=== PATIENT | male | born 1940 | race Caucasian/White ===

== ENCOUNTER 2016-08-26 19:10 | Inpatient (IN) | payer OTHER, MEDICARE ==
[2016-08-26] MEDS ORDERED: SODIUM CHLORIDE 1,000 ML IV STA (19:53)
--- NOTE | 2016-08-26 19:56 | PDOC ---
History of Present Illness <Leo Tan - Last Filed: 08/26/16 21:02> - General History Source: Patient Exam Limitations: No Limitations - History of Present Illness Initial Comments: 08/26/16 20:18 The patient is a 76 year old male with significant past medical history of lymphoma leukemia, hypertension, and hyperlipidemia who presents to the ED sent by PMD for elevated calcium levels. As per daughter, at bedside, patient visited Dr. Love today in his office where he had his blood drawn. Later in the evening, daughter was informed that the patients calcium levels were significantly elevated and patient should be brought into the ER. Patient has a schedule CT as an outpatient tomorrow morning. Daughter reports she noted patient has not been himself and noted a gradual decline over the past month. Normally, patient is active at baseline. She also reports intermittent fever and chills with diffuse abdominal pain, generalized weakness and loss of appetite over the past month and noted a weight loss over the past few months. The patient denies diaphoresis, cough, SOB, and chest pain. The patient denies nausea, vomiting, and diarrhea. Allergies: NKDA Social History: No alcohol, tobacco, or drug use reported. Past Surgical History: Appendectomy, CABG X4 (2002), Cholecystectomy PCP: Dr. Jamel Love <Mehreen Navarro - Last Filed: 08/26/16 22:14> - General Chief Complaint: Revisit, Lab Variance Stated Complaint: PCP SENT/WEAKNESS Time Seen by Provider: 08/26/16 19:47 Past History - Past Medical History Anemia: No Cancer: Yes (LYMPHOMA CLL) Cardiac Disorders: Yes (ASHD S/P CABG) CVA: No CHF: No Dementia: No Diabetes: No GI Disorders: Yes (DUODENAL ADENOMA, PEPTIC ULCER, S/P INFECTIOUS COLITIS) Disorders: Yes (URETHRAL POLYP) HTN: Yes Hypercholesterolemia: Yes Liver Disease: No Seizures: No Thyroid Disease: No - Surgical History Abdominal Surgery: No Appendectomy: Yes Cardiac Surgery: Yes (CABG X4 VESSELS 2002) Cholecystectomy: Yes (2006) Lung Surgery: No Neurologic Surgery: No Orthopedic Surgery: No - Immunization History Immunization Up to Date: Yes - Psycho/Social/Smoking Cessation Hx Suicidal Ideation: No Smoking History: Never smoked Have you smoked in the past 12 months: No Number of Cigarettes Smoked Daily: 0 Information on smoking cessation initiated: No Hx Alcohol Use: No Drug/Substance Use Hx: No Substance Use Type: None Hx Substance Use Treatment: No <Leo Tan - Last Filed: 08/26/16 21:02> <Mehreen Navarro - Last Filed: 08/26/16 22:14> - Past Medical History Allergies/Adverse Reactions: Allergies Allergy/AdvReac Type Severity Reaction Status Date / Time No Known Drug Allergies Allergy Verified 08/26/16 19:33 Home Medications: Ambulatory Orders Amlodipine Besylate [Norvasc -] 10 mg PO DAILY 05/07/13 Aspirin [ASA -] 81 mg PO DAILY 05/07/13 Quinapril HCl [Accupril -] 40 mg PO DAILY 05/07/13 Pravastatin Sodium [Pravachol -] 20 mg PO HS 05/10/13 Silodosin [Rapaflo] 8 mg PO HS 05/10/13 Cholecalciferol (Vitamin D3) [Vitamin D -] 400 unit PO DAILY 09/28/15 Cyanocobalamin (Vitamin B-12) [Vitamin B12] 2,500 mcg PO DAILY 09/28/15 Metoprolol Succinate [Toprol Xl] 50 mg PO DAILY 09/28/15 Pantoprazole Sodium [Protonix -] 40 mg PO DAILY #30 tablet.ec 09/29/15 Review of Systems - Review of Systems Able to Perform ROS?: Yes Comments:: 08/26/16 20:18 +elevated calcium, fever, chills, diffuse abdominal pain, generalized weakness , loss of appetite and weight loss Absent: diaphoresis, cough, SOB, chest pain, nausea, vomiting, and diarrhea <Mehreen Navarro - Last Filed: 08/26/16 22:14> *Physical Exam - Vital Signs Last Vital Signs Temp Pulse Resp BP Pulse Ox 97.8 F 86 14 119/73 95 08/26/16 19:33 08/26/16 19:33 08/26/16 19:33 08/26/16 19:33 08/26/16 19:33 - Physical Exam General Appearance: Yes: Nourished, Appropriately Dressed HEENT: positive: EOMI, Normal ENT Inspection Neck: positive: Supple. negative: Tender Respiratory/Chest: positive: Lungs Clear, Normal Breath Sounds. negative: Respiratory Distress Cardiovascular: positive: Regular Rhythm, Regular Rate, Systolic Murmur Musculoskeletal: positive: Normal Inspection. negative: Vertebral Tenderness Extremity: positive: Normal Capillary Refill, Normal Inspection, Normal Range of Motion. negative: Pedal Edema Integumentary: positive: Normal Color. negative: Rash, Ecchymosis Neurologic: positive: Fully Oriented, Alert, Normal Mood/Affect, Normal Response , Motor Strength 5/5 <Leo Tan - Last Filed: 08/26/16 21:02> - Vital Signs Last Vital Signs Temp Pulse Resp BP Pulse Ox 97.8 F 86 14 119/73 95 08/26/16 19:33 08/26/16 19:33 08/26/16 19:33 08/26/16 19:33 08/26/16 19:33 <Mehreen Navarro - Last Filed: 08/26/16 22:14> Heart Score/ECG Review - ECG Impressions Comment:: 08/26/16 22:13 Sinus rhythm with 1st degree AV block @74bpm Nonspecific intraventricular conduction delay Borderline ECG <Mehreen Navarro - Last Filed: 08/26/16 22:14> ED Treatment Course - LABORATORY CBC & Chemistry Diagram: 08/26/16 20:15 08/26/16 20:15 <Leo Tan - Last Filed: 08/26/16 21:02> - LABORATORY CBC & Chemistry Diagram: 08/26/16 20:15 08/26/16 20:15 <Mehreen Navarro - Last Filed: 08/26/16 22:14> Medical Decision Making - Medical Decision Making 08/26/16 20:[address] Dariusz Myers covering for Dr. Jamel Love (via answering service ) at 20:54 Awaiting call back Patient's case discussed with Dr. Myers at 21:06 <Mehreen Navarro - Last Filed: 08/26/16 22:14> *DC/Admit/Observation/Transfer - Discharge Dispostion Admit: Yes <Leo Tan - Last Filed: 08/26/16 21:02> - Attestations Scribe Attestion: 08/26/16 20:18 Documentation prepared by Mehreen Navarro, acting as medical file clerk for Leo Tan MD. <Mehreen Navarro - Last Filed: 08/26/16 22:14> Diagnosis at time of Disposition: Hypercalcemia - Referrals
[2016-08-26 20:22] LABS: BASOPHIL 1.2 % (0-2.0); EOSINOPHIL 1.6 % (0-4.5); MCHC 33.9 g/dl (32.0-35.9); MEAN CELL VOLUME 85.3 fl (80-96); MEAN PLT VOLUME 7.5 fl (7.5-11.1); NEUTROPHILS 53.7 % (42.8-82.8); PLATELET COUNT 246 K/MM3 (134-434); RDW 15.1 % (11.9-15.9); WHITE BLOOD COUNT 9.5 K/mm3 (4.0-10.0)
[2016-08-26 20:39] LABS: CREATININE 1.9 mg/dL (0.7-1.3)
[2016-08-26] MEDS ORDERED: PATIENT'S OWN MEDICATION (NON-FORMULARY) (Pravastatin Sodium 20 MG) PO SCH (22:00)
[2016-08-26] MEDS ORDERED: HEPARIN NA (PORCINE) 5,000 UNITS/ML 1ML VIAL ONE (22:18)
[2016-08-26 22:30] LABS: URINE APPEARANCE CLEAR; URINE BILIRUBIN NEGATIVE (NEGATIVE); URINE BLOOD NEGATIVE (NEGATIVE); URINE COLOR STRAW; URINE GLUCOSE (UA) NEGATIVE (NEGATIVE); URINE KETONE NEGATIVE (NEGATIVE); URINE LEUK ESTERASE NEGATIVE (NEGATIVE); URINE NITRITE NEGATIVE (NEGATIVE); URINE PROTEIN NEGATIVE (NEGATIVE); URINE UROBILINOGEN NEGATIVE E.U./dl (0.2-1.0)
[2016-08-26] MEDS: HEPARIN NA (PORCINE) 5,000 UNITS/ML 1ML VIAL SQ SCH (22:30)
[2016-08-26] MEDS: SODIUM CHLORIDE 1,000 ML IV SCH (22:30)
[2016-08-27 00:46] VITALS: BMI 23.8
[2016-08-27] MEDS: HEPARIN NA (PORCINE) 5,000 UNITS/ML 1ML VIAL SQ SCH ×3 (06:52→21:31)
[2016-08-27 08:04] LABS: EOSINOPHIL 2.1 % (0-4.5); MCH 29.7 pg (25.7-33.7); MCHC 35.1 g/dl (32.0-35.9); MEAN CELL VOLUME 84.7 fl (80-96); MEAN PLT VOLUME 7.2 fl (7.5-11.1); NEUTROPHILS 53.5 % (42.8-82.8); PLATELET COUNT 194 K/MM3 (134-434); RDW 14.5 % (11.9-15.9); WHITE BLOOD COUNT 8.8 K/mm3 (4.0-10.0)
[2016-08-27 08:35] LABS: ALBUMIN 3.4 g/dl (3.4-5.0); CALCIUM 12.7 mg/dL (8.5-10.1); CREATININE 1.9 mg/dL (0.7-1.3); MAGNESIUM 1.6 mg/dL (1.8-2.4); PHOSPHOROUS 2.6 mg/dL (2.5-4.9)
[2016-08-27 08:36] LABS: BILIRUBIN,TOTAL 0.6 mg/dL (0.2-1.0); TOT PROT 6.3 g/dl (6.4-8.2)
[2016-08-27] MEDS: METOPROLOL SUCCINATE 50 MG TAB.SR.24H (FP) PO SCH (09:45)
[2016-08-27] MEDS: CYANOCOBALAMIN 1,000 MCG TABLET (FP) PO SCH (09:45)
[2016-08-27] MEDS: PANTOPRAZOLE 40 MG TABLET (FP) PO SCH (09:45)
[2016-08-27] MEDS: ASPIRIN 81 MG CHEWABLE TABLETS PO SCH (09:45)
[2016-08-27] MEDS ORDERED: METOPROLOL SUCCINATE 50 MG TAB.SR.24H (FP) PO SCH (10:00)
[2016-08-27] MEDS ORDERED: amLODIPine BESYLATE 10 MG TABLET (FP) PO SCH (10:00)
--- NOTE | 2016-08-27 11:29 | HP ---
Admitting History and Physical - Primary Care Physician PCP: Jamel Love - Admission Chief Complaint: I was not eating History of Present Illness: Mr Saucedo is a very pleasant 76 year old male who comes in after being found to have elevated calcium. History comes from patient, but is partly translated by son at bedside since Malian is his first language. Mr Saucedo states over the past 2-4 weeks he has not been feeling well. He says that his appetite has been severely decreased and he has been nauseous without vomiting. He has not been eating when he normally eats 3 meals. He has lost about 15 pounds secondary to this. He is having diffuse abdominal pain with this as well. He had a general lethargy and weakness associated with this. He was also having lightheadedness, particularly on standing these past few weeks.He was seen by Dr Love and his blood was drawn, his calcium was elevated and he was instructed to come in for admission. He received IVF and currently is feeling better. He says his appetite is improved today and the pain is resolved. He also has more energy. He denies passing out, fevers, chills, chest pain, shortness of breath, diarrhea, difficulty or pain on urination, or swelling. History Source: Patient Limitations to Obtaining History: Language Barrier - Past Medical History Cardiovascular: Yes: CAD, HTN, Hyperlipdemia Heme/Onc: Yes: Other (leukemia) - Past Surgical History Past Surgical History: Yes: Appendectomy, CABG, Cholecystectomy - Smoking History Smoking history: Never smoked Have you smoked in the past 12 months: No Aproximately how many cigarettes per day: 0 - Alcohol/Substance Use Hx Alcohol Use: No History of Substance Use: reports: None - Social History Usual Living Arrangement: Yes: With Spouse ADL: Independent History of Recent Travel: No Home Medications - Allergies Allergies/Adverse Reactions: Allergies Allergy/AdvReac Type Severity Reaction Status Date / Time No Known Drug Allergies Allergy Verified 08/26/16 19:33 - Home Medications Home Medications: Ambulatory Orders Amlodipine Besylate [Norvasc -] 10 mg PO DAILY 05/07/13 Aspirin [ASA -] 81 mg PO DAILY 05/07/13 Quinapril HCl [Accupril -] 40 mg PO DAILY 05/07/13 Pravastatin Sodium [Pravachol -] 20 mg PO HS 10/14/13 Silodosin [Rapaflo] 8 mg PO HS 05/10/13 Cholecalciferol (Vitamin D3) [Vitamin D -] 400 unit PO DAILY 09/28/15 Cyanocobalamin (Vitamin B-12) [Vitamin B12] 2,500 mcg PO DAILY 09/28/15 Metoprolol Succinate [Toprol Xl] 50 mg PO DAILY 09/28/15 Family Disease History - Family Disease History Family Disease History: Heart Disease: Father Review of Systems Findings/Remarks: Full review of systems obtained, as per HPI and otherwise negative Physical Examination Vital Signs: Vital Signs Temperature 98.4 F 08/27/16 06:20 Pulse Rate 68 08/27/16 06:20 Respiratory Rate 20 08/27/16 06:20 Blood Pressure 126/72 08/27/16 06:20 O2 Sat by Pulse Oximetry (%) 96 08/26/16 21:08 Constitutional: Yes: Well Nourished, No Distress, Calm Eyes: Yes: Conjunctiva Clear, EOM Intact HENT: Yes: Atraumatic, Normocephalic Cardiovascular: Yes: Regular Rate and Rhythm. No: Gallop, Murmur, Rub Respiratory: Yes: Regular, CTA Bilaterally. No: Rales, Rhonchi, Wheezes Gastrointestinal: Yes: Normal Bowel Sounds, Soft. No: Distention, Tenderness Extremities: Yes: WNL Edema: No Labs: CBC, BMP 08/27/16 07:30 08/27/16 07:30 Problem List - Problems (1) Hypercalcemia Assessment/Plan: -concerning this is most likely secondary to malignancy -TSH normal, not secondary to hyperthyroidism -check iPTH and ionized calcium, however since calcium is above 14 less likely primary hyperparathyroidism -continue hydration, improved -will hold on lasix unless nephrology feels is needed -nephrology consulted -oncology consulted Code(s): E83.52 - HYPERCALCEMIA (2) Abdominal pain Assessment/Plan: -suspect this is most likely secondary to hypercalcemia -also associated with nausea and anorexia -however will consult GI as well -considering CT scan as can be caused by solid tumors such as pancreatic cancer -however will await oncology and GI evaluation Code(s): R10.9 - UNSPECIFIED ABDOMINAL PAIN (3) JEROMY (acute kidney injury) Assessment/Plan: -unsure if this is new or chronic as last lab was 5 years ago -continue hydration -monitor Code(s): N17.9 - ACUTE KIDNEY FAILURE, UNSPECIFIED (4) CAD (coronary artery disease) Assessment/Plan: -stable -continue aspirin and toprol xl -continue statin Code(s): I25.10 - ATHSCL HEART DISEASE OF [place] CORONARY ARTERY W/O ANG PCTRS (5) HTN (hypertension) Assessment/Plan: -controlled -holding lisinopril and amlodipine -if elevates, will add back amlodipine -monitor renal function to evaluate if lisinopril is needed as well -suspect after appropriately fluid resuscitated will increase Code(s): I10 - ESSENTIAL (PRIMARY) HYPERTENSION (6) HLD (hyperlipidemia) Assessment/Plan: -continue statin Code(s): E78.5 - HYPERLIPIDEMIA, UNSPECIFIED
[2016-08-27] MEDS: SODIUM CHLORIDE 1,000 ML IV SCH ×2 (12:26→20:28)
--- NOTE | 2016-08-27 15:10 | CONSULT ---
Consultation: REQUESTING PROVIDER: CONSULT REQUEST: We have been asked to medically evaluate this patient for (ckd and hypercalcemia). HISTORY OF PRESENT ILLNESS: patient is a 76 year old male with significant past medical history of lymphoma leukemia, hypertension, and hyperlipidemia who presents to the ED sent by PMD for elevated calcium levels. Patient also report loss of apatite and loss of weight in last few months REVIEW OF SYSTEMS: CONSTITUTIONAL: present generalized weakness, loss of appetite, loss of weight Absent: fever, chills, HEENT: Absent: rhinorrhea, nasal congestion, throat pain, throat swelling, CARDIOVASCULAR: Absent: chest pain, syncope, palpitations, lightheadedness, peripheral edema RESPIRATORY: Absent: cough, shortness of breath, GASTROINTESTINAL: present: pain abdomen Absent: abdominal distension, vomiting, diarrhea, constipation GENITOURINARY: Absent: dysuria, frequency, urgency, hesitancy, hematuria, PHYSICAL EXAMINATION Vital Signs - 24 hr 08/27/16 08/27/16 08/27/16 01:55 06:20 09:00 Temperature 97.8 F 98.4 F Pulse Rate 64 68 Respiratory 18 20 20 Rate Blood Pressure 145/63 126/72 O2 Sat by Pulse 96 Oximetry (%) 08/27/16 08/27/16 08/27/16 10:00 14:00 14:27 Temperature 97.9 F 98.4 F 98.1 F Pulse Rate 77 80 81 Respiratory 20 20 Rate Blood Pressure 128/72 144/81 144/81 O2 Sat by Pulse Oximetry (%) GENERAL: Awake, alert, and fully oriented, in no acute distress. HEAD: Normal with no signs of trauma. EYES: Pupils equal, round and reactive to light, EARS, NOSE, THROAT: Ears normal, nares patent, oropharynx clear without exudates. Moist mucous membranes. NECK: Normal range of motion, left supraclavicular lymphadenopathy, LUNGS: Breath sounds equal, clear to auscultation bilaterally. No wheezes, and no crackles. No accessory muscle use. HEART: s1s2 normal ABDOMEN: Soft, nontender, not distended, normoactive bowel sounds, no guarding, no rebound, MUSCULOSKELETAL: Normal range of motion at all joints. No bony deformities or tenderness. No CVA tenderness. UPPER EXTREMITIES: 2+ pulses, warm, well-perfused. No cyanosis. No clubbing. LOWER EXTREMITIES: 2+ pulses, warm, well-perfused. No calf tenderness. No peripheral edema. PSYCHIATRIC: Cooperative. Good eye contact. SKIN: Warm, dry, Laboratory Results - last 24 hr 08/26/16 08/27/16 08/27/16 22:24 07:30 07:30 WBC 8.8 RBC 4.16 Hgb 12.4 Hct 35.3 L MCV 84.7 MCHC 35.1 RDW 14.5 Plt Count 194 D MPV 7.2 L Neutrophils % 53.5 Lymphocytes % 35.0 Monocytes % 8.4 Eosinophils % 2.1 Basophils % 1.0 Sodium 142 Potassium 3.6 Chloride 105 Carbon Dioxide 28 Anion Gap 9 BUN 36 H Creatinine 1.9 H Creat Clearance w eGFR 34.46 Random Glucose 106 D Calcium 12.7 H Phosphorus 2.6 Magnesium 1.6 L Total Bilirubin 0.6 AST 16 ALT 16 Alkaline Phosphatase 66 Total Protein 6.3 L Albumin 3.4 Urine Color Straw Urine Appearance Clear Urine pH 6.0 Ur Specific [place] 1.006 Urine Protein Negative Urine Glucose (UA) Negative Urine Ketones Negative Urine Blood Negative Urine Nitrite Negative Urine Bilirubin Negative Urine Urobilinogen Negative Ur Leukocyte Esterase Negative Active Medications Generic Name Dose Route Start Last Admin Trade Name Freq PRN Reason Stop Dose Admin Acetaminophen 650 mg 08/26/16 21:21 Tylenol - PO Q4H PRN FEVER OR PAIN Aspirin 81 mg 08/27/16 10:00 08/27/16 09:45 Asa - PO 81 mg DAILY FREDY Administration Cyanocobalamin 2,500 mcg 08/27/16 10:00 08/27/16 09:45 Vitamin B12 - PO 2,500 mcg DAILY FREDY Administration Heparin Sodium (Porcine) 5,000 unit 08/26/16 22:00 08/27/16 14:01 Heparin - SQ 5,000 unit TID FREDY Administration Sodium Chloride 1,000 mls @ 150 mls/hr 08/27/16 13:30 Normal Saline - IV ASDIR FREDY Metoprolol Succinate 50 mg 08/27/16 10:00 08/27/16 09:45 Toprol Xl - PO 50 mg DAILY FREDY Administration Non-Formulary Medication 20 mg 08/26/16 22:00 Pravastatin Sodium PO HS FREDY Pantoprazole Sodium 40 mg 08/27/16 10:00 08/27/16 09:45 Protonix - PO 40 mg DAILY FREDY Administration ASSESSMENT/PLAN: impression Hypercalcemia JEROMY CAD HTN HLD H/O small lymphocytic lymphoma/CLL Plan Hypercalcemia could be due to malignancy Continue with IV fluid, Ca decreased 12.7, responding to Iv fluid Follow PTH, chances of primary hyperparathyroidism is less Oncology consult Get labs in morning low calcium diet Follow ua and urine elcetrolytes, urine creatnine follow renal USG follow cxr Avoid nephrotoxic drugs, hold lisinopril Dispo: We will continue to follow the patient. Thank you for this consultative opportunity. Visit type - Emergency Visit Emergency Visit: Yes ED Registration Date: 08/26/16 Care time: The patient presented to the Emergency Department on the above date and was hospitalized for further evaluation of their emergent condition. - New Patient This patient is new to me today: Yes Date on this admission: 08/27/16 - Critical Care Critical Care patient: No
--- NOTE | 2016-08-27 15:17 | CONSULT ---
Consultation: REQUESTING PROVIDER: CONSULT REQUEST: We have been asked to medically evaluate this patient for ( Abdominal pain ). HISTORY OF PRESENT ILLNESS: 76 year old male with pmh Duodenal adenoma, Peptic ulcer at 15, Hpilori Gastritis (treated), Pancreatic cyst, CLL, CAD, CABG, HTN, HPLD presented to the ED for hypercalcemia. For the last 2 month pt states he lost 13 lbs, also for the last month he has been having generalized weakness, lethargy, lightheadedness, malaise, nausea, gas and anorexia. Pt also had intermittent diffuse abdominal pain, burning, sometimes cramping associated with food lasting 2-4 hours, non radiating. When arrived in the ED pt had Ca level of 14, pt was treated with IV fluid, this morning Ca was 12. Now pt has much more energy no more dizziness. Appetite has returned, pt ate breakfast and lunch, no longer nauseous. Abdominal pain has subsided. Pt denies any diarrhea, last bowel movement was 3 days ago REVIEW OF SYSTEMS: CONSTITUTIONAL: Absent: fever, chills, diaphoresis, generalized weakness, malaise, loss of appetite, weight change HEENT: Absent: rhinorrhea, nasal congestion, throat pain, throat swelling, difficulty swallowing, mouth swelling, ear pain, eye pain, visual changes CARDIOVASCULAR: Absent: chest pain, syncope, palpitations, irregular heart rate, lightheadedness , peripheral edema RESPIRATORY: Absent: cough, shortness of breath, dyspnea with exertion, orthopnea, wheezing, stridor, hemoptysis GASTROINTESTINAL: Absent: abdominal pain, abdominal distension, nausea, vomiting, diarrhea, constipation, melena, hematochezia GENITOURINARY: Absent: dysuria, frequency, urgency, hesitancy, hematuria, flank pain, genital pain MUSCULOSKELETAL: Absent: myalgia, arthralgia, joint swelling, back pain, neck pain SKIN: Absent: rash, itching, pallor HEMATOLOGIC/IMMUNOLOGIC: Absent: easy bleeding, easy bruising, lymphadenopathy, frequent infections ENDOCRINE: Absent: unexplained weight gain, unexplained weight loss, heat intolerance, cold intolerance NEUROLOGIC: Absent: headache, focal weakness or paresthesias, dizziness, unsteady gait, seizure, mental status changes, bladder or bowel incontinence PSYCHIATRIC: Absent: anxiety, depression, suicidal or homicidal ideation, hallucinations. PHYSICAL EXAMINATION Vital Signs - 24 hr 08/27/16 08/27/16 08/27/16 01:55 06:20 09:00 Temperature 97.8 F 98.4 F Pulse Rate 64 68 Respiratory 18 20 20 Rate Blood Pressure 145/63 126/72 O2 Sat by Pulse 96 Oximetry (%) 08/27/16 08/27/16 08/27/16 10:00 14:00 14:27 Temperature 97.9 F 98.4 F 98.1 F Pulse Rate 77 80 81 Respiratory 20 20 Rate Blood Pressure 128/72 144/81 144/81 O2 Sat by Pulse Oximetry (%) GENERAL: Awake, alert, and fully oriented, in no acute distress. HEAD: Normal with no signs of trauma. EYES: Pupils equal, round and reactive to light, extraocular movements intact, sclera anicteric, conjunctiva clear. No lid lag. EARS, NOSE, THROAT: Ears normal, nares patent, oropharynx clear without exudates. Moist mucous membranes. NECK: Normal range of motion, supple without lymphadenopathy, JVD, or masses. LUNGS: Breath sounds equal, clear to auscultation bilaterally. No wheezes, and no crackles. No accessory muscle use. HEART: Regular rate and rhythm, normal S1 and S2 without murmur, rub or gallop. ABDOMEN: Soft, nontender, not distended, normoactive bowel sounds, no guarding, no rebound, no masses. No hepatomegaly or splenomegaly. MUSCULOSKELETAL: Normal range of motion at all joints. No bony deformities or tenderness. No CVA tenderness. UPPER EXTREMITIES: 2+ pulses, warm, well-perfused. No cyanosis. No clubbing. Cap refill <2 seconds. No peripheral edema. LOWER EXTREMITIES: 2+ pulses, warm, well-perfused. No calf tenderness. No peripheral edema. NEUROLOGICAL: Cranial nerves II-XII intact. Normal speech. Normal gait. PSYCHIATRIC: Cooperative. Good eye contact. Appropriate mood and affect. SKIN: Warm, dry, normal turgor, no rashes or lesions noted. Laboratory Results - last 24 hr 08/26/16 08/27/16 08/27/16 22:24 07:30 07:30 WBC 8.8 RBC 4.16 Hgb 12.4 Hct 35.3 L MCV 84.7 MCHC 35.1 RDW 14.5 Plt Count 194 D MPV 7.2 L Neutrophils % 53.5 Lymphocytes % 35.0 Monocytes % 8.4 Eosinophils % 2.1 Basophils % 1.0 Sodium 142 Potassium 3.6 Chloride 105 Carbon Dioxide 28 Anion Gap 9 BUN 36 H Creatinine 1.9 H Creat Clearance w eGFR 34.46 Random Glucose 106 D Calcium 12.7 H Phosphorus 2.6 Magnesium 1.6 L Total Bilirubin 0.6 AST 16 ALT 16 Alkaline Phosphatase 66 Total Protein 6.3 L Albumin 3.4 Urine Color Straw Urine Appearance Clear Urine pH 6.0 Ur Specific [place] 1.006 Urine Protein Negative Urine Glucose (UA) Negative Urine Ketones Negative Urine Blood Negative Urine Nitrite Negative Urine Bilirubin Negative Urine Urobilinogen Negative Ur Leukocyte Esterase Negative Active Medications Generic Name Dose Route Start Last Admin Trade Name Freq PRN Reason Stop Dose Admin Acetaminophen 650 mg 08/26/16 21:21 Tylenol - PO Q4H PRN FEVER OR PAIN Aspirin 81 mg 08/27/16 10:00 08/27/16 09:45 Asa - PO 81 mg DAILY FREDY Administration Cyanocobalamin 2,500 mcg 08/27/16 10:00 08/27/16 09:45 Vitamin B12 - PO 2,500 mcg DAILY FREDY Administration Heparin Sodium (Porcine) 5,000 unit 08/26/16 22:00 08/27/16 14:01 Heparin - SQ 5,000 unit TID FREDY Administration Sodium Chloride 1,000 mls @ 150 mls/hr 08/27/16 13:30 Normal Saline - IV ASDIR FREDY Metoprolol Succinate 50 mg 08/27/16 10:00 08/27/16 09:45 Toprol Xl - PO 50 mg DAILY FREDY Administration Non-Formulary Medication 20 mg 08/26/16 22:00 Pravastatin Sodium PO HS FREDY Pantoprazole Sodium 40 mg 08/27/16 10:00 08/27/16 09:45 Protonix - PO 40 mg DAILY FREDY Administration ASSESSMENT/PLAN: Dispo: We will continue to follow the patient. Thank you for this consultative opportunity.
[2016-08-27] MEDS ORDERED: MECLIZINE HCL 25 MG TABLET (FP) PO PRN (15:35)
--- NOTE | 2016-08-27 16:00 | CON.GI ---
Consult - History of Present Illness History of Present Illness: 76 year old male with pmh Duodenal adenoma, Peptic ulcer at 15, Hpilori Gastritis (treated), Pancreatic cyst, CLL, CAD, CABG, HTN, HPLD presented to the ED for hypercalcemia. For the last 2 month pt states he lost 13 lbs, also for the last month he has been having generalized weakness, lethargy, lightheadedness, malaise, nausea, gas and anorexia. Pt also had intermittent diffuse abdominal pain, burning, sometimes cramping associated with food lasting 2-4 hours, non radiating. When arrived in the ED pt had Ca level of 14, pt was treated with IV fluid, this morning Ca was 12. Now pt has much more energy no more dizziness. Appetite has returned, pt ate breakfast and lunch, no longer nauseous. Abdominal pain has subsided. Pt denies any diarrhea, last bowel movement was 3 days ago, brown, non bloody, no pus. Pt said his bowel movement are sometimes yellow, brown or black. His last colonoscopy was 6 years ago and was negative per pt. His last EGD was in 2015 and has gastric atrophy No fever, no chills. - History Source History Provided By: Patient Limitations to Obtaining History: No Limitations - Past Medical History Cardio/Vascular: Yes: CAD, HTN, Hyperlipdemia Gastrointestinal: Yes: Gastritis, GERD, Peptic Ulcer Disease, Other (Duodenal adenoma, Pancreatic cyst, S/P Infectious colitis on 06/07) Renal/: Yes: Renal Inusuff, BPH Heme/Onc: Yes: Other (Small lymphocytic Lymphoma, CLL, Polycythemia Vera ) - Past Surgical History Past Surgical History: Yes: Appendectomy, CABG, Cholecystectomy Additional Surgical History: cataract surgery - Alcohol/Substance Use Hx Alcohol Use: No History of Substance Use: reports: None - Smoking History Smoking history: Never smoked Have you smoked in the past 12 months: No Aproximately how many cigarettes per day: 0 - Social History ADL: Independent History of Recent Travel: No Home Medications - Allergies Allergies/Adverse Reactions: Allergies Allergy/AdvReac Type Severity Reaction Status Date / Time No Known Drug Allergies Allergy Verified 08/26/16 19:33 - Home Medications Home Medications: Ambulatory Orders Amlodipine Besylate [Norvasc -] 10 mg PO DAILY 05/07/13 Aspirin [ASA -] 81 mg PO DAILY 05/07/13 Quinapril HCl [Accupril -] 40 mg PO DAILY 05/07/13 Pravastatin Sodium [Pravachol -] 20 mg PO HS 05/10/13 Silodosin [Rapaflo] 8 mg PO HS 05/10/13 Cholecalciferol (Vitamin D3) [Vitamin D -] 400 unit PO DAILY 09/28/15 Cyanocobalamin (Vitamin B-12) [Vitamin B12] 2,500 mcg PO DAILY 09/28/15 Metoprolol Succinate [Toprol Xl] 50 mg PO DAILY 09/28/15 Family Disease History - Family Disease History Family Disease History: Heart Disease: Father Review of Systems - Review of Systems Constitutional: reports: Loss of Appetite, Malaise, Unintentional Wgt. Loss, Weakness HENT: reports: No Symptoms Cardiovascular: reports: No Symptoms Respiratory: reports: No Symptoms Gastrointestinal: reports: Abdominal Pain, Bloating, Nausea Musculoskeletal: reports: No Symptoms Neurological: reports: No Symptoms Endocrine: reports: No Symptoms Hematology/Lymphatic: reports: No Symptoms Psychiatric: reports: No Symptoms Physical Exam-GI Vital Signs: Vital Signs Temperature 98.1 F 08/27/16 14:27 Pulse Rate 81 08/27/16 14:27 Respiratory Rate 20 08/27/16 14:00 Blood Pressure 144/81 08/27/16 14:27 O2 Sat by Pulse Oximetry (%) 96 08/27/16 09:00 Constitutional: Yes: No Distress, Calm Eyes: Yes: WNL, Conjunctiva Clear. No: Sclera Icterus HENT: Yes: WNL Neck: Yes: Lymphadenopathy Cardiovascular: Yes: Regular Rate and Rhythm, Murmur, S1, S2 Respiratory: Yes: Regular, CTA Bilaterally Gastrointestinal Inspection: Yes: Scars (right lower quadrant horizontal scar) ...Auscultate: Yes: Normoactive Bowel Sounds ...Palpate: Yes: Soft, Tenderness, Epigastium. No: Hepatomegaly, Mass, Splenomegaly ...Percussion: Yes: Tympanitic ...Rectal Exam: Yes: WNL, Guaiac Negative, Hemorrhoids/External. No: Mass Genitourinary: Yes: WNL Musculoskeletal: Yes: WNL Extremities: Yes: WNL Edema: No Neurological: Yes: WNL, Alert, Oriented ...Motor Strength: WNL Labs: CBC, BMP 08/27/16 07:30 08/27/16 07:30 Assessment/Plan 76 year male hypercalcemia, Lymphoma, CLL with multiple constitutional symptoms which has improved with IV fluid normalizing of hypercalcemia. Pt was complaining of burning epigastric pain, nausea, anorexia which has resolved. Symptoms were likely rt to hypercalcemia, r/o GERD, GAstritis, PUD, pancreatic cyst. Pt has recent EGD with negative H. Pilori, atrophic gastritis and duodenitis and is on acid control therapy. MRI/MRCP w/o contrast due to renal insufficiency ordered for f/u of pancreatic cyst F/u Oncology consult Outpatient GI follow up Consider outpatient colonoscopy No further GI intervention at this point Thank for the opportunity to consult on this patient.
--- NOTE | 2016-08-27 16:16 | PN ---
Teaching Attending Note Name of Resident: Fausto Head ATTENDING PHYSICIAN STATEMENT I saw and evaluated the patient. I reviewed the resident's note and discussed the case with the resident. I agree with the resident's findings and plan as documented. SUBJECTIVE: 76M generalized malaise, abdominal pain, nausea, noted to have Ca: 14 Hydrated with improvement of symptoms H/O pancreatic cyst Currently no abdominal complaints EGD 10/10: No significant findings OBJECTIVE: Afeb / 81 / 144/81 Anicteric + Supraclavicular LN's Hrt RRR + 2/5 systolic murmur Lungs: CTA b/l Abd: soft +BS, NT/ND no HSM Ext: no LE edema ALDO: 2+ prostate, brown stool, guaiac negative ASSESSMENT Vague generalized malaiae / abdominal pain in setting of hypercalcemia / lymphadenopathy. h/o hematologic malignancy Guaiac negative on exam PLAN: Oncology evaluation MRI/MRCP without contrast given renal insufficiency ordered for f/u of pancreatic cyst When acute issues are resolved can follow-up in office to discuss elective colonoscopy No GI interventions planned at this time
--- NOTE | 2016-08-27 17:35 | PN ---
Teaching Attending Note Name of Resident: Sher Sanchez (Nephrology) ATTENDING PHYSICIAN STATEMENT I saw and evaluated the patient. I reviewed the resident's note and discussed the case with the resident. I agree with the resident's findings and plan as documented. Nephrology Consult Pt is a 76 year old male with pmhx of leukemia, HTN, and CAD who was sent to the hospital for hypercalcemia. He is awake and alert. He denies shortness of breath. He says he overall feels well. He denies dysuria or hematuria. He is awake and alert. I was called to evaluate him for hypercalcemia and JEROMY. PMHx HTN leukemia CAD NKDA social neg family hx denies ROS has no complaints Current Active Problems JEROMY (acute kidney injury) (Acute) Abdominal pain (Acute) CAD (coronary artery disease) (Acute) HLD (hyperlipidemia) (Acute) HTN (hypertension) (Acute) Hypercalcemia (Acute) Current Medications Generic Name Dose Route Start Last Admin Trade Name Freq PRN Reason Stop Dose Admin Acetaminophen 650 mg 08/26/16 21:21 Tylenol - PO Q4H PRN FEVER OR PAIN Aspirin 81 mg 08/27/16 10:00 08/27/16 09:45 Asa - PO 81 mg DAILY FREDY Administration Atorvastatin Calcium 10 mg 08/27/16 22:00 Lipitor - PO HS FREDY Cyanocobalamin 2,500 mcg 08/27/16 10:00 08/27/16 09:45 Vitamin B12 - PO 2,500 mcg DAILY FREDY Administration Heparin Sodium (Porcine) 5,000 unit 08/26/16 22:00 08/27/16 14:01 Heparin - SQ 5,000 unit TID FREDY Administration Sodium Chloride 1,000 mls @ 150 mls/hr 08/27/16 13:30 Normal Saline - IV ASDIR FREDY Meclizine HCl 25 mg 08/27/16 15:35 Antivert - PO Q6H PRN VERTIGO Metoprolol Succinate 50 mg 08/27/16 10:00 08/27/16 09:45 Toprol Xl - PO 50 mg DAILY FREDY Administration Pantoprazole Sodium 40 mg 08/27/16 10:00 08/27/16 09:45 Protonix - PO 40 mg DAILY FREDY Administration cardio s1s2 reg pulm clear GI soft ext neg edema neuro awake and alert skin neg rash Impression 1. Hypercalcemia 2. CAD 3. HTN 4. Chol 5. hx leukemia 6. JEROMY Plan - calcium responded to fluids - with check pth level - check cxr - repeat calcium in am - will check urine lytes and renal ultrasound, will work up for JEROMY - will discuss bisphosphonates with oncology - will keep on fluids for now as he is responding Dr Hopper
[2016-08-27] MEDS: ATORVASTATIN CA 10 MG TABLET (FP) PO SCH (21:29)
--- NOTE | 2016-08-27 23:10 | EKG ---
Test Reason : Blood Pressure : / mmHG Vent. Rate : 089 BPM Atrial Rate : 089 BPM P-R Int : 252 ms QRS Dur : 124 ms QT Int : 366 ms P-R-T Axes : 052 -21 055 degrees QTc Int : 445 ms SINUS RHYTHM WITH 1ST DEGREE A-V BLOCK NON-SPECIFIC INTRA-VENTRICULAR CONDUCTION DELAY BORDERLINE ECG WHEN COMPARED WITH ECG OF 26-AUG-2016 20:02, NO SIGNIFICANT CHANGE WAS FOUND Confirmed by CALLI CHATMAN, NABOR ([id number]) on 08/27/2016 11:10:19 PM Referred By: Confirmed By:NABOR MCCURDY MD
--- NOTE | 2016-08-27 23:22 | EKG ---
Test Reason : Blood Pressure : / mmHG Vent. Rate : 074 BPM Atrial Rate : 074 BPM P-R Int : 210 ms QRS Dur : 124 ms QT Int : 376 ms P-R-T Axes : 084 -13 062 degrees QTc Int : 417 ms SINUS RHYTHM WITH 1ST DEGREE A-V BLOCK NON-SPECIFIC INTRA-VENTRICULAR CONDUCTION DELAY BORDERLINE ECG WHEN COMPARED WITH ECG OF 17-JUN-2011 18:38, PREMATURE VENTRICULAR COMPLEXES ARE NO LONGER PRESENT T WAVE VARIATION Confirmed by NABOR MCCURDY MD ([id number]) on 08/27/2016 11:22:24 PM Referred By: Confirmed By:NABOR MCCURDY MD
[2016-08-28] MEDS: SODIUM CHLORIDE 1,000 ML IV SCH ×4 (05:29→18:58)
[2016-08-28] MEDS: HEPARIN NA (PORCINE) 5,000 UNITS/ML 1ML VIAL SQ SCH ×3 (06:29→21:57)
[2016-08-28 07:22] LABS: BASOPHIL 0.6 % (0-2.0); MCH 29.3 pg (25.7-33.7); MCHC 34.3 g/dl (32.0-35.9); MEAN CELL VOLUME 85.5 fl (80-96); MEAN PLT VOLUME 7.5 fl (7.5-11.1); PLATELET COUNT 190 K/MM3 (134-434); RDW 14.7 % (11.9-15.9); WHITE BLOOD COUNT 8.6 K/mm3 (4.0-10.0)
[2016-08-28 07:53] LABS: CALCIUM 12.2 mg/dL (8.5-10.1); MAGNESIUM 1.4 mg/dL (1.8-2.4)
[2016-08-28 07:56] LABS: CREATININE 1.9 mg/dL (0.7-1.3); PHOSPHOROUS 2.3 mg/dL (2.5-4.9)
[2016-08-28] MEDS: PANTOPRAZOLE 40 MG TABLET (FP) PO SCH (09:26)
[2016-08-28] MEDS: CYANOCOBALAMIN 1,000 MCG TABLET (FP) PO SCH (09:26)
[2016-08-28] MEDS: METOPROLOL SUCCINATE 50 MG TAB.SR.24H (FP) PO SCH (09:27)
[2016-08-28] MEDS: ASPIRIN 81 MG CHEWABLE TABLETS PO SCH (09:27)
--- NOTE | 2016-08-28 10:53 | CONSULT ---
Consultation: REQUESTING PROVIDER: CONSULT REQUEST: We have been asked to medically evaluate this patient for ( hypercalcemia and jeromy). HISTORY OF PRESENT ILLNESS: patient feels better states that his apatite is coming back. Also states that pain in abdomen has improved. REVIEW OF SYSTEMS: CONSTITUTIONAL: present generalized weakness, loss of appetite, loss of weight Absent: fever, chills, HEENT: Absent: rhinorrhea, nasal congestion, throat pain, throat swelling, CARDIOVASCULAR: Absent: chest pain, syncope, palpitations, lightheadedness, peripheral edema RESPIRATORY: Absent: cough, shortness of breath, GASTROINTESTINAL: present: pain abdomen Absent: abdominal distension, vomiting, diarrhea, constipation GENITOURINARY: Absent: dysuria, frequency, urgency, hesitancy, hematuria, PHYSICAL EXAMINATION Vital Signs - 24 hr 08/27/16 08/27/16 08/27/16 14:00 14:27 18:00 Temperature 98.4 F 98.1 F 98 F Pulse Rate 80 81 91 H Respiratory 20 20 Rate Blood Pressure 144/81 144/81 144/83 O2 Sat by Pulse Oximetry (%) 08/27/16 08/27/16 08/28/16 20:50 22:00 06:00 Temperature 98.7 F 97.6 F Pulse Rate 88 96 H Respiratory 18 18 Rate Blood Pressure 142/88 148/88 O2 Sat by Pulse 98 Oximetry (%) 08/28/16 09:26 Temperature 97.8 F Pulse Rate 84 Respiratory 20 Rate Blood Pressure 144/85 O2 Sat by Pulse Oximetry (%) GENERAL: Awake, alert, and fully oriented, in no acute distress. HEAD: Normal with no signs of trauma. EYES: Pupils equal, round and reactive to light, EARS, NOSE, THROAT: Ears normal, nares patent, oropharynx clear without exudates. Moist mucous membranes. NECK: Normal range of motion, left supraclavicular lymphadenopathy, LUNGS: Breath sounds equal, clear to auscultation bilaterally. No wheezes, and no crackles. No accessory muscle use. HEART: s1s2 normal ABDOMEN: Soft, nontender, not distended, normoactive bowel sounds, no guarding, no rebound, MUSCULOSKELETAL: Normal range of motion at all joints. No bony deformities or tenderness. No CVA tenderness. UPPER EXTREMITIES: 2+ pulses, warm, well-perfused. No cyanosis. No clubbing. LOWER EXTREMITIES: 2+ pulses, warm, well-perfused. No calf tenderness. No peripheral edema. PSYCHIATRIC: Cooperative. Good eye contact. SKIN: Warm, dry, Laboratory Results - last 24 hr 08/27/16 08/27/16 08/27/16 19:45 19:45 19:45 WBC RBC Hgb Hct MCV MCHC RDW Plt Count MPV Neutrophils % Lymphocytes % Monocytes % Eosinophils % Basophils % Sodium Potassium Chloride Carbon Dioxide Anion Gap BUN Creatinine Random Glucose Calcium Phosphorus Magnesium Ur Random Sodium 61 Ur Random Potassium 28.4 Ur Random Chloride 84 Urine Creatinine 52.6 Stool Occult Blood Negative 08/28/16 08/28/16 05:35 05:35 WBC 8.6 RBC 4.19 Hgb 12.3 Hct 35.8 MCV 85.5 MCHC 34.3 RDW 14.7 Plt Count 190 MPV 7.5 Neutrophils % 58.0 Lymphocytes % 30.6 Monocytes % 9.8 Eosinophils % 1.0 Basophils % 0.6 Sodium 142 Potassium 3.2 L Chloride 106 Carbon Dioxide 26 Anion Gap 10 BUN 28 H D Creatinine 1.9 H Random Glucose 108 H Calcium 12.2 H Phosphorus 2.3 L Magnesium 1.4 L Ur Random Sodium Ur Random Potassium Ur Random Chloride Urine Creatinine Stool Occult Blood Active Medications Generic Name Dose Route Start Last Admin Trade Name Freq PRN Reason Stop Dose Admin Acetaminophen 650 mg 08/26/16 21:21 Tylenol - PO Q4H PRN FEVER OR PAIN Aspirin 81 mg 08/27/16 10:00 08/28/16 09:27 Asa - PO 81 mg DAILY FREDY Administration Atorvastatin Calcium 10 mg 08/27/16 22:00 08/27/16 21:29 Lipitor - PO 10 mg HS FREDY Administration Cyanocobalamin 2,500 mcg 08/27/16 10:00 08/28/16 09:26 Vitamin B12 - PO 2,500 mcg DAILY FREDY Administration Heparin Sodium (Porcine) 5,000 unit 08/26/16 22:00 08/28/16 06:29 Heparin - SQ 5,000 unit TID FREDY Administration Sodium Chloride 1,000 mls @ 150 mls/hr 08/27/16 13:30 08/28/16 05:29 Normal Saline - IV 150 mls/hr ASDIR FREDY Administration Meclizine HCl 25 mg 08/27/16 15:35 Antivert - PO Q6H PRN VERTIGO Metoprolol Succinate 50 mg 08/27/16 10:00 08/28/16 09:27 Toprol Xl - PO 50 mg DAILY FREDY Administration Pantoprazole Sodium 40 mg 08/27/16 10:00 08/28/16 09:26 Protonix - PO 40 mg DAILY FREDY Administration ASSESSMENT/PLAN: impression Hypercalcemia JEROMY CAD HTN HLD H/O small lymphocytic lymphoma/CLL Plan Hypercalcemia could be due to malignancy Continue with IV fluid, Ca decreased 12.2, responding to Iv fluid PTH ( pending), chances of primary hyperparathyroidism is less Oncology consult pending repeat labs in morning low calcium diet renal USG : b/l hydronephrosis, no evidence of stone. insert ceron in view of b/l hydro with jeromy, cxr reviewed Avoid nephrotoxic drugs, hold lisinopril Dispo: We will continue to follow the patient. Thank you for this consultative opportunity. Visit type - Emergency Visit Emergency Visit: Yes ED Registration Date: 08/26/16 Care time: The patient presented to the Emergency Department on the above date and was hospitalized for further evaluation of their emergent condition. - New Patient This patient is new to me today: No - Critical Care Critical Care patient: No
--- NOTE | 2016-08-28 13:25 | PN ---
Teaching Attending Note Name of Resident: Sher Sanchez (Nephrology) ATTENDING PHYSICIAN STATEMENT I saw and evaluated the patient. I reviewed the resident's note and discussed the case with the resident. I agree with the resident's findings and plan as documented. Pt seen and examined at bedside. He has no complaints. cardio s1s2 reg pulm clear GI soft ext neg edema neuro awake and alert skin neg rash Impression 1. Hypercalcemia 2. CAD 3. HTN 4. Chol 5. hx leukemia 6. JEROMY 7. bilateral hydro 8. hypokalemia 9. hypomagnesemia Plan - will replace potassium and mag - cont with fluids - reviewed renal ultrasound, called and discussed findings with urology, will place ceron - calcium is improving - oncology is pending - will follow - pth is pending - cxr reviewed - will discuss bisphosphonates with oncology - will keep on fluids for now as he is responding Dr Hopper
[2016-08-28] MEDS ORDERED: MAGNESIUM SULF 50% (8.12 MEQ/2 ML-1 GM VIAL) IVPB ONE (13:45)
[2016-08-28] MEDS ORDERED: POTASSIUM CHLORIDE 40 MEQ/30 ML UNIT DOSE CUP PO ONE (13:45)
--- NOTE | 2016-08-28 15:38 | PN ---
Progress Note, Physician Chief Complaint: Mr Saucedo complains of vertigo. He cannot explain what causes it to happen. He says it lasts 5-10 minutes and then stops. I cannot tell if this is reoccurring or only once. Otherwise he is without complaint. No cp, sob, n/v. - Current Medication List Current Medications: Active Medications Acetaminophen (Tylenol -) 650 mg PO Q4H PRN PRN Reason: FEVER OR PAIN Aspirin (Asa -) 81 mg PO DAILY [facility] Last Admin: 08/28/16 09:27 Dose: 81 mg Atorvastatin Calcium (Lipitor -) 10 mg PO HS [facility] Last Admin: 08/27/16 21:29 Dose: 10 mg Cyanocobalamin (Vitamin B12 -) 2,500 mcg PO DAILY [facility] Last Admin: 08/28/16 09:26 Dose: 2,500 mcg Heparin Sodium (Porcine) (Heparin -) 5,000 unit SQ TID [facility] Last Admin: 08/28/16 13:53 Dose: 5,000 unit Sodium Chloride (Normal Saline -) 1,000 mls @ 150 mls/hr IV ASDIR [facility] Last Admin: 08/28/16 13:33 Dose: Not Given Meclizine HCl (Antivert -) 25 mg PO Q6H PRN PRN Reason: VERTIGO Metoprolol Succinate (Toprol Xl -) 50 mg PO DAILY [facility] Last Admin: 08/28/16 09:27 Dose: 50 mg Pantoprazole Sodium (Protonix -) 40 mg PO DAILY [facility] Last Admin: 08/28/16 09:26 Dose: 40 mg - Objective Vital Signs: Vital Signs Temperature 98.1 F 08/28/16 14:17 Pulse Rate 73 08/28/16 14:17 Respiratory Rate 20 08/28/16 09:26 Blood Pressure 149/77 08/28/16 14:17 O2 Sat by Pulse Oximetry (%) 98 08/27/16 20:50 Constitutional: Yes: Well Nourished, No Distress, Calm Cardiovascular: Yes: Regular Rate and Rhythm. No: Gallop, Murmur, Rub Respiratory: Yes: Regular, CTA Bilaterally. No: Rales, Rhonchi, Wheezes Gastrointestinal: Yes: Normal Bowel Sounds, Soft. No: Distention, Tenderness Extremities: Yes: WNL Edema: No Labs: CBC, BMP 08/28/16 05:35 08/28/16 05:35 Problem List - Problems (1) Hypercalcemia Code(s): E83.52 - HYPERCALCEMIA (2) Abdominal pain Code(s): R10.9 - UNSPECIFIED ABDOMINAL PAIN (3) JEROMY (acute kidney injury) Code(s): N17.9 - ACUTE KIDNEY FAILURE, UNSPECIFIED (4) CAD (coronary artery disease) Code(s): I25.10 - ATHSCL HEART DISEASE OF [place] CORONARY ARTERY W/O ANG PCTRS (5) HTN (hypertension) Code(s): I10 - ESSENTIAL (PRIMARY) HYPERTENSION (6) HLD (hyperlipidemia) Code(s): E78.5 - HYPERLIPIDEMIA, UNSPECIFIED Assessment/Plan (1) Hypercalcemia Assessment/Plan: -oncology consulted and will see -nephrology following -slightly improved today with hydration, overall good improvement -ionized calcium and intact pth pending Code(s): E83.52 - HYPERCALCEMIA (2) Abdominal pain Assessment/Plan: -appreciate GI assistance -note reviewed -MRCP read pending Code(s): R10.9 - UNSPECIFIED ABDOMINAL PAIN (3) JEROMY (acute kidney injury) Assessment/Plan: -case d/w nephrology -hydronephrosis noted -ceron placed -urology consulted Code(s): N17.9 - ACUTE KIDNEY FAILURE, UNSPECIFIED (4) CAD (coronary artery disease) Assessment/Plan: -stable -continue aspirin and toprol xl -continue statin Code(s): I25.10 - ATHSCL HEART DISEASE OF [place] CORONARY ARTERY W/O ANG PCTRS (5) HTN (hypertension) Assessment/Plan: -elevated -holding lisinopril -add back amlodipine Code(s): I10 - ESSENTIAL (PRIMARY) HYPERTENSION (6) HLD (hyperlipidemia) Assessment/Plan: -continue statin Code(s): E78.5 - HYPERLIPIDEMIA, UNSPECIFIED
--- NOTE | 2016-08-28 16:01 | PN ---
Progress Note (short form) - Note Progress Note: patient with bilateral hydronephrosis secondary large RP NIDIA. Will place bilateral ureteral stents on 08/29/16
[2016-08-28] MEDS: amLODIPine BESYLATE 5 MG TABLET (FP) PO SCH (16:29)
[2016-08-28] MEDS: ATORVASTATIN CA 10 MG TABLET (FP) PO SCH (22:15)
[2016-08-29] MEDS: SODIUM CHLORIDE 1,000 ML IV SCH ×2 (01:39→16:31)
[2016-08-29] MEDS: HEPARIN NA (PORCINE) 5,000 UNITS/ML 1ML VIAL SQ SCH ×3 (05:09→21:06)
[2016-08-29 08:09] LABS: BASOPHIL 0.5 % (0-2.0); EOSINOPHIL 1.8 % (0-4.5); MCH 29.1 pg (25.7-33.7); MEAN CELL VOLUME 85.5 fl (80-96); MEAN PLT VOLUME 7.3 fl (7.5-11.1); NEUTROPHILS 56.8 % (42.8-82.8); PLATELET COUNT 148 K/MM3 (134-434); RDW 14.4 % (11.9-15.9)
[2016-08-29 08:47] LABS: CALCIUM 10.8 mg/dL (8.5-10.1); CREATININE 1.6 mg/dL (0.7-1.3); MAGNESIUM 1.6 mg/dL (1.8-2.4); PHOSPHOROUS 1.8 mg/dL (2.5-4.9)
--- NOTE | 2016-08-29 09:15 | CONSULT ---
Consultation: REQUESTING PROVIDER: CONSULT REQUEST: We have been asked to medically evaluate this patient for ( hypercalcemia and jeromy). HISTORY OF PRESENT ILLNESS: Patient feels better, denies chest pain, sob, pain abdomen REVIEW OF SYSTEMS: CONSTITUTIONAL: present generalized weakness, loss of appetite, loss of weight Absent: fever, chills, HEENT: Absent: rhinorrhea, nasal congestion, throat pain, throat swelling, CARDIOVASCULAR: Absent: chest pain, syncope, palpitations, lightheadedness, peripheral edema RESPIRATORY: Absent: cough, shortness of breath, GASTROINTESTINAL: present: pain abdomen Absent: abdominal distension, vomiting, diarrhea, constipation GENITOURINARY: Absent: dysuria, frequency, urgency, hesitancy, hematuria, PHYSICAL EXAMINATION Vital Signs - 24 hr 08/28/16 08/28/16 08/28/16 09:26 14:17 18:00 Temperature 97.8 F 98.1 F 97.9 F Pulse Rate 84 73 96 H Respiratory 20 20 Rate Blood Pressure 144/85 149/77 133/79 O2 Sat by Pulse Oximetry (%) 08/28/16 08/28/16 08/29/16 21:00 21:48 05:30 Temperature 98.6 F 98.4 F Pulse Rate 66 67 Respiratory 16 20 Rate Blood Pressure 140/72 139/71 O2 Sat by Pulse 98 Oximetry (%) 08/29/16 09:00 Temperature 99.7 F H Pulse Rate 75 Respiratory 20 Rate Blood Pressure 150/78 O2 Sat by Pulse Oximetry (%) GENERAL: Awake, alert, and fully oriented, in no acute distress. HEAD: Normal with no signs of trauma. EYES: Pupils equal, round and reactive to light, EARS, NOSE, THROAT: Ears normal, nares patent, oropharynx clear without exudates. Moist mucous membranes. NECK: Normal range of motion, left supraclavicular lymphadenopathy, LUNGS: Breath sounds equal, clear to auscultation bilaterally. No wheezes, and no crackles. No accessory muscle use. HEART: s1s2 normal ABDOMEN: Soft, nontender, not distended, normoactive bowel sounds, no guarding, no rebound, MUSCULOSKELETAL: Normal range of motion at all joints. No bony deformities or tenderness. No CVA tenderness. UPPER EXTREMITIES: 2+ pulses, warm, well-perfused. No cyanosis. No clubbing. LOWER EXTREMITIES: 2+ pulses, warm, well-perfused. No calf tenderness. No peripheral edema. PSYCHIATRIC: Cooperative. Good eye contact. SKIN: Warm, dry, Laboratory Results - last 24 hr 08/29/16 08/29/16 07:20 07:20 WBC 7.0 RBC 3.75 L Hgb 10.9 L D Hct 32.0 L MCV 85.5 MCHC 34.0 RDW 14.4 Plt Count 148 D MPV 7.3 L Neutrophils % 56.8 Lymphocytes % 32.1 Monocytes % 8.8 Eosinophils % 1.8 Basophils % 0.5 Sodium 144 Potassium 3.3 L Chloride 107 Carbon Dioxide 27 Anion Gap 10 BUN 22 H D Creatinine 1.6 H Random Glucose 91 Calcium 10.8 H Phosphorus 1.8 L D Magnesium 1.6 L Active Medications Generic Name Dose Route Start Last Admin Trade Name Freq PRN Reason Stop Dose Admin Acetaminophen 650 mg 08/26/16 21:21 Tylenol - PO Q4H PRN FEVER OR PAIN Amlodipine Besylate 5 mg 08/28/16 16:00 08/28/16 16:29 Norvasc - PO 5 mg DAILY FREDY Administration Aspirin 81 mg 08/27/16 10:00 08/28/16 09:27 Asa - PO 81 mg DAILY FREDY Administration Atorvastatin Calcium 10 mg 08/27/16 22:00 08/28/16 22:15 Lipitor - PO 10 mg HS FREDY Administration Cyanocobalamin 2,500 mcg 08/27/16 10:00 08/28/16 09:26 Vitamin B12 - PO 2,500 mcg DAILY FREDY Administration Heparin Sodium (Porcine) 5,000 unit 08/26/16 22:00 08/29/16 05:09 Heparin - SQ Not Given TID FREDY Sodium Chloride 1,000 mls @ 150 mls/hr 08/27/16 13:30 08/29/16 01:39 Normal Saline - IV 150 mls/hr ASDIR FREDY Administration Meclizine HCl 25 mg 08/27/16 15:35 Antivert - PO Q6H PRN VERTIGO Metoprolol Succinate 50 mg 08/27/16 10:00 08/28/16 09:27 Toprol Xl - PO 50 mg DAILY FREDY Administration Pantoprazole Sodium 40 mg 08/27/16 10:00 08/28/16 09:26 Protonix - PO 40 mg DAILY FREDY Administration ASSESSMENT/PLAN: impression Hypercalcemia JEROMY CAD HTN HLD b/l hydronephrosis H/O small lymphocytic lymphoma/CLL Plan Continue with IV fluid, Ca decreased to 10.8 PTH pending Oncology consult pending creatnine decreased to 1.6 replace K and magnesium repeat labs in morning Avoid nephrotoxic drugs, hold lisinopril Dispo: We will continue to follow the patient. Thank you for this consultative opportunity. Visit type - Emergency Visit Emergency Visit: Yes ED Registration Date: 08/26/16 Care time: The patient presented to the Emergency Department on the above date and was hospitalized for further evaluation of their emergent condition. - New Patient This patient is new to me today: No - Critical Care Critical Care patient: No
[2016-08-29] MEDS ORDERED: POTASSIUM CHLORIDE 40 MEQ/30 ML UNIT DOSE CUP PO ONE (09:45)
[2016-08-29] MEDS ORDERED: MAGNESIUM SULF 50% (8.12 MEQ/2 ML-1 GM VIAL) IVPB ONE (09:45)
[2016-08-29] MEDS: ASPIRIN 81 MG CHEWABLE TABLETS PO SCH (10:24)
[2016-08-29] MEDS: CYANOCOBALAMIN 1,000 MCG TABLET (FP) PO SCH (10:25)
[2016-08-29] MEDS: amLODIPine BESYLATE 5 MG TABLET (FP) PO SCH (10:25)
[2016-08-29] MEDS: PANTOPRAZOLE 40 MG TABLET (FP) PO SCH (10:26)
[2016-08-29] MEDS: METOPROLOL SUCCINATE 50 MG TAB.SR.24H (FP) PO SCH (10:26)
--- NOTE | 2016-08-29 11:03 | PN ---
Progress Note (short form) - Note Progress Note: no hydronephrosis seen on MRI creatinine has returned to baseline without surgical intervention. discussed case with PMD and will defer stenting at this point pending oncology consultation and recommendations
--- NOTE | 2016-08-29 14:04 | CON.NEURO ---
Consult Consult Specialty:: NEUROLOGY Reason for Consultation:: lethargy, altered mental status, hypercalcemia - History of Present Illness History of Present Illness: 76 year old male with pmh. CLL, CABG, CAD, HTN, HLD, on ASA daily was admitted for altered mental status, lethargy for four weeks. He was found to have hypercalcemia . Mr Saucedo states that over the past 2-4 weeks he has not been feeling well. He says that his appetite has been severely decreased and he has been nauseous, diffuse abdominal pain, no vomiting. He has lost about 15 pounds secondary to this. He had a general lethargy and weakness associated with this. He was also having lightheadedness, particularly on standing these past few weeks.He was seen by Dr Love and his blood was drawn, his calcium was elevated and he was instructed to come in for admission. He received IVF and currently is feeling better. - History Source History Provided By: Patient, Family Member, Medical Record Limitations to Obtaining History: Language Barrier - Past Medical History Cardio/Vascular: Yes: CAD, HTN, Hyperlipdemia Gastrointestinal: Yes: Gastritis, GERD, Inflamatory Bowel Disease, Peptic Ulcer Disease, Other (Duodenal adenoma, Pancreatic cyst, S/P Infectious colitis on ) Renal/: Yes: Renal Inusuff, BPH - Past Surgical History Past Surgical History: Yes: Appendectomy, CABG, Cholecystectomy Additional Surgical History: cataract surgery - Alcohol/Substance Use Hx Alcohol Use: No History of Substance Use: reports: None - Smoking History Smoking history: Never smoked Have you smoked in the past 12 months: No Aproximately how many cigarettes per day: 0 - Social History ADL: Independent History of Recent Travel: No Home Medications - Allergies Allergies/Adverse Reactions: Allergies Allergy/AdvReac Type Severity Reaction Status Date / Time No Known Drug Allergies Allergy Verified 08/26/16 19:33 - Home Medications Home Medications: Ambulatory Orders Amlodipine Besylate [Norvasc -] 10 mg PO DAILY 05/07/13 Aspirin [ASA -] 81 mg PO DAILY 05/07/13 Quinapril HCl [Accupril -] 40 mg PO DAILY 05/07/13 Pravastatin Sodium [Pravachol -] 20 mg PO HS 05/10/13 Silodosin [Rapaflo] 8 mg PO HS 05/10/13 Cholecalciferol (Vitamin D3) [Vitamin D -] 400 unit PO DAILY 09/28/15 Cyanocobalamin (Vitamin B-12) [Vitamin B12] 2,500 mcg PO DAILY 09/28/15 Metoprolol Succinate [Toprol Xl] 50 mg PO DAILY 09/28/15 Family Disease History - Family Disease History Family Disease History: Heart Disease: Father Physical Exam-Neuro Vital Signs: Vital Signs Temperature 98.9 F 08/29/16 12:58 Pulse Rate 69 08/29/16 12:58 Respiratory Rate 20 08/29/16 12:58 Blood Pressure 123/65 08/29/16 12:58 O2 Sat by Pulse Oximetry (%) 98 08/29/16 09:00 Labs: CBC, BMP 08/29/16 07:20 08/29/16 07:20 Assessment/Plan 76 year old male with pmh. CAD, HTN, HLD , CABG, CLL, H. Pylori gastritis, pancreatic cyst was admitted for altered mental status, lethargy for two weeks. He was found to have hypercalcemia . Impression: altered mental status due to hypercalcemia, hypomagnesemia. metabolic encephalopathy. Renal insufficiency. Plan: - correct electrolytes, calcium, magnesium, albumin - iv.fluids - renal insufficiency management per medical team. - continues ASA daily, statin. - DVT prophylaxis. Lovenox . - check PTH, amylase, protein electrophoresis with immunofixation. - malignancy work up. Thank you for this consult.
--- NOTE | 2016-08-29 14:57 | PN ---
Teaching Attending Note Name of Resident: Sher Sanchez (Nephrology) ATTENDING PHYSICIAN STATEMENT I saw and evaluated the patient. I reviewed the resident's note and discussed the case with the resident. I agree with the resident's findings and plan as documented. Current Medications Generic Name Dose Route Start Last Admin Trade Name Freq PRN Reason Stop Dose Admin Acetaminophen 650 mg 08/26/16 21:21 Tylenol - PO Q4H PRN FEVER OR PAIN Amlodipine Besylate 5 mg 08/28/16 16:00 08/29/16 10:25 Norvasc - PO 5 mg DAILY FREDY Administration Aspirin 81 mg 08/27/16 10:00 08/29/16 10:24 Asa - PO 81 mg DAILY FREDY Administration Atorvastatin Calcium 10 mg 08/27/16 22:00 08/28/16 22:15 Lipitor - PO 10 mg HS FREDY Administration Cyanocobalamin 2,500 mcg 08/27/16 10:00 08/29/16 10:25 Vitamin B12 - PO 2,500 mcg DAILY FREDY Administration Heparin Sodium (Porcine) 5,000 unit 08/26/16 22:00 08/29/16 05:09 Heparin - SQ Not Given TID FREDY Sodium Chloride 1,000 mls @ 150 mls/hr 08/27/16 13:30 08/29/16 01:39 Normal Saline - IV 150 mls/hr ASDIR FREDY Administration Meclizine HCl 25 mg 08/27/16 15:35 Antivert - PO Q6H PRN VERTIGO Metoprolol Succinate 50 mg 08/27/16 10:00 08/29/16 10:26 Toprol Xl - PO 50 mg DAILY FREDY Administration Pantoprazole Sodium 40 mg 08/27/16 10:00 08/29/16 10:26 Protonix - PO 40 mg DAILY FREDY Administration Laboratory Tests 08/27/16 08/29/16 07:30 07:20 Magnesium 1.6 L PTH Intact Pending PTH Intact Intraop 0 m Pending cardio s1s2 reg pulm clear GI soft ext neg edema neuro awake and alert skin neg rash Impression 1. Hypercalcemia 2. CAD 3. HTN 4. Chol 5. hx leukemia 6. JEROMY 7. bilateral hydro 8. hypokalemia 9. hypomagnesemia Plan - renal function is improving - cont with fluids - keep ceron in place - replace lytes - calcium is improving - oncology is pending - will follow - pth is pending - will keep on fluids for now as he is responding Dr Hopper
--- NOTE | 2016-08-29 15:30 | PN ---
Progress Note, Physician Chief Complaint: Mr Saucedo is without complaints. No cp, sob, n/v. Vertigo resolved - Current Medication List Current Medications: Active Medications Acetaminophen (Tylenol -) 650 mg PO Q4H PRN PRN Reason: FEVER OR PAIN Amlodipine Besylate (Norvasc -) 5 mg PO DAILY [facility] Last Admin: 08/29/16 10:25 Dose: 5 mg Aspirin (Asa -) 81 mg PO DAILY [facility] Last Admin: 08/29/16 10:24 Dose: 81 mg Atorvastatin Calcium (Lipitor -) 10 mg PO HS [facility] Last Admin: 08/28/16 22:15 Dose: 10 mg Cyanocobalamin (Vitamin B12 -) 2,500 mcg PO DAILY [facility] Last Admin: 08/29/16 10:25 Dose: 2,500 mcg Heparin Sodium (Porcine) (Heparin -) 5,000 unit SQ TID [facility] Last Admin: 08/29/16 15:08 Dose: 5,000 unit Sodium Chloride (Normal Saline -) 1,000 mls @ 150 mls/hr IV ASDIR [facility] Last Admin: 08/29/16 01:39 Dose: 150 mls/hr Meclizine HCl (Antivert -) 25 mg PO Q6H PRN PRN Reason: VERTIGO Metoprolol Succinate (Toprol Xl -) 50 mg PO DAILY [facility] Last Admin: 08/29/16 10:26 Dose: 50 mg Pantoprazole Sodium (Protonix -) 40 mg PO DAILY [facility] Last Admin: 08/29/16 10:26 Dose: 40 mg - Objective Vital Signs: Vital Signs Temperature 97.8 F 08/29/16 14:46 Pulse Rate 66 08/29/16 14:46 Respiratory Rate 20 08/29/16 12:58 Blood Pressure 123/63 08/29/16 14:46 O2 Sat by Pulse Oximetry (%) 98 08/29/16 09:00 Constitutional: Yes: Well Nourished, No Distress, Calm Cardiovascular: Yes: Regular Rate and Rhythm. No: Gallop, Murmur, Rub Respiratory: Yes: Regular, CTA Bilaterally. No: Rales, Rhonchi, Wheezes Gastrointestinal: Yes: Normal Bowel Sounds, Soft. No: Distention, Tenderness Extremities: Yes: WNL Edema: No Labs: CBC, BMP 08/29/16 07:20 08/29/16 07:20 Problem List - Problems (1) Hypercalcemia Code(s): E83.52 - HYPERCALCEMIA (2) Abdominal pain Code(s): R10.9 - UNSPECIFIED ABDOMINAL PAIN (3) JEROMY (acute kidney injury) Code(s): N17.9 - ACUTE KIDNEY FAILURE, UNSPECIFIED (4) CAD (coronary artery disease) Code(s): I25.10 - ATHSCL HEART DISEASE OF [place] CORONARY ARTERY W/O ANG PCTRS (5) HTN (hypertension) Code(s): I10 - ESSENTIAL (PRIMARY) HYPERTENSION (6) HLD (hyperlipidemia) Code(s): E78.5 - HYPERLIPIDEMIA, UNSPECIFIED Assessment/Plan (1) Hypercalcemia Assessment/Plan: -oncology consulted and will see -nephrology following -continues to improve with hydration -ionized calcium and intact pth pending Code(s): E83.52 - HYPERCALCEMIA (2) Abdominal pain Assessment/Plan: -MRCP read showing lymphadenopathy -resolved Code(s): R10.9 - UNSPECIFIED ABDOMINAL PAIN (3) JEROMY (acute kidney injury) Assessment/Plan: -improving with hydration -no need for stents per urology Code(s): N17.9 - ACUTE KIDNEY FAILURE, UNSPECIFIED (4) CAD (coronary artery disease) Assessment/Plan: -stable -continue aspirin and toprol xl -continue statin Code(s): I25.10 - ATHSCL HEART DISEASE OF [place] CORONARY ARTERY W/O ANG PCTRS (5) HTN (hypertension) Assessment/Plan: -continue toprol and amlodipine Code(s): I10 - ESSENTIAL (PRIMARY) HYPERTENSION (6) HLD (hyperlipidemia) Assessment/Plan: -continue statin Code(s): E78.5 - HYPERLIPIDEMIA, UNSPECIFIED
[2016-08-29] MEDS ORDERED: PIPERACILLIN/TAZOB 2.25 GM/50 ML PRE-DOCKED BAG IVPB ONE (17:30)
[2016-08-29] MEDS ORDERED: ACETAMINOPHEN 325 MG TABLET (FP) PO PRN (17:40)
[2016-08-29] MEDS: ACETAMINOPHEN 325 MG TABLET (FP) PO PRN (17:42)
[2016-08-29] MEDS ORDERED: LEVOFLOXACIN 500 MG IVPB 100 ML IVPB ONE (19:30)
--- NOTE | 2016-08-29 20:27 | CONSULT ---
Consult Consult Specialty:: onc Reason for Consultation:: elev Ca++, h/o NHL - History of Present Illness Chief Complaint: pt ref per PMD 08/29 inc Ca++ History of Present Illness: [address] Mcleod and last OV 06/12. Dx w P Vera and underwent phlebotomies in past, but has not required any recently. Also has been dx'd w SLL based on CLL profile found in a LUE skin lesion and a bladder lesion. PB flow c/w mature B-cell NHL and he does not mount lymphocytosis to meet dx of CLL. Imaging has evidenced some LA and SM. He has not required tx for this. Dtr notes some AMS over past few wks and labs at PMD's office showed a new hyperCa++ and RI. This has improved w IVF. MRI here is noteworthy for "extensive " RP LA. Pt notes that he had n sweats approx 5m ago which dissipated. His dtr reports a new? skin lesion L dorsal hand and smaller one developing R hand. He has c/o dizziness w several episodes of seeing images inverted while in hosp. He is gen quite fxn'l Earlier today he had temp spike and abx now on board (reacted to PCN w hives, now disappeared) - History Source History Provided By: Patient, Family Member, Medical Record - Past Medical History Cardio/Vascular: Yes: CAD, HTN, Hyperlipdemia Gastrointestinal: Yes: Gastritis, GERD, Inflamatory Bowel Disease, Peptic Ulcer Disease, Other (Duodenal adenoma, Pancreatic cyst, S/P Infectious colitis on ) Renal/: Yes: Renal Inusuff, BPH - Past Surgical History Past Surgical History: Yes: Appendectomy, CABG, Cholecystectomy Additional Surgical History: cataract surgery - Alcohol/Substance Use Hx Alcohol Use: No History of Substance Use: reports: None - Smoking History Smoking history: Never smoked Have you smoked in the past 12 months: No Aproximately how many cigarettes per day: 0 - Social History ADL: Independent History of Recent Travel: No Home Medications - Allergies Allergies/Adverse Reactions: Allergies Allergy/AdvReac Type Severity Reaction Status Date / Time piperacillin sodium AdvReac Intermediate Itching Verified 08/29/16 19:36 [From Zosyn] tazobactam sodium AdvReac Intermediate Itching Verified 08/29/16 19:36 [From Zosyn] - Home Medications Home Medications: Ambulatory Orders Amlodipine Besylate [Norvasc -] 10 mg PO DAILY 05/07/13 Aspirin [ASA -] 81 mg PO DAILY 05/07/13 Quinapril HCl [Accupril -] 40 mg PO DAILY 05/07/13 Pravastatin Sodium [Pravachol -] 20 mg PO HS 05/10/13 Silodosin [Rapaflo] 8 mg PO HS 05/10/13 Cholecalciferol (Vitamin D3) [Vitamin D -] 400 unit PO DAILY 09/28/15 Cyanocobalamin (Vitamin B-12) [Vitamin B12] 2,500 mcg PO DAILY 09/28/15 Metoprolol Succinate [Toprol Xl] 50 mg PO DAILY 09/28/15 Family Disease History - Family Disease History Family Disease History: Heart Disease: Father Review of Systems - Review of Systems Neurological: reports: Dizziness Hematology/Lymphatic: reports: No Symptoms Physical Exam Vital Signs: Vital Signs Temperature 98.9 F 08/29/16 18:44 Pulse Rate 72 08/29/16 18:44 Respiratory Rate 20 08/29/16 18:44 Blood Pressure 130/67 08/29/16 18:44 O2 Sat by Pulse Oximetry (%) 98 08/29/16 09:00 Constitutional: Yes: Calm Eyes: Yes: Conjunctiva Clear HENT: Yes: WNL Neck: Yes: WNL, Other (no palp neck LA) Cardiovascular: Yes: Regular Rate and Rhythm Respiratory: Yes: CTA Bilaterally Gastrointestinal: Yes: Normal Bowel Sounds, Soft, Other (mild R ing LA) Musculoskeletal: Yes: Other (small mobile R ax LA) Edema: No Integumentary: Yes: Other (scaley/erythematous lump dorsal L hand, small scaley lesion R dorsal hand) Labs: CBC, BMP 08/29/16 07:20 08/29/16 07:20 Assessment/Plan elev Ca++ likely from NHL. Unclear if current MRI is signif changed from CT . If the RP LA is new/increased, would bx once stable to assess for transformation to more aggressive lymphoma. Ca++ improved w hydration and would cont as needed. Pamidronate or steroids can be used if further tx required (would tend to hold steroids tho' pre-bx since it can treat lymphoma and bisphos would have to be dosed per renal fxn) Fever - infxs w/u in progress and abx started. Related to NHL? P Vera - h/h not elevated; no h/o thromboses Derm- would obtain eval of the hand lesions Foll'ing w you
[2016-08-29] MEDS ORDERED: PIPERACILLIN/TAZOB 2.25 GM/50 ML PRE-DOCKED BAG IVPB SCH (21:00)
[2016-08-29] MEDS: ATORVASTATIN CA 10 MG TABLET (FP) PO SCH (21:05)
[2016-08-30 00:07] LABS: CALCIUM 13.1 mg/dL (8.6-10.2)
[2016-08-30 00:07] LABS: CALCIUM 13.8 mg/dL (8.6-10.2)
[2016-08-30] MEDS: SODIUM CHLORIDE 1,000 ML IV SCH ×3 (01:24→13:42)
[2016-08-30] MEDS: HEPARIN NA (PORCINE) 5,000 UNITS/ML 1ML VIAL SQ SCH ×3 (06:44→21:56)
[2016-08-30 08:19] LABS: ALBUMIN 2.7 g/dl (3.4-5.0); CALCIUM 10.3 mg/dL (8.5-10.1); MAGNESIUM 1.5 mg/dL (1.8-2.4)
[2016-08-30 08:21] LABS: BILIRUBIN,TOTAL 0.6 mg/dL (0.2-1.0); CREATININE 1.5 mg/dL (0.7-1.3); TOT PROT 5.4 g/dl (6.4-8.2)
[2016-08-30] MEDS: CYANOCOBALAMIN 1,000 MCG TABLET (FP) PO SCH (10:02)
[2016-08-30] MEDS: ASPIRIN 81 MG CHEWABLE TABLETS PO SCH (10:03)
[2016-08-30] MEDS: METOPROLOL SUCCINATE 50 MG TAB.SR.24H (FP) PO SCH (10:03)
[2016-08-30] MEDS: PANTOPRAZOLE 40 MG TABLET (FP) PO SCH (10:03)
[2016-08-30] MEDS: amLODIPine BESYLATE 5 MG TABLET (FP) PO SCH (10:03)
[2016-08-30] MEDS ORDERED: MAGNESIUM SULF 50% (8.12 MEQ/2 ML-1 GM VIAL) IVPB ONE (11:20)
--- NOTE | 2016-08-30 11:56 | CONSULT ---
Consultation: REQUESTING PROVIDER: CONSULT REQUEST: We have been asked to medically evaluate this patient for ( hypercalcemia ). HISTORY OF PRESENT ILLNESS: patient fells better, denies pain abdomen, REVIEW OF SYSTEMS: CONSTITUTIONAL: improved generalized weakness, loss of appetite, loss of weight Absent: fever , chills, HEENT: Absent: rhinorrhea, nasal congestion, throat pain, throat swelling, CARDIOVASCULAR: Absent: chest pain, syncope, palpitations, lightheadedness, peripheral edema RESPIRATORY: Absent: cough, shortness of breath, GASTROINTESTINAL: Absent: abdominal distension, vomiting, diarrhea, constipation GENITOURINARY: Absent: dysuria, frequency, urgency, hesitancy, hematuria, PHYSICAL EXAMINATION Vital Signs - 24 hr 08/29/16 08/29/16 08/29/16 12:58 14:46 17:15 Temperature 98.9 F 97.8 F 102.6 F H Pulse Rate 69 66 Respiratory 20 Rate Blood Pressure 123/65 123/63 O2 Sat by Pulse Oximetry (%) 08/29/16 08/29/16 08/29/16 18:44 21:00 21:02 Temperature 98.9 F 98.1 F Pulse Rate 72 57 L Respiratory 20 18 Rate Blood Pressure 130/67 117/64 O2 Sat by Pulse 98 Oximetry (%) 08/30/16 08/30/16 02:00 05:30 Temperature 98.2 F 98.2 F Pulse Rate 56 L 68 Respiratory 20 20 Rate Blood Pressure 122/70 145/75 O2 Sat by Pulse Oximetry (%) GENERAL: Awake, alert, and fully oriented, in no acute distress. HEAD: Normal with no signs of trauma. EYES: Pupils equal, round and reactive to light, EARS, NOSE, THROAT: Ears normal, nares patent, oropharynx clear without exudates. Moist mucous membranes. NECK: Normal range of motion, left supraclavicular lymphadenopathy, LUNGS: Breath sounds equal, clear to auscultation bilaterally. No wheezes, and no crackles. No accessory muscle use. HEART: s1s2 normal ABDOMEN: Soft, nontender, not distended, normoactive bowel sounds, no guarding, no rebound, MUSCULOSKELETAL: Normal range of motion at all joints. No bony deformities or tenderness. No CVA tenderness. UPPER EXTREMITIES: 2+ pulses, warm, well-perfused. No cyanosis. No clubbing. LOWER EXTREMITIES: 2+ pulses, warm, well-perfused. No calf tenderness. No peripheral edema. PSYCHIATRIC: Cooperative. Good eye contact. SKIN: Warm, dry, Laboratory Results - last 24 hr 08/27/16 08/27/16 08/30/16 00:00 07:30 06:00 Sodium 144 Potassium 3.1 L Chloride 107 Carbon Dioxide 27 Anion Gap 10 BUN 21 H Creatinine 1.5 H Creat Clearance w eGFR 45.26 Random Glucose 86 Calcium 13.8 H* 13.1 H* 10.3 H Phosphorus 2.0 L Magnesium 1.5 L Total Bilirubin 0.6 AST 14 L ALT 13 Alkaline Phosphatase 52 D Total Protein 5.4 L Albumin 2.7 L D PTH Intact 7 L 7 L PTH Intact Intraop 0 m Active Medications Generic Name Dose Route Start Last Admin Trade Name Freq PRN Reason Stop Dose Admin Acetaminophen 650 mg 08/26/16 21:21 08/29/16 17:42 Tylenol - PO 650 mg Q4H PRN Administration FEVER OR PAIN Amlodipine Besylate 5 mg 08/28/16 16:00 08/30/16 10:03 Norvasc - PO 5 mg DAILY FREDY Administration Aspirin 81 mg 08/27/16 10:00 08/30/16 10:03 Asa - PO 81 mg DAILY FREDY Administration Atorvastatin Calcium 10 mg 08/27/16 22:00 08/29/16 21:05 Lipitor - PO 10 mg HS FREDY Administration Cyanocobalamin 2,500 mcg 08/27/16 10:00 08/30/16 10:02 Vitamin B12 - PO 2,500 mcg DAILY FREDY Administration Heparin Sodium (Porcine) 5,000 unit 08/26/16 22:00 08/30/16 06:44 Heparin - SQ 5,000 unit TID FREDY Administration Sodium Chloride 1,000 mls @ 150 mls/hr 08/27/16 13:30 08/30/16 10:10 Normal Saline - IV 150 mls/hr ASDIR FREDY Administration Meclizine HCl 25 mg 08/27/16 15:35 Antivert - PO Q6H PRN VERTIGO Metoprolol Succinate 50 mg 08/27/16 10:00 08/30/16 10:03 Toprol Xl - PO 50 mg DAILY FREDY Administration Pantoprazole Sodium 40 mg 08/27/16 10:00 08/30/16 10:03 Protonix - PO 40 mg DAILY FREDY Administration Potassium Chloride 40 meq 08/30/16 12:00 08/30/16 11:18 Kcl Oral Solution - PO 08/30/16 12:01 40 meq ONCE ONE Administration ASSESSMENT/PLAN: impression Hypercalcemia JEROMY CAD HTN HLD b/l hydronephrosis hypomagnesemia and hyokalemia H/O small lymphocytic lymphoma/CLL Plan Continue with IV fluid, Ca decreased to 10.3 PTH 7 creatnine decreased to 1.5 replace K and magnesium repeat labs in morning keep ceron in place Avoid nephrotoxic drugs, hold lisinopril Dispo: We will continue to follow the patient. Thank you for this consultative opportunity. Visit type - Emergency Visit Emergency Visit: Yes ED Registration Date: 08/26/16 Care time: The patient presented to the Emergency Department on the above date and was hospitalized for further evaluation of their emergent condition. - New Patient This patient is new to me today: No - Critical Care Critical Care patient: No
[2016-08-30] MEDS ORDERED: POTASSIUM CHLORIDE 40 MEQ/30 ML UNIT DOSE CUP PO ONE (12:00)
--- NOTE | 2016-08-30 16:32 | PN ---
Progress Note, Physician Chief Complaint: Mr Saucedo is without complaints. No cp, sob, n/v. Vertigo resolved. Daughter says patient looks like he is feeling better. Fever noted last night. - Current Medication List Current Medications: Active Medications Acetaminophen (Tylenol -) 650 mg PO Q4H PRN PRN Reason: FEVER OR PAIN Last Admin: 08/29/16 17:42 Dose: 650 mg Amlodipine Besylate (Norvasc -) 5 mg PO DAILY [facility] Last Admin: 08/30/16 10:03 Dose: 5 mg Aspirin (Asa -) 81 mg PO DAILY [facility] Last Admin: 08/30/16 10:03 Dose: 81 mg Atorvastatin Calcium (Lipitor -) 10 mg PO HS [facility] Last Admin: 08/29/16 21:05 Dose: 10 mg Cyanocobalamin (Vitamin B12 -) 2,500 mcg PO DAILY [facility] Last Admin: 08/30/16 10:02 Dose: 2,500 mcg Heparin Sodium (Porcine) (Heparin -) 5,000 unit SQ TID [facility] Last Admin: 08/30/16 15:02 Dose: 5,000 unit Sodium Chloride (Normal Saline -) 1,000 mls @ 150 mls/hr IV ASDIR [facility] Last Admin: 08/30/16 13:42 Dose: Not Given Meclizine HCl (Antivert -) 25 mg PO Q6H PRN PRN Reason: VERTIGO Metoprolol Succinate (Toprol Xl -) 50 mg PO DAILY [facility] Last Admin: 08/30/16 10:03 Dose: 50 mg Pantoprazole Sodium (Protonix -) 40 mg PO DAILY [facility] Last Admin: 08/30/16 10:03 Dose: 40 mg - Objective Vital Signs: Vital Signs Temperature 98.1 F 08/30/16 14:21 Pulse Rate 65 08/30/16 14:21 Respiratory Rate 20 08/30/16 08:00 Blood Pressure 131/72 08/30/16 14:21 O2 Sat by Pulse Oximetry (%) 98 08/30/16 08:00 Constitutional: Yes: Well Nourished, No Distress, Calm Cardiovascular: Yes: Regular Rate and Rhythm. No: Gallop, Murmur, Rub Respiratory: Yes: Regular, CTA Bilaterally. No: Rales, Rhonchi, Wheezes Gastrointestinal: Yes: Normal Bowel Sounds, Soft. No: Distention, Tenderness Extremities: Yes: WNL Edema: No Labs: CBC, BMP 08/29/16 07:20 08/30/16 06:00 Problem List - Problems (1) Hypercalcemia Code(s): E83.52 - HYPERCALCEMIA (2) Abdominal pain Code(s): R10.9 - UNSPECIFIED ABDOMINAL PAIN (3) JEROMY (acute kidney injury) Code(s): N17.9 - ACUTE KIDNEY FAILURE, UNSPECIFIED (4) CAD (coronary artery disease) Code(s): I25.10 - ATHSCL HEART DISEASE OF [place] CORONARY ARTERY W/O ANG PCTRS (5) HTN (hypertension) Code(s): I10 - ESSENTIAL (PRIMARY) HYPERTENSION (6) HLD (hyperlipidemia) Code(s): E78.5 - HYPERLIPIDEMIA, UNSPECIFIED Assessment/Plan (1) Hypercalcemia Assessment/Plan: -oncology note reviewed -evaluating for biopsy -continue hydration, calcium improving -case d/w nephrology Code(s): E83.52 - HYPERCALCEMIA (2) Abdominal pain Assessment/Plan: -resolved Code(s): R10.9 - UNSPECIFIED ABDOMINAL PAIN (3) JEROMY (acute kidney injury) Assessment/Plan: -continues to improve with hydration -urology evaluated, no need for stents currently Code(s): N17.9 - ACUTE KIDNEY FAILURE, UNSPECIFIED (4) CAD (coronary artery disease) Assessment/Plan: -stable -continue aspirin and toprol xl -continue statin Code(s): I25.10 - ATHSCL HEART DISEASE OF [place] CORONARY ARTERY W/O ANG PCTRS (5) HTN (hypertension) Assessment/Plan: -continue toprol and amlodipine Code(s): I10 - ESSENTIAL (PRIMARY) HYPERTENSION (6) HLD (hyperlipidemia) Assessment/Plan: -continue statin Code(s): E78.5 - HYPERLIPIDEMIA, UNSPECIFIED
--- NOTE | 2016-08-30 17:41 | PN ---
Teaching Attending Note Name of Resident: Sher Sanchez (Nephrology) ATTENDING PHYSICIAN STATEMENT I saw and evaluated the patient. I reviewed the resident's note and discussed the case with the resident. I agree with the resident's findings and plan as documented. Current Medications Generic Name Dose Route Start Last Admin Trade Name Freq PRN Reason Stop Dose Admin Acetaminophen 650 mg 08/26/16 21:21 08/29/16 17:42 Tylenol - PO 650 mg Q4H PRN Administration FEVER OR PAIN Amlodipine Besylate 5 mg 08/28/16 16:00 08/30/16 10:03 Norvasc - PO 5 mg DAILY FREDY Administration Aspirin 81 mg 08/27/16 10:00 08/30/16 10:03 Asa - PO 81 mg DAILY FREDY Administration Atorvastatin Calcium 10 mg 08/27/16 22:00 08/29/16 21:05 Lipitor - PO 10 mg HS FREDY Administration Cyanocobalamin 2,500 mcg 08/27/16 10:00 08/30/16 10:02 Vitamin B12 - PO 2,500 mcg DAILY FREDY Administration Heparin Sodium (Porcine) 5,000 unit 08/26/16 22:00 08/30/16 15:02 Heparin - SQ 5,000 unit TID FREDY Administration Sodium Chloride 1,000 mls @ 150 mls/hr 08/27/16 13:30 08/30/16 13:42 Normal Saline - IV Not Given ASDIR FREDY Meclizine HCl 25 mg 08/27/16 15:35 Antivert - PO Q6H PRN VERTIGO Metoprolol Succinate 50 mg 08/27/16 10:00 08/30/16 10:03 Toprol Xl - PO 50 mg DAILY FREDY Administration Pantoprazole Sodium 40 mg 08/27/16 10:00 08/30/16 10:03 Protonix - PO 40 mg DAILY FREDY Administration cardio s1s2 reg pulm clear GI soft ext neg edema neuro awake and alert skin neg rash Impression 1. Hypercalcemia 2. CAD 3. HTN 4. Chol 5. hx leukemia 6. JEROMY 7. bilateral hydro 8. hypokalemia 9. hypomagnesemia Plan - renal function continues to improve - calcium is improving - cont with fluids - oncology input appreciated, biopsy to be done - replace lytes - PTH is low which was expected - will follow - will keep on fluids for now as he is responding Dr Hopper
[2016-08-30] MEDS ORDERED: POTASSIUM CHLORIDE TABS 20 MEQ TABLET.ER (FP) PO ONE (20:00)
[2016-08-30] MEDS: ACETAMINOPHEN 325 MG TABLET (FP) PO PRN (20:11)
[2016-08-30] MEDS ORDERED: LEVOFLOXACIN 500 MG IVPB 100 ML IVPB ONE (20:30)
[2016-08-30] MEDS: ATORVASTATIN CA 10 MG TABLET (FP) PO SCH (21:56)
[2016-08-31] MEDS: SODIUM CHLORIDE 1,000 ML IV SCH ×3 (03:24→22:21)
[2016-08-31 05:37] LABS: BASOPHIL 0.4 % (0-2.0); EOSINOPHIL 2.7 % (0-4.5); MCH 29.3 pg (25.7-33.7); MCHC 34.1 g/dl (32.0-35.9); MEAN PLT VOLUME 7.4 fl (7.5-11.1); PLATELET COUNT 153 K/MM3 (134-434); RDW 14.3 % (11.9-15.9); WHITE BLOOD COUNT 5.9 K/mm3 (4.0-10.0)
[2016-08-31] MEDS: HEPARIN NA (PORCINE) 5,000 UNITS/ML 1ML VIAL SQ SCH ×3 (05:56→22:22)
[2016-08-31 06:24] LABS: ALBUMIN 2.5 g/dl (3.4-5.0); BILIRUBIN,TOTAL 0.4 mg/dL (0.2-1.0); CALCIUM 10.5 mg/dL (8.5-10.1); CREATININE 1.5 mg/dL (0.7-1.3); MAGNESIUM 1.5 mg/dL (1.8-2.4); TOT PROT 5.2 g/dl (6.4-8.2)
[2016-08-31] MEDS: PANTOPRAZOLE 40 MG TABLET (FP) PO SCH (10:02)
[2016-08-31] MEDS: METOPROLOL SUCCINATE 50 MG TAB.SR.24H (FP) PO SCH (10:02)
[2016-08-31] MEDS: ASPIRIN 81 MG CHEWABLE TABLETS PO SCH (10:02)
[2016-08-31] MEDS: amLODIPine BESYLATE 5 MG TABLET (FP) PO SCH (10:02)
[2016-08-31] MEDS: CYANOCOBALAMIN 1,000 MCG TABLET (FP) PO SCH (10:03)
--- NOTE | 2016-08-31 13:23 | PN ---
GI Progress Note Subjective: GI NOte: Resting comfortably. No GI complaints. Tolerating solids. I informed Nikko and his daughter that his latest MRI no longer reveals any pancreatic cysts. Dr Stern's note is appreciated. Nikko is anticipating a lymph node biopsy. - Objective Vital Signs: Vital Signs Temperature 97.7 F 08/31/16 09:00 Pulse Rate 76 08/31/16 09:00 Respiratory Rate 20 08/31/16 09:00 Blood Pressure 147/81 08/31/16 09:00 O2 Sat by Pulse Oximetry (%) 98 08/30/16 22:00 CBC,CMP WBC 5.9 K/mm3 (4.0-10.0) 08/31/16 05:25 RBC 3.61 M/mm3 (4.00-5.60) L 08/31/16 05:25 Hgb 10.6 GM/dL (11.7-16.9) L 08/31/16 05:25 Hct 31.0 % (35.4-49) L 08/31/16 05:25 MCV 86.0 fl (80-96) 08/31/16 05:25 MCHC 34.1 g/dl (32.0-35.9) 08/31/16 05:25 RDW 14.3 % (11.9-15.9) 08/31/16 05:25 Plt Count 153 K/MM3 (134-434) 08/31/16 05:25 MPV 7.4 fl (7.5-11.1) L 08/31/16 05:25 Neutrophils % 55.0 % (42.8-82.8) 08/31/16 05:25 Lymphocytes % 33.0 % (8-40) 08/31/16 05:25 Monocytes % 8.9 % (3.8-10.2) 08/31/16 05:25 Eosinophils % 2.7 % (0-4.5) 08/31/16 05:25 Basophils % 0.4 % (0-2.0) 08/31/16 05:25 Sodium 145 mmol/L (136-145) 08/31/16 05:25 Potassium 3.2 mmol/L (3.5-5.1) L 08/31/16 05:25 Chloride 107 mmol/L (98-107) 08/31/16 05:25 Carbon Dioxide 27 mmol/L (21-32) 08/31/16 05:25 Anion Gap 11 (8-16) 08/31/16 05:25 BUN 17 mg/dL (7-18) 08/31/16 05:25 Creatinine 1.5 mg/dL (0.7-1.3) H 08/31/16 05:25 Creat Clearance w eGFR 45.26 (>60) 08/31/16 05:25 Random Glucose 133 mg/dL (74-106) H D 08/31/16 05:25 Calcium 10.5 mg/dL (8.5-10.1) H 08/31/16 05:25 Phosphorus 2.0 mg/dL (2.5-4.9) L 08/30/16 06:00 Magnesium 1.5 mg/dL (1.8-2.4) L 08/31/16 05:25 Total Bilirubin 0.4 mg/dL (0.2-1.0) D 08/31/16 05:25 AST 15 U/L (15-37) 08/31/16 05:25 ALT 13 U/L (12-78) 08/31/16 05:25 Alkaline Phosphatase 51 U/L (45-117) 08/31/16 05:25 Total Protein 5.2 g/dl (6.4-8.2) L 08/31/16 05:25 Albumin 2.5 g/dl (3.4-5.0) L 08/31/16 05:25 TSH 2.27 uIU/ml (0.358-3.74) 08/26/16 20:15 PTH Intact 7 pg/mL (15-65) L 08/27/16 07:30 PTH Intact Intraop 0 m (.) 08/27/16 07:30 Constitutional: Calm ...Auscultate: Yes: Normoactive Bowel Sounds ...Palpate: Yes: Soft, Other (nontender) Labs: CBC, BMP 08/31/16 05:25 08/31/16 05:25 Assessment/Plan No active GI problems. 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 Please recall us as needed.
--- NOTE | 2016-08-31 14:22 | PN ---
Progress Note (short form) - Note Progress Note: Had temp of 102.7 last night again. Urine culture negative. Prelim BC negative. Chest x ray - nil acute. Received one dose of levaquin last night. No temp since morning. Denies chest pain, shortness of breath. - Current Medication List Current Medications: Active Medications Acetaminophen (Tylenol -) 650 mg PO Q4H PRN PRN Reason: FEVER OR PAIN Last Admin: 08/29/16 17:42 Dose: 650 mg Amlodipine Besylate (Norvasc -) 5 mg PO DAILY [facility] Last Admin: 08/30/16 10:03 Dose: 5 mg Aspirin (Asa -) 81 mg PO DAILY [facility] Last Admin: 08/30/16 10:03 Dose: 81 mg Atorvastatin Calcium (Lipitor -) 10 mg PO HS [facility] Last Admin: 08/29/16 21:05 Dose: 10 mg Cyanocobalamin (Vitamin B12 -) 2,500 mcg PO DAILY [facility] Last Admin: 08/30/16 10:02 Dose: 2,500 mcg Heparin Sodium (Porcine) (Heparin -) 5,000 unit SQ TID [facility] Last Admin: 08/30/16 15:02 Dose: 5,000 unit Sodium Chloride (Normal Saline -) 1,000 mls @ 150 mls/hr IV ASDIR [facility] Last Admin: 08/30/16 13:42 Dose: Not Given Meclizine HCl (Antivert -) 25 mg PO Q6H PRN PRN Reason: VERTIGO Metoprolol Succinate (Toprol Xl -) 50 mg PO DAILY [facility] Last Admin: 08/30/16 10:03 Dose: 50 mg Pantoprazole Sodium (Protonix -) 40 mg PO DAILY [facility] Last Admin: 08/30/16 10:03 Dose: 40 mg - Objective Vital Signs: Vital Signs Period Temp Pulse Resp BP Sys/Bull Pulse Ox Last 24 Hr 97.7 F-102.7 F 61-76 16-20 117-147/63-82 98 Constitutional: Yes: Well Nourished, No Distress, Calm Cardiovascular: Yes: Regular Rate and Rhythm. No: Gallop, Murmur, Rub Respiratory: Yes: Regular, CTA Bilaterally. No: Rales, Rhonchi, Wheezes Gastrointestinal: Yes: Normal Bowel Sounds, Soft. No: Distention, Tenderness Extremities: Yes: WNL Edema: No Labs: CBC, BMP 08/31/16 05:25 08/31/16 05:25 Microbiology 08/29/16 17:00 Urine Culture - Final Urine - Urine Flores NO GROWTH OBTAINED 08/29/16 17:45 Blood Culture - Preliminary Blood - Peripheral Venous NO GROWTH OBTAINED AFTER 24 HOURS, INCUBATION TO CONTINUE FOR 4 DAYS. 08/29/16 17:45 Blood Culture - Preliminary Blood - Peripheral Venous NO GROWTH OBTAINED AFTER 24 HOURS, INCUBATION TO CONTINUE FOR 4 DAYS. Problem List - Problems (1) Hypercalcemia Code(s): E83.52 - HYPERCALCEMIA (2) Abdominal pain Code(s): R10.9 - UNSPECIFIED ABDOMINAL PAIN (3) JEROMY (acute kidney injury) Code(s): N17.9 - ACUTE KIDNEY FAILURE, UNSPECIFIED (4) CAD (coronary artery disease) Code(s): I25.10 - ATHSCL HEART DISEASE OF [place] CORONARY ARTERY W/O ANG PCTRS (5) HTN (hypertension) Code(s): I10 - ESSENTIAL (PRIMARY) HYPERTENSION (6) HLD (hyperlipidemia) Code(s): E78.5 - HYPERLIPIDEMIA, UNSPECIFIED Assessment/Plan (1) Hypercalcemia Assessment/Plan: -oncology note reviewed -evaluating for biopsy -continue hydration, calcium improving Code(s): E83.52 - HYPERCALCEMIA (2) Abdominal pain Assessment/Plan: -resolved Code(s): R10.9 - UNSPECIFIED ABDOMINAL PAIN (3) JEROMY (acute kidney injury) Assessment/Plan: -continues to improve with hydration -urology evaluated, no need for stents currently Code(s): N17.9 - ACUTE KIDNEY FAILURE, UNSPECIFIED (4) CAD (coronary artery disease) Assessment/Plan: -stable -continue aspirin and toprol xl -continue statin Code(s): I25.10 - ATHSCL HEART DISEASE OF [place] CORONARY ARTERY W/O ANG PCTRS (5) HTN (hypertension) Assessment/Plan: -continue toprol and amlodipine Code(s): I10 - ESSENTIAL (PRIMARY) HYPERTENSION (6) HLD (hyperlipidemia) Assessment/Plan: -continue statin Code(s): E78.5 - HYPERLIPIDEMIA, UNSPECIFIED Hypokalemia/Hypomagnesemia: Repleted.
[2016-08-31] MEDS ORDERED: MAGNESIUM SULF 50% (8.12 MEQ/2 ML-1 GM VIAL) IVPB ONE ×2 (15:00→17:54)
[2016-08-31] MEDS ORDERED: POTASSIUM CHLORIDE TABS 20 MEQ TABLET.ER (FP) PO ONE ×2 (15:30→17:54)
--- NOTE | 2016-08-31 17:52 | PN ---
Progress Note, Physician History of Present Illness: Pt seen and examined at bedside. He is awake and appears comfortable. He denies shortness of breath. He does complain of lower extremity edema. - Current Medication List Current Medications: Active Medications Acetaminophen (Tylenol -) 650 mg PO Q4H PRN PRN Reason: FEVER OR PAIN Last Admin: 08/30/16 20:11 Dose: 650 mg Amlodipine Besylate (Norvasc -) 5 mg PO DAILY [facility] Last Admin: 08/31/16 10:02 Dose: 5 mg Aspirin (Asa -) 81 mg PO DAILY [facility] Last Admin: 08/31/16 10:02 Dose: 81 mg Atorvastatin Calcium (Lipitor -) 10 mg PO HS [facility] Last Admin: 08/30/16 21:56 Dose: 10 mg Cyanocobalamin (Vitamin B12 -) 2,500 mcg PO DAILY [facility] Last Admin: 08/31/16 10:03 Dose: 2,500 mcg Heparin Sodium (Porcine) (Heparin -) 5,000 unit SQ TID [facility] Last Admin: 08/31/16 14:58 Dose: 5,000 unit Sodium Chloride (Normal Saline -) 1,000 mls @ 150 mls/hr IV ASDIR [facility] Last Admin: 08/31/16 03:24 Dose: 150 mls/hr Meclizine HCl (Antivert -) 25 mg PO Q6H PRN PRN Reason: VERTIGO Metoprolol Succinate (Toprol Xl -) 50 mg PO DAILY [facility] Last Admin: 08/31/16 10:02 Dose: 50 mg Pantoprazole Sodium (Protonix -) 40 mg PO DAILY [facility] Last Admin: 08/31/16 10:02 Dose: 40 mg - Objective Vital Signs: Vital Signs Temperature 98.7 F 08/31/16 14:00 Pulse Rate 82 08/31/16 14:00 Respiratory Rate 20 08/31/16 14:00 Blood Pressure 134/76 08/31/16 14:00 O2 Sat by Pulse Oximetry (%) 98 08/30/16 22:00 Constitutional: Yes: Calm Eyes: Yes: Conjunctiva Clear HENT: Yes: Atraumatic Neck: Yes: Supple Cardiovascular: Yes: S1, S2 Respiratory: Yes: CTA Bilaterally Gastrointestinal: Yes: Soft Genitourinary: Yes: Flores Present Musculoskeletal: Yes: WNL Edema: Yes Edema: LLE: 1+, RLE: 1+ Neurological: Yes: Oriented Psychiatric: Yes: Oriented Labs: CBC, BMP 08/31/16 05:25 08/31/16 05:25 Assessment/Plan Current Medications Generic Name Dose Route Start Last Admin Trade Name Js PRN Reason Stop Dose Admin Acetaminophen 650 mg 08/26/16 21:21 08/30/16 20:11 Tylenol - PO 650 mg Q4H PRN Administration FEVER OR PAIN Amlodipine Besylate 5 mg 08/28/16 16:00 08/31/16 10:02 Norvasc - PO 5 mg DAILY [facility] Administration Aspirin 81 mg 08/27/16 10:00 08/31/16 10:02 Asa - PO 81 mg DAILY [facility] Administration Atorvastatin Calcium 10 mg 08/27/16 22:00 08/30/16 21:56 Lipitor - PO 10 mg HS [facility] Administration Cyanocobalamin 2,500 mcg 08/27/16 10:00 08/31/16 10:03 Vitamin B12 - PO 2,500 mcg DAILY [facility] Administration Heparin Sodium (Porcine) 5,000 unit 08/26/16 22:00 08/31/16 14:58 Heparin - SQ 5,000 unit TID [facility] Administration Sodium Chloride 1,000 mls @ 150 mls/hr 08/27/16 13:30 08/31/16 03:24 Normal Saline - IV 150 mls/hr ASDIR [facility] Administration Meclizine HCl 25 mg 08/27/16 15:35 Antivert - PO Q6H PRN VERTIGO Metoprolol Succinate 50 mg 08/27/16 10:00 08/31/16 10:02 Toprol Xl - PO 50 mg DAILY [facility] Administration Pantoprazole Sodium 40 mg 08/27/16 10:00 08/31/16 10:02 Protonix - PO 40 mg DAILY [facility] Administration Laboratory Tests 08/31/16 05:25 Magnesium 1.5 L Impression 1. Hypercalcemia 2. CAD 3. HTN 4. Chol 5. hx leukemia 6. JEROMY 7. bilateral hydro 8. hypokalemia 9. hypomagnesemia Plan - will give dose of lasix today - cont with fluids - repeat labs in am - replace potassium - replace magnesium - oncology input appreciated, biopsy to be done - PTH is low which was expected - will follow Dr Hopper
[2016-08-31] MEDS ORDERED: FUROSEMIDE 40 MG/4 ML INJECTABLE VIAL IVPB ONE (17:54)
[2016-08-31] MEDS ORDERED: FUROSEMIDE 40 MG/4 ML INJECTABLE VIAL ONE (18:28)
[2016-08-31] MEDS: KCL 10 MEQ IVPB 100 ML IVPB SCH (19:47)
[2016-08-31] MEDS: ACETAMINOPHEN 325 MG TABLET (FP) PO PRN (20:03)
[2016-08-31] MEDS: MAGNESIUM OXIDE 400 MG TABLET (FP) PO SCH (22:22)
[2016-08-31] MEDS: ATORVASTATIN CA 10 MG TABLET (FP) PO SCH (22:22)
[2016-09-01] MEDS: SODIUM CHLORIDE 1,000 ML IV SCH ×3 (07:02→20:13)
[2016-09-01] MEDS: HEPARIN NA (PORCINE) 5,000 UNITS/ML 1ML VIAL SQ SCH ×3 (07:03→22:07)
[2016-09-01 08:10] LABS: ALBUMIN 2.6 g/dl (3.4-5.0); BILIRUBIN,TOTAL 0.4 mg/dL (0.2-1.0); CALCIUM 10.5 mg/dL (8.5-10.1); CREATININE 1.4 mg/dL (0.7-1.3); TOT PROT 5.5 g/dl (6.4-8.2)
[2016-09-01 08:40] LABS: BASOPHIL 0.5 % (0-2.0); EOSINOPHIL 2.9 % (0-4.5); MCH 29.1 pg (25.7-33.7); MEAN CELL VOLUME 85.8 fl (80-96); MEAN PLT VOLUME 7.5 fl (7.5-11.1); NEUTROPHILS 58.1 % (42.8-82.8); PLATELET COUNT 153 K/MM3 (134-434); RDW 14.5 % (11.9-15.9); WHITE BLOOD COUNT 6.9 K/mm3 (4.0-10.0)
[2016-09-01] MEDS ORDERED: POTASSIUM CHLORIDE TABS 20 MEQ TABLET.ER (FP) PO ONE ×2 (10:00→14:44)
[2016-09-01] MEDS: KCL 10 MEQ IVPB 100 ML IVPB SCH ×3 (10:11→15:13)
[2016-09-01] MEDS: amLODIPine BESYLATE 5 MG TABLET (FP) PO SCH (10:12)
[2016-09-01] MEDS: MAGNESIUM OXIDE 400 MG TABLET (FP) PO SCH ×2 (10:12→22:07)
[2016-09-01] MEDS: METOPROLOL SUCCINATE 50 MG TAB.SR.24H (FP) PO SCH (10:12)
[2016-09-01] MEDS: ASPIRIN 81 MG CHEWABLE TABLETS PO SCH (10:13)
[2016-09-01] MEDS: CYANOCOBALAMIN 1,000 MCG TABLET (FP) PO SCH (10:13)
[2016-09-01] MEDS: PANTOPRAZOLE 40 MG TABLET (FP) PO SCH (10:13)
--- NOTE | 2016-09-01 14:33 | PN ---
Progress Note (short form) - Note Progress Note: Had temp of 101.5 yesterday evening again. has been having temperature in the evening. Urine culture negative. Prelim BC negative. Chest x ray - nil acute. Received 2 doses of IV levaquin No temp since morning. Denies chest pain, shortness of breath. - Current Medication List Current Medications: Active Medications Acetaminophen (Tylenol -) 650 mg PO Q4H PRN PRN Reason: FEVER OR PAIN Last Admin: 08/29/16 17:42 Dose: 650 mg Amlodipine Besylate (Norvasc -) 5 mg PO DAILY [facility] Last Admin: 08/30/16 10:03 Dose: 5 mg Aspirin (Asa -) 81 mg PO DAILY [facility] Last Admin: 08/30/16 10:03 Dose: 81 mg Atorvastatin Calcium (Lipitor -) 10 mg PO HS [facility] Last Admin: 08/29/16 21:05 Dose: 10 mg Cyanocobalamin (Vitamin B12 -) 2,500 mcg PO DAILY [facility] Last Admin: 08/30/16 10:02 Dose: 2,500 mcg Heparin Sodium (Porcine) (Heparin -) 5,000 unit SQ TID [facility] Last Admin: 08/30/16 15:02 Dose: 5,000 unit Sodium Chloride (Normal Saline -) 1,000 mls @ 150 mls/hr IV ASDIR [facility] Last Admin: 08/30/16 13:42 Dose: Not Given Meclizine HCl (Antivert -) 25 mg PO Q6H PRN PRN Reason: VERTIGO Metoprolol Succinate (Toprol Xl -) 50 mg PO DAILY [facility] Last Admin: 08/30/16 10:03 Dose: 50 mg Pantoprazole Sodium (Protonix -) 40 mg PO DAILY [facility] Last Admin: 08/30/16 10:03 Dose: 40 mg - Objective Vital Signs: Vital Signs Period Temp Pulse Resp BP Sys/Bull Pulse Ox Last 24 Hr 97.9 F-101.5 F 63-82 18-20 118-144/64-82 98-98 Constitutional: Yes: Well Nourished, No Distress, Calm Cardiovascular: Yes: Regular Rate and Rhythm. No: Gallop, Murmur, Rub Respiratory: Yes: Regular, CTA Bilaterally. No: Rales, Rhonchi, Wheezes Gastrointestinal: Yes: Normal Bowel Sounds, Soft. No: Distention, Tenderness Extremities: Yes: WNL Edema: No Labs: CBC, BMP 09/01/16 06:15 09/01/16 06:15 Microbiology 08/29/16 17:45 Blood - Peripheral Venous Blood Culture - Preliminary NO GROWTH OBTAINED AFTER 48 HOURS, INCUBATION TO CONTINUE FOR 3 DAYS. 08/29/16 17:45 Blood - Peripheral Venous Blood Culture - Preliminary NO GROWTH OBTAINED AFTER 48 HOURS, INCUBATION TO CONTINUE FOR 3 DAYS. Problem List - Problems (1) Hypercalcemia Code(s): E83.52 - HYPERCALCEMIA (2) Abdominal pain Code(s): R10.9 - UNSPECIFIED ABDOMINAL PAIN (3) JEROMY (acute kidney injury) Code(s): N17.9 - ACUTE KIDNEY FAILURE, UNSPECIFIED (4) CAD (coronary artery disease) Code(s): I25.10 - ATHSCL HEART DISEASE OF [place] CORONARY ARTERY W/O ANG PCTRS (5) HTN (hypertension) Code(s): I10 - ESSENTIAL (PRIMARY) HYPERTENSION (6) HLD (hyperlipidemia) Code(s): E78.5 - HYPERLIPIDEMIA, UNSPECIFIED Assessment/Plan (1) Hypercalcemia Assessment/Plan: -oncology note reviewed -for biopsy -continue hydration, calcium improving Code(s): E83.52 - HYPERCALCEMIA (2) Abdominal pain Assessment/Plan: -resolved Code(s): R10.9 - UNSPECIFIED ABDOMINAL PAIN (3) JEROMY (acute kidney injury) Assessment/Plan: -continues to improve with hydration -urology evaluated, no need for stents currently Code(s): N17.9 - ACUTE KIDNEY FAILURE, UNSPECIFIED (4) CAD (coronary artery disease) Assessment/Plan: -stable -continue aspirin and toprol xl -continue statin Code(s): I25.10 - ATHSCL HEART DISEASE OF [place] CORONARY ARTERY W/O ANG PCTRS (5) HTN (hypertension) Assessment/Plan: -continue toprol and amlodipine Code(s): I10 - ESSENTIAL (PRIMARY) HYPERTENSION (6) HLD (hyperlipidemia) Assessment/Plan: -continue statin Code(s): E78.5 - HYPERLIPIDEMIA, UNSPECIFIED 7) Hypokalemia/Hypomagnesemia: Repleted. 8) Fever: Repeat urine and blood cultures with chest x ray. To start on IV levaquin after cultures are drawn and to be continued till results are available.
--- NOTE | 2016-09-01 14:44 | PN ---
Progress Note, Physician History of Present Illness: Pt seen and examined at bedside. He is awake and alert. He denies shortness of breath. He does complain of lower extremity edema. - Current Medication List Current Medications: Active Medications Acetaminophen (Tylenol -) 650 mg PO Q4H PRN PRN Reason: FEVER OR PAIN Last Admin: 08/31/16 20:03 Dose: 650 mg Amlodipine Besylate (Norvasc -) 5 mg PO DAILY [facility] Last Admin: 09/01/16 10:12 Dose: 5 mg Aspirin (Asa -) 81 mg PO DAILY [facility] Last Admin: 09/01/16 10:13 Dose: 81 mg Atorvastatin Calcium (Lipitor -) 10 mg PO HS [facility] Last Admin: 08/31/16 22:22 Dose: 10 mg Cyanocobalamin (Vitamin B12 -) 2,500 mcg PO DAILY [facility] Last Admin: 09/01/16 10:13 Dose: 2,500 mcg Heparin Sodium (Porcine) (Heparin -) 5,000 unit SQ TID [facility] Last Admin: 09/01/16 07:03 Dose: 5,000 unit Sodium Chloride (Normal Saline -) 1,000 mls @ 150 mls/hr IV ASDIR [facility] Last Admin: 09/01/16 07:02 Dose: 150 mls/hr Levofloxacin (Levaquin 500 Mg Premixed Ivpb -) 100 mls @ 100 mls/hr IVPB DAILY [facility] Magnesium Oxide (Mag-Ox -) 400 mg PO BID [facility] Last Admin: 09/01/16 10:12 Dose: 400 mg Meclizine HCl (Antivert -) 25 mg PO Q6H PRN PRN Reason: VERTIGO Metoprolol Succinate (Toprol Xl -) 50 mg PO DAILY [facility] Last Admin: 09/01/16 10:12 Dose: 50 mg Pantoprazole Sodium (Protonix -) 40 mg PO DAILY [facility] Last Admin: 09/01/16 10:13 Dose: 40 mg - Objective Vital Signs: Vital Signs Temperature 98.4 F 09/01/16 06:25 Pulse Rate 82 09/01/16 10:00 Respiratory Rate 18 09/01/16 10:00 Blood Pressure 133/71 09/01/16 10:00 O2 Sat by Pulse Oximetry (%) 98 09/01/16 09:00 Constitutional: Yes: Calm Eyes: Yes: Conjunctiva Clear HENT: Yes: Atraumatic Neck: Yes: Supple Cardiovascular: Yes: S1, S2 Respiratory: Yes: On Nasal O2 Gastrointestinal: Yes: Soft Genitourinary: Yes: Flores Present Musculoskeletal: Yes: WNL Edema: Yes Edema: LLE: 1+, RLE: 1+ Neurological: Yes: Oriented Psychiatric: Yes: Oriented Labs: CBC, BMP 09/01/16 06:15 09/01/16 06:15 Assessment/Plan Current Medications Generic Name Dose Route Start Last Admin Trade Name Freq PRN Reason Stop Dose Admin Acetaminophen 650 mg 08/26/16 21:21 08/31/16 20:03 Tylenol - PO 650 mg Q4H PRN Administration FEVER OR PAIN Amlodipine Besylate 5 mg 08/28/16 16:00 09/01/16 10:12 Norvasc - PO 5 mg DAILY [facility] Administration Aspirin 81 mg 08/27/16 10:00 09/01/16 10:13 Asa - PO 81 mg DAILY [facility] Administration Atorvastatin Calcium 10 mg 08/27/16 22:00 08/31/16 22:22 Lipitor - PO 10 mg HS [facility] Administration Cyanocobalamin 2,500 mcg 08/27/16 10:00 09/01/16 10:13 Vitamin B12 - PO 2,500 mcg DAILY [facility] Administration Heparin Sodium (Porcine) 5,000 unit 08/26/16 22:00 09/01/16 07:03 Heparin - SQ 5,000 unit TID [facility] Administration Sodium Chloride 1,000 mls @ 150 mls/hr 08/27/16 13:30 09/01/16 07:02 Normal Saline - IV 150 mls/hr ASDIR [facility] Administration Levofloxacin 100 mls @ 100 mls/hr 09/01/16 15:00 Levaquin 500 Mg Premixed Ivpb - IVPB DAILY [facility] Magnesium Oxide 400 mg 08/31/16 22:00 09/01/16 10:12 Mag-Ox - PO 400 mg BID [facility] Administration Meclizine HCl 25 mg 08/27/16 15:35 Antivert - PO Q6H PRN VERTIGO Metoprolol Succinate 50 mg 08/27/16 10:00 09/01/16 10:12 Toprol Xl - PO 50 mg DAILY [facility] Administration Pantoprazole Sodium 40 mg 08/27/16 10:00 09/01/16 10:13 Protonix - PO 40 mg DAILY [facility] Administration Impression 1. Hypercalcemia 2. CAD 3. HTN 4. Chol 5. hx leukemia 6. JEROMY 7. bilateral hydro 8. hypokalemia 9. hypomagnesemia Plan - will replace potassium - will repeat bloodwork, please call with results - will need oncology follow up - pending biopsy - will continue with fluids - monitor calcium levels - PTH is low which was expected - will follow Dr Hopper
[2016-09-01] MEDS: LEVOFLOXACIN 500 MG IVPB 100 ML IVPB SCH (14:58)
[2016-09-01 16:57] LABS: CALCIUM 12.3 mg/dL (8.5-10.1); CREATININE 1.5 mg/dL (0.7-1.3); MAGNESIUM 1.7 mg/dL (1.8-2.4)
--- NOTE | 2016-09-01 17:16 | PN ---
Progress Note (short form) - Note Progress Note: Laboratory Tests 09/01/16 16:20 Sodium 140 Potassium 3.7 D Chloride 102 Carbon Dioxide 31 Anion Gap 7 L BUN 21 H D Creatinine 1.5 H Calcium 12.3 H
[2016-09-01] MEDS ORDERED: FUROSEMIDE 40 MG/4 ML INJECTABLE VIAL IVPB ONE (17:21)
[2016-09-01] MEDS ORDERED: LIDOCAINE HCL 2% JELLY (5 ML/TUBE) TP PRN (19:03)
[2016-09-01] MEDS ORDERED: CALCITONIN - SALMON SYNTHETIC 400 UNIT/2 ML VIAL SQ ONE (21:00)
[2016-09-01] MEDS: ATORVASTATIN CA 10 MG TABLET (FP) PO SCH (22:07)
[2016-09-02] MEDS: SODIUM CHLORIDE 1,000 ML IV SCH ×3 (02:29→13:30)
[2016-09-02] MEDS: HEPARIN NA (PORCINE) 5,000 UNITS/ML 1ML VIAL SQ SCH ×3 (06:19→21:58)
[2016-09-02 07:15] LABS: BASOPHIL 0.3 % (0-2.0); EOSINOPHIL 1.3 % (0-4.5); MCH 29.2 pg (25.7-33.7); MCHC 34.1 g/dl (32.0-35.9); MEAN CELL VOLUME 85.7 fl (80-96); MEAN PLT VOLUME 7.8 fl (7.5-11.1); NEUTROPHILS 59.8 % (42.8-82.8); PLATELET COUNT 171 K/MM3 (134-434); RDW 14.4 % (11.9-15.9); WHITE BLOOD COUNT 7.7 K/mm3 (4.0-10.0)
[2016-09-02 07:33] LABS: ALBUMIN 2.7 g/dl (3.4-5.0); CALCIUM 10.5 mg/dL (8.5-10.1); MAGNESIUM 1.4 mg/dL (1.8-2.4)
[2016-09-02 07:35] LABS: BILIRUBIN,TOTAL 0.5 mg/dL (0.2-1.0); CREATININE 1.5 mg/dL (0.7-1.3); TOT PROT 5.8 g/dl (6.4-8.2)
[2016-09-02] MEDS: METOPROLOL SUCCINATE 50 MG TAB.SR.24H (FP) PO SCH (09:47)
[2016-09-02] MEDS: ASPIRIN 81 MG CHEWABLE TABLETS PO SCH (09:47)
[2016-09-02] MEDS: amLODIPine BESYLATE 5 MG TABLET (FP) PO SCH (09:47)
[2016-09-02] MEDS: CYANOCOBALAMIN 1,000 MCG TABLET (FP) PO SCH (09:47)
[2016-09-02] MEDS: PANTOPRAZOLE 40 MG TABLET (FP) PO SCH (09:47)
[2016-09-02] MEDS: LEVOFLOXACIN 500 MG IVPB 100 ML IVPB SCH (09:47)
[2016-09-02] MEDS: MAGNESIUM OXIDE 400 MG TABLET (FP) PO SCH ×2 (09:47→21:58)
--- NOTE | 2016-09-02 09:58 | CONSULT ---
Addendum entered and electronically signed by Sher Sanchez RES 09/02/16 11:28 : give lasix 20mg po once give kcl 20meq po once fluid decreased to 150 Original Note: Consultation: REQUESTING PROVIDER: CONSULT REQUEST: We have been asked to medically evaluate this patient for ( hypercalcemia). HISTORY OF PRESENT ILLNESS: Patient feels better, denies chest pain, sob. States swelling in legs has decreased REVIEW OF SYSTEMS: CONSTITUTIONAL: improved generalized weakness, loss of appetite, loss of weight Absent: fever , chills, HEENT: Absent: rhinorrhea, nasal congestion, throat pain, throat swelling, CARDIOVASCULAR: Absent: chest pain, syncope, palpitations, lightheadedness, peripheral edema RESPIRATORY: Absent: cough, shortness of breath, GASTROINTESTINAL: Absent: abdominal distension, vomiting, diarrhea, constipation GENITOURINARY: Absent: dysuria, frequency, urgency, hesitancy, hematuria, PHYSICAL EXAMINATION Vital Signs - 24 hr 09/01/16 09/01/16 09/01/16 10:00 14:00 14:33 Temperature 98.6 F 98.5 F Pulse Rate 82 80 82 Respiratory 18 18 18 Rate Blood Pressure 133/71 O2 Sat by Pulse Oximetry (%) 09/01/16 09/01/16 09/01/16 18:00 21:00 22:00 Temperature 98.1 F 98.8 F Pulse Rate 71 76 Respiratory 18 18 Rate Blood Pressure 130/77 139/78 O2 Sat by Pulse 98 Oximetry (%) 09/02/16 09/02/16 02:00 06:00 Temperature 99.0 F 98.0 F Pulse Rate 76 Respiratory 18 Rate Blood Pressure 137/77 O2 Sat by Pulse Oximetry (%) GENERAL: Awake, alert, and fully oriented, in no acute distress. HEAD: Normal with no signs of trauma. EYES: Pupils equal, round and reactive to light, EARS, NOSE, THROAT: Ears normal, nares patent, oropharynx clear without exudates. Moist mucous membranes. NECK: Normal range of motion, left supraclavicular lymphadenopathy, LUNGS: Breath sounds equal, clear to auscultation bilaterally. No wheezes, and no crackles. No accessory muscle use. HEART: s1s2 normal ABDOMEN: Soft, nontender, not distended, normoactive bowel sounds, no guarding, no rebound, MUSCULOSKELETAL: Normal range of motion at all joints. No bony deformities or tenderness. No CVA tenderness. UPPER EXTREMITIES: 2+ pulses, warm, well-perfused. No cyanosis. No clubbing. LOWER EXTREMITIES: 2+ pulses, warm, well-perfused. No calf tenderness. No peripheral edema. PSYCHIATRIC: Cooperative. Good eye contact. SKIN: Warm, dry, Laboratory Results - last 24 hr 09/01/16 09/02/16 09/02/16 16:20 06:30 06:30 WBC 7.7 RBC 3.84 L Hgb 11.2 L Hct 32.9 L MCV 85.7 MCHC 34.1 RDW 14.4 Plt Count 171 MPV 7.8 Neutrophils % 59.8 Lymphocytes % 30.1 Monocytes % 8.5 Eosinophils % 1.3 Basophils % 0.3 Sodium 140 141 Potassium 3.7 D 3.6 Chloride 102 99 Carbon Dioxide 31 31 Anion Gap 7 L 11 BUN 21 H D 22 H Creatinine 1.5 H 1.5 H Creat Clearance w eGFR 45.26 Random Glucose 131 H 139 H Calcium 12.3 H 10.5 H Magnesium 1.7 L 1.4 L Total Bilirubin 0.5 D AST 14 L ALT 19 Alkaline Phosphatase 55 Total Protein 5.8 L Albumin 2.7 L Active Medications Generic Name Dose Route Start Last Admin Trade Name Freq PRN Reason Stop Dose Admin Acetaminophen 650 mg 08/26/16 21:21 08/31/16 20:03 Tylenol - PO 650 mg Q4H PRN Administration FEVER OR PAIN Amlodipine Besylate 5 mg 08/28/16 16:00 09/02/16 09:47 Norvasc - PO 5 mg DAILY [facility] Administration Aspirin 81 mg 08/27/16 10:00 09/02/16 09:47 Asa - PO 81 mg DAILY [facility] Administration Atorvastatin Calcium 10 mg 08/27/16 22:00 09/01/16 22:07 Lipitor - PO 10 mg HS [facility] Administration Cyanocobalamin 2,500 mcg 08/27/16 10:00 09/02/16 09:47 Vitamin B12 - PO 2,500 mcg DAILY [facility] Administration Heparin Sodium (Porcine) 5,000 unit 08/26/16 22:00 09/02/16 06:19 Heparin - SQ 5,000 unit TID [facility] Administration Levofloxacin 100 mls @ 100 mls/hr 09/01/16 15:00 09/02/16 09:47 Levaquin 500 Mg Premixed Ivpb - IVPB 100 mls/hr DAILY [facility] Administration Sodium Chloride 1,000 mls @ 175 mls/hr 09/01/16 17:21 09/02/16 09:47 Normal Saline - IV 175 mls/hr ASDIR [facility] Administration Lidocaine HCl 1 applic 09/01/16 19:03 09/01/16 22:09 Xylocaine 2% Jelly TP 1 applic BID PRN Administration PAIN Magnesium Oxide 400 mg 08/31/16 22:00 09/02/16 09:47 Mag-Ox - PO 400 mg BID [facility] Administration Meclizine HCl 25 mg 08/27/16 15:35 Antivert - PO Q6H PRN VERTIGO Metoprolol Succinate 50 mg 08/27/16 10:00 09/02/16 09:47 Toprol Xl - PO 50 mg DAILY [facility] Administration Pantoprazole Sodium 40 mg 08/27/16 10:00 09/02/16 09:47 Protonix - PO 40 mg DAILY [facility] Administration ASSESSMENT/PLAN: impression Hypercalcemia JEROMY CAD HTN HLD b/l hydronephrosis hypomagnesemia and hyokalemia H/O small lymphocytic lymphoma/CLL Plan Continue with IV fluid, Ca decreased to 10.5 creatnine stable at to 1.5 potassium 3.6 mg still low 1.4, will replace Mg repeat labs in morning Avoid nephrotoxic drugs, hold lisinopril will give calcitonin today will need oncology follow up Dispo: We will continue to follow the patient. Thank you for this consultative opportunity. Visit type - Emergency Visit Emergency Visit: Yes ED Registration Date: 08/26/16 Care time: The patient presented to the Emergency Department on the above date and was hospitalized for further evaluation of their emergent condition. - New Patient This patient is new to me today: No - Critical Care Critical Care patient: No
[2016-09-02] MEDS ORDERED: MAGNESIUM SULF 50% (8.12 MEQ/2 ML-1 GM VIAL) IVPB ONE (10:30)
[2016-09-02] MEDS ORDERED: POTASSIUM CHLORIDE TABS 20 MEQ TABLET.ER (FP) PO ONE (11:27)
[2016-09-02] MEDS ORDERED: FUROSEMIDE 20 MG TABLET (FP) PO ONE (11:27)
--- NOTE | 2016-09-02 11:27 | PN ---
Teaching Attending Note Name of Resident: Sher Sanchez (Nephrology) ATTENDING PHYSICIAN STATEMENT I saw and evaluated the patient. I reviewed the resident's note and discussed the case with the resident. I agree with the resident's findings and plan as documented. Pt seen and examined at bedside. He denies shortness of breath. Current Medications Generic Name Dose Route Start Last Admin Trade Name Freq PRN Reason Stop Dose Admin Acetaminophen 650 mg 08/26/16 21:21 08/31/16 20:03 Tylenol - PO 650 mg Q4H PRN Administration FEVER OR PAIN Amlodipine Besylate 5 mg 08/28/16 16:00 09/02/16 09:47 Norvasc - PO 5 mg DAILY FREDY Administration Aspirin 81 mg 08/27/16 10:00 09/02/16 09:47 Asa - PO 81 mg DAILY FREDY Administration Atorvastatin Calcium 10 mg 08/27/16 22:00 09/01/16 22:07 Lipitor - PO 10 mg HS FREDY Administration Cyanocobalamin 2,500 mcg 08/27/16 10:00 09/02/16 09:47 Vitamin B12 - PO 2,500 mcg DAILY FREDY Administration Heparin Sodium (Porcine) 5,000 unit 08/26/16 22:00 09/02/16 06:19 Heparin - SQ 5,000 unit TID FREDY Administration Levofloxacin 100 mls @ 100 mls/hr 09/01/16 15:00 09/02/16 09:47 Levaquin 500 Mg Premixed Ivpb - IVPB 100 mls/hr DAILY FREDY Administration Sodium Chloride 1,000 mls @ 175 mls/hr 09/01/16 17:21 09/02/16 09:47 Normal Saline - IV 175 mls/hr ASDIR FREDY Administration Lidocaine HCl 1 applic 09/01/16 19:03 09/01/16 22:09 Xylocaine 2% Jelly TP 1 applic BID PRN Administration PAIN Magnesium Oxide 400 mg 08/31/16 22:00 09/02/16 09:47 Mag-Ox - PO 400 mg BID FREDY Administration Meclizine HCl 25 mg 08/27/16 15:35 Antivert - PO Q6H PRN VERTIGO Metoprolol Succinate 50 mg 08/27/16 10:00 09/02/16 09:47 Toprol Xl - PO 50 mg DAILY FREDY Administration Pantoprazole Sodium 40 mg 08/27/16 10:00 09/02/16 09:47 Protonix - PO 40 mg DAILY FREDY Administration Last Vital Signs Temp Pulse Resp BP Pulse Ox 98.0 F 76 18 137/77 98 09/02/16 06:00 09/02/16 06:00 09/02/16 06:00 09/02/16 06:00 09/01/16 21:00 cardio s1s2 reg pulm clear GI soft ext trace edema skin neg rash Laboratory Tests 09/02/16 06:30 Magnesium 1.4 L Laboratory Tests 09/02/16 06:30 Creatinine 1.5 H Impression 1. Hypercalcemia 2. CAD 3. HTN 4. Chol 5. hx leukemia 6. JEROMY 7. bilateral hydro 8. hypokalemia 9. hypomagnesemia Plan - called and discussed plan with Oncology, they agree with pamidronate. They will evaluate pt today and contact IR for biopsy - will give a dose of calcitonin as well - cont with fluids - will give small dose of lasix - monitor lytes daily Dr Hopper
[2016-09-02] MEDS ORDERED: CALCITONIN - SALMON SYNTHETIC 400 UNIT/2 ML VIAL SQ ONE (11:45)
--- NOTE | 2016-09-02 11:59 | PN ---
Progress Note, Physician Chief Complaint: Mr Saucedo says he is feeling well. No cp, sob, n/v. Continues to have fevers at night. - Current Medication List Current Medications: Active Medications Acetaminophen (Tylenol -) 650 mg PO Q4H PRN PRN Reason: FEVER OR PAIN Last Admin: 08/31/16 20:03 Dose: 650 mg Amlodipine Besylate (Norvasc -) 5 mg PO DAILY [facility] Last Admin: 09/02/16 09:47 Dose: 5 mg Aspirin (Asa -) 81 mg PO DAILY [facility] Last Admin: 09/02/16 09:47 Dose: 81 mg Atorvastatin Calcium (Lipitor -) 10 mg PO HS [facility] Last Admin: 09/01/16 22:07 Dose: 10 mg Cyanocobalamin (Vitamin B12 -) 2,500 mcg PO DAILY [facility] Last Admin: 09/02/16 09:47 Dose: 2,500 mcg Heparin Sodium (Porcine) (Heparin -) 5,000 unit SQ TID [facility] Last Admin: 09/02/16 06:19 Dose: 5,000 unit Levofloxacin (Levaquin 500 Mg Premixed Ivpb -) 100 mls @ 100 mls/hr IVPB DAILY [facility] Last Admin: 09/02/16 09:47 Dose: 100 mls/hr Sodium Chloride (Normal Saline -) 1,000 mls @ 150 mls/hr IV ASDIR [facility] Pamidronate Disodium 60 mg/ (Sodium Chloride) 500 mls @ 83.333 mls/hr IVPB ONCE ONE Stop: 09/02/16 18:29 Lidocaine HCl (Xylocaine 2% Jelly) 1 applic TP BID PRN PRN Reason: PAIN Last Admin: 09/01/16 22:09 Dose: 1 applic Magnesium Oxide (Mag-Ox -) 400 mg PO BID [facility] Last Admin: 09/02/16 09:47 Dose: 400 mg Meclizine HCl (Antivert -) 25 mg PO Q6H PRN PRN Reason: VERTIGO Metoprolol Succinate (Toprol Xl -) 50 mg PO DAILY [facility] Last Admin: 09/02/16 09:47 Dose: 50 mg Pantoprazole Sodium (Protonix -) 40 mg PO DAILY [facility] Last Admin: 09/02/16 09:47 Dose: 40 mg - Objective Vital Signs: Vital Signs Temperature 98.0 F 09/02/16 06:00 Pulse Rate 76 09/02/16 06:00 Respiratory Rate 18 09/02/16 06:00 Blood Pressure 137/77 09/02/16 06:00 O2 Sat by Pulse Oximetry (%) 98 09/01/16 21:00 Constitutional: Yes: Well Nourished, No Distress, Calm Cardiovascular: Yes: Regular Rate and Rhythm. No: Gallop, Murmur, Rub Respiratory: Yes: Regular, CTA Bilaterally. No: Rales, Rhonchi, Wheezes Gastrointestinal: Yes: Normal Bowel Sounds, Soft. 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 -continue to monitor, possible stopping of IVF soon Code(s): E83.52 - HYPERCALCEMIA (2) Abdominal pain Assessment/Plan: -resolved Code(s): R10.9 - UNSPECIFIED ABDOMINAL PAIN (3) CKD Assessment/Plan: -at baseline -continue to monitor Code(s): N17.9 - ACUTE KIDNEY FAILURE, UNSPECIFIED (4) CAD (coronary artery disease) Assessment/Plan: -stable -continue aspirin and toprol xl -continue statin Code(s): I25.10 - ATHSCL HEART DISEASE OF [place] CORONARY ARTERY W/O ANG PCTRS (5) HTN (hypertension) Assessment/Plan: -continue toprol and amlodipine Code(s): I10 - ESSENTIAL (PRIMARY) HYPERTENSION (6) HLD (hyperlipidemia) Assessment/Plan: -continue statin Code(s): E78.5 - HYPERLIPIDEMIA, UNSPECIFIED (7) CLL -case d/w oncology today -concerning this is conversion -oncology to speak with IR about biopsy -will await recommendations (8) Fevers -concerning this is secondary to malignancy -also with ceron in place, could be secondary to this as well -remove ceron -continue levaquin currently but monitor
[2016-09-02] MEDS ORDERED: PAMIDRONATE DISODIUM 60 MG in SODIUM CHLORIDE 500 ML IVPB ONE (12:30)
--- NOTE | 2016-09-02 15:14 | CONSULT ---
Consult - text type - Consultation Consultation Note: Consulted to see patient for growth on dorsum of left hand.on exam he has a 2cm nodule with central crater. Patient has a history of skin cancer . he had skin cancer on his left bicep area. 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 Patient requires MOHS surgery. will see patient as outpatient to biopsy and refer patient to surgeon.
--- NOTE | 2016-09-02 15:59 | PN ---
Progress Note (short form) - Note Progress Note: awake, alert, sitting in chair having lunch He reports feeling better and has no complaint re-spiked 2/4 w levoquin on board, no fever since BC ->NGTD dosed w pamidronate yest PE NAD lungs - CTA CVS-reg S1S2 Abd -soft, NT ext-very tr bipedal swelling Imp - hypercalcemia, fever, h/o SLL Awaiting input from Dr. Abad re: scan and potential for bx RP LN. Concern is for transformation to more aggressive lymphoma.
[2016-09-02] MEDS: ATORVASTATIN CA 10 MG TABLET (FP) PO SCH (21:58)
[2016-09-03] MEDS: HEPARIN NA (PORCINE) 5,000 UNITS/ML 1ML VIAL SQ SCH ×3 (06:28→21:23)
[2016-09-03 07:39] LABS: BASOPHIL 0.3 % (0-2.0); EOSINOPHIL 1.6 % (0-4.5); MCH 29.7 pg (25.7-33.7); MCHC 34.7 g/dl (32.0-35.9); MEAN CELL VOLUME 85.4 fl (80-96); MEAN PLT VOLUME 7.4 fl (7.5-11.1); NEUTROPHILS 67.1 % (42.8-82.8); PLATELET COUNT 189 K/MM3 (134-434); RDW 14.6 % (11.9-15.9); WHITE BLOOD COUNT 8.9 K/mm3 (4.0-10.0)
[2016-09-03 08:02] LABS: ALBUMIN 2.7 g/dl (3.4-5.0); CALCIUM 10.2 mg/dL (8.5-10.1); MAGNESIUM 1.5 mg/dL (1.8-2.4)
[2016-09-03 08:05] LABS: BILIRUBIN,TOTAL 0.4 mg/dL (0.2-1.0); CREATININE 1.3 mg/dL (0.7-1.3); PHOSPHOROUS 2.2 mg/dL (2.5-4.9); TOT PROT 5.6 g/dl (6.4-8.2)
[2016-09-03] MEDS: ASPIRIN 81 MG CHEWABLE TABLETS PO SCH (09:02)
[2016-09-03] MEDS: PANTOPRAZOLE 40 MG TABLET (FP) PO SCH (09:02)
[2016-09-03] MEDS: CYANOCOBALAMIN 1,000 MCG TABLET (FP) PO SCH (09:02)
[2016-09-03] MEDS: MAGNESIUM OXIDE 400 MG TABLET (FP) PO SCH ×2 (09:02→21:24)
[2016-09-03] MEDS: amLODIPine BESYLATE 5 MG TABLET (FP) PO SCH (09:02)
[2016-09-03] MEDS: LEVOFLOXACIN 500 MG IVPB 100 ML IVPB SCH (09:03)
[2016-09-03] MEDS: METOPROLOL SUCCINATE 50 MG TAB.SR.24H (FP) PO SCH (09:03)
--- NOTE | 2016-09-03 10:15 | CONSULT ---
Consultation: REQUESTING PROVIDER: CONSULT REQUEST: We have been asked to medically evaluate this patient for ( hypercalcemia ). HISTORY OF PRESENT ILLNESS: Feels better, denies sob, swelling in b/l feet still present, complains of burning micturation REVIEW OF SYSTEMS: CONSTITUTIONAL: improved generalized weakness, loss of appetite, loss of weight Absent: fever , chills, HEENT: Absent: rhinorrhea, nasal congestion, throat pain, throat swelling, CARDIOVASCULAR: Absent: chest pain, syncope, palpitations, lightheadedness, peripheral edema RESPIRATORY: Absent: cough, shortness of breath, GASTROINTESTINAL: Absent: abdominal distension, vomiting, diarrhea, constipation GENITOURINARY: Absent: dysuria, frequency, urgency, hesitancy, hematuria, complains of burning micturation PHYSICAL EXAMINATION Vital Signs - 24 hr 09/02/16 09/02/16 09/02/16 14:00 18:00 21:00 Temperature 97.9 F 97.7 F Pulse Rate 76 71 Respiratory 20 18 18 Rate Blood Pressure 136/83 O2 Sat by Pulse 98 Oximetry (%) 09/03/16 06:00 Temperature 98.4 F Pulse Rate 78 Respiratory 20 Rate Blood Pressure 134/73 O2 Sat by Pulse Oximetry (%) GENERAL: Awake, alert, and fully oriented, in no acute distress. HEAD: Normal with no signs of trauma. EYES: Pupils equal, round and reactive to light, EARS, NOSE, THROAT: Ears normal, nares patent, oropharynx clear without exudates. Moist mucous membranes. NECK: Normal range of motion, left supraclavicular lymphadenopathy, LUNGS: Breath sounds equal, clear to auscultation bilaterally. No wheezes, and no crackles. No accessory muscle use. HEART: s1s2 normal ABDOMEN: Soft, nontender, not distended, normoactive bowel sounds, no guarding, no rebound, MUSCULOSKELETAL: Normal range of motion at all joints. No bony deformities or tenderness. No CVA tenderness. UPPER EXTREMITIES: 2+ pulses, warm, well-perfused. No cyanosis. No clubbing. LOWER EXTREMITIES: 2+ pulses, warm, well-perfused. No calf tenderness. No peripheral edema. PSYCHIATRIC: Cooperative. Good eye contact. SKIN: Warm, dry, Laboratory Results - last 24 hr 09/03/16 09/03/16 05:35 05:35 WBC 8.9 RBC 3.80 L Hgb 11.3 L Hct 32.5 L MCV 85.4 MCHC 34.7 RDW 14.6 Plt Count 189 MPV 7.4 L Neutrophils % 67.1 Lymphocytes % 24.3 Monocytes % 6.7 Eosinophils % 1.6 Basophils % 0.3 Sodium 141 Potassium 3.4 L Chloride 102 Carbon Dioxide 30 Anion Gap 9 BUN 20 H Creatinine 1.3 Creat Clearance w eGFR 53.39 Random Glucose 138 H Calcium 10.2 H Phosphorus 2.2 L Magnesium 1.5 L Total Bilirubin 0.4 AST 19 D ALT 28 D Alkaline Phosphatase 55 Total Protein 5.6 L Albumin 2.7 L Active Medications Generic Name Dose Route Start Last Admin Trade Name Freq PRN Reason Stop Dose Admin Acetaminophen 650 mg 08/26/16 21:21 08/31/16 20:03 Tylenol - PO 650 mg Q4H PRN Administration FEVER OR PAIN Amlodipine Besylate 5 mg 08/28/16 16:00 09/03/16 09:02 Norvasc - PO 5 mg DAILY FREDY Administration Aspirin 81 mg 08/27/16 10:00 09/03/16 09:02 Asa - PO 81 mg DAILY FREDY Administration Atorvastatin Calcium 10 mg 08/27/16 22:00 09/02/16 21:58 Lipitor - PO 10 mg HS FREDY Administration Cyanocobalamin 2,500 mcg 08/27/16 10:00 09/03/16 09:02 Vitamin B12 - PO 2,500 mcg DAILY FREDY Administration Heparin Sodium (Porcine) 5,000 unit 08/26/16 22:00 09/03/16 06:28 Heparin - SQ 5,000 unit TID FREDY Administration Levofloxacin 100 mls @ 100 mls/hr 09/01/16 15:00 09/03/16 09:03 Levaquin 500 Mg Premixed Ivpb - IVPB 100 mls/hr DAILY FREDY Administration Sodium Chloride 1,000 mls @ 150 mls/hr 09/02/16 11:28 09/02/16 13:30 Normal Saline - IV 150 mls/hr ASDIR FREDY Administration Lidocaine HCl 1 applic 09/01/16 19:03 09/01/16 22:09 Xylocaine 2% Jelly TP 1 applic BID PRN Administration PAIN Magnesium Oxide 400 mg 08/31/16 22:00 09/03/16 09:02 Mag-Ox - PO 400 mg BID FREDY Administration Meclizine HCl 25 mg 08/27/16 15:35 Antivert - PO Q6H PRN VERTIGO Metoprolol Succinate 50 mg 08/27/16 10:00 09/03/16 09:03 Toprol Xl - PO 50 mg DAILY FREDY Administration Pantoprazole Sodium 40 mg 08/27/16 10:00 09/03/16 09:02 Protonix - PO 40 mg DAILY FREDY Administration ASSESSMENT/PLAN: impression Hypercalcemia JEROMY CAD HTN HLD b/l hydronephrosis hypomagnesemia and hyokalemia H/O small lymphocytic lymphoma/CLL Plan Continue with IV fluid 150ml/hr Ca decreased to 10.2. will give calcitonin today creatnine decreased to 1.3 potassium 3.4, mg still low 1.5, on magnesium oxide 400mg BID repeat labs in morning Avoid nephrotoxic drugs, hold lisinopril will hold pantoprazole, can cause hypomagnesemia give iv lasix 20mg iv stat oral kcl 80meq iv magnesium 2gm once Dispo: We will continue to follow the patient. Thank you for this consultative opportunity. Visit type - Emergency Visit Emergency Visit: Yes ED Registration Date: 08/26/16 Care time: The patient presented to the Emergency Department on the above date and was hospitalized for further evaluation of their emergent condition. - New Patient This patient is new to me today: No - Critical Care Critical Care patient: No
[2016-09-03] MEDS ORDERED: POTASSIUM CHLORIDE 40 MEQ/30 ML UNIT DOSE CUP PO ONE (10:23)
[2016-09-03] MEDS: SODIUM CHLORIDE 1,000 ML IV SCH ×4 (11:55→23:17)
[2016-09-03] MEDS ORDERED: CALCITONIN - SALMON SYNTHETIC 400 UNIT/2 ML VIAL SQ ONE (12:20)
[2016-09-03] MEDS ORDERED: POTASSIUM CHLORIDE 40 MEQ/30 ML UNIT DOSE CUP ONE (12:50)
[2016-09-03 13:53] LABS: URINE APPEARANCE CLEAR; URINE BILIRUBIN NEGATIVE (NEGATIVE); URINE BLOOD 1+ (NEGATIVE); URINE COLOR STRAW; URINE GLUCOSE (UA) 1+ (NEGATIVE); URINE KETONE NEGATIVE (NEGATIVE); URINE LEUK ESTERASE NEGATIVE (NEGATIVE); URINE NITRITE NEGATIVE (NEGATIVE); URINE PROTEIN NEGATIVE (NEGATIVE); URINE UROBILINOGEN NEGATIVE E.U./dl (0.2-1.0)
[2016-09-03 13:57] LABS: URINE RBC 1 /hpf (0-3); URINE WBC <1 /hpf (3-5)
[2016-09-03] MEDS ORDERED: FUROSEMIDE 40 MG/4 ML INJECTABLE VIAL IVPUSH ONE (14:15)
[2016-09-03] MEDS ORDERED: POTASSIUM CHLORIDE TABS 20 MEQ TABLET.ER (FP) PO ONE (14:15)
[2016-09-03] MEDS ORDERED: MAGNESIUM SULF 50% (8.12 MEQ/2 ML-1 GM VIAL) IVPB ONE (14:16)
--- NOTE | 2016-09-03 14:18 | PN ---
Teaching Attending Note Name of Resident: Sher Sanchez (Nephrology) ATTENDING PHYSICIAN STATEMENT I saw and evaluated the patient. I reviewed the resident's note and discussed the case with the resident. I agree with the resident's findings and plan as documented. Laboratory Tests 09/03/16 05:35 Sodium 141 Potassium 3.4 L Creatinine 1.3 Creat Clearance w eGFR 53.39 Magnesium 1.5 L Current Medications Generic Name Dose Route Start Last Admin Trade Name Freq PRN Reason Stop Dose Admin Acetaminophen 650 mg 08/26/16 21:21 08/31/16 20:03 Tylenol - PO 650 mg Q4H PRN Administration FEVER OR PAIN Amlodipine Besylate 5 mg 08/28/16 16:00 09/03/16 09:02 Norvasc - PO 5 mg DAILY FREDY Administration Aspirin 81 mg 08/27/16 10:00 09/03/16 09:02 Asa - PO 81 mg DAILY FREDY Administration Atorvastatin Calcium 10 mg 08/27/16 22:00 09/02/16 21:58 Lipitor - PO 10 mg HS FREDY Administration Cyanocobalamin 2,500 mcg 08/27/16 10:00 09/03/16 09:02 Vitamin B12 - PO 2,500 mcg DAILY FREDY Administration Furosemide 20 mg 09/03/16 14:15 Lasix Injection - IVPUSH 09/03/16 14:16 ONCE ONE Heparin Sodium (Porcine) 5,000 unit 08/26/16 22:00 09/03/16 13:00 Heparin - SQ 5,000 unit TID FREDY Administration Levofloxacin 100 mls @ 100 mls/hr 09/01/16 15:00 09/03/16 09:03 Levaquin 500 Mg Premixed Ivpb - IVPB 100 mls/hr DAILY FREDY Administration Sodium Chloride 1,000 mls @ 150 mls/hr 09/02/16 11:28 09/03/16 14:02 Normal Saline - IV 150 mls/hr ASDIR FREDY Administration Lidocaine HCl 1 applic 09/01/16 19:03 09/01/16 22:09 Xylocaine 2% Jelly TP 1 applic BID PRN Administration PAIN Magnesium Oxide 400 mg 08/31/16 22:00 09/03/16 09:02 Mag-Ox - PO 400 mg BID FREDY Administration Meclizine HCl 25 mg 08/27/16 15:35 Antivert - PO Q6H PRN VERTIGO Metoprolol Succinate 50 mg 08/27/16 10:00 09/03/16 09:03 Toprol Xl - PO 50 mg DAILY FREDY Administration Potassium Chloride 40 meq 09/03/16 14:15 K-Dur - PO 09/03/16 14:16 ONCE ONE cardio s1s2 reg pulm clear GI soft ext trace edema skin neg rash Impression 1. Hypercalcemia 2. CAD 3. HTN 4. Chol 5. hx leukemia 6. JEROMY 7. bilateral hydro 8. hypokalemia 9. hypomagnesemia Plan - monitro calcium - will give another dose of calcitonin - will give dose of lasix - can start to decrease fluids - repeat labs in am - oncology follow up - calcium is improving - replace mag - monitor lytes daily
[2016-09-03] MEDS ORDERED: FUROSEMIDE 40 MG/4 ML INJECTABLE VIAL ONE (16:17)
[2016-09-03] MEDS ORDERED: MAGNESIUM SULF 50% (8.12 MEQ/2 ML-1 GM VIAL) ONE (16:18)
--- NOTE | 2016-09-03 16:46 | PN ---
Progress Note, Physician Chief Complaint: Mr Saucedo says he is feeling well. No cp, sob, n/v. - Current Medication List Current Medications: Active Medications Acetaminophen (Tylenol -) 650 mg PO Q4H PRN PRN Reason: FEVER OR PAIN Last Admin: 08/31/16 20:03 Dose: 650 mg Amlodipine Besylate (Norvasc -) 5 mg PO DAILY [facility] Last Admin: 09/03/16 09:02 Dose: 5 mg Atorvastatin Calcium (Lipitor -) 10 mg PO HS [facility] Last Admin: 09/02/16 21:58 Dose: 10 mg Cyanocobalamin (Vitamin B12 -) 2,500 mcg PO DAILY [facility] Last Admin: 09/03/16 09:02 Dose: 2,500 mcg Heparin Sodium (Porcine) (Heparin -) 5,000 unit SQ TID [facility] Last Admin: 09/03/16 13:00 Dose: 5,000 unit Levofloxacin (Levaquin 500 Mg Premixed Ivpb -) 100 mls @ 100 mls/hr IVPB DAILY [facility] Last Admin: 09/03/16 09:03 Dose: 100 mls/hr Sodium Chloride (Normal Saline -) 1,000 mls @ 125 mls/hr IV ASDIR [facility] Last Admin: 09/03/16 16:24 Dose: 125 mls/hr Lidocaine HCl (Xylocaine 2% Jelly) 1 applic TP BID PRN PRN Reason: PAIN Last Admin: 09/01/16 22:09 Dose: 1 applic Magnesium Oxide (Mag-Ox -) 400 mg PO BID [facility] Last Admin: 09/03/16 09:02 Dose: 400 mg Meclizine HCl (Antivert -) 25 mg PO Q6H PRN PRN Reason: VERTIGO Metoprolol Succinate (Toprol Xl -) 50 mg PO DAILY [facility] Last Admin: 09/03/16 09:03 Dose: 50 mg - Objective Vital Signs: Vital Signs Temperature 97.4 F L 09/03/16 13:22 Pulse Rate 63 09/03/16 13:22 Respiratory Rate 17 09/03/16 13:22 Blood Pressure 144/84 09/03/16 08:00 O2 Sat by Pulse Oximetry (%) 98 09/03/16 08:00 Constitutional: Yes: Well Nourished, No Distress, Calm Cardiovascular: Yes: Regular Rate and Rhythm. No: Gallop, Murmur, Rub Respiratory: Yes: Regular, CTA Bilaterally. No: Rales, Rhonchi, Wheezes Gastrointestinal: Yes: Normal Bowel Sounds, Soft. No: Distention, Tenderness Extremities: Yes: WNL Edema: No Labs: CBC, BMP 09/03/16 05:35 09/03/16 05:35 Problem List - Problems (1) Hypercalcemia Code(s): E83.52 - HYPERCALCEMIA (2) Abdominal pain Code(s): R10.9 - UNSPECIFIED ABDOMINAL PAIN (3) CAD (coronary artery disease) Code(s): I25.10 - ATHSCL HEART DISEASE OF [place] CORONARY ARTERY W/O ANG PCTRS (4) HTN (hypertension) Code(s): I10 - ESSENTIAL (PRIMARY) HYPERTENSION (5) HLD (hyperlipidemia) Code(s): E78.5 - HYPERLIPIDEMIA, UNSPECIFIED Assessment/Plan (1) Hypercalcemia Assessment/Plan: -case d/w Dr Hopper -received pamidronate -given lasix and calcitonin today -plan to stop IVF tomorrow -monitor for stabilization of calcium Code(s): E83.52 - HYPERCALCEMIA (2) Abdominal pain Assessment/Plan: -resolved Code(s): R10.9 - UNSPECIFIED ABDOMINAL PAIN (3) CKD Assessment/Plan: -at baseline -continue to monitor Code(s): N17.9 - ACUTE KIDNEY FAILURE, UNSPECIFIED (4) CAD (coronary artery disease) Assessment/Plan: -stable -continue statin and toprol xl -hold aspirin Code(s): I25.10 - ATHSCL HEART DISEASE OF [place] CORONARY ARTERY W/O ANG PCTRS (5) HTN (hypertension) Assessment/Plan: -continue toprol and amlodipine Code(s): I10 - ESSENTIAL (PRIMARY) HYPERTENSION (6) HLD (hyperlipidemia) Assessment/Plan: -continue statin Code(s): E78.5 - HYPERLIPIDEMIA, UNSPECIFIED (7) CLL -case d/w Dr Abad today about biopsy -reviewed case and says able to biopsy -however on aspirin so have to wait 5 days -will hold aspirin, may need to perform as an outpatient (8) Fevers -concerning this is secondary to malignancy -ceron removed -will continue levaquin currently
[2016-09-03] MEDS ORDERED: ONDANSETRON 4 MG/2 ML VIAL IVPB PRN (18:52)
[2016-09-03] MEDS: ATORVASTATIN CA 10 MG TABLET (FP) PO SCH (21:24)
[2016-09-04] MEDS: HEPARIN NA (PORCINE) 5,000 UNITS/ML 1ML VIAL SQ SCH ×3 (06:19→21:08)
[2016-09-04] MEDS: SODIUM CHLORIDE 1,000 ML IV SCH (06:21)
[2016-09-04 07:38] LABS: BASOPHIL 0.4 % (0-2.0); EOSINOPHIL 2.8 % (0-4.5); MCH 28.5 pg (25.7-33.7); MCHC 33.1 g/dl (32.0-35.9); MEAN CELL VOLUME 86.3 fl (80-96); MEAN PLT VOLUME 7.2 fl (7.5-11.1); NEUTROPHILS 58.7 % (42.8-82.8); PLATELET COUNT 204 K/MM3 (134-434); RDW 14.7 % (11.9-15.9); WHITE BLOOD COUNT 9.6 K/mm3 (4.0-10.0)
[2016-09-04 08:06] LABS: CALCIUM 9.4 mg/dL (8.5-10.1); CREATININE 1.1 mg/dL (0.7-1.3); MAGNESIUM 1.7 mg/dL (1.8-2.4); PHOSPHOROUS 2.4 mg/dL (2.5-4.9)
[2016-09-04] MEDS: CYANOCOBALAMIN 1,000 MCG TABLET (FP) PO SCH (10:07)
[2016-09-04] MEDS: MAGNESIUM OXIDE 400 MG TABLET (FP) PO SCH ×2 (10:07→21:08)
[2016-09-04] MEDS: METOPROLOL SUCCINATE 50 MG TAB.SR.24H (FP) PO SCH (10:07)
[2016-09-04] MEDS: amLODIPine BESYLATE 5 MG TABLET (FP) PO SCH (10:08)
[2016-09-04] MEDS: LEVOFLOXACIN 500 MG IVPB 100 ML IVPB SCH (10:28)
[2016-09-04] MEDS ORDERED: POTASSIUM CHLORIDE TABS 20 MEQ TABLET.ER (FP) PO ONE ×2 (11:00→12:39)
--- NOTE | 2016-09-04 11:01 | CONSULT ---
Consultation: REQUESTING PROVIDER: CONSULT REQUEST: We have been asked to medically evaluate this patient for ( specify). HISTORY OF PRESENT ILLNESS: REVIEW OF SYSTEMS: CONSTITUTIONAL: improved generalized weakness, loss of appetite, loss of weight Absent: fever , chills, HEENT: Absent: rhinorrhea, nasal congestion, throat pain, throat swelling, CARDIOVASCULAR: Absent: chest pain, syncope, palpitations, lightheadedness, peripheral edema RESPIRATORY: Absent: cough, shortness of breath, GASTROINTESTINAL: Absent: abdominal distension, vomiting, diarrhea, constipation GENITOURINARY: Absent: dysuria, frequency, urgency, hesitancy, hematuria, complains of burning micturation PHYSICAL EXAMINATION Vital Signs - 24 hr 09/03/16 09/03/16 09/03/16 13:22 21:00 22:08 Temperature 97.4 F L 98.3 F Pulse Rate 63 73 Respiratory 17 20 20 Rate Blood Pressure 144/75 O2 Sat by Pulse 98 Oximetry (%) 09/04/16 05:55 Temperature 98.0 F Pulse Rate 69 Respiratory 20 Rate Blood Pressure 126/60 O2 Sat by Pulse Oximetry (%) GENERAL: Awake, alert, and fully oriented, in no acute distress. HEAD: Normal with no signs of trauma. EYES: Pupils equal, round and reactive to light, EARS, NOSE, THROAT: Ears normal, nares patent, oropharynx clear without exudates. Moist mucous membranes. NECK: Normal range of motion, left supraclavicular lymphadenopathy, LUNGS: Breath sounds equal, clear to auscultation bilaterally. No wheezes, and no crackles. No accessory muscle use. HEART: s1s2 normal ABDOMEN: Soft, nontender, not distended, normoactive bowel sounds, no guarding, no rebound, MUSCULOSKELETAL: Normal range of motion at all joints. No bony deformities or tenderness. No CVA tenderness. UPPER EXTREMITIES: 2+ pulses, warm, well-perfused. No cyanosis. No clubbing. LOWER EXTREMITIES: 2+ pulses, warm, well-perfused. No calf tenderness. No peripheral edema. PSYCHIATRIC: Cooperative. Good eye contact. SKIN: Warm, dry, Laboratory Results - last 24 hr 09/03/16 09/04/16 09/04/16 13:00 06:30 06:30 WBC 9.6 RBC 3.85 L Hgb 11.0 L Hct 33.2 L MCV 86.3 MCHC 33.1 RDW 14.7 Plt Count 204 MPV 7.2 L Neutrophils % 58.7 Lymphocytes % 30.6 D Monocytes % 7.5 Eosinophils % 2.8 Basophils % 0.4 Sodium 141 Potassium 3.3 L Chloride 102 Carbon Dioxide 30 Anion Gap 9 BUN 19 H Creatinine 1.1 Random Glucose 113 H Calcium 9.4 Phosphorus 2.4 L Magnesium 1.7 L Urine Color Straw Urine Appearance Clear Urine pH 7.0 Ur Specific [facility] 1.009 Urine Protein Negative Urine Glucose (UA) 1+ H Urine Ketones Negative Urine Blood 1+ H Urine Nitrite Negative Urine Bilirubin Negative Urine Urobilinogen Negative Ur Leukocyte Esterase Negative Urine RBC 1 Urine WBC <1 Active Medications Generic Name Dose Route Start Last Admin Trade Name Freq PRN Reason Stop Dose Admin Acetaminophen 650 mg 08/26/16 21:21 08/31/16 20:03 Tylenol - PO 650 mg Q4H PRN Administration FEVER OR PAIN Amlodipine Besylate 5 mg 08/28/16 16:00 09/04/16 10:08 Norvasc - PO 5 mg DAILY FREDY Administration Atorvastatin Calcium 10 mg 08/27/16 22:00 09/03/16 21:24 Lipitor - PO 10 mg HS FREDY Administration Cyanocobalamin 2,500 mcg 08/27/16 10:00 09/04/16 10:07 Vitamin B12 - PO 2,500 mcg DAILY FREDY Administration Heparin Sodium (Porcine) 5,000 unit 08/26/16 22:00 09/04/16 06:19 Heparin - SQ 5,000 unit TID FREDY Administration Levofloxacin 100 mls @ 100 mls/hr 09/01/16 15:00 09/04/16 10:28 Levaquin 500 Mg Premixed Ivpb - IVPB 100 mls/hr DAILY FREDY Administration Lidocaine HCl 1 applic 09/01/16 19:03 09/01/16 22:09 Xylocaine 2% Jelly TP 1 applic BID PRN Administration PAIN Magnesium Oxide 400 mg 08/31/16 22:00 09/04/16 10:07 Mag-Ox - PO 400 mg BID FREDY Administration Meclizine HCl 25 mg 08/27/16 15:35 Antivert - PO Q6H PRN VERTIGO Metoprolol Succinate 50 mg 08/27/16 10:00 09/04/16 10:07 Toprol Xl - PO 50 mg DAILY FREDY Administration Ondansetron HCl 4 mg 09/03/16 18:52 Zofran Injection IVPB Q6H PRN NAUSEA ASSESSMENT/PLAN: impression Hypercalcemia J[place]OMY CAD HTN HLD b/l hydronephrosis hypomagnesemia and hyokalemia H/O small lymphocytic lymphoma/CLL Plan Ca decreased to 9.2 creatnine decreased to 1.1 potassium 3.4, mg still low 1.7, on magnesium oxide 400mg BID repeat labs in morning Avoid nephrotoxic drugs, hold lisinopril givel kcl po 40 meq hold IV fluid Dispo: We will continue to follow the patient. Thank you for this consultative opportunity. Visit type - Emergency Visit Emergency Visit: Yes ED Registration Date: 08/26/16 Care time: The patient presented to the Emergency Department on the above date and was hospitalized for further evaluation of their emergent condition. - New Patient This patient is new to me today: No - Critical Care Critical Care patient: No
--- NOTE | 2016-09-04 12:38 | PN ---
Teaching Attending Note Name of Resident: Sher Sanchez (Nephrology) ATTENDING PHYSICIAN STATEMENT I saw and evaluated the patient. I reviewed the resident's note and discussed the case with the resident. I agree with the resident's findings and plan as documented. Current Medications Generic Name Dose Route Start Last Admin Trade Name Freq PRN Reason Stop Dose Admin Acetaminophen 650 mg 08/26/16 21:21 08/31/16 20:03 Tylenol - PO 650 mg Q4H PRN Administration FEVER OR PAIN Amlodipine Besylate 5 mg 08/28/16 16:00 09/04/16 10:08 Norvasc - PO 5 mg DAILY FREDY Administration Atorvastatin Calcium 10 mg 08/27/16 22:00 09/03/16 21:24 Lipitor - PO 10 mg HS FREDY Administration Cyanocobalamin 2,500 mcg 08/27/16 10:00 09/04/16 10:07 Vitamin B12 - PO 2,500 mcg DAILY FREDY Administration Heparin Sodium (Porcine) 5,000 unit 08/26/16 22:00 09/04/16 06:19 Heparin - SQ 5,000 unit TID RFEDY Administration Levofloxacin 100 mls @ 100 mls/hr 09/01/16 15:00 09/04/16 10:28 Levaquin 500 Mg Premixed Ivpb - IVPB 100 mls/hr DAILY FREDY Administration Lidocaine HCl 1 applic 09/01/16 19:03 09/01/16 22:09 Xylocaine 2% Jelly TP 1 applic BID PRN Administration PAIN Magnesium Oxide 400 mg 08/31/16 22:00 09/04/16 10:07 Mag-Ox - PO 400 mg BID FREDY Administration Meclizine HCl 25 mg 08/27/16 15:35 Antivert - PO Q6H PRN VERTIGO Metoprolol Succinate 50 mg 08/27/16 10:00 09/04/16 10:07 Toprol Xl - PO 50 mg DAILY FREDY Administration Ondansetron HCl 4 mg 09/03/16 18:52 Zofran Injection IVPB Q6H PRN NAUSEA Last Vital Signs Temp Pulse Resp BP Pulse Ox 98.1 F 75 20 129/70 97 09/04/16 09:00 09/04/16 09:00 09/04/16 09:00 09/04/16 09:00 09/04/16 09:00 Laboratory Tests 09/04/16 06:30 Potassium 3.3 L Magnesium 1.7 L Laboratory Tests 08/27/16 08/27/16 00:00 07:30 PTH Intact 7 L 7 L cardio s1s2 reg pulm clear GI soft ext neg edema skin neg rash Impression 1. Hypercalcemia 2. CAD 3. HTN 4. Chol 5. hx leukemia 6. JEROMY 7. bilateral hydro 8. hypokalemia 9. hypomagnesemia Plan - calcium is improved - will need close outpt follow up - will need to follo with oncology for biopsy - will decrease fluids further - pt received saline, lasix, calcitonin and pamidronate during his stay - pth levels now, checked twice - replace mag and potassium - start flomax as he has bilarteral hydro and needed a ceron
[2016-09-04] MEDS: TAMSULOSIN HCL 0.4 MG CAP.ER.24H (FP) PO SCH (14:13)
--- NOTE | 2016-09-04 16:41 | PN ---
Progress Note, Physician Chief Complaint: Mr Saucedo says he is feeling well. No cp, sob, n/v. - Current Medication List Current Medications: Active Medications Acetaminophen (Tylenol -) 650 mg PO Q4H PRN PRN Reason: FEVER OR PAIN Last Admin: 08/31/16 20:03 Dose: 650 mg Amlodipine Besylate (Norvasc -) 5 mg PO DAILY [facility] Last Admin: 09/04/16 10:08 Dose: 5 mg Atorvastatin Calcium (Lipitor -) 10 mg PO HS [facility] Last Admin: 09/03/16 21:24 Dose: 10 mg Cyanocobalamin (Vitamin B12 -) 2,500 mcg PO DAILY [facility] Last Admin: 09/04/16 10:07 Dose: 2,500 mcg Heparin Sodium (Porcine) (Heparin -) 5,000 unit SQ TID [facility] Last Admin: 09/04/16 14:12 Dose: 5,000 unit Levofloxacin (Levaquin 500 Mg Premixed Ivpb -) 100 mls @ 100 mls/hr IVPB DAILY [facility] Last Admin: 09/04/16 10:28 Dose: 100 mls/hr Lidocaine HCl (Xylocaine 2% Jelly) 1 applic TP BID PRN PRN Reason: PAIN Last Admin: 09/01/16 22:09 Dose: 1 applic Magnesium Oxide (Mag-Ox -) 400 mg PO BID [facility] Last Admin: 09/04/16 10:07 Dose: 400 mg Meclizine HCl (Antivert -) 25 mg PO Q6H PRN PRN Reason: VERTIGO Metoprolol Succinate (Toprol Xl -) 50 mg PO DAILY [facility] Last Admin: 09/04/16 10:07 Dose: 50 mg Ondansetron HCl (Zofran Injection) 4 mg IVPB Q6H PRN PRN Reason: NAUSEA Tamsulosin HCl (Flomax -) 0.4 mg PO DAILY@0830 [facility] Last Admin: 09/04/16 14:13 Dose: 0.4 mg - Objective Vital Signs: Vital Signs Temperature 98.0 F 09/04/16 13:57 Pulse Rate 68 09/04/16 13:57 Respiratory Rate 17 09/04/16 13:57 Blood Pressure 129/70 09/04/16 09:00 O2 Sat by Pulse Oximetry (%) 97 09/04/16 09:00 Constitutional: Yes: Well Nourished, No Distress, Calm Cardiovascular: Yes: Regular Rate and Rhythm. No: Gallop, Murmur, Rub Respiratory: Yes: Regular, CTA Bilaterally. No: Rales, Rhonchi, Wheezes Gastrointestinal: Yes: Normal Bowel Sounds, Soft. No: Distention, Tenderness Extremities: Yes: WNL Edema: No Labs: CBC, BMP 09/04/16 06:30 09/04/16 06:30 Problem List - Problems (1) Hypercalcemia Code(s): E83.52 - HYPERCALCEMIA (2) Abdominal pain Code(s): R10.9 - UNSPECIFIED ABDOMINAL PAIN (3) CAD (coronary artery disease) Code(s): I25.10 - ATHSCL HEART DISEASE OF [place] CORONARY ARTERY W/O ANG PCTRS (4) HTN (hypertension) Code(s): I10 - ESSENTIAL (PRIMARY) HYPERTENSION (5) HLD (hyperlipidemia) Code(s): E78.5 - HYPERLIPIDEMIA, UNSPECIFIED Assessment/Plan (1) Hypercalcemia Assessment/Plan: -case d/w Dr Hopper -IVF stopped today -calcium at baseline -recheck tomorrow -possible discharge when calcium is stable off of antibiotics Code(s): E83.52 - HYPERCALCEMIA (2) Abdominal pain Assessment/Plan: -resolved Code(s): R10.9 - UNSPECIFIED ABDOMINAL PAIN (3) CKD Assessment/Plan: -at baseline -continue to monitor Code(s): N17.9 - ACUTE KIDNEY FAILURE, UNSPECIFIED (4) CAD (coronary artery disease) Assessment/Plan: -stable -continue statin and toprol xl -hold aspirin for biopsy Code(s): I25.10 - ATHSCL HEART DISEASE OF [place] CORONARY ARTERY W/O ANG PCTRS (5) HTN (hypertension) Assessment/Plan: -continue toprol and amlodipine Code(s): I10 - ESSENTIAL (PRIMARY) HYPERTENSION (6) HLD (hyperlipidemia) Assessment/Plan: -continue statin Code(s): E78.5 - HYPERLIPIDEMIA, UNSPECIFIED (7) CLL -plan for biopsy -can be done as an outpatient (8) Fevers -levaquin day 4 -will stop tomorrow and observe
[2016-09-04] MEDS: ATORVASTATIN CA 10 MG TABLET (FP) PO SCH (21:08)
[2016-09-05] MEDS: HEPARIN NA (PORCINE) 5,000 UNITS/ML 1ML VIAL SQ SCH ×3 (06:22→21:53)
[2016-09-05 08:41] LABS: CALCIUM 9.9 mg/dL (8.5-10.1)
--- NOTE | 2016-09-05 08:43 | PN ---
Progress Note, Physician Chief Complaint: no complaints of pain. urinating well; no nausea or cramps. History of Present Illness: Patient with in hospital treatment for Hypercalcemia and JEROMY and with a history of hypertension and CLL is improved and we are awaiting his morning lab tests. No complaints and urinating well. Bx may be done as outpt. but patient cannot go home today because of weather conditions. - Current Medication List Current Medications: Active Medications Acetaminophen (Tylenol -) 650 mg PO Q4H PRN PRN Reason: FEVER OR PAIN Last Admin: 08/31/16 20:03 Dose: 650 mg Amlodipine Besylate (Norvasc -) 5 mg PO DAILY [facility] Last Admin: 09/04/16 10:08 Dose: 5 mg Atorvastatin Calcium (Lipitor -) 10 mg PO HS [facility] Last Admin: 09/04/16 21:08 Dose: 10 mg Cyanocobalamin (Vitamin B12 -) 2,500 mcg PO DAILY [facility] Last Admin: 09/04/16 10:07 Dose: 2,500 mcg Heparin Sodium (Porcine) (Heparin -) 5,000 unit SQ TID [facility] Last Admin: 09/05/16 06:22 Dose: 5,000 unit Levofloxacin (Levaquin 500 Mg Premixed Ivpb -) 100 mls @ 100 mls/hr IVPB DAILY [facility] Last Admin: 09/04/16 10:28 Dose: 100 mls/hr Lidocaine HCl (Xylocaine 2% Jelly) 1 applic TP BID PRN PRN Reason: PAIN Last Admin: 09/01/16 22:09 Dose: 1 applic Magnesium Oxide (Mag-Ox -) 400 mg PO BID [facility] Last Admin: 09/04/16 21:08 Dose: 400 mg Magnesium Sulfate (Magnesium Sulfate) 1 gm IVPB ONCE ONE Stop: 09/05/16 09:01 Meclizine HCl (Antivert -) 25 mg PO Q6H PRN PRN Reason: VERTIGO Metoprolol Succinate (Toprol Xl -) 50 mg PO DAILY [facility] Last Admin: 09/04/16 10:07 Dose: 50 mg Ondansetron HCl (Zofran Injection) 4 mg IVPB Q6H PRN PRN Reason: NAUSEA Potassium Chloride (K-Dur -) 40 meq PO ONCE ONE Stop: 09/05/16 09:01 Tamsulosin HCl (Flomax -) 0.4 mg PO DAILY@0830 [facility] Last Admin: 09/04/16 14:13 Dose: 0.4 mg - Objective Vital Signs: Vital Signs Temperature 98.2 F 09/05/16 06:00 Pulse Rate 73 09/05/16 06:00 Respiratory Rate 20 09/05/16 06:00 Blood Pressure 126/72 09/05/16 06:00 O2 Sat by Pulse Oximetry (%) 98 09/04/16 21:00 Constitutional: Yes: Calm Eyes: Yes: Conjunctiva Clear Cardiovascular: Yes: Regular Rate and Rhythm Respiratory: Yes: Regular Gastrointestinal: Yes: Soft Genitourinary: No: Flores Present Edema: No Neurological: Yes: Alert, Oriented Labs: CBC, BMP 09/04/16 06:30 Assessment/Plan Await AM lab to check K and Magnesium and Calcium levels.
[2016-09-05 08:44] LABS: CREATININE 1.4 mg/dL (0.7-1.3)
[2016-09-05] MEDS ORDERED: POTASSIUM CHLORIDE TABS 20 MEQ TABLET.ER (FP) PO ONE ×2 (09:00→20:00)
[2016-09-05] MEDS ORDERED: MAGNESIUM SULF 50% (8.12 MEQ/2 ML-1 GM VIAL) IVPB ONE ×2 (09:00→14:32)
[2016-09-05] MEDS: LEVOFLOXACIN 500 MG IVPB 100 ML IVPB SCH (09:52)
[2016-09-05] MEDS: TAMSULOSIN HCL 0.4 MG CAP.ER.24H (FP) PO SCH (09:53)
[2016-09-05] MEDS: CYANOCOBALAMIN 1,000 MCG TABLET (FP) PO SCH (09:53)
[2016-09-05] MEDS: MAGNESIUM OXIDE 400 MG TABLET (FP) PO SCH ×2 (09:53→21:52)
[2016-09-05] MEDS: amLODIPine BESYLATE 5 MG TABLET (FP) PO SCH (09:53)
[2016-09-05] MEDS: METOPROLOL SUCCINATE 50 MG TAB.SR.24H (FP) PO SCH (09:53)
--- NOTE | 2016-09-05 14:31 | PN ---
Progress Note, Physician History of Present Illness: Pt seen and examined at bedside. He is awake and alert. He denies shortness of breath. - Current Medication List Current Medications: Active Medications Acetaminophen (Tylenol -) 650 mg PO Q4H PRN PRN Reason: FEVER OR PAIN Last Admin: 08/31/16 20:03 Dose: 650 mg Amlodipine Besylate (Norvasc -) 5 mg PO DAILY [facility] Last Admin: 09/05/16 09:53 Dose: 5 mg Atorvastatin Calcium (Lipitor -) 10 mg PO HS [facility] Last Admin: 09/04/16 21:08 Dose: 10 mg Cyanocobalamin (Vitamin B12 -) 2,500 mcg PO DAILY [facility] Last Admin: 09/05/16 09:53 Dose: 2,500 mcg Heparin Sodium (Porcine) (Heparin -) 5,000 unit SQ TID [facility] Last Admin: 09/05/16 13:48 Dose: 5,000 unit Levofloxacin (Levaquin 500 Mg Premixed Ivpb -) 100 mls @ 100 mls/hr IVPB DAILY [facility] Last Admin: 09/05/16 09:52 Dose: 100 mls/hr Lidocaine HCl (Xylocaine 2% Jelly) 1 applic TP BID PRN PRN Reason: PAIN Last Admin: 09/01/16 22:09 Dose: 1 applic Magnesium Oxide (Mag-Ox -) 400 mg PO BID [facility] Last Admin: 09/05/16 09:53 Dose: 400 mg Meclizine HCl (Antivert -) 25 mg PO Q6H PRN PRN Reason: VERTIGO Metoprolol Succinate (Toprol Xl -) 50 mg PO DAILY [facility] Last Admin: 09/05/16 09:53 Dose: 50 mg Ondansetron HCl (Zofran Injection) 4 mg IVPB Q6H PRN PRN Reason: NAUSEA Tamsulosin HCl (Flomax -) 0.4 mg PO DAILY@0830 [facility] Last Admin: 09/05/16 09:53 Dose: 0.4 mg - Objective Vital Signs: Vital Signs Temperature 98.1 F 09/05/16 14:00 Pulse Rate 76 09/05/16 14:00 Respiratory Rate 21 09/05/16 14:00 Blood Pressure 131/62 09/05/16 09:00 O2 Sat by Pulse Oximetry (%) 98 09/05/16 09:00 Constitutional: Yes: Calm Eyes: Yes: Conjunctiva Clear HENT: Yes: Atraumatic Cardiovascular: Yes: S1, S2 Respiratory: Yes: CTA Bilaterally Gastrointestinal: Yes: Normal Bowel Sounds, Soft Genitourinary: Yes: WNL Musculoskeletal: Yes: WNL Edema: No Neurological: Yes: Oriented Psychiatric: Yes: Oriented Labs: CBC, BMP 09/04/16 06:30 09/05/16 07:00 Assessment/Plan Current Medications Generic Name Dose Route Start Last Admin Trade Name Freq PRN Reason Stop Dose Admin Acetaminophen 650 mg 08/26/16 21:21 08/31/16 20:03 Tylenol - PO 650 mg Q4H PRN Administration FEVER OR PAIN Amlodipine Besylate 5 mg 08/28/16 16:00 09/05/16 09:53 Norvasc - PO 5 mg DAILY FREDY Administration Atorvastatin Calcium 10 mg 08/27/16 22:00 09/04/16 21:08 Lipitor - PO 10 mg HS FREDY Administration Cyanocobalamin 2,500 mcg 08/27/16 10:00 09/05/16 09:53 Vitamin B12 - PO 2,500 mcg DAILY FREDY Administration Heparin Sodium (Porcine) 5,000 unit 08/26/16 22:00 09/05/16 13:48 Heparin - SQ 5,000 unit TID FREDY Administration Levofloxacin 100 mls @ 100 mls/hr 09/01/16 15:00 09/05/16 09:52 Levaquin 500 Mg Premixed Ivpb - IVPB 100 mls/hr DAILY FREDY Administration Lidocaine HCl 1 applic 09/01/16 19:03 09/01/16 22:09 Xylocaine 2% Jelly TP 1 applic BID PRN Administration PAIN Magnesium Oxide 400 mg 08/31/16 22:00 09/05/16 09:53 Mag-Ox - PO 400 mg BID FREDY Administration Meclizine HCl 25 mg 08/27/16 15:35 Antivert - PO Q6H PRN VERTIGO Metoprolol Succinate 50 mg 08/27/16 10:00 09/05/16 09:53 Toprol Xl - PO 50 mg DAILY FREDY Administration Ondansetron HCl 4 mg 09/03/16 18:52 Zofran Injection IVPB Q6H PRN NAUSEA Tamsulosin HCl 0.4 mg 09/04/16 12:45 09/05/16 09:53 Flomax - PO 0.4 mg DAILY@0830 FREDY Administration Impression 1. Hypercalcemia 2. CAD 3. HTN 4. Chol 5. hx leukemia 6. JEROMY 7. bilateral hydro 8. hypokalemia 9. hypomagnesemia Plan - repeat labs in am - will check labs in am - volume status is stable - pt will go for biopsy as outpt - will need oncology follow up - PTH is low which was expected - will follow Dr Hopper
[2016-09-05] MEDS: SODIUM CHLORIDE 1,000 ML IV SCH (16:14)
[2016-09-05] MEDS: ATORVASTATIN CA 10 MG TABLET (FP) PO SCH (21:52)
[2016-09-06] MEDS: HEPARIN NA (PORCINE) 5,000 UNITS/ML 1ML VIAL SQ SCH ×3 (06:09→21:13)
[2016-09-06 07:54] LABS: CALCIUM 10.5 mg/dL (8.5-10.1); CREATININE 1.4 mg/dL (0.7-1.3); MAGNESIUM 1.9 mg/dL (1.8-2.4); PHOSPHOROUS 2.9 mg/dL (2.5-4.9)
[2016-09-06 07:57] LABS: BILIRUBIN,TOTAL 0.4 mg/dL (0.2-1.0); TOT PROT 5.9 g/dl (6.4-8.2)
[2016-09-06] MEDS: TAMSULOSIN HCL 0.4 MG CAP.ER.24H (FP) PO SCH (08:20)
[2016-09-06] MEDS: amLODIPine BESYLATE 5 MG TABLET (FP) PO SCH (09:27)
[2016-09-06] MEDS: LEVOFLOXACIN 500 MG IVPB 100 ML IVPB SCH (09:27)
[2016-09-06] MEDS: METOPROLOL SUCCINATE 50 MG TAB.SR.24H (FP) PO SCH (09:28)
[2016-09-06] MEDS: CYANOCOBALAMIN 1,000 MCG TABLET (FP) PO SCH (09:28)
[2016-09-06] MEDS: MAGNESIUM OXIDE 400 MG TABLET (FP) PO SCH ×2 (09:28→21:13)
--- NOTE | 2016-09-06 13:17 | PN ---
Progress Note, Physician Chief Complaint: Mr Saucedo says he is feeling well. No cp, sob, n/v. Ambulating in hallways without difficulty. - Current Medication List Current Medications: Active Medications Acetaminophen (Tylenol -) 650 mg PO Q4H PRN PRN Reason: FEVER OR PAIN Last Admin: 08/31/16 20:03 Dose: 650 mg Amlodipine Besylate (Norvasc -) 5 mg PO DAILY [facility] Last Admin: 09/06/16 09:27 Dose: 5 mg Atorvastatin Calcium (Lipitor -) 10 mg PO HS [facility] Last Admin: 09/05/16 21:52 Dose: 10 mg Cyanocobalamin (Vitamin B12 -) 2,500 mcg PO DAILY [facility] Last Admin: 09/06/16 09:28 Dose: 2,500 mcg Heparin Sodium (Porcine) (Heparin -) 5,000 unit SQ TID [facility] [place] Last Admin: 09/06/16 06:09 Dose: 5,000 unit Levofloxacin (Levaquin 500 Mg Premixed Ivpb -) 100 mls @ 100 mls/hr IVPB DAILY [facility] [place] Last Admin: 09/06/16 09:27 Dose: 100 mls/hr Sodium Chloride (Normal Saline -) 1,000 mls @ 100 mls/hr IV ASDIR [facility] [place] Last Admin: 09/05/16 16:14 Dose: 100 mls/hr Lidocaine HCl (Xylocaine 2% Jelly) 1 applic TP BID PRN PRN Reason: PAIN Last Admin: 09/01/16 22:09 Dose: 1 applic Magnesium Oxide (Mag-Ox -) 400 mg PO BID [facility] [place] Last Admin: 09/06/16 09:28 Dose: 400 mg Meclizine HCl (Antivert -) 25 mg PO Q6H PRN PRN Reason: VERTIGO Metoprolol Succinate (Toprol Xl -) 50 mg PO DAILY [facility] [place] Last Admin: 09/06/16 09:28 Dose: 50 mg Ondansetron HCl (Zofran Injection) 4 mg IVPB Q6H PRN PRN Reason: NAUSEA Tamsulosin HCl (Flomax -) 0.4 mg PO DAILY@0830 [facility] Last Admin: 09/06/16 08:20 Dose: 0.4 mg - Objective Vital Signs: Vital Signs Temperature 98.7 F 09/06/16 08:48 Pulse Rate 75 09/06/16 08:48 Respiratory Rate 18 09/06/16 09:00 Blood Pressure 131/73 09/06/16 08:48 O2 Sat by Pulse Oximetry (%) 97 09/06/16 09:00 Constitutional: Yes: Well Nourished, No Distress, Calm Cardiovascular: Yes: Regular Rate and Rhythm. No: Gallop, Murmur, Rub Respiratory: Yes: Regular, CTA Bilaterally. No: Rales, Rhonchi, Wheezes Gastrointestinal: Yes: Normal Bowel Sounds, Soft. No: Distention, Tenderness Extremities: Yes: WNL Edema: No Labs: CBC, BMP 09/04/16 06:30 09/06/16 06:40 Problem List - Problems (1) Hypercalcemia Code(s): E83.52 - HYPERCALCEMIA (2) Abdominal pain Code(s): R10.9 - UNSPECIFIED ABDOMINAL PAIN (3) CAD (coronary artery disease) Code(s): I25.10 - ATHSCL HEART DISEASE OF [place] CORONARY ARTERY W/O ANG PCTRS (4) HTN (hypertension) Code(s): I10 - ESSENTIAL (PRIMARY) HYPERTENSION (5) HLD (hyperlipidemia) Code(s): E78.5 - HYPERLIPIDEMIA, UNSPECIFIED Assessment/Plan (1) Hypercalcemia Assessment/Plan: -case d/w Dr Hopper -calcium elevated off of IVF -start calcitonin SQ -will maintain in hospital to get biopsy, need to find cause of hypercalcemia Code(s): E83.52 - HYPERCALCEMIA (2) Abdominal pain Assessment/Plan: -resolved Code(s): R10.9 - UNSPECIFIED ABDOMINAL PAIN (3) CKD Assessment/Plan: -at baseline -continue to monitor Code(s): N17.9 - ACUTE KIDNEY FAILURE, UNSPECIFIED (4) CAD (coronary artery disease) Assessment/Plan: -stable -continue statin and toprol xl -hold aspirin for biopsy Code(s): I25.10 - ATHSCL HEART DISEASE OF [place] CORONARY ARTERY W/O ANG PCTRS (5) HTN (hypertension) Assessment/Plan: -continue toprol and amlodipine Code(s): I10 - ESSENTIAL (PRIMARY) HYPERTENSION (6) HLD (hyperlipidemia) Assessment/Plan: -continue statin Code(s): E78.5 - HYPERLIPIDEMIA, UNSPECIFIED (7) CLL -plan for biopsy -will need to do biopsy as an inpatient as has elevating calcium (8) Fevers -stop levaquin -fevers resolved
--- NOTE | 2016-09-06 14:22 | PN ---
Progress Note, Physician History of Present Illness: Pt seen and examined at bedside. He is awake and alert. He has no complaints. He denies shortness of breath. - Current Medication List Current Medications: Active Medications Acetaminophen (Tylenol -) 650 mg PO Q4H PRN PRN Reason: FEVER OR PAIN Last Admin: 08/31/16 20:03 Dose: 650 mg Amlodipine Besylate (Norvasc -) 5 mg PO DAILY [facility] Last Admin: 09/06/16 09:27 Dose: 5 mg Atorvastatin Calcium (Lipitor -) 10 mg PO HS [facility] Last Admin: 09/05/16 21:52 Dose: 10 mg Cyanocobalamin (Vitamin B12 -) 2,500 mcg PO DAILY [facility] Last Admin: 09/06/16 09:28 Dose: 2,500 mcg Heparin Sodium (Porcine) (Heparin -) 5,000 unit SQ TID [facility] Last Admin: 09/06/16 06:09 Dose: 5,000 unit Levofloxacin (Levaquin 500 Mg Premixed Ivpb -) 100 mls @ 100 mls/hr IVPB DAILY [facility] Last Admin: 09/06/16 09:27 Dose: 100 mls/hr Sodium Chloride (Normal Saline -) 1,000 mls @ 100 mls/hr IV ASDIR [facility] Last Admin: 09/05/16 16:14 Dose: 100 mls/hr Lidocaine HCl (Xylocaine 2% Jelly) 1 applic TP BID PRN PRN Reason: PAIN Last Admin: 09/01/16 22:09 Dose: 1 applic Magnesium Oxide (Mag-Ox -) 400 mg PO BID [facility] Last Admin: 09/06/16 09:28 Dose: 400 mg Meclizine HCl (Antivert -) 25 mg PO Q6H PRN PRN Reason: VERTIGO Metoprolol Succinate (Toprol Xl -) 50 mg PO DAILY [facility] Last Admin: 09/06/16 09:28 Dose: 50 mg Ondansetron HCl (Zofran Injection) 4 mg IVPB Q6H PRN PRN Reason: NAUSEA Tamsulosin HCl (Flomax -) 0.4 mg PO DAILY@0830 [facility] Last Admin: 09/06/16 08:20 Dose: 0.4 mg - Objective Vital Signs: Vital Signs Temperature 98.7 F 09/06/16 08:48 Pulse Rate 75 09/06/16 08:48 Respiratory Rate 18 09/06/16 09:00 Blood Pressure 131/73 09/06/16 08:48 O2 Sat by Pulse Oximetry (%) 97 09/06/16 09:00 Constitutional: Yes: Calm Eyes: Yes: Conjunctiva Clear HENT: Yes: Atraumatic Neck: Yes: Supple Cardiovascular: Yes: S1, S2 Respiratory: Yes: On Nasal O2 Gastrointestinal: Yes: Soft Genitourinary: Yes: WNL Musculoskeletal: Yes: WNL Edema: No Neurological: Yes: Oriented Psychiatric: Yes: Oriented Labs: CBC, BMP 09/04/16 06:30 09/06/16 06:40 Assessment/Plan Current Medications Generic Name Dose Route Start Last Admin Trade Name Freq PRN Reason Stop Dose Admin Acetaminophen 650 mg 08/26/16 21:21 08/31/16 20:03 Tylenol - PO 650 mg Q4H PRN Administration FEVER OR PAIN Amlodipine Besylate 5 mg 08/28/16 16:00 09/06/16 09:27 Norvasc - PO 5 mg DAILY FREDY Administration Atorvastatin Calcium 10 mg 08/27/16 22:00 09/05/16 21:52 Lipitor - PO 10 mg HS FREDY Administration Cyanocobalamin 2,500 mcg 08/27/16 10:00 09/06/16 09:28 Vitamin B12 - PO 2,500 mcg DAILY FREDY Administration Heparin Sodium (Porcine) 5,000 unit 08/26/16 22:00 09/06/16 06:09 Heparin - SQ 5,000 unit TID FREDY Administration Levofloxacin 100 mls @ 100 mls/hr 09/01/16 15:00 09/06/16 09:27 Levaquin 500 Mg Premixed Ivpb - IVPB 100 mls/hr DAILY FREDY Administration Sodium Chloride 1,000 mls @ 100 mls/hr 09/05/16 14:45 09/05/16 16:14 Normal Saline - IV 100 mls/hr ASDIR FREDY Administration Lidocaine HCl 1 applic 09/01/16 19:03 09/01/16 22:09 Xylocaine 2% Jelly TP 1 applic BID PRN Administration PAIN Magnesium Oxide 400 mg 08/31/16 22:00 09/06/16 09:28 Mag-Ox - PO 400 mg BID FREDY Administration Meclizine HCl 25 mg 08/27/16 15:35 Antivert - PO Q6H PRN VERTIGO Metoprolol Succinate 50 mg 08/27/16 10:00 09/06/16 09:28 Toprol Xl - PO 50 mg DAILY FREDY Administration Ondansetron HCl 4 mg 09/03/16 18:52 Zofran Injection IVPB Q6H PRN NAUSEA Tamsulosin HCl 0.4 mg 09/04/16 12:45 09/06/16 08:20 Flomax - PO 0.4 mg DAILY@0830 FREDY Administration Impression 1. Hypercalcemia 2. CAD 3. HTN 4. Chol 5. hx leukemia 6. JEROMY 7. bilateral hydro 8. hypokalemia 9. hypomagnesemia Plan - cont with fluids - pt received bisphosphonates - will give calcitonin - repeat labs in am - oncology follow up - IR for biopsy - ASA on hold - PTH is low which was expected - will follow Dr Hopper
[2016-09-06] MEDS: SODIUM CHLORIDE 1,000 ML IV SCH ×3 (14:23→22:50)
[2016-09-06] MEDS: CALCITONIN - SALMON SYNTHETIC 400 UNIT/2 ML VIAL SQ SCH ×2 (17:16→21:13)
[2016-09-06] MEDS ORDERED: PT OWN MED DRAWER 7, Y5N ONE (17:22)
[2016-09-06] MEDS: ATORVASTATIN CA 10 MG TABLET (FP) PO SCH (21:13)
[2016-09-07] MEDS: HEPARIN NA (PORCINE) 5,000 UNITS/ML 1ML VIAL SQ SCH ×3 (06:08→21:28)
[2016-09-07] MEDS: SODIUM CHLORIDE 1,000 ML IV SCH ×3 (06:20→22:19)
[2016-09-07 08:26] LABS: BASOPHIL 0.8 % (0-2.0); EOSINOPHIL 2.5 % (0-4.5); MCH 29.4 pg (25.7-33.7); MCHC 33.7 g/dl (32.0-35.9); MEAN CELL VOLUME 87.3 fl (80-96); MEAN PLT VOLUME 6.7 fl (7.5-11.1); NEUTROPHILS 54.5 % (42.8-82.8); PLATELET COUNT 217 K/MM3 (134-434); RDW 14.7 % (11.9-15.9); WHITE BLOOD COUNT 8.7 K/mm3 (4.0-10.0)
[2016-09-07] MEDS: TAMSULOSIN HCL 0.4 MG CAP.ER.24H (FP) PO SCH (08:45)
[2016-09-07 08:51] LABS: ALBUMIN 2.8 g/dl (3.4-5.0)
[2016-09-07 08:56] LABS: BILIRUBIN,TOTAL 0.3 mg/dL (0.2-1.0); CREATININE 1.4 mg/dL (0.7-1.3); MAGNESIUM 1.6 mg/dL (1.8-2.4); TOT PROT 5.5 g/dl (6.4-8.2)
[2016-09-07] MEDS: CYANOCOBALAMIN 1,000 MCG TABLET (FP) PO SCH (09:28)
[2016-09-07] MEDS: amLODIPine BESYLATE 5 MG TABLET (FP) PO SCH (09:29)
[2016-09-07] MEDS: MAGNESIUM OXIDE 400 MG TABLET (FP) PO SCH ×2 (09:29→21:28)
[2016-09-07] MEDS: METOPROLOL SUCCINATE 50 MG TAB.SR.24H (FP) PO SCH (09:29)
--- NOTE | 2016-09-07 11:25 | PN ---
Progress Note (short form) - Note Progress Note: RENAL pt awake and alert comfortable says he is urinating a lot Last Vital Signs Temp Pulse Resp BP Pulse Ox 98.3 F 73 18 119/70 97 09/07/16 06:00 09/07/16 06:00 09/07/16 06:00 09/07/16 06:00 09/06/16 22:00 lungs clear cvs s1s2 rr abd soft ext no edema has no palpable adenopathy neuro a+ox3 CBC, BMP 09/07/16 07:35 09/07/16 07:35 Impression 1. Hypercalcemia improved- cbc does not suggest an aggressive lymphoma 2. CAD 3. HTN 4. Chol 5. hx CLL 6. JEROMY stable, better 7. bilateral hydro 8. hypokalemia 9. hypomagnesemia Plan - cont with fluids - pt received bisphosphonates - repeat labs in am - oncology follow up - IR for biopsy - ASA on hold - PTH is low which was expected - bone scan r/o mets, vit d level MV
--- NOTE | 2016-09-07 11:52 | PN ---
Progress Note, Physician Chief Complaint: Mr Saucedo says he is feeling well. No cp, sob, n/v. - Current Medication List Current Medications: Active Medications Acetaminophen (Tylenol -) 650 mg PO Q4H PRN PRN Reason: FEVER OR PAIN Last Admin: 08/31/16 20:03 Dose: 650 mg Amlodipine Besylate (Norvasc -) 5 mg PO DAILY [facility] Last Admin: 09/07/16 09:29 Dose: 5 mg Atorvastatin Calcium (Lipitor -) 10 mg PO HS [facility] Last Admin: 09/06/16 21:13 Dose: 10 mg Cyanocobalamin (Vitamin B12 -) 2,500 mcg PO DAILY [facility] Last Admin: 09/07/16 09:28 Dose: 2,500 mcg Heparin Sodium (Porcine) (Heparin -) 5,000 unit SQ TID [facility] Last Admin: 09/07/16 06:08 Dose: 5,000 unit Sodium Chloride (Normal Saline -) 1,000 mls @ 150 mls/hr IV ASDIR [facility] Last Admin: 09/07/16 06:20 Dose: 150 mls/hr Lidocaine HCl (Xylocaine 2% Jelly) 1 applic TP BID PRN PRN Reason: PAIN Last Admin: 09/01/16 22:09 Dose: 1 applic Magnesium Oxide (Mag-Ox -) 400 mg PO BID [facility] Last Admin: 09/07/16 09:29 Dose: 400 mg Meclizine HCl (Antivert -) 25 mg PO Q6H PRN PRN Reason: VERTIGO Metoprolol Succinate (Toprol Xl -) 50 mg PO DAILY [facility] Last Admin: 09/07/16 09:29 Dose: 50 mg Ondansetron HCl (Zofran Injection) 4 mg IVPB Q6H PRN PRN Reason: NAUSEA Tamsulosin HCl (Flomax -) 0.4 mg PO DAILY@0830 [facility] Last Admin: 09/07/16 08:45 Dose: 0.4 mg - Objective Vital Signs: Vital Signs Temperature 97.2 F L 09/07/16 09:00 Pulse Rate 78 09/07/16 09:00 Respiratory Rate 18 09/07/16 09:00 Blood Pressure 122/66 09/07/16 09:00 O2 Sat by Pulse Oximetry (%) 97 09/07/16 09:00 Constitutional: Yes: Well Nourished, No Distress, Calm Cardiovascular: Yes: Regular Rate and Rhythm. No: Gallop, Murmur, Rub Respiratory: Yes: Regular, CTA Bilaterally. No: Rales, Rhonchi, Wheezes Gastrointestinal: Yes: Normal Bowel Sounds, Soft. No: Distention, Tenderness Extremities: Yes: WNL Edema: No Labs: CBC, BMP 09/07/16 07:35 09/07/16 07:35 Problem List - Problems (1) Hypercalcemia Code(s): E83.52 - HYPERCALCEMIA (2) Abdominal pain Code(s): R10.9 - UNSPECIFIED ABDOMINAL PAIN (3) CAD (coronary artery disease) Code(s): I25.10 - ATHSCL HEART DISEASE OF [place] CORONARY ARTERY W/O ANG PCTRS (4) HTN (hypertension) Code(s): I10 - ESSENTIAL (PRIMARY) HYPERTENSION (5) HLD (hyperlipidemia) Code(s): E78.5 - HYPERLIPIDEMIA, UNSPECIFIED Assessment/Plan (1) Hypercalcemia Assessment/Plan: -nephrology following -calcium improved with calcitonin and IVF -continue hydration currently -will maintain in hospital to get biopsy, need to find cause of hypercalcemia Code(s): E83.52 - HYPERCALCEMIA (2) Abdominal pain Assessment/Plan: -resolved Code(s): R10.9 - UNSPECIFIED ABDOMINAL PAIN (3) CKD Assessment/Plan: -at baseline -continue to monitor Code(s): N17.9 - ACUTE KIDNEY FAILURE, UNSPECIFIED (4) CAD (coronary artery disease) Assessment/Plan: -stable -continue statin and toprol xl -hold aspirin for biopsy Code(s): I25.10 - ATHSCL HEART DISEASE OF [place] CORONARY ARTERY W/O ANG PCTRS (5) HTN (hypertension) Assessment/Plan: -continue toprol and amlodipine Code(s): I10 - ESSENTIAL (PRIMARY) HYPERTENSION (6) HLD (hyperlipidemia) Assessment/Plan: -continue statin Code(s): E78.5 - HYPERLIPIDEMIA, UNSPECIFIED (7) CLL -plan for biopsy -will need to do biopsy as an inpatient as has elevating calcium (8) Fevers -stopped levaquin -fevers resolved
[2016-09-07] MEDS: ATORVASTATIN CA 10 MG TABLET (FP) PO SCH (21:28)
[2016-09-08] MEDS: SODIUM CHLORIDE 1,000 ML IV SCH ×4 (05:00→19:30)
[2016-09-08] MEDS: HEPARIN NA (PORCINE) 5,000 UNITS/ML 1ML VIAL SQ SCH ×3 (05:52→21:11)
[2016-09-08 07:50] LABS: BASOPHIL 0.7 % (0-2.0); EOSINOPHIL 2.6 % (0-4.5); MCH 29.3 pg (25.7-33.7); MCHC 33.9 g/dl (32.0-35.9); MEAN CELL VOLUME 86.6 fl (80-96); NEUTROPHILS 56.9 % (42.8-82.8); PLATELET COUNT 218 K/MM3 (134-434); RDW 14.8 % (11.9-15.9); WHITE BLOOD COUNT 8.4 K/mm3 (4.0-10.0)
[2016-09-08 08:29] LABS: CALCIUM 10.8 mg/dL (8.5-10.1); CREATININE 1.4 mg/dL (0.7-1.3); MAGNESIUM 1.5 mg/dL (1.8-2.4); PHOSPHOROUS 2.7 mg/dL (2.5-4.9)
[2016-09-08] MEDS ORDERED: PT OWN MED DRAWER 7, Y5N ONE (09:21)
[2016-09-08] MEDS: METOPROLOL SUCCINATE 50 MG TAB.SR.24H (FP) PO SCH (09:25)
[2016-09-08] MEDS: CYANOCOBALAMIN 1,000 MCG TABLET (FP) PO SCH (09:25)
[2016-09-08] MEDS: TAMSULOSIN HCL 0.4 MG CAP.ER.24H (FP) PO SCH (09:25)
[2016-09-08] MEDS: amLODIPine BESYLATE 5 MG TABLET (FP) PO SCH (09:25)
[2016-09-08] MEDS: MAGNESIUM OXIDE 400 MG TABLET (FP) PO SCH ×2 (09:25→21:11)
--- NOTE | 2016-09-08 11:18 | PN ---
Progress Note (short form) - Note Progress Note: RENAL pt awake and alert comfortable says he is urinating a lot Last Vital Signs Temp Pulse Resp BP Pulse Ox 98.1 F 89 20 141/76 96 09/08/16 08:00 09/08/16 08:00 09/08/16 08:00 09/08/16 08:00 09/08/16 08:00 lungs clear cvs s1s2 rr abd soft ext no edema has no palpable adenopathy neuro a+ox3 CBC, BMP 09/08/16 06:20 09/08/16 06:20 Impression 1. Hypercalcemia improved- cbc does not suggest an aggressive lymphoma 2. CAD 3. HTN 4. Chol 5. hx CLL 6. JEROMY stable, better 7. bilateral hydro 8. hypokalemia probably from high urine output 9. hypomagnesemia Plan - cont with fluids - pt received bisphosphonates - repeat labs in am - oncology follow up - IR for biopsy - ASA on hold - PTH is low which was expected - bone scan r/o mets, vit d level -replace k MV
--- NOTE | 2016-09-08 11:28 | PN ---
Progress Note, Physician Chief Complaint: Mr Saucedo says he is feeling well. No cp, sob, n/v. - Current Medication List Current Medications: Active Medications Acetaminophen (Tylenol -) 650 mg PO Q4H PRN PRN Reason: FEVER OR PAIN Last Admin: 08/31/16 20:03 Dose: 650 mg Amlodipine Besylate (Norvasc -) 5 mg PO DAILY [facility] Last Admin: 09/08/16 09:25 Dose: 5 mg Atorvastatin Calcium (Lipitor -) 10 mg PO HS [facility] Last Admin: 09/07/16 21:28 Dose: 10 mg Calcitonin (Miacalcin Injection -) 250 unit SQ DAILY [facility] Cyanocobalamin (Vitamin B12 -) 2,500 mcg PO DAILY [facility] Last Admin: 09/08/16 09:25 Dose: 2,500 mcg Heparin Sodium (Porcine) (Heparin -) 5,000 unit SQ TID [facility] Last Admin: 09/08/16 05:52 Dose: 5,000 unit Sodium Chloride (Normal Saline -) 1,000 mls @ 150 mls/hr IV ASDIR [facility] Last Admin: 09/08/16 05:00 Dose: 150 mls/hr Lidocaine HCl (Xylocaine 2% Jelly) 1 applic TP BID PRN PRN Reason: PAIN Last Admin: 09/01/16 22:09 Dose: 1 applic Magnesium Oxide (Mag-Ox -) 400 mg PO BID [facility] Last Admin: 09/08/16 09:25 Dose: 400 mg Meclizine HCl (Antivert -) 25 mg PO Q6H PRN PRN Reason: VERTIGO Metoprolol Succinate (Toprol Xl -) 50 mg PO DAILY [facility] Last Admin: 09/08/16 09:25 Dose: 50 mg Ondansetron HCl (Zofran Injection) 4 mg IVPB Q6H PRN PRN Reason: NAUSEA Potassium Chloride (K-Dur -) 20 meq PO DAILY [facility] Tamsulosin HCl (Flomax -) 0.4 mg PO DAILY@0830 [facility] Last Admin: 09/08/16 09:25 Dose: 0.4 mg - Objective Vital Signs: Vital Signs Temperature 98.1 F 09/08/16 08:00 Pulse Rate 89 09/08/16 08:00 Respiratory Rate 20 09/08/16 08:00 Blood Pressure 141/76 09/08/16 08:00 O2 Sat by Pulse Oximetry (%) 96 09/08/16 08:00 Constitutional: Yes: Well Nourished, No Distress, Calm Cardiovascular: Yes: Regular Rate and Rhythm. No: Gallop, Murmur, Rub Respiratory: Yes: Regular, CTA Bilaterally. No: Rales, Rhonchi, Wheezes Gastrointestinal: Yes: Normal Bowel Sounds, Soft. No: Distention, Tenderness Extremities: Yes: WNL Edema: No Labs: CBC, BMP 09/08/16 06:20 09/08/16 06:20 Problem List - Problems (1) Hypercalcemia Code(s): E83.52 - HYPERCALCEMIA (2) Abdominal pain Code(s): R10.9 - UNSPECIFIED ABDOMINAL PAIN (3) CAD (coronary artery disease) Code(s): I25.10 - ATHSCL HEART DISEASE OF [place] CORONARY ARTERY W/O ANG PCTRS (4) HTN (hypertension) Code(s): I10 - ESSENTIAL (PRIMARY) HYPERTENSION (5) HLD (hyperlipidemia) Code(s): E78.5 - HYPERLIPIDEMIA, UNSPECIFIED Assessment/Plan (1) Hypercalcemia Assessment/Plan: -nephrology following -calcium elevated today, continue IVF and calcitonin -plan for biopsy tomorrow Code(s): E83.52 - HYPERCALCEMIA (2) Abdominal pain Assessment/Plan: -resolved Code(s): R10.9 - UNSPECIFIED ABDOMINAL PAIN (3) CKD Assessment/Plan: -at baseline -continue to monitor Code(s): N17.9 - ACUTE KIDNEY FAILURE, UNSPECIFIED (4) CAD (coronary artery disease) Assessment/Plan: -stable -continue statin and toprol xl -hold aspirin for biopsy Code(s): I25.10 - ATHSCL HEART DISEASE OF [place] CORONARY ARTERY W/O ANG PCTRS (5) HTN (hypertension) Assessment/Plan: -continue toprol and amlodipine Code(s): I10 - ESSENTIAL (PRIMARY) HYPERTENSION (6) HLD (hyperlipidemia) Assessment/Plan: -continue statin Code(s): E78.5 - HYPERLIPIDEMIA, UNSPECIFIED (7) CLL -plan for biopsy -will need to do biopsy as an inpatient as has elevating calcium (8) Fevers -stopped levaquin -fevers resolved
[2016-09-08] MEDS: POTASSIUM CHLORIDE TABS 10 MEQ TABLET.ER (FP) PO SCH (12:07)
[2016-09-08] MEDS: CALCITONIN - SALMON SYNTHETIC 400 UNIT/2 ML VIAL SQ SCH (12:08)
[2016-09-08] MEDS ORDERED: MAGNESIUM SULF 50% (8.12 MEQ/2 ML-1 GM VIAL) IVPB ONE (14:00)
[2016-09-08] MEDS: ATORVASTATIN CA 10 MG TABLET (FP) PO SCH (21:11)
[2016-09-09] MEDS: SODIUM CHLORIDE 1,000 ML IV SCH ×4 (02:39→22:04)
[2016-09-09] MEDS: HEPARIN NA (PORCINE) 5,000 UNITS/ML 1ML VIAL SQ SCH ×3 (06:00→21:02)
[2016-09-09 08:05] LABS: BASOPHIL 0.5 % (0-2.0); EOSINOPHIL 2.5 % (0-4.5); MCH 29.5 pg (25.7-33.7); MEAN CELL VOLUME 86.7 fl (80-96); NEUTROPHILS 54.8 % (42.8-82.8); PLATELET COUNT 218 K/MM3 (134-434); RDW 14.8 % (11.9-15.9); WHITE BLOOD COUNT 7.8 K/mm3 (4.0-10.0)
[2016-09-09 08:33] LABS: CALCIUM 10.5 mg/dL (8.5-10.1); CREATININE 1.4 mg/dL (0.7-1.3); MAGNESIUM 1.4 mg/dL (1.8-2.4); PHOSPHOROUS 2.7 mg/dL (2.5-4.9)
[2016-09-09] MEDS: TAMSULOSIN HCL 0.4 MG CAP.ER.24H (FP) PO SCH (08:37)
[2016-09-09 08:41] LABS: INR 1.18 (0.82-1.09)
[2016-09-09] MEDS: CYANOCOBALAMIN 1,000 MCG TABLET (FP) PO SCH (09:37)
[2016-09-09] MEDS: MAGNESIUM OXIDE 400 MG TABLET (FP) PO SCH ×2 (09:37→21:02)
[2016-09-09] MEDS: amLODIPine BESYLATE 5 MG TABLET (FP) PO SCH (09:37)
[2016-09-09] MEDS: POTASSIUM CHLORIDE TABS 10 MEQ TABLET.ER (FP) PO SCH (09:37)
[2016-09-09] MEDS: CALCITONIN - SALMON SYNTHETIC 400 UNIT/2 ML VIAL SQ SCH (09:37)
[2016-09-09] MEDS: METOPROLOL SUCCINATE 50 MG TAB.SR.24H (FP) PO SCH (09:42)
--- NOTE | 2016-09-09 12:11 | PN ---
Progress Note, Physician Chief Complaint: Mr Saucedo says he is feeling well. No cp, sob, n/v. Complains of being hungry - Current Medication List Current Medications: Active Medications Acetaminophen (Tylenol -) 650 mg PO Q4H PRN PRN Reason: FEVER OR PAIN Last Admin: 08/31/16 20:03 Dose: 650 mg Amlodipine Besylate (Norvasc -) 5 mg PO DAILY [facility] Last Admin: 09/09/16 09:37 Dose: Not Given Atorvastatin Calcium (Lipitor -) 10 mg PO HS [facility] Last Admin: 09/08/16 21:11 Dose: 10 mg Calcitonin (Miacalcin Injection -) 250 unit SQ DAILY [facility] Last Admin: 09/09/16 09:37 Dose: Not Given Cyanocobalamin (Vitamin B12 -) 2,500 mcg PO DAILY [facility] Last Admin: 09/09/16 09:37 Dose: Not Given Heparin Sodium (Porcine) (Heparin -) 5,000 unit SQ TID [facility] Last Admin: 09/09/16 06:00 Dose: Not Given Sodium Chloride (Normal Saline -) 1,000 mls @ 150 mls/hr IV ASDIR [facility] Last Admin: 09/09/16 09:40 Dose: 150 mls/hr Lidocaine HCl (Xylocaine 2% Jelly) 1 applic TP BID PRN PRN Reason: PAIN Last Admin: 09/01/16 22:09 Dose: 1 applic Magnesium Oxide (Mag-Ox -) 400 mg PO BID [facility] Last Admin: 09/09/16 09:37 Dose: Not Given Meclizine HCl (Antivert -) 25 mg PO Q6H PRN PRN Reason: VERTIGO Metoprolol Succinate (Toprol Xl -) 50 mg PO DAILY [facility] Last Admin: 09/09/16 09:42 Dose: 50 mg Ondansetron HCl (Zofran Injection) 4 mg IVPB Q6H PRN PRN Reason: NAUSEA Potassium Chloride (K-Dur -) 20 meq PO DAILY [facility] Last Admin: 09/09/16 09:37 Dose: Not Given Tamsulosin HCl (Flomax -) 0.4 mg PO DAILY@0830 [facility] Last Admin: 09/09/16 08:37 Dose: Not Given - Objective Vital Signs: Vital Signs Temperature 97.7 F 09/09/16 08:00 Pulse Rate 78 09/09/16 08:00 Respiratory Rate 20 09/09/16 08:00 Blood Pressure 136/84 09/09/16 08:00 O2 Sat by Pulse Oximetry (%) 96 09/09/16 08:00 Constitutional: Yes: Well Nourished, No Distress, Calm Cardiovascular: Yes: Regular Rate and Rhythm. No: Gallop, Murmur, Rub Respiratory: Yes: Regular, CTA Bilaterally. No: Rales, Rhonchi, Wheezes Gastrointestinal: Yes: Normal Bowel Sounds, Soft. No: Distention, Tenderness Extremities: Yes: WNL Edema: No Labs: CBC, BMP 09/09/16 06:38 09/09/16 06:38 INR, PTT INR 1.18 (0.82-1.09) H 09/09/16 06:38 Problem List - Problems (1) Hypercalcemia Code(s): E83.52 - HYPERCALCEMIA (2) Abdominal pain Code(s): R10.9 - UNSPECIFIED ABDOMINAL PAIN (3) CAD (coronary artery disease) Code(s): I25.10 - ATHSCL HEART DISEASE OF [place] CORONARY ARTERY W/O ANG PCTRS (4) HTN (hypertension) Code(s): I10 - ESSENTIAL (PRIMARY) HYPERTENSION (5) HLD (hyperlipidemia) Code(s): E78.5 - HYPERLIPIDEMIA, UNSPECIFIED Assessment/Plan (1) Hypercalcemia Assessment/Plan: -nephrology following -continue IVF and calcitonin -biopsy today Code(s): E83.52 - HYPERCALCEMIA (2) Abdominal pain Assessment/Plan: -resolved Code(s): R10.9 - UNSPECIFIED ABDOMINAL PAIN (3) CKD Assessment/Plan: -at baseline -continue to monitor Code(s): N17.9 - ACUTE KIDNEY FAILURE, UNSPECIFIED (4) CAD (coronary artery disease) Assessment/Plan: -stable -continue statin and toprol xl -hold aspirin for biopsy Code(s): I25.10 - ATHSCL HEART DISEASE OF [place] CORONARY ARTERY W/O ANG PCTRS (5) HTN (hypertension) Assessment/Plan: -continue toprol and amlodipine Code(s): I10 - ESSENTIAL (PRIMARY) HYPERTENSION (6) HLD (hyperlipidemia) Assessment/Plan: -continue statin Code(s): E78.5 - HYPERLIPIDEMIA, UNSPECIFIED (7) CLL -biopsy today (8) Fevers -stopped levaquin -fevers resolved
[2016-09-09] MEDS ORDERED: MAGNESIUM SULF 50% (8.12 MEQ/2 ML-1 GM VIAL) IVPB ONE (14:57)
[2016-09-09] MEDS ORDERED: POTASSIUM CHLORIDE TABS 20 MEQ TABLET.ER (FP) PO ONE (14:57)
--- NOTE | 2016-09-09 14:57 | PN ---
Progress Note, Physician History of Present Illness: Pt seen and examined at bedside. He is going for the biopsy today. He denies shortness of breath. - Current Medication List Current Medications: Active Medications Acetaminophen (Tylenol -) 650 mg PO Q4H PRN PRN Reason: FEVER OR PAIN Last Admin: 08/31/16 20:03 Dose: 650 mg Amlodipine Besylate (Norvasc -) 5 mg PO DAILY [facility] Last Admin: 09/09/16 09:37 Dose: Not Given Atorvastatin Calcium (Lipitor -) 10 mg PO HS [facility] Last Admin: 09/08/16 21:11 Dose: 10 mg Calcitonin (Miacalcin Injection -) 250 unit SQ DAILY [facility] Last Admin: 09/09/16 09:37 Dose: Not Given Cyanocobalamin (Vitamin B12 -) 2,500 mcg PO DAILY [facility] Last Admin: 09/09/16 09:37 Dose: Not Given Heparin Sodium (Porcine) (Heparin -) 5,000 unit SQ TID [facility] Last Admin: 09/09/16 13:21 Dose: Not Given Sodium Chloride (Normal Saline -) 1,000 mls @ 150 mls/hr IV [facility]IR [facility] Last Admin: 09/09/16 14:09 Dose: Not Given Lidocaine HCl (Xylocaine 2% Jelly) 1 applic TP BID PRN PRN Reason: PAIN Last Admin: 09/01/16 22:09 Dose: 1 applic Magnesium Oxide (Mag-Ox -) 400 mg PO BID [facility] Last Admin: 09/09/16 09:37 Dose: Not Given Meclizine HCl (Antivert -) 25 mg PO Q6H PRN PRN Reason: VERTIGO Metoprolol Succinate (Toprol Xl -) 50 mg PO DAILY [facility] Last Admin: 09/09/16 09:42 Dose: 50 mg Ondansetron HCl (Zofran Injection) 4 mg IVPB Q6H PRN PRN Reason: NAUSEA Potassium Chloride (K-Dur -) 20 meq PO DAILY [facility] Last Admin: 09/09/16 09:37 Dose: Not Given Tamsulosin HCl (Flomax -) 0.4 mg PO DAILY@0830 [facility] Last Admin: 09/09/16 08:37 Dose: Not Given - Objective Vital Signs: Vital Signs Temperature 97.7 F 09/09/16 08:00 Pulse Rate 78 09/09/16 08:00 Respiratory Rate 20 09/09/16 08:00 Blood Pressure 136/84 09/09/16 08:00 O2 Sat by Pulse Oximetry (%) 96 09/09/16 08:00 Constitutional: Yes: Calm Eyes: Yes: Conjunctiva Clear HENT: Yes: Atraumatic Cardiovascular: Yes: S1, S2 Respiratory: Yes: CTA Bilaterally Gastrointestinal: Yes: Soft Genitourinary: Yes: WNL Extremities: Yes: WNL Edema: Yes Edema: LLE: Trace, RLE: Trace Neurological: Yes: Oriented Psychiatric: Yes: Oriented Labs: CBC, BMP 09/09/16 06:38 09/09/16 06:38 INR, PTT INR 1.18 (0.82-1.09) H 09/09/16 06:38 Assessment/Plan Current Medications Generic Name Dose Route Start Last Admin Trade Name Freq PRN Reason Stop Dose Admin Acetaminophen 650 mg 08/26/16 21:21 08/31/16 20:03 Tylenol - PO 650 mg Q4H PRN Administration FEVER OR PAIN Amlodipine Besylate 5 mg 08/28/16 16:00 09/09/16 09:37 Norvasc - PO Not Given [facility]ILY [facility] Atorvastatin Calcium 10 mg 08/27/16 22:00 09/08/16 21:11 Lipitor - PO 10 mg HS [facility] Administration Calcitonin 250 unit 09/08/16 12:00 09/09/16 09:37 Miacalcin Injection - SQ Not Given DAILY [facility] Cyanocobalamin 2,500 mcg 08/27/16 10:00 09/09/16 09:37 Vitamin B12 - PO Not Given [facility]ILY [facility] Heparin Sodium (Porcine) 5,000 unit 08/26/16 22:00 09/09/16 13:21 Heparin - SQ Not Given TID [facility] Sodium Chloride 1,000 mls @ 150 mls/hr 09/06/16 14:25 09/09/16 14:09 Normal Saline - IV Not Given [facility] Lidocaine HCl 1 applic 09/01/16 19:03 09/01/16 22:09 Xylocaine 2% Jelly TP 1 applic BID PRN Administration PAIN Magnesium Oxide 400 mg 08/31/16 22:00 09/09/16 09:37 Mag-Ox - PO Not Given BID [facility] Meclizine HCl 25 mg 08/27/16 15:35 Antivert - PO Q6H PRN VERTIGO Metoprolol Succinate 50 mg 08/27/16 10:00 09/09/16 09:42 Toprol Xl - PO 50 mg DAILY [facility] Administration Ondansetron HCl 4 mg 09/03/16 18:52 Zofran Injection IVPB Q6H PRN NAUSEA Potassium Chloride 20 meq 09/08/16 11:30 09/09/16 09:37 K-Dur - PO Not Given DAILY [facility] Tamsulosin HCl 0.4 mg 09/04/16 12:45 09/09/16 08:37 Flomax - PO Not Given DAILY@0830 [facility] Impression 1. Hypercalcemia 2. CAD 3. HTN 4. Chol 5. hx leukemia 6. JEROMY 7. bilateral hydro 8. hypokalemia 9. hypomagnesemia Plan - biopsy today - follup up vt d levels - cont calcitonin - repeat labs in am - cont fluids - give lasix of he developed overload - ASA on hold - PTH is low which was expected - will follow Dr Hopper
[2016-09-09] MEDS: ATORVASTATIN CA 10 MG TABLET (FP) PO SCH (21:02)
[2016-09-10] MEDS: SODIUM CHLORIDE 1,000 ML IV SCH ×2 (05:00→15:53)
[2016-09-10] MEDS: HEPARIN NA (PORCINE) 5,000 UNITS/ML 1ML VIAL SQ SCH ×3 (06:06→22:09)
[2016-09-10 07:32] LABS: BASOPHIL 0.5 % (0-2.0); EOSINOPHIL 2.6 % (0-4.5); MCH 29.5 pg (25.7-33.7); MCHC 34.2 g/dl (32.0-35.9); MEAN CELL VOLUME 86.4 fl (80-96); MEAN PLT VOLUME 7.1 fl (7.5-11.1); NEUTROPHILS 54.7 % (42.8-82.8); PLATELET COUNT 207 K/MM3 (134-434); WHITE BLOOD COUNT 7.4 K/mm3 (4.0-10.0)
[2016-09-10 08:00] LABS: CALCIUM 10.1 mg/dL (8.5-10.1); MAGNESIUM 1.7 mg/dL (1.8-2.4); PHOSPHOROUS 2.6 mg/dL (2.5-4.9)
[2016-09-10 08:01] LABS: CREATININE 1.3 mg/dL (0.7-1.3)
--- NOTE | 2016-09-10 08:13 | PN ---
Progress Note (short form) - Note Progress Note: Patient well s/p LN Bx . He denies any abdominal pain. His CA ++ level this AM is normal. Awaiting Bx and Oncology followup. He denies any CP / SOB / Palpitations. Selected Entries 09/10/16 07:05 Temperature 99.2 F Pulse Rate 80 Respiratory 20 Rate Blood Pressure 134/74 Laboratory Tests 09/10/16 09/10/16 05:35 05:35 WBC 7.4 RBC 3.59 L Hgb 10.6 L Hct 31.0 L Plt Count 207 Sodium 142 Potassium 3.6 Chloride 103 Carbon Dioxide 31 Anion Gap 8 BUN 20 H Creatinine 1.3 Random Glucose 97 Calcium 10.1 P/E <> ALERT / ORIENTED X 3 . HEENT <> CAROTIDS 2 + NECK SUPPLE COR <> S 1 S 2 NSR CHEST <> CLEAR NO RHONCHI ABD <> SOFT / NONTENDER / NO REBOUND / NO GUARDING EXT <> NO CALF TENDERNESS. IMP: HYPER CA ++ LYMPHOMA HTN CKD HYPERLIPIDEMIA PLAN <> AWAIT BX IV FLUID RENAL FOLLOWUP.
[2016-09-10] MEDS: CYANOCOBALAMIN 1,000 MCG TABLET (FP) PO SCH (10:33)
[2016-09-10] MEDS: MAGNESIUM OXIDE 400 MG TABLET (FP) PO SCH ×2 (10:33→22:09)
[2016-09-10] MEDS: METOPROLOL SUCCINATE 50 MG TAB.SR.24H (FP) PO SCH (10:33)
[2016-09-10] MEDS: amLODIPine BESYLATE 5 MG TABLET (FP) PO SCH (10:33)
[2016-09-10] MEDS: TAMSULOSIN HCL 0.4 MG CAP.ER.24H (FP) PO SCH (10:33)
[2016-09-10] MEDS: POTASSIUM CHLORIDE TABS 10 MEQ TABLET.ER (FP) PO SCH (10:33)
--- NOTE | 2016-09-10 15:24 | PN ---
Progress Note, Physician History of Present Illness: Pt seen and examined at bedside. He is awake and alert. He denies shortness of breath. - Current Medication List Current Medications: Active Medications Acetaminophen (Tylenol -) 650 mg PO Q4H PRN PRN Reason: FEVER OR PAIN Last Admin: 08/31/16 20:03 Dose: 650 mg Amlodipine Besylate (Norvasc -) 5 mg PO DAILY [facility] Last Admin: 09/10/16 10:33 Dose: 5 mg Atorvastatin Calcium (Lipitor -) 10 mg PO HS [facility] Last Admin: 09/09/16 21:02 Dose: 10 mg Calcitonin (Miacalcin Injection -) 250 unit SQ DAILY [facility] Last Admin: 09/09/16 09:37 Dose: Not Given Cyanocobalamin (Vitamin B12 -) 2,500 mcg PO DAILY [facility] Last Admin: 09/10/16 10:33 Dose: 2,500 mcg Heparin Sodium (Porcine) (Heparin -) 5,000 unit SQ TID [facility] Last Admin: 09/10/16 15:08 Dose: Not Given Sodium Chloride (Normal Saline -) 1,000 mls @ 150 mls/hr IV ASDIR [facility] Last Admin: 09/10/16 05:00 Dose: 150 mls/hr Lidocaine HCl (Xylocaine 2% Jelly) 1 applic TP BID PRN PRN Reason: PAIN Last Admin: 09/01/16 22:09 Dose: 1 applic Magnesium Oxide (Mag-Ox -) 400 mg PO BID [facility] Last Admin: 09/10/16 10:33 Dose: 400 mg Meclizine HCl (Antivert -) 25 mg PO Q6H PRN PRN Reason: VERTIGO Metoprolol Succinate (Toprol Xl -) 50 mg PO DAILY [facility] Last Admin: 09/10/16 10:33 Dose: 50 mg Ondansetron HCl (Zofran Injection) 4 mg IVPB Q6H PRN PRN Reason: NAUSEA Potassium Chloride (K-Dur -) 20 meq PO DAILY [facility] Last Admin: 09/10/16 10:33 Dose: 20 meq Tamsulosin HCl (Flomax -) 0.4 mg PO DAILY@0830 [facility] Last Admin: 09/10/16 10:33 Dose: 0.4 mg - Objective Vital Signs: Vital Signs Temperature 99.2 F 09/10/16 07:05 Pulse Rate 72 09/10/16 11:00 Respiratory Rate 18 09/10/16 11:00 Blood Pressure 124/64 09/10/16 11:00 O2 Sat by Pulse Oximetry (%) 100 09/09/16 20:10 Constitutional: Yes: Calm Eyes: Yes: Conjunctiva Clear HENT: Yes: Atraumatic Neck: Yes: Supple Cardiovascular: Yes: Regular Rate and Rhythm, S1, S2 Respiratory: Yes: CTA Bilaterally Gastrointestinal: Yes: Normal Bowel Sounds, Soft Genitourinary: Yes: WNL Extremities: Yes: WNL Edema: No Neurological: Yes: Oriented Psychiatric: Yes: Oriented Labs: CBC, BMP 09/10/16 05:35 09/10/16 05:35 INR, PTT INR 1.18 (0.82-1.09) H 09/09/16 06:38 Assessment/Plan Current Medications Generic Name Dose Route Start Last Admin Trade Name Freq PRN Reason Stop Dose Admin Acetaminophen 650 mg 08/26/16 21:21 08/31/16 20:03 Tylenol - PO 650 mg Q4H PRN Administration FEVER OR PAIN Amlodipine Besylate 5 mg 08/28/16 16:00 09/10/16 10:33 Norvasc - PO 5 mg DAILY [facility] Administration Atorvastatin Calcium 10 mg 08/27/16 22:00 09/09/16 21:02 Lipitor - PO 10 mg HS [facility] Administration Calcitonin 250 unit 09/08/16 12:00 09/09/16 09:37 Miacalcin Injection - SQ Not Given DAILY [facility] Cyanocobalamin 2,500 mcg 08/27/16 10:00 09/10/16 10:33 Vitamin B12 - PO 2,500 mcg DAILY [facility] Administration Heparin Sodium (Porcine) 5,000 unit 08/26/16 22:00 09/10/16 15:08 Heparin - SQ Not Given TID [facility] Sodium Chloride 1,000 mls @ 150 mls/hr 09/06/16 14:25 09/10/16 05:00 Normal Saline - IV 150 mls/hr ASDIR [facility] Administration Lidocaine HCl 1 applic 09/01/16 19:03 09/01/16 22:09 Xylocaine 2% Jelly TP 1 applic BID PRN Administration PAIN Magnesium Oxide 400 mg 08/31/16 22:00 09/10/16 10:33 Mag-Ox - PO 400 mg BID [facility] Administration Meclizine HCl 25 mg 08/27/16 15:35 Antivert - PO Q6H PRN VERTIGO Metoprolol Succinate 50 mg 08/27/16 10:00 09/10/16 10:33 Toprol Xl - PO 50 mg DAILY [facility] Administration Ondansetron HCl 4 mg 09/03/16 18:52 Zofran Injection IVPB Q6H PRN NAUSEA Potassium Chloride 20 meq 09/08/16 11:30 09/10/16 10:33 K-Dur - PO 20 meq DAILY [facility] Administration Tamsulosin HCl 0.4 mg 09/04/16 12:45 09/10/16 10:33 Flomax - PO 0.4 mg DAILY@0830 [facility] Administration Impression 1. Hypercalcemia 2. CAD 3. HTN 4. Chol 5. hx leukemia 6. JEROMY 7. bilateral hydro 8. hypokalemia 9. hypomagnesemia Plan - follow up biopsy - replace mag - calcium is improving - follup up vt d levels - cont fluids - give lasix of he developes overload - renal function is stabilizing - PTH is low which was expected - will follow Dr Hopper
[2016-09-10] MEDS ORDERED: POLYETHYLENE GLYCOL 3350 119 GM BTL PO ONE (15:39)
[2016-09-10] MEDS ORDERED: POTASSIUM CHLORIDE TABS 20 MEQ TABLET.ER (FP) PO ONE (15:50)
[2016-09-10] MEDS ORDERED: MAGNESIUM SULF 50% (8.12 MEQ/2 ML-1 GM VIAL) IVPB ONE (15:50)
[2016-09-10] MEDS: CALCITONIN - SALMON SYNTHETIC 400 UNIT/2 ML VIAL SQ SCH (18:58)
[2016-09-10] MEDS: ATORVASTATIN CA 10 MG TABLET (FP) PO SCH (22:09)
[2016-09-11] MEDS: SODIUM CHLORIDE 1,000 ML IV SCH ×3 (00:36→19:30)
[2016-09-11] MEDS: HEPARIN NA (PORCINE) 5,000 UNITS/ML 1ML VIAL SQ SCH ×2 (06:09→21:48)
[2016-09-11 07:25] LABS: BASOPHIL 0.6 % (0-2.0); EOSINOPHIL 2.9 % (0-4.5); MCH 29.6 pg (25.7-33.7); MEAN CELL VOLUME 86.8 fl (80-96); NEUTROPHILS 51.4 % (42.8-82.8); PLATELET COUNT 219 K/MM3 (134-434); RDW 14.8 % (11.9-15.9); WHITE BLOOD COUNT 7.2 K/mm3 (4.0-10.0)
[2016-09-11 08:03] LABS: BILIRUBIN,TOTAL 0.5 mg/dL (0.2-1.0); CALCIUM 10.6 mg/dL (8.5-10.1); CREATININE 1.3 mg/dL (0.7-1.3); TOT PROT 5.7 g/dl (6.4-8.2)
[2016-09-11] MEDS: METOPROLOL SUCCINATE 50 MG TAB.SR.24H (FP) PO SCH (10:25)
[2016-09-11] MEDS: amLODIPine BESYLATE 5 MG TABLET (FP) PO SCH (10:25)
[2016-09-11] MEDS: TAMSULOSIN HCL 0.4 MG CAP.ER.24H (FP) PO SCH (10:25)
[2016-09-11] MEDS: POTASSIUM CHLORIDE TABS 10 MEQ TABLET.ER (FP) PO SCH (10:25)
[2016-09-11] MEDS: CYANOCOBALAMIN 1,000 MCG TABLET (FP) PO SCH (10:25)
[2016-09-11] MEDS: MAGNESIUM OXIDE 400 MG TABLET (FP) PO SCH ×2 (10:25→21:48)
[2016-09-11] MEDS: CALCITONIN - SALMON SYNTHETIC 400 UNIT/2 ML VIAL SQ SCH ×2 (11:50→22:40)
--- NOTE | 2016-09-11 12:42 | PN ---
Progress Note, Physician History of Present Illness: Pt seen and examined at bedside. He is awake and alert. He denies shortness of breath. - Current Medication List Current Medications: Active Medications Acetaminophen (Tylenol -) 650 mg PO Q4H PRN PRN Reason: FEVER OR PAIN Last Admin: 08/31/16 20:03 Dose: 650 mg Amlodipine Besylate (Norvasc -) 5 mg PO DAILY [facility] Last Admin: 09/11/16 10:25 Dose: 5 mg Atorvastatin Calcium (Lipitor -) 10 mg PO HS [facility] Last Admin: 09/10/16 22:09 Dose: 10 mg Cyanocobalamin (Vitamin B12 -) 2,500 mcg PO DAILY [facility] Last Admin: 09/11/16 10:25 Dose: 2,500 mcg Heparin Sodium (Porcine) (Heparin -) 5,000 unit SQ TID [facility] Last Admin: 09/11/16 06:09 Dose: 5,000 unit Sodium Chloride (Normal Saline -) 1,000 mls @ 150 mls/hr IV ASDIR [facility] Last Admin: 09/11/16 06:09 Dose: 150 mls/hr Lidocaine HCl (Xylocaine 2% Jelly) 1 applic TP BID PRN PRN Reason: PAIN Last Admin: 09/01/16 22:09 Dose: 1 applic Magnesium Oxide (Mag-Ox -) 400 mg PO BID [facility] Last Admin: 09/11/16 10:25 Dose: 400 mg Meclizine HCl (Antivert -) 25 mg PO Q6H PRN PRN Reason: VERTIGO Metoprolol Succinate (Toprol Xl -) 50 mg PO DAILY [facility] Last Admin: 09/11/16 10:25 Dose: 50 mg Ondansetron HCl (Zofran Injection) 4 mg IVPB Q6H PRN PRN Reason: NAUSEA Potassium Chloride (K-Dur -) 20 meq PO DAILY [facility] Last Admin: 09/11/16 10:25 Dose: 20 meq Tamsulosin HCl (Flomax -) 0.4 mg PO DAILY@0830 [facility] Last Admin: 09/11/16 10:25 Dose: 0.4 mg - Objective Vital Signs: Vital Signs Temperature 98.8 F 09/11/16 06:00 Pulse Rate 66 09/11/16 10:00 Respiratory Rate 18 09/11/16 10:00 Blood Pressure 130/70 09/11/16 10:00 O2 Sat by Pulse Oximetry (%) 100 09/10/16 22:00 Constitutional: Yes: Calm Eyes: Yes: Conjunctiva Clear HENT: Yes: Atraumatic Neck: Yes: Supple Cardiovascular: Yes: S1, S2 Respiratory: Yes: CTA Bilaterally Gastrointestinal: Yes: Soft Genitourinary: Yes: WNL Musculoskeletal: Yes: WNL Edema: No Neurological: Yes: Oriented Psychiatric: Yes: Oriented Labs: CBC, BMP 09/11/16 05:38 09/11/16 05:38 INR, PTT INR 1.18 (0.82-1.09) H 09/09/16 06:38 Assessment/Plan Current Medications Generic Name Dose Route Start Last Admin Trade Name Freq PRN Reason Stop Dose Admin Acetaminophen 650 mg 08/26/16 21:21 08/31/16 20:03 Tylenol - PO 650 mg Q4H PRN Administration FEVER OR PAIN Amlodipine Besylate 5 mg 08/28/16 16:00 09/11/16 10:25 Norvasc - PO 5 mg DAILY [facility] Administration Atorvastatin Calcium 10 mg 08/27/16 22:00 09/10/16 22:09 Lipitor - PO 10 mg HS [facility] Administration Cyanocobalamin 2,500 mcg 08/27/16 10:00 09/11/16 10:25 Vitamin B12 - PO 2,500 mcg DAILY [facility] Administration Heparin Sodium (Porcine) 5,000 unit 08/26/16 22:00 09/11/16 06:09 Heparin - SQ 5,000 unit TID [facility] Administration Sodium Chloride 1,000 mls @ 150 mls/hr 09/06/16 14:25 09/11/16 06:09 Normal Saline - IV 150 mls/hr ASDIR [facility] Administration Lidocaine HCl 1 applic 09/01/16 19:03 09/01/16 22:09 Xylocaine 2% Jelly TP 1 applic BID PRN Administration PAIN Magnesium Oxide 400 mg 08/31/16 22:00 09/11/16 10:25 Mag-Ox - PO 400 mg BID [facility] Administration Meclizine HCl 25 mg 08/27/16 15:35 Antivert - PO Q6H PRN VERTIGO Metoprolol Succinate 50 mg 08/27/16 10:00 09/11/16 10:25 Toprol Xl - PO 50 mg DAILY [facility] Administration Ondansetron HCl 4 mg 09/03/16 18:52 Zofran Injection IVPB Q6H PRN NAUSEA Potassium Chloride 20 meq 09/08/16 11:30 09/11/16 10:25 K-Dur - PO 20 meq DAILY [facility] Administration Tamsulosin HCl 0.4 mg 09/04/16 12:45 09/11/16 10:25 Flomax - PO 0.4 mg DAILY@0830 [facility] Administration Impression 1. Hypercalcemia 2. CAD 3. HTN 4. Chol 5. hx leukemia 6. JEROMY 7. bilateral hydro 8. hypokalemia 9. hypomagnesemia Plan - biopsy is still pending - cont flomax, consider urology follow up for pet scan findings - will give calcitonin as calcium is elevated - oncology follow up - follup up vt d levels - cont fluids - give lasix of he develops overload - will follow Dr Hopper
--- NOTE | 2016-09-11 16:23 | PN ---
Progress Note, Physician Chief Complaint: Mr Saucedo says he is feeling well. No cp, sob, n/v. - Current Medication List Current Medications: Active Medications Acetaminophen (Tylenol -) 650 mg PO Q4H PRN PRN Reason: FEVER OR PAIN Last Admin: 08/31/16 20:03 Dose: 650 mg Amlodipine Besylate (Norvasc -) 5 mg PO DAILY [facility] Last Admin: 09/11/16 10:25 Dose: 5 mg Atorvastatin Calcium (Lipitor -) 10 mg PO HS [facility] Last Admin: 09/10/16 22:09 Dose: 10 mg Calcitonin (Miacalcin Injection -) 250 unit SQ BID [facility] Stop: 09/12/16 10:01 Cyanocobalamin (Vitamin B12 -) 2,500 mcg PO DAILY [facility] Last Admin: 09/11/16 10:25 Dose: 2,500 mcg Heparin Sodium (Porcine) (Heparin -) 5,000 unit SQ TID [facility] Last Admin: 09/11/16 06:09 Dose: 5,000 unit Sodium Chloride (Normal Saline -) 1,000 mls @ 150 mls/hr IV ASDIR [facility] Last Admin: 09/11/16 06:09 Dose: 150 mls/hr Lidocaine HCl (Xylocaine 2% Jelly) 1 applic TP BID PRN PRN Reason: PAIN Last Admin: 09/01/16 22:09 Dose: 1 applic Magnesium Oxide (Mag-Ox -) 400 mg PO BID [facility] Last Admin: 09/11/16 10:25 Dose: 400 mg Meclizine HCl (Antivert -) 25 mg PO Q6H PRN PRN Reason: VERTIGO Metoprolol Succinate (Toprol Xl -) 50 mg PO DAILY [facility] Last Admin: 09/11/16 10:25 Dose: 50 mg Ondansetron HCl (Zofran Injection) 4 mg IVPB Q6H PRN PRN Reason: NAUSEA Potassium Chloride (K-Dur -) 20 meq PO DAILY [facility] Last Admin: 09/11/16 10:25 Dose: 20 meq Tamsulosin HCl (Flomax -) 0.4 mg PO DAILY@0830 [facility] Last Admin: 09/11/16 10:25 Dose: 0.4 mg - Objective Vital Signs: Vital Signs Temperature 98.8 F 09/11/16 06:00 Pulse Rate 66 09/11/16 10:00 Respiratory Rate 18 09/11/16 10:00 Blood Pressure 130/70 09/11/16 10:00 O2 Sat by Pulse Oximetry (%) 100 09/10/16 22:00 Constitutional: Yes: Well Nourished, No Distress, Calm Cardiovascular: Yes: Regular Rate and Rhythm. No: Gallop, Murmur, Rub Respiratory: Yes: Regular, CTA Bilaterally. No: Rales, Rhonchi, Wheezes Gastrointestinal: Yes: Normal Bowel Sounds, Soft. No: Distention, Tenderness Extremities: Yes: WNL Edema: No Labs: CBC, BMP 09/11/16 05:38 09/11/16 05:38 INR, PTT INR 1.18 (0.82-1.09) H 09/09/16 06:38 Problem List - Problems (1) Hypercalcemia Code(s): E83.52 - HYPERCALCEMIA (2) Abdominal pain Code(s): R10.9 - UNSPECIFIED ABDOMINAL PAIN (3) CAD (coronary artery disease) Code(s): I25.10 - ATHSCL HEART DISEASE OF [place] CORONARY ARTERY W/O ANG PCTRS (4) HTN (hypertension) Code(s): I10 - ESSENTIAL (PRIMARY) HYPERTENSION (5) HLD (hyperlipidemia) Code(s): E78.5 - HYPERLIPIDEMIA, UNSPECIFIED Assessment/Plan (1) Hypercalcemia Assessment/Plan: -nephrology following -nephrology to give calcitonin -monitor Code(s): E83.52 - HYPERCALCEMIA (2) Abdominal pain Assessment/Plan: -resolved Code(s): R10.9 - UNSPECIFIED ABDOMINAL PAIN (3) CKD Assessment/Plan: -at baseline -continue to monitor -bone scan noted -will d/w urology possible need for stents Code(s): N17.9 - ACUTE KIDNEY FAILURE, UNSPECIFIED (4) CAD (coronary artery disease) Assessment/Plan: -stable -continue statin and toprol xl -can restart aspirin once no further procedures are needed Code(s): I25.10 - ATHSCL HEART DISEASE OF [place] CORONARY ARTERY W/O ANG PCTRS (5) HTN (hypertension) Assessment/Plan: -continue toprol and amlodipine Code(s): I10 - ESSENTIAL (PRIMARY) HYPERTENSION (6) HLD (hyperlipidemia) Assessment/Plan: -continue statin Code(s): E78.5 - HYPERLIPIDEMIA, UNSPECIFIED (7) CLL -awaiting biopsy results (8) Fevers -resolved -currently off antibiotics
[2016-09-11] MEDS: ATORVASTATIN CA 10 MG TABLET (FP) PO SCH (21:48)
[2016-09-12] MEDS: SODIUM CHLORIDE 1,000 ML IV SCH ×4 (03:27→19:41)
[2016-09-12] MEDS: HEPARIN NA (PORCINE) 5,000 UNITS/ML 1ML VIAL SQ SCH ×3 (05:37→21:13)
[2016-09-12 07:37] LABS: ALBUMIN 3.2 g/dl (3.4-5.0); BILIRUBIN,TOTAL 0.6 mg/dL (0.2-1.0); CALCIUM 10.5 mg/dL (8.5-10.1); CREATININE 1.5 mg/dL (0.7-1.3); MAGNESIUM 1.5 mg/dL (1.8-2.4); TOT PROT 6.2 g/dl (6.4-8.2)
[2016-09-12] MEDS: amLODIPine BESYLATE 5 MG TABLET (FP) PO SCH (09:59)
[2016-09-12] MEDS: METOPROLOL SUCCINATE 50 MG TAB.SR.24H (FP) PO SCH (09:59)
[2016-09-12] MEDS: CYANOCOBALAMIN 1,000 MCG TABLET (FP) PO SCH (09:59)
[2016-09-12] MEDS: MAGNESIUM OXIDE 400 MG TABLET (FP) PO SCH ×2 (09:59→21:12)
[2016-09-12] MEDS: TAMSULOSIN HCL 0.4 MG CAP.ER.24H (FP) PO SCH (09:59)
[2016-09-12] MEDS: POTASSIUM CHLORIDE TABS 10 MEQ TABLET.ER (FP) PO SCH (09:59)
[2016-09-12] MEDS: CALCITONIN - SALMON SYNTHETIC 400 UNIT/2 ML VIAL SQ SCH (10:44)
[2016-09-12] MEDS ORDERED: POTASSIUM CHLORIDE TABS 20 MEQ TABLET.ER (FP) PO ONE ×2 (12:39→18:00)
[2016-09-12] MEDS ORDERED: MAGNESIUM SULF 50% (8.12 MEQ/2 ML-1 GM VIAL) IVPB ONE (12:39)
--- NOTE | 2016-09-12 12:40 | PN ---
Progress Note, Physician Chief Complaint: Mr Saucedo says he is feeling well. No cp, sob, n/v. - Current Medication List Current Medications: Active Medications Acetaminophen (Tylenol -) 650 mg PO Q4H PRN PRN Reason: FEVER OR PAIN Last Admin: 08/31/16 20:03 Dose: 650 mg Amlodipine Besylate (Norvasc -) 5 mg PO DAILY [facility] Last Admin: 09/12/16 09:59 Dose: 5 mg Atorvastatin Calcium (Lipitor -) 10 mg PO HS [facility] Last Admin: 09/11/16 21:48 Dose: 10 mg Cyanocobalamin (Vitamin B12 -) 2,500 mcg PO DAILY [facility] Last Admin: 09/12/16 09:59 Dose: 2,500 mcg Heparin Sodium (Porcine) (Heparin -) 5,000 unit SQ TID [facility] Last Admin: 09/12/16 05:37 Dose: 5,000 unit Sodium Chloride (Normal Saline -) 1,000 mls @ 150 mls/hr IV ASDIR [facility] Last Admin: 09/12/16 10:00 Dose: 150 mls/hr Lidocaine HCl (Xylocaine 2% Jelly) 1 applic TP BID PRN PRN Reason: PAIN Last Admin: 09/01/16 22:09 Dose: 1 applic Magnesium Oxide (Mag-Ox -) 400 mg PO BID [facility] Last Admin: 09/12/16 09:59 Dose: 400 mg Magnesium Sulfate (Magnesium Sulfate) 2 gm IVPB ONCE ONE Stop: 09/12/16 12:40 Meclizine HCl (Antivert -) 25 mg PO Q6H PRN PRN Reason: VERTIGO Metoprolol Succinate (Toprol Xl -) 50 mg PO DAILY [facility] Last Admin: 09/12/16 09:59 Dose: 50 mg Ondansetron HCl (Zofran Injection) 4 mg IVPB Q6H PRN PRN Reason: NAUSEA Potassium Chloride (K-Dur -) 20 meq PO DAILY [facility] Last Admin: 09/12/16 09:59 Dose: 20 meq Potassium Chloride (K-Dur -) 40 meq PO ONCE ONE Stop: 09/12/16 12:40 Tamsulosin HCl (Flomax -) 0.4 mg PO DAILY@0830 [facility] Last Admin: 09/12/16 09:59 Dose: 0.4 mg - Objective Vital Signs: Vital Signs Temperature 98.1 F 09/12/16 08:00 Pulse Rate 84 09/12/16 08:00 Respiratory Rate 20 09/12/16 08:00 Blood Pressure 138/72 09/12/16 08:00 O2 Sat by Pulse Oximetry (%) 97 09/12/16 08:00 Constitutional: Yes: Well Nourished, No Distress, Calm Cardiovascular: Yes: Regular Rate and Rhythm. No: Gallop, Murmur, Rub Respiratory: Yes: Regular, CTA Bilaterally. No: Rales, Rhonchi, Wheezes Gastrointestinal: Yes: Normal Bowel Sounds, Soft. No: Distention, Tenderness Extremities: Yes: WNL Edema: No Labs: CBC, BMP 09/11/16 05:38 09/12/16 06:30 INR, PTT INR 1.18 (0.82-1.09) H 09/09/16 06:38 Problem List - Problems (1) Hypercalcemia Code(s): E83.52 - HYPERCALCEMIA (2) Abdominal pain Code(s): R10.9 - UNSPECIFIED ABDOMINAL PAIN (3) CAD (coronary artery disease) Code(s): I25.10 - ATHSCL HEART DISEASE OF [place] CORONARY ARTERY W/O ANG PCTRS (4) HTN (hypertension) Code(s): I10 - ESSENTIAL (PRIMARY) HYPERTENSION (5) HLD (hyperlipidemia) Code(s): E78.5 - HYPERLIPIDEMIA, UNSPECIFIED Assessment/Plan (1) Hypercalcemia Assessment/Plan: -nephrology following and case discussed -nephrology giving calcitonin and lasix -continue to monitor Code(s): E83.52 - HYPERCALCEMIA (2) Abdominal pain Assessment/Plan: -resolved Code(s): R10.9 - UNSPECIFIED ABDOMINAL PAIN (3) CKD Assessment/Plan: -at baseline -continue to monitor -bone scan noted -d/w urology, currently no need for intervention at this time Code(s): N17.9 - ACUTE KIDNEY FAILURE, UNSPECIFIED (4) CAD (coronary artery disease) Assessment/Plan: -stable -continue statin and toprol xl -will await biopsy results before restarting aspiring Code(s): I25.10 - ATHSCL HEART DISEASE OF [place] CORONARY ARTERY W/O ANG PCTRS (5) HTN (hypertension) Assessment/Plan: -continue toprol and amlodipine Code(s): I10 - ESSENTIAL (PRIMARY) HYPERTENSION (6) HLD (hyperlipidemia) Assessment/Plan: -continue statin Code(s): E78.5 - HYPERLIPIDEMIA, UNSPECIFIED (7) CLL -preliminary biopsy results showing CLL with possible conversion -Dr Mcleod contacted and will see to evaluate for treatment -hypercalcemia secondary to malignancy (8) Fevers -resolved -currently off antibiotics
--- NOTE | 2016-09-12 13:30 | PN ---
Progress Note, Physician History of Present Illness: Pt seen and examined at bedside. He is awake and alert. He denies shortness of breath. - Current Medication List Current Medications: Active Medications Acetaminophen (Tylenol -) 650 mg PO Q4H PRN PRN Reason: FEVER OR PAIN Last Admin: 08/31/16 20:03 Dose: 650 mg Amlodipine Besylate (Norvasc -) 5 mg PO DAILY [facility] Last Admin: 09/12/16 09:59 Dose: 5 mg Atorvastatin Calcium (Lipitor -) 10 mg PO HS [facility] Last Admin: 09/11/16 21:48 Dose: 10 mg Cyanocobalamin (Vitamin B12 -) 2,500 mcg PO DAILY [facility] Last Admin: 09/12/16 09:59 Dose: 2,500 mcg Heparin Sodium (Porcine) (Heparin -) 5,000 unit SQ TID [facility] Last Admin: 09/12/16 05:37 Dose: 5,000 unit Sodium Chloride (Normal Saline -) 1,000 mls @ 150 mls/hr IV ASDIR [facility] Last Admin: 09/12/16 10:00 Dose: 150 mls/hr Lidocaine HCl (Xylocaine 2% Jelly) 1 applic TP BID PRN PRN Reason: PAIN Last Admin: 09/01/16 22:09 Dose: 1 applic Magnesium Oxide (Mag-Ox -) 400 mg PO BID [facility] Last Admin: 09/12/16 09:59 Dose: 400 mg Meclizine HCl (Antivert -) 25 mg PO Q6H PRN PRN Reason: VERTIGO Metoprolol Succinate (Toprol Xl -) 50 mg PO DAILY [facility] Last Admin: 09/12/16 09:59 Dose: 50 mg Ondansetron HCl (Zofran Injection) 4 mg IVPB Q6H PRN PRN Reason: NAUSEA Potassium Chloride (K-Dur -) 20 meq PO DAILY [facility] Last Admin: 09/12/16 09:59 Dose: 20 meq Tamsulosin HCl (Flomax -) 0.4 mg PO DAILY@0830 [facility] Last Admin: 09/12/16 09:59 Dose: 0.4 mg - Objective Vital Signs: Vital Signs Temperature 98.1 F 09/12/16 08:00 Pulse Rate 84 09/12/16 08:00 Respiratory Rate 20 09/12/16 08:00 Blood Pressure 138/72 09/12/16 08:00 O2 Sat by Pulse Oximetry (%) 97 09/12/16 08:00 Constitutional: Yes: Calm Eyes: Yes: Conjunctiva Clear HENT: Yes: Atraumatic Neck: Yes: Supple Cardiovascular: Yes: S1, S2 Respiratory: Yes: CTA Bilaterally Gastrointestinal: Yes: Normal Bowel Sounds, Soft Genitourinary: Yes: WNL Musculoskeletal: Yes: WNL Extremities: Yes: WNL Edema: No Neurological: Yes: Oriented Psychiatric: Yes: Oriented Labs: CBC, BMP 09/11/16 05:38 09/12/16 06:30 INR, PTT INR 1.18 (0.82-1.09) H 09/09/16 06:38 Assessment/Plan Current Medications Generic Name Dose Route Start Last Admin Trade Name Freq PRN Reason Stop Dose Admin Acetaminophen 650 mg 08/26/16 21:21 08/31/16 20:03 Tylenol - PO 650 mg Q4H PRN Administration FEVER OR PAIN Amlodipine Besylate 5 mg 08/28/16 16:00 09/12/16 09:59 Norvasc - PO 5 mg DAILY [facility] Administration Atorvastatin Calcium 10 mg 08/27/16 22:00 09/11/16 21:48 Lipitor - PO 10 mg HS [facility] Administration Cyanocobalamin 2,500 mcg 08/27/16 10:00 09/12/16 09:59 Vitamin B12 - PO 2,500 mcg DAILY [facility] Administration Heparin Sodium (Porcine) 5,000 unit 08/26/16 22:00 09/12/16 05:37 Heparin - SQ 5,000 unit TID [facility] Administration Sodium Chloride 1,000 mls @ 150 mls/hr 09/06/16 14:25 09/12/16 10:00 Normal Saline - IV 150 mls/hr ASDIR [facility] Administration Lidocaine HCl 1 applic 09/01/16 19:03 09/01/16 22:09 Xylocaine 2% Jelly TP 1 applic BID PRN Administration PAIN Magnesium Oxide 400 mg 08/31/16 22:00 09/12/16 09:59 Mag-Ox - PO 400 mg BID [facility] Administration Meclizine HCl 25 mg 08/27/16 15:35 Antivert - PO Q6H PRN VERTIGO Metoprolol Succinate 50 mg 08/27/16 10:00 09/12/16 09:59 Toprol Xl - PO 50 mg DAILY [facility] Administration Ondansetron HCl 4 mg 09/03/16 18:52 Zofran Injection IVPB Q6H PRN NAUSEA Potassium Chloride 20 meq 09/08/16 11:30 09/12/16 09:59 K-Dur - PO 20 meq DAILY [facility] Administration Tamsulosin HCl 0.4 mg 09/04/16 12:45 09/12/16 09:59 Flomax - PO 0.4 mg DAILY@0830 [facility] Administration Impression 1. Hypercalcemia 2. CAD 3. HTN 4. Chol 5. hx leukemia 6. JEROMY 7. bilateral hydro 8. hypokalemia 9. hypomagnesemia Plan - follow up biopsy - calcium still mildly elevated - oncology follow up - cont flomax, consider urology follow up for pet scan findings - will give calcitonin as calcium is elevated - follup up vt d levels - replace potassium - will follow Dr Hopper
[2016-09-12] MEDS ORDERED: FUROSEMIDE 20 MG TABLET (FP) PO ONE (14:45)
[2016-09-12] MEDS: ATORVASTATIN CA 10 MG TABLET (FP) PO SCH (21:12)
[2016-09-12] MEDS ORDERED: PT OWN MED DRAWER 7, Y5N ONE (21:14)
[2016-09-12] MEDS ORDERED: CALCITONIN - SALMON SYNTHETIC 400 UNIT/2 ML VIAL SQ ONE (22:00)
[2016-09-13] MEDS: SODIUM CHLORIDE 1,000 ML IV SCH (01:34)
[2016-09-13] MEDS: HEPARIN NA (PORCINE) 5,000 UNITS/ML 1ML VIAL SQ SCH (06:00)
[2016-09-13 06:03] VITALS: PULSE 84
--- NOTE | 2016-09-13 07:48 | PN ---
Progress Note (short form) - Note Progress Note: pt seen 09/12/16 has no complaint but feels tired today PE resting,NAD lungs-CTA CVS-reg S1S2 abd-soft, NT ext-no edema Imp - NHL, P Vera and no recent intervention required for either now w hypercalcemia and ext RP LA, fever awaiting bx results treated w calcitonin, lasix, pamidronate clin stable. He will f/u in office w Dr. Mcleod if d/c home soon
[2016-09-13 08:30] LABS: BASOPHIL 0.6 % (0-2.0); EOSINOPHIL 1.7 % (0-4.5); MCH 29.4 pg (25.7-33.7); MCHC 34.1 g/dl (32.0-35.9); MEAN CELL VOLUME 86.4 fl (80-96); MEAN PLT VOLUME 7.2 fl (7.5-11.1); NEUTROPHILS 62.5 % (42.8-82.8); PLATELET COUNT 208 K/MM3 (134-434); RDW 15.1 % (11.9-15.9); WHITE BLOOD COUNT 8.1 K/mm3 (4.0-10.0)
[2016-09-13 08:48] LABS: CALCIUM 10.2 mg/dL (8.5-10.1); MAGNESIUM 1.5 mg/dL (1.8-2.4)
[2016-09-13 08:50] LABS: CREATININE 1.4 mg/dL (0.7-1.3); PHOSPHOROUS 2.4 mg/dL (2.5-4.9)
[2016-09-13] MEDS: POTASSIUM CHLORIDE TABS 10 MEQ TABLET.ER (FP) PO SCH (09:38)
[2016-09-13] MEDS: amLODIPine BESYLATE 5 MG TABLET (FP) PO SCH (09:39)
[2016-09-13] MEDS: METOPROLOL SUCCINATE 50 MG TAB.SR.24H (FP) PO SCH (09:39)
[2016-09-13] MEDS: CYANOCOBALAMIN 1,000 MCG TABLET (FP) PO SCH (09:39)
[2016-09-13] MEDS: MAGNESIUM OXIDE 400 MG TABLET (FP) PO SCH (09:39)
[2016-09-13] MEDS: TAMSULOSIN HCL 0.4 MG CAP.ER.24H (FP) PO SCH (09:39)
[2016-09-13 11:06] VITALS: BP 135/83; TEMP 98.2
--- NOTE | 2016-09-13 12:14 | DS ---
Physical Examination Vital Signs: Vital Signs Temperature 98.2 F 09/13/16 08:00 Pulse Rate 84 09/13/16 08:00 Respiratory Rate 20 09/13/16 08:00 Blood Pressure 135/83 09/13/16 08:00 O2 Sat by Pulse Oximetry (%) 96 09/13/16 08:00 Constitutional: Yes: Well Nourished, No Distress, Calm Cardiovascular: Yes: Regular Rate and Rhythm. No: Gallop, Murmur, Rub Respiratory: Yes: Regular, CTA Bilaterally. No: Rales, Rhonchi, Wheezes Gastrointestinal: Yes: Normal Bowel Sounds, Soft. No: Distention, Tenderness Extremities: Yes: WNL Edema: No Labs: CBC, BMP 09/13/16 07:00 09/13/16 07:00 Discharge Summary Reason For Visit: HYPERCALCEMIA Current Active Problems JEROMY (acute kidney injury) (Acute) Abdominal pain (Acute) CAD (coronary artery disease) (Acute) HLD (hyperlipidemia) (Acute) HTN (hypertension) (Acute) Hypercalcemia (Acute) Hospital Course: (1) Hypercalcemia Code(s): E83.52 - HYPERCALCEMIA (2) Abdominal pain Code(s): R10.9 - UNSPECIFIED ABDOMINAL PAIN (3) CKD Code(s): N17.9 - ACUTE KIDNEY FAILURE, UNSPECIFIED (4) CAD (coronary artery disease) Code(s): I25.10 - ATHSCL HEART DISEASE OF [place] CORONARY ARTERY W/O ANG PCTRS (5) HTN (hypertension) Code(s): I10 - ESSENTIAL (PRIMARY) HYPERTENSION (6) HLD (hyperlipidemia) Code(s): E78.5 - HYPERLIPIDEMIA, UNSPECIFIED (7) CLL (8) Fevers Mr Saucedo is a very pleasant 76 year old male who comes in with symptomatic hypercalcemia. He was admitted to the hospital and was also found to have JEROMY on CKD. Nephrology was consulted and he was hydrated. Oncology was also consulted as there was concern this was hyercalcemia of malignancy. He underwent abdominal MRI for abdominal pain and was found to have abdominal lymphadenopathy with hydronephrosis. Urology was consulted, felt stents were not needed at this time. He continued to have elevated calcium and was given pamidronate and calcitonin. 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 He is to be put on prednisone and discharged with close follow up. 35 minutes spent in preparation of this discharge Condition: Good - Instructions Diet, Activity, Other Instructions: resume previous diet and activity Referrals: Jamel Love MD [Primary Care Provider] - Fuentes Mcleod MD [Staff Physician] - Kathia Hopper MD [Staff Physician] - Disposition: HOME - Home Medications Comprehensive Discharge Medication List: Ambulatory Orders Aspirin [ASA -] 81 mg PO DAILY 05/07/13 Pravastatin Sodium [Pravachol -] 20 mg PO HS 05/10/13 Silodosin [Rapaflo] 8 mg PO HS 05/10/13 Cholecalciferol (Vitamin D3) [Vitamin D -] 400 unit PO DAILY 09/28/15 Cyanocobalamin (Vitamin B-12) [Vitamin B12] 2,500 mcg PO DAILY 09/28/15 Metoprolol Succinate [Toprol Xl] 50 mg PO DAILY 09/28/15 Amlodipine Besylate [Norvasc -] 5 mg PO DAILY #30 tablet 09/13/16 Magnesium Oxide [Mag-Ox -] 400 mg PO BID #60 tablet 09/13/16 Meclizine HCl [Antivert -] 25 mg PO Q6H PRN #30 tablet 09/13/16 Potassium Chloride [K-Dur -] 20 meq PO DAILY #60 tablet.er 09/13/16 Prednisone [Deltasone] 40 mg PO DAILY #30 tablet 09/13/16 Tamsulosin HCl [Flomax -] 0.4 mg PO DAILY@0830 #30 cap.er.24h 09/13/16
--- NOTE | 2016-09-13 12:15 | PN ---
Progress Note, Physician History of Present Illness: Pt seen and examined at bedside. He is awake and alert. He denies shortness of breath. He is awake and alert. He is eager to go home. - Current Medication List Current Medications: Active Medications Acetaminophen (Tylenol -) 650 mg PO Q4H PRN PRN Reason: FEVER OR PAIN Last Admin: 08/31/16 20:03 Dose: 650 mg Amlodipine Besylate (Norvasc -) 5 mg PO DAILY [facility] Last Admin: 09/13/16 09:39 Dose: 5 mg Atorvastatin Calcium (Lipitor -) 10 mg PO HS [facility] Last Admin: 09/12/16 21:12 Dose: 10 mg Cyanocobalamin (Vitamin B12 -) 2,500 mcg PO DAILY [facility] Last Admin: 09/13/16 09:39 Dose: 2,500 mcg Heparin Sodium (Porcine) (Heparin -) 5,000 unit SQ TID [facility] Last Admin: 09/12/16 21:13 Dose: 5,000 unit Sodium Chloride (Normal Saline -) 1,000 mls @ 150 mls/hr IV ASDIR [facility] Last Admin: 09/13/16 01:34 Dose: 150 mls/hr Lidocaine HCl (Xylocaine 2% Jelly) 1 applic TP BID PRN PRN Reason: PAIN Last Admin: 09/01/16 22:09 Dose: 1 applic Magnesium Oxide (Mag-Ox -) 400 mg PO BID [facility] Last Admin: 09/13/16 09:39 Dose: 400 mg Meclizine HCl (Antivert -) 25 mg PO Q6H PRN PRN Reason: VERTIGO Metoprolol Succinate (Toprol Xl -) 50 mg PO DAILY [facility] Last Admin: 09/13/16 09:39 Dose: 50 mg Ondansetron HCl (Zofran Injection) 4 mg IVPB Q6H PRN PRN Reason: NAUSEA Potassium Chloride (K-Dur -) 20 meq PO DAILY [facility] Last Admin: 09/13/16 09:38 Dose: 20 meq Tamsulosin HCl (Flomax -) 0.4 mg PO DAILY@0830 [facility] Last Admin: 09/13/16 09:39 Dose: 0.4 mg - Objective Vital Signs: Vital Signs Temperature 98.2 F 09/13/16 08:00 Pulse Rate 84 09/13/16 08:00 Respiratory Rate 20 09/13/16 08:00 Blood Pressure 135/83 09/13/16 08:00 O2 Sat by Pulse Oximetry (%) 96 09/13/16 08:00 Constitutional: Yes: Calm Eyes: Yes: Conjunctiva Clear HENT: Yes: Atraumatic Neck: Yes: Supple Cardiovascular: Yes: S1, S2 Respiratory: Yes: CTA Bilaterally Gastrointestinal: Yes: Soft Genitourinary: Yes: WNL Extremities: Yes: WNL Edema: No Integumentary: Yes: WNL Neurological: Yes: Oriented Psychiatric: Yes: Oriented Labs: CBC, BMP 09/13/16 07:00 09/13/16 07:00 INR, PTT INR 1.18 (0.82-1.09) H 09/09/16 06:38 Assessment/Plan Current Medications Generic Name Dose Route Start Last Admin Trade Name Freq PRN Reason Stop Dose Admin Acetaminophen 650 mg 08/26/16 21:21 08/31/16 20:03 Tylenol - PO 650 mg Q4H PRN Administration FEVER OR PAIN Amlodipine Besylate 5 mg 08/28/16 16:00 09/13/16 09:39 Norvasc - PO 5 mg DAILY [facility] Administration Atorvastatin Calcium 10 mg 08/27/16 22:00 09/12/16 21:12 Lipitor - PO 10 mg HS [facility] Administration Cyanocobalamin 2,500 mcg 08/27/16 10:00 09/13/16 09:39 Vitamin B12 - PO 2,500 mcg DAILY [facility] Administration Heparin Sodium (Porcine) 5,000 unit 08/26/16 22:00 09/12/16 21:13 Heparin - SQ 5,000 unit TID [facility] Administration Sodium Chloride 1,000 mls @ 150 mls/hr 09/06/16 14:25 09/13/16 01:34 Normal Saline - IV 150 mls/hr ASDIR [facility] Administration Lidocaine HCl 1 applic 09/01/16 19:03 09/01/16 22:09 Xylocaine 2% Jelly TP 1 applic BID PRN Administration PAIN Magnesium Oxide 400 mg 08/31/16 22:00 09/13/16 09:39 Mag-Ox - PO 400 mg BID FREDY Administration Meclizine HCl 25 mg 08/27/16 15:35 Antivert - PO Q6H PRN VERTIGO Metoprolol Succinate 50 mg 08/27/16 10:00 02/17/17 09:39 Toprol Xl - PO 50 mg DAILY FREDY Administration Ondansetron HCl 4 mg 09/03/16 18:52 Zofran Injection IVPB Q6H PRN NAUSEA Potassium Chloride 20 meq 09/08/16 11:30 09/13/16 09:38 K-Dur - PO 20 meq DAILY FREDY Administration Tamsulosin HCl 0.4 mg 09/04/16 12:45 09/13/16 09:39 Flomax - PO 0.4 mg DAILY@0830 FREDY Administration Laboratory Tests 09/09/16 06:38 Vit D 1,25-Dihydroxy 121.0 H Impression 1. Hypercalcemia 2. CAD 3. HTN 4. Chol 5. hx leukemia 6. JEROMY 7. bilateral hydro 8. hypokalemia 9. hypomagnesemia 10. non hodgkins lymphoma Plan - renal function is stable for now - calcium is improving - prelim biopsy shows non hodgkins lymphoma, awaiting final stains - oncology recommends prednisone 40 mg daily - will need oncology follow up, he is going to see Dr Mcleod on Friday - he can follow with me in the office for CKD management - cont flomax, will need urology follow up after discharge as well - discussed with medical attending - will follow Dr Hopper
--- NOTE | 2016-09-13 14:39 | PATH ---
Surgical Pathology Report Patient Name: ANDRES LOWRY [facility]. Rec. #: [id number] /Age/Gender: 1940 (Age: 76) / M Account: [id number] Location: [address] [place] [address]/[facility] Taken: 09/10/2016 Received: 09/10/2016 Reported: 09/13/2016 Physicians: Theo Avina M.D. Lucy Keita M.D. Stephen Sewell, M.D. 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 Comment: The case was seen in consultation with Hematopathology service at [facility] ([id number] Dr. Garrett). The diagnosis above reflects the consultation opinion. The specimen consists of needle core-shaped fragments of lymphoid tissue. Focally increased large atypical lymphoid cells are seen in a background of predominantly medium-sized lymphocytes with condensed chromatin. Immunostains demonstrate a mixture of B-cells and T-cells. The B-cells show PAX-5 expression and partial CD20 expression; no BCL-1 or SOX-11 co-expression can be demonstrated. The proliferative rate is high (40%). Immunostains showed the following: CD20 is positive in a large subset of B-cells; PAX-5 is positive in B-cells; large cells are positive for LEF-1; CD3 is positive in T-cells positive; CD5 is positive in T-cells and a subset of B-cells positive; large cells are positive for MIM1 and BCL6; BCL-2 is positive; BCL-1, SOX-11, CD10 and TATO are negative. Flow cytometry immunophenotyping performed on the concurrent sample ([id number]), detected a clonal CD5-positive B-cell population, 31% of total events with clonal ([place], dim-moderate) B-cell population with moderate CD19, CD20 and FMC-7 expression, co-expressing CD5, negative for CD23 and CD38. The case was preliminary discussed with Dr. Mcleod on 09/12/16. Electronically Signed Ricki Bailey M.D. Addendum Reported: 09/16/2016 Addendum Diagnosis IgVH Mutation analysis for CLL performed and interpreted at [place], [place] ([id number]) shows the following: Results: IgVH mutation status: Mutated Mutation rate: 6.9% Reference range: <2%: unmutated =2%: mutated Interpretation: The IgVH mutated B-cell population detected in this sample is greater than 2% compared with the germline sequence. This is consistent with mutated IgVH, which is associated with a better prognosis. Ricki Bailey M.D. Addendum Reported: 09/17/2016 Addendum Diagnosis FISH studies performed and interpreted at [place], [place]([id number]) are as follows: INTERPRETATION: No IGH/BCL2 t(14;18) translocation is detected. However, amplification of BCL2 (18q21) is detected in 20% of cells. No BCL6 (3q27) rearrangement is detected. However, deletion of the 3q27 region is detected in 30% of cells. No CCND1/IGH t(11;14) translocation is detected. In length and in an old well and are and wall and is in an Ricki Bailey M.D. Gross Description Received in formalin, labeled "lymph node biopsy" are 4 doty, cylindrical portions of soft tissue ranging from 0.3-1.2 cm in length and averaging 0.1 cm diameter. The specimens are submitted in toto in one cassette. There is additional tissue received in RPMI solution which is sent to [facility]. 09/10/201609/10/2016
== END 2016-09-13 13:07 | disposition home or self-care (01) | DRG 823 ==
LOC: JER 19:10 → JERBED 21:08 → J6S 23:41
PROVIDERS: ADMIT Internal Medicine; ATTEND Internal Medicine
PROC: 07BD3ZX Excision of Aortic Lymphatic, Percutaneous Approach, Diagnostic (ICD-10-PCS; principal; 2016-09-09)
DX: C85.93 Non-Hodgkin lymphoma, unspecified, intra-abdominal lymph nodes (principal); G93.41 Metabolic encephalopathy; N17.9 Acute kidney failure, unspecified; C91.10 Chronic lymphocytic leukemia of B-cell type not having achieved remission; N13.30 Unspecified hydronephrosis; E87.6 Hypokalemia; E83.42 Hypomagnesemia; E78.5 Hyperlipidemia, unspecified; E83.52 Hypercalcemia; R50.9 Fever, unspecified; I25.10 Atherosclerotic heart disease of native coronary artery without angina pectoris; Z95.1 Presence of aortocoronary bypass graft; I12.9 Hypertensive chronic kidney disease with stage 1 through stage 4 chronic kidney disease, or unspecified chronic kidney disease; N18.9 Chronic kidney disease, unspecified; R22.32 Localized swelling, mass and lump, left upper limb; R59.0 Localized enlarged lymph nodes
CPT/HCPCS: 36415; 38505; 71010-TC; 71020-TC; 74181-TC; 76775-TC; 78306-TC; 80048; 80053; 81003; 81015; 82272; 82310; 82436; 82570; 82652; 83735; 83970; 84100; 84133; 84156; 84300; 84443; 85025; 85610; 87040; 87086; 87899; 88305-TC; 93005; 93010; 97116-GP; 97162-PG; 99282-25; A9503; J1644; J2430

== ENCOUNTER 2017-01-29 13:47 | Inpatient (IN) | payer OTHER, MEDICARE ==
--- NOTE | 2017-01-29 15:44 | PDOC ---
History of Present Illness - General History Source: Patient Exam Limitations: No Limitations - History of Present Illness Initial Comments: 01/29/17 15:42 The patient is a 76-year-old man, accompanied by his daughter, with a significant past medical history of hypertension, hypercholesterolemia, CLL/ Lymphoma, ASHD status post CABG, duodenal adenoma, peptic ulcer, colitis and urethral polyp who presents to the emergency department with complaints of shortness of breath for the past 2-3 weeks. Patient states that he has been feeling progressively short of breath and weak. He also reports experiencing intermittent fevers at home (TMAX 102). He also reports feeling gassy with associated mild epigastric pain, which as a result, he also reports a decreased appetite. No chest pain, cough, headache, chills, nausea, vomiting, diarrhea, chest pain. No other complaints. Allergies: Piperacillin Sodium. Tazobactam Sodium Past Surgical History: See HPI Social History: No tobacco, EtOH and recreational drug use. Primary Care Physician: Dr. Jamel Love Oncologist/Lab Aid: Dr. Fuentes Mcleod <Kaycee Hdez - Last Filed: 01/29/17 17:13> <Beatrice Vance - Last Filed: 01/29/17 22:11> - General Chief Complaint: Shortness of Breath Stated Complaint: Shortness of Breath/FEVER Time Seen by Provider: 01/29/17 14:33 Past History <Kaycee Hdez - Last Filed: 01/29/17 17:13> - Past Medical History Anemia: No Cancer: Yes (LYMPHOMA CLL) Cardiac Disorders: Yes (ASHD S/P CABG) CVA: No CHF: No Dementia: No Diabetes: No GI Disorders: Yes (DUODENAL ADENOMA, PEPTIC ULCER, S/P INFECTIOUS COLITIS) Disorders: Yes (URETHRAL POLYP) HTN: Yes Hypercholesterolemia: Yes Liver Disease: No Seizures: No Thyroid Disease: No - Surgical History Abdominal Surgery: No Appendectomy: Yes Cardiac Surgery: Yes (CABG X4 VESSELS 2002) Cholecystectomy: Yes (2006) Lung Surgery: No Neurologic Surgery: No Orthopedic Surgery: No - Immunization History Immunization Up to Date: Yes - Psycho/Social/Smoking Cessation Hx Anxiety: No Suicidal Ideation: No Smoking History: Never smoked Have you smoked in the past 12 months: No Number of Cigarettes Smoked Daily: 0 Hx Alcohol Use: No Drug/Substance Use Hx: No Substance Use Type: None Hx Substance Use Treatment: No <Beatrice Vance - Last Filed: 01/29/17 22:11> - Past Medical History Allergies/Adverse Reactions: Allergies Allergy/AdvReac Type Severity Reaction Status Date / Time piperacillin sodium AdvReac Intermediate Itching Verified 01/29/17 13:57 [From Zosyn] tazobactam sodium AdvReac Intermediate Itching Verified 01/29/17 13:57 [From Zosyn] Home Medications: Ambulatory Orders Aspirin [ASA -] 81 mg PO DAILY 05/07/13 Pravastatin Sodium [Pravachol -] 20 mg PO HS 05/10/13 Silodosin [Rapaflo] 8 mg PO DAILY 05/10/13 Metoprolol Succinate [Toprol Xl] 50 mg PO DAILY 09/28/15 Amlodipine Besylate [Norvasc -] 5 mg PO DAILY #30 tablet 09/13/16 Magnesium Oxide [Mag-Ox -] 400 mg PO BID 01/29/17 Prednisone [Deltasone] 10 mg PO DAILY 01/29/17 Quinapril HCl [Accupril] 40 mg PO DAILY 01/29/17 Review of Systems - Review of Systems Able to Perform ROS?: Yes Comments:: 01/29/17 16:06 GENERAL/CONSTITUTIONAL: Yes: Fever. Weakness. Loss of Appetite. No chills. HEAD, EYES, EARS, NOSE AND THROAT: No change in vision. No ear pain or discharge. No sore throat. CARDIOVASCULAR: Yes: Shortness of Breath. No chest pain RESPIRATORY: No cough, wheezing, or hemoptysis. GASTROINTESTINAL: No nausea, vomiting, diarrhea or constipation. GENITOURINARY: No dysuria, frequency, or change in urination. MUSCULOSKELETAL: No joint or muscle swelling or pain. No neck or back pain. SKIN: No rash NEUROLOGIC: No headache, vertigo, loss of consciousness, or change in strength/ sensation. ENDOCRINE: No increased thirst. No abnormal weight change. HEMATOLOGIC/LYMPHATIC: Yes: History of lymphoma. No anemia, easy bleeding, or history of blood clots. ALLERGIC/IMMUNOLOGIC: No hives or skin allergy. <Kaycee Hdez - Last Filed: 01/29/17 17:13> *Physical Exam - Vital Signs Last Vital Signs Temp Pulse Resp BP Pulse Ox 98.0 F 73 20 132/83 95 01/29/17 13:53 01/29/17 13:53 01/29/17 13:53 01/29/17 13:53 01/29/17 14:44 - Physical Exam Comments: 01/29/17 16:07 GENERAL: Awake, alert, and fully oriented, in no acute distress HEAD: No signs of trauma EYES: PERRLA, EOMI, sclera anicteric, conjunctiva clear ENT: Auricles normal inspection, hearing grossly normal, nares patent, oropharynx clear without exudates. Moist mucosa NECK: Normal ROM, supple, no lymphadenopathy, JVD, or masses LUNGS: Breath sounds equal, clear to auscultation bilaterally. No wheezes, and no crackles HEART: Regular rate and rhythm, normal S1 and S2, no murmurs, rubs or gallops ABDOMEN: Soft, nontender, normoactive bowel sounds. No guarding, no rebound. No masses EXTREMITIES: Normal range of motion, no edema. No clubbing or cyanosis. No cords, erythema, or tenderness NEUROLOGICAL: Cranial nerves II through XII grossly intact. Normal speech, normal gait <Kaycee Hdez - Last Filed: 01/29/17 17:13> - Vital Signs Last Vital Signs Temp Pulse Resp BP Pulse Ox 98.0 F 73 20 132/83 95 01/29/17 13:53 01/29/17 13:53 01/29/17 13:53 01/29/17 13:53 01/29/17 14:44 <Beatrice Vance - Last Filed: 01/29/17 22:11> Heart Score/ECG Review - ECG Impressions Comment:: EKG read 15:37- NSR 71 bpm. +LVH <Beatrice Vance - Last Filed: 01/29/17 22:11> ED Treatment Course - LABORATORY CBC & Chemistry Diagram: 01/29/17 15:18 01/29/17 15:18 - RADIOLOGY Radiograph Interpretation: 01/29/17 16:34 EXAM: RAD/CHEST X-RAY PORTABLE Interpreted by Dr. Johanna Burdick IMPRESSION: Portable chest x-ray AP sitting. Since the 09/01/2016, the cardiac silhouette remains within normal limits in size. Interval atelectatic changes in the left upper lobe. Status post CABG again noted. Significant degenerative changes in both shoulder joints <Kaycee Hdez - Last Filed: 01/29/17 17:13> - LABORATORY CBC & Chemistry Diagram: 01/29/17 15:18 01/29/17 15:18 - RADIOLOGY Radiology Studies Ordered: Category Date Time Status CHEST X-RAY PORTABLE* [RAD] Stat Radiology 01/29/17 15:15 Ordered <Beatrice Vance - Last Filed: 01/29/17 22:11> Medical Decision Making - Medical Decision Making 01/29/17 15:[address] Mcleod. Immediate response. Case was discussed. 01/29/17 17:[address] John. <Kaycee Hdez - Last Filed: 01/29/17 17:13> - Medical Decision Making Initially case was discussed with Dr. Mcleod, possibility of fever as a result of his CA. I had ordered a fever workup including cultures. During his ED stay he was desatting on monitor. CXR was found to have L sided pna. Will treat with rocephin and azithro, discussed with Dr. John. Will admit. <Beatrice Vance - Last Filed: 01/29/17 22:11> *DC/Admit/Observation/Transfer - Attestations Scribe Attestion: 01/29/17 15:42 Documentation prepared by Kaycee Hdez, acting as medical technologist chemistry for Beatrice Vance MD. <Kaycee Hdez - Last Filed: 01/29/17 17:13> - Discharge Dispostion Admit: Yes <Beatrice Vance - Last Filed: 01/29/17 22:11> Diagnosis at time of Disposition: Pneumonia, community acquired - Discharge Dispostion Condition at time of disposition: Stable - Referrals
[2017-01-29 15:54] LABS: MCH 28.2 pg (25.7-33.7); MCHC 32.5 g/dl (32.0-35.9); MEAN CELL VOLUME 86.8 fl (80-96); MEAN PLT VOLUME 8.9 fl (7.5-11.1); PLATELET COUNT 177 K/MM3 (134-434); RDW 15.7 % (11.9-15.9); WHITE BLOOD COUNT 8.9 K/mm3 (4.0-10.0)
[2017-01-29 16:00] LABS: URINE APPEARANCE CLEAR; URINE BILIRUBIN NEGATIVE (NEGATIVE); URINE BLOOD NEGATIVE (NEGATIVE); URINE COLOR LTYELLOW; URINE GLUCOSE (UA) NEGATIVE (NEGATIVE); URINE KETONE NEGATIVE (NEGATIVE); URINE LEUK ESTERASE NEGATIVE (NEGATIVE); URINE NITRITE NEGATIVE (NEGATIVE); URINE PROTEIN NEGATIVE (NEGATIVE); URINE UROBILINOGEN NEGATIVE E.U./dl (0.2-1.0)
[2017-01-29 16:07] LABS: ANION GAP 6 (8-16); CALCIUM 11.6 mg/dL (8.5-10.1); CO2 31 mmol/L (21-32); CREATININE 1.4 mg/dL (0.7-1.3); GLUCOSE,RANDOM 97 mg/dL (74-106); SGOT/AST 32 U/L (15-37); SGPT/ALT 22 U/L (12-78)
[2017-01-29 16:09] LABS: ALK PHOS 57 U/L (45-117); BILIRUBIN,TOTAL 0.4 mg/dL (0.2-1.0)
[2017-01-29] MEDS ORDERED: CEFTRIAXONE 1 GM in DEXTROSE 5%-WATER - 50 ML IVPB ONE (17:17)
[2017-01-29] MEDS ORDERED: AZITHROMYCIN IVPB 500 MG in DEXTROSE 5%-WATER - 250 ML IVPB ONE (17:18)
[2017-01-29] MEDS ORDERED: CEFTRIAXONE 50 ML ONE (17:20)
[2017-01-29] MEDS ORDERED: AZITHROMYCIN IVPB 250 ML IVPB ONE (17:20)
[2017-01-29 20:03] VITALS: BMI 24.5
[2017-01-29] MEDS: MAGNESIUM OXIDE 400 MG TABLET (FP) PO SCH (21:11)
[2017-01-29] MEDS: ATORVASTATIN CA 10 MG TABLET (FP) PO SCH (21:11)
[2017-01-29] MEDS: SODIUM CHLORIDE 1,000 ML IV SCH (22:43)
[2017-01-30 00:02] LABS: METAMYELOCYTE 1 % (0-2); PLATELET ESTIMATE ADEQUATE (NORMAL)
[2017-01-30 07:55] LABS: MCH 28.9 pg (25.7-33.7); MCHC 33.7 g/dl (32.0-35.9); MEAN CELL VOLUME 85.6 fl (80-96); MEAN PLT VOLUME 8.7 fl (7.5-11.1); PLATELET COUNT 149 K/MM3 (134-434); RDW 15.9 % (11.9-15.9); WHITE BLOOD COUNT 8.1 K/mm3 (4.0-10.0)
[2017-01-30] MEDS: TAMSULOSIN HCL 0.4 MG CAP.ER.24H (FP) PO SCH (08:10)
[2017-01-30 08:33] LABS: ALBUMIN 2.5 g/dl (3.4-5.0); ALK PHOS 49 U/L (45-117); ANION GAP 9 (8-16); BILIRUBIN,TOTAL 0.5 mg/dL (0.2-1.0); CALCIUM 9.8 mg/dL (8.5-10.1); CO2 30 mmol/L (21-32); CREATININE 1.3 mg/dL (0.7-1.3); GLUCOSE,RANDOM 95 mg/dL (74-106); SGOT/AST 28 U/L (15-37); SGPT/ALT 18 U/L (12-78)
[2017-01-30] MEDS ORDERED: PT OWN MED DRAWER 7, Y5N ONE ×2 (09:35→16:40)
[2017-01-30] MEDS: ASPIRIN 81 MG CHEWABLE TABLETS PO SCH (09:47)
[2017-01-30] MEDS: AZITHROMYCIN IVPB 250 ML IVPB SCH (09:48)
[2017-01-30] MEDS: METOPROLOL SUCCINATE 50 MG TAB.SR.24H (FP) PO SCH (09:48)
[2017-01-30] MEDS: predniSONE 10 MG TABLET (UD) PO SCH (09:48)
[2017-01-30] MEDS: PANTOPRAZOLE 40 MG TABLET (FP) PO SCH (09:48)
[2017-01-30] MEDS: amLODIPine BESYLATE 5 MG TABLET (FP) PO SCH (09:48)
[2017-01-30] MEDS: MAGNESIUM OXIDE 400 MG TABLET (FP) PO SCH ×2 (09:48→21:22)
[2017-01-30] MEDS ORDERED: CEFTRIAXONE 50 ML IVPB SCH (10:00)
[2017-01-30] MEDS ORDERED: PATIENT'S OWN MEDICATION (NON-FORMULARY) (Silodosin [Rapaflo] 8 MG) PO SCH (10:00)
--- NOTE | 2017-01-30 10:01 | CON.PULM ---
Consult Consult Specialty:: PULMONARY Referred by:: Dr. John Reason for Consultation:: pneumonia - History of Present Illness Chief Complaint: fever History of Present Illness: 76yo male with h/o HTN, hypercholesterolemia, CAD s/p CABG, CLL who presents with worsening shortness of breath x 2-3 weeks. Also reports subjective fevers for the past 4-5 days as well as generalized weakness. +cough mostly nonproductive without chest pain or discomfort. No nausea, vomiting or diarrhea. No sick contacts or recent travel. Reports history of pneumonia 8 years ago, no recent antibiotic use. No history of pulmonary issues, is a never smoker and he used to work at the [employer]. - History Source History Provided By: Patient, Medical Record Limitations to Obtaining History: No Limitations - Past Medical History Cardio/Vascular: Yes: CAD, HTN, Hyperlipdemia Gastrointestinal: Yes: Gastritis, GERD, Inflamatory Bowel Disease, Peptic Ulcer Disease, Other (Duodenal adenoma, Pancreatic cyst, S/P Infectious colitis on ) Renal/: Yes: Renal Inusuff, BPH - Past Surgical History Past Surgical History: Yes: Appendectomy, CABG, Cholecystectomy - Alcohol/Substance Use Hx Alcohol Use: No History of Substance Use: reports: None - Smoking History Smoking history: Never smoked Have you smoked in the past 12 months: No Aproximately how many cigarettes per day: 0 - Social History ADL: Independent History of Recent Travel: No Home Medications - Allergies Allergies/Adverse Reactions: Allergies Allergy/AdvReac Type Severity Reaction Status Date / Time piperacillin sodium AdvReac Intermediate Itching Verified 01/29/17 13:57 [From Zosyn] tazobactam sodium AdvReac Intermediate Itching Verified 01/29/17 13:57 [From Zosyn] - Home Medications Home Medications: Ambulatory Orders Aspirin [ASA -] 81 mg PO DAILY 05/07/13 Pravastatin Sodium [Pravachol -] 20 mg PO HS 05/10/13 Silodosin [Rapaflo] 8 mg PO DAILY 05/10/13 Metoprolol Succinate [Toprol Xl] 50 mg PO DAILY 09/28/15 Amlodipine Besylate [Norvasc -] 5 mg PO DAILY #30 tablet 09/13/16 Magnesium Oxide [Mag-Ox -] 400 mg PO BID 01/29/17 Prednisone [Deltasone] 10 mg PO HS 01/29/17 Quinapril HCl [Accupril] 40 mg PO DAILY 01/29/17 Ibrutinib [Imbruvica] 420 mg PO DAILY 01/30/17 Prednisone 5 mg PO DAILY 01/30/17 Family Disease History - Family Disease History Family Disease History: Heart Disease: Father Review of Systems - Review of Systems Constitutional: reports: Fever, Malaise, Weakness Eyes: denies: Recent Change in Vision HENT: denies: Nasal Congestion, Throat Pain Neck: denies: Stiffness, Tenderness Cardiovascular: reports: Shortness of Breath. denies: Chest Pain, Palpitations Respiratory: reports: Cough, SOB. denies: Hemoptysis, Wheezing Gastrointestinal: denies: Abdominal Pain, Nausea, Vomiting Neurological: denies: Dizziness, Headache Endocrine: denies: Unexplained Weight Gain, Unexplained Weight Loss Physical Exam Vital Sings: Vital Signs Temperature 99.6 F 01/30/17 09:21 Pulse Rate 76 01/30/17 09:21 Respiratory Rate 20 01/30/17 09:21 Blood Pressure 139/79 01/30/17 09:21 O2 Sat by Pulse Oximetry (%) 94 L 01/29/17 21:00 Constitutional: Yes: Calm Eyes: Yes: Conjunctiva Clear, EOM Intact HENT: Yes: Atraumatic, Normocephalic Neck: Yes: Supple, Trachea Midline Cardiovascular: Yes: Regular Rate and Rhythm Respiratory: Yes: Regular, Diminished (decreased breath sounds at the bases) ...Clubbing: No Gastrointestinal: Yes: Normal Bowel Sounds, Soft. No: Tenderness Edema: No Peripheral Pulses WNL: Yes Neurological: Yes: Alert, Oriented Labs: CBC, BMP 01/30/17 06:00 01/30/17 06:00 Imaging - Results Chest X-ray: Report Reviewed, Image Reviewed (left upper lobe nodularity) Problem List - Problems (1) Pneumonia, community acquired Code(s): J18.9 - PNEUMONIA, UNSPECIFIED ORGANISM (2) CAD (coronary artery disease) Code(s): I25.10 - ATHSCL HEART DISEASE OF [place] CORONARY ARTERY W/O ANG PCTRS (3) HLD (hyperlipidemia) Code(s): E78.5 - HYPERLIPIDEMIA, UNSPECIFIED (4) HTN (hypertension) Code(s): I10 - ESSENTIAL (PRIMARY) HYPERTENSION (5) CLL (chronic lymphocytic leukemia) Code(s): C91.10 - CHRONIC LYMPHOCYTIC LEUK OF B-CELL TYPE NOT ACHIEVE REMIS Assessment/Plan Pneumonia likely community acquired h/o CLL CAD s/p CABG HTN Hypercholesterolemia CKD - agree with ceftriaxone/azithromycin - send urinary antigens for legionella/strep pneumo - will order CT chest noncontrast given nodularity of MIRI findings although CXR earlier this year in Aug was unremarkable - will need outpt f/u of chest imaging to ensure resolution of infiltrate - IVF - monitor urine output, creatinine - DVT prophylaxis Thank you for this consult Santos To MD
--- NOTE | 2017-01-30 10:28 | PN ---
Progress Note, Physician Chief Complaint: ID Full note dictated - Current Medication List Current Medications: Active Medications Acetaminophen (Tylenol -) 650 mg PO Q6H PRN PRN Reason: FEVER OR PAIN Amlodipine Besylate (Norvasc -) 5 mg PO DAILY [facility] Last Admin: 01/30/17 09:48 Dose: 5 mg Aspirin (Asa -) 81 mg PO DAILY [facility] Last Admin: 01/30/17 09:47 Dose: 81 mg Atorvastatin Calcium (Lipitor -) 10 mg PO HS [facility] Last Admin: 01/29/17 21:11 Dose: Not Given Sodium Chloride (Normal Saline -) 1,000 mls @ 100 mls/hr IV ASDIR [facility] Last Admin: 01/29/17 22:43 Dose: 100 mls/hr Azithromycin (Zithromax 500mg Ivpb (Pre-Docked)) 250 mls @ 250 mls/hr IVPB DAILY [facility] Last Admin: 01/30/17 09:48 Dose: 250 mls/hr Ceftriaxone Sodium 1 gm/ (Dextrose) 50 mls @ 100 mls/hr IVPB DAILY [facility] Magnesium Oxide (Mag-Ox -) 400 mg PO BID [facility] Last Admin: 01/30/17 09:48 Dose: 400 mg Metoprolol Succinate (Toprol Xl -) 50 mg PO DAILY [facility] Last Admin: 01/30/17 09:48 Dose: 50 mg Pantoprazole Sodium (Protonix -) 40 mg PO DAILY [facility] Last Admin: 01/30/17 09:48 Dose: 40 mg Prednisone (Deltasone -) 10 mg PO DAILY [facility] Last Admin: 01/30/17 09:48 Dose: 10 mg Quinapril HCl (Accupril -) 40 mg PO DAILY [facility] Tamsulosin HCl (Flomax -) 0.4 mg PO DAILY@0830 [facility] Last Admin: 01/30/17 08:10 Dose: 0.4 mg - Objective Vital Signs: Vital Signs Temperature 99.6 F 01/30/17 09:21 Pulse Rate 76 01/30/17 09:21 Respiratory Rate 20 01/30/17 09:21 Blood Pressure 139/79 01/30/17 09:21 O2 Sat by Pulse Oximetry (%) 94 L 01/29/17 21:00 Labs: CBC, BMP 01/30/17 06:00 01/30/17 06:00 Problem List - Problems (1) CLL (chronic lymphocytic leukemia) Code(s): C91.10 - CHRONIC LYMPHOCYTIC LEUK OF B-CELL TYPE NOT ACHIEVE REMIS (2) Pneumonia, community acquired Code(s): J18.9 - PNEUMONIA, UNSPECIFIED ORGANISM Assessment/Plan Assessment CAP Plan Antibiotics as ordered Naomi CHATMAN
[2017-01-30 11:17] LABS: PLATELET COMMENT2 NO CLOTTING DETECTED; PLATELET ESTIMATE SLT DECREASED (NORMAL)
[2017-01-30 11:18] LABS: ANISOCYTOSIS 1+; HYPOCHROMIA 1+
--- NOTE | 2017-01-30 11:19 | EKG ---
Test Reason : Blood Pressure : / mmHG Vent. Rate : 071 BPM Atrial Rate : 071 BPM P-R Int : 196 ms QRS Dur : 118 ms QT Int : 394 ms P-R-T Axes : 020 -27 027 degrees QTc Int : 428 ms NORMAL SINUS RHYTHM LEFT VENTRICULAR HYPERTROPHY WITH QRS WIDENING ABNORMAL ECG WHEN COMPARED WITH ECG OF 27-AUG-2016 15:49, SC INTERVAL HAS DECREASED Confirmed by AURORA GARCIA MD ([id number]) on 01/30/2017 11:19:02 AM Referred By: Confirmed By:AURORA GARCIA MD
--- NOTE | 2017-01-30 11:27 | HP ---
Admitting History and Physical - Primary Care Physician PCP: Jamel Love - Admission Chief Complaint: I have pneumonia History of Present Illness: Mr Saucedo is a very pleasant 76 year old male who comes in with 1 week of fevers, chills, and shortness of breath. He says he was doing well when he started to have fevers at home. He would take tylenol and it would resolved, however they would return. He also had night sweats associated with it. He had cough and shortness of breath, the cough was non-productive. He came in and was found to have a pneumonia and was admitted. He denies lightheadedness, dizziness , passing out, chest pain, abdominal pain, nausea, vomiting, diarrhea, constipation, swelling, or any other concern. He is currently feeling better today. History Source: Patient Limitations to Obtaining History: No Limitations - Past Medical History Cardiovascular: Yes: CAD, HTN, Hyperlipdemia Gastrointestinal: Yes: Gastritis, GERD, Inflamatory Bowel Disease, Peptic Ulcer Disease, Other (Duodenal adenoma, Pancreatic cyst, S/P Infectious colitis on ) Renal/: Yes: Renal Inusuff, BPH Heme/Onc: Yes: Other (Small lymphocytic Lymphoma, CLL, Polycythemia Vera ) - Past Surgical History Past Surgical History: Yes: Appendectomy, CABG, Cholecystectomy - Smoking History Smoking history: Never smoked Have you smoked in the past 12 months: No Aproximately how many cigarettes per day: 0 - Alcohol/Substance Use Hx Alcohol Use: No History of Substance Use: reports: None - Social History Usual Living Arrangement: Yes: With Spouse ADL: Independent History of Recent Travel: No Home Medications - Allergies Allergies/Adverse Reactions: Allergies Allergy/AdvReac Type Severity Reaction Status Date / Time piperacillin sodium AdvReac Intermediate Itching Verified 01/29/17 13:57 [From Zosyn] tazobactam sodium AdvReac Intermediate Itching Verified 01/29/17 13:57 [From Zosyn] - Home Medications Home Medications: Ambulatory Orders Aspirin [ASA -] 81 mg PO DAILY 05/07/13 Pravastatin Sodium [Pravachol -] 20 mg PO HS 05/10/13 Silodosin [Rapaflo] 8 mg PO DAILY 05/10/13 Metoprolol Succinate [Toprol Xl] 50 mg PO DAILY 09/28/15 Amlodipine Besylate [Norvasc -] 5 mg PO DAILY #30 tablet 09/13/16 Magnesium Oxide [Mag-Ox -] 400 mg PO BID 01/29/17 Prednisone [Deltasone] 10 mg PO HS 01/29/17 Quinapril HCl [Accupril] 40 mg PO DAILY 01/29/17 Ibrutinib [Imbruvica] 420 mg PO DAILY 01/30/17 Prednisone 5 mg PO DAILY 01/30/17 Family Disease History - Family Disease History Family Disease History: Heart Disease: Father Review of Systems Findings/Remarks: Full review of systems obtained, as per HPI and otherwise negative Physical Examination Vital Signs: Vital Signs Temperature 99.6 F 01/30/17 09:21 Pulse Rate 76 01/30/17 09:21 Respiratory Rate 20 01/30/17 09:21 Blood Pressure 139/79 01/30/17 09:21 O2 Sat by Pulse Oximetry (%) 94 L 01/29/17 21:00 Constitutional: Yes: Well Nourished, No Distress, Calm Eyes: Yes: Conjunctiva Clear, EOM Intact, PERRL HENT: Yes: Atraumatic, Normocephalic Cardiovascular: Yes: Regular Rate and Rhythm. No: Gallop, Murmur, Rub Respiratory: Yes: Regular, CTA Bilaterally. No: Rales, Rhonchi, Wheezes Gastrointestinal: Yes: Normal Bowel Sounds, Soft. No: Distention, Tenderness Extremities: Yes: WNL Edema: No Labs: CBC, BMP 01/30/17 06:00 01/30/17 06:00 Imaging - Results Chest X-ray: Report Reviewed, Image Reviewed Problem List - Problems (1) Pneumonia, community acquired Assessment/Plan: -patient presents with CAP -appreciate ID assistance -continue rocephin and zithromax day 2 Code(s): J18.9 - PNEUMONIA, UNSPECIFIED ORGANISM (2) CKD (chronic kidney disease) Assessment/Plan: -at baseline -monitor Code(s): N18.9 - CHRONIC KIDNEY DISEASE, UNSPECIFIED Qualifiers: Chronic kidney disease stage: stage 2 (mild) Qualified Code(s): N18.2 - Chronic kidney disease, stage 2 (mild) (3) CLL (chronic lymphocytic leukemia) Assessment/Plan: -continue home ibrutinib Code(s): C91.10 - CHRONIC LYMPHOCYTIC LEUK OF B-CELL TYPE NOT ACHIEVE REMIS (4) CAD (coronary artery disease) Assessment/Plan: -quiescent, no chest pain -continue home regimen Code(s): I25.10 - ATHSCL HEART DISEASE OF [place] CORONARY ARTERY W/O ANG PCTRS (5) HLD (hyperlipidemia) Assessment/Plan: -continue statin Code(s): E78.5 - HYPERLIPIDEMIA, UNSPECIFIED (6) HTN (hypertension) Assessment/Plan: -controlled -continue norvasc, toprol xl, and quinapril Code(s): I10 - ESSENTIAL (PRIMARY) HYPERTENSION
--- NOTE | 2017-01-30 11:39 | CONS ---
DATE OF CONSULTATION: DATE OF DICTATION: 01/30/2017 HISTORY OF PRESENT ILLNESS: This is a 76-year-old [place] male admitted with chief complaint of chest pain with nonproductive cough and fever over the last week. He also notes generalized weakness. His x-ray showed possible left-sided infiltrate, and he was empirically treated with ceftriaxone and azithromycin. He denies any shortness of breath, has no history of recent travel. He emigrated from [place] the [place] over [place] years ago. He does not smoke or drink, and he lives at home. He has no unusual hobbies and no pets if you ask him. PAST MEDICAL HISTORY: Includes CLL status post CABG, coronary artery disease, hyperlipidemia, hypertension, peptic ulcer disease, inflammatory bowel disease, duodenal ulcer, pancreatic cyst, appendectomy, and cholecystectomy. MEDICATIONS AT HOME: Aspirin, pravastatin, Rapaflo, metoprolol, amlodipine, quinapril, ibrutinib. ALLERGIES: To PENICILLIN with mild itching, but no rash. FAMILY HISTORY: Reviewed and noncontributory. REVIEW OF SYSTEMS: Respiratory: No shortness of breath. Positive nonproductive cough. No hemoptysis. Cardiac: No chest pain, palpitations, syncope. Gastrointestinal: No abdominal pain, nausea, vomiting, diarrhea. Genitourinary: No dysuria, hematuria, or urinary frequency. PHYSICAL EXAMINATION: General: He was a [id number] male, who appeared weak, but otherwise alert and pleasant. Vital signs: His temperature maximum was 101.5, currently 99.5, pulse 76, blood pressure 140/80, respirations 20. Neck: Supple, no adenopathy. Lungs: Clear to percussion with scattered rhonchi and a few rales. Heart: S1, S2, regular rhythm, no audible murmur. Abdomen: Soft, nontender, without hepatosplenomegaly. Extremities: No clubbing, cyanosis, or edema. LABORATORY DATA: The white count is 8.1, hemoglobin 11.8, platelets 149,000, 83% neutrophils, 7 lymphocytes, 3 monocytes, and 6 bands. BUN 35, creatinine 1.4, calcium 11.6 but repeat 9.8. Liver enzymes within normal limits. Urinalysis screening negative for leukocyte esterase. Two sets of blood cultures to date, no growth as of te morning. Urine culture pending. Chest x-ray office report shows nodularity in the tiny nodules, left upper lobe, possible atelectasis and/or infiltrate noted. ASSESSMENT: This 76-year-old [place]ian male presents with fever and cough, findings consistent with community-acquired pneumonia. Prior history of coronary artery disease and chronic lymphocytic leukemia noted. Patient has been on ibrutinib for CLL. Would empirically treat for ceftriaxone and azithromycin as ordered, await final blood cultures, legionella urinary antigen, sputum for culture and sensitivity. KATHY HUFFMAN M.D. [id number]
[2017-01-30] MEDS ORDERED: cefTRIAXone SODIUM 1 GM VIAL ONE (11:42)
[2017-01-30] MEDS ORDERED: DEXTROSE 5%-WATER - 50 ML IVPB ONE (11:43)
[2017-01-30] MEDS: SODIUM CHLORIDE 1,000 ML IV SCH ×2 (12:10→21:22)
[2017-01-30] MEDS: CEFTRIAXONE 1 GM in DEXTROSE 5%-WATER - 50 ML IVPB SCH (12:11)
[2017-01-30] MEDS: QUINAPRIL HCL 40 MG TABLET (FP) PO SCH (12:31)
--- NOTE | 2017-01-30 16:28 | CONSULT ---
Consult Consult Specialty:: Nephrology Reason for Consultation:: hypercalcemia - History of Present Illness Chief Complaint: shortness of breath and cough History of Present Illness: Pt is a 76 year old man with pmhx of HTN, chol, CLL, CABG and colitis who presets to the ER with shortness of breath. He complains of cough and shortness of breath with minimal exertion. He denies chest pain. He was found to have a PNA and admitted for treatment. He was found to be hypercalcemic and I was called to evaluate him. His calcium did improve with hydration. He did have hyerpcalcemia in the past. Pt did complain of fevers. He says he feels better today. - History Source History Provided By: Patient, Medical Record - Past Medical History Cardio/Vascular: Yes: CAD, HTN, Hyperlipdemia Gastrointestinal: Yes: Gastritis, GERD, Inflamatory Bowel Disease, Peptic Ulcer Disease, Other (Duodenal adenoma, Pancreatic cyst, S/P Infectious colitis on ) Renal/: Yes: Renal Inusuff, BPH, Other (hypercalcemia) - Past Surgical History Past Surgical History: Yes: Appendectomy, CABG, Cholecystectomy - Alcohol/Substance Use Hx Alcohol Use: No History of Substance Use: reports: None - Smoking History Smoking history: Never smoked Have you smoked in the past 12 months: No Aproximately how many cigarettes per day: 0 - Social History ADL: Independent History of Recent Travel: No Home Medications - Allergies Allergies/Adverse Reactions: Allergies Allergy/AdvReac Type Severity Reaction Status Date / Time piperacillin sodium AdvReac Intermediate Itching Verified 01/29/17 13:57 [From Zosyn] tazobactam sodium AdvReac Intermediate Itching Verified 01/29/17 13:57 [From Zosyn] - Home Medications Home Medications: Ambulatory Orders Aspirin [ASA -] 81 mg PO DAILY 05/07/13 Pravastatin Sodium [Pravachol -] 20 mg PO HS 05/10/13 Silodosin [Rapaflo] 8 mg PO DAILY 05/10/13 Metoprolol Succinate [Toprol Xl] 50 mg PO DAILY 09/28/15 Amlodipine Besylate [Norvasc -] 5 mg PO DAILY #30 tablet 09/13/16 Magnesium Oxide [Mag-Ox -] 400 mg PO BID 01/29/17 Prednisone [Deltasone] 10 mg PO HS 01/29/17 Quinapril HCl [Accupril] 40 mg PO DAILY 01/29/17 Ibrutinib [Imbruvica] 420 mg PO DAILY 01/30/17 Prednisone 5 mg PO DAILY 01/30/17 Family Disease History - Family Disease History Family Disease History: Heart Disease: Father Review of Systems - Review of Systems Constitutional: reports: Fever, Malaise Eyes: reports: No Symptoms HENT: reports: No Symptoms Neck: reports: No Symptoms Cardiovascular: denies: Edema Respiratory: reports: Cough, SOB, SOB on Exertion Genitourinary: reports: No Symptoms Musculoskeletal: reports: No Symptoms Neurological: reports: No Symptoms Endocrine: reports: No Symptoms Hematology/Lymphatic: reports: No Symptoms Psychiatric: reports: No Symptoms Physical Exam Vital Signs: Vital Signs Temperature 98.5 F 01/30/17 14:59 Pulse Rate 70 01/30/17 14:59 Respiratory Rate 18 01/30/17 14:59 Blood Pressure 122/66 01/30/17 14:59 O2 Sat by Pulse Oximetry (%) 92 L 01/30/17 09:00 Constitutional: Yes: Calm Eyes: Yes: Conjunctiva Clear HENT: Yes: Atraumatic Neck: Yes: Supple Cardiovascular: Yes: S1, S2 Respiratory: Yes: On Nasal O2, Rhonchi Gastrointestinal: Yes: Soft Renal/: Yes: WNL Musculoskeletal: Yes: WNL Edema: No Neurological: Yes: Oriented Psychiatric: Yes: Oriented Labs: CBC, BMP 01/30/17 06:00 01/30/17 06:00 Laboratory Tests 01/29/17 01/29/17 01/29/17 15:18 15:18 15:18 WBC 8.9 Hgb 12.4 D Plt Count 177 Anion Gap 6 L BUN 35 H D Creatinine 1.4 H Urine Color Ltyellow Urine Appearance Clear Urine pH 6.0 Ur Specific [place] 1.015 Urine Protein Negative Urine Glucose (UA) Negative Urine Ketones Negative Urine Blood Negative Urine Nitrite Negative Urine Bilirubin Negative Urine Urobilinogen Negative Ur Leukocyte Esterase Negative 01/30/17 01/30/17 06:00 06:00 WBC 8.1 Hgb 11.8 Plt Count 149 Anion Gap BUN 30 H Creatinine 1.3 Urine Color Urine Appearance Urine pH Ur Specific [place] Urine Protein Urine Glucose (UA) Urine Ketones Urine Blood Urine Nitrite Urine Bilirubin Urine Urobilinogen Ur Leukocyte Esterase Imaging - Results Chest X-ray: Report Reviewed Problem List - Problems (1) CLL (chronic lymphocytic leukemia) Code(s): C91.10 - CHRONIC LYMPHOCYTIC LEUK OF B-CELL TYPE NOT ACHIEVE REMIS (2) Hypercalcemia Code(s): E83.52 - HYPERCALCEMIA Assessment/Plan Current Medications Generic Name Dose Route Start Last Admin Trade Name Freq PRN Reason Stop Dose Admin Acetaminophen 650 mg 01/29/17 18:40 Tylenol - PO Q6H PRN FEVER OR PAIN Amlodipine Besylate 5 mg 01/30/17 10:00 01/30/17 09:48 Norvasc - PO 5 mg DAILY FREDY Administration Aspirin 81 mg 01/30/17 10:00 01/30/17 09:47 Asa - PO 81 mg DAILY FREDY Administration Atorvastatin Calcium 10 mg 01/29/17 22:00 01/29/17 21:11 Lipitor - PO Not Given HS FREDY Sodium Chloride 1,000 mls @ 100 mls/hr 01/29/17 18:45 01/30/17 12:10 Normal Saline - IV 100 mls/hr ASDIR FREDY Administration Azithromycin 250 mls @ 250 mls/hr 01/30/17 10:00 01/30/17 09:48 Zithromax 500mg Ivpb (Pre-Docked) IVPB 250 mls/hr DAILY FREDY Administration Ceftriaxone Sodium 1 gm/ 50 mls @ 100 mls/hr 01/30/17 10:04 01/30/17 12:11 Dextrose IVPB 100 mls/hr DAILY FREDY Administration Magnesium Oxide 400 mg 01/29/17 22:00 01/30/17 09:48 Mag-Ox - PO 400 mg BID FREDY Administration Metoprolol Succinate 50 mg 01/30/17 10:00 01/30/17 09:48 Toprol Xl - PO 50 mg DAILY FREDY Administration (Ibrutinib) 0 mg 01/31/17 07:00 Imbruvica 140 Mg- PO Patient's Own Med- DAILY@0700 FREDY Non-Form Pantoprazole Sodium 40 mg 01/30/17 10:00 01/30/17 09:48 Protonix - PO 40 mg DAILY FREDY Administration Prednisone 10 mg 01/30/17 10:00 01/30/17 09:48 Deltasone - PO 10 mg DAILY FREDY Administration Quinapril HCl 40 mg 01/30/17 10:00 01/30/17 12:31 Accupril - PO 40 mg DAILY FREDY Administration Tamsulosin HCl 0.4 mg 01/30/17 08:30 01/30/17 08:10 Flomax - PO 0.4 mg DAILY@0830 FREDY Administration Impression 1. Hypercalcemia 2. CAD 3. HTN 4. Chol 5. hx leukemia 6. non hodgkins lymphoma 7. CKD Plan - cont with fluids - repeat labs in am - hypercalcemia may be from dehydration - will follow closely - check PTH - discussed with attending Dr Hopper
--- NOTE | 2017-01-30 20:05 | PN ---
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 Found to have bilobar pna. MOst recently treated w ibrutinib and on pred taper PE non-toxic, NAD lungs - coarse BS L base CVS-reg S1S2 abd - soft, NT ext-no edema Imp - pna in immunocompromised state DLCL appreciate ID mgt hypercalcemia - improved w IVF; would monitor cont ibrutinib dosing
[2017-01-30] MEDS: ATORVASTATIN CA 10 MG TABLET (FP) PO SCH (21:22)
[2017-01-31] MEDS ORDERED: PT OWN MED DRAWER 7, Y5N ONE ×2 (06:02→09:07)
[2017-01-31] MEDS: ACETAMINOPHEN 325 MG TABLET (FP) PO PRN (06:54)
[2017-01-31 08:05] LABS: MCH 28.4 pg (25.7-33.7); MCHC 32.9 g/dl (32.0-35.9); MEAN CELL VOLUME 86.3 fl (80-96); MEAN PLT VOLUME 8.9 fl (7.5-11.1); PLATELET COUNT 196 K/MM3 (134-434); RDW 16.1 % (11.9-15.9); WHITE BLOOD COUNT 11.6 K/mm3 (4.0-10.0)
[2017-01-31] MEDS: TAMSULOSIN HCL 0.4 MG CAP.ER.24H (FP) PO SCH (08:14)
[2017-01-31] MEDS: SODIUM CHLORIDE 1,000 ML IV SCH ×2 (08:14→18:55)
[2017-01-31] MEDS ORDERED: cefTRIAXone SODIUM 1 GM VIAL ONE (09:07)
[2017-01-31] MEDS ORDERED: DEXTROSE 5%-WATER - 50 ML IVPB ONE (09:07)
[2017-01-31] MEDS: QUINAPRIL HCL 40 MG TABLET (FP) PO SCH (09:11)
[2017-01-31] MEDS: predniSONE 10 MG TABLET (UD) PO SCH (09:12)
[2017-01-31] MEDS: ASPIRIN 81 MG CHEWABLE TABLETS PO SCH (09:12)
[2017-01-31] MEDS: AZITHROMYCIN IVPB 250 ML IVPB SCH (09:12)
[2017-01-31] MEDS: MAGNESIUM OXIDE 400 MG TABLET (FP) PO SCH ×2 (09:12→21:51)
[2017-01-31] MEDS: PANTOPRAZOLE 40 MG TABLET (FP) PO SCH (09:12)
[2017-01-31] MEDS: amLODIPine BESYLATE 5 MG TABLET (FP) PO SCH (09:12)
[2017-01-31] MEDS: METOPROLOL SUCCINATE 50 MG TAB.SR.24H (FP) PO SCH (09:12)
[2017-01-31 09:13] LABS: ALBUMIN 2.7 g/dl (3.4-5.0); ANION GAP 11 (8-16); CALCIUM 10.2 mg/dL (8.5-10.1); CO2 28 mmol/L (21-32); GLUCOSE,RANDOM 106 mg/dL (74-106); MAGNESIUM 2.1 mg/dL (1.8-2.4)
[2017-01-31 09:16] LABS: ALK PHOS 52 U/L (45-117); BILIRUBIN,TOTAL 0.4 mg/dL (0.2-1.0); CREATININE 1.3 mg/dL (0.7-1.3); PHOSPHOROUS 1.5 mg/dL (2.5-4.9); SGOT/AST 33 U/L (15-37); SGPT/ALT 19 U/L (12-78); TOT PROT 5.4 g/dl (6.4-8.2)
[2017-01-31] MEDS: CEFTRIAXONE 1 GM in DEXTROSE 5%-WATER - 50 ML IVPB SCH (10:39)
--- NOTE | 2017-01-31 10:45 | PN ---
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 Patient had a fever of 101.5 and a non productive cough. He denied hemoptysis, chest pain, nausea, diarrhea, recent travel, and sick contacts. Patient has no history of pulmonary issues. Today I've seen and examined the patient. Patient states he feels much better than yesterday after he was administered the antibiotics. He still feels tired and fatigued. He denies chills, hemoptysis, diarrhea, nausea, and chest pain. Vital Signs Period Temp Pulse Resp BP Sys/Bull Pulse Ox Last 24 Hr 98.5 F-102.1 F 70-100 18-20 122-150/65-82 92 GENERAL: The patient is awake, alert, and fully oriented, in no acute distress. HEAD: Normal with no signs of trauma. EYES: PERRL, extraocular movements intact, sclera anicteric, conjunctiva clear. No ptosis. ENT: Ears normal, nares patent, oropharynx clear without exudates, moist mucous membranes. LUNGS: Decreased breath sounds on bases, no wheezes, no crackles, no accessory muscle use. HEART: Regular rate and rhythm, S1, S2 without murmur, rub or gallop. ABDOMEN: Soft, nontender, nondistended, normoactive bowel sounds, no guarding, no rebound, no hepatosplenomegaly, no masses. EXTREMITIES: warm, well-perfused, no edema. PSYCH: Normal mood, normal affect. SKIN: Warm, dry, normal turgor, no rashes or lesions noted Laboratory Results - last 24 hr 01/30/17 01/31/17 01/31/17 06:00 06:30 06:30 WBC 8.1 11.6 H D RBC 4.08 4.36 Hgb 11.8 12.4 Hct 34.9 L 37.6 MCV 85.6 86.3 MCHC 33.7 32.9 RDW 15.9 16.1 H Plt Count 149 196 D MPV 8.7 8.9 Neutrophils % 83.0 H Y Lymphocytes % 12.0 D Y Monocytes % 2.0 L Band Neutrophils 3.0 D Platelet Estimate Slt decreased Platelet Comment No clotting detected Hypochromic-Microcytic 1+ Anisocytosis 1+ Sodium 141 Potassium 3.4 L Chloride 102 Carbon Dioxide 28 Anion Gap 11 BUN 27 H Creatinine 1.3 Creat Clearance w eGFR 53.39 Random Glucose 106 Calcium 10.2 H Phosphorus 1.5 L D Magnesium 2.1 D Total Bilirubin 0.4 AST 33 ALT 19 Alkaline Phosphatase 52 Total Protein 5.4 L Albumin 2.7 L Active Medications Generic Name Dose Route Start Last Admin Trade Name Js PRN Reason Stop Dose Admin Acetaminophen 650 mg 01/29/17 18:40 01/31/17 06:54 Tylenol - PO 650 mg Q6H PRN Administration FEVER OR PAIN Amlodipine Besylate 5 mg 01/30/17 10:00 01/31/17 09:12 Norvasc - PO 5 mg DAILY FREDY Administration Aspirin 81 mg 01/30/17 10:00 01/31/17 09:12 Asa - PO 81 mg DAILY FREDY Administration Atorvastatin Calcium 10 mg 01/29/17 22:00 01/30/17 21:22 Lipitor - PO 10 mg HS FREDY Administration Sodium Chloride 1,000 mls @ 100 mls/hr 01/29/17 18:45 01/31/17 08:14 Normal Saline - IV 100 mls/hr ASDIR FREDY Administration Azithromycin 250 mls @ 250 mls/hr 01/30/17 10:00 01/31/17 09:12 Zithromax 500mg Ivpb (Pre-Docked) IVPB 250 mls/hr DAILY FREDY Administration Ceftriaxone Sodium 1 gm/ 50 mls @ 100 mls/hr 01/30/17 10:04 01/30/17 12:11 Dextrose IVPB 100 mls/hr DAILY FREDY Administration Magnesium Oxide 400 mg 01/29/17 22:00 01/31/17 09:12 Mag-Ox - PO 400 mg BID FREDY Administration Metoprolol Succinate 50 mg 01/30/17 10:00 01/31/17 09:12 Toprol Xl - PO 50 mg DAILY FREDY Administration (Ibrutinib) 0 mg 01/31/17 07:00 01/31/17 06:22 Imbruvica 140 Mg- PO 420 mg Patient's Own Med- DAILY@0700 FREDY Administration Non-Form Pantoprazole Sodium 40 mg 01/30/17 10:00 01/31/17 09:12 Protonix - PO 40 mg DAILY FREDY Administration Prednisone 10 mg 01/30/17 10:00 01/31/17 09:12 Deltasone - PO 10 mg DAILY FREDY Administration Quinapril HCl 40 mg 01/30/17 10:00 01/31/17 09:11 Accupril - PO 40 mg DAILY FREDY Administration Tamsulosin HCl 0.4 mg 01/30/17 08:30 01/31/17 08:14 Flomax - PO 0.4 mg DAILY@0830 FREDY Administration Chest CT: CT chest completed demonstrating multiple abnormal findings. Acute bilateral upper lobe pulmonary alveolar bronchopneumonia identified. Multifocal large irregular nodular lesions in both lungs are seen in multiple segments raising suspicion for either lymphomatous infiltrates in the lung versus nodular metastatic foci. Some of these nodular foci may be inflammatory and related to the underlying pneumonia, clinical correlation and close follow-up monitoring after full course of antibiotic treatment is indicated. No CT evidence of recurrent lymphoma in the axilla or mediastinum however large bulky carin masses are seen in the retroperitoneum consistent with recurrent lymphoma. Follow-up with oncology service to determine further management and consideration to PET/CT scan to evaluate for active disease. ASSESSMENT/PLAN: Community acquired pneumonia History of CLL Hypercalcemia CAD s/p CABG HTN Hypercholesterolemia CKD - continue ceftriaxone/azithromycin - continue IV hydration for hypercalcemia - CRP and ESR ordered - Determine diagnostic procedure with pulmonary team (bronchoscopy/VATs/TNA) - monitor urine output, creatinine - DVT prophylaxis Will follow Bulmaro Dorantes MD Visit type - Emergency Visit Emergency Visit: Yes ED Registration Date: 01/29/17 Care time: The patient presented to the Emergency Department on the above date and was hospitalized for further evaluation of their emergent condition. - New Patient This patient is new to me today: Yes Date on this admission: 01/31/17 - Critical Care Critical Care patient: No
[2017-01-31 11:00] LABS: METAMYELOCYTE 3 % (0-2); PLATELET ESTIMATE ADEQUATE (NORMAL)
--- NOTE | 2017-01-31 12:41 | PN ---
Progress Note, Physician Chief Complaint: Mr Saucedo says he is feeling better, his breathing is improved. No cp or n/v. - Current Medication List Current Medications: Active Medications Acetaminophen (Tylenol -) 650 mg PO Q6H PRN PRN Reason: FEVER OR PAIN Last Admin: 01/31/17 06:54 Dose: 650 mg Amlodipine Besylate (Norvasc -) 5 mg PO DAILY [facility] Last Admin: 01/31/17 09:12 Dose: 5 mg Aspirin (Asa -) 81 mg PO DAILY [facility] Last Admin: 01/31/17 09:12 Dose: 81 mg Atorvastatin Calcium (Lipitor -) 10 mg PO HS [facility] Last Admin: 01/30/17 21:22 Dose: 10 mg Sodium Chloride (Normal Saline -) 1,000 mls @ 100 mls/hr IV ASDIR [facility] Last Admin: 01/31/17 08:14 Dose: 100 mls/hr Azithromycin (Zithromax 500mg Ivpb (Pre-Docked)) 250 mls @ 250 mls/hr IVPB DAILY [facility] Last Admin: 01/31/17 09:12 Dose: 250 mls/hr Ceftriaxone Sodium 1 gm/ (Dextrose) 50 mls @ 100 mls/hr IVPB DAILY [facility] Last Admin: 01/31/17 10:39 Dose: 100 mls/hr Magnesium Oxide (Mag-Ox -) 400 mg PO BID [facility] Last Admin: 01/31/17 09:12 Dose: 400 mg Metoprolol Succinate (Toprol Xl -) 50 mg PO DAILY [facility] Last Admin: 01/31/17 09:12 Dose: 50 mg (Ibrutinib) Imbruvica 140 Mg- Patient's Own Med- Non-Form 0 mg PO DAILY@0700 [facility] Last Admin: 01/31/17 06:22 Dose: 420 mg Pantoprazole Sodium (Protonix -) 40 mg PO DAILY [facility] Last Admin: 01/31/17 09:12 Dose: 40 mg Prednisone (Deltasone -) 10 mg PO DAILY [facility] Last Admin: 01/31/17 09:12 Dose: 10 mg Quinapril HCl (Accupril -) 40 mg PO DAILY [facility] Last Admin: 01/31/17 09:11 Dose: 40 mg Tamsulosin HCl (Flomax -) 0.4 mg PO DAILY@0830 [facility] Last Admin: 01/31/17 08:14 Dose: 0.4 mg - Objective Vital Signs: Vital Signs Temperature 97.6 F 01/31/17 10:42 Pulse Rate 92 H 01/31/17 08:29 Respiratory Rate 20 01/31/17 08:29 Blood Pressure 150/72 01/31/17 08:29 O2 Sat by Pulse Oximetry (%) 93 L 01/31/17 09:00 Constitutional: Yes: Well Nourished, No Distress, Calm Cardiovascular: Yes: Regular Rate and Rhythm. No: Gallop, Murmur, Rub Respiratory: Yes: Regular, Rhonchi. No: CTA Bilaterally, Rales, Wheezes Gastrointestinal: Yes: Normal Bowel Sounds, Soft. No: Distention, Tenderness Extremities: Yes: WNL Edema: No Labs: CBC, BMP 01/31/17 06:30 01/31/17 06:30 Problem List - Problems (1) Pneumonia, community acquired Code(s): J18.9 - PNEUMONIA, UNSPECIFIED ORGANISM (2) CKD (chronic kidney disease) Code(s): N18.9 - CHRONIC KIDNEY DISEASE, UNSPECIFIED Qualifiers: Chronic kidney disease stage: stage 2 (mild) Qualified Code(s): N18.2 - Chronic kidney disease, stage 2 (mild) (3) CLL (chronic lymphocytic leukemia) Code(s): C91.10 - CHRONIC LYMPHOCYTIC LEUK OF B-CELL TYPE NOT ACHIEVE REMIS (4) CAD (coronary artery disease) Code(s): I25.10 - ATHSCL HEART DISEASE OF [place] CORONARY ARTERY W/O ANG PCTRS (5) HLD (hyperlipidemia) Code(s): E78.5 - HYPERLIPIDEMIA, UNSPECIFIED (6) HTN (hypertension) Code(s): I10 - ESSENTIAL (PRIMARY) HYPERTENSION (7) Hypercalcemia Code(s): E83.52 - HYPERCALCEMIA Assessment/Plan (1) Pneumonia, community acquired Assessment/Plan: -patient with fevers -ID following -continue rocephin and zithromax day 3 Code(s): J18.9 - PNEUMONIA, UNSPECIFIED ORGANISM (2) CKD (chronic kidney disease) Assessment/Plan: -at baseline -monitor Code(s): N18.9 - CHRONIC KIDNEY DISEASE, UNSPECIFIED Qualifiers: Chronic kidney disease stage: stage 2 (mild) Qualified Code(s): N18.2 - Chronic kidney disease, stage 2 (mild) (3) CLL (chronic lymphocytic leukemia) Assessment/Plan: -continue home ibrutinib -appreciate oncology assistance Code(s): C91.10 - CHRONIC LYMPHOCYTIC LEUK OF B-CELL TYPE NOT ACHIEVE REMIS (4) CAD (coronary artery disease) Assessment/Plan: -quiescent, no chest pain -continue home regimen Code(s): I25.10 - ATHSCL HEART DISEASE OF [place] CORONARY ARTERY W/O ANG PCTRS (5) HLD (hyperlipidemia) Assessment/Plan: -continue statin Code(s): E78.5 - HYPERLIPIDEMIA, UNSPECIFIED (6) HTN (hypertension) Assessment/Plan: -controlled -continue norvasc, toprol xl, and quinapril Code(s): I10 - ESSENTIAL (PRIMARY) HYPERTENSION (7) Hypercalcemia -corrected calcium 11 -case d/w nephrology -continue hydration
--- NOTE | 2017-01-31 14:48 | PN ---
Progress Note, Physician History of Present Illness: Reports occasional cough, scant sputum production Recurrent temp noted No c/o chest pain/ dyspnea CT shows bilateral infiltrates and nodules - Current Medication List Current Medications: Active Medications Acetaminophen (Tylenol -) 650 mg PO Q6H PRN PRN Reason: FEVER OR PAIN Last Admin: 01/31/17 06:54 Dose: 650 mg Amlodipine Besylate (Norvasc -) 5 mg PO DAILY [facility] Last Admin: 01/31/17 09:12 Dose: 5 mg Aspirin (Asa -) 81 mg PO DAILY [facility] Last Admin: 01/31/17 09:12 Dose: 81 mg Atorvastatin Calcium (Lipitor -) 10 mg PO HS [facility] Last Admin: 01/30/17 21:22 Dose: 10 mg Sodium Chloride (Normal Saline -) 1,000 mls @ 100 mls/hr IV ASDIR [facility] Last Admin: 01/31/17 08:14 Dose: 100 mls/hr Azithromycin (Zithromax 500mg Ivpb (Pre-Docked)) 250 mls @ 250 mls/hr IVPB DAILY [facility] Last Admin: 01/31/17 09:12 Dose: 250 mls/hr Ceftriaxone Sodium 1 gm/ (Dextrose) 50 mls @ 100 mls/hr IVPB DAILY [facility] Last Admin: 01/31/17 10:39 Dose: 100 mls/hr Magnesium Oxide (Mag-Ox -) 400 mg PO BID [facility] Last Admin: 01/31/17 09:12 Dose: 400 mg Metoprolol Succinate (Toprol Xl -) 50 mg PO DAILY [facility] Last Admin: 01/31/17 09:12 Dose: 50 mg (Ibrutinib) Imbruvica 140 Mg- Patient's Own Med- Non-Form 0 mg PO DAILY@0700 [facility] Last Admin: 01/31/17 06:22 Dose: 420 mg Pantoprazole Sodium (Protonix -) 40 mg PO DAILY [facility] Last Admin: 01/31/17 09:12 Dose: 40 mg Prednisone (Deltasone -) 10 mg PO DAILY [facility] Last Admin: 01/31/17 09:12 Dose: 10 mg Quinapril HCl (Accupril -) 40 mg PO DAILY [facility] Last Admin: 01/31/17 09:11 Dose: 40 mg Tamsulosin HCl (Flomax -) 0.4 mg PO DAILY@0830 [facility] Last Admin: 01/31/17 08:14 Dose: 0.4 mg - Objective Vital Signs: Vital Signs Temperature 97.6 F 01/31/17 10:42 Pulse Rate 92 H 01/31/17 08:29 Respiratory Rate 20 01/31/17 08:29 Blood Pressure 150/72 01/31/17 08:29 O2 Sat by Pulse Oximetry (%) 93 L 01/31/17 09:00 Constitutional: Yes: No Distress Eyes: Yes: Conjunctiva Clear Cardiovascular: Yes: Regular Rate and Rhythm, Murmur, S1, S2 Respiratory: Yes: Other (+ crepitations, lung sepulveda bilaterally) Gastrointestinal: Yes: Normal Bowel Sounds, Soft. No: Tenderness Edema: No Labs: CBC, BMP 01/31/17 06:30 01/31/17 06:30 Assessment/Plan Bilateral pneumonia Recurrent fever CLL PCN allergy Await c/s Continue empiric zithromax/ ceftriaxone
[2017-01-31] MEDS ORDERED: POTASSIUM CHLORIDE TABS 20 MEQ TABLET.ER (FP) PO ONE (15:21)
--- NOTE | 2017-01-31 15:21 | PN ---
Progress Note, Physician History of Present Illness: Pt seen and examined at bedside. He is awake and alert. He appears more comfortable today. He says he feels better. - Current Medication List Current Medications: Active Medications Acetaminophen (Tylenol -) 650 mg PO Q6H PRN PRN Reason: FEVER OR PAIN Last Admin: 01/31/17 06:54 Dose: 650 mg Amlodipine Besylate (Norvasc -) 5 mg PO DAILY [facility] Last Admin: 01/31/17 09:12 Dose: 5 mg Aspirin (Asa -) 81 mg PO DAILY [facility] Last Admin: 01/31/17 09:12 Dose: 81 mg Atorvastatin Calcium (Lipitor -) 10 mg PO HS [facility] Last Admin: 01/30/17 21:22 Dose: 10 mg Sodium Chloride (Normal Saline -) 1,000 mls @ 100 mls/hr IV ASDIR [facility] Last Admin: 01/31/17 08:14 Dose: 100 mls/hr Azithromycin (Zithromax 500mg Ivpb (Pre-Docked)) 250 mls @ 250 mls/hr IVPB DAILY [facility] Last Admin: 01/31/17 09:12 Dose: 250 mls/hr Ceftriaxone Sodium 1 gm/ (Dextrose) 50 mls @ 100 mls/hr IVPB DAILY [facility] Last Admin: 01/31/17 10:39 Dose: 100 mls/hr Magnesium Oxide (Mag-Ox -) 400 mg PO BID [facility] Last Admin: 01/31/17 09:12 Dose: 400 mg Metoprolol Succinate (Toprol Xl -) 50 mg PO DAILY [facility] Last Admin: 01/31/17 09:12 Dose: 50 mg (Ibrutinib) Imbruvica 140 Mg- Patient's Own Med- Non-Form 0 mg PO DAILY@0700 [facility] Last Admin: 01/31/17 06:22 Dose: 420 mg Pantoprazole Sodium (Protonix -) 40 mg PO DAILY [facility] Last Admin: 01/31/17 09:12 Dose: 40 mg Prednisone (Deltasone -) 10 mg PO DAILY [facility] Last Admin: 01/31/17 09:12 Dose: 10 mg Quinapril HCl (Accupril -) 40 mg PO DAILY [facility] Last Admin: 01/31/17 09:11 Dose: 40 mg Tamsulosin HCl (Flomax -) 0.4 mg PO DAILY@0830 [facility] Last Admin: 01/31/17 08:14 Dose: 0.4 mg - Objective Vital Signs: Vital Signs Temperature 98.2 F 01/31/17 15:06 Pulse Rate 69 01/31/17 15:06 Respiratory Rate 20 01/31/17 08:29 Blood Pressure 123/94 01/31/17 15:06 O2 Sat by Pulse Oximetry (%) 93 L 01/31/17 09:00 Constitutional: Yes: Calm Eyes: Yes: Conjunctiva Clear HENT: Yes: Atraumatic Cardiovascular: Yes: S1, S2 Respiratory: Yes: CTA Bilaterally Gastrointestinal: Yes: Soft Genitourinary: Yes: WNL Edema: No Neurological: Yes: Oriented Psychiatric: Yes: Oriented Labs: CBC, BMP 01/31/17 06:30 01/31/17 06:30 Problem List - Problems (1) CLL (chronic lymphocytic leukemia) Code(s): C91.10 - CHRONIC LYMPHOCYTIC LEUK OF B-CELL TYPE NOT ACHIEVE REMIS (2) Hypercalcemia Code(s): E83.52 - HYPERCALCEMIA Assessment/Plan Current Medications Generic Name Dose Route Start Last Admin Trade Name Freq PRN Reason Stop Dose Admin Acetaminophen 650 mg 01/29/17 18:40 01/31/17 06:54 Tylenol - PO 650 mg Q6H PRN Administration FEVER OR PAIN Amlodipine Besylate 5 mg 01/30/17 10:00 01/31/17 09:12 Norvasc - PO 5 mg DAILY [facility] Administration Aspirin 81 mg 01/30/17 10:00 01/31/17 09:12 Asa - PO 81 mg DAILY [facility] Administration Atorvastatin Calcium 10 mg 01/29/17 22:00 01/30/17 21:22 Lipitor - PO 10 mg HS [facility] Administration Sodium Chloride 1,000 mls @ 100 mls/hr 01/29/17 18:45 01/31/17 08:14 Normal Saline - IV 100 mls/hr ASDIR [facility] Administration Azithromycin 250 mls @ 250 mls/hr 01/30/17 10:00 01/31/17 09:12 Zithromax 500mg Ivpb (Pre-Docked) IVPB 250 mls/hr DAILY [facility] Administration Ceftriaxone Sodium 1 gm/ 50 mls @ 100 mls/hr 01/30/17 10:04 01/31/17 10:39 Dextrose IVPB 100 mls/hr DAILY [facility] Administration Magnesium Oxide 400 mg 01/29/17 22:00 01/31/17 09:12 Mag-Ox - PO 400 mg BID [facility] Administration Metoprolol Succinate 50 mg 01/30/17 10:00 01/31/17 09:12 Toprol Xl - PO 50 mg DAILY [facility] Administration (Ibrutinib) 0 mg 01/31/17 07:00 01/31/17 06:22 Imbruvica 140 Mg- PO 420 mg Patient's Own Med- DAILY@0700 [facility] Administration Non-Form Pantoprazole Sodium 40 mg 01/30/17 10:00 01/31/17 09:12 Protonix - PO 40 mg DAILY [facility] Administration Prednisone 10 mg 01/30/17 10:00 01/31/17 09:12 Deltasone - PO 10 mg DAILY [facility] Administration Quinapril HCl 40 mg 01/30/17 10:00 01/31/17 09:11 Accupril - PO 40 mg DAILY [facility] Administration Tamsulosin HCl 0.4 mg 01/30/17 08:30 01/31/17 08:14 Flomax - PO 0.4 mg DAILY@0830 [facility] Administration Impression 1. Hypercalcemia 2. CAD 3. HTN 4. Chol 5. hx leukemia 6. non hodgkins lymphoma 7. CKD 8. hypokalemia Plan - calcium is elevated, will keep on fluids - oncology input appreciated, will need follow up - follow up pth, will likely be low - replace potassium - check mag - discussed with attending Dr Hopper
--- NOTE | 2017-01-31 16:06 | PN ---
Teaching Attending Note Name of Resident: Kalie Dorantes ATTENDING PHYSICIAN STATEMENT I saw and evaluated the patient. I reviewed the resident's note and discussed the case with the resident. I agree with the resident's findings and plan as documented. SUBJECTIVE:sob/cough improved OBJECTIVE:crackles right base ASSESSMENT AND PLAN: INFILTRATES WITH SCATTERED NODULES IN AN IMUNOCOMPROMISED HOST AGREE WITH PANCULTURE EMPIRIC ANTIBIOTIC COVERAGE MAY NEED DIAGNOSTIC PROCEDURE TO R/O ATYPICAL INFECTION VS LYMPHOCYTIC INFILTRATES/NODULES IV HYDRATION FOR HYPERCALCEMIA WILL FOLLOW Elena CHRISTIANSON MD
[2017-01-31] MEDS: ATORVASTATIN CA 10 MG TABLET (FP) PO SCH (21:51)
[2017-02-01] MEDS: ACETAMINOPHEN 325 MG TABLET (FP) PO PRN (03:58)
[2017-02-01] MEDS ORDERED: PT OWN MED DRAWER 7, Y5N ONE (06:06)
[2017-02-01] MEDS: ALBUTEROL SO4 0.083% IH SOL 2.5 MG/3 ML VIAL.NEB. NEB PRN (06:43)
--- NOTE | 2017-02-01 07:19 | PN ---
Progress Note (short form) - Note Progress Note: PATIENT WITH MILD RESPIRATORY DISTRESS . NO CP / NO PALPITATIONS. ADMITTED WITH PNEUMONIA / HY OF CLL / NHL / HYPERCA ++. ON ROCEPHIN / ZITHROMAX. I.D. FOLLOWUP APPRECIATED . PULMONARY TO EVALUATE FOR POSSIBLE VATS / BRONCHOSOPY WITH ABNORMAL CT SCAN ++ NODULES. R/O ATYPICAL PNA / R/O MALIGNANCY. Laboratory Tests 01/31/17 01/31/17 01/31/17 06:30 06:30 12:35 WBC 11.6 H D RBC 4.36 Hgb 12.4 Hct 37.6 Plt Count 196 D Sodium 141 Potassium 3.4 L Chloride 102 Carbon Dioxide 28 Anion Gap 11 BUN 27 H Creatinine 1.3 Creat Clearance w eGFR 53.39 Random Glucose 106 Calcium 10.2 H Phosphorus 1.5 L D Magnesium 2.1 D Total Bilirubin 0.4 AST 33 ALT 19 Alkaline Phosphatase 52 C-Reactive Protein 10.7 H Total Protein 5.4 L Albumin 2.7 L P/E <> BP 144 / 74 . TEMP . 99.7 RR 20 HR 90 HEENT <> NECK SUPPLE / CAROTIDS 2 + COR >< S 1 S 2 NO M / NO G CHEST <> DECREASED BS AT BASES / RHONCHI B/L ABD <> SOFT / NONTENDER / NO HSM EXT <> NO CALF TENDERNESS IMP <> PNEUMONIA R/O LUNG MALIGNANCY R/O ATYPICAL PNA NHL CLL CKD CAD HYPERCA++ HTN PLAN : IV FLUIDS FOLLOW LABS CONTINUE ANTIBIOTICS I.D / PULMONARY FOLLOWUP ONCOLOGY FOLLOWUP .
[2017-02-01 07:43] LABS: MCH 28.8 pg (25.7-33.7); MCHC 33.8 g/dl (32.0-35.9); MEAN CELL VOLUME 85.2 fl (80-96); MEAN PLT VOLUME 8.2 fl (7.5-11.1); PLATELET COUNT 149 K/MM3 (134-434); WHITE BLOOD COUNT 8.2 K/mm3 (4.0-10.0)
[2017-02-01 07:58] LABS: ALBUMIN 2.4 g/dl (3.4-5.0); ANION GAP 10 (8-16); CALCIUM 9.2 mg/dL (8.5-10.1); CO2 28 mmol/L (21-32); GLUCOSE,RANDOM 99 mg/dL (74-106); MAGNESIUM 1.7 mg/dL (1.8-2.4)
[2017-02-01 08:02] LABS: ALK PHOS 46 U/L (45-117); BILIRUBIN,TOTAL 0.5 mg/dL (0.2-1.0); PHOSPHOROUS 1.4 mg/dL (2.5-4.9); SGOT/AST 30 U/L (15-37); SGPT/ALT 17 U/L (12-78); TOT PROT 4.8 g/dl (6.4-8.2)
--- NOTE | 2017-02-01 09:51 | PN ---
Progress Note, Physician History of Present Illness: Reports cough with yellow sputum production No c/o chest pain/ dyspnea Temps down - Current Medication List Current Medications: Active Medications Acetaminophen (Tylenol -) 650 mg PO Q6H PRN PRN Reason: FEVER OR PAIN Last Admin: 02/01/17 03:58 Dose: 650 mg Albuterol Sulfate (Ventolin 0.083% Nebulizer Soln -) 1 amp NEB Q8H PRN PRN Reason: SHORT OF BREATH/WHEEZING Last Admin: 02/01/17 06:43 Dose: 1 amp Amlodipine Besylate (Norvasc -) 5 mg PO DAILY [facility] Last Admin: 01/31/17 09:12 Dose: 5 mg Aspirin (Asa -) 81 mg PO DAILY [facility] Last Admin: 01/31/17 09:12 Dose: 81 mg Atorvastatin Calcium (Lipitor -) 10 mg PO HS [facility] Last Admin: 01/31/17 21:51 Dose: 10 mg Sodium Chloride (Normal Saline -) 1,000 mls @ 100 mls/hr IV ASDIR [facility] Last Admin: 01/31/17 18:55 Dose: Not Given Azithromycin (Zithromax 500mg Ivpb (Pre-Docked)) 250 mls @ 250 mls/hr IVPB DAILY [facility] Last Admin: 01/31/17 09:12 Dose: 250 mls/hr Ceftriaxone Sodium 1 gm/ (Dextrose) 50 mls @ 100 mls/hr IVPB DAILY [facility] Last Admin: 01/31/17 10:39 Dose: 100 mls/hr Magnesium Oxide (Mag-Ox -) 400 mg PO BID [facility] Last Admin: 01/31/17 21:51 Dose: 400 mg Metoprolol Succinate (Toprol Xl -) 50 mg PO DAILY [facility] Last Admin: 01/31/17 09:12 Dose: 50 mg (Ibrutinib) Imbruvica 140 Mg- Patient's Own Med- Non-Form 0 mg PO DAILY@0700 [facility] Last Admin: 02/01/17 06:14 Dose: 420 mg Pantoprazole Sodium (Protonix -) 40 mg PO DAILY [facility] Last Admin: 01/31/17 09:12 Dose: 40 mg Potassium Chloride (K-Dur -) 20 meq PO ONCE ONE Stop: 02/01/17 10:01 Prednisone (Deltasone -) 15 mg PO DAILY [facility] Quinapril HCl (Accupril -) 40 mg PO DAILY [facility] Last Admin: 01/31/17 09:11 Dose: 40 mg Tamsulosin HCl (Flomax -) 0.4 mg PO DAILY@0830 [facility] Last Admin: 01/31/17 08:14 Dose: 0.4 mg - Objective Vital Signs: Vital Signs Temperature 98.4 F 02/01/17 09:17 Pulse Rate 97 H 02/01/17 09:17 Respiratory Rate 16 02/01/17 09:17 Blood Pressure 152/79 02/01/17 09:17 O2 Sat by Pulse Oximetry (%) 93 L 01/31/17 21:00 Constitutional: Yes: No Distress Eyes: Yes: Conjunctiva Clear Cardiovascular: Yes: Regular Rate and Rhythm, S1, S2 Respiratory: Yes: Rhonchi Gastrointestinal: Yes: Normal Bowel Sounds, Soft. No: Tenderness Edema: No Labs: CBC, BMP 02/01/17 06:00 02/01/17 06:00 Assessment/Plan Bilateral pneumonia Recurrent fever CLL PCN allergy Await sputum c/s Continue empiric zithromax/ ceftriaxone
--- NOTE | 2017-02-01 09:53 | PN ---
Progress Note (short form) - Note Progress Note: RENAL Pt is awake and alert comfortable no specific complaints Last Vital Signs Temp Pulse Resp BP Pulse Ox 98.4 F 97 H 16 152/79 93 L 02/01/17 09:17 02/01/17 09:17 02/01/17 09:17 02/01/17 09:17 01/31/17 21:00 lungs bilat wheezing cvs s1s2 rr abd soft, not tender no mass palpated ext no edema neuro a+ox3 skin no rashes Current Medications Generic Name Dose Route Start Last Admin Trade Name Freq PRN Reason Stop Dose Admin Acetaminophen 650 mg 01/29/17 18:40 02/01/17 03:58 Tylenol - PO 650 mg Q6H PRN Administration FEVER OR PAIN Albuterol Sulfate 1 amp 01/31/17 16:16 02/01/17 06:43 Ventolin 0.083% Nebulizer Soln - NEB 1 amp Q8H PRN Administration SHORT OF BREATH/WHEEZING Amlodipine Besylate 5 mg 01/30/17 10:00 01/31/17 09:12 Norvasc - PO 5 mg DAILY [facility] Administration Aspirin 81 mg 01/30/17 10:00 01/31/17 09:12 Asa - PO 81 mg DAILY [facility] Administration Atorvastatin Calcium 10 mg 01/29/17 22:00 01/31/17 21:51 Lipitor - PO 10 mg HS [facility] Administration Sodium Chloride 1,000 mls @ 100 mls/hr 01/29/17 18:45 01/31/17 18:55 Normal Saline - IV Not Given ASDIR [facility] Azithromycin 250 mls @ 250 mls/hr 01/30/17 10:00 01/31/17 09:12 Zithromax 500mg Ivpb (Pre-Docked) IVPB 250 mls/hr DAILY [facility] Administration Ceftriaxone Sodium 1 gm/ 50 mls @ 100 mls/hr 01/30/17 10:04 01/31/17 10:39 Dextrose IVPB 100 mls/hr DAILY [facility] Administration Magnesium Oxide 400 mg 01/29/17 22:00 01/31/17 21:51 Mag-Ox - PO 400 mg BID [facility] Administration Metoprolol Succinate 50 mg 01/30/17 10:00 01/31/17 09:12 Toprol Xl - PO 50 mg DAILY [facility] Administration (Ibrutinib) 0 mg 01/31/17 07:00 02/01/17 06:14 Imbruvica 140 Mg- PO 420 mg Patient's Own Med- DAILY@0700 [facility] Administration Non-Form Pantoprazole Sodium 40 mg 01/30/17 10:00 01/31/17 09:12 Protonix - PO 40 mg DAILY [facility] Administration Potassium Chloride 20 meq 02/01/17 10:00 K-Dur - PO 02/01/17 10:01 ONCE ONE Prednisone 15 mg 02/01/17 10:00 Deltasone - PO DAILY [facility] Quinapril HCl 40 mg 01/30/17 10:00 01/31/17 09:11 Accupril - PO 40 mg DAILY [facility] Administration Tamsulosin HCl 0.4 mg 01/30/17 08:30 01/31/17 08:14 Flomax - PO 0.4 mg DAILY@0830 [facility] Administration CBC, BMP 02/01/17 06:00 02/01/17 06:00 Impression 1. Hypercalcemia with associated hypophosphatemia may be due to high pth 2. CAD 3. HTN 4. Chol 5. hx leukemia 6. 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 CKD 8. hypokalemia Plan - calcium is elevated, will keep on fluids - oncology input appreciated, will need follow up - await pth - replace potassium MV
--- NOTE | 2017-02-01 09:53 | PN ---
Progress Note (short form) - Note Progress Note: PULMONARY Feels slightly improved. No further fevers recorded. +cough with thick yellow sputum. Last Vital Signs Temp Pulse Resp BP Pulse Ox 98.4 F 97 H 16 152/79 93 L 02/01/17 09:17 02/01/17 09:17 02/01/17 09:17 02/01/17 09:17 01/31/17 21:00 Gen: NAD at rest Heart: RRR Lung: scattered rhonchi Abd: soft, nontender Ext: no edema CBC, BMP 02/01/17 06:00 02/01/17 06:00 Active Medications Acetaminophen (Tylenol -) 650 mg PO Q6H PRN PRN Reason: FEVER OR PAIN Last Admin: 02/01/17 03:58 Dose: 650 mg Albuterol Sulfate (Ventolin 0.083% Nebulizer Soln -) 1 amp NEB Q8H PRN PRN Reason: SHORT OF BREATH/WHEEZING Last Admin: 02/01/17 06:43 Dose: 1 amp Amlodipine Besylate (Norvasc -) 5 mg PO DAILY [facility] Last Admin: 01/31/17 09:12 Dose: 5 mg Aspirin (Asa -) 81 mg PO DAILY [facility] Last Admin: 01/31/17 09:12 Dose: 81 mg Atorvastatin Calcium (Lipitor -) 10 mg PO HS [facility] Last Admin: 01/31/17 21:51 Dose: 10 mg Sodium Chloride (Normal Saline -) 1,000 mls @ 100 mls/hr IV ASDIR [facility] Last Admin: 01/31/17 18:55 Dose: Not Given Azithromycin (Zithromax 500mg Ivpb (Pre-Docked)) 250 mls @ 250 mls/hr IVPB DAILY [facility] Last Admin: 01/31/17 09:12 Dose: 250 mls/hr Ceftriaxone Sodium 1 gm/ (Dextrose) 50 mls @ 100 mls/hr IVPB DAILY [facility] Last Admin: 01/31/17 10:39 Dose: 100 mls/hr Magnesium Oxide (Mag-Ox -) 400 mg PO BID [facility] Last Admin: 01/31/17 21:51 Dose: 400 mg Metoprolol Succinate (Toprol Xl -) 50 mg PO DAILY [facility] Last Admin: 01/31/17 09:12 Dose: 50 mg (Ibrutinib) Imbruvica 140 Mg- Patient's Own Med- Non-Form 0 mg PO DAILY@0700 [facility] Last Admin: 02/01/17 06:14 Dose: 420 mg Pantoprazole Sodium (Protonix -) 40 mg PO DAILY [facility] Last Admin: 01/31/17 09:12 Dose: 40 mg Potassium Chloride (K-Dur -) 20 meq PO ONCE ONE Stop: 02/01/17 10:01 Prednisone (Deltasone -) 15 mg PO DAILY [facility] Quinapril HCl (Accupril -) 40 mg PO DAILY [facility] Last Admin: 01/31/17 09:11 Dose: 40 mg Tamsulosin HCl (Flomax -) 0.4 mg PO DAILY@0830 [facility] Last Admin: 01/31/17 08:14 Dose: 0.4 mg A/P Pneumonia likely community acquired h/o CLL CAD s/p CABG HTN Hypercholesterolemia CKD - continue ceftriaxone/azithromycin - f/u cultures, send sputum - appears to be defervescing, if remains febrile or with worsening leukocytosis , available for bronchoscopy/BAL - DVT prophylaxis - will need outpt f/u of chest imaging to ensure resolution of infiltrate Problem List - Problems (1) Pneumonia, community acquired Code(s): J18.9 - PNEUMONIA, UNSPECIFIED ORGANISM (2) CAD (coronary artery disease) Code(s): I25.10 - ATHSCL HEART DISEASE OF [place] CORONARY ARTERY W/O ANG PCTRS (3) HLD (hyperlipidemia) Code(s): E78.5 - HYPERLIPIDEMIA, UNSPECIFIED (4) HTN (hypertension) Code(s): I10 - ESSENTIAL (PRIMARY) HYPERTENSION (5) CLL (chronic lymphocytic leukemia) Code(s): C91.10 - CHRONIC LYMPHOCYTIC LEUK OF B-CELL TYPE NOT ACHIEVE REMIS
[2017-02-01] MEDS: AZITHROMYCIN IVPB 250 ML IVPB SCH (09:54)
[2017-02-01] MEDS: ASPIRIN 81 MG CHEWABLE TABLETS PO SCH (09:54)
[2017-02-01] MEDS: TAMSULOSIN HCL 0.4 MG CAP.ER.24H (FP) PO SCH (09:54)
[2017-02-01] MEDS: PANTOPRAZOLE 40 MG TABLET (FP) PO SCH (09:54)
[2017-02-01] MEDS: MAGNESIUM OXIDE 400 MG TABLET (FP) PO SCH ×2 (09:54→23:16)
[2017-02-01] MEDS: METOPROLOL SUCCINATE 50 MG TAB.SR.24H (FP) PO SCH (09:54)
[2017-02-01] MEDS: amLODIPine BESYLATE 5 MG TABLET (FP) PO SCH (09:54)
[2017-02-01] MEDS: QUINAPRIL HCL 40 MG TABLET (FP) PO SCH (09:55)
[2017-02-01] MEDS ORDERED: DEXTROSE 5%-WATER - 50 ML IVPB ONE (09:59)
[2017-02-01] MEDS ORDERED: cefTRIAXone SODIUM 1 GM VIAL ONE (09:59)
[2017-02-01] MEDS ORDERED: POTASSIUM CHLORIDE TABS 20 MEQ TABLET.ER (FP) PO ONE (10:00)
[2017-02-01] MEDS ORDERED: predniSONE 10 MG TABLET (UD) PO SCH (10:00)
[2017-02-01] MEDS: CEFTRIAXONE 1 GM in DEXTROSE 5%-WATER - 50 ML IVPB SCH (11:48)
[2017-02-01 13:24] LABS: METAMYELOCYTE 5 % (0-2); PLATELET ESTIMATE ADEQUATE (NORMAL)
[2017-02-01 14:10] LABS: CALCIUM 10.3 mg/dL (8.6-10.2)
[2017-02-01] MEDS: SODIUM CHLORIDE 1,000 ML IV SCH (18:52)
[2017-02-01] MEDS: ATORVASTATIN CA 10 MG TABLET (FP) PO SCH (23:16)
[2017-02-02] MEDS: SODIUM CHLORIDE 1,000 ML IV SCH (05:00)
[2017-02-02] MEDS: ALBUTEROL SO4 0.083% IH SOL 2.5 MG/3 ML VIAL.NEB. NEB PRN (06:20)
[2017-02-02 06:50] LABS: ALLENS TEST POSITIVE; ART PUNCT SITE RIGHT RADIAL; ARTERIAL BLOOD GAS BASE EXCESS 3.2 meq/l (-2-2); ARTERIAL BLOOD GAS HCO3 26.5 meq/L (22-26); ARTERIAL BLOOD GAS PO2 76.8 mmHg (70-100); ARTERIAL BLOOD GAS pH 7.47 (7.35-7.45); PT. ON O2? YES
[2017-02-02 06:51] LABS: LPM/O2% 7L; TYPE OF O2 AEROSOL TX
--- NOTE | 2017-02-02 06:53 | RAPID ---
Physical Examination Vital Signs: Vital Signs Temperature 98.4 F 02/01/17 22:00 Pulse Rate 69 02/01/17 22:00 Respiratory Rate 20 02/01/17 22:00 Blood Pressure 133/75 02/01/17 22:00 O2 Sat by Pulse Oximetry (%) 94 L 02/01/17 21:00 Pulse ox at time of RR 84% on 4L NC Findings/Remarks: Patient tachypneic 22, tachycardic 114, O2 sat 84% on 4 L NC. Patient reports sudden onset of sob. denies chest pain, n/v, diaphoresis Constitutional: Yes: Anxious, Mild Distress Eyes: Yes: PERRL. No: Cataracts HENT: Yes: Atraumatic, Normocephalic. No: Rhinnorhea Neck: Yes: Trachea Midline. No: Tenderness, Thyromegaly Cardiovascular: Yes: Regular Rate and Rhythm, Tachycardia, S1, S2, Other (no peripheral edema or calf tenderness). No: JVD, Murmur Respiratory: Yes: Wheezes (diffuse expiratory wheezes). No: Rhonchi Gastrointestinal: Yes: Normal Bowel Sounds, Soft. No: Tenderness Musculoskeletal: No: Joint Stiffness, Muscle Weakness Neurological: Yes: Alert, Oriented Labs: CBC, BMP 02/01/17 06:00 02/01/17 06:00 Rapid Response - Rapid Response Assessment: Patient is a 76 year old male who came in due to f.c, sob x 1 w. PMH includes CAD, HTN, Hyperlipdemia, Gastritis, GERD, Inflamatory Bowel Disease , Peptic Ulcer Disease, Other (Duodenal adenoma, Pancreatic cyst, S/P Infectious colitis on 06/07), Renal Inusuff, BPH, Small lymphocytic Lymphoma, CLL, Polycythemia Vera, Appendectomy, CABG, Cholecystectomy During RR patient in acute respiratory distress, placed on nonrebreather and given 2 nebs, wheezing decreased and O2 sat improved to 94 %, patient felt better. Denies pain. He is here being treated for CAP. This may be an exacerbation of bronchospasm associated with PNA. He denies asthma or smoking history. EKG, CXR, abg, trop, bmp, mag were ordered stat. one time symbicort was ordered for possible bronchospasm. signout given to day team for followup. Outcome: patient improved O2 sat 96%
[2017-02-02] MEDS ORDERED: BUDESONIDE/FORMETEROL FUMARATE 80/4.5 mcg INHALER IH ONE (07:11)
[2017-02-02] MEDS ORDERED: ALBUTEROL SO4 0.083% IH SOL 2.5 MG/3 ML VIAL.NEB. NEB ONE (07:13)
--- NOTE | 2017-02-02 07:31 | PN ---
Progress Note (short form) - Note Progress Note: PATIENT WITH ACUTE RESPIRATORY DISTRESS THIS AM. RAPID RESPONSE CALLED . TREATED WITH NEBULIZER . CHANGED TO 50 % VENTIMASK . CXR WITH WORSENING INFILTRATES .EKG SINUS TACH / PVC'S .TROPONIN NEGATIVE. HE COMPLAINS OF COUGH / PHLEGM. MAINTAINED ON ROCEPHIN / ZITHROMAX. FOLLOWED BY I.D. & PULMONARY. Selected Entries 02/02/17 07:03 Temperature 100.7 F H Pulse Rate 118 H Respiratory 20 Rate Blood Pressure 153/84 Laboratory Tests 02/02/17 06:39 ABG pH 7.47 H ABG pCO2 at Pt Temp 36.8 ABG pO2 at Pt Temp 76.8 ABG HCO3 26.5 H ABG O2 Sat (Measured) 96.0 ABG O2 Content 15.9 P/E <> ALERT / MORE COMFORTABLE NOW. HEENT <> NECK SUPPLE / CAROTIDS 2 + COR >< S 1 S 2 / TACHY . NO M / NO G CHEST <>RHONCHI THROUGHOUT ALL LUNG TEJEDA. ABD <> SOFT / NONTENDER / NO HSM EXT <> NO CALF TENDERNESS IMP <>ACUTE RESPIRATORY DISTRESS. PNEUMONIA R/O LUNG MALIGNANCY R/O ATYPICAL PNA NHL CLL CKD CAD HYPERCA++ HTN PLAN :AWAIT PULMONARY TO EVALUATE FOR POSSIBLE TRANSFER TO ICU. ADD I.V. STEROIDS WITH STAT DOSE NOW. CONTINUE NEBULIZER RX. CONTINUE ANTIBIOTICS I.D FOLLOWUP CARDIOLOGY CONSULT / ABNORMAL EKG / ? CHF .
[2017-02-02] MEDS ORDERED: methylPREDNISolone NA SUCC 125 MG/2 ML VIAL IVPB ONE (07:32)
[2017-02-02] MEDS ORDERED: ALBUTEROL SO4 0.083% IH SOL 2.5 MG/3 ML VIAL.NEB. NEB SCH (07:45)
[2017-02-02 08:34] LABS: ANION GAP 8 (8-16); CO2 28 mmol/L (21-32); CREATININE 1.1 mg/dL (0.7-1.3); GLUCOSE,RANDOM 107 mg/dL (74-106); MAGNESIUM 1.5 mg/dL (1.8-2.4)
[2017-02-02 08:36] LABS: TROPONIN I 0.04 ng/ml (0.00-0.05)
[2017-02-02] MEDS: TAMSULOSIN HCL 0.4 MG CAP.ER.24H (FP) PO SCH (08:48)
[2017-02-02] MEDS ORDERED: methylPREDNISolone NA SUCC 40 MG/1 ML VIAL IVPB SCH (09:00)
[2017-02-02] MEDS ORDERED: DEXTROSE 5%-WATER - 50 ML IVPB ONE (09:31)
[2017-02-02] MEDS ORDERED: PT OWN MED DRAWER 7, Y5N ONE ×2 (09:31→20:40)
[2017-02-02] MEDS ORDERED: cefTRIAXone SODIUM 1 GM VIAL ONE (09:31)
[2017-02-02] MEDS: MAGNESIUM OXIDE 400 MG TABLET (FP) PO SCH ×2 (09:37→22:18)
[2017-02-02] MEDS: amLODIPine BESYLATE 5 MG TABLET (FP) PO SCH (09:37)
[2017-02-02] MEDS: QUINAPRIL HCL 40 MG TABLET (FP) PO SCH (09:37)
[2017-02-02] MEDS: ASPIRIN 81 MG CHEWABLE TABLETS PO SCH (09:37)
[2017-02-02] MEDS: ACETAMINOPHEN 325 MG TABLET (FP) PO PRN (09:37)
[2017-02-02] MEDS: PANTOPRAZOLE 40 MG TABLET (FP) PO SCH (09:37)
[2017-02-02] MEDS: METOPROLOL SUCCINATE 50 MG TAB.SR.24H (FP) PO SCH (09:37)
[2017-02-02] MEDS ORDERED: FUROSEMIDE 40 MG/4 ML INJECTABLE VIAL IVPUSH ONE (10:02)
--- NOTE | 2017-02-02 10:06 | PN ---
Progress Note (short form) - Note Progress Note: PULMONARY/CCM Events earlier today noted, now on 50% ventimask saturating 94%. Febrile and with cough with thick yellow sputum. CXR showing significant increase in bilateral infiltrates. Last Vital Signs Temp Pulse Resp BP Pulse Ox 100.7 F H 118 H 20 153/84 94 L 02/02/17 07:03 02/02/17 07:03 02/02/17 07:03 02/02/17 07:03 02/01/17 21:00 Intake & Output 01/30/17 01/31/17 02/01/17 02/02/17 23:59 23:59 23:59 23:59 Intake Total 1950 2320 3950 800 Output Total 1400 1675 1600 1400 Balance 644 196 0698 -600 Gen: NAD at rest Heart: RRR Lung: bilateral rhonchi Abd: soft, nontender Ext: no edema CBC, BMP 02/01/17 06:00 02/02/17 06:05 Active Medications Acetaminophen (Tylenol -) 650 mg PO Q6H PRN PRN Reason: FEVER OR PAIN Last Admin: 02/02/17 09:37 Dose: 650 mg Albuterol Sulfate (Ventolin 0.083% Nebulizer Soln -) 1 amp NEB QIDR [facility] Amlodipine Besylate (Norvasc -) 5 mg PO DAILY [facility] Last Admin: 02/02/17 09:37 Dose: 5 mg Aspirin (Asa -) 81 mg PO DAILY [facility] Last Admin: 02/02/17 09:37 Dose: 81 mg Atorvastatin Calcium (Lipitor -) 10 mg PO HS [facility] Last Admin: 02/01/17 23:16 Dose: 10 mg Furosemide (Lasix Injection -) 40 mg IVPUSH ONCE ONE Stop: 02/02/17 10:03 Sodium Chloride (Normal Saline -) 1,000 mls @ 100 mls/hr IV ASDIR [facility] Last Admin: 02/02/17 05:00 Dose: 100 mls/hr Azithromycin (Zithromax 500mg Ivpb (Pre-Docked)) 250 mls @ 250 mls/hr IVPB DAILY [facility] Last Admin: 02/01/17 09:54 Dose: 250 mls/hr Ceftriaxone Sodium 1 gm/ (Dextrose) 50 mls @ 100 mls/hr IVPB DAILY [facility] Last Admin: 02/01/17 11:48 Dose: 100 mls/hr Magnesium Oxide (Mag-Ox -) 400 mg PO BID [facility] Last Admin: 02/02/17 09:37 Dose: 400 mg Methylprednisolone Sodium Succinate (Solu-Medrol -) 60 mg IVPB Q6H-IV [facility] Last Admin: 02/02/17 09:37 Dose: Not Given Metoprolol Succinate (Toprol Xl -) 50 mg PO DAILY [facility] Last Admin: 02/02/17 09:37 Dose: 50 mg (Ibrutinib) Imbruvica 140 Mg- Patient's Own Med- Non-Form 0 mg PO DAILY@0700 [facility] Last Admin: 02/01/17 06:14 Dose: 420 mg Pantoprazole Sodium (Protonix -) 40 mg PO DAILY [facility] Last Admin: 02/02/17 09:37 Dose: 40 mg Quinapril HCl (Accupril -) 40 mg PO DAILY [facility] Last Admin: 02/02/17 09:37 Dose: 40 mg Tamsulosin HCl (Flomax -) 0.4 mg PO DAILY@0830 [facility] Last Admin: 02/02/17 08:48 Dose: 0.4 mg A/P Acute Hypoxic Respiratory Failure Pneumonia h/o CLL CAD s/p CABG HTN Hypercholesterolemia CKD - agree with empiric medrol - will give trial of lasix - antibiotics per ID - f/u cultures - may need bronchoscopy/BAL as pt with persistent fevers - DVT prophylaxis - will need outpt f/u of chest imaging to ensure resolution of infiltrate - transfer to ICU for closer monitoring of worsening respiratory status Problem List - Problems (1) Pneumonia, community acquired Code(s): J18.9 - PNEUMONIA, UNSPECIFIED ORGANISM (2) CAD (coronary artery disease) Code(s): I25.10 - ATHSCL HEART DISEASE OF [place] CORONARY ARTERY W/O ANG PCTRS (3) HLD (hyperlipidemia) Code(s): E78.5 - HYPERLIPIDEMIA, UNSPECIFIED (4) HTN (hypertension) Code(s): I10 - ESSENTIAL (PRIMARY) HYPERTENSION (5) CLL (chronic lymphocytic leukemia) Code(s): C91.10 - CHRONIC LYMPHOCYTIC LEUK OF B-CELL TYPE NOT ACHIEVE REMIS
--- NOTE | 2017-02-02 11:14 | PN ---
Progress Note (short form) - Note Progress Note: RENAL Pt is awake and alert comfortable no specific complaints Last Vital Signs Temp Pulse Resp BP Pulse Ox 98.4 F 97 H 16 152/79 93 L 02/01/17 09:17 02/01/17 09:17 02/01/17 09:17 02/01/17 09:17 01/31/17 21:00 lungs crackles at bases cvs s1s2 rr abd soft, not tender no mass palpated ext no edema neuro a+ox3 skin no rashes Current Medications Generic Name Dose Route Start Last Admin Trade Name Freq PRN Reason Stop Dose Admin Acetaminophen 650 mg 01/29/17 18:40 02/02/17 09:37 Tylenol - PO 650 mg Q6H PRN Administration FEVER OR PAIN Albuterol Sulfate 1 amp 02/02/17 07:45 Ventolin 0.083% Nebulizer Soln - NEB QIDR [facility] Amlodipine Besylate 5 mg 01/30/17 10:00 02/02/17 09:37 Norvasc - PO 5 mg DAILY [facility] Administration Aspirin 81 mg 01/30/17 10:00 02/02/17 09:37 Asa - PO 81 mg DAILY [facility] Administration Atorvastatin Calcium 10 mg 01/29/17 22:00 02/01/17 23:16 Lipitor - PO 10 mg HS [facility] Administration Sodium Chloride 1,000 mls @ 100 mls/hr 01/29/17 18:45 02/02/17 05:00 Normal Saline - IV 100 mls/hr ASDIR [facility] Administration Azithromycin 250 mls @ 250 mls/hr 01/30/17 10:00 02/01/17 09:54 Zithromax 500mg Ivpb (Pre-Docked) IVPB 250 mls/hr DAILY [facility] Administration Ceftriaxone Sodium 1 gm/ 50 mls @ 100 mls/hr 01/30/17 10:04 02/01/17 11:48 Dextrose IVPB 100 mls/hr DAILY [facility] Administration Magnesium Oxide 400 mg 01/29/17 22:00 02/02/17 09:37 Mag-Ox - PO 400 mg BID FREDY Administration Methylprednisolone Sodium Succinate 60 mg 02/02/17 09:00 02/02/17 09:37 Solu-Medrol - IVPB Not Given Q6H-IV FREDY Metoprolol Succinate 50 mg 01/30/17 10:00 02/02/17 09:37 Toprol Xl - PO 50 mg DAILY FREDY Administration (Ibrutinib) 0 mg 01/31/17 07:00 02/01/17 06:14 Imbruvica 140 Mg- PO 420 mg Patient's Own Med- DAILY@0700 FREDY Administration Non-Form Pantoprazole Sodium 40 mg 01/30/17 10:00 02/02/17 09:37 Protonix - PO 40 mg DAILY FREDY Administration Potassium Chloride 40 meq 02/02/17 11:10 K-Dur - PO 02/02/17 11:11 ONCE ONE Quinapril HCl 40 mg 01/30/17 10:00 02/02/17 09:37 Accupril - PO 40 mg DAILY FREDY Administration Tamsulosin HCl 0.4 mg 01/30/17 08:30 02/02/17 08:48 Flomax - PO 0.4 mg DAILY@0830 FREDY Administration CBC, BMP 02/01/17 06:00 02/02/17 06:05 Impression 1. Hypercalcemia with associated hypophosphatemia- pth is low 2. CAD 3. HTN 4. Chol 5. hx leukemia 6. 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 CKD 8. hypokalemia Plan -dc fluids given worsening crackles and dyspnea -replace K - can get lasix if necessary MV
[2017-02-02] MEDS ORDERED: ACETAMINOPHEN 325 MG TABLET (FP) PO PRN (11:15)
[2017-02-02] MEDS ORDERED: SODIUM CHLORIDE 1,000 ML IV SCH (11:15)
--- NOTE | 2017-02-02 11:37 | PN ---
Progress Note, Physician History of Present Illness: More dyspneic CXR markedly worse with bilateral infiltrates Reports cough productive of yellowish sputum Febrile 101.6 - Current Medication List Current Medications: Active Medications Acetaminophen (Tylenol -) 650 mg PO Q6H PRN PRN Reason: FEVER OR PAIN Albuterol Sulfate (Ventolin 0.083% Nebulizer Soln -) 1 amp NEB QIDR [facility] Amlodipine Besylate (Norvasc -) 5 mg PO DAILY [facility] Aspirin (Asa -) 81 mg PO DAILY [facility] Atorvastatin Calcium (Lipitor -) 10 mg PO HS [facility] Azithromycin (Zithromax 500mg Ivpb (Pre-Docked)) 250 mls @ 250 mls/hr IVPB DAILY [facility] Ceftriaxone Sodium 1 gm/ (Dextrose) 50 mls @ 100 mls/hr IVPB DAILY [facility] Magnesium Oxide (Mag-Ox -) 400 mg PO BID [facility] Methylprednisolone Sodium Succinate (Solu-Medrol -) 60 mg IVPB Q6H-IV [facility] Metoprolol Succinate (Toprol Xl -) 50 mg PO DAILY [facility] Non-Formulary Medication (Ibrutinib [Imbruvica]) 0 mg PO DAILY@0700 [facility] Pantoprazole Sodium (Protonix -) 40 mg PO DAILY [facility] Potassium Chloride (K-Dur -) 40 meq PO ONCE ONE Stop: 02/02/17 11:11 Quinapril HCl (Accupril -) 40 mg PO DAILY [facility] Tamsulosin HCl (Flomax -) 0.4 mg PO DAILY@0830 [facility] - Objective Vital Signs: Vital Signs Temperature 101.6 F H 02/02/17 11:04 Pulse Rate 122 H 02/02/17 11:04 Respiratory Rate 28 H 02/02/17 11:04 Blood Pressure 154/70 02/02/17 11:04 O2 Sat by Pulse Oximetry (%) 96 02/02/17 11:05 Constitutional: Yes: No Distress Eyes: Yes: Conjunctiva Clear Cardiovascular: Yes: Regular Rate and Rhythm, S1, S2 Respiratory: Yes: Rhonchi Gastrointestinal: Yes: Normal Bowel Sounds, Soft. No: Tenderness Edema: No Labs: CBC, BMP 02/01/17 06:00 02/02/17 06:05 Assessment/Plan Bilateral pneumonia worsening dyspnea and infiltrates on CXR Recurrent fever CLL PCN allergy Await sputum c/s Discontinue empiric ceftriaxone. Continue zithromax Substitute cefepime/ vancomycin ICU monitoring
[2017-02-02] MEDS: AZITHROMYCIN IVPB 250 ML IVPB SCH ×2 (11:46→12:00)
[2017-02-02] MEDS: CEFTRIAXONE 1 GM in DEXTROSE 5%-WATER - 50 ML IVPB SCH (11:47)
[2017-02-02] MEDS: CEFEPIME 2 GM/100 ML BAG PRE-DOCKED IVPB SCH ×2 (12:24→17:45)
[2017-02-02] MEDS: VANCOMYCIN 1 GRAM (PRE-DOCKED) 250 ML IVPB SCH (12:24)
[2017-02-02] MEDS ORDERED: POTASSIUM CHLORIDE TABS 20 MEQ TABLET.ER (FP) PO ONE (12:30)
--- NOTE | 2017-02-02 14:09 | CON.CARD ---
Cardiology Consult (text) - Consultation Consultation Note: CC: sob, ekg abnormalities 76 yo with h/o CAD s/p CABG, HTN, HL, Gastritis, GERD, Inflamatory Bowel Disease , Peptic Ulcer Disease, Duodenal adenoma, Pancreatic cyst, Renal Inusuff, BPH, Small lymphocytic Lymphoma, CLL, Polycythemia Vera p/w fevers/sob and noted to have bilateral upper lobe pna/possible recurrence of lymphoma. Hospital course now c/b acute worsening of resp status/EKG abnormalities. Had been on IVF for hypercalcemia, now resolved. Increased thick yellow sputum in past few days according to review of notes. This am, rapid response for acute sob, hypoxia (80's). CXR showed worsened infiltrates. responded to nebs. Transferred to ICU. + fevers/sweats/diaphoresis, + chest congestion. patient states he is unable to cough. patient denies orthopnea, le edema, pnd, cp, palps, bleeding, no rashes, visual disturbances, headache, transient neurologic symptoms. Pmhx/Pshx: per hpi. Appendectomy, CABG, Cholecystectomy Social hx: Never smoked Family Disease History: Heart Disease: Father ros: per hpi Ambulatory Orders Aspirin [ASA -] 81 mg PO DAILY 05/07/13 Pravastatin Sodium [Pravachol -] 20 mg PO HS 05/10/13 Silodosin [Rapaflo] 8 mg PO DAILY 05/10/13 Metoprolol Succinate [Toprol Xl] 50 mg PO DAILY 09/28/15 Amlodipine Besylate [Norvasc -] 5 mg PO DAILY #30 tablet 09/13/16 Magnesium Oxide [Mag-Ox -] 400 mg PO BID 01/29/17 Prednisone [Deltasone] 10 mg PO HS 01/29/17 Quinapril HCl [Accupril] 40 mg PO DAILY 01/29/17 Ibrutinib [Imbruvica] 420 mg PO DAILY 01/30/17 Prednisone 5 mg PO DAILY 01/30/17 Current Medications Acetaminophen (Tylenol -) 650 mg PO Q6H PRN PRN Reason: FEVER OR PAIN Albuterol Sulfate (Ventolin 0.083% Nebulizer Soln -) 1 amp NEB QIDR [facility] Amlodipine Besylate (Norvasc -) 5 mg PO DAILY [facility] Aspirin (Asa -) 81 mg PO DAILY [facility] Atorvastatin Calcium (Lipitor -) 10 mg PO HS [facility] Cefepime HCl (Maxipime 2gm Ivpb (Pre-Docked)) 2 gm IVPB Q8H-IV [facility] PRN Reason: Protocol Last Admin: 02/02/17 12:24 Dose: 2 gm Azithromycin (Zithromax 500mg Ivpb (Pre-Docked)) 250 mls @ 250 mls/hr IVPB DAILY [facility] Vancomycin HCl (Vancomycin (Pre-Docked)) 250 mls @ 200 mls/hr IVPB BID@0030, 1230 [facility] Last Admin: 02/02/17 12:24 Dose: 200 mls/hr Magnesium Oxide (Mag-Ox -) 400 mg PO BID [facility] Methylprednisolone Sodium Succinate (Solu-Medrol -) 60 mg IVPB Q6H-IV [facility] Metoprolol Succinate (Toprol Xl -) 50 mg PO DAILY [facility] Non-Formulary Medication (Ibrutinib [Imbruvica]) 0 mg PO DAILY@0700 [facility] Pantoprazole Sodium (Protonix -) 40 mg PO DAILY [facility] Quinapril HCl (Accupril -) 40 mg PO DAILY [facility] Tamsulosin HCl (Flomax -) 0.4 mg PO DAILY@0830 [facility] Vital Signs - 24 hr 02/01/17 02/01/17 02/01/17 14:35 17:21 21:00 Temperature 100.4 F H 99.8 F H Pulse Rate 94 H 88 Respiratory 18 20 Rate Blood Pressure 152/73 144/76 O2 Sat by Pulse 94 L Oximetry (%) 02/01/17 02/02/17 02/02/17 22:00 07:03 08:00 Temperature 98.4 F 100.7 F H 102.1 F H Pulse Rate 69 118 H 113 H Respiratory 20 20 22 Rate Blood Pressure 133/75 153/84 146/54 O2 Sat by Pulse Oximetry (%) 02/02/17 02/02/17 02/02/17 11:04 11:05 11:20 Temperature 101.6 F H Pulse Rate 122 H Respiratory 28 H Rate Blood Pressure 154/70 O2 Sat by Pulse 96 96 Oximetry (%) 02/02/17 02/02/17 12:15 13:01 Temperature 99.0 F Pulse Rate 102 H 88 Respiratory 24 18 Rate Blood Pressure 145/76 123/68 O2 Sat by Pulse 94 L Oximetry (%) Intake & Output 01/31/17 02/01/17 02/02/17 07/10/17 07:59 07:59 07:59 07:59 Intake Total 3150 2320 3550 700 Output Total 2513 685 1064 Balance 1650 1645 550 700 Weight 163 lb nad, calm + diaphoresis, no jaundice diffuse rhonchi, nl effort rrr nl s1, s2 no mrg + bs soft nt nd ext without e/c/c no carotid bruits aaox3 + dp/pt CBC, BMP 02/01/17 06:00 02/02/17 06:05 Laboratory Tests 01/30/17 01/31/17 02/01/17 06:00 06:30 06:00 Band Neutrophils Metamyelocytes ESR 57 H ABG pH ABG pO2 at Pt Temp ABG HCO3 O2 Delivery Device Oxygen Flow Rate Calcium 10.3 H Magnesium Total Bilirubin AST ALT Alkaline Phosphatase Troponin I B-Natriuretic Peptide 385.53 Albumin 02/01/17 02/01/17 02/02/17 06:00 06:00 06:05 Band Neutrophils 12.0 H D Metamyelocytes 5 H D ESR ABG pH ABG pO2 at Pt Temp ABG HCO3 O2 Delivery Device Oxygen Flow Rate Calcium 9.2 9.0 Magnesium 1.5 L Total Bilirubin 0.5 D AST 30 ALT 17 Alkaline Phosphatase 46 Troponin I 0.04 B-Natriuretic Peptide Albumin 2.4 L 02/02/17 06:39 Band Neutrophils Metamyelocytes ESR ABG pH 7.47 H ABG pO2 at Pt Temp 76.8 ABG HCO3 26.5 H O2 Delivery Device Aerosol tx Oxygen Flow Rate 7l Calcium Magnesium Total Bilirubin AST ALT Alkaline Phosphatase Troponin I B-Natriuretic Peptide Albumin 01/29 EKG: sr, leftward axis. lvh with qrs widening. no ischemic changes EKG today: per report ekg done today. not in chart and not in muse. will look again tomorrow. tele: initially sinus tach --> SR 02/02 CXR: progressive airpspace changes/infiltrates over previously seen lung densities. (by my review, progressive 4 quadrant infiltrates although predominantly affecting the right lung. possible small pleural effusions) chest CT: asc aneurysm 4.2 cm. B upper lobe PNA with multiple B upper lobe nodules (ddx lymphomatous infiltrates, metastatic foci, inflammatory foci 2/2 pna), carin masses in retroperitoneum c/w recurrent lymphoma. 76 yo with h/o CAD s/p CABG, HTN, HL, mild asc ao dilation, Gastritis, GERD, Inflamatory Bowel Disease, Peptic Ulcer Disease, Duodenal adenoma, Pancreatic cyst, Renal Inusuff, BPH, Small lymphocytic Lymphoma, CLL, Polycythemia Vera p/ w fevers/sob and noted to have bilateral upper lobe pna/possible recurrence of lymphoma. Hospital course now c/b acute worsening of resp status/EKG abnormalities. PNA vs. lymphomatous infiltrates - ongoing eval/mgm't per pmd/pulm/critical care - paolorid response morning 02/02: acute resp distress/hypoxia 80's. O2 improved with nebs. worsening infiltrates on CXR. Transferred to ICU. IVF for hypercalcemia stopped (now resolved). Given dose of lasix 40 mg IV x 1 today with additional improvement in respiratory status. . - will get echo to assess underlying systolic/diastolic function. EKG changes/? sinus tach - as mentioned above, unable to locate ekg in chart or in muse. Will look again tomorrow. trop neg x 1. - lyte repletion CAD s/p CABG - ? 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 also on flomax for bph HL - con't statin mild asc ao dilation - 4.2 cm noted on chest CT. con't bb and bp control. routine outpatient monitoring. cct > 35 min
[2017-02-02] MEDS: methylPREDNISolone NA SUCC 40 MG/1 ML VIAL IVPB SCH ×2 (15:17→20:43)
[2017-02-02] MEDS: ALBUTEROL SO4 0.083% IH SOL 2.5 MG/3 ML VIAL.NEB. NEB SCH ×3 (17:23→23:05)
[2017-02-02] MEDS: ATORVASTATIN CA 10 MG TABLET (FP) PO SCH (22:18)
[2017-02-03] MEDS: VANCOMYCIN 1 GRAM (PRE-DOCKED) 250 ML IVPB SCH ×2 (01:30→13:50)
[2017-02-03] MEDS: CEFEPIME 2 GM/100 ML BAG PRE-DOCKED IVPB SCH ×3 (02:43→17:06)
[2017-02-03] MEDS: methylPREDNISolone NA SUCC 40 MG/1 ML VIAL IVPB SCH ×4 (02:49→21:08)
[2017-02-03 05:38] LABS: MCH 28.7 pg (25.7-33.7); MCHC 33.9 g/dl (32.0-35.9); MEAN CELL VOLUME 84.6 fl (80-96); MEAN PLT VOLUME 8.6 fl (7.5-11.1); PLATELET COUNT 174 K/MM3 (134-434); RDW 15.9 % (11.9-15.9); WHITE BLOOD COUNT 8.2 K/mm3 (4.0-10.0)
[2017-02-03] MEDS: ALBUTEROL SO4 0.083% IH SOL 2.5 MG/3 ML VIAL.NEB. NEB SCH ×3 (06:09→17:12)
[2017-02-03] MEDS ORDERED: IBRUTINIB PO SCH (07:00)
[2017-02-03 07:24] LABS: ALBUMIN 2.2 g/dl (3.4-5.0); ANION GAP 9 (8-16); CALCIUM 9.8 mg/dL (8.5-10.1); CO2 30 mmol/L (21-32); CREATININE 1.3 mg/dL (0.7-1.3); GLUCOSE,RANDOM 272 mg/dL (74-106); MAGNESIUM 1.9 mg/dL (1.8-2.4); PHOSPHOROUS 1.8 mg/dL (2.5-4.9); SGOT/AST 29 U/L (15-37); SGPT/ALT 18 U/L (12-78)
[2017-02-03 07:26] LABS: ALK PHOS 49 U/L (45-117); BILIRUBIN,TOTAL 0.4 mg/dL (0.2-1.0); TOT PROT 4.8 g/dl (6.4-8.2)
[2017-02-03] MEDS ORDERED: PT OWN MED DRAWER 7, Y5N ONE (08:52)
--- NOTE | 2017-02-03 09:16 | PN ---
Progress Note, Physician - Current Medication List Current Medications: Active Medications Acetaminophen (Tylenol -) 650 mg PO Q6H PRN PRN Reason: FEVER OR PAIN Albuterol Sulfate (Ventolin 0.083% Nebulizer Soln -) 1 amp NEB QIDR [facility] Last Admin: 02/03/17 06:09 Dose: 1 amp Amlodipine Besylate (Norvasc -) 5 mg PO DAILY [facility] Aspirin (Asa -) 81 mg PO DAILY [facility] Atorvastatin Calcium (Lipitor -) 10 mg PO HS [facility] Last Admin: 02/02/17 22:18 Dose: 10 mg Cefepime HCl (Maxipime 2gm Ivpb (Pre-Docked)) 2 gm IVPB Q8H-IV [facility] PRN Reason: Protocol Last Admin: 02/03/17 02:43 Dose: 2 gm Azithromycin (Zithromax 500mg Ivpb (Pre-Docked)) 250 mls @ 250 mls/hr IVPB DAILY [facility] Vancomycin HCl (Vancomycin (Pre-Docked)) 250 mls @ 200 mls/hr IVPB BID@0030, 1230 [facility] Last Admin: 02/03/17 01:30 Dose: 200 mls/hr Magnesium Oxide (Mag-Ox -) 400 mg PO BID [facility] Last Admin: 02/02/17 22:18 Dose: 400 mg Methylprednisolone Sodium Succinate (Solu-Medrol -) 60 mg IVPB Q6H-IV [facility] Last Admin: 02/03/17 02:49 Dose: 60 mg Metoprolol Succinate (Toprol Xl -) 50 mg PO DAILY [facility] Non-Formulary Medication (Ibrutinib [Imbruvica]) 0 mg PO DAILY@0700 [facility] Pantoprazole Sodium (Protonix -) 40 mg PO DAILY [facility] Quinapril HCl (Accupril -) 40 mg PO DAILY [facility] Tamsulosin HCl (Flomax -) 0.4 mg PO DAILY@0830 [facility] - Objective Vital Signs: Vital Signs Temperature 97.5 F L 02/03/17 06:00 Pulse Rate 78 02/03/17 08:00 Respiratory Rate 18 02/03/17 08:00 Blood Pressure 136/72 02/03/17 08:00 O2 Sat by Pulse Oximetry (%) 96 02/02/17 22:00 Labs: CBC, BMP 02/03/17 05:05 02/03/17 06:00 Assessment/Plan 7/5 EKG: sr, leftward axis. lvh with qrs widening. no ischemic changes 02/02 CXR: progressive airpspace changes/infiltrates over previously seen lung densities. (by my review, progressive 4 quadrant infiltrates although predominantly affecting the right lung. possible small pleural effusions) chest CT: asc aneurysm 4.2 cm. B upper lobe PNA with multiple B upper lobe nodules (ddx lymphomatous infiltrates, metastatic foci, inflammatory foci 2/2 pna), carin masses in retroperitoneum c/w recurrent lymphoma. 76 yo with h/o CAD s/p CABG, HTN, HL, mild asc ao dilation, Gastritis, GERD, Inflamatory Bowel Disease, Peptic Ulcer Disease, Duodenal adenoma, Pancreatic cyst, Renal Inusuff, BPH, Small lymphocytic Lymphoma, CLL, Polycythemia Vera p/ w fevers/sob and noted to have bilateral upper lobe pna/possible recurrence of lymphoma. Hospital course now c/b acute worsening of resp status/EKG abnormalities. PNA vs. lymphomatous infiltrates - rapid response morning 02/02: acute resp distress/hypoxia 80's. O2 improved with nebs. worsening infiltrates on CXR. Transferred to ICU. IVF for hypercalcemia stopped (now resolved). Given dose of lasix 40 mg IV x x on 02/02 with additional improvement in respiratory status. - being tx'd for PNA by ID and pulm/critical care - will get echo to assess underlying systolic/diastolic function. EKG changes/? sinus tach - as mentioned above, unable to locate ekg in chart or in muse. Will look again tomorrow. trop neg x 1. - lyte repletion CAD s/p CABG - ? 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 also on flomax for bph HL - con't statin mild asc ao dilation - 4.2 cm noted on chest CT. con't bb and bp control. routine outpatient monitoring.
[2017-02-03] MEDS: MAGNESIUM OXIDE 400 MG TABLET (FP) PO SCH ×2 (09:21→21:08)
[2017-02-03] MEDS: QUINAPRIL HCL 40 MG TABLET (FP) PO SCH (09:21)
[2017-02-03] MEDS: TAMSULOSIN HCL 0.4 MG CAP.ER.24H (FP) PO SCH (09:21)
[2017-02-03] MEDS: AZITHROMYCIN IVPB 250 ML IVPB SCH (09:26)
[2017-02-03] MEDS: ASPIRIN 81 MG CHEWABLE TABLETS PO SCH (09:26)
[2017-02-03] MEDS: PANTOPRAZOLE 40 MG TABLET (FP) PO SCH (09:26)
[2017-02-03] MEDS: amLODIPine BESYLATE 5 MG TABLET (FP) PO SCH (09:26)
[2017-02-03] MEDS: METOPROLOL SUCCINATE 50 MG TAB.SR.24H (FP) PO SCH (09:27)
[2017-02-03 09:33] LABS: PLATELET ESTIMATE ADEQUATE (NORMAL)
--- NOTE | 2017-02-03 09:37 | PN ---
Progress Note, Physician History of Present Illness: Awake, alert Mildly tachypneic on nasal cannula, but able to converse in complete sentences C/O tightness in throat area Denies chest pain/ dyspnea + dry cough No c/o fever/ chills Temps down- afebrile - Current Medication List Current Medications: Active Medications Acetaminophen (Tylenol -) 650 mg PO Q6H PRN PRN Reason: FEVER OR PAIN Albuterol Sulfate (Ventolin 0.083% Nebulizer Soln -) 1 amp NEB QIDR [facility] Last Admin: 02/03/17 06:09 Dose: 1 amp Amlodipine Besylate (Norvasc -) 5 mg PO DAILY [facility] Last Admin: 02/03/17 09:26 Dose: 5 mg Aspirin (Asa -) 81 mg PO DAILY [facility] Last Admin: 02/03/17 09:26 Dose: 81 mg Atorvastatin Calcium (Lipitor -) 10 mg PO HS [facility] Last Admin: 02/02/17 22:18 Dose: 10 mg Cefepime HCl (Maxipime 2gm Ivpb (Pre-Docked)) 2 gm IVPB Q8H-IV [facility] PRN Reason: Protocol Last Admin: 02/03/17 09:22 Dose: 2 gm Azithromycin (Zithromax 500mg Ivpb (Pre-Docked)) 250 mls @ 250 mls/hr IVPB DAILY [facility] Last Admin: 02/03/17 09:26 Dose: 250 mls/hr Vancomycin HCl (Vancomycin (Pre-Docked)) 250 mls @ 200 mls/hr IVPB BID@0030, 1230 [facility] Last Admin: 02/03/17 01:30 Dose: 200 mls/hr Magnesium Oxide (Mag-Ox -) 400 mg PO BID [facility] Last Admin: 02/03/17 09:21 Dose: 400 mg Methylprednisolone Sodium Succinate (Solu-Medrol -) 60 mg IVPB Q6H-IV [facility] Last Admin: 02/03/17 09:21 Dose: 60 mg Metoprolol Succinate (Toprol Xl -) 50 mg PO DAILY [facility] Last Admin: 02/03/17 09:27 Dose: 50 mg Non-Formulary Medication (Ibrutinib [Imbruvica]) 0 mg PO DAILY@0700 [facility] Pantoprazole Sodium (Protonix -) 40 mg PO DAILY [facility] Last Admin: 02/03/17 09:26 Dose: 40 mg Quinapril HCl (Accupril -) 40 mg PO DAILY [facility] Last Admin: 02/03/17 09:21 Dose: 40 mg Tamsulosin HCl (Flomax -) 0.4 mg PO DAILY@0830 [facility] Last Admin: 02/03/17 09:21 Dose: 0.4 mg - Objective Vital Signs: Vital Signs Temperature 97.6 F 02/03/17 09:23 Pulse Rate 76 02/03/17 09:23 Respiratory Rate 18 02/03/17 09:23 Blood Pressure 153/83 02/03/17 09:23 O2 Sat by Pulse Oximetry (%) 96 02/02/17 22:00 Constitutional: Yes: No Distress Eyes: Yes: Conjunctiva Clear Cardiovascular: Yes: Regular Rate and Rhythm, S1, S2 Respiratory: Yes: Other (+crepitations, lower lung sepulveda bilaterally) Gastrointestinal: Yes: Normal Bowel Sounds, Soft. No: Tenderness Extremities: No: Calf Tenderness Edema: No Labs: CBC, BMP 02/03/17 05:05 02/03/17 06:00 Assessment/Plan Bilateral pneumonia worsening dyspnea and infiltrates on CXR Recurrent fever CLL PCN allergy Continue zithromax /cefepime/ vancomycin May need bronchoscopy/ BAL ICU monitoring
[2017-02-03] MEDS ORDERED: CEFTRIAXONE 1 GM in DEXTROSE 5%-WATER - 50 ML IVPB SCH (10:00)
--- NOTE | 2017-02-03 10:21 | PN ---
Progress Note, Physician Chief Complaint: Post respiratory distress due to pneumonia- initially seen by Dr. Kathrine Staton now transferred to our service for further cardiac recommendation Awake and alert in ICU. History of Present Illness: Patient was seen and examined in ICU. Awake and alert. Chart was reviewed Dyspnea intermittently, nonproductive cough, no chest pain and no fever or chills - Current Medication List Current Medications: Active Medications Acetaminophen (Tylenol -) 650 mg PO Q6H PRN PRN Reason: FEVER OR PAIN Albuterol Sulfate (Ventolin 0.083% Nebulizer Soln -) 1 amp NEB QIDR [facility] Last Admin: 02/03/17 06:09 Dose: 1 amp Amlodipine Besylate (Norvasc -) 5 mg PO DAILY [facility] Last Admin: 02/03/17 09:26 Dose: 5 mg Aspirin (Asa -) 81 mg PO DAILY [facility] Last Admin: 02/03/17 09:26 Dose: 81 mg Atorvastatin Calcium (Lipitor -) 10 mg PO HS [facility] Last Admin: 02/02/17 22:18 Dose: 10 mg Cefepime HCl (Maxipime 2gm Ivpb (Pre-Docked)) 2 gm IVPB Q8H-IV [facility] PRN Reason: Protocol Last Admin: 02/03/17 09:22 Dose: 2 gm Azithromycin (Zithromax 500mg Ivpb (Pre-Docked)) 250 mls @ 250 mls/hr IVPB DAILY [facility] Last Admin: 02/03/17 09:26 Dose: 250 mls/hr Vancomycin HCl (Vancomycin (Pre-Docked)) 250 mls @ 200 mls/hr IVPB BID@0030, 1230 [facility] Last Admin: 02/03/17 01:30 Dose: 200 mls/hr Magnesium Oxide (Mag-Ox -) 400 mg PO BID [facility] Last Admin: 02/03/17 09:21 Dose: 400 mg Methylprednisolone Sodium Succinate (Solu-Medrol -) 60 mg IVPB Q6H-IV [facility] Last Admin: 02/03/17 09:21 Dose: 60 mg Metoprolol Succinate (Toprol Xl -) 50 mg PO DAILY [facility] Last Admin: 02/03/17 09:27 Dose: 50 mg Non-Formulary Medication (Ibrutinib [Imbruvica]) 0 mg PO DAILY@0700 [facility] Pantoprazole Sodium (Protonix -) 40 mg PO DAILY [facility] Last Admin: 02/03/17 09:26 Dose: 40 mg Quinapril HCl (Accupril -) 40 mg PO DAILY [facility] Last Admin: 02/03/17 09:21 Dose: 40 mg Tamsulosin HCl (Flomax -) 0.4 mg PO DAILY@0830 [facility] Last Admin: 02/03/17 09:21 Dose: 0.4 mg - Objective Vital Signs: Vital Signs Temperature 97.6 F 02/03/17 09:23 Pulse Rate 91 H 02/03/17 09:57 Respiratory Rate 18 02/03/17 09:23 Blood Pressure 153/83 02/03/17 09:23 O2 Sat by Pulse Oximetry (%) 94 L 02/03/17 09:57 Neck: Yes: Tenderness Cardiovascular: Yes: Regular Rate and Rhythm, S1, S2 Respiratory: Yes: Diminished, Rhonchi Gastrointestinal: Yes: Normal Bowel Sounds, Soft. No: Tenderness Edema: No Additional Findings/Remarks: Review of System HEENT: No headache, photophobia, blurring of vision CARD: No chest pain, palpitations (+) SOB RESP: (+) cough, sputum production, (-) hemoptysis ABD: No nausea, vomiting, diarrhea, abdominal pain, melena, hematemesis MUSC: No joint pains UROL: No urinary symptoms NEURO: No seizure, syncope Labs: CBC, BMP 02/03/17 05:05 02/03/17 06:00 - ....Imaging Chest X-ray: Report Reviewed Problem List - Problems (1) CKD (chronic kidney disease) Code(s): N18.9 - CHRONIC KIDNEY DISEASE, UNSPECIFIED Qualifiers: Chronic kidney disease stage: stage 2 (mild) Qualified Code(s): N18.2 - Chronic kidney disease, stage 2 (mild) (2) CLL (chronic lymphocytic leukemia) Code(s): C91.10 - CHRONIC LYMPHOCYTIC LEUK OF B-CELL TYPE NOT ACHIEVE REMIS (3) Pneumonia, community acquired Code(s): J18.9 - PNEUMONIA, UNSPECIFIED ORGANISM (4) CAD (coronary artery disease) Code(s): I25.10 - ATHSCL HEART DISEASE OF [place] CORONARY ARTERY W/O ANG PCTRS Qualifiers: Coronary Disease-Associated Artery/Lesion type: [place] artery [place] vs. transplanted heart: [place] heart Associated angina: without angina Qualified Code(s): I25.10 - Atherosclerotic heart disease of [place] coronary artery without angina pectoris (5) HLD (hyperlipidemia) Code(s): E78.5 - HYPERLIPIDEMIA, UNSPECIFIED Qualifiers: Hyperlipidemia type: pure hypercholesterolemia Qualified Code(s): E78.00 - Pure hypercholesterolemia, unspecified; E78.0 - Pure hypercholesterolemia (6) HTN (hypertension) Code(s): I10 - ESSENTIAL (PRIMARY) HYPERTENSION Qualifiers: Hypertension type: essential hypertension Qualified Code(s): I10 - Essential (primary) hypertension (7) Hypercalcemia Code(s): E83.52 - HYPERCALCEMIA (8) Ascending aortic aneurysm Code(s): I71.2 - THORACIC AORTIC ANEURYSM, WITHOUT RUPTURE (9) Hypokalemia Code(s): E87.6 - HYPOKALEMIA (10) Hx of CABG Code(s): Z95.1 - PRESENCE OF AORTOCORONARY BYPASS GRAFT Assessment/Plan 1. Respiratory distress due to community acquired pneumonia 2. Coronary artery disease status post CABG, angina pectoris 3. Hypertension 4. Hypercholesterolemia 5. Ascending aortic aneurysm 6. CLL 7. Hypokalemia and hypercalcemia 8. anemia 9. CKD PLAN: 1. Continue current pulmonary management with antibiotic coverage, steroids and nebulizer treatment 2. Continue Metoprolol ER, Amlodipine and Accupril 3. Continue Atorvastatin (previously was on Vytorin) 4. Continue ASA 5. Continue treatment for CLL 6. Ascending aortic aneurysm can be followed as outpatient 7. K supplement and monitor electrolytes Further plans are to follow Garret Estes MD
--- NOTE | 2017-02-03 10:43 | EKG ---
Test Reason : Blood Pressure : / mmHG Vent. Rate : 114 BPM Atrial Rate : 114 BPM P-R Int : 188 ms QRS Dur : 106 ms QT Int : 314 ms P-R-T Axes : 043 -24 085 degrees QTc Int : 432 ms SINUS TACHYCARDIA WITH OCCASIONAL PREMATURE VENTRICULAR COMPLEXES LEFT VENTRICULAR HYPERTROPHY WITH REPOLARIZATION ABNORMALITY ABNORMAL ECG WHEN COMPARED WITH ECG OF 29-JAN-2017 15:33, PREMATURE VENTRICULAR COMPLEXES ARE NOW PRESENT VENT. RATE HAS INCREASED BY 43 BPM T WAVE INVERSION NOW EVIDENT IN LATERAL LEADS Confirmed by CORNEL BRADEN MD [id number]) on 02/03/2017 10:43:11 AM Referred By: Confirmed By:CORNEL BRADEN MD
[2017-02-03] MEDS: POTASSIUM CHLORIDE TABS 20 MEQ TABLET.ER (FP) PO SCH ×2 (11:25→15:01)
[2017-02-03] MEDS: NAPH,MB-DB/K PH,MBDB POWDER PACKET PO SCH ×3 (11:26→21:09)
--- NOTE | 2017-02-03 11:26 | PN ---
Progress Note, Physician Chief Complaint: Mr Saucedo says he is feeling better. Says he was short of breath yesterday but that has now resolved. No cp or n/v. - Current Medication List Current Medications: Active Medications Acetaminophen (Tylenol -) 650 mg PO Q6H PRN PRN Reason: FEVER OR PAIN Albuterol Sulfate (Ventolin 0.083% Nebulizer Soln -) 1 amp NEB QIDR [facility] Last Admin: 02/03/17 11:09 Dose: 1 amp Amlodipine Besylate (Norvasc -) 5 mg PO DAILY [facility] Last Admin: 02/03/17 09:26 Dose: 5 mg Aspirin (Asa -) 81 mg PO DAILY [facility] Last Admin: 02/03/17 09:26 Dose: 81 mg Atorvastatin Calcium (Lipitor -) 10 mg PO HS [facility] Last Admin: 02/02/17 22:18 Dose: 10 mg Cefepime HCl (Maxipime 2gm Ivpb (Pre-Docked)) 2 gm IVPB Q8H-IV [facility] PRN Reason: Protocol Last Admin: 02/03/17 09:22 Dose: 2 gm Azithromycin (Zithromax 500mg Ivpb (Pre-Docked)) 250 mls @ 250 mls/hr IVPB DAILY [facility] Last Admin: 02/03/17 09:26 Dose: 250 mls/hr Vancomycin HCl (Vancomycin (Pre-Docked)) 250 mls @ 200 mls/hr IVPB BID@0030, 1230 [facility] Last Admin: 02/03/17 01:30 Dose: 200 mls/hr Magnesium Oxide (Mag-Ox -) 400 mg PO BID [facility] Last Admin: 02/03/17 09:21 Dose: 400 mg Methylprednisolone Sodium Succinate (Solu-Medrol -) 60 mg IVPB Q6H-IV [facility] Last Admin: 02/03/17 09:21 Dose: 60 mg Metoprolol Succinate (Toprol Xl -) 50 mg PO DAILY [facility] Last Admin: 02/03/17 09:27 Dose: 50 mg Non-Formulary Medication (Ibrutinib [Imbruvica]) 0 mg PO DAILY@0700 [facility] Pantoprazole Sodium (Protonix -) 40 mg PO DAILY [facility] Last Admin: 02/03/17 09:26 Dose: 40 mg Potassium Chloride (K-Dur -) 40 meq PO Q4H [facility] Stop: 02/03/17 15:01 Potassium Phos/Sodium Phos (Phos-Nak Packet -) 1 packet PO TID [facility] Stop: 02/03/17 22:01 Quinapril HCl (Accupril -) 40 mg PO DAILY [facility] Last Admin: 02/03/17 09:21 Dose: 40 mg Tamsulosin HCl (Flomax -) 0.4 mg PO DAILY@0830 [facility] Last Admin: 02/03/17 09:21 Dose: 0.4 mg - Objective Vital Signs: Vital Signs Temperature 97.6 F 02/03/17 09:23 Pulse Rate 98 H 02/03/17 11:00 Respiratory Rate 18 02/03/17 11:00 Blood Pressure 150/74 02/03/17 11:00 O2 Sat by Pulse Oximetry (%) 94 L 02/03/17 09:57 Constitutional: Yes: Well Nourished, No Distress, Calm Cardiovascular: Yes: Regular Rate and Rhythm. No: Gallop, Murmur, Rub Respiratory: Yes: Regular, CTA Bilaterally, On Nasal O2. No: Rales, Rhonchi, Wheezes Gastrointestinal: Yes: Normal Bowel Sounds, Soft. No: Distention, Tenderness Extremities: Yes: WNL Edema: No Labs: CBC, BMP 02/03/17 05:05 02/03/17 06:00 Problem List - Problems (1) Acute respiratory failure Code(s): J96.00 - ACUTE RESPIRATORY FAILURE, UNSP W HYPOXIA OR HYPERCAPNIA (2) Pneumonia, community acquired Code(s): J18.9 - PNEUMONIA, UNSPECIFIED ORGANISM (3) CKD (chronic kidney disease) Code(s): N18.9 - CHRONIC KIDNEY DISEASE, UNSPECIFIED Qualifiers: Chronic kidney disease stage: stage 2 (mild) Qualified Code(s): N18.2 - Chronic kidney disease, stage 2 (mild) (4) CLL (chronic lymphocytic leukemia) Code(s): C91.10 - CHRONIC LYMPHOCYTIC LEUK OF B-CELL TYPE NOT ACHIEVE REMIS (5) CAD (coronary artery disease) Code(s): I25.10 - ATHSCL HEART DISEASE OF [place] CORONARY ARTERY W/O ANG PCTRS Qualifiers: Coronary Disease-Associated Artery/Lesion type: [place] artery [place] vs. transplanted heart: [place] heart Associated angina: without angina Qualified Code(s): I25.10 - Atherosclerotic heart disease of [place] coronary artery without angina pectoris (6) HLD (hyperlipidemia) Code(s): E78.5 - HYPERLIPIDEMIA, UNSPECIFIED Qualifiers: Hyperlipidemia type: pure hypercholesterolemia Qualified Code(s): E78.00 - Pure hypercholesterolemia, unspecified; E78.0 - Pure hypercholesterolemia (7) HTN (hypertension) Code(s): I10 - ESSENTIAL (PRIMARY) HYPERTENSION Qualifiers: Hypertension type: essential hypertension Qualified Code(s): I10 - Essential (primary) hypertension (8) Hypercalcemia Code(s): E83.52 - HYPERCALCEMIA Assessment/Plan (1) Acute respiratory failure -secondary to fluid overload -cardiology following and ECHO pending -diuresing with lasix -improving -case d/w pulmonary, begin to taper steroids tomorrow (2) Pneumonia, community acquired Assessment/Plan: -afebrile for 24 hours -ID following and antibiotics expanded -continue cefepime, zithromax, and vancomycin Code(s): J18.9 - PNEUMONIA, UNSPECIFIED ORGANISM (3) CKD (chronic kidney disease) Assessment/Plan: -at baseline -monitor Code(s): N18.9 - CHRONIC KIDNEY DISEASE, UNSPECIFIED Qualifiers: Chronic kidney disease stage: stage 2 (mild) Qualified Code(s): N18.2 - Chronic kidney disease, stage 2 (mild) (4) CLL (chronic lymphocytic leukemia) Assessment/Plan: -holding home ibrutinib -oncology following Code(s): C91.10 - CHRONIC LYMPHOCYTIC LEUK OF B-CELL TYPE NOT ACHIEVE REMIS (5) CAD (coronary artery disease) Assessment/Plan: -quiescent, no chest pain -continue home regimen Code(s): I25.10 - ATHSCL HEART DISEASE OF [place] CORONARY ARTERY W/O ANG PCTRS (6) HLD (hyperlipidemia) Assessment/Plan: -continue statin Code(s): E78.5 - HYPERLIPIDEMIA, UNSPECIFIED (7) HTN (hypertension) Assessment/Plan: -controlled -continue norvasc, toprol xl, and quinapril Code(s): I10 - ESSENTIAL (PRIMARY) HYPERTENSION (8) Hypercalcemia -improved -off IVF -continue lasix -oncology and nephrology following 33 minutes spent in critical care time with this patient
--- NOTE | 2017-02-03 11:51 | PN ---
Physical Exam: SUBJECTIVE: Patient seen and examined. No events overnight. Patient states that he feels much better. OBJECTIVE: Vital Signs Temperature 97.8 F 02/03/17 14:00 Pulse Rate 94 H 02/03/17 14:00 Respiratory Rate 18 02/03/17 14:00 Blood Pressure 151/79 02/03/17 14:00 O2 Sat by Pulse Oximetry (%) 94 L 02/03/17 09:57 GENERAL: The patient is awake, alert, and fully oriented, in no acute distress. HEAD: Normal with no signs of trauma. EYES: pupils reactive to light, extraocular movements intact, sclera anicteric NECK: Trachea midline, full range of motion, supple. LUNGS: Breath sounds equal, inspiratory crackles and ronchi bilaterally at the bases HEART: Regular rate and rhythm, S1, S2 without murmur, rub or gallop. ABDOMEN: Soft, nontender, nondistended, normoactive bowel sounds, no guarding, no rebound. EXTREMITIES: 2+ pulses, warm, well-perfused, no edema. NEUROLOGICAL: Cranial nerves II through X grossly intact. Normal speech, gait not observed. PSYCH: Normal mood, normal affect. SKIN: Warm, dry, normal turgor, no rashes or lesions noted Laboratory Results - last 24 hr 02/03/17 02/03/17 05:05 06:00 WBC 8.2 RBC 3.89 L Hgb 11.2 L Hct 32.9 L MCV 84.6 MCH 28.7 MCHC 33.9 RDW 15.9 Plt Count 174 MPV 8.6 Neutrophils % 90.0 H Lymphocytes % 4.0 L D Monocytes % 2.0 L D Band Neutrophils 3.0 D Platelet Estimate Adequate Sodium 140 Potassium 3.1 L Chloride 101 Carbon Dioxide 30 Anion Gap 9 BUN 26 H D Creatinine 1.3 Creat Clearance w eGFR 53.39 Random Glucose 272 H D Calcium 9.8 Phosphorus 1.8 L D Magnesium 1.9 D Total Bilirubin 0.4 AST 29 ALT 18 Alkaline Phosphatase 49 Total Protein 4.8 L Albumin 2.2 L Active Medications Generic Name Dose Route Start Last Admin Trade Name Freq PRN Reason Stop Dose Admin Acetaminophen 650 mg 02/02/17 11:15 Tylenol - PO Q6H PRN FEVER OR PAIN Albuterol Sulfate 1 amp 02/02/17 12:00 02/03/17 11:09 Ventolin 0.083% Nebulizer Soln - NEB 1 amp QIDR [facility] Administration Amlodipine Besylate 5 mg 02/03/17 10:00 02/03/17 09:26 Norvasc - PO 5 mg DAILY [facility] Administration Aspirin 81 mg 02/03/17 10:00 02/03/17 09:26 Asa - PO 81 mg DAILY [facility] Administration Atorvastatin Calcium 10 mg 02/02/17 22:00 02/02/17 22:18 Lipitor - PO 10 mg HS [facility] Administration Cefepime HCl 2 gm 02/02/17 12:30 02/03/17 09:22 Maxipime 2gm Ivpb (Pre-Docked) IVPB 2 gm Q8H-IV [facility] Administration Protocol Azithromycin 250 mls @ 250 mls/hr 02/03/17 10:00 02/03/17 09:26 Zithromax 500mg Ivpb (Pre-Docked) IVPB 250 mls/hr DAILY [facility] Administration Vancomycin HCl 250 mls @ 200 mls/hr 02/02/17 12:30 02/03/17 01:30 Vancomycin (Pre-Docked) IVPB 200 mls/hr BID@0030,1230 [facility] Administration Magnesium Oxide 400 mg 02/02/17 22:00 02/03/17 09:21 Mag-Ox - PO 400 mg BID [facility] Administration Methylprednisolone Sodium Succinate 60 mg 02/02/17 15:00 02/03/17 09:21 Solu-Medrol - IVPB 60 mg Q6H-IV [facility] Administration Metoprolol Succinate 50 mg 02/03/17 10:00 02/03/17 09:27 Toprol Xl - PO 50 mg DAILY [facility] Administration Non-Formulary Medication 0 mg 02/03/17 07:00 Ibrutinib [Imbruvica] PO DAILY@0700 [facility] Pantoprazole Sodium 40 mg 02/03/17 10:00 02/03/17 09:26 Protonix - PO 40 mg DAILY [facility] Administration Potassium Chloride 40 meq 02/03/17 11:00 02/03/17 11:25 K-Dur - PO 02/03/17 15:01 40 meq Q4H [facility] Administration Potassium Phos/Sodium Phos 1 packet 02/03/17 11:15 02/03/17 11:26 Phos-Nak Packet - PO 02/03/17 22:01 1 packet TID [facility] Administration Quinapril HCl 40 mg 02/03/17 10:00 02/03/17 09:21 Accupril - PO 40 mg DAILY [facility] Administration Tamsulosin HCl 0.4 mg 02/03/17 08:30 02/03/17 09:21 Flomax - PO 0.4 mg DAILY@0830 [facility] Administration ASSESSMENT/PLAN: 76 y.o. m with PMH CLL admitted for the treatment of PNA. He was transferred to the ICU after desaturating on the floors. Neuro -patient is AAOx3 Pulmonary -community acquired Pneumonia -breathing and SpO2 improved -CXR from today shows improvement compared to 02/02 -c/w cefipime 2g IVPB q8h/ vancomycin 250ml at 200ml/hr / zithromax 500 mg -will obtain sputum culture today Cardiac -PMH CAD s/p CABG -for echo today to assess cardiac function FEN -no fluids indicated at this time -K of 3.1; will replete with PO KCL 40 meq q4h -phosphorus 1.8; will replete with K-Phos packets TID -sodium controlled diet Prophylaxis -switch SCDs to enoxaparin 40mg SQ daily Dispo -monitor in the ICU Problem List - Problems (1) CLL (chronic lymphocytic leukemia) Code(s): C91.10 - CHRONIC LYMPHOCYTIC LEUK OF B-CELL TYPE NOT ACHIEVE REMIS (2) Pneumonia, community acquired Code(s): J18.9 - PNEUMONIA, UNSPECIFIED ORGANISM (3) CAD (coronary artery disease) Code(s): I25.10 - ATHSCL HEART DISEASE OF [place] CORONARY ARTERY W/O ANG PCTRS Qualifiers: Coronary Disease-Associated Artery/Lesion type: [place] artery [place] vs. transplanted heart: [place] heart Associated angina: without angina Qualified Code(s): I25.10 - Atherosclerotic heart disease of [place] coronary artery without angina pectoris Visit type - Emergency Visit Emergency Visit: Yes ED Registration Date: 01/29/17 Care time: The patient presented to the Emergency Department on the above date and was hospitalized for further evaluation of their emergent condition. - New Patient This patient is new to me today: Yes Date on this admission: 02/03/17 - Critical Care Critical Care patient: Yes Total Critical Care Time (in minutes): 40 Critical Care Statement: The care of this patient involved high complexity decision making to prevent further life threatening deterioration of the patient 's condition and/or to evalute & treat vital organ system(s) failure or risk of failure.
--- NOTE | 2017-02-03 12:05 | PN ---
Teaching Attending Note Name of Resident: Kevon Sky ATTENDING PHYSICIAN STATEMENT I saw and evaluated the patient. I reviewed the resident's note and discussed the case with the resident. I agree with the resident's findings and plan as documented. SUBJECTIVE: Pt seen and examined in the ICU. Breathing much improved today. No further fevers after antibiotic coverage broadened. Diuresed well with lasix yesterday. OBJECTIVE: Last Vital Signs Temp Pulse Resp BP Pulse Ox 97.6 F 98 H 18 150/74 94 L 02/03/17 09:23 02/03/17 11:00 02/03/17 11:00 02/03/17 11:00 02/03/17 09:57 Intake & Output 01/31/17 02/01/17 02/02/17 02/03/17 23:59 23:59 23:59 23:59 Intake Total 2320 3950 3470 980 Output Total 1675 1600 3450 1550 Balance 645 2350 20 -570 Weight 163 lb 159 lb 2.78 oz Gen: less tachypneic Heart: RRR Lung: scattered rhonchi Abd: soft, nontender Ext: no edema CBC, BMP 02/03/17 05:05 02/03/17 06:00 Active Medications Acetaminophen (Tylenol -) 650 mg PO Q6H PRN PRN Reason: FEVER OR PAIN Albuterol Sulfate (Ventolin 0.083% Nebulizer Soln -) 1 amp NEB QIDR [facility] Last Admin: 02/03/17 11:09 Dose: 1 amp Amlodipine Besylate (Norvasc -) 5 mg PO DAILY [facility] Last Admin: 02/03/17 09:26 Dose: 5 mg Aspirin (Asa -) 81 mg PO DAILY [facility] Last Admin: 02/03/17 09:26 Dose: 81 mg Atorvastatin Calcium (Lipitor -) 10 mg PO HS [facility] Last Admin: 02/02/17 22:18 Dose: 10 mg Cefepime HCl (Maxipime 2gm Ivpb (Pre-Docked)) 2 gm IVPB Q8H-IV [facility] PRN Reason: Protocol Last Admin: 02/03/17 09:22 Dose: 2 gm Azithromycin (Zithromax 500mg Ivpb (Pre-Docked)) 250 mls @ 250 mls/hr IVPB DAILY [facility] Last Admin: 02/03/17 09:26 Dose: 250 mls/hr Vancomycin HCl (Vancomycin (Pre-Docked)) 250 mls @ 200 mls/hr IVPB BID@0030, 1230 [facility] Last Admin: 02/03/17 01:30 Dose: 200 mls/hr Magnesium Oxide (Mag-Ox -) 400 mg PO BID [facility] Last Admin: 02/03/17 09:21 Dose: 400 mg Methylprednisolone Sodium Succinate (Solu-Medrol -) 60 mg IVPB Q6H-IV [facility] Last Admin: 02/03/17 09:21 Dose: 60 mg Metoprolol Succinate (Toprol Xl -) 50 mg PO DAILY [facility] Last Admin: 02/03/17 09:27 Dose: 50 mg Non-Formulary Medication (Ibrutinib [Imbruvica]) 0 mg PO DAILY@0700 [facility] Pantoprazole Sodium (Protonix -) 40 mg PO DAILY [facility] Last Admin: 02/03/17 09:26 Dose: 40 mg Potassium Chloride (K-Dur -) 40 meq PO Q4H [facility] Stop: 02/03/17 15:01 Last Admin: 02/03/17 11:25 Dose: 40 meq Potassium Phos/Sodium Phos (Phos-Nak Packet -) 1 packet PO TID [facility] Stop: 02/03/17 22:01 Last Admin: 02/03/17 11:26 Dose: 1 packet Quinapril HCl (Accupril -) 40 mg PO DAILY [facility] Last Admin: 02/03/17 09:21 Dose: 40 mg Tamsulosin HCl (Flomax -) 0.4 mg PO DAILY@0830 [facility] Last Admin: 02/03/17 09:21 Dose: 0.4 mg ASSESSMENT AND PLAN: Acute Hypoxic Respiratory Failure improving Pneumonia h/o CLL CAD s/p CABG HTN Hypercholesterolemia CKD Lung Nodule - continue medrol, can taper in AM - lasix as needed - antibiotics per ID - f/u cultures, send sputum - DVT prophylaxis - will need outpt f/u of chest imaging to ensure resolution of infiltrate and lung nodule Problem List - Problems (1) Pneumonia, community acquired Code(s): J18.9 - PNEUMONIA, UNSPECIFIED ORGANISM (2) CAD (coronary artery disease) Code(s): I25.10 - ATHSCL HEART DISEASE OF [place] CORONARY ARTERY W/O ANG PCTRS Qualifiers: Coronary Disease-Associated Artery/Lesion type: [place] artery [place] vs. transplanted heart: [place] heart Associated angina: without angina Qualified Code(s): I25.10 - Atherosclerotic heart disease of [place] coronary artery without angina pectoris (3) HLD (hyperlipidemia) Code(s): E78.5 - HYPERLIPIDEMIA, UNSPECIFIED Qualifiers: Hyperlipidemia type: pure hypercholesterolemia Qualified Code(s): E78.00 - Pure hypercholesterolemia, unspecified; E78.0 - Pure hypercholesterolemia (4) HTN (hypertension) Code(s): I10 - ESSENTIAL (PRIMARY) HYPERTENSION Qualifiers: Hypertension type: essential hypertension Qualified Code(s): I10 - Essential (primary) hypertension (5) CLL (chronic lymphocytic leukemia) Code(s): C91.10 - CHRONIC LYMPHOCYTIC LEUK OF B-CELL TYPE NOT ACHIEVE REMIS
[2017-02-03] MEDS ORDERED: ENOXAPARIN NA (PORCINE) 40 MG/0.4 ML DISP.SYRIN SQ SCH (12:15)
--- NOTE | 2017-02-03 13:49 | PN ---
Progress Note, Physician History of Present Illness: Pt seen and examined at bedside. He is awake and alert. He feels that his breathing is improved today. - Current Medication List Current Medications: Active Medications Acetaminophen (Tylenol -) 650 mg PO Q6H PRN PRN Reason: FEVER OR PAIN Albuterol Sulfate (Ventolin 0.083% Nebulizer Soln -) 1 amp NEB QIDR [facility] Last Admin: 02/03/17 11:09 Dose: 1 amp Amlodipine Besylate (Norvasc -) 5 mg PO DAILY [facility] Last Admin: 02/03/17 09:26 Dose: 5 mg Aspirin (Asa -) 81 mg PO DAILY [facility] Last Admin: 02/03/17 09:26 Dose: 81 mg Atorvastatin Calcium (Lipitor -) 10 mg PO HS [facility] Last Admin: 02/02/17 22:18 Dose: 10 mg Cefepime HCl (Maxipime 2gm Ivpb (Pre-Docked)) 2 gm IVPB Q8H-IV [facility] PRN Reason: Protocol Last Admin: 02/03/17 09:22 Dose: 2 gm Enoxaparin Sodium (Lovenox -) 40 mg SQ DAILY [facility] Azithromycin (Zithromax 500mg Ivpb (Pre-Docked)) 250 mls @ 250 mls/hr IVPB DAILY [facility] Last Admin: 02/03/17 09:26 Dose: 250 mls/hr Vancomycin HCl (Vancomycin (Pre-Docked)) 250 mls @ 200 mls/hr IVPB BID@0030, 1230 [facility] Last Admin: 02/03/17 01:30 Dose: 200 mls/hr Magnesium Oxide (Mag-Ox -) 400 mg PO BID [facility] Last Admin: 02/03/17 09:21 Dose: 400 mg Methylprednisolone Sodium Succinate (Solu-Medrol -) 60 mg IVPB Q6H-IV [facility] Last Admin: 02/03/17 09:21 Dose: 60 mg Metoprolol Succinate (Toprol Xl -) 50 mg PO DAILY [facility] Last Admin: 02/03/17 09:27 Dose: 50 mg Non-Formulary Medication (Ibrutinib [Imbruvica]) 0 mg PO DAILY@0700 [facility] Pantoprazole Sodium (Protonix -) 40 mg PO DAILY [facility] Last Admin: 02/03/17 09:26 Dose: 40 mg Potassium Chloride (K-Dur -) 40 meq PO Q4H [facility] Stop: 02/03/17 15:01 Last Admin: 02/03/17 11:25 Dose: 40 meq Potassium Phos/Sodium Phos (Phos-Nak Packet -) 1 packet PO TID [facility] Stop: 02/03/17 22:01 Last Admin: 02/03/17 11:26 Dose: 1 packet Quinapril HCl (Accupril -) 40 mg PO DAILY [facility] Last Admin: 02/03/17 09:21 Dose: 40 mg Tamsulosin HCl (Flomax -) 0.4 mg PO DAILY@0830 [facility] Last Admin: 02/03/17 09:21 Dose: 0.4 mg - Objective Vital Signs: Vital Signs Temperature 97.6 F 02/03/17 10:00 Pulse Rate 96 H 02/03/17 12:00 Respiratory Rate 18 02/03/17 12:00 Blood Pressure 125/55 02/03/17 12:00 O2 Sat by Pulse Oximetry (%) 94 L 02/03/17 09:57 Constitutional: Yes: Calm Eyes: Yes: Conjunctiva Clear HENT: Yes: Atraumatic Neck: Yes: Supple Cardiovascular: Yes: S1, S2 Respiratory: Yes: On Nasal O2 Gastrointestinal: Yes: Soft Musculoskeletal: Yes: WNL Edema: No Neurological: Yes: Oriented Psychiatric: Yes: Oriented Labs: CBC, BMP 02/03/17 05:05 02/03/17 06:00 Problem List - Problems (1) CLL (chronic lymphocytic leukemia) Code(s): C91.10 - CHRONIC LYMPHOCYTIC LEUK OF B-CELL TYPE NOT ACHIEVE REMIS (2) Hypercalcemia Code(s): E83.52 - HYPERCALCEMIA Assessment/Plan Current Medications Generic Name Dose Route Start Last Admin Trade Name Freq PRN Reason Stop Dose Admin Acetaminophen 650 mg 02/02/17 11:15 Tylenol - PO Q6H PRN FEVER OR PAIN Albuterol Sulfate 1 amp 02/02/17 12:00 02/03/17 11:09 Ventolin 0.083% Nebulizer Soln - NEB 1 amp QIDR [facility] Administration Amlodipine Besylate 5 mg 02/03/17 10:00 02/03/17 09:26 Norvasc - PO 5 mg DAILY [facility] Administration Aspirin 81 mg 02/03/17 10:00 02/03/17 09:26 Asa - PO 81 mg DAILY [facility] Administration Atorvastatin Calcium 10 mg 02/02/17 22:00 02/02/17 22:18 Lipitor - PO 10 mg HS [facility] Administration Cefepime HCl 2 gm 02/02/17 12:30 02/03/17 09:22 Maxipime 2gm Ivpb (Pre-Docked) IVPB 2 gm Q8H-IV [facility] Administration Protocol Enoxaparin Sodium 40 mg 02/03/17 12:15 Lovenox - SQ DAILY [facility] Azithromycin 250 mls @ 250 mls/hr 02/03/17 10:00 02/03/17 09:26 Zithromax 500mg Ivpb (Pre-Docked) IVPB 250 mls/hr DAILY [facility] Administration Vancomycin HCl 250 mls @ 200 mls/hr 02/02/17 12:30 02/03/17 01:30 Vancomycin (Pre-Docked) IVPB 200 mls/hr BID@0030,1230 [facility] Administration Magnesium Oxide 400 mg 02/02/17 22:00 02/03/17 09:21 Mag-Ox - PO 400 mg BID [facility] Administration Methylprednisolone Sodium Succinate 60 mg 02/02/17 15:00 02/03/17 09:21 Solu-Medrol - IVPB 60 mg Q6H-IV [facility] Administration Metoprolol Succinate 50 mg 02/03/17 10:00 02/03/17 09:27 Toprol Xl - PO 50 mg DAILY [facility] Administration Non-Formulary Medication 0 mg 02/03/17 07:00 Ibrutinib [Imbruvica] PO DAILY@0700 [facility] Pantoprazole Sodium 40 mg 02/03/17 10:00 02/03/17 09:26 Protonix - PO 40 mg DAILY [facility] Administration Potassium Chloride 40 meq 02/03/17 11:00 02/03/17 11:25 K-Dur - PO 02/03/17 15:01 40 meq Q4H [facility] Administration Potassium Phos/Sodium Phos 1 packet 02/03/17 11:15 02/03/17 11:26 Phos-Nak Packet - PO 02/03/17 22:01 1 packet TID [facility] Administration Quinapril HCl 40 mg 02/03/17 10:00 02/03/17 09:21 Accupril - PO 40 mg DAILY [facility] Administration Tamsulosin HCl 0.4 mg 02/03/17 08:30 02/03/17 09:21 Flomax - PO 0.4 mg DAILY@0830 [facility] Administration Impression 1. Hypercalcemia 2. CAD 3. HTN 4. Chol 5. hx leukemia 6. non hodgkins lymphoma 7. CKD 8. hypokalemia Plan - replace potassium - monitor calcium - can hold off fluids for now - oncology follow up - will follow pt Dr Hopper
[2017-02-03] MEDS: ENOXAPARIN NA (PORCINE) 40 MG/0.4 ML DISP.SYRIN SQ SCH (16:49)
[2017-02-03] MEDS: ATORVASTATIN CA 10 MG TABLET (FP) PO SCH (21:08)
[2017-02-04] MEDS: VANCOMYCIN 1 GRAM (PRE-DOCKED) 250 ML IVPB SCH (00:21)
[2017-02-04] MEDS: CEFEPIME 2 GM/100 ML BAG PRE-DOCKED IVPB SCH ×3 (01:05→17:14)
[2017-02-04] MEDS: methylPREDNISolone NA SUCC 40 MG/1 ML VIAL IVPB SCH ×3 (03:44→17:14)
[2017-02-04 05:46] LABS: MCH 28.2 pg (25.7-33.7); MCHC 33.2 g/dl (32.0-35.9); MEAN CELL VOLUME 84.7 fl (80-96); PLATELET COUNT 191 K/MM3 (134-434); RDW 16.2 % (11.9-15.9)
[2017-02-04] MEDS: ALBUTEROL SO4 0.083% IH SOL 2.5 MG/3 ML VIAL.NEB. NEB SCH ×5 (06:00→23:23)
[2017-02-04 06:17] LABS: ALBUMIN 2.1 g/dl (3.4-5.0); ALK PHOS 45 U/L (45-117); ANION GAP 10 (8-16); BILIRUBIN,TOTAL 0.4 mg/dL (0.2-1.0); CALCIUM 9.6 mg/dL (8.5-10.1); CO2 30 mmol/L (21-32); CREATININE 1.3 mg/dL (0.7-1.3); GLUCOSE,RANDOM 257 mg/dL (74-106); SGOT/AST 35 U/L (15-37); SGPT/ALT 35 U/L (12-78); TOT PROT 4.8 g/dl (6.4-8.2)
[2017-02-04 07:57] LABS: PHOSPHOROUS 2.6 mg/dL (2.5-4.9)
[2017-02-04] MEDS ORDERED: PT OWN MED DRAWER 7, Y5N ONE (08:35)
[2017-02-04] MEDS: QUINAPRIL HCL 40 MG TABLET (FP) PO SCH (09:39)
[2017-02-04] MEDS: AZITHROMYCIN IVPB 250 ML IVPB SCH (09:39)
[2017-02-04] MEDS: ENOXAPARIN NA (PORCINE) 40 MG/0.4 ML DISP.SYRIN SQ SCH (09:39)
[2017-02-04] MEDS: amLODIPine BESYLATE 5 MG TABLET (FP) PO SCH (09:40)
[2017-02-04] MEDS: ASPIRIN 81 MG CHEWABLE TABLETS PO SCH (09:40)
[2017-02-04] MEDS: METOPROLOL SUCCINATE 50 MG TAB.SR.24H (FP) PO SCH (09:40)
[2017-02-04] MEDS: TAMSULOSIN HCL 0.4 MG CAP.ER.24H (FP) PO SCH (09:40)
[2017-02-04] MEDS: MAGNESIUM OXIDE 400 MG TABLET (FP) PO SCH ×2 (09:41→22:35)
[2017-02-04] MEDS: PANTOPRAZOLE 40 MG TABLET (FP) PO SCH (09:41)
--- NOTE | 2017-02-04 11:21 | PN ---
Progress Note, Physician Chief Complaint: Mr Saucedo says he is feeling better. Says his breathing is much improved. No cp, sob, n/v. - Current Medication List Current Medications: Active Medications Acetaminophen (Tylenol -) 650 mg PO Q6H PRN PRN Reason: FEVER OR PAIN Albuterol Sulfate (Ventolin 0.083% Nebulizer Soln -) 1 amp NEB QIDR [facility] Last Admin: 02/04/17 06:00 Dose: 1 amp Amlodipine Besylate (Norvasc -) 5 mg PO DAILY [facility] Last Admin: 02/04/17 09:40 Dose: 5 mg Aspirin (Asa -) 81 mg PO DAILY [facility] Last Admin: 02/04/17 09:40 Dose: 81 mg Atorvastatin Calcium (Lipitor -) 10 mg PO HS [facility] Last Admin: 02/03/17 21:08 Dose: 10 mg Cefepime HCl (Maxipime 2gm Ivpb (Pre-Docked)) 2 gm IVPB Q8H-IV [facility] PRN Reason: Protocol Last Admin: 02/04/17 09:41 Dose: 2 gm Enoxaparin Sodium (Lovenox -) 40 mg SQ DAILY [facility] Last Admin: 02/04/17 09:39 Dose: 40 mg Azithromycin (Zithromax 500mg Ivpb (Pre-Docked)) 250 mls @ 250 mls/hr IVPB DAILY [facility] Last Admin: 02/04/17 09:39 Dose: 250 mls/hr Vancomycin HCl (Vancomycin (Pre-Docked)) 250 mls @ 200 mls/hr IVPB BID@0030, 1230 [facility] Last Admin: 02/04/17 00:21 Dose: 200 mls/hr Magnesium Oxide (Mag-Ox -) 400 mg PO BID [facility] Last Admin: 02/04/17 09:41 Dose: 400 mg Methylprednisolone Sodium Succinate (Solu-Medrol -) 60 mg IVPB Q6H-IV [facility] Last Admin: 02/04/17 09:40 Dose: 60 mg Metoprolol Succinate (Toprol Xl -) 50 mg PO DAILY [facility] Last Admin: 02/04/17 09:40 Dose: 50 mg Non-Formulary Medication (Ibrutinib [Imbruvica]) 0 mg PO DAILY@0700 [facility] Pantoprazole Sodium (Protonix -) 40 mg PO DAILY [facility] Last Admin: 02/04/17 09:41 Dose: 40 mg Quinapril HCl (Accupril -) 40 mg PO DAILY [facility] Last Admin: 02/04/17 09:39 Dose: 40 mg Tamsulosin HCl (Flomax -) 0.4 mg PO DAILY@0830 [facility] Last Admin: 02/04/17 09:40 Dose: 0.4 mg - Objective Vital Signs: Vital Signs Temperature 98.2 F 02/04/17 10:00 Pulse Rate 78 02/04/17 10:00 Respiratory Rate 20 02/04/17 10:00 Blood Pressure 127/72 02/04/17 10:00 O2 Sat by Pulse Oximetry (%) 95 02/04/17 09:00 Constitutional: Yes: Well Nourished, No Distress, Calm Cardiovascular: Yes: Regular Rate and Rhythm. No: Gallop, Murmur, Rub Respiratory: Yes: Regular, CTA Bilaterally, On Nasal O2. No: Rales, Rhonchi, Wheezes Gastrointestinal: Yes: Normal Bowel Sounds, Soft. No: Distention, Tenderness Extremities: Yes: WNL Edema: No Labs: CBC, BMP 02/04/17 05:10 02/04/17 05:10 Problem List - Problems (1) Acute respiratory failure Code(s): J96.00 - ACUTE RESPIRATORY FAILURE, UNSP W HYPOXIA OR HYPERCAPNIA (2) Pneumonia, community acquired Code(s): J18.9 - PNEUMONIA, UNSPECIFIED ORGANISM (3) CKD (chronic kidney disease) Code(s): N18.9 - CHRONIC KIDNEY DISEASE, UNSPECIFIED Qualifiers: Chronic kidney disease stage: stage 2 (mild) Qualified Code(s): N18.2 - Chronic kidney disease, stage 2 (mild) (4) CLL (chronic lymphocytic leukemia) Code(s): C91.10 - CHRONIC LYMPHOCYTIC LEUK OF B-CELL TYPE NOT ACHIEVE REMIS (5) CAD (coronary artery disease) Code(s): I25.10 - ATHSCL HEART DISEASE OF [place] CORONARY ARTERY W/O ANG PCTRS Qualifiers: Coronary Disease-Associated Artery/Lesion type: [place] artery [place] vs. transplanted heart: [place] heart Associated angina: without angina Qualified Code(s): I25.10 - Atherosclerotic heart disease of [place] coronary artery without angina pectoris (6) HLD (hyperlipidemia) Code(s): E78.5 - HYPERLIPIDEMIA, UNSPECIFIED Qualifiers: Hyperlipidemia type: pure hypercholesterolemia Qualified Code(s): E78.00 - Pure hypercholesterolemia, unspecified; E78.0 - Pure hypercholesterolemia (7) HTN (hypertension) Code(s): I10 - ESSENTIAL (PRIMARY) HYPERTENSION Qualifiers: Hypertension type: essential hypertension Qualified Code(s): I10 - Essential (primary) hypertension (8) Hypercalcemia Code(s): E83.52 - HYPERCALCEMIA Assessment/Plan (1) Acute respiratory failure -secondary to fluid overload -cardiology following and ECHO reviewed -chest x-ray improved -stop lasix -continue oxygen (2) Pneumonia, community acquired Assessment/Plan: -afebrile for 48 hours -ID following -continue cefepime, zithromax, and vancomycin Code(s): J18.9 - PNEUMONIA, UNSPECIFIED ORGANISM (3) CKD (chronic kidney disease) Assessment/Plan: -at baseline -monitor Code(s): N18.9 - CHRONIC KIDNEY DISEASE, UNSPECIFIED Qualifiers: Chronic kidney disease stage: stage 2 (mild) Qualified Code(s): N18.2 - Chronic kidney disease, stage 2 (mild) (4) CLL (chronic lymphocytic leukemia) Assessment/Plan: -holding home ibrutinib -oncology following Code(s): C91.10 - CHRONIC LYMPHOCYTIC LEUK OF B-CELL TYPE NOT ACHIEVE REMIS (5) CAD (coronary artery disease) Assessment/Plan: -quiescent, no chest pain -continue home regimen Code(s): I25.10 - ATHSCL HEART DISEASE OF [place] CORONARY ARTERY W/O ANG PCTRS (6) HLD (hyperlipidemia) Assessment/Plan: -continue statin Code(s): E78.5 - HYPERLIPIDEMIA, UNSPECIFIED (7) HTN (hypertension) Assessment/Plan: -controlled -continue norvasc, toprol xl, and quinapril Code(s): I10 - ESSENTIAL (PRIMARY) HYPERTENSION (8) Hypercalcemia -improved and stable -off IVF and lasix -monitor
--- NOTE | 2017-02-04 11:34 | PN ---
Teaching Attending Note Name of Resident: Kevon Sky ATTENDING PHYSICIAN STATEMENT I saw and evaluated the patient. I reviewed the resident's note and discussed the case with the resident. I agree with the resident's findings and plan as documented. SUBJECTIVE: Pt seen and examined in the ICU. Breathing much improved. +nonproductive cough. No fevers or chills. OBJECTIVE: Last Vital Signs Temp Pulse Resp BP Pulse Ox 98.2 F 78 20 127/72 95 02/04/17 10:00 02/04/17 10:00 02/04/17 10:00 02/04/17 10:00 02/04/17 09:00 Intake & Output 02/01/17 02/02/17 02/03/17 02/04/17 23:59 23:59 23:59 23:59 Intake Total 3950 3470 2660 400 Output Total 1600 3450 2550 950 Balance 2350 20 110 -550 Weight 163 lb 159 lb 2.78 oz 161 lb 13.109 oz Gen: less tachypneic Heart: RRR Lung: decreased breath sounds at the bases Abd: soft, nontender Ext: no edema CBC, BMP 02/04/17 05:10 02/04/17 05:10 Active Medications Acetaminophen (Tylenol -) 650 mg PO Q6H PRN PRN Reason: FEVER OR PAIN Albuterol Sulfate (Ventolin 0.083% Nebulizer Soln -) 1 amp NEB QIDR [facility] Last Admin: 02/04/17 06:00 Dose: 1 amp Amlodipine Besylate (Norvasc -) 5 mg PO DAILY [facility] Last Admin: 02/04/17 09:40 Dose: 5 mg Aspirin (Asa -) 81 mg PO DAILY [facility] Last Admin: 02/04/17 09:40 Dose: 81 mg Atorvastatin Calcium (Lipitor -) 10 mg PO HS [facility] Last Admin: 02/03/17 21:08 Dose: 10 mg Cefepime HCl (Maxipime 2gm Ivpb (Pre-Docked)) 2 gm IVPB Q8H-IV [facility] PRN Reason: Protocol Last Admin: 02/04/17 09:41 Dose: 2 gm Enoxaparin Sodium (Lovenox -) 40 mg SQ DAILY [facility] Last Admin: 02/04/17 09:39 Dose: 40 mg Azithromycin (Zithromax 500mg Ivpb (Pre-Docked)) 250 mls @ 250 mls/hr IVPB DAILY [facility] Last Admin: 02/04/17 09:39 Dose: 250 mls/hr Vancomycin HCl (Vancomycin (Pre-Docked)) 250 mls @ 200 mls/hr IVPB BID@0030, 1230 [facility] Last Admin: 02/04/17 00:21 Dose: 200 mls/hr Magnesium Oxide (Mag-Ox -) 400 mg PO BID [facility] Last Admin: 02/04/17 09:41 Dose: 400 mg Methylprednisolone Sodium Succinate (Solu-Medrol -) 40 mg IVPB Q8H-IV [facility] Metoprolol Succinate (Toprol Xl -) 50 mg PO DAILY [facility] Last Admin: 02/04/17 09:40 Dose: 50 mg Non-Formulary Medication (Ibrutinib [Imbruvica]) 0 mg PO DAILY@0700 [facility] Pantoprazole Sodium (Protonix -) 40 mg PO DAILY [facility] Last Admin: 02/04/17 09:41 Dose: 40 mg Quinapril HCl (Accupril -) 40 mg PO DAILY [facility] Last Admin: 02/04/17 09:39 Dose: 40 mg Tamsulosin HCl (Flomax -) 0.4 mg PO DAILY@0830 [facility] Last Admin: 02/04/17 09:40 Dose: 0.4 mg ASSESSMENT AND PLAN: Acute Hypoxic Respiratory Failure improving Pneumonia h/o CLL CAD s/p CABG HTN Hypercholesterolemia CKD Lung Nodule - continue medrol, can taper to 40mg q8h - lasix as needed - antibiotics per ID - DVT prophylaxis - will need outpt f/u of chest imaging to ensure resolution of infiltrate and lung nodule - can monitor on floor Problem List - Problems (1) Pneumonia, community acquired Code(s): J18.9 - PNEUMONIA, UNSPECIFIED ORGANISM (2) CAD (coronary artery disease) Code(s): I25.10 - ATHSCL HEART DISEASE OF [place] CORONARY ARTERY W/O ANG PCTRS Qualifiers: Coronary Disease-Associated Artery/Lesion type: [place] artery [place] vs. transplanted heart: [place] heart Associated angina: without angina Qualified Code(s): I25.10 - Atherosclerotic heart disease of [place] coronary artery without angina pectoris (3) HLD (hyperlipidemia) Code(s): E78.5 - HYPERLIPIDEMIA, UNSPECIFIED Qualifiers: Hyperlipidemia type: pure hypercholesterolemia Qualified Code(s): E78.00 - Pure hypercholesterolemia, unspecified; E78.0 - Pure hypercholesterolemia (4) HTN (hypertension) Code(s): I10 - ESSENTIAL (PRIMARY) HYPERTENSION Qualifiers: Hypertension type: essential hypertension Qualified Code(s): I10 - Essential (primary) hypertension (5) CLL (chronic lymphocytic leukemia) Code(s): C91.10 - CHRONIC LYMPHOCYTIC LEUK OF B-CELL TYPE NOT ACHIEVE REMIS
--- NOTE | 2017-02-04 11:48 | PN ---
Physical Exam: SUBJECTIVE: Patient seen and examined. No new complaints. Patient states that his breathing continues to improve. OBJECTIVE: Vital Signs Temperature 98.2 F 02/04/17 10:00 Pulse Rate 78 02/04/17 10:00 Respiratory Rate 20 02/04/17 10:00 Blood Pressure 127/72 02/04/17 10:00 O2 Sat by Pulse Oximetry (%) 95 02/04/17 09:00 GENERAL: The patient is awake, alert, and fully oriented, in no acute distress. HEAD: Normal with no signs of trauma. EYES: extraocular movements intact, sclera anicteric, conjunctiva clear. No ptosis. NECK: Trachea midline, full range of motion, supple. LUNGS: Breath sounds equal, inspiratory crackcles at lung bases, more on right than left, no wheezes, no crackles, no accessory muscle use. HEART: Regular rate and rhythm, S1, S2 without murmur, rub or gallop. ABDOMEN: Soft, nontender, nondistended, normoactive bowel sounds, no guarding, no rebound, no hepatosplenomegaly, no masses. EXTREMITIES: 2+ pulses, warm, well-perfused, no edema. NEUROLOGICAL: Cranial nerves II through X grossly intact. Normal speech, gait not observed. PSYCH: Normal mood, normal affect. SKIN: Warm, dry, normal turgor, no rashes or lesions noted Laboratory Results - last 24 hr 02/04/17 02/04/17 05:10 05:10 WBC 11.0 H D RBC 3.70 L Hgb 10.4 L Hct 31.4 L MCV 84.7 MCH 28.2 MCHC 33.2 RDW 16.2 H Plt Count 191 MPV 9.0 Sodium 141 Potassium 3.8 D Chloride 101 Carbon Dioxide 30 Anion Gap 10 BUN 29 H Creatinine 1.3 Creat Clearance w eGFR 53.39 Random Glucose 257 H Calcium 9.6 Phosphorus 2.6 D Total Bilirubin 0.4 AST 35 D ALT 35 D Alkaline Phosphatase 45 Total Protein 4.8 L Albumin 2.1 L Active Medications Generic Name Dose Route Start Last Admin Trade Name Freq PRN Reason Stop Dose Admin Acetaminophen 650 mg 02/02/17 11:15 Tylenol - PO Q6H PRN FEVER OR PAIN Albuterol Sulfate 1 amp 02/02/17 12:00 02/04/17 06:00 Ventolin 0.083% Nebulizer Soln - NEB 1 amp QIDR [facility] Administration Amlodipine Besylate 5 mg 02/03/17 10:00 02/04/17 09:40 Norvasc - PO 5 mg DAILY [facility] Administration Aspirin 81 mg 02/03/17 10:00 02/04/17 09:40 Asa - PO 81 mg DAILY [facility] Administration Atorvastatin Calcium 10 mg 02/02/17 22:00 02/03/17 21:08 Lipitor - PO 10 mg HS [facility] Administration Cefepime HCl 2 gm 02/02/17 12:30 02/04/17 09:41 Maxipime 2gm Ivpb (Pre-Docked) IVPB 2 gm Q8H-IV [facility] Administration Protocol Enoxaparin Sodium 40 mg 02/03/17 15:15 02/04/17 09:39 Lovenox - SQ 40 mg DAILY [facility] Administration Azithromycin 250 mls @ 250 mls/hr 02/03/17 10:00 02/04/17 09:39 Zithromax 500mg Ivpb (Pre-Docked) IVPB 250 mls/hr DAILY [facility] Administration Vancomycin HCl 250 mls @ 200 mls/hr 02/02/17 12:30 02/04/17 00:21 Vancomycin (Pre-Docked) IVPB 200 mls/hr BID@0030,1230 [facility] Administration Magnesium Oxide 400 mg 02/02/17 22:00 02/04/17 09:41 Mag-Ox - PO 400 mg BID [facility] Administration Methylprednisolone Sodium Succinate 40 mg 02/04/17 18:00 Solu-Medrol - IVPB Q8H-IV [facility] Metoprolol Succinate 50 mg 02/03/17 10:00 02/04/17 09:40 Toprol Xl - PO 50 mg DAILY [facility] Administration Non-Formulary Medication 0 mg 02/03/17 07:00 Ibrutinib [Imbruvica] PO DAILY@0700 [facility] Pantoprazole Sodium 40 mg 02/03/17 10:00 02/04/17 09:41 Protonix - PO 40 mg DAILY [facility] Administration Quinapril HCl 40 mg 02/03/17 10:00 02/04/17 09:39 Accupril - PO 40 mg DAILY [facility] Administration Tamsulosin HCl 0.4 mg 02/03/17 08:30 02/04/17 09:40 Flomax - PO 0.4 mg DAILY@0830 [facility] Administration ASSESSMENT/PLAN: 76 yo m w/ PMH CLL admitted for Pneumonia. Patient transferred to ICU s/p desaturations on the floor. Neuro -A&Ox3, NAD Pulmonary -Community acquired pneumonia; improving -CXR from today shows improvement compared to 02/03 -c/w Cefipime 2g IV, Vancomycin 250ml, Zithromax 500mg PO -decrease methylprednisolone from 60mg q6h to 40mg q8h Cardiology -PMH CAD s/p CABG -Echo from 02/03 shows normal ejection fraction without wall abnormalities FEN -no fluids indicated at this time -Potassium is 3.8 today; repleted -Phosphorus is 2.6 today; repleted -sodium controlled diet Prophylaxsis -enoxaparin 40mg SQ Dispo -stable for transfer to the floor Problem List - Problems (1) CLL (chronic lymphocytic leukemia) Code(s): C91.10 - CHRONIC LYMPHOCYTIC LEUK OF B-CELL TYPE NOT ACHIEVE REMIS (2) Pneumonia, community acquired Code(s): J18.9 - PNEUMONIA, UNSPECIFIED ORGANISM (3) CAD (coronary artery disease) Code(s): I25.10 - ATHSCL HEART DISEASE OF [place] CORONARY ARTERY W/O ANG PCTRS Qualifiers: Coronary Disease-Associated Artery/Lesion type: [place] artery [place] vs. transplanted heart: [place] heart Associated angina: without angina Qualified Code(s): I25.10 - Atherosclerotic heart disease of [place] coronary artery without angina pectoris Visit type - Emergency Visit Emergency Visit: Yes ED Registration Date: 01/29/17 Care time: The patient presented to the Emergency Department on the above date and was hospitalized for further evaluation of their emergent condition. - New Patient This patient is new to me today: No - Critical Care Critical Care patient: Yes Total Critical Care Time (in minutes): 35 Critical Care Statement: The care of this patient involved high complexity decision making to prevent further life threatening deterioration of the patient 's condition and/or to evalute & treat vital organ system(s) failure or risk of failure.
--- NOTE | 2017-02-04 12:11 | PN ---
Progress Note, Physician History of Present Illness: OOB in chair No complaints Breathing non-labored Occasional dry cough Afebrile WBC 11 - Current Medication List Current Medications: Active Medications Acetaminophen (Tylenol -) 650 mg PO Q6H PRN PRN Reason: FEVER OR PAIN Albuterol Sulfate (Ventolin 0.083% Nebulizer Soln -) 1 amp NEB QIDR [facility] Last Admin: 02/04/17 06:00 Dose: 1 amp Amlodipine Besylate (Norvasc -) 5 mg PO DAILY [facility] Last Admin: 02/04/17 09:40 Dose: 5 mg Aspirin (Asa -) 81 mg PO DAILY [facility] Last Admin: 02/04/17 09:40 Dose: 81 mg Atorvastatin Calcium (Lipitor -) 10 mg PO HS [facility] Last Admin: 02/03/17 21:08 Dose: 10 mg Cefepime HCl (Maxipime 2gm Ivpb (Pre-Docked)) 2 gm IVPB Q8H-IV [facility] PRN Reason: Protocol Last Admin: 02/04/17 09:41 Dose: 2 gm Enoxaparin Sodium (Lovenox -) 40 mg SQ DAILY [facility] Last Admin: 02/04/17 09:39 Dose: 40 mg Azithromycin (Zithromax 500mg Ivpb (Pre-Docked)) 250 mls @ 250 mls/hr IVPB DAILY [facility] Last Admin: 02/04/17 09:39 Dose: 250 mls/hr Vancomycin HCl (Vancomycin (Pre-Docked)) 250 mls @ 200 mls/hr IVPB BID@0030, 1230 [facility] Last Admin: 02/04/17 00:21 Dose: 200 mls/hr Magnesium Oxide (Mag-Ox -) 400 mg PO BID [facility] Last Admin: 02/04/17 09:41 Dose: 400 mg Methylprednisolone Sodium Succinate (Solu-Medrol -) 40 mg IVPB Q8H-IV [facility] Metoprolol Succinate (Toprol Xl -) 50 mg PO DAILY [facility] Last Admin: 02/04/17 09:40 Dose: 50 mg Non-Formulary Medication (Ibrutinib [Imbruvica]) 0 mg PO DAILY@0700 [facility] Pantoprazole Sodium (Protonix -) 40 mg PO DAILY [facility] Last Admin: 02/04/17 09:41 Dose: 40 mg Quinapril HCl (Accupril -) 40 mg PO DAILY [facility] Last Admin: 02/04/17 09:39 Dose: 40 mg Tamsulosin HCl (Flomax -) 0.4 mg PO DAILY@0830 [facility] Last Admin: 02/04/17 09:40 Dose: 0.4 mg - Objective Vital Signs: Vital Signs Temperature 98.2 F 02/04/17 10:00 Pulse Rate 78 02/04/17 10:00 Respiratory Rate 20 02/04/17 10:00 Blood Pressure 127/72 02/04/17 10:00 O2 Sat by Pulse Oximetry (%) 95 02/04/17 09:00 Constitutional: Yes: No Distress Eyes: Yes: Conjunctiva Clear Cardiovascular: Yes: Regular Rate and Rhythm, S1, S2 Respiratory: Yes: CTA Bilaterally Gastrointestinal: Yes: Normal Bowel Sounds, Soft. No: Tenderness Edema: No Labs: CBC, BMP 02/04/17 05:10 02/04/17 05:10 Assessment/Plan Bilateral pneumonia CXR today much improved Recurrent fever CLL PCN allergy Continue empiric zithromax/ cefepime D/C vancomycin
--- NOTE | 2017-02-04 13:26 | PN ---
Progress Note (short form) - Note Progress Note: CC: sob, ekg abnormalities Current Medications Acetaminophen (Tylenol -) 650 mg PO Q6H PRN PRN Reason: FEVER OR PAIN Albuterol Sulfate (Ventolin 0.083% Nebulizer Soln -) 1 amp NEB QIDR [facility] Amlodipine Besylate (Norvasc -) 5 mg PO DAILY [facility] Aspirin (Asa -) 81 mg PO DAILY [facility] Atorvastatin Calcium (Lipitor -) 10 mg PO HS [facility] Cefepime HCl (Maxipime 2gm Ivpb (Pre-Docked)) 2 gm IVPB Q8H-IV [facility] PRN Reason: Protocol Enoxaparin Sodium (Lovenox -) 40 mg SQ DAILY [facility] Azithromycin (Zithromax 500mg Ivpb (Pre-Docked)) 250 mls @ 250 mls/hr IVPB DAILY [facility] Magnesium Oxide (Mag-Ox -) 400 mg PO BID [facility] Methylprednisolone Sodium Succinate (Solu-Medrol -) 40 mg IVPB Q8H-IV [facility] Metoprolol Succinate (Toprol Xl -) 50 mg PO DAILY [facility] Non-Formulary Medication (Ibrutinib [Imbruvica]) 0 mg PO DAILY@0700 [facility] Pantoprazole Sodium (Protonix -) 40 mg PO DAILY [facility] Quinapril HCl (Accupril -) 40 mg PO DAILY [facility] Tamsulosin HCl (Flomax -) 0.4 mg PO DAILY@0830 [facility] Vital Signs - 24 hr 02/03/17 02/03/17 02/03/17 14:00 16:00 18:00 Temperature 97.8 F Pulse Rate 94 H 87 92 H Respiratory 18 18 18 Rate Blood Pressure 151/79 123/87 137/74 O2 Sat by Pulse Oximetry (%) 02/03/17 02/03/17 02/03/17 19:54 20:00 22:00 Temperature Pulse Rate 82 69 Respiratory 18 23 Rate Blood Pressure 126/66 122/65 O2 Sat by Pulse 94 L Oximetry (%) 02/04/17 02/04/17 02/04/17 00:00 02:00 04:00 Temperature 97.6 F Pulse Rate 91 H 67 69 Respiratory 22 18 18 Rate Blood Pressure 132/72 130/71 141/78 O2 Sat by Pulse Oximetry (%) 02/04/17 02/04/17 02/04/17 06:00 08:00 09:00 Temperature 97.5 F L Pulse Rate 66 78 Respiratory 20 20 Rate Blood Pressure 140/74 128/72 O2 Sat by Pulse 95 Oximetry (%) 02/04/17 02/04/17 10:00 12:00 Temperature 98.2 F Pulse Rate 78 90 Respiratory 20 20 Rate Blood Pressure 127/72 136/70 O2 Sat by Pulse Oximetry (%) Intake & Output 02/02/17 02/03/17 02/04/17 02/05/17 07:59 07:59 07:59 07:59 Intake Total 3550 3370 2360 Output Total 3000 2700 2850 Balance 550 670 -490 Weight 159 lb 2.78 oz 161 lb 13.109 oz nad, calm + diaphoresis, no jaundice diffuse rhonchi, nl effort rrr nl s1, s2 no mrg + bs soft nt nd ext without e/c/c no carotid bruits aaox3 + dp/pt CBC, BMP 02/04/17 05:10 02/04/17 05:10 01/29 EKG: sr, leftward axis. lvh with qrs widening. no ischemic changes EKG 02/02: tele: 02/02 CXR: progressive airpspace changes/infiltrates over previously seen lung densities. (by my review, progressive 4 quadrant infiltrates although predominantly affecting the right lung. possible small pleural effusions) chest CT: asc aneurysm 4.2 cm. B upper lobe PNA with multiple B upper lobe nodules (ddx lymphomatous infiltrates, metastatic foci, inflammatory foci 2/2 pna), carin masses in retroperitoneum c/w recurrent lymphoma. 76 yo with h/o CAD s/p CABG, HTN, HL, mild asc ao dilation, Gastritis, GERD, Inflamatory Bowel Disease, Peptic Ulcer Disease, Duodenal adenoma, Pancreatic cyst, Renal Inusuff, BPH, Small lymphocytic Lymphoma, CLL, Polycythemia Vera p/ w fevers/sob and noted to have bilateral upper lobe pna/possible recurrence of lymphoma. Hospital course now c/b acute worsening of resp status/EKG abnormalities. PNA vs. lymphomatous infiltrates - ongoing eval/mgm't per pmd/pulm/critical care - paolorid response morning 02/02: acute resp distress/hypoxia 80's. O2 improved with nebs. worsening infiltrates on CXR. Transferred to ICU. IVF for hypercalcemia stopped (now resolved). Given dose of lasix 40 mg IV x 1 today with additional improvement in respiratory status. . - will get echo to assess underlying systolic/diastolic function. EKG changes/? sinus tach - as mentioned above, unable to locate ekg in chart or in muse. Will look again tomorrow. trop neg x 1. - lyte repletion CAD s/p CABG - ? 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 also on flomax for bph HL - con't statin mild asc ao dilation - 4.[address] cm noted on chest CT. con't bb and bp control. routine outpatient monitoring. cct > 35 min
--- NOTE | 2017-02-04 16:52 | PN ---
Progress Note, Physician History of Present Illness: Pt seen and examined at bedside. He is out of bed to chair. He feels that his breathing is improved today. - Current Medication List Current Medications: Active Medications Acetaminophen (Tylenol -) 650 mg PO Q6H PRN PRN Reason: FEVER OR PAIN Albuterol Sulfate (Ventolin 0.083% Nebulizer Soln -) 1 amp NEB QIDR [facility] Amlodipine Besylate (Norvasc -) 5 mg PO DAILY [facility] Aspirin (Asa -) 81 mg PO DAILY [facility] Atorvastatin Calcium (Lipitor -) 10 mg PO HS [facility] Cefepime HCl (Maxipime 2gm Ivpb (Pre-Docked)) 2 gm IVPB Q8H-IV [facility] PRN Reason: Protocol Enoxaparin Sodium (Lovenox -) 40 mg SQ DAILY [facility] Azithromycin (Zithromax 500mg Ivpb (Pre-Docked)) 250 mls @ 250 mls/hr IVPB DAILY [facility] Magnesium Oxide (Mag-Ox -) 400 mg PO BID [facility] Methylprednisolone Sodium Succinate (Solu-Medrol -) 40 mg IVPB Q8H-IV [facility] Metoprolol Succinate (Toprol Xl -) 50 mg PO DAILY [facility] Non-Formulary Medication (Ibrutinib [Imbruvica]) 0 mg PO DAILY@0700 [facility] Pantoprazole Sodium (Protonix -) 40 mg PO DAILY [facility] Quinapril HCl (Accupril -) 40 mg PO DAILY [facility] Tamsulosin HCl (Flomax -) 0.4 mg PO DAILY@0830 [facility] - Objective Vital Signs: Vital Signs Temperature 97.8 F 02/04/17 16:00 Pulse Rate 74 02/04/17 16:00 Respiratory Rate 18 02/04/17 16:00 Blood Pressure 140/72 02/04/17 16:00 O2 Sat by Pulse Oximetry (%) 95 02/04/17 09:00 Constitutional: Yes: Calm Eyes: Yes: Conjunctiva Clear HENT: Yes: Atraumatic Neck: Yes: Supple Cardiovascular: Yes: S1, S2 Respiratory: Yes: On Nasal O2 Gastrointestinal: Yes: Normal Bowel Sounds, Soft Genitourinary: Yes: WNL Musculoskeletal: Yes: WNL Edema: No Neurological: Yes: Oriented Psychiatric: Yes: Oriented Labs: CBC, BMP 02/04/17 05:10 02/04/17 05:10 Problem List - Problems (1) CLL (chronic lymphocytic leukemia) Code(s): C91.10 - CHRONIC LYMPHOCYTIC LEUK OF B-CELL TYPE NOT ACHIEVE REMIS (2) Hypercalcemia Code(s): E83.52 - HYPERCALCEMIA Assessment/Plan Current Medications Generic Name Dose Route Start Last Admin Trade Name Freq PRN Reason Stop Dose Admin Acetaminophen 650 mg 02/04/17 12:32 Tylenol - PO Q6H PRN FEVER OR PAIN Albuterol Sulfate 1 amp 02/04/17 18:00 Ventolin 0.083% Nebulizer Soln - NEB QIDR [facility] Amlodipine Besylate 5 mg 02/05/17 10:00 Norvasc - PO DAILY [facility] Aspirin 81 mg 02/05/17 10:00 Asa - PO DAILY [facility] Atorvastatin Calcium 10 mg 02/04/17 22:00 Lipitor - PO HS [facility] Cefepime HCl 2 gm 02/04/17 18:00 Maxipime 2gm Ivpb (Pre-Docked) IVPB Q8H-IV [facility] Protocol Enoxaparin Sodium 40 mg 02/05/17 10:00 Lovenox - SQ DAILY [facility] Azithromycin 250 mls @ 250 mls/hr 02/05/17 10:00 Zithromax 500mg Ivpb (Pre-Docked) IVPB DAILY [facility] Magnesium Oxide 400 mg 02/04/17 22:00 Mag-Ox - PO BID [facility] Methylprednisolone Sodium Succinate 40 mg 02/04/17 18:00 Solu-Medrol - IVPB Q8H-IV [facility] Metoprolol Succinate 50 mg 02/05/17 10:00 Toprol Xl - PO DAILY [facility] Non-Formulary Medication 0 mg 02/05/17 07:00 Ibrutinib [Imbruvica] PO DAILY@0700 [facility] Pantoprazole Sodium 40 mg 02/05/17 10:00 Protonix - PO DAILY [facility] Quinapril HCl 40 mg 02/05/17 10:00 Accupril - PO DAILY [facility] Tamsulosin HCl 0.4 mg 02/05/17 08:30 Flomax - PO DAILY@0830 [facility] Impression 1. Hypercalcemia 2. CAD 3. HTN 4. Chol 5. hx leukemia 6. non hodgkins lymphoma 7. CKD 8. hypokalemia Plan - renal function is stable - potassium is improved - monitor calcium levels - oncology follow up Dr Hopper
[2017-02-04] MEDS ORDERED: methylPREDNISolone NA SUCC 40 MG/1 ML VIAL IVPB SCH (18:00)
--- NOTE | 2017-02-04 21:23 | PN ---
Progress Note, Physician Chief Complaint: Not in distress Patient was seen and examined today History of Present Illness: Patient was seen and examined in ICU earlier this afternoon prior to transfer to floor. Awake and alert. Chart was reviewed Denies chest pain or palpitations. Feels better Cardiology service was transferred to [facility] since he is a patient who follows in our office. (Dr. Therese willams) - Current Medication List Current Medications: Active Medications Acetaminophen (Tylenol -) 650 mg PO Q6H PRN PRN Reason: FEVER OR PAIN Albuterol Sulfate (Ventolin 0.083% Nebulizer Soln -) 1 amp NEB QIDR [facility] Last Admin: 02/04/17 19:05 Dose: 1 amp Amlodipine Besylate (Norvasc -) 5 mg PO DAILY [facility] Aspirin (Asa -) 81 mg PO DAILY [facility] Atorvastatin Calcium (Lipitor -) 10 mg PO HS [facility] Cefepime HCl (Maxipime 2gm Ivpb (Pre-Docked)) 2 gm IVPB Q8H-IV [facility] PRN Reason: Protocol Last Admin: 02/04/17 17:14 Dose: 2 gm Enoxaparin Sodium (Lovenox -) 40 mg SQ DAILY [facility] Azithromycin (Zithromax 500mg Ivpb (Pre-Docked)) 250 mls @ 250 mls/hr IVPB DAILY [facility] Magnesium Oxide (Mag-Ox -) 400 mg PO BID [facility] Methylprednisolone Sodium Succinate (Solu-Medrol -) 40 mg IVPB Q8H-IV [facility] Last Admin: 02/04/17 17:14 Dose: 40 mg Metoprolol Succinate (Toprol Xl -) 50 mg PO DAILY [facility] Non-Formulary Medication (Ibrutinib [Imbruvica]) 0 mg PO DAILY@0700 [facility] Pantoprazole Sodium (Protonix -) 40 mg PO DAILY [facility] Quinapril HCl (Accupril -) 40 mg PO DAILY [facility] Tamsulosin HCl (Flomax -) 0.4 mg PO DAILY@0830 [facility] - Objective Vital Signs: Vital Signs Temperature 97.6 F 02/04/17 20:00 Pulse Rate 78 02/04/17 20:00 Respiratory Rate 18 02/04/17 20:00 Blood Pressure 161/86 02/04/17 20:00 O2 Sat by Pulse Oximetry (%) 96 02/04/17 19:48 Neck: Yes: Supple Cardiovascular: Yes: Regular Rate and Rhythm, S1, S2 Respiratory: Yes: Diminished Gastrointestinal: Yes: Normal Bowel Sounds, Soft. No: Tenderness Edema: No Additional Findings/Remarks: Review of System HEENT: No headache, photophobia, blurring of vision CARD: No chest pain, palpitations (+) SOB RESP: (+) cough, sputum production, (-) hemoptysis ABD: No nausea, vomiting, diarrhea, abdominal pain, melena, hematemesis MUSC: No joint pains UROL: No urinary symptoms NEURO: No seizure, syncope Labs: CBC, BMP 02/04/17 05:10 02/04/17 05:10 Problem List - Problems (1) CKD (chronic kidney disease) Code(s): N18.9 - CHRONIC KIDNEY DISEASE, UNSPECIFIED Qualifiers: Chronic kidney disease stage: stage 2 (mild) Qualified Code(s): N18.2 - Chronic kidney disease, stage 2 (mild) (2) CLL (chronic lymphocytic leukemia) Code(s): C91.10 - CHRONIC LYMPHOCYTIC LEUK OF B-CELL TYPE NOT ACHIEVE REMIS (3) Pneumonia, community acquired Code(s): J18.9 - PNEUMONIA, UNSPECIFIED ORGANISM (4) CAD (coronary artery disease) Code(s): I25.10 - ATHSCL HEART DISEASE OF [place] CORONARY ARTERY W/O ANG PCTRS Qualifiers: Coronary Disease-Associated Artery/Lesion type: [place] artery [place] vs. transplanted heart: [place] heart Associated angina: without angina Qualified Code(s): I25.10 - Atherosclerotic heart disease of [place] coronary artery without angina pectoris (5) HLD (hyperlipidemia) Code(s): E78.5 - HYPERLIPIDEMIA, UNSPECIFIED Qualifiers: Hyperlipidemia type: pure hypercholesterolemia Qualified Code(s): E78.00 - Pure hypercholesterolemia, unspecified; E78.0 - Pure hypercholesterolemia (6) HTN (hypertension) Code(s): I10 - ESSENTIAL (PRIMARY) HYPERTENSION Qualifiers: Hypertension type: essential hypertension Qualified Code(s): I10 - Essential (primary) hypertension (7) Hypercalcemia Code(s): E83.52 - HYPERCALCEMIA (8) Ascending aortic aneurysm Code(s): I71.2 - THORACIC AORTIC ANEURYSM, WITHOUT RUPTURE (9) Hypokalemia Code(s): E87.6 - HYPOKALEMIA (10) Hx of CABG Code(s): Z95.1 - PRESENCE OF AORTOCORONARY BYPASS GRAFT Assessment/Plan 1. Respiratory distress due to community acquired pneumonia 2. Coronary artery disease status post CABG, angina pectoris 3. Hypertension 4. Hypercholesterolemia 5. Ascending aortic aneurysm 6. CLL 7. Hypokalemia and hypercalcemia 8. anemia 9. CKD PLAN: 1. Continue current pulmonary management with antibiotic coverage, steroids and nebulizer treatment 2. Continue Metoprolol ER, Amlodipine and Accupril 3. Continue Atorvastatin (previously was on Vytorin) 4. Continue ASA 5. Continue treatment for CLL 6. Ascending aortic aneurysm can be followed as outpatient 7. K supplement and monitor electrolytes Further plans are to follow. Transfer to floor care Garret Estes MD
[2017-02-04] MEDS: ATORVASTATIN CA 10 MG TABLET (FP) PO SCH (22:35)
[2017-02-05] MEDS: methylPREDNISolone NA SUCC 40 MG/1 ML VIAL IVPB SCH ×3 (02:55→17:15)
[2017-02-05] MEDS: CEFEPIME 2 GM/100 ML BAG PRE-DOCKED IVPB SCH ×3 (03:27→17:49)
[2017-02-05] MEDS: ALBUTEROL SO4 0.083% IH SOL 2.5 MG/3 ML VIAL.NEB. NEB SCH ×4 (06:50→23:13)
[2017-02-05 07:37] LABS: MCHC 33.2 g/dl (32.0-35.9); MEAN CELL VOLUME 84.4 fl (80-96); MEAN PLT VOLUME 8.5 fl (7.5-11.1); PLATELET COUNT 199 K/MM3 (134-434); RDW 15.8 % (11.9-15.9); WHITE BLOOD COUNT 13.5 K/mm3 (4.0-10.0)
[2017-02-05 08:46] LABS: ALBUMIN 2.3 g/dl (3.4-5.0); ANION GAP 11 (8-16); BILIRUBIN,TOTAL 0.3 mg/dL (0.2-1.0); CALCIUM 9.7 mg/dL (8.5-10.1); CO2 28 mmol/L (21-32); CREATININE 1.2 mg/dL (0.7-1.3); GLUCOSE,RANDOM 249 mg/dL (74-106); SGOT/AST 34 U/L (15-37); SGPT/ALT 52 U/L (12-78); TOT PROT 5.1 g/dl (6.4-8.2)
[2017-02-05 08:47] LABS: ALK PHOS 56 U/L (45-117)
[2017-02-05] MEDS ORDERED: PT OWN MED DRAWER 7, Y5N ONE ×2 (10:15→16:43)
[2017-02-05] MEDS: ENOXAPARIN NA (PORCINE) 40 MG/0.4 ML DISP.SYRIN SQ SCH (10:20)
[2017-02-05] MEDS: QUINAPRIL HCL 40 MG TABLET (FP) PO SCH (10:20)
[2017-02-05] MEDS: METOPROLOL SUCCINATE 50 MG TAB.SR.24H (FP) PO SCH (10:21)
[2017-02-05] MEDS: ASPIRIN 81 MG CHEWABLE TABLETS PO SCH (10:21)
[2017-02-05] MEDS: TAMSULOSIN HCL 0.4 MG CAP.ER.24H (FP) PO SCH (10:21)
[2017-02-05] MEDS: MAGNESIUM OXIDE 400 MG TABLET (FP) PO SCH ×2 (10:22→21:51)
[2017-02-05] MEDS: PANTOPRAZOLE 40 MG TABLET (FP) PO SCH (10:22)
[2017-02-05] MEDS: amLODIPine BESYLATE 5 MG TABLET (FP) PO SCH (10:22)
--- NOTE | 2017-02-05 10:35 | PN ---
Progress Note, Physician Chief Complaint: Mr Saucedo says he is feeling better. Says he is less short of breath. No cp or n/v. - Current Medication List Current Medications: Active Medications Acetaminophen (Tylenol -) 650 mg PO Q6H PRN PRN Reason: FEVER OR PAIN Albuterol Sulfate (Ventolin 0.083% Nebulizer Soln -) 1 amp NEB QIDR [facility] Last Admin: 02/05/17 06:50 Dose: 1 amp Amlodipine Besylate (Norvasc -) 5 mg PO DAILY [facility] Last Admin: 02/05/17 10:22 Dose: 5 mg Aspirin (Asa -) 81 mg PO DAILY [facility] Last Admin: 02/05/17 10:21 Dose: 81 mg Atorvastatin Calcium (Lipitor -) 10 mg PO HS [facility] Last Admin: 02/04/17 22:35 Dose: 10 mg Cefepime HCl (Maxipime 2gm Ivpb (Pre-Docked)) 2 gm IVPB Q8H-IV [facility] PRN Reason: Protocol Last Admin: 02/05/17 03:27 Dose: 2 gm Enoxaparin Sodium (Lovenox -) 40 mg SQ DAILY [facility] Last Admin: 02/05/17 10:20 Dose: 40 mg Azithromycin (Zithromax 500mg Ivpb (Pre-Docked)) 250 mls @ 250 mls/hr IVPB DAILY [facility] Magnesium Oxide (Mag-Ox -) 400 mg PO BID [facility] Last Admin: 02/05/17 10:22 Dose: 400 mg Methylprednisolone Sodium Succinate (Solu-Medrol -) 40 mg IVPB Q8H-IV [facility] Last Admin: 02/05/17 10:21 Dose: 40 mg Metoprolol Succinate (Toprol Xl -) 50 mg PO DAILY [facility] Last Admin: 02/05/17 10:21 Dose: 50 mg Non-Formulary Medication (Ibrutinib [Imbruvica]) 0 mg PO DAILY@0700 [facility] Pantoprazole Sodium (Protonix -) 40 mg PO DAILY [facility] Last Admin: 02/05/17 10:22 Dose: 40 mg Quinapril HCl (Accupril -) 40 mg PO DAILY [facility] Last Admin: 02/05/17 10:20 Dose: 40 mg Tamsulosin HCl (Flomax -) 0.4 mg PO DAILY@0830 [facility] Last Admin: 02/05/17 10:21 Dose: 0.4 mg - Objective Vital Signs: Vital Signs Temperature 97.9 F 02/05/17 06:00 Pulse Rate 89 02/05/17 09:00 Respiratory Rate 20 02/05/17 08:55 Blood Pressure 150/78 02/05/17 08:55 O2 Sat by Pulse Oximetry (%) 96 02/05/17 09:00 Constitutional: Yes: Well Nourished, No Distress, Calm Cardiovascular: Yes: Regular Rate and Rhythm. No: Gallop, Murmur, Rub Respiratory: Yes: Regular, On Nasal O2, Rhonchi (bibasilar). No: CTA Bilaterally, Rales, Wheezes Gastrointestinal: Yes: Normal Bowel Sounds, Soft. No: Distention, Tenderness Extremities: Yes: WNL Edema: No Labs: CBC, BMP 02/05/17 06:15 02/05/17 06:15 Problem List - Problems (1) Acute respiratory failure Code(s): J96.00 - ACUTE RESPIRATORY FAILURE, UNSP W HYPOXIA OR HYPERCAPNIA (2) Pneumonia, community acquired Code(s): J18.9 - PNEUMONIA, UNSPECIFIED ORGANISM (3) CKD (chronic kidney disease) Code(s): N18.9 - CHRONIC KIDNEY DISEASE, UNSPECIFIED Qualifiers: Chronic kidney disease stage: stage 2 (mild) Qualified Code(s): N18.2 - Chronic kidney disease, stage 2 (mild) (4) CLL (chronic lymphocytic leukemia) Code(s): C91.10 - CHRONIC LYMPHOCYTIC LEUK OF B-CELL TYPE NOT ACHIEVE REMIS (5) CAD (coronary artery disease) Code(s): I25.10 - ATHSCL HEART DISEASE OF [place] CORONARY ARTERY W/O ANG PCTRS Qualifiers: Coronary Disease-Associated Artery/Lesion type: [place] artery [place] vs. transplanted heart: [place] heart Associated angina: without angina Qualified Code(s): I25.10 - Atherosclerotic heart disease of [place] coronary artery without angina pectoris (6) HLD (hyperlipidemia) Code(s): E78.5 - HYPERLIPIDEMIA, UNSPECIFIED Qualifiers: Hyperlipidemia type: pure hypercholesterolemia Qualified Code(s): E78.00 - Pure hypercholesterolemia, unspecified; E78.0 - Pure hypercholesterolemia (7) HTN (hypertension) Code(s): I10 - ESSENTIAL (PRIMARY) HYPERTENSION Qualifiers: Hypertension type: essential hypertension Qualified Code(s): I10 - Essential (primary) hypertension (8) Hypercalcemia Code(s): E83.52 - HYPERCALCEMIA (9) Hypophosphatemia Code(s): E83.39 - OTHER DISORDERS OF PHOSPHORUS METABOLISM Assessment/Plan (1) Acute respiratory failure -improving -continue oxygen -steroids per pulmonary -incentive spirometer -begin to wean off oxygen -PT for ambulation (2) Pneumonia, community acquired Assessment/Plan: -afebrile for 72 hours -ID following -continue cefepime and zithromax Code(s): J18.9 - PNEUMONIA, UNSPECIFIED ORGANISM (3) CKD (chronic kidney disease) Assessment/Plan: -at baseline -monitor Code(s): N18.9 - CHRONIC KIDNEY DISEASE, UNSPECIFIED Qualifiers: Chronic kidney disease stage: stage 2 (mild) Qualified Code(s): N18.2 - Chronic kidney disease, stage 2 (mild) (4) CLL (chronic lymphocytic leukemia) Assessment/Plan: -holding home ibrutinib -oncology following Code(s): C91.10 - CHRONIC LYMPHOCYTIC LEUK OF B-CELL TYPE NOT ACHIEVE REMIS (5) CAD (coronary artery disease) Assessment/Plan: -quiescent, no chest pain -continue home regimen Code(s): I25.10 - ATHSCL HEART DISEASE OF [place] CORONARY ARTERY W/O ANG PCTRS (6) HLD (hyperlipidemia) Assessment/Plan: -continue statin Code(s): E78.5 - HYPERLIPIDEMIA, UNSPECIFIED (7) HTN (hypertension) Assessment/Plan: -controlled -continue norvasc, toprol xl, and quinapril Code(s): I10 - ESSENTIAL (PRIMARY) HYPERTENSION (8) Hypercalcemia -improved and stable -off IVF and lasix -monitor (9) Hypophosphatemia -neutraphos tid x 6 doses -monitor
--- NOTE | 2017-02-05 11:50 | PN ---
Progress Note, Physician History of Present Illness: Dyspnea improving, denies cough or chest pain. - Current Medication List Current Medications: Active Medications Acetaminophen (Tylenol -) 650 mg PO Q6H PRN PRN Reason: FEVER OR PAIN Albuterol Sulfate (Ventolin 0.083% Nebulizer Soln -) 1 amp NEB QIDR [facility] Last Admin: 02/05/17 06:50 Dose: 1 amp Amlodipine Besylate (Norvasc -) 5 mg PO DAILY [facility] Last Admin: 02/05/17 10:22 Dose: 5 mg Aspirin (Asa -) 81 mg PO DAILY [facility] Last Admin: 02/05/17 10:21 Dose: 81 mg Atorvastatin Calcium (Lipitor -) 10 mg PO HS [facility] Last Admin: 02/04/17 22:35 Dose: 10 mg Cefepime HCl (Maxipime 2gm Ivpb (Pre-Docked)) 2 gm IVPB Q8H-IV [facility] PRN Reason: Protocol Last Admin: 02/05/17 03:27 Dose: 2 gm Enoxaparin Sodium (Lovenox -) 40 mg SQ DAILY [facility] Last Admin: 02/05/17 10:20 Dose: 40 mg Azithromycin (Zithromax 500mg Ivpb (Pre-Docked)) 250 mls @ 250 mls/hr IVPB DAILY [facility] Magnesium Oxide (Mag-Ox -) 400 mg PO BID [facility] Last Admin: 02/05/17 10:22 Dose: 400 mg Methylprednisolone Sodium Succinate (Solu-Medrol -) 40 mg IVPB Q8H-IV [facility] Last Admin: 02/05/17 10:21 Dose: 40 mg Metoprolol Succinate (Toprol Xl -) 50 mg PO DAILY [facility] Last Admin: 02/05/17 10:21 Dose: 50 mg Non-Formulary Medication (Ibrutinib [Imbruvica]) 0 mg PO DAILY@0700 [facility] Pantoprazole Sodium (Protonix -) 40 mg PO DAILY [facility] Last Admin: 02/05/17 10:22 Dose: 40 mg Potassium Phos/Sodium Phos (Phos-Nak Packet -) 1 packet PO TID [facility] Stop: 02/07/17 06:01 Quinapril HCl (Accupril -) 40 mg PO DAILY [facility] Last Admin: 02/05/17 10:20 Dose: 40 mg Tamsulosin HCl (Flomax -) 0.4 mg PO DAILY@0830 [facility] Last Admin: 02/05/17 10:21 Dose: 0.4 mg - Objective Vital Signs: Vital Signs Temperature 97.9 F 02/05/17 06:00 Pulse Rate 89 02/05/17 09:00 Respiratory Rate 20 02/05/17 08:55 Blood Pressure 150/78 02/05/17 08:55 O2 Sat by Pulse Oximetry (%) 96 02/05/17 09:00 Constitutional: Yes: No Distress, Calm Neck: Yes: Supple Cardiovascular: Yes: Regular Rate and Rhythm Respiratory: Yes: Regular, Diminished, On Nasal O2 Gastrointestinal: Yes: Normal Bowel Sounds, Soft Edema: No Labs: CBC, BMP 02/05/17 06:15 02/05/17 06:15 - ....Imaging Chest X-ray: Report Reviewed (Improved aeration right lung) Problem List - Problems (1) Acute respiratory failure Code(s): J96.00 - ACUTE RESPIRATORY FAILURE, UNSP W HYPOXIA OR HYPERCAPNIA (2) Ascending aortic aneurysm Code(s): I71.2 - THORACIC AORTIC ANEURYSM, WITHOUT RUPTURE (3) CKD (chronic kidney disease) Code(s): N18.9 - CHRONIC KIDNEY DISEASE, UNSPECIFIED Qualifiers: Chronic kidney disease stage: stage 2 (mild) Qualified Code(s): N18.2 - Chronic kidney disease, stage 2 (mild) (4) CLL (chronic lymphocytic leukemia) Code(s): C91.10 - CHRONIC LYMPHOCYTIC LEUK OF B-CELL TYPE NOT ACHIEVE REMIS (5) Hx of CABG Code(s): Z95.1 - PRESENCE OF AORTOCORONARY BYPASS GRAFT (6) Hypokalemia Code(s): E87.6 - HYPOKALEMIA (7) Pneumonia, community acquired Code(s): J18.9 - PNEUMONIA, UNSPECIFIED ORGANISM (8) CAD (coronary artery disease) Code(s): I25.10 - ATHSCL HEART DISEASE OF [place] CORONARY ARTERY W/O ANG PCTRS Qualifiers: Coronary Disease-Associated Artery/Lesion type: [place] artery [place] vs. transplanted heart: [place] heart Associated angina: without angina Qualified Code(s): I25.10 - Atherosclerotic heart disease of [place] coronary artery without angina pectoris (9) HLD (hyperlipidemia) Code(s): E78.5 - HYPERLIPIDEMIA, UNSPECIFIED Qualifiers: Hyperlipidemia type: pure hypercholesterolemia Qualified Code(s): E78.00 - Pure hypercholesterolemia, unspecified; E78.0 - Pure hypercholesterolemia (10) HTN (hypertension) Code(s): I10 - ESSENTIAL (PRIMARY) HYPERTENSION Qualifiers: Hypertension type: essential hypertension Qualified Code(s): I10 - Essential (primary) hypertension Assessment/Plan 1. Acute respiratory failure due to community acquired pneumonia 2. Coronary artery disease status post CABG, angina pectoris 3. Hypertension 4. Hypercholesterolemia 5. Ascending aortic aneurysm 6. CLL 7. Hypokalemia and hypercalcemia 8. Anemia 9. CKD PLAN: 1. Continue current pulmonary management with antibiotic coverage, IV steroids, O2 and nebulizer treatment 2. Continue Metoprolol ER 50 qd, Amlodipine 5 qd and Accupril 40 qd 3. Continue Atorvastatin 10 qhs (previously was on Vytorin) 4. Continue ASA 81 qd 5. Continue Imbruvica for CLL 6. Ascending aortic aneurysm can be followed as outpatient 7. K supplement and monitor electrolytes 8. DVT and GI prophylaxis
--- NOTE | 2017-02-05 12:37 | PN ---
Progress Note, Physician History of Present Illness: PULMONARY ALERT,NAD,LESS COUGH - Current Medication List Current Medications: Active Medications Acetaminophen (Tylenol -) 650 mg PO Q6H PRN PRN Reason: FEVER OR PAIN Albuterol Sulfate (Ventolin 0.083% Nebulizer Soln -) 1 amp NEB QIDR [facility] Last Admin: 02/05/17 11:45 Dose: 1 amp Amlodipine Besylate (Norvasc -) 5 mg PO DAILY [facility] Last Admin: 02/05/17 10:22 Dose: 5 mg Aspirin (Asa -) 81 mg PO DAILY [facility] [place] Last Admin: 02/05/17 10:21 Dose: 81 mg Atorvastatin Calcium (Lipitor -) 10 mg PO HS [facility] Last Admin: 02/04/17 22:35 Dose: 10 mg Cefepime HCl (Maxipime 2gm Ivpb (Pre-Docked)) 2 gm IVPB Q8H-IV [facility] PRN Reason: Protocol Last Admin: 02/05/17 12:06 Dose: 2 gm Enoxaparin Sodium (Lovenox -) 40 mg SQ DAILY [facility] [place] Last Admin: 02/05/17 10:20 Dose: 40 mg Azithromycin (Zithromax 500mg Ivpb (Pre-Docked)) 250 mls @ 250 mls/hr IVPB DAILY [facility] [place] Magnesium Oxide (Mag-Ox -) 400 mg PO BID [facility] [place] Last Admin: 02/05/17 10:22 Dose: 400 mg Methylprednisolone Sodium Succinate (Solu-Medrol -) 40 mg IVPB Q8H-IV [facility] [place] Last Admin: 02/05/17 10:21 Dose: 40 mg Metoprolol Succinate (Toprol Xl -) 50 mg PO DAILY [facility] [place] Last Admin: 02/05/17 10:21 Dose: 50 mg Non-Formulary Medication (Ibrutinib [Imbruvica]) 0 mg PO DAILY@0700 [facility] [place] Pantoprazole Sodium (Protonix -) 40 mg PO DAILY [facility] [place] Last Admin: 02/05/17 10:22 Dose: 40 mg Potassium Phos/Sodium Phos (Phos-Nak Packet -) 1 packet PO TID [facility] Stop: 02/07/17 06:01 Quinapril HCl (Accupril -) 40 mg PO DAILY [facility] Last Admin: 02/05/17 10:20 Dose: 40 mg Tamsulosin HCl (Flomax -) 0.4 mg PO DAILY@0830 [facility] Last Admin: 02/05/17 10:21 Dose: 0.4 mg - Objective Vital Signs: Vital Signs Temperature 97.9 F 02/05/17 06:00 Pulse Rate 89 02/05/17 09:00 Respiratory Rate 20 02/05/17 08:55 Blood Pressure 150/78 02/05/17 08:55 O2 Sat by Pulse Oximetry (%) 96 02/05/17 09:00 Constitutional: Yes: Well Nourished, Calm Eyes: Yes: WNL HENT: Yes: WNL Neck: Yes: WNL Cardiovascular: Yes: Regular Rate and Rhythm, S1, S2 Respiratory: Yes: Diminished Gastrointestinal: Yes: Normal Bowel Sounds, Soft Extremities: Yes: WNL Edema: No Labs: CBC, BMP 02/05/17 06:15 02/05/17 06:15 Assessment/Plan ASSESSMENT AND PLAN: Acute Hypoxic Respiratory Failure improving Pneumonia clinically improving h/o CLL CAD s/p CABG HTN Hypercholesterolemia CKD Lung Nodule - medrol - lasix as needed - antibiotics per ID - DVT prophylaxis - will need outpt f/u of chest imaging to ensure resolution of infiltrate and lung nodule Problem List - Problems (1) Pneumonia, community acquired Code(s): J18.9 - PNEUMONIA, UNSPECIFIED ORGANISM (2) CAD (coronary artery disease) Code(s): I25.10 - ATHSCL HEART DISEASE OF [place] CORONARY ARTERY W/O ANG PCTRS Qualifiers: Coronary Disease-Associated Artery/Lesion type: [place] artery [place] vs. transplanted heart: [place] heart Associated angina: without angina Qualified Code(s): I25.10 - Atherosclerotic heart disease of [place] coronary artery without angina pectoris (3) HLD (hyperlipidemia) Code(s): E78.5 - HYPERLIPIDEMIA, UNSPECIFIED Qualifiers: Hyperlipidemia type: pure hypercholesterolemia Qualified Code(s): E78.00 - Pure hypercholesterolemia, unspecified; E78.0 - Pure hypercholesterolemia (4) HTN (hypertension) Code(s): I10 - ESSENTIAL (PRIMARY) HYPERTENSION Qualifiers: Hypertension type: essential hypertension Qualified Code(s): I10 - Essential (primary) hypertension (5) CLL (chronic lymphocytic leukemia) Code(s): C91.10 - CHRONIC LYMPHOCYTIC LEUK OF B-CELL TYPE NOT ACHIEVE REMIS
--- NOTE | 2017-02-05 12:56 | PN ---
Progress Note, Physician History of Present Illness: Transferred to regular floor OOB in chair Breathing comfortably on NC No c/o chest pain/ dyspnea No cough No fever/ chills WBC elevated on steroids - Current Medication List Current Medications: Active Medications Acetaminophen (Tylenol -) 650 mg PO Q6H PRN PRN Reason: FEVER OR PAIN Albuterol Sulfate (Ventolin 0.083% Nebulizer Soln -) 1 amp NEB QIDR [facility] Last Admin: 02/05/17 11:45 Dose: 1 amp Amlodipine Besylate (Norvasc -) 5 mg PO DAILY [facility] Last Admin: 02/05/17 10:22 Dose: 5 mg Aspirin (Asa -) 81 mg PO DAILY [facility] Last Admin: 02/05/17 10:21 Dose: 81 mg Atorvastatin Calcium (Lipitor -) 10 mg PO HS [facility] Last Admin: 02/04/17 22:35 Dose: 10 mg Cefepime HCl (Maxipime 2gm Ivpb (Pre-Docked)) 2 gm IVPB Q8H-IV [facility] PRN Reason: Protocol Last Admin: 02/05/17 12:06 Dose: 2 gm Enoxaparin Sodium (Lovenox -) 40 mg SQ DAILY [facility] Last Admin: 02/05/17 10:20 Dose: 40 mg Azithromycin (Zithromax 500mg Ivpb (Pre-Docked)) 250 mls @ 250 mls/hr IVPB DAILY [facility] Magnesium Oxide (Mag-Ox -) 400 mg PO BID [facility] Last Admin: 02/05/17 10:22 Dose: 400 mg Methylprednisolone Sodium Succinate (Solu-Medrol -) 40 mg IVPB Q8H-IV [facility] Last Admin: 02/05/17 10:21 Dose: 40 mg Metoprolol Succinate (Toprol Xl -) 50 mg PO DAILY [facility] Last Admin: 02/05/17 10:21 Dose: 50 mg Non-Formulary Medication (Ibrutinib [Imbruvica]) 0 mg PO DAILY@0700 [facility] Pantoprazole Sodium (Protonix -) 40 mg PO DAILY [facility] Last Admin: 02/05/17 10:22 Dose: 40 mg Potassium Phos/Sodium Phos (Phos-Nak Packet -) 1 packet PO TID [facility] Stop: 02/07/17 06:01 Quinapril HCl (Accupril -) 40 mg PO DAILY [facility] Last Admin: 02/05/17 10:20 Dose: 40 mg Tamsulosin HCl (Flomax -) 0.4 mg PO DAILY@0830 [facility] Last Admin: 02/05/17 10:21 Dose: 0.4 mg - Objective Vital Signs: Vital Signs Temperature 97.9 F 02/05/17 06:00 Pulse Rate 89 02/05/17 09:00 Respiratory Rate 20 02/05/17 08:55 Blood Pressure 150/78 02/05/17 08:55 O2 Sat by Pulse Oximetry (%) 96 02/05/17 09:00 Constitutional: Yes: No Distress Eyes: Yes: Conjunctiva Clear Cardiovascular: Yes: Regular Rate and Rhythm, S1, S2 Respiratory: Yes: Other (+ crepitations R base) Gastrointestinal: Yes: Normal Bowel Sounds, Soft. No: Tenderness Edema: No Labs: CBC, BMP 02/05/17 06:15 02/05/17 06:15 Assessment/Plan Bilateral pneumonia Clinically and radiographically improved Recurrent fever- afebrile on steroids CLL PCN allergy Continue empiric zithromax/ cefepime
--- NOTE | 2017-02-05 13:09 | PN ---
Progress Note, Physician History of Present Illness: Pt seen and examined at bedside. He is awake and alert. He denies shortness of breath. - Current Medication List Current Medications: Active Medications Acetaminophen (Tylenol -) 650 mg PO Q6H PRN PRN Reason: FEVER OR PAIN Albuterol Sulfate (Ventolin 0.083% Nebulizer Soln -) 1 amp NEB QIDR [facility] Last Admin: 02/05/17 11:45 Dose: 1 amp Amlodipine Besylate (Norvasc -) 5 mg PO DAILY [facility] Last Admin: 02/05/17 10:22 Dose: 5 mg Aspirin (Asa -) 81 mg PO DAILY [facility] Last Admin: 02/05/17 10:21 Dose: 81 mg Atorvastatin Calcium (Lipitor -) 10 mg PO HS [facility] Last Admin: 02/04/17 22:35 Dose: 10 mg Cefepime HCl (Maxipime 2gm Ivpb (Pre-Docked)) 2 gm IVPB Q8H-IV [facility] PRN Reason: Protocol Last Admin: 02/05/17 12:06 Dose: 2 gm Enoxaparin Sodium (Lovenox -) 40 mg SQ DAILY [facility] Last Admin: 02/05/17 10:20 Dose: 40 mg Azithromycin (Zithromax 500mg Ivpb (Pre-Docked)) 250 mls @ 250 mls/hr IVPB DAILY [facility] Magnesium Oxide (Mag-Ox -) 400 mg PO BID [facility] Last Admin: 02/05/17 10:22 Dose: 400 mg Methylprednisolone Sodium Succinate (Solu-Medrol -) 40 mg IVPB Q8H-IV [facility] Last Admin: 02/05/17 10:21 Dose: 40 mg Metoprolol Succinate (Toprol Xl -) 50 mg PO DAILY [facility] Last Admin: 02/05/17 10:21 Dose: 50 mg Non-Formulary Medication (Ibrutinib [Imbruvica]) 0 mg PO DAILY@0700 [facility] Pantoprazole Sodium (Protonix -) 40 mg PO DAILY [facility] Last Admin: 02/05/17 10:22 Dose: 40 mg Potassium Phos/Sodium Phos (Phos-Nak Packet -) 1 packet PO TID [facility] Stop: 02/07/17 06:01 Quinapril HCl (Accupril -) 40 mg PO DAILY [facility] Last Admin: 02/05/17 10:20 Dose: 40 mg Tamsulosin HCl (Flomax -) 0.4 mg PO DAILY@0830 [facility] Last Admin: 02/05/17 10:21 Dose: 0.4 mg - Objective Vital Signs: Vital Signs Temperature 97.9 F 02/05/17 06:00 Pulse Rate 89 02/05/17 09:00 Respiratory Rate 20 02/05/17 08:55 Blood Pressure 150/78 02/05/17 08:55 O2 Sat by Pulse Oximetry (%) 96 02/05/17 09:00 Constitutional: Yes: Calm Eyes: Yes: Conjunctiva Clear HENT: Yes: Atraumatic Cardiovascular: Yes: S1, S2 Respiratory: Yes: CTA Bilaterally Gastrointestinal: Yes: Normal Bowel Sounds, Soft Genitourinary: Yes: WNL Musculoskeletal: Yes: WNL Edema: No Neurological: Yes: Oriented Psychiatric: Yes: Oriented Labs: CBC, BMP 02/05/17 06:15 02/05/17 06:15 Problem List - Problems (1) CLL (chronic lymphocytic leukemia) Code(s): C91.10 - CHRONIC LYMPHOCYTIC LEUK OF B-CELL TYPE NOT ACHIEVE REMIS (2) Hypercalcemia Code(s): E83.52 - HYPERCALCEMIA Assessment/Plan Current Medications Generic Name Dose Route Start Last Admin Trade Name Freq PRN Reason Stop Dose Admin Acetaminophen 650 mg 02/04/17 12:32 Tylenol - PO Q6H PRN FEVER OR PAIN Albuterol Sulfate 1 amp 02/04/17 18:00 02/05/17 11:45 Ventolin 0.083% Nebulizer Soln - NEB 1 amp QIDR [facility] Administration Amlodipine Besylate 5 mg 02/05/17 10:00 02/05/17 10:22 Norvasc - PO 5 mg DAILY [facility] Administration Aspirin 81 mg 02/05/17 10:00 02/05/17 10:21 Asa - PO 81 mg DAILY [facility] Administration Atorvastatin Calcium 10 mg 02/04/17 22:00 02/04/17 22:35 Lipitor - PO 10 mg HS [facility] Administration Cefepime HCl 2 gm 02/04/17 18:00 02/05/17 12:06 Maxipime 2gm Ivpb (Pre-Docked) IVPB 2 gm Q8H-IV [facility] Administration Protocol Enoxaparin Sodium 40 mg 02/05/17 10:00 02/05/17 10:20 Lovenox - SQ 40 mg DAILY [facility] Administration Azithromycin 250 mls @ 250 mls/hr 02/05/17 10:00 Zithromax 500mg Ivpb (Pre-Docked) IVPB DAILY [facility] Magnesium Oxide 400 mg 02/04/17 22:00 02/05/17 10:22 Mag-Ox - PO 400 mg BID [facility] Administration Methylprednisolone Sodium Succinate 40 mg 02/04/17 18:00 02/05/17 10:21 Solu-Medrol - IVPB 40 mg Q8H-IV [facility] Administration Metoprolol Succinate 50 mg 02/05/17 10:00 02/05/17 10:21 Toprol Xl - PO 50 mg DAILY [facility] Administration Non-Formulary Medication 0 mg 02/05/17 07:00 Ibrutinib [Imbruvica] PO DAILY@0700 [facility] Pantoprazole Sodium 40 mg 02/05/17 10:00 02/05/17 10:22 Protonix - PO 40 mg DAILY [facility] Administration Potassium Phos/Sodium Phos 1 packet 02/05/17 14:00 Phos-Nak Packet - PO 02/07/17 06:01 TID [facility] Quinapril HCl 40 mg 02/05/17 10:00 02/05/17 10:20 Accupril - PO 40 mg DAILY [facility] Administration Tamsulosin HCl 0.4 mg 02/05/17 08:30 02/05/17 10:21 Flomax - PO 0.4 mg DAILY@0830 [facility] Administration Laboratory Tests 01/31/17 06:30 PTH Intact 11 L Impression 1. Hypercalcemia 2. CAD 3. HTN 4. Chol 5. hx leukemia 6. non hodgkins lymphoma 7. CKD 8. hypokalemia Plan - monitor calcium - oncology follow up to evaluate for bisphosphonates - cont abx - PTH is low, appropriately Dr Hopper
[2017-02-05] MEDS: NAPH,MB-DB/K PH,MBDB POWDER PACKET PO SCH ×2 (13:29→21:51)
[2017-02-05] MEDS: AZITHROMYCIN IVPB 250 ML IVPB SCH (13:29)
[2017-02-05] MEDS: ATORVASTATIN CA 10 MG TABLET (FP) PO SCH (21:51)
[2017-02-06] MEDS ORDERED: PT OWN MED DRAWER 7, Y5N ONE ×4 (01:16→18:17)
[2017-02-06] MEDS: methylPREDNISolone NA SUCC 40 MG/1 ML VIAL IVPB SCH ×3 (01:49→21:27)
[2017-02-06] MEDS: CEFEPIME 2 GM/100 ML BAG PRE-DOCKED IVPB SCH ×3 (02:30→18:29)
[2017-02-06] MEDS: NAPH,MB-DB/K PH,MBDB POWDER PACKET PO SCH ×3 (05:51→21:27)
[2017-02-06] MEDS: ALBUTEROL SO4 0.083% IH SOL 2.5 MG/3 ML VIAL.NEB. NEB SCH ×4 (06:15→23:27)
[2017-02-06 08:34] LABS: MCHC 33.3 g/dl (32.0-35.9); MEAN CELL VOLUME 84.1 fl (80-96); MEAN PLT VOLUME 8.6 fl (7.5-11.1); PLATELET COUNT 191 K/MM3 (134-434); WHITE BLOOD COUNT 14.3 K/mm3 (4.0-10.0)
[2017-02-06 09:31] LABS: ANION GAP 10 (8-16); CALCIUM 9.1 mg/dL (8.5-10.1); CO2 29 mmol/L (21-32); CREATININE 1.1 mg/dL (0.7-1.3); GLUCOSE,RANDOM 284 mg/dL (74-106); MAGNESIUM 2.1 mg/dL (1.8-2.4); PHOSPHOROUS 2.9 mg/dL (2.5-4.9)
[2017-02-06] MEDS: MAGNESIUM OXIDE 400 MG TABLET (FP) PO SCH ×2 (09:55→21:28)
[2017-02-06] MEDS: ASPIRIN 81 MG CHEWABLE TABLETS PO SCH (09:55)
[2017-02-06] MEDS: TAMSULOSIN HCL 0.4 MG CAP.ER.24H (FP) PO SCH (09:55)
[2017-02-06] MEDS: METOPROLOL SUCCINATE 50 MG TAB.SR.24H (FP) PO SCH (09:55)
[2017-02-06] MEDS: PANTOPRAZOLE 40 MG TABLET (FP) PO SCH (09:56)
[2017-02-06] MEDS: amLODIPine BESYLATE 5 MG TABLET (FP) PO SCH (09:56)
[2017-02-06] MEDS: ENOXAPARIN NA (PORCINE) 40 MG/0.4 ML DISP.SYRIN SQ SCH (09:56)
[2017-02-06] MEDS: QUINAPRIL HCL 40 MG TABLET (FP) PO SCH (09:59)
--- NOTE | 2017-02-06 11:05 | PN ---
Progress Note, Physician Chief Complaint: Mr Saucedo says he is feeling better. Continues to say his breathing is improving. Was up with PT yesterday and said it went well. No cp or n/v. - Current Medication List Current Medications: Active Medications Acetaminophen (Tylenol -) 650 mg PO Q6H PRN PRN Reason: FEVER OR PAIN Albuterol Sulfate (Ventolin 0.083% Nebulizer Soln -) 1 amp NEB QIDR [facility] Last Admin: 02/06/17 06:15 Dose: 1 amp Amlodipine Besylate (Norvasc -) 5 mg PO DAILY [facility] Last Admin: 02/06/17 09:56 Dose: 5 mg Aspirin (Asa -) 81 mg PO DAILY [facility] Last Admin: 02/06/17 09:55 Dose: 81 mg Atorvastatin Calcium (Lipitor -) 10 mg PO HS [facility] Last Admin: 02/05/17 21:51 Dose: 10 mg Cefepime HCl (Maxipime 2gm Ivpb (Pre-Docked)) 2 gm IVPB Q8H-IV [facility] PRN Reason: Protocol Last Admin: 02/06/17 02:30 Dose: 2 gm Enoxaparin Sodium (Lovenox -) 40 mg SQ DAILY [facility] Last Admin: 02/06/17 09:56 Dose: 40 mg Azithromycin (Zithromax 500mg Ivpb (Pre-Docked)) 250 mls @ 250 mls/hr IVPB DAILY [facility] Last Admin: 02/05/17 13:29 Dose: 250 mls/hr Magnesium Oxide (Mag-Ox -) 400 mg PO BID [facility] Last Admin: 02/06/17 09:55 Dose: 400 mg Methylprednisolone Sodium Succinate (Solu-Medrol -) 40 mg IVPB Q8H-IV [facility] Last Admin: 02/06/17 09:56 Dose: 40 mg Metoprolol Succinate (Toprol Xl -) 50 mg PO DAILY [facility] Last Admin: 02/06/17 09:55 Dose: 50 mg Non-Formulary Medication (Ibrutinib [Imbruvica]) 0 mg PO DAILY@0700 [facility] Pantoprazole Sodium (Protonix -) 40 mg PO DAILY [facility] Last Admin: 02/06/17 09:56 Dose: 40 mg Potassium Phos/Sodium Phos (Phos-Nak Packet -) 1 packet PO TID [facility] Stop: 02/07/17 06:01 Last Admin: 02/06/17 05:51 Dose: 1 packet Quinapril HCl (Accupril -) 40 mg PO DAILY [facility] Last Admin: 02/06/17 09:59 Dose: 40 mg Tamsulosin HCl (Flomax -) 0.4 mg PO DAILY@0830 [facility] Last Admin: 02/06/17 09:55 Dose: 0.4 mg - Objective Vital Signs: Vital Signs Temperature 98.4 F 02/06/17 06:00 Pulse Rate 78 02/06/17 06:00 Respiratory Rate 16 02/06/17 06:00 Blood Pressure 137/73 02/06/17 06:00 O2 Sat by Pulse Oximetry (%) 97 02/05/17 22:00 Constitutional: Yes: Well Nourished, No Distress, Calm Cardiovascular: Yes: Regular Rate and Rhythm. No: Gallop, Murmur, Rub Respiratory: Yes: Regular, On Nasal O2, Rhonchi (bibasilar). No: CTA Bilaterally, Rales, Wheezes Gastrointestinal: Yes: Normal Bowel Sounds, Soft. No: Distention, Tenderness Extremities: Yes: WNL Edema: No Labs: CBC, BMP 02/06/17 08:05 02/06/17 08:05 Problem List - Problems (1) Acute respiratory failure Code(s): J96.00 - ACUTE RESPIRATORY FAILURE, UNSP W HYPOXIA OR HYPERCAPNIA (2) Pneumonia, community acquired Code(s): J18.9 - PNEUMONIA, UNSPECIFIED ORGANISM (3) CKD (chronic kidney disease) Code(s): N18.9 - CHRONIC KIDNEY DISEASE, UNSPECIFIED Qualifiers: Chronic kidney disease stage: stage 2 (mild) Qualified Code(s): N18.2 - Chronic kidney disease, stage 2 (mild) (4) CLL (chronic lymphocytic leukemia) Code(s): C91.10 - CHRONIC LYMPHOCYTIC LEUK OF B-CELL TYPE NOT ACHIEVE REMIS (5) CAD (coronary artery disease) Code(s): I25.10 - ATHSCL HEART DISEASE OF [place] CORONARY ARTERY W/O ANG PCTRS Qualifiers: Coronary Disease-Associated Artery/Lesion type: [place] artery [place] vs. transplanted heart: [place] heart Associated angina: without angina Qualified Code(s): I25.10 - Atherosclerotic heart disease of [place] coronary artery without angina pectoris (6) HLD (hyperlipidemia) Code(s): E78.5 - HYPERLIPIDEMIA, UNSPECIFIED Qualifiers: Hyperlipidemia type: pure hypercholesterolemia Qualified Code(s): E78.00 - Pure hypercholesterolemia, unspecified; E78.0 - Pure hypercholesterolemia (7) HTN (hypertension) Code(s): I10 - ESSENTIAL (PRIMARY) HYPERTENSION Qualifiers: Hypertension type: essential hypertension Qualified Code(s): I10 - Essential (primary) hypertension (8) Hypercalcemia Code(s): E83.52 - HYPERCALCEMIA (9) Hypophosphatemia Code(s): E83.39 - OTHER DISORDERS OF PHOSPHORUS METABOLISM Assessment/Plan (1) Acute respiratory failure -appreciate pulmonary assistance -patient feeling improved -continue ambulation and PT -continue incentive spirometer -wean oxygen as tolerated -steroids per pulmonary (2) Pneumonia, community acquired Assessment/Plan: -afebrile since 02/02 -ID following -continue cefepime and zithromax per ID recommendations Code(s): J18.9 - PNEUMONIA, UNSPECIFIED ORGANISM (3) CKD (chronic kidney disease) Assessment/Plan: -at baseline -monitor Code(s): N18.9 - CHRONIC KIDNEY DISEASE, UNSPECIFIED Qualifiers: Chronic kidney disease stage: stage 2 (mild) Qualified Code(s): N18.2 - Chronic kidney disease, stage 2 (mild) (4) CLL (chronic lymphocytic leukemia) Assessment/Plan: -holding home ibrutinib -oncology following Code(s): C91.10 - CHRONIC LYMPHOCYTIC LEUK OF B-CELL TYPE NOT ACHIEVE REMIS (5) CAD (coronary artery disease) Assessment/Plan: -quiescent, no chest pain -continue home regimen Code(s): I25.10 - ATHSCL HEART DISEASE OF [place] CORONARY ARTERY W/O ANG PCTRS (6) HLD (hyperlipidemia) Assessment/Plan: -continue statin Code(s): E78.5 - HYPERLIPIDEMIA, UNSPECIFIED (7) HTN (hypertension) Assessment/Plan: -controlled -continue norvasc, toprol xl, and quinapril Code(s): I10 - ESSENTIAL (PRIMARY) HYPERTENSION (8) Hypercalcemia -improved and stable -off IVF and lasix -monitor (9) Hypophosphatemia -neutraphos tid x 6 doses total -improved today, will finish replacement today
[2017-02-06] MEDS: AZITHROMYCIN IVPB 250 ML IVPB SCH (11:56)
--- NOTE | 2017-02-06 12:18 | PN ---
Progress Note (short form) - Note Progress Note: PULMONARY Breathing contiues to improve. +nonproductive cough. No fevers or chills. Last Vital Signs Temp Pulse Resp BP Pulse Ox 98.4 F 78 16 137/73 97 02/06/17 06:00 02/06/17 06:00 02/06/17 06:00 02/06/17 06:00 02/05/17 22:00 Gen: NAD at rest Heart: RRR Lung: scattered rhonchi Abd: soft, nontender Ext: no edema CBC, BMP 02/06/17 08:05 02/06/17 08:05 Active Medications Acetaminophen (Tylenol -) 650 mg PO Q6H PRN PRN Reason: FEVER OR PAIN Albuterol Sulfate (Ventolin 0.083% Nebulizer Soln -) 1 amp NEB QIDR [facility] Last Admin: 02/06/17 06:15 Dose: 1 amp Amlodipine Besylate (Norvasc -) 5 mg PO DAILY [facility] Last Admin: 02/06/17 09:56 Dose: 5 mg Aspirin (Asa -) 81 mg PO DAILY [facility] Last Admin: 02/06/17 09:55 Dose: 81 mg Atorvastatin Calcium (Lipitor -) 10 mg PO HS [facility] Last Admin: 02/05/17 21:51 Dose: 10 mg Cefepime HCl (Maxipime 2gm Ivpb (Pre-Docked)) 2 gm IVPB Q8H-IV [facility] PRN Reason: Protocol Last Admin: 02/06/17 02:30 Dose: 2 gm Enoxaparin Sodium (Lovenox -) 40 mg SQ DAILY [facility] Last Admin: 02/06/17 09:56 Dose: 40 mg Azithromycin (Zithromax 500mg Ivpb (Pre-Docked)) 250 mls @ 250 mls/hr IVPB DAILY [facility] Last Admin: 02/06/17 11:56 Dose: 250 mls/hr Magnesium Oxide (Mag-Ox -) 400 mg PO BID [facility] Last Admin: 02/06/17 09:55 Dose: 400 mg Methylprednisolone Sodium Succinate (Solu-Medrol -) 40 mg IVPB Q8H-IV [facility] Last Admin: 02/06/17 09:56 Dose: 40 mg Metoprolol Succinate (Toprol Xl -) 50 mg PO DAILY [facility] Last Admin: 02/06/17 09:55 Dose: 50 mg Non-Formulary Medication (Ibrutinib [Imbruvica]) 0 mg PO DAILY@0700 [facility] Pantoprazole Sodium (Protonix -) 40 mg PO DAILY [facility] Last Admin: 02/06/17 09:56 Dose: 40 mg Potassium Phos/Sodium Phos (Phos-Nak Packet -) 1 packet PO TID [facility] Stop: 02/07/17 06:01 Last Admin: 02/06/17 05:51 Dose: 1 packet Quinapril HCl (Accupril -) 40 mg PO DAILY [facility] Last Admin: 02/06/17 09:59 Dose: 40 mg Tamsulosin HCl (Flomax -) 0.4 mg PO DAILY@0830 [facility] Last Admin: 02/06/17 09:55 Dose: 0.4 mg A/P Acute Hypoxic Respiratory Failure improving Pneumonia h/o CLL CAD s/p CABG HTN Hypercholesterolemia CKD Lung Nodule - medrol taper, will change to q12h dosing - lasix as needed - antibiotics per ID - DVT prophylaxis - will need outpt f/u of chest imaging to ensure resolution of infiltrate and lung nodule Problem List - Problems (1) Pneumonia, community acquired Code(s): J18.9 - PNEUMONIA, UNSPECIFIED ORGANISM (2) CAD (coronary artery disease) Code(s): I25.10 - ATHSCL HEART DISEASE OF [place] CORONARY ARTERY W/O ANG PCTRS Qualifiers: Coronary Disease-Associated Artery/Lesion type: [place] artery [place] vs. transplanted heart: [place] heart Associated angina: without angina Qualified Code(s): I25.10 - Atherosclerotic heart disease of [place] coronary artery without angina pectoris (3) HLD (hyperlipidemia) Code(s): E78.5 - HYPERLIPIDEMIA, UNSPECIFIED Qualifiers: Hyperlipidemia type: pure hypercholesterolemia Qualified Code(s): E78.00 - Pure hypercholesterolemia, unspecified; E78.0 - Pure hypercholesterolemia (4) HTN (hypertension) Code(s): I10 - ESSENTIAL (PRIMARY) HYPERTENSION Qualifiers: Hypertension type: essential hypertension Qualified Code(s): I10 - Essential (primary) hypertension (5) CLL (chronic lymphocytic leukemia) Code(s): C91.10 - CHRONIC LYMPHOCYTIC LEUK OF B-CELL TYPE NOT ACHIEVE REMIS
[2017-02-06 12:40] LABS: METAMYELOCYTE 2 % (0-2)
[2017-02-06 12:44] LABS: PLATELET ESTIMATE ADEQUATE (NORMAL)
--- NOTE | 2017-02-06 12:47 | PN ---
Progress Note, Physician History of Present Illness: Dyspnea improving, denies cough or chest pain. - Current Medication List Current Medications: Active Medications Acetaminophen (Tylenol -) 650 mg PO Q6H PRN PRN Reason: FEVER OR PAIN Albuterol Sulfate (Ventolin 0.083% Nebulizer Soln -) 1 amp NEB QIDR [facility] Last Admin: 02/06/17 11:47 Dose: 1 amp Amlodipine Besylate (Norvasc -) 5 mg PO DAILY [facility] Last Admin: 02/06/17 09:56 Dose: 5 mg Aspirin (Asa -) 81 mg PO DAILY [facility] Last Admin: 02/06/17 09:55 Dose: 81 mg Atorvastatin Calcium (Lipitor -) 10 mg PO HS [facility] Last Admin: 02/05/17 21:51 Dose: 10 mg Cefepime HCl (Maxipime 2gm Ivpb (Pre-Docked)) 2 gm IVPB Q8H-IV [facility] PRN Reason: Protocol Last Admin: 02/06/17 02:30 Dose: 2 gm Enoxaparin Sodium (Lovenox -) 40 mg SQ DAILY [facility] Last Admin: 02/06/17 09:56 Dose: 40 mg Azithromycin (Zithromax 500mg Ivpb (Pre-Docked)) 250 mls @ 250 mls/hr IVPB DAILY [facility] Last Admin: 02/06/17 11:56 Dose: 250 mls/hr Magnesium Oxide (Mag-Ox -) 400 mg PO BID [facility] Last Admin: 02/06/17 09:55 Dose: 400 mg Methylprednisolone Sodium Succinate (Solu-Medrol -) 40 mg IVPB Q12H [facility] Metoprolol Succinate (Toprol Xl -) 50 mg PO DAILY [facility] Last Admin: 02/06/17 09:55 Dose: 50 mg Non-Formulary Medication (Ibrutinib [Imbruvica]) 0 mg PO DAILY@0700 [facility] Pantoprazole Sodium (Protonix -) 40 mg PO DAILY [facility] Last Admin: 02/06/17 09:56 Dose: 40 mg Potassium Phos/Sodium Phos (Phos-Nak Packet -) 1 packet PO TID [facility] Stop: 02/07/17 06:01 Last Admin: 02/06/17 05:51 Dose: 1 packet Quinapril HCl (Accupril -) 40 mg PO DAILY [facility] Last Admin: 02/06/17 09:59 Dose: 40 mg Tamsulosin HCl (Flomax -) 0.4 mg PO DAILY@0830 [facility] Last Admin: 02/06/17 09:55 Dose: 0.4 mg - Objective Vital Signs: Vital Signs Temperature 98 F 02/06/17 12:40 Pulse Rate 89 02/06/17 12:40 Respiratory Rate 18 02/06/17 12:40 Blood Pressure 131/74 02/06/17 12:40 O2 Sat by Pulse Oximetry (%) 97 02/05/17 22:00 Constitutional: Yes: No Distress, Calm Neck: Yes: Supple Cardiovascular: Yes: Regular Rate and Rhythm Respiratory: Yes: Regular, CTA Bilaterally Gastrointestinal: Yes: Normal Bowel Sounds, Soft Edema: No Labs: CBC, BMP 02/06/17 08:05 02/06/17 08:05 Problem List - Problems (1) Acute respiratory failure Code(s): J96.00 - ACUTE RESPIRATORY FAILURE, UNSP W HYPOXIA OR HYPERCAPNIA (2) Ascending aortic aneurysm Code(s): I71.2 - THORACIC AORTIC ANEURYSM, WITHOUT RUPTURE (3) CKD (chronic kidney disease) Code(s): N18.9 - CHRONIC KIDNEY DISEASE, UNSPECIFIED Qualifiers: Chronic kidney disease stage: stage 2 (mild) Qualified Code(s): N18.2 - Chronic kidney disease, stage 2 (mild) (4) CLL (chronic lymphocytic leukemia) Code(s): C91.10 - CHRONIC LYMPHOCYTIC LEUK OF B-CELL TYPE NOT ACHIEVE REMIS (5) Hx of CABG Code(s): Z95.1 - PRESENCE OF AORTOCORONARY BYPASS GRAFT (6) Pneumonia, community acquired Code(s): J18.9 - PNEUMONIA, UNSPECIFIED ORGANISM (7) CAD (coronary artery disease) Code(s): I25.10 - ATHSCL HEART DISEASE OF [place] CORONARY ARTERY W/O ANG PCTRS Qualifiers: Coronary Disease-Associated Artery/Lesion type: [place] artery [place] vs. transplanted heart: [place] heart Associated angina: without angina Qualified Code(s): I25.10 - Atherosclerotic heart disease of [place] coronary artery without angina pectoris (8) HLD (hyperlipidemia) Code(s): E78.5 - HYPERLIPIDEMIA, UNSPECIFIED Qualifiers: Hyperlipidemia type: pure hypercholesterolemia Qualified Code(s): E78.00 - Pure hypercholesterolemia, unspecified; E78.0 - Pure hypercholesterolemia (9) HTN (hypertension) Code(s): I10 - ESSENTIAL (PRIMARY) HYPERTENSION Qualifiers: Hypertension type: essential hypertension Qualified Code(s): I10 - Essential (primary) hypertension Assessment/Plan 1. Acute respiratory failure due to community acquired pneumonia 2. Coronary artery disease status post CABG, angina pectoris 3. Hypertension 4. Hypercholesterolemia 5. Ascending aortic aneurysm 6. CLL 7. Hypokalemia and hypercalcemia 8. Anemia 9. CKD 10. Lung nodule PLAN: 1. Continue antibiotic coverage, IV steroid taper, O2 and nebulizer treatment 2. Continue Metoprolol ER 50 qd, Amlodipine 5 qd and Accupril 40 qd 3. Continue Atorvastatin 10 qhs (previously was on Vytorin) 4. Continue ASA 81 qd 5. Continue Imbruvica for CLL 6. Ascending aortic aneurysm can be followed as outpatient 7. K supplement and monitor electrolytes 8. DVT and GI prophylaxis 9. Will need outpt f/u of chest imaging to ensure resolution of infiltrate and lung nodule
--- NOTE | 2017-02-06 16:27 | PN ---
Progress Note, Physician History of Present Illness: Pt seen and examined at bedside. He is awake and alert. He denies shortness of breath. - Current Medication List Current Medications: Active Medications Acetaminophen (Tylenol -) 650 mg PO Q6H PRN PRN Reason: FEVER OR PAIN Albuterol Sulfate (Ventolin 0.083% Nebulizer Soln -) 1 amp NEB QIDR [facility] Last Admin: 02/06/17 11:47 Dose: 1 amp Amlodipine Besylate (Norvasc -) 5 mg PO DAILY [facility] Last Admin: 02/06/17 09:56 Dose: 5 mg Aspirin (Asa -) 81 mg PO DAILY [facility] Last Admin: 02/06/17 09:55 Dose: 81 mg Atorvastatin Calcium (Lipitor -) 10 mg PO HS [facility] Last Admin: 02/05/17 21:51 Dose: 10 mg Cefepime HCl (Maxipime 2gm Ivpb (Pre-Docked)) 2 gm IVPB Q8H-IV [facility] PRN Reason: Protocol Last Admin: 02/06/17 12:58 Dose: 2 gm Enoxaparin Sodium (Lovenox -) 40 mg SQ DAILY [facility] Last Admin: 02/06/17 09:56 Dose: 40 mg Azithromycin (Zithromax 500mg Ivpb (Pre-Docked)) 250 mls @ 250 mls/hr IVPB DAILY [facility] Last Admin: 02/06/17 11:56 Dose: 250 mls/hr Magnesium Oxide (Mag-Ox -) 400 mg PO BID [facility] Last Admin: 02/06/17 09:55 Dose: 400 mg Methylprednisolone Sodium Succinate (Solu-Medrol -) 40 mg IVPB Q12H [facility] Metoprolol Succinate (Toprol Xl -) 50 mg PO DAILY [facility] Last Admin: 02/06/17 09:55 Dose: 50 mg Non-Formulary Medication (Ibrutinib [Imbruvica]) 0 mg PO DAILY@0700 [facility] Pantoprazole Sodium (Protonix -) 40 mg PO DAILY [facility] Last Admin: 02/06/17 09:56 Dose: 40 mg Potassium Phos/Sodium Phos (Phos-Nak Packet -) 1 packet PO TID [facility] Stop: 02/07/17 06:01 Last Admin: 02/06/17 13:38 Dose: 1 packet Quinapril HCl (Accupril -) 40 mg PO DAILY [facility] Last Admin: 02/06/17 09:59 Dose: 40 mg Tamsulosin HCl (Flomax -) 0.4 mg PO DAILY@0830 [facility] Last Admin: 02/06/17 09:55 Dose: 0.4 mg - Objective Vital Signs: Vital Signs Temperature 98.1 F 02/06/17 14:53 Pulse Rate 82 02/06/17 14:53 Respiratory Rate 20 02/06/17 14:53 Blood Pressure 109/58 02/06/17 14:53 O2 Sat by Pulse Oximetry (%) 97 02/05/17 22:00 Constitutional: Yes: Calm Eyes: Yes: Conjunctiva Clear HENT: Yes: Atraumatic Neck: Yes: Supple Cardiovascular: Yes: S1, S2 Respiratory: Yes: Wheezes Gastrointestinal: Yes: Soft Genitourinary: Yes: WNL Musculoskeletal: Yes: WNL Edema: No Neurological: Yes: Oriented Psychiatric: Yes: Oriented Labs: CBC, BMP 02/06/17 08:05 02/06/17 08:05 Problem List - Problems (1) CLL (chronic lymphocytic leukemia) Code(s): C91.10 - CHRONIC LYMPHOCYTIC LEUK OF B-CELL TYPE NOT ACHIEVE REMIS (2) Hypercalcemia Code(s): E83.52 - HYPERCALCEMIA Assessment/Plan Current Medications Generic Name Dose Route Start Last Admin Trade Name Freq PRN Reason Stop Dose Admin Acetaminophen 650 mg 02/04/17 12:32 Tylenol - PO Q6H PRN FEVER OR PAIN Albuterol Sulfate 1 amp 02/04/17 18:00 02/06/17 11:47 Ventolin 0.083% Nebulizer Soln - NEB 1 amp QIDR [facility] Administration Amlodipine Besylate 5 mg 02/05/17 10:00 02/06/17 09:56 Norvasc - PO 5 mg DAILY [facility] Administration Aspirin 81 mg 02/05/17 10:00 02/06/17 09:55 Asa - PO 81 mg DAILY [facility] Administration Atorvastatin Calcium 10 mg 02/04/17 22:00 02/05/17 21:51 Lipitor - PO 10 mg HS [facility] Administration Cefepime HCl 2 gm 02/04/17 18:00 02/06/17 12:58 Maxipime 2gm Ivpb (Pre-Docked) IVPB 2 gm Q8H-IV [facility] Administration Protocol Enoxaparin Sodium 40 mg 02/05/17 10:00 02/06/17 09:56 Lovenox - SQ 40 mg DAILY [facility] Administration Azithromycin 250 mls @ 250 mls/hr 02/05/17 10:00 02/06/17 11:56 Zithromax 500mg Ivpb (Pre-Docked) IVPB 250 mls/hr DAILY [facility] Administration Magnesium Oxide 400 mg 02/04/17 22:00 02/06/17 09:55 Mag-Ox - PO 400 mg BID [facility] Administration Methylprednisolone Sodium Succinate 40 mg 02/06/17 22:00 Solu-Medrol - IVPB Q12H [facility] Metoprolol Succinate 50 mg 02/05/17 10:00 02/06/17 09:55 Toprol Xl - PO 50 mg DAILY [facility] Administration Non-Formulary Medication 0 mg 02/05/17 07:00 Ibrutinib [Imbruvica] PO DAILY@0700 [facility] Pantoprazole Sodium 40 mg 02/05/17 10:00 02/06/17 09:56 Protonix - PO 40 mg DAILY [facility] Administration Potassium Phos/Sodium Phos 1 packet 02/05/17 14:00 02/06/17 13:38 Phos-Nak Packet - PO 02/07/17 06:01 1 packet TID [facility] Administration Quinapril HCl 40 mg 02/05/17 10:00 02/06/17 09:59 Accupril - PO 40 mg DAILY [facility] Administration Tamsulosin HCl 0.4 mg 02/05/17 08:30 02/06/17 09:55 Flomax - PO 0.4 mg DAILY@0830 [facility] Administration Impression 1. Hypercalcemia 2. CAD 3. HTN 4. Chol 5. hx leukemia 6. non hodgkins lymphoma 7. CKD 8. hypokalemia Plan - renal function is stable - calcium level is stable or now - pt will follow with onclogy - cont current management - will follow PRN Dr Hopper
--- NOTE | 2017-02-06 16:39 | PN ---
Progress Note, Physician Chief Complaint: Awake and alert No complaints Denies chest pain/ dyspnea/ cough Afebrile on steroids Appears very comfortable seated in bed on room air - Current Medication List Current Medications: Active Medications Acetaminophen (Tylenol -) 650 mg PO Q6H PRN PRN Reason: FEVER OR PAIN Albuterol Sulfate (Ventolin 0.083% Nebulizer Soln -) 1 amp NEB QIDR [facility] Last Admin: 02/06/17 11:47 Dose: 1 amp Amlodipine Besylate (Norvasc -) 5 mg PO DAILY [facility] Last Admin: 02/06/17 09:56 Dose: 5 mg Aspirin (Asa -) 81 mg PO DAILY [facility] Last Admin: 02/06/17 09:55 Dose: 81 mg Atorvastatin Calcium (Lipitor -) 10 mg PO HS [facility] Last Admin: 02/05/17 21:51 Dose: 10 mg Cefepime HCl (Maxipime 2gm Ivpb (Pre-Docked)) 2 gm IVPB Q8H-IV [facility] PRN Reason: Protocol Last Admin: 02/06/17 12:58 Dose: 2 gm Enoxaparin Sodium (Lovenox -) 40 mg SQ DAILY [facility] Last Admin: 02/06/17 09:56 Dose: 40 mg Azithromycin (Zithromax 500mg Ivpb (Pre-Docked)) 250 mls @ 250 mls/hr IVPB DAILY [facility] Last Admin: 02/06/17 11:56 Dose: 250 mls/hr Magnesium Oxide (Mag-Ox -) 400 mg PO BID [facility] Last Admin: 02/06/17 09:55 Dose: 400 mg Methylprednisolone Sodium Succinate (Solu-Medrol -) 40 mg IVPB Q12H [facility] Metoprolol Succinate (Toprol Xl -) 50 mg PO DAILY [facility] Last Admin: 02/06/17 09:55 Dose: 50 mg Non-Formulary Medication (Ibrutinib [Imbruvica]) 0 mg PO DAILY@0700 [facility] Pantoprazole Sodium (Protonix -) 40 mg PO DAILY [facility] Last Admin: 02/06/17 09:56 Dose: 40 mg Potassium Phos/Sodium Phos (Phos-Nak Packet -) 1 packet PO TID [facility] Stop: 02/07/17 06:01 Last Admin: 02/06/17 13:38 Dose: 1 packet Quinapril HCl (Accupril -) 40 mg PO DAILY [facility] Last Admin: 02/06/17 09:59 Dose: 40 mg Tamsulosin HCl (Flomax -) 0.4 mg PO DAILY@0830 [facility] Last Admin: 02/06/17 09:55 Dose: 0.4 mg - Objective Vital Signs: Vital Signs Temperature 98.1 F 02/06/17 14:53 Pulse Rate 82 02/06/17 14:53 Respiratory Rate 20 02/06/17 14:53 Blood Pressure 109/58 02/06/17 14:53 O2 Sat by Pulse Oximetry (%) 97 02/05/17 22:00 Constitutional: Yes: No Distress Eyes: Yes: Conjunctiva Clear Cardiovascular: Yes: Regular Rate and Rhythm, S1, S2 Respiratory: Yes: Other (+ bilateral crepitations) Gastrointestinal: Yes: Normal Bowel Sounds, Soft. No: Tenderness Edema: Yes Labs: CBC, BMP 02/06/17 08:05 02/06/17 08:05 Assessment/Plan Bilateral pneumonia Clinically and radiographically improved Recurrent fever- afebrile on steroids CLL PCN allergy Continue empiric zithromax/ cefepime
[2017-02-06] MEDS: CEFEPIME 2 GM in DEXTROSE 5%-WATER - 100 ML IVPB SCH (19:46)
[2017-02-06] MEDS: ATORVASTATIN CA 10 MG TABLET (FP) PO SCH (21:28)
--- NOTE | 2017-02-06 21:54 | PN ---
Progress Note (short form) - Note Progress Note: pt seen 944 has no complaint. Notes respirations improved. Dry cough Wants to ambulate more PE NAD lungs - b/b rhonchi CVS-reg S1S2 abd- soft, NT ext-no edema Imp - pna, bkd transformed [facility] improving on abx HyperCa++ - improved ( on steroids); does not need bisphosphonate now Resume outpt dosing of ibrutinib 420 mg daily
[2017-02-07] MEDS: CEFEPIME 2 GM in DEXTROSE 5%-WATER - 100 ML IVPB SCH ×3 (02:15→18:19)
[2017-02-07] MEDS: ALBUTEROL SO4 0.083% IH SOL 2.5 MG/3 ML VIAL.NEB. NEB SCH ×4 (06:25→23:04)
[2017-02-07] MEDS: NAPH,MB-DB/K PH,MBDB POWDER PACKET PO SCH (06:48)
[2017-02-07] MEDS: IBRUTINIB PO SCH (06:51)
[2017-02-07 07:22] LABS: ANION GAP 8 (8-16); CALCIUM 8.9 mg/dL (8.5-10.1); CO2 31 mmol/L (21-32); CREATININE 1.2 mg/dL (0.7-1.3); GLUCOSE,RANDOM 261 mg/dL (74-106); MAGNESIUM 2.1 mg/dL (1.8-2.4); PHOSPHOROUS 2.5 mg/dL (2.5-4.9)
[2017-02-07 07:25] LABS: MCH 28.1 pg (25.7-33.7); MCHC 33.5 g/dl (32.0-35.9); MEAN CELL VOLUME 83.9 fl (80-96); MEAN PLT VOLUME 8.7 fl (7.5-11.1); PLATELET COUNT 178 K/MM3 (134-434); RDW 16.4 % (11.9-15.9); WHITE BLOOD COUNT 14.6 K/mm3 (4.0-10.0)
[2017-02-07 09:17] LABS: PLATELET ESTIMATE ADEQUATE (NORMAL)
[2017-02-07] MEDS: AZITHROMYCIN IVPB 250 ML IVPB SCH (09:45)
[2017-02-07] MEDS: ENOXAPARIN NA (PORCINE) 40 MG/0.4 ML DISP.SYRIN SQ SCH (09:45)
[2017-02-07] MEDS: METOPROLOL SUCCINATE 50 MG TAB.SR.24H (FP) PO SCH (09:45)
[2017-02-07] MEDS: QUINAPRIL HCL 40 MG TABLET (FP) PO SCH (09:45)
[2017-02-07] MEDS: amLODIPine BESYLATE 5 MG TABLET (FP) PO SCH (09:45)
[2017-02-07] MEDS: methylPREDNISolone NA SUCC 40 MG/1 ML VIAL IVPB SCH ×2 (09:45→21:21)
[2017-02-07] MEDS: ASPIRIN 81 MG CHEWABLE TABLETS PO SCH (09:45)
[2017-02-07] MEDS: PANTOPRAZOLE 40 MG TABLET (FP) PO SCH (09:45)
[2017-02-07] MEDS: TAMSULOSIN HCL 0.4 MG CAP.ER.24H (FP) PO SCH (09:45)
[2017-02-07] MEDS: MAGNESIUM OXIDE 400 MG TABLET (FP) PO SCH ×2 (09:45→21:20)
--- NOTE | 2017-02-07 10:40 | PN ---
Progress Note, Physician History of Present Illness: Dyspnea improving, denies cough or chest pain. - Current Medication List Current Medications: Active Medications Acetaminophen (Tylenol -) 650 mg PO Q6H PRN PRN Reason: FEVER OR PAIN Albuterol Sulfate (Ventolin 0.083% Nebulizer Soln -) 1 amp NEB QIDR [facility] Last Admin: 02/07/17 06:25 Dose: 1 amp Amlodipine Besylate (Norvasc -) 5 mg PO DAILY [facility] Last Admin: 02/07/17 09:45 Dose: 5 mg Aspirin (Asa -) 81 mg PO DAILY [facility] Last Admin: 02/07/17 09:45 Dose: 81 mg Atorvastatin Calcium (Lipitor -) 10 mg PO HS [facility] Last Admin: 02/06/17 21:28 Dose: 10 mg Enoxaparin Sodium (Lovenox -) 40 mg SQ DAILY [facility] Last Admin: 02/07/17 09:45 Dose: 40 mg Azithromycin (Zithromax 500mg Ivpb (Pre-Docked)) 250 mls @ 250 mls/hr IVPB DAILY [facility] Last Admin: 02/07/17 09:45 Dose: 250 mls/hr Cefepime HCl 2 gm/ Dextrose 100 mls @ 200 mls/hr IVPB Q8H-IV [facility] Last Admin: 02/07/17 09:45 Dose: 200 mls/hr Magnesium Oxide (Mag-Ox -) 400 mg PO BID [facility] Last Admin: 02/07/17 09:45 Dose: 400 mg Methylprednisolone Sodium Succinate (Solu-Medrol -) 40 mg IVPB Q12H [facility] Last Admin: 02/07/17 09:45 Dose: 40 mg Metoprolol Succinate (Toprol Xl -) 50 mg PO DAILY [facility] Last Admin: 02/07/17 09:45 Dose: 50 mg Non-Formulary Medication (Ibrutinib [Imbruvica]) 0 mg PO DAILY@0700 [facility] Last Admin: 02/07/17 06:51 Dose: 420 mg Pantoprazole Sodium (Protonix -) 40 mg PO DAILY [facility] Last Admin: 02/07/17 09:45 Dose: 40 mg Quinapril HCl (Accupril -) 40 mg PO DAILY [facility] Last Admin: 02/07/17 09:45 Dose: 40 mg Tamsulosin HCl (Flomax -) 0.4 mg PO DAILY@0830 [facility] Last Admin: 02/07/17 09:45 Dose: 0.4 mg - Objective Vital Signs: Vital Signs Temperature 98.3 F 02/07/17 09:00 Pulse Rate 92 H 02/07/17 09:00 Respiratory Rate 18 02/07/17 09:00 Blood Pressure 153/82 02/07/17 09:00 O2 Sat by Pulse Oximetry (%) 93 L 02/06/17 22:00 Constitutional: Yes: No Distress, Calm Neck: Yes: Supple Cardiovascular: Yes: Regular Rate and Rhythm Respiratory: Yes: Regular, CTA Bilaterally Gastrointestinal: Yes: Normal Bowel Sounds, Soft Edema: No Labs: CBC, BMP 02/07/17 05:40 02/07/17 05:40 Problem List - Problems (1) Acute respiratory failure Code(s): J96.00 - ACUTE RESPIRATORY FAILURE, UNSP W HYPOXIA OR HYPERCAPNIA (2) Ascending aortic aneurysm Code(s): I71.2 - THORACIC AORTIC ANEURYSM, WITHOUT RUPTURE (3) CKD (chronic kidney disease) Code(s): N18.9 - CHRONIC KIDNEY DISEASE, UNSPECIFIED Qualifiers: Chronic kidney disease stage: stage 2 (mild) Qualified Code(s): N18.2 - Chronic kidney disease, stage 2 (mild) (4) CLL (chronic lymphocytic leukemia) Code(s): C91.10 - CHRONIC LYMPHOCYTIC LEUK OF B-CELL TYPE NOT ACHIEVE REMIS (5) Hx of CABG Code(s): Z95.1 - PRESENCE OF AORTOCORONARY BYPASS GRAFT (6) Pneumonia, community acquired Code(s): J18.9 - PNEUMONIA, UNSPECIFIED ORGANISM (7) CAD (coronary artery disease) Code(s): I25.10 - ATHSCL HEART DISEASE OF [place] CORONARY ARTERY W/O ANG PCTRS Qualifiers: Coronary Disease-Associated Artery/Lesion type: [place] artery [place] vs. transplanted heart: [place] heart Associated angina: without angina Qualified Code(s): I25.10 - Atherosclerotic heart disease of [place] coronary artery without angina pectoris (8) HLD (hyperlipidemia) Code(s): E78.5 - HYPERLIPIDEMIA, UNSPECIFIED Qualifiers: Hyperlipidemia type: pure hypercholesterolemia Qualified Code(s): E78.00 - Pure hypercholesterolemia, unspecified; E78.0 - Pure hypercholesterolemia (9) HTN (hypertension) Code(s): I10 - ESSENTIAL (PRIMARY) HYPERTENSION Qualifiers: Hypertension type: essential hypertension Qualified Code(s): I10 - Essential (primary) hypertension Assessment/Plan 02/03/2017 Normal biventricular size and fxn, mild [place], mild [place] 1. Acute respiratory failure due to community acquired pneumonia 2. Coronary artery disease status post CABG, angina pectoris 3. Hypertension 4. Hypercholesterolemia 5. Ascending aortic aneurysm 6. CLL 7. Hypokalemia and hypercalcemia resolved 8. Anemia 9. CKD 10. Lung nodule PLAN: 1. Continue empiric antibiotic coverage, IV steroid taper, O2 and nebulizer treatment 2. Continue Metoprolol ER 50 qd, Amlodipine 5 qd and Accupril 40 qd 3. Continue Atorvastatin 10 qhs (previously was on Vytorin) 4. Continue ASA 81 qd 5. Continue Imbruvica for CLL 6. Ascending aortic aneurysm can be followed as outpatient 7. K supplement and monitor electrolytes 8. DVT and GI prophylaxis 9. Will need outpt f/u of chest imaging to ensure resolution of infiltrate and lung nodule
--- NOTE | 2017-02-07 12:06 | PN ---
Progress Note, Physician Chief Complaint: Mr Saucedo says he is feeling better. Says he is no longer short of breath. No cp or n/v. - Current Medication List Current Medications: Active Medications Acetaminophen (Tylenol -) 650 mg PO Q6H PRN PRN Reason: FEVER OR PAIN Albuterol Sulfate (Ventolin 0.083% Nebulizer Soln -) 1 amp NEB QIDR [facility] Last Admin: 02/07/17 06:25 Dose: 1 amp Amlodipine Besylate (Norvasc -) 5 mg PO DAILY [facility] Last Admin: 02/07/17 09:45 Dose: 5 mg Aspirin (Asa -) 81 mg PO DAILY [facility] Last Admin: 02/07/17 09:45 Dose: 81 mg Atorvastatin Calcium (Lipitor -) 10 mg PO HS [facility] Last Admin: 02/06/17 21:28 Dose: 10 mg Enoxaparin Sodium (Lovenox -) 40 mg SQ DAILY [facility] Last Admin: 02/07/17 09:45 Dose: 40 mg Azithromycin (Zithromax 500mg Ivpb (Pre-Docked)) 250 mls @ 250 mls/hr IVPB DAILY [facility] Last Admin: 02/07/17 09:45 Dose: 250 mls/hr Cefepime HCl 2 gm/ Dextrose 100 mls @ 200 mls/hr IVPB Q8H-IV [facility] Last Admin: 02/07/17 09:45 Dose: 200 mls/hr Magnesium Oxide (Mag-Ox -) 400 mg PO BID [facility] Last Admin: 02/07/17 09:45 Dose: 400 mg Methylprednisolone Sodium Succinate (Solu-Medrol -) 40 mg IVPB Q12H [facility] Last Admin: 02/07/17 09:45 Dose: 40 mg Metoprolol Succinate (Toprol Xl -) 50 mg PO DAILY [facility] Last Admin: 02/07/17 09:45 Dose: 50 mg Non-Formulary Medication (Ibrutinib [Imbruvica]) 0 mg PO DAILY@0700 [facility] Last Admin: 02/07/17 06:51 Dose: 420 mg Pantoprazole Sodium (Protonix -) 40 mg PO DAILY [facility] Last Admin: 02/07/17 09:45 Dose: 40 mg Quinapril HCl (Accupril -) 40 mg PO DAILY [facility] Last Admin: 02/07/17 09:45 Dose: 40 mg Tamsulosin HCl (Flomax -) 0.4 mg PO DAILY@0830 [facility] Last Admin: 02/07/17 09:45 Dose: 0.4 mg - Objective Vital Signs: Vital Signs Temperature 98.3 F 02/07/17 09:00 Pulse Rate 92 H 02/07/17 09:00 Respiratory Rate 18 02/07/17 09:00 Blood Pressure 153/82 02/07/17 09:00 O2 Sat by Pulse Oximetry (%) 93 L 02/06/17 22:00 Constitutional: Yes: Well Nourished, No Distress, Calm Cardiovascular: Yes: Regular Rate and Rhythm. No: Gallop, Murmur, Rub Respiratory: Yes: Regular, On Nasal O2, Rhonchi (bibasilar, minimal). No: Rales , Wheezes Gastrointestinal: Yes: Normal Bowel Sounds, Soft. No: Distention, Tenderness Extremities: Yes: WNL Edema: No Labs: CBC, BMP 02/07/17 05:40 02/07/17 05:40 Problem List - Problems (1) Acute respiratory failure Code(s): J96.00 - ACUTE RESPIRATORY FAILURE, UNSP W HYPOXIA OR HYPERCAPNIA (2) Pneumonia, community acquired Code(s): J18.9 - PNEUMONIA, UNSPECIFIED ORGANISM (3) CKD (chronic kidney disease) Code(s): N18.9 - CHRONIC KIDNEY DISEASE, UNSPECIFIED Qualifiers: Chronic kidney disease stage: stage 2 (mild) Qualified Code(s): N18.2 - Chronic kidney disease, stage 2 (mild) (4) CLL (chronic lymphocytic leukemia) Code(s): C91.10 - CHRONIC LYMPHOCYTIC LEUK OF B-CELL TYPE NOT ACHIEVE REMIS (5) CAD (coronary artery disease) Code(s): I25.10 - ATHSCL HEART DISEASE OF [place] CORONARY ARTERY W/O ANG PCTRS Qualifiers: Coronary Disease-Associated Artery/Lesion type: [place] artery [place] vs. transplanted heart: [place] heart Associated angina: without angina Qualified Code(s): I25.10 - Atherosclerotic heart disease of [place] coronary artery without angina pectoris (6) HLD (hyperlipidemia) Code(s): E78.5 - HYPERLIPIDEMIA, UNSPECIFIED Qualifiers: Hyperlipidemia type: pure hypercholesterolemia Qualified Code(s): E78.00 - Pure hypercholesterolemia, unspecified; E78.0 - Pure hypercholesterolemia (7) HTN (hypertension) Code(s): I10 - ESSENTIAL (PRIMARY) HYPERTENSION Qualifiers: Hypertension type: essential hypertension Qualified Code(s): I10 - Essential (primary) hypertension (8) Hypercalcemia Code(s): E83.52 - HYPERCALCEMIA (9) Hypophosphatemia Code(s): E83.39 - OTHER DISORDERS OF PHOSPHORUS METABOLISM Assessment/Plan (1) Acute respiratory failure -case d/w pulmonary -tapering down steroids -repeat chest x-ray today -pre and post to see if can wean off oxygen (2) Pneumonia, community acquired Assessment/Plan: -afebrile since 02/02 -ID following and case discussed -ID to evaluate transition to oral meds Code(s): J18.9 - PNEUMONIA, UNSPECIFIED ORGANISM (3) CKD (chronic kidney disease) Assessment/Plan: -at baseline -monitor Code(s): N18.9 - CHRONIC KIDNEY DISEASE, UNSPECIFIED Qualifiers: Chronic kidney disease stage: stage 2 (mild) Qualified Code(s): N18.2 - Chronic kidney disease, stage 2 (mild) (4) CLL (chronic lymphocytic leukemia) Assessment/Plan: -holding home ibrutinib -oncology following Code(s): C91.10 - CHRONIC LYMPHOCYTIC LEUK OF B-CELL TYPE NOT ACHIEVE REMIS (5) CAD (coronary artery disease) Assessment/Plan: -quiescent, no chest pain -continue home regimen Code(s): I25.10 - ATHSCL HEART DISEASE OF [place] CORONARY ARTERY W/O ANG PCTRS (6) HLD (hyperlipidemia) Assessment/Plan: -continue statin Code(s): E78.5 - HYPERLIPIDEMIA, UNSPECIFIED (7) HTN (hypertension) Assessment/Plan: -controlled -continue norvasc, toprol xl, and quinapril Code(s): I10 - ESSENTIAL (PRIMARY) HYPERTENSION (8) Hypercalcemia -improved and stable -off IVF and lasix -monitor (9) Hypophosphatemia -finished replacement
--- NOTE | 2017-02-07 12:11 | PN ---
Progress Note, Physician History of Present Illness: PULMONARY ALERT,OOB-CHAIR,FEELING BETTER - Current Medication List Current Medications: Active Medications Acetaminophen (Tylenol -) 650 mg PO Q6H PRN PRN Reason: FEVER OR PAIN Albuterol Sulfate (Ventolin 0.083% Nebulizer Soln -) 1 amp NEB QIDR [facility] Last Admin: 02/07/17 12:06 Dose: 1 amp Amlodipine Besylate (Norvasc -) 5 mg PO DAILY [facility] Last Admin: 02/07/17 09:45 Dose: 5 mg Aspirin (Asa -) 81 mg PO DAILY [facility] Last Admin: 02/07/17 09:45 Dose: 81 mg Atorvastatin Calcium (Lipitor -) 10 mg PO HS [facility] Last Admin: 02/06/17 21:28 Dose: 10 mg Enoxaparin Sodium (Lovenox -) 40 mg SQ DAILY [facility] Last Admin: 02/07/17 09:45 Dose: 40 mg Azithromycin (Zithromax 500mg Ivpb (Pre-Docked)) 250 mls @ 250 mls/hr IVPB DAILY [facility] Last Admin: 02/07/17 09:45 Dose: 250 mls/hr Cefepime HCl 2 gm/ Dextrose 100 mls @ 200 mls/hr IVPB Q8H-IV [facility] Last Admin: 02/07/17 09:45 Dose: 200 mls/hr Magnesium Oxide (Mag-Ox -) 400 mg PO BID [facility] Last Admin: 02/07/17 09:45 Dose: 400 mg Methylprednisolone Sodium Succinate (Solu-Medrol -) 40 mg IVPB Q12H [facility] Last Admin: 02/07/17 09:45 Dose: 40 mg Metoprolol Succinate (Toprol Xl -) 50 mg PO DAILY [facility] Last Admin: 02/07/17 09:45 Dose: 50 mg Non-Formulary Medication (Ibrutinib [Imbruvica]) 0 mg PO DAILY@0700 [facility] Last Admin: 02/07/17 06:51 Dose: 420 mg Pantoprazole Sodium (Protonix -) 40 mg PO DAILY [facility] Last Admin: 02/07/17 09:45 Dose: 40 mg Quinapril HCl (Accupril -) 40 mg PO DAILY [facility] Last Admin: 02/07/17 09:45 Dose: 40 mg Tamsulosin HCl (Flomax -) 0.4 mg PO DAILY@0830 [facility] Last Admin: 02/07/17 09:45 Dose: 0.4 mg - Objective Vital Signs: Vital Signs Temperature 98.3 F 02/07/17 09:00 Pulse Rate 92 H 02/07/17 09:00 Respiratory Rate 18 02/07/17 09:00 Blood Pressure 153/82 02/07/17 09:00 O2 Sat by Pulse Oximetry (%) 93 L 02/06/17 22:00 Constitutional: Yes: Well Nourished, Calm Eyes: Yes: WNL HENT: Yes: WNL Neck: Yes: WNL Cardiovascular: Yes: Regular Rate and Rhythm, S1, S2 Respiratory: Yes: Rhonchi Gastrointestinal: Yes: Normal Bowel Sounds, Soft Extremities: Yes: WNL Edema: No Labs: CBC, BMP 02/07/17 05:40 02/07/17 05:40 Assessment/Plan ASSESSMENT AND PLAN: Acute Hypoxic Respiratory Failure improving Pneumonia clinically improving h/o CLL CAD s/p CABG HTN Hypercholesterolemia CKD Lung Nodule - medrol - lasix as needed - antibiotics per ID - DVT prophylaxis - chest x-ray - home o2 - will need outpt f/u of chest imaging to ensure resolution of infiltrate and lung nodule Problem List - Problems (1) Pneumonia, community acquired Code(s): J18.9 - PNEUMONIA, UNSPECIFIED ORGANISM (2) CAD (coronary artery disease) Code(s): I25.10 - ATHSCL HEART DISEASE OF [place] CORONARY ARTERY W/O ANG PCTRS Qualifiers: Coronary Disease-Associated Artery/Lesion type: [place] artery [place] vs. transplanted heart: [place] heart Associated angina: without angina Qualified Code(s): I25.10 - Atherosclerotic heart disease of [place] coronary artery without angina pectoris (3) HLD (hyperlipidemia) Code(s): E78.5 - HYPERLIPIDEMIA, UNSPECIFIED Qualifiers: Hyperlipidemia type: pure hypercholesterolemia Qualified Code(s): E78.00 - Pure hypercholesterolemia, unspecified; E78.0 - Pure hypercholesterolemia (4) HTN (hypertension) Code(s): I10 - ESSENTIAL (PRIMARY) HYPERTENSION Qualifiers: Hypertension type: essential hypertension Qualified Code(s): I10 - Essential (primary) hypertension (5) CLL (chronic lymphocytic leukemia) Code(s): C91.10 - CHRONIC LYMPHOCYTIC LEUK OF B-CELL TYPE NOT ACHIEVE REMIS
--- NOTE | 2017-02-07 12:44 | PN ---
Progress Note, Physician History of Present Illness: Dyspnea improving, denies cough or chest pain. - Current Medication List Current Medications: Active Medications Acetaminophen (Tylenol -) 650 mg PO Q6H PRN PRN Reason: FEVER OR PAIN Albuterol Sulfate (Ventolin 0.083% Nebulizer Soln -) 1 amp NEB QIDR [facility] Last Admin: 02/07/17 12:06 Dose: 1 amp Amlodipine Besylate (Norvasc -) 5 mg PO DAILY [facility] Last Admin: 02/07/17 09:45 Dose: 5 mg Aspirin (Asa -) 81 mg PO DAILY [facility] Last Admin: 02/07/17 09:45 Dose: 81 mg Atorvastatin Calcium (Lipitor -) 10 mg PO HS [facility] Last Admin: 02/06/17 21:28 Dose: 10 mg Enoxaparin Sodium (Lovenox -) 40 mg SQ DAILY [facility] Last Admin: 02/07/17 09:45 Dose: 40 mg Azithromycin (Zithromax 500mg Ivpb (Pre-Docked)) 250 mls @ 250 mls/hr IVPB DAILY [facility] Last Admin: 02/07/17 09:45 Dose: 250 mls/hr Cefepime HCl 2 gm/ Dextrose 100 mls @ 200 mls/hr IVPB Q8H-IV [facility] Last Admin: 02/07/17 09:45 Dose: 200 mls/hr Magnesium Oxide (Mag-Ox -) 400 mg PO BID [facility] Last Admin: 02/07/17 09:45 Dose: 400 mg Methylprednisolone Sodium Succinate (Solu-Medrol -) 40 mg IVPB Q12H [facility] Last Admin: 02/07/17 09:45 Dose: 40 mg Metoprolol Succinate (Toprol Xl -) 50 mg PO DAILY [facility] Last Admin: 02/07/17 09:45 Dose: 50 mg Non-Formulary Medication (Ibrutinib [Imbruvica]) 0 mg PO DAILY@0700 [facility] Last Admin: 02/07/17 06:51 Dose: 420 mg Pantoprazole Sodium (Protonix -) 40 mg PO DAILY [facility] Last Admin: 02/07/17 09:45 Dose: 40 mg Quinapril HCl (Accupril -) 40 mg PO DAILY [facility] Last Admin: 02/07/17 09:45 Dose: 40 mg Tamsulosin HCl (Flomax -) 0.4 mg PO DAILY@0830 [facility] Last Admin: 02/07/17 09:45 Dose: 0.4 mg - Objective Vital Signs: Vital Signs Temperature 98.3 F 02/07/17 09:00 Pulse Rate 92 H 02/07/17 09:00 Respiratory Rate 18 02/07/17 09:00 Blood Pressure 153/82 02/07/17 09:00 O2 Sat by Pulse Oximetry (%) 93 L 02/06/17 22:00 Constitutional: Yes: No Distress, Calm, Thin Neck: Yes: Supple Cardiovascular: Yes: Regular Rate and Rhythm Respiratory: Yes: Regular, Diminished Gastrointestinal: Yes: Normal Bowel Sounds, Soft Edema: No Labs: CBC, BMP 02/07/17 05:40 02/07/17 05:40 Problem List - Problems (1) Acute respiratory failure Code(s): J96.00 - ACUTE RESPIRATORY FAILURE, UNSP W HYPOXIA OR HYPERCAPNIA (2) Ascending aortic aneurysm Code(s): I71.2 - THORACIC AORTIC ANEURYSM, WITHOUT RUPTURE (3) CKD (chronic kidney disease) Code(s): N18.9 - CHRONIC KIDNEY DISEASE, UNSPECIFIED Qualifiers: Chronic kidney disease stage: stage 2 (mild) Qualified Code(s): N18.2 - Chronic kidney disease, stage 2 (mild) (4) CLL (chronic lymphocytic leukemia) Code(s): C91.10 - CHRONIC LYMPHOCYTIC LEUK OF B-CELL TYPE NOT ACHIEVE REMIS (5) Hx of CABG Code(s): Z95.1 - PRESENCE OF AORTOCORONARY BYPASS GRAFT (6) Pneumonia, community acquired Code(s): J18.9 - PNEUMONIA, UNSPECIFIED ORGANISM (7) CAD (coronary artery disease) Code(s): I25.10 - ATHSCL HEART DISEASE OF [place] CORONARY ARTERY W/O ANG PCTRS Qualifiers: Coronary Disease-Associated Artery/Lesion type: [place] artery [place] vs. transplanted heart: [place] heart Associated angina: without angina Qualified Code(s): I25.10 - Atherosclerotic heart disease of [place] coronary artery without angina pectoris (8) HLD (hyperlipidemia) Code(s): E78.5 - HYPERLIPIDEMIA, UNSPECIFIED Qualifiers: Hyperlipidemia type: pure hypercholesterolemia Qualified Code(s): E78.00 - Pure hypercholesterolemia, unspecified; E78.0 - Pure hypercholesterolemia (9) HTN (hypertension) Code(s): I10 - ESSENTIAL (PRIMARY) HYPERTENSION Qualifiers: Hypertension type: essential hypertension Qualified Code(s): I10 - Essential (primary) hypertension Assessment/Plan 02/03/2017 Normal biventricular size and fxn, mild [place], mild MS 1. Acute hypoxic respiratory failure due to community acquired pneumonia improving 2. Coronary artery disease status post CABG, angina pectoris 3. Hypertension 4. Hypercholesterolemia 5. Ascending aortic aneurysm 6. CLL 7. Hypokalemia and hypercalcemia resolved 8. Anemia 9. CKD 10. Lung nodule PLAN: 1. Continue empiric antibiotic coverage, IV steroid taper, O2 and nebulizer treatment 2. Continue Metoprolol ER 50 qd, Amlodipine 5 qd and Accupril 40 qd 3. Continue Atorvastatin 10 qhs (previously was on Vytorin) 4. Continue ASA 81 qd 5. Continue Imbruvica for CLL 6. Ascending aortic aneurysm can be followed as outpatient 7. K supplement and monitor electrolytes 8. DVT and GI prophylaxis 9. Will need outpt f/u of chest imaging to ensure resolution of infiltrate and lung nodule
--- NOTE | 2017-02-07 13:44 | PN ---
Progress Note, Physician History of Present Illness: Awake, alert No complaints No c/o dyspnea Occasional dry cough No fever/ chills Afebrile on steroids - Current Medication List Current Medications: Active Medications Acetaminophen (Tylenol -) 650 mg PO Q6H PRN PRN Reason: FEVER OR PAIN Albuterol Sulfate (Ventolin 0.083% Nebulizer Soln -) 1 amp NEB QIDR [facility] Last Admin: 02/07/17 12:06 Dose: 1 amp Amlodipine Besylate (Norvasc -) 5 mg PO DAILY [facility] Last Admin: 02/07/17 09:45 Dose: 5 mg Aspirin (Asa -) 81 mg PO DAILY [facility] Last Admin: 02/07/17 09:45 Dose: 81 mg Atorvastatin Calcium (Lipitor -) 10 mg PO HS [facility] Last Admin: 02/06/17 21:28 Dose: 10 mg Enoxaparin Sodium (Lovenox -) 40 mg SQ DAILY [facility] Last Admin: 02/07/17 09:45 Dose: 40 mg Azithromycin (Zithromax 500mg Ivpb (Pre-Docked)) 250 mls @ 250 mls/hr IVPB DAILY [facility] Last Admin: 02/07/17 09:45 Dose: 250 mls/hr Cefepime HCl 2 gm/ Dextrose 100 mls @ 200 mls/hr IVPB Q8H-IV [facility] Last Admin: 02/07/17 09:45 Dose: 200 mls/hr Magnesium Oxide (Mag-Ox -) 400 mg PO BID [facility] Last Admin: 02/07/17 09:45 Dose: 400 mg Methylprednisolone Sodium Succinate (Solu-Medrol -) 40 mg IVPB Q12H [facility] Last Admin: 02/07/17 09:45 Dose: 40 mg Metoprolol Succinate (Toprol Xl -) 50 mg PO DAILY [facility] Last Admin: 02/07/17 09:45 Dose: 50 mg Non-Formulary Medication (Ibrutinib [Imbruvica]) 0 mg PO DAILY@0700 [facility] Last Admin: 02/07/17 06:51 Dose: 420 mg Pantoprazole Sodium (Protonix -) 40 mg PO DAILY [facility] Last Admin: 02/07/17 09:45 Dose: 40 mg Quinapril HCl (Accupril -) 40 mg PO DAILY [facility] Last Admin: 02/07/17 09:45 Dose: 40 mg Tamsulosin HCl (Flomax -) 0.4 mg PO DAILY@0830 [facility] Last Admin: 02/07/17 09:45 Dose: 0.4 mg - Objective Vital Signs: Vital Signs Temperature 98.3 F 02/07/17 09:00 Pulse Rate 92 H 02/07/17 09:00 Respiratory Rate 18 02/07/17 09:00 Blood Pressure 153/82 02/07/17 09:00 O2 Sat by Pulse Oximetry (%) 93 L 02/06/17 22:00 Constitutional: Yes: No Distress Eyes: Yes: Conjunctiva Clear Cardiovascular: Yes: Regular Rate and Rhythm, S1, S2 Respiratory: Yes: Other (Few crepitations L base) Gastrointestinal: Yes: Normal Bowel Sounds, Soft. No: Tenderness Edema: No Labs: CBC, BMP 02/07/17 05:40 02/07/17 05:40 Assessment/Plan Bilateral pneumonia Clinically and radiographically improved Recurrent fever- afebrile on steroids CLL PCN allergy Continue empiric zithromax/ cefepime Would switch to po levaquin next 24-48h
[2017-02-07] MEDS ORDERED: PT OWN MED DRAWER 7, Y5N ONE (16:03)
[2017-02-07] MEDS: ATORVASTATIN CA 10 MG TABLET (FP) PO SCH (21:20)
[2017-02-08] MEDS ORDERED: PT OWN MED DRAWER 7, Y5N ONE ×2 (01:35→06:12)
[2017-02-08] MEDS: CEFEPIME 2 GM in DEXTROSE 5%-WATER - 100 ML IVPB SCH ×3 (01:55→17:05)
[2017-02-08] MEDS: IBRUTINIB PO SCH (06:14)
[2017-02-08] MEDS: ALBUTEROL SO4 0.083% IH SOL 2.5 MG/3 ML VIAL.NEB. NEB SCH ×4 (06:45→23:09)
[2017-02-08 07:41] LABS: MCH 28.3 pg (25.7-33.7); MCHC 33.6 g/dl (32.0-35.9); MEAN CELL VOLUME 84.1 fl (80-96); MEAN PLT VOLUME 8.4 fl (7.5-11.1); PLATELET COUNT 166 K/MM3 (134-434); RDW 16.4 % (11.9-15.9); WHITE BLOOD COUNT 13.8 K/mm3 (4.0-10.0)
[2017-02-08 08:09] LABS: ANION GAP 9 (8-16); CALCIUM 9.1 mg/dL (8.5-10.1); CO2 31 mmol/L (21-32)
[2017-02-08 08:12] LABS: CREATININE 1.2 mg/dL (0.7-1.3); PHOSPHOROUS 2.3 mg/dL (2.5-4.9)
[2017-02-08] MEDS: TAMSULOSIN HCL 0.4 MG CAP.ER.24H (FP) PO SCH (09:07)
[2017-02-08 09:08] LABS: GLUCOSE,RANDOM 340 mg/dL (74-106)
[2017-02-08 09:19] LABS: PLATELET ESTIMATE ADEQUATE (NORMAL)
[2017-02-08] MEDS: ENOXAPARIN NA (PORCINE) 40 MG/0.4 ML DISP.SYRIN SQ SCH (10:23)
[2017-02-08] MEDS: amLODIPine BESYLATE 5 MG TABLET (FP) PO SCH (10:23)
[2017-02-08] MEDS: MAGNESIUM OXIDE 400 MG TABLET (FP) PO SCH ×2 (10:23→21:51)
[2017-02-08] MEDS: METOPROLOL SUCCINATE 50 MG TAB.SR.24H (FP) PO SCH (10:24)
[2017-02-08] MEDS: ASPIRIN 81 MG CHEWABLE TABLETS PO SCH (10:24)
[2017-02-08] MEDS: PANTOPRAZOLE 40 MG TABLET (FP) PO SCH (10:24)
--- NOTE | 2017-02-08 11:20 | PN ---
Progress Note, Physician History of Present Illness: PULMONARY ALERT,OOB-CHAIR,COMFORTABLE,-SOB - Current Medication List Current Medications: Active Medications Acetaminophen (Tylenol -) 650 mg PO Q6H PRN PRN Reason: FEVER OR PAIN Albuterol Sulfate (Ventolin 0.083% Nebulizer Soln -) 1 amp NEB QIDR [facility] Last Admin: 02/08/17 11:12 Dose: 1 amp Amlodipine Besylate (Norvasc -) 5 mg PO DAILY [facility] Last Admin: 02/08/17 10:23 Dose: 5 mg Aspirin (Asa -) 81 mg PO DAILY [facility] Last Admin: 02/08/17 10:24 Dose: 81 mg Atorvastatin Calcium (Lipitor -) 10 mg PO HS [facility] Last Admin: 02/07/17 21:20 Dose: 10 mg Enoxaparin Sodium (Lovenox -) 40 mg SQ DAILY [facility] Last Admin: 02/08/17 10:23 Dose: 40 mg Azithromycin (Zithromax 500mg Ivpb (Pre-Docked)) 250 mls @ 250 mls/hr IVPB DAILY [facility] Last Admin: 02/07/17 09:45 Dose: 250 mls/hr Cefepime HCl 2 gm/ Dextrose 100 mls @ 200 mls/hr IVPB Q8H-IV [facility] Last Admin: 02/08/17 10:23 Dose: 200 mls/hr Magnesium Oxide (Mag-Ox -) 400 mg PO BID [facility] Last Admin: 02/08/17 10:23 Dose: 400 mg Methylprednisolone Sodium Succinate (Solu-Medrol -) 40 mg IVPB Q12H [facility] Last Admin: 02/07/17 21:21 Dose: 40 mg Metoprolol Succinate (Toprol Xl -) 50 mg PO DAILY [facility] Last Admin: 02/08/17 10:24 Dose: 50 mg Non-Formulary Medication (Ibrutinib [Imbruvica]) 0 mg PO DAILY@0700 [facility] Last Admin: 02/08/17 06:14 Dose: 420 mg Pantoprazole Sodium (Protonix -) 40 mg PO DAILY [facility] Last Admin: 02/08/17 10:24 Dose: 40 mg Quinapril HCl (Accupril -) 40 mg PO DAILY [facility] Last Admin: 02/07/17 09:45 Dose: 40 mg Tamsulosin HCl (Flomax -) 0.4 mg PO DAILY@0830 [facility] Last Admin: 02/08/17 09:07 Dose: 0.4 mg - Objective Vital Signs: Vital Signs Temperature 98.2 F 02/08/17 10:37 Pulse Rate 100 H 02/08/17 11:12 Respiratory Rate 20 02/08/17 10:37 Blood Pressure 154/84 02/08/17 10:37 O2 Sat by Pulse Oximetry (%) 92 L 02/08/17 11:12 Constitutional: Yes: Well Nourished, Calm Eyes: Yes: WNL HENT: Yes: WNL Neck: Yes: WNL Cardiovascular: Yes: Regular Rate and Rhythm, S1, S2 Respiratory: Yes: Rales (few crackles bilaterally) Gastrointestinal: Yes: Normal Bowel Sounds, Soft Extremities: Yes: WNL Edema: Yes Edema: LLE: Trace, RLE: Trace Labs: CBC, BMP 02/08/17 07:20 02/08/17 07:20 - ....Imaging Chest X-ray: Report Reviewed (improving infiltrates), Image Reviewed Assessment/Plan ASSESSMENT AND PLAN: Acute Hypoxic Respiratory Failure improving Pneumonia clinically improving h/o CLL CAD s/p CABG HTN Hypercholesterolemia CKD Lung Nodule - prednisone - lasix as needed - antibiotics per ID - DVT prophylaxis - home o2 - will need outpt f/u of chest imaging to ensure resolution of infiltrate and lung nodule - check o2 sat at rest and post exercise Problem List - Problems (1) Pneumonia, community acquired Code(s): J18.9 - PNEUMONIA, UNSPECIFIED ORGANISM (2) CAD (coronary artery disease) Code(s): I25.10 - ATHSCL HEART DISEASE OF [place] CORONARY ARTERY W/O ANG PCTRS Qualifiers: Coronary Disease-Associated Artery/Lesion type: [place] artery [place] vs. transplanted heart: [place] heart Associated angina: without angina Qualified Code(s): I25.10 - Atherosclerotic heart disease of [place] coronary artery without angina pectoris (3) HLD (hyperlipidemia) Code(s): E78.5 - HYPERLIPIDEMIA, UNSPECIFIED Qualifiers: Hyperlipidemia type: pure hypercholesterolemia Qualified Code(s): E78.00 - Pure hypercholesterolemia, unspecified; E78.0 - Pure hypercholesterolemia (4) HTN (hypertension) Code(s): I10 - ESSENTIAL (PRIMARY) HYPERTENSION Qualifiers: Hypertension type: essential hypertension Qualified Code(s): I10 - Essential (primary) hypertension (5) CLL (chronic lymphocytic leukemia) Code(s): C91.10 - CHRONIC LYMPHOCYTIC LEUK OF B-CELL TYPE NOT ACHIEVE REMIS
[2017-02-08] MEDS: methylPREDNISolone NA SUCC 40 MG/1 ML VIAL IVPB SCH ×2 (11:38→21:51)
[2017-02-08] MEDS: QUINAPRIL HCL 40 MG TABLET (FP) PO SCH (11:38)
--- NOTE | 2017-02-08 11:51 | PN ---
Progress Note (short form) - Note Progress Note: Chief Complaint: Events noted, notes reviewed, sitting in a chair, denies any chest pain, dyuspne improving History of Present Illness: Seen and examined. Events noted, notes reviewed, sitting in a chair, denies any chest pain, dyuspne improving - Current Medication List Current Medications Acetaminophen (Tylenol -) 650 mg PO Q6H PRN PRN Reason: FEVER OR PAIN Albuterol Sulfate (Ventolin 0.083% Nebulizer Soln -) 1 amp NEB QIDR [facility] Last Admin: 02/08/17 11:12 Dose: 1 amp Amlodipine Besylate (Norvasc -) 5 mg PO DAILY [facility] Last Admin: 02/08/17 10:23 Dose: 5 mg Aspirin (Asa -) 81 mg PO DAILY [facility] Last Admin: 02/08/17 10:24 Dose: 81 mg Atorvastatin Calcium (Lipitor -) 10 mg PO HS [facility] Last Admin: 02/07/17 21:20 Dose: 10 mg Enoxaparin Sodium (Lovenox -) 40 mg SQ DAILY [facility] Last Admin: 02/08/17 10:23 Dose: 40 mg Azithromycin (Zithromax 500mg Ivpb (Pre-Docked)) 250 mls @ 250 mls/hr IVPB DAILY [facility] Last Admin: 02/07/17 09:45 Dose: 250 mls/hr Cefepime HCl 2 gm/ Dextrose 100 mls @ 200 mls/hr IVPB Q8H-IV [facility] Last Admin: 02/08/17 10:23 Dose: 200 mls/hr Magnesium Oxide (Mag-Ox -) 400 mg PO BID [facility] Last Admin: 02/08/17 10:23 Dose: 400 mg Methylprednisolone Sodium Succinate (Solu-Medrol -) 40 mg IVPB Q12H [facility] Stop: 02/08/17 23:00 Last Admin: 02/07/17 21:21 Dose: 40 mg Metoprolol Succinate (Toprol Xl -) 50 mg PO DAILY [facility] Last Admin: 02/08/17 10:24 Dose: 50 mg Non-Formulary Medication (Ibrutinib [Imbruvica]) 0 mg PO DAILY@0700 [facility] Last Admin: 02/08/17 06:14 Dose: 420 mg Pantoprazole Sodium (Protonix -) 40 mg PO DAILY [facility] Last Admin: 02/08/17 10:24 Dose: 40 mg Prednisone (Deltasone -) 40 mg PO DAILY [facility] Quinapril HCl (Accupril -) 40 mg PO DAILY [facility] Last Admin: 02/07/17 09:45 Dose: 40 mg Tamsulosin HCl (Flomax -) 0.4 mg PO DAILY@0830 [facility] Last Admin: 02/08/17 09:07 Dose: 0.4 mg - Objective Vital Signs: Last Vital Signs Temp Pulse Resp BP Pulse Ox 98.2 F 100 H 20 154/84 92 L 02/08/17 10:37 02/08/17 11:12 02/08/17 10:37 02/08/17 10:37 02/08/17 11:12 Constitutional: No Distress, Calm, Thin Neck: Supple Negative JVD Cardiovascular: S1 S2 Regular Rate and Rhythm Respiratory: Diminished Gastrointestinal: Soft Benign Normal Bowel Sounds Ext: No Edema Labs: CBC, BMP 02/08/17 07:20 02/08/17 07:20 Assessment/Plan ASSESSMENT: 1. Acute hypoxic respiratory failure due to community acquired pneumonia resolved 2. Coronary artery disease status post CABG angina pectoris 3. Diastolic LV dysfunction with class I NYHA classification LV failure, euvolemic 4. Hypertension 5. Hypercholesterolemia 6. Ascending aortic aneurysm 7. CLL 8. CKD 9. Anemia PLAN: 1. Continue antibiotic as per the primary team, continue steroids and bronchodilators 2. Continue Toprol XL 3. Continue Amlodipine 4. Continue Accupril 5. Continue Atorvastatin (previously was on Vytorin) 6. Continue ASA 7. As outlined in prior notes ascending aortic aneurysm can be followed as outpatient Jm Akers MD
[2017-02-08] MEDS: AZITHROMYCIN IVPB 250 ML IVPB SCH (12:18)
--- NOTE | 2017-02-08 15:29 | PN ---
Progress Note (short form) - Note Progress Note: Patient seen and examined. Sitting in chair. Denies chest pain, shortness of breath, palpitation or dizziness. Afebrile. - Current Medication List Current Medications: Active Medications Acetaminophen (Tylenol -) 650 mg PO Q6H PRN PRN Reason: FEVER OR PAIN Albuterol Sulfate (Ventolin 0.083% Nebulizer Soln -) 1 amp NEB QIDR [facility] Last Admin: 02/07/17 06:25 Dose: 1 amp Amlodipine Besylate (Norvasc -) 5 mg PO DAILY [facility] Last Admin: 02/07/17 09:45 Dose: 5 mg Aspirin (Asa -) 81 mg PO DAILY [facility] Last Admin: 02/07/17 09:45 Dose: 81 mg Atorvastatin Calcium (Lipitor -) 10 mg PO HS [facility] Last Admin: 02/06/17 21:28 Dose: 10 mg Enoxaparin Sodium (Lovenox -) 40 mg SQ DAILY [facility] Last Admin: 02/07/17 09:45 Dose: 40 mg Azithromycin (Zithromax 500mg Ivpb (Pre-Docked)) 250 mls @ 250 mls/hr IVPB DAILY [facility] Last Admin: 02/07/17 09:45 Dose: 250 mls/hr Cefepime HCl 2 gm/ Dextrose 100 mls @ 200 mls/hr IVPB Q8H-IV [facility] Last Admin: 02/07/17 09:45 Dose: 200 mls/hr Magnesium Oxide (Mag-Ox -) 400 mg PO BID [facility] Last Admin: 02/07/17 09:45 Dose: 400 mg Methylprednisolone Sodium Succinate (Solu-Medrol -) 40 mg IVPB Q12H [facility] Last Admin: 02/07/17 09:45 Dose: 40 mg Metoprolol Succinate (Toprol Xl -) 50 mg PO DAILY [facility] Last Admin: 02/07/17 09:45 Dose: 50 mg Non-Formulary Medication (Ibrutinib [Imbruvica]) 0 mg PO DAILY@0700 [facility] Last Admin: 02/07/17 06:51 Dose: 420 mg Pantoprazole Sodium (Protonix -) 40 mg PO DAILY [facility] Last Admin: 02/07/17 09:45 Dose: 40 mg Quinapril HCl (Accupril -) 40 mg PO DAILY [facility] Last Admin: 02/07/17 09:45 Dose: 40 mg Tamsulosin HCl (Flomax -) 0.4 mg PO DAILY@0830 [facility] Last Admin: 02/07/17 09:45 Dose: 0.4 mg - Objective Vital Signs: Vital Signs Period Temp Pulse Resp BP Sys/Bull Pulse Ox Last 24 Hr 97.5 F-98.2 F 52-104 20-22 105-154/56-92 92-94 Constitutional: Yes: Well Nourished, No Distress, Calm Cardiovascular: Yes: Regular Rate and Rhythm. No: Gallop, Murmur, Rub Respiratory: Yes: Regular, On Nasal O2, Rhonchi (bibasilar, minimal). No: Rales , Wheezes Gastrointestinal: Yes: Normal Bowel Sounds, Soft. No: Distention, Tenderness Extremities: Yes: WNL Edema: No Labs: CBC, BMP 02/08/17 07:20 02/08/17 07:20 Problem List - Problems (1) Acute respiratory failure Code(s): J96.00 - ACUTE RESPIRATORY FAILURE, UNSP W HYPOXIA OR HYPERCAPNIA (2) Pneumonia, community acquired Code(s): J18.9 - PNEUMONIA, UNSPECIFIED ORGANISM (3) CKD (chronic kidney disease) Code(s): N18.9 - CHRONIC KIDNEY DISEASE, UNSPECIFIED Qualifiers: Chronic kidney disease stage: stage 2 (mild) Qualified Code(s): N18.2 - Chronic kidney disease, stage 2 (mild) (4) CLL (chronic lymphocytic leukemia) Code(s): C91.10 - CHRONIC LYMPHOCYTIC LEUK OF B-CELL TYPE NOT ACHIEVE REMIS (5) CAD (coronary artery disease) Code(s): I25.10 - ATHSCL HEART DISEASE OF [place] CORONARY ARTERY W/O ANG PCTRS Qualifiers: Coronary Disease-Associated Artery/Lesion type: [place] artery [place] vs. transplanted heart: [place] heart Associated angina: without angina Qualified Code(s): I25.10 - Atherosclerotic heart disease of [place] coronary artery without angina pectoris (6) HLD (hyperlipidemia) Code(s): E78.5 - HYPERLIPIDEMIA, UNSPECIFIED Qualifiers: Hyperlipidemia type: pure hypercholesterolemia Qualified Code(s): E78.00 - Pure hypercholesterolemia, unspecified; E78.0 - Pure hypercholesterolemia (7) HTN (hypertension) Code(s): I10 - ESSENTIAL (PRIMARY) HYPERTENSION Qualifiers: Hypertension type: essential hypertension Qualified Code(s): I10 - Essential (primary) hypertension (8) Hypercalcemia Code(s): E83.52 - HYPERCALCEMIA (9) Hypophosphatemia Code(s): E83.39 - OTHER DISORDERS OF PHOSPHORUS METABOLISM Assessment/Plan (1) Acute respiratory failure -Improving -tapering down steroids -pre and post to see if can wean off oxygen (2) Pneumonia, community acquired Assessment/Plan: -afebrile since 02/02 -ID following and case discussed -ID to evaluate transition to oral meds Code(s): J18.9 - PNEUMONIA, UNSPECIFIED ORGANISM (3) CKD (chronic kidney disease) Assessment/Plan: -at baseline -monitor Code(s): N18.9 - CHRONIC KIDNEY DISEASE, UNSPECIFIED Qualifiers: Chronic kidney disease stage: stage 2 (mild) Qualified Code(s): N18.2 - Chronic kidney disease, stage 2 (mild) (4) CLL (chronic lymphocytic leukemia) Assessment/Plan: -holding home ibrutinib -oncology following Code(s): C91.10 - CHRONIC LYMPHOCYTIC LEUK OF B-CELL TYPE NOT ACHIEVE REMIS (5) CAD (coronary artery disease) Assessment/Plan: -quiescent, no chest pain -continue home regimen Code(s): I25.10 - ATHSCL HEART DISEASE OF [place] CORONARY ARTERY W/O ANG PCTRS (6) HLD (hyperlipidemia) Assessment/Plan: -continue statin Code(s): E78.5 - HYPERLIPIDEMIA, UNSPECIFIED (7) HTN (hypertension) Assessment/Plan: -controlled -continue norvasc, toprol xl, and quinapril Code(s): I10 - ESSENTIAL (PRIMARY) HYPERTENSION (8) Hypercalcemia -improved and stable -off IVF and lasix -monitor (9) Hypophosphatemia -finished replacement
[2017-02-08] MEDS: ATORVASTATIN CA 10 MG TABLET (FP) PO SCH (21:51)
[2017-02-09] MEDS ORDERED: PT OWN MED DRAWER 7, Y5N ONE (01:41)
[2017-02-09] MEDS: CEFEPIME 2 GM in DEXTROSE 5%-WATER - 100 ML IVPB SCH ×3 (01:46→17:19)
[2017-02-09] MEDS: IBRUTINIB PO SCH (06:30)
[2017-02-09] MEDS: ALBUTEROL SO4 0.083% IH SOL 2.5 MG/3 ML VIAL.NEB. NEB SCH ×3 (06:55→17:56)
[2017-02-09 08:24] LABS: MCH 27.8 pg (25.7-33.7); MCHC 33.3 g/dl (32.0-35.9); MEAN CELL VOLUME 83.5 fl (80-96); MEAN PLT VOLUME 8.5 fl (7.5-11.1); PLATELET COUNT 160 K/MM3 (134-434); RDW 16.3 % (11.9-15.9)
[2017-02-09] MEDS: TAMSULOSIN HCL 0.4 MG CAP.ER.24H (FP) PO SCH (08:35)
[2017-02-09 08:44] LABS: ALBUMIN 2.2 g/dl (3.4-5.0); ANION GAP 10 (8-16); CALCIUM 9.1 mg/dL (8.5-10.1); CO2 30 mmol/L (21-32); SGOT/AST 22 U/L (15-37); SGPT/ALT 42 U/L (12-78)
[2017-02-09 08:48] LABS: ALK PHOS 61 U/L (45-117); BILIRUBIN,TOTAL 0.3 mg/dL (0.2-1.0); CREATININE 1.2 mg/dL (0.7-1.3)
[2017-02-09 09:03] LABS: GLUCOSE,RANDOM 310 mg/dL (74-106)
[2017-02-09] MEDS: ENOXAPARIN NA (PORCINE) 40 MG/0.4 ML DISP.SYRIN SQ SCH (09:26)
[2017-02-09] MEDS: ASPIRIN 81 MG CHEWABLE TABLETS PO SCH (09:26)
[2017-02-09] MEDS: METOPROLOL SUCCINATE 50 MG TAB.SR.24H (FP) PO SCH (09:26)
[2017-02-09] MEDS: predniSONE 20 MG TABLET (UD) PO SCH (09:26)
[2017-02-09] MEDS: amLODIPine BESYLATE 5 MG TABLET (FP) PO SCH (09:26)
[2017-02-09] MEDS: MAGNESIUM OXIDE 400 MG TABLET (FP) PO SCH ×2 (09:26→22:08)
[2017-02-09] MEDS: PANTOPRAZOLE 40 MG TABLET (FP) PO SCH (09:26)
[2017-02-09] MEDS: QUINAPRIL HCL 40 MG TABLET (FP) PO SCH (09:42)
[2017-02-09 10:16] LABS: PLATELET ESTIMATE ADEQUATE (NORMAL)
[2017-02-09] MEDS: AZITHROMYCIN IVPB 250 ML IVPB SCH (10:35)
--- NOTE | 2017-02-09 10:47 | PN ---
Progress Note (short form) - Note Progress Note: Chief Complaint: Events noted, notes reviewed, sitting in a chair, denies any chest pain, dyspnea improving, complaining of generalized weakness History of Present Illness: Seen and examined. Events noted, notes reviewed, sitting in a chair, denies any chest pain, dyspnea improving, complaining of generalized weakness - Current Medication List Current Medications Acetaminophen (Tylenol -) 650 mg PO Q6H PRN PRN Reason: FEVER OR PAIN Albuterol Sulfate (Ventolin 0.083% Nebulizer Soln -) 1 amp NEB QIDR [facility] Last Admin: 02/09/17 06:55 Dose: 1 amp Amlodipine Besylate (Norvasc -) 5 mg PO DAILY [facility] Last Admin: 02/09/17 09:26 Dose: 5 mg Aspirin (Asa -) 81 mg PO DAILY [facility] Last Admin: 02/09/17 09:26 Dose: 81 mg Atorvastatin Calcium (Lipitor -) 10 mg PO HS [facility] Last Admin: 02/08/17 21:51 Dose: 10 mg Enoxaparin Sodium (Lovenox -) 40 mg SQ DAILY [facility] Last Admin: 02/09/17 09:26 Dose: 40 mg Azithromycin (Zithromax 500mg Ivpb (Pre-Docked)) 250 mls @ 250 mls/hr IVPB DAILY [facility] Last Admin: 02/08/17 12:18 Dose: 250 mls/hr Cefepime HCl 2 gm/ Dextrose 100 mls @ 200 mls/hr IVPB Q8H-IV [facility] Last Admin: 02/09/17 09:25 Dose: 200 mls/hr Magnesium Oxide (Mag-Ox -) 400 mg PO BID [facility] Last Admin: 02/09/17 09:26 Dose: 400 mg Metoprolol Succinate (Toprol Xl -) 50 mg PO DAILY [facility] Last Admin: 02/09/17 09:26 Dose: 50 mg Non-Formulary Medication (Ibrutinib [Imbruvica]) 0 mg PO DAILY@0700 [facility] Last Admin: 02/09/17 06:30 Dose: 420 mg Pantoprazole Sodium (Protonix -) 40 mg PO DAILY [facility] Last Admin: 02/09/17 09:26 Dose: 40 mg Prednisone (Deltasone -) 40 mg PO DAILY [facility] Last Admin: 02/09/17 09:26 Dose: 40 mg Quinapril HCl (Accupril -) 40 mg PO DAILY [facility] Last Admin: 02/09/17 09:42 Dose: 40 mg Tamsulosin HCl (Flomax -) 0.4 mg PO DAILY@0830 [facility] Last Admin: 02/09/17 08:35 Dose: 0.4 mg - Objective Vital Signs: Last Vital Signs Temp Pulse Resp BP Pulse Ox 98.2 F 80 24 138/77 94 L 02/09/17 06:00 02/09/17 06:00 02/09/17 06:00 02/09/17 06:00 02/08/17 21:00 Constitutional: No Distress, Calm, Thin Neck: Supple Negative JVD Cardiovascular: S1 S2 Regular Rate and Rhythm Respiratory: Diminished Gastrointestinal: Soft Benign Normal Bowel Sounds Ext: No Edema Labs: CBC, BMP 02/09/17 07:30 02/09/17 07:30 Assessment/Plan ASSESSMENT: 1. Acute hypoxic respiratory failure due to community acquired pneumonia resolved 2. Coronary artery disease status post CABG angina pectoris 3. Diastolic LV dysfunction with chronic class I NYHA classification LV failure , euvolemic 4. Hypertension 5. Hypercholesterolemia 6. Ascending thoracic aortic aneurysm 7. CLL 8. CKD 9. Anemia PLAN: 1. Continue antibiotic as per the primary team, continue steroids and bronchodilators 2. Continue Toprol XL 3. Continue Amlodipine 4. Continue Accupril 5. Continue Atorvastatin (previously was on Vytorin) 6. Continue ASA 7. As outlined in prior notes ascending aortic aneurysm can be followed as outpatient Jm Akers MD
--- NOTE | 2017-02-09 11:13 | PN ---
Progress Note, Physician History of Present Illness: PULMONARY ALERT,NAD,OOB-CHAIR,-RESP DISTRESS. PT O2 DESATURATES WITH EXERCISE 87% - Current Medication List Current Medications: Active Medications Acetaminophen (Tylenol -) 650 mg PO Q6H PRN PRN Reason: FEVER OR PAIN Albuterol Sulfate (Ventolin 0.083% Nebulizer Soln -) 1 amp NEB QIDR [facility] [place] Last Admin: 02/09/17 11:05 Dose: 1 amp Amlodipine Besylate (Norvasc -) 5 mg PO DAILY [facility] [place] Last Admin: 02/09/17 09:26 Dose: 5 mg Aspirin (Asa -) 81 mg PO DAILY [facility] [place] Last Admin: 02/09/17 09:26 Dose: 81 mg Atorvastatin Calcium (Lipitor -) 10 mg PO HS [facility] [place] Last Admin: 02/08/17 21:51 Dose: 10 mg Enoxaparin Sodium (Lovenox -) 40 mg SQ DAILY [facility] [place] Last Admin: 02/09/17 09:26 Dose: 40 mg Azithromycin (Zithromax 500mg Ivpb (Pre-Docked)) 250 mls @ 250 mls/hr IVPB DAILY [facility] [place] Last Admin: 02/09/17 10:35 Dose: 250 mls/hr Cefepime HCl 2 gm/ Dextrose 100 mls @ 200 mls/hr IVPB Q8H-IV [facility] [place] Last Admin: 02/09/17 09:25 Dose: 200 mls/hr Magnesium Oxide (Mag-Ox -) 400 mg PO BID [facility] [place] Last Admin: 02/09/17 09:26 Dose: 400 mg Metoprolol Succinate (Toprol Xl -) 50 mg PO DAILY [facility] [place] Last Admin: 02/09/17 09:26 Dose: 50 mg Non-Formulary Medication (Ibrutinib [Imbruvica]) 0 mg PO DAILY@0700 [facility] [place] Last Admin: 02/09/17 06:30 Dose: 420 mg Pantoprazole Sodium (Protonix -) 40 mg PO DAILY [facility] [place] Last Admin: 02/09/17 09:26 Dose: 40 mg Prednisone (Deltasone -) 40 mg PO DAILY [facility] [place] Last Admin: 02/09/17 09:26 Dose: 40 mg Quinapril HCl (Accupril -) 40 mg PO DAILY [facility] [place] Last Admin: 02/09/17 09:42 Dose: 40 mg Tamsulosin HCl (Flomax -) 0.4 mg PO DAILY@0830 [facility] [place] Last Admin: 02/09/17 08:35 Dose: 0.4 mg - Objective Vital Signs: Vital Signs Temperature 98.5 F 02/09/17 10:00 Pulse Rate 92 H 02/09/17 10:47 Respiratory Rate 18 02/09/17 10:00 Blood Pressure 127/79 02/09/17 10:00 O2 Sat by Pulse Oximetry (%) 90 L 02/09/17 10:47 Constitutional: Yes: Well Nourished, Calm Eyes: Yes: WNL HENT: Yes: WNL Neck: Yes: WNL Cardiovascular: Yes: Regular Rate and Rhythm, S1, S2 Respiratory: Yes: Rales (FEW BIBASILAR CRACKLES) Gastrointestinal: Yes: Normal Bowel Sounds, Soft Extremities: Yes: WNL Edema: No Labs: CBC, BMP 02/09/17 07:30 02/09/17 07:30 Assessment/Plan ASSESSMENT AND PLAN: Acute Hypoxic Respiratory Failure improving Pneumonia clinically improving h/o CLL CAD s/p CABG HTN Hypercholesterolemia CKD Lung Nodule - prednisone - lasix as needed - antibiotics per ID - DVT prophylaxis - home o2 - will need outpt f/u of chest imaging to ensure resolution of infiltrate and lung nodule Problem List - Problems (1) Pneumonia, community acquired Code(s): J18.9 - PNEUMONIA, UNSPECIFIED ORGANISM (2) CAD (coronary artery disease) Code(s): I25.10 - ATHSCL HEART DISEASE OF [place] CORONARY ARTERY W/O ANG PCTRS Qualifiers: Coronary Disease-Associated Artery/Lesion type: [place] artery [place] vs. transplanted heart: [place] heart Associated angina: without angina Qualified Code(s): I25.10 - Atherosclerotic heart disease of [place] coronary artery without angina pectoris (3) HLD (hyperlipidemia) Code(s): E78.5 - HYPERLIPIDEMIA, UNSPECIFIED Qualifiers: Hyperlipidemia type: pure hypercholesterolemia Qualified Code(s): E78.00 - Pure hypercholesterolemia, unspecified; E78.0 - Pure hypercholesterolemia (4) HTN (hypertension) Code(s): I10 - ESSENTIAL (PRIMARY) HYPERTENSION Qualifiers: Hypertension type: essential hypertension Qualified Code(s): I10 - Essential (primary) hypertension (5) CLL (chronic lymphocytic leukemia) Code(s): C91.10 - CHRONIC LYMPHOCYTIC LEUK OF B-CELL TYPE NOT ACHIEVE REMIS
[2017-02-09] MEDS ORDERED: POTASSIUM CHLORIDE TABS 20 MEQ TABLET.ER (FP) PO ONE (12:30)
--- NOTE | 2017-02-09 14:34 | PN ---
Progress Note (short form) - Note Progress Note: Patient seen and examined. Sitting in chair. C/O Right shoulder pain and stiffness Denies chest pain, shortness of breath, palpitation or dizziness. Afebrile. - Current Medication List Current Medications: Active Medications Acetaminophen (Tylenol -) 650 mg PO Q6H PRN PRN Reason: FEVER OR PAIN Albuterol Sulfate (Ventolin 0.083% Nebulizer Soln -) 1 amp NEB QIDR [facility] [place] Last Admin: 02/07/17 06:25 Dose: 1 amp Amlodipine Besylate (Norvasc -) 5 mg PO DAILY [facility] [place] Last Admin: 02/07/17 09:45 Dose: 5 mg Aspirin (Asa -) 81 mg PO DAILY [facility] [place] Last Admin: 02/07/17 09:45 Dose: 81 mg Atorvastatin Calcium (Lipitor -) 10 mg PO HS [facility] [place] Last Admin: 02/06/17 21:28 Dose: 10 mg Enoxaparin Sodium (Lovenox -) 40 mg SQ DAILY [facility] [place] Last Admin: 02/07/17 09:45 Dose: 40 mg Azithromycin (Zithromax 500mg Ivpb (Pre-Docked)) 250 mls @ 250 mls/hr IVPB DAILY [facility] [place] Last Admin: 02/07/17 09:45 Dose: 250 mls/hr Cefepime HCl 2 gm/ Dextrose 100 mls @ 200 mls/hr IVPB Q8H-IV [facility] [place] Last Admin: 02/07/17 09:45 Dose: 200 mls/hr Magnesium Oxide (Mag-Ox -) 400 mg PO BID [facility] [place] Last Admin: 02/07/17 09:45 Dose: 400 mg Methylprednisolone Sodium Succinate (Solu-Medrol -) 40 mg IVPB Q12H [facility] [place] Last Admin: 02/07/17 09:45 Dose: 40 mg Metoprolol Succinate (Toprol Xl -) 50 mg PO DAILY [facility] [place] Last Admin: 02/07/17 09:45 Dose: 50 mg Non-Formulary Medication (Ibrutinib [Imbruvica]) 0 mg PO DAILY@0700 [facility] [place] Last Admin: 02/07/17 06:51 Dose: 420 mg Pantoprazole Sodium (Protonix -) 40 mg PO DAILY [facility] [place] Last Admin: 02/07/17 09:45 Dose: 40 mg Quinapril HCl (Accupril -) 40 mg PO DAILY [facility] [place] Last Admin: 02/07/17 09:45 Dose: 40 mg Tamsulosin HCl (Flomax -) 0.4 mg PO DAILY@0830 [facility] Last Admin: 02/07/17 09:45 Dose: 0.4 mg - Objective Vital Signs: Vital Signs Period Temp Pulse Resp BP Sys/Bull Pulse Ox Last 24 Hr 97.8 F-98.5 F 80-92 18-24 127-143/68-79 90-94 Constitutional: Yes: Well Nourished, No Distress, Calm Cardiovascular: Yes: Regular Rate and Rhythm. No: Gallop, Murmur, Rub Respiratory: Yes: Regular, On Nasal O2, Rhonchi (bibasilar, minimal). No: Rales , Wheezes Gastrointestinal: Yes: Normal Bowel Sounds, Soft. No: Distention, Tenderness Extremities: Yes: WNL Edema: No Labs: CBC, BMP 02/09/17 07:30 02/09/17 07:30 Problem List - Problems (1) Acute respiratory failure Code(s): J96.00 - ACUTE RESPIRATORY FAILURE, UNSP W HYPOXIA OR HYPERCAPNIA (2) Pneumonia, community acquired Code(s): J18.9 - PNEUMONIA, UNSPECIFIED ORGANISM (3) CKD (chronic kidney disease) Code(s): N18.9 - CHRONIC KIDNEY DISEASE, UNSPECIFIED Qualifiers: Chronic kidney disease stage: stage 2 (mild) Qualified Code(s): N18.2 - Chronic kidney disease, stage 2 (mild) (4) CLL (chronic lymphocytic leukemia) Code(s): C91.10 - CHRONIC LYMPHOCYTIC LEUK OF B-CELL TYPE NOT ACHIEVE REMIS (5) CAD (coronary artery disease) Code(s): I25.10 - ATHSCL HEART DISEASE OF [place] CORONARY ARTERY W/O ANG PCTRS Qualifiers: Coronary Disease-Associated Artery/Lesion type: [place] artery [place] vs. transplanted heart: [place] heart Associated angina: without angina Qualified Code(s): I25.10 - Atherosclerotic heart disease of [place] coronary artery without angina pectoris (6) HLD (hyperlipidemia) Code(s): E78.5 - HYPERLIPIDEMIA, UNSPECIFIED Qualifiers: Hyperlipidemia type: pure hypercholesterolemia Qualified Code(s): E78.00 - Pure hypercholesterolemia, unspecified; E78.0 - Pure hypercholesterolemia (7) HTN (hypertension) Code(s): I10 - ESSENTIAL (PRIMARY) HYPERTENSION Qualifiers: Hypertension type: essential hypertension Qualified Code(s): I10 - Essential (primary) hypertension (8) Hypercalcemia Code(s): E83.52 - HYPERCALCEMIA (9) Hypophosphatemia Code(s): E83.39 - OTHER DISORDERS OF PHOSPHORUS METABOLISM Assessment/Plan (1) Acute respiratory failure -Improving -tapering down steroids -Pulmonary follow up appreciated. (2) Pneumonia, community acquired Assessment/Plan: -afebrile since 02/02 -ID following and case discussed Code(s): J18.9 - PNEUMONIA, UNSPECIFIED ORGANISM (3) CKD (chronic kidney disease) Assessment/Plan: -at baseline -monitor Code(s): N18.9 - CHRONIC KIDNEY DISEASE, UNSPECIFIED Qualifiers: Chronic kidney disease stage: stage 2 (mild) Qualified Code(s): N18.2 - Chronic kidney disease, stage 2 (mild) (4) CLL (chronic lymphocytic leukemia) Assessment/Plan: -holding home ibrutinib -oncology following Code(s): C91.10 - CHRONIC LYMPHOCYTIC LEUK OF B-CELL TYPE NOT ACHIEVE REMIS (5) CAD (coronary artery disease) Assessment/Plan: -quiescent, no chest pain -continue home regimen Code(s): I25.10 - ATHSCL HEART DISEASE OF [place] CORONARY ARTERY W/O ANG PCTRS (6) HLD (hyperlipidemia) Assessment/Plan: -continue statin Code(s): E78.5 - HYPERLIPIDEMIA, UNSPECIFIED (7) HTN (hypertension) Assessment/Plan: -controlled -continue norvasc, toprol xl, and quinapril Code(s): I10 - ESSENTIAL (PRIMARY) HYPERTENSION (8) Hypercalcemia -improved and stable -off IVF and lasix -monitor (9) Hypophosphatemia -finished replacement Right shoulder pain/stiffness X ray reviewed with family. PT.
[2017-02-09] MEDS ORDERED: INSULIN (NOVOLOG) ASPART 100 UNITS/ML 10ML VIAL SQ ONE (17:45)
[2017-02-09] MEDS: INSULIN SLIDING SCALE (NOVOLOG) 1 VIAL SQ SCH (18:13)
[2017-02-09] MEDS: ATORVASTATIN CA 10 MG TABLET (FP) PO SCH (22:08)
[2017-02-10] MEDS ORDERED: PT OWN MED DRAWER 7, Y5N ONE ×5 (01:25→21:49)
[2017-02-10] MEDS: CEFEPIME 2 GM in DEXTROSE 5%-WATER - 100 ML IVPB SCH ×2 (01:54→10:27)
[2017-02-10] MEDS: ACETAMINOPHEN 325 MG TABLET (FP) PO PRN (06:20)
[2017-02-10] MEDS: IBRUTINIB PO SCH (06:25)
[2017-02-10] MEDS: INSULIN SLIDING SCALE (NOVOLOG) 1 VIAL SQ SCH ×2 (06:28→18:32)
[2017-02-10] MEDS: ALBUTEROL SO4 0.083% IH SOL 2.5 MG/3 ML VIAL.NEB. NEB SCH ×3 (07:26→18:30)
[2017-02-10 08:18] LABS: MCH 28.2 pg (25.7-33.7); MCHC 33.8 g/dl (32.0-35.9); MEAN CELL VOLUME 83.5 fl (80-96); MEAN PLT VOLUME 8.5 fl (7.5-11.1); PLATELET COUNT 165 K/MM3 (134-434); RDW 16.5 % (11.9-15.9); WHITE BLOOD COUNT 13.7 K/mm3 (4.0-10.0)
[2017-02-10 08:44] LABS: ALBUMIN 2.4 g/dl (3.4-5.0); ANION GAP 9 (8-16); BILIRUBIN,TOTAL 0.5 mg/dL (0.2-1.0); CALCIUM 9.3 mg/dL (8.5-10.1); CO2 31 mmol/L (21-32); GLUCOSE,RANDOM 178 mg/dL (74-106); SGOT/AST 30 U/L (15-37); SGPT/ALT 44 U/L (12-78); TOT PROT 5.2 g/dl (6.4-8.2)
[2017-02-10 08:45] LABS: ALK PHOS 60 U/L (45-117)
[2017-02-10] MEDS: TAMSULOSIN HCL 0.4 MG CAP.ER.24H (FP) PO SCH (09:13)
[2017-02-10] MEDS: QUINAPRIL HCL 40 MG TABLET (FP) PO SCH (10:27)
[2017-02-10] MEDS: predniSONE 20 MG TABLET (UD) PO SCH (10:27)
[2017-02-10] MEDS: METOPROLOL SUCCINATE 50 MG TAB.SR.24H (FP) PO SCH (10:27)
[2017-02-10] MEDS: PANTOPRAZOLE 40 MG TABLET (FP) PO SCH (10:27)
[2017-02-10] MEDS: amLODIPine BESYLATE 5 MG TABLET (FP) PO SCH (10:28)
[2017-02-10] MEDS: ENOXAPARIN NA (PORCINE) 40 MG/0.4 ML DISP.SYRIN SQ SCH (10:28)
[2017-02-10] MEDS: MAGNESIUM OXIDE 400 MG TABLET (FP) PO SCH ×2 (10:28→21:45)
[2017-02-10] MEDS: ASPIRIN 81 MG CHEWABLE TABLETS PO SCH (10:29)
[2017-02-10 10:38] LABS: METAMYELOCYTE 5 % (0-2); PLATELET ESTIMATE ADEQUATE (NORMAL)
[2017-02-10] MEDS: AZITHROMYCIN IVPB 250 ML IVPB SCH (11:47)
--- NOTE | 2017-02-10 12:04 | PN ---
Progress Note, Physician History of Present Illness: Dyspnea worse than yesterday, denies cough or chest pain. - Current Medication List Current Medications: Active Medications Acetaminophen (Tylenol -) 650 mg PO Q6H PRN PRN Reason: FEVER OR PAIN Last Admin: 02/10/17 06:20 Dose: 650 mg Albuterol Sulfate (Ventolin 0.083% Nebulizer Soln -) 1 amp NEB QIDR [facility] Last Admin: 02/10/17 11:07 Dose: 1 amp Amlodipine Besylate (Norvasc -) 5 mg PO DAILY [facility] Last Admin: 02/10/17 10:28 Dose: 5 mg Aspirin (Asa -) 81 mg PO DAILY [facility] Last Admin: 02/10/17 10:29 Dose: 81 mg Atorvastatin Calcium (Lipitor -) 10 mg PO HS [facility] Last Admin: 02/09/17 22:08 Dose: 10 mg Enoxaparin Sodium (Lovenox -) 40 mg SQ DAILY [facility] Last Admin: 02/10/17 10:28 Dose: 40 mg Azithromycin (Zithromax 500mg Ivpb (Pre-Docked)) 250 mls @ 250 mls/hr IVPB DAILY [facility] Last Admin: 02/10/17 11:47 Dose: 250 mls/hr Cefepime HCl 2 gm/ Dextrose 100 mls @ 200 mls/hr IVPB Q8H-IV [facility] Last Admin: 02/10/17 10:27 Dose: 200 mls/hr Insulin Aspart (Novolog Vial Sliding Scale -) 1 vial SQ BIDAC [facility] PRN Reason: Protocol Last Admin: 02/10/17 06:28 Dose: 2 units Magnesium Oxide (Mag-Ox -) 400 mg PO BID [facility] Last Admin: 02/10/17 10:28 Dose: 400 mg Metoprolol Succinate (Toprol Xl -) 50 mg PO DAILY [facility] Last Admin: 02/10/17 10:27 Dose: 50 mg Non-Formulary Medication (Ibrutinib [Imbruvica]) 0 mg PO DAILY@0700 [facility] Last Admin: 02/10/17 06:25 Dose: 420 mg Pantoprazole Sodium (Protonix -) 40 mg PO DAILY [facility] Last Admin: 02/10/17 10:27 Dose: 40 mg Prednisone (Deltasone -) 40 mg PO DAILY [facility] Last Admin: 02/10/17 10:27 Dose: 40 mg Quinapril HCl (Accupril -) 40 mg PO DAILY [facility] Last Admin: 02/10/17 10:27 Dose: 40 mg Tamsulosin HCl (Flomax -) 0.4 mg PO DAILY@0830 [facility] Last Admin: 02/10/17 09:13 Dose: 0.4 mg - Objective Vital Signs: Vital Signs Temperature 98.8 F 02/10/17 09:56 Pulse Rate 91 H 02/10/17 12:01 Respiratory Rate 24 02/10/17 12:01 Blood Pressure 113/58 02/10/17 12:01 O2 Sat by Pulse Oximetry (%) 93 L 02/10/17 10:56 Constitutional: Yes: No Distress, Calm Neck: Yes: Supple Cardiovascular: Yes: Regular Rate and Rhythm Respiratory: Yes: Regular, Diminished, On Nasal O2, Rhonchi, SOB Gastrointestinal: Yes: Normal Bowel Sounds, Soft Edema: Yes Edema: LLE: Trace, RLE: Trace Labs: CBC, BMP 02/10/17 06:35 02/10/17 06:40 Problem List - Problems (1) Acute respiratory failure Code(s): J96.00 - ACUTE RESPIRATORY FAILURE, UNSP W HYPOXIA OR HYPERCAPNIA (2) Ascending aortic aneurysm Code(s): I71.2 - THORACIC AORTIC ANEURYSM, WITHOUT RUPTURE (3) CKD (chronic kidney disease) Code(s): N18.9 - CHRONIC KIDNEY DISEASE, UNSPECIFIED Qualifiers: Chronic kidney disease stage: stage 2 (mild) Qualified Code(s): N18.2 - Chronic kidney disease, stage 2 (mild) (4) CLL (chronic lymphocytic leukemia) Code(s): C91.10 - CHRONIC LYMPHOCYTIC LEUK OF B-CELL TYPE NOT ACHIEVE REMIS (5) Hx of CABG Code(s): Z95.1 - PRESENCE OF AORTOCORONARY BYPASS GRAFT (6) Pneumonia, community acquired Code(s): J18.9 - PNEUMONIA, UNSPECIFIED ORGANISM (7) CAD (coronary artery disease) Code(s): I25.10 - ATHSCL HEART DISEASE OF [place] CORONARY ARTERY W/O ANG PCTRS Qualifiers: Coronary Disease-Associated Artery/Lesion type: [place] artery [place] vs. transplanted heart: [place] heart Associated angina: without angina Qualified Code(s): I25.10 - Atherosclerotic heart disease of [place] coronary artery without angina pectoris (8) HLD (hyperlipidemia) Code(s): E78.5 - HYPERLIPIDEMIA, UNSPECIFIED Qualifiers: Hyperlipidemia type: pure hypercholesterolemia Qualified Code(s): E78.00 - Pure hypercholesterolemia, unspecified; E78.0 - Pure hypercholesterolemia (9) HTN (hypertension) Code(s): I10 - ESSENTIAL (PRIMARY) HYPERTENSION Qualifiers: Hypertension type: essential hypertension Qualified Code(s): I10 - Essential (primary) hypertension (10) Hypokalemia Code(s): E87.6 - HYPOKALEMIA (11) 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 heart failure Code(s): I51.9 - HEART DISEASE, UNSPECIFIED Assessment/Plan 02/03/2017 Normal biventricular size and fxn, mild [place], mild [place] 1. Acute hypoxic respiratory failure due to community acquired pneumonia 2. Coronary artery disease status post CABG, angina pectoris 3. Diastolic dysfunction 4. Hypertension 5. Hypercholesterolemia 6. Ascending thoracic aortic aneurysm 7. CLL 8. Hypokalemia and hypercalcemia 9. Anemia 10. CKD 11. Lung nodule PLAN: 1. Continue empiric antibiotic coverage, oral steroid taper, O2 and nebulizer treatment, check CXR 2. Continue Metoprolol ER 50 qd, Amlodipine 5 qd and Accupril 40 qd 3. Continue Atorvastatin 10 qhs (previously was on Vytorin) 4. Continue ASA 81 qd 5. Continue Imbruvica for CLL 6. Ascending aortic aneurysm can be followed as outpatient 7. K supplement and monitor electrolytes 8. DVT and GI prophylaxis 9. Will need outpt f/u of chest imaging to ensure resolution of infiltrate and lung nodule
[2017-02-10] MEDS ORDERED: POTASSIUM CHLORIDE TABS 20 MEQ TABLET.ER (FP) PO ONE (12:30)
[2017-02-10] MEDS ORDERED: ALBUTEROL SO4 0.083% IH SOL 2.5 MG/3 ML VIAL.NEB. NEB PRN (14:06)
--- NOTE | 2017-02-10 14:06 | PN ---
Progress Note, Physician History of Present Illness: pulmonary alert,c/o nausea,increased chest congestion - Current Medication List Current Medications: Active Medications Acetaminophen (Tylenol -) 650 mg PO Q6H PRN PRN Reason: FEVER OR PAIN Last Admin: 02/10/17 06:20 Dose: 650 mg Albuterol Sulfate (Ventolin 0.083% Nebulizer Soln -) 1 amp NEB QIDR [facility] Last Admin: 02/10/17 11:07 Dose: 1 amp Amlodipine Besylate (Norvasc -) 5 mg PO DAILY [facility] Last Admin: 02/10/17 10:28 Dose: 5 mg Aspirin (Asa -) 81 mg PO DAILY [facility] Last Admin: 02/10/17 10:29 Dose: 81 mg Atorvastatin Calcium (Lipitor -) 10 mg PO HS [facility] Last Admin: 02/09/17 22:08 Dose: 10 mg Enoxaparin Sodium (Lovenox -) 40 mg SQ DAILY [facility] Last Admin: 02/10/17 10:28 Dose: 40 mg Azithromycin (Zithromax 500mg Ivpb (Pre-Docked)) 250 mls @ 250 mls/hr IVPB DAILY [facility] Last Admin: 02/10/17 11:47 Dose: 250 mls/hr Cefepime HCl 2 gm/ Dextrose 100 mls @ 200 mls/hr IVPB Q8H-IV [facility] Last Admin: 02/10/17 10:27 Dose: 200 mls/hr Insulin Aspart (Novolog Vial Sliding Scale -) 1 vial SQ BIDAC [facility] PRN Reason: Protocol Last Admin: 02/10/17 06:28 Dose: 2 units Magnesium Oxide (Mag-Ox -) 400 mg PO BID [facility] Last Admin: 02/10/17 10:28 Dose: 400 mg Metoprolol Succinate (Toprol Xl -) 50 mg PO DAILY [facility] Last Admin: 02/10/17 10:27 Dose: 50 mg Non-Formulary Medication (Ibrutinib [Imbruvica]) 0 mg PO DAILY@0700 [facility] Last Admin: 02/10/17 06:25 Dose: 420 mg Pantoprazole Sodium (Protonix -) 40 mg PO DAILY [facility] Last Admin: 02/10/17 10:27 Dose: 40 mg Prednisone (Deltasone -) 40 mg PO DAILY [facility] Last Admin: 02/10/17 10:27 Dose: 40 mg Quinapril HCl (Accupril -) 40 mg PO DAILY [facility] Last Admin: 02/10/17 10:27 Dose: 40 mg Tamsulosin HCl (Flomax -) 0.4 mg PO DAILY@0830 [facility] Last Admin: 02/10/17 09:13 Dose: 0.4 mg - Objective Vital Signs: Vital Signs Temperature 98.8 F 02/10/17 09:56 Pulse Rate 91 H 02/10/17 12:01 Respiratory Rate 24 02/10/17 12:01 Blood Pressure 113/58 02/10/17 12:01 O2 Sat by Pulse Oximetry (%) 93 L 02/10/17 10:56 Constitutional: Yes: Well Nourished, Calm Eyes: Yes: WNL HENT: Yes: WNL Neck: Yes: WNL Cardiovascular: Yes: Regular Rate and Rhythm, S1, S2 Respiratory: Yes: Rhonchi (scattered kenneth rhonchi) Gastrointestinal: Yes: Normal Bowel Sounds, Soft Extremities: Yes: WNL Edema: No Labs: CBC, BMP 02/10/17 06:35 02/10/17 06:40 Assessment/Plan ASSESSMENT AND PLAN: Acute Hypoxic Respiratory Failure Pneumonia clinically improving h/o CLL CAD s/p CABG HTN Hypercholesterolemia CKD Lung Nodule - prednisone - lasix as needed - chest x-ray - inhaled bronchodilators - antibiotics per ID - DVT prophylaxis - home o2 - will need outpt f/u of chest imaging to ensure resolution of infiltrate and lung nodule Problem List - Problems (1) Pneumonia, community acquired Code(s): J18.9 - PNEUMONIA, UNSPECIFIED ORGANISM (2) CAD (coronary artery disease) Code(s): I25.10 - ATHSCL HEART DISEASE OF [place] CORONARY ARTERY W/O ANG PCTRS Qualifiers: Coronary Disease-Associated Artery/Lesion type: [place] artery [place] vs. transplanted heart: [place] heart Associated angina: without angina Qualified Code(s): I25.10 - Atherosclerotic heart disease of [place] coronary artery without angina pectoris (3) HLD (hyperlipidemia) Code(s): E78.5 - HYPERLIPIDEMIA, UNSPECIFIED Qualifiers: Hyperlipidemia type: pure hypercholesterolemia Qualified Code(s): E78.00 - Pure hypercholesterolemia, unspecified; E78.0 - Pure hypercholesterolemia (4) HTN (hypertension) Code(s): I10 - ESSENTIAL (PRIMARY) HYPERTENSION Qualifiers: Hypertension type: essential hypertension Qualified Code(s): I10 - Essential (primary) hypertension (5) CLL (chronic lymphocytic leukemia) Code(s): C91.10 - CHRONIC LYMPHOCYTIC LEUK OF B-CELL TYPE NOT ACHIEVE REMIS
--- NOTE | 2017-02-10 14:13 | PN ---
Progress Note, Physician History of Present Illness: Temp 100.7 noted C/O nausea Looks very weak today No c/o chest pain/ cough No c/o fever or chills - Current Medication List Current Medications: Active Medications Acetaminophen (Tylenol -) 650 mg PO Q6H PRN PRN Reason: FEVER OR PAIN Last Admin: 02/10/17 06:20 Dose: 650 mg Albuterol Sulfate (Ventolin 0.083% Nebulizer Soln -) 1 amp NEB QIDR [facility] Last Admin: 02/10/17 11:07 Dose: 1 amp Albuterol Sulfate (Ventolin 0.083% Nebulizer Soln -) 1 amp NEB Q4H PRN PRN Reason: SHORT OF BREATH/WHEEZING Amlodipine Besylate (Norvasc -) 5 mg PO DAILY [facility] Last Admin: 02/10/17 10:28 Dose: 5 mg Aspirin (Asa -) 81 mg PO DAILY [facility] Last Admin: 02/10/17 10:29 Dose: 81 mg Atorvastatin Calcium (Lipitor -) 10 mg PO HS [facility] Last Admin: 02/09/17 22:08 Dose: 10 mg Enoxaparin Sodium (Lovenox -) 40 mg SQ DAILY [facility] Last Admin: 02/10/17 10:28 Dose: 40 mg Azithromycin (Zithromax 500mg Ivpb (Pre-Docked)) 250 mls @ 250 mls/hr IVPB DAILY [facility] Last Admin: 02/10/17 11:47 Dose: 250 mls/hr Cefepime HCl 2 gm/ Dextrose 100 mls @ 200 mls/hr IVPB Q8H-IV [facility] Last Admin: 02/10/17 10:27 Dose: 200 mls/hr Insulin Aspart (Novolog Vial Sliding Scale -) 1 vial SQ BIDAC [facility] PRN Reason: Protocol Last Admin: 02/10/17 06:28 Dose: 2 units Magnesium Oxide (Mag-Ox -) 400 mg PO BID [facility] Last Admin: 02/10/17 10:28 Dose: 400 mg Metoprolol Succinate (Toprol Xl -) 50 mg PO DAILY [facility] Last Admin: 02/10/17 10:27 Dose: 50 mg Non-Formulary Medication (Ibrutinib [Imbruvica]) 0 mg PO DAILY@0700 [facility] Last Admin: 02/10/17 06:25 Dose: 420 mg Pantoprazole Sodium (Protonix -) 40 mg PO DAILY [facility] Last Admin: 02/10/17 10:27 Dose: 40 mg Prednisone (Deltasone -) 40 mg PO DAILY [facility] Last Admin: 02/10/17 10:27 Dose: 40 mg Quinapril HCl (Accupril -) 40 mg PO DAILY [facility] Last Admin: 02/10/17 10:27 Dose: 40 mg Tamsulosin HCl (Flomax -) 0.4 mg PO DAILY@0830 [facility] Last Admin: 02/10/17 09:13 Dose: 0.4 mg - Objective Vital Signs: Vital Signs Temperature 98.8 F 02/10/17 09:56 Pulse Rate 91 H 02/10/17 12:01 Respiratory Rate 24 02/10/17 12:01 Blood Pressure 113/58 02/10/17 12:01 O2 Sat by Pulse Oximetry (%) 93 L 02/10/17 10:56 Constitutional: Yes: No Distress Eyes: Yes: Conjunctiva Clear Cardiovascular: Yes: Regular Rate and Rhythm, S1, S2 Respiratory: Yes: Diminished Gastrointestinal: Yes: Normal Bowel Sounds, Soft. No: Tenderness Labs: CBC, BMP 02/10/17 06:35 02/10/17 06:40 Assessment/Plan Bilateral pneumonia Recurrent fever CLL PCN allergy Will repeat blood c/s. Obtain follow up CXR Continue empiric zithromax/ cefepime Discussed with pulmonary
[2017-02-10] MEDS ORDERED: MEROPENEM 500 MG VIAL (RESTRICTED TO ID) IVPB SCH (14:45)
[2017-02-10 16:19] LABS: ARTERIAL BLD GAS O2 SATURATION 95.7 % (90-98.9); ARTERIAL BLOOD GAS BASE EXCESS 6.1 meq/l (-2-2); ARTERIAL BLOOD GAS HCO3 29.5 meq/L (22-26); ARTERIAL BLOOD GAS PO2 74.7 mmHg (70-100); ARTERIAL BLOOD GAS pH 7.49 (7.35-7.45)
[2017-02-10 16:20] LABS: ALLENS TEST POSITIVE; ART PUNCT SITE RIGHT RADIAL; LPM/O2% 3L; PT. ON O2? YES; TYPE OF O2 N/C
[2017-02-10] MEDS: VANCOMYCIN 1 GRAM (PRE-DOCKED) 250 ML IVPB SCH ×2 (16:30→19:42)
--- NOTE | 2017-02-10 16:35 | PN ---
Progress Note, Physician Chief Complaint: Mr Saucedo says he is not feeling well. He says he is ready to go home because he is not feeling better. Says he is still short of breath. Denies chest pain and nausea/vomiting. Spoke with daughter who says he complains of weakness in his right hand that started yesterday, now cannot hold anything. - Current Medication List Current Medications: Active Medications Acetaminophen (Tylenol -) 650 mg PO Q6H PRN PRN Reason: FEVER OR PAIN Last Admin: 02/10/17 06:20 Dose: 650 mg Albuterol Sulfate (Ventolin 0.083% Nebulizer Soln -) 1 amp NEB QIDR [facility] Last Admin: 02/10/17 11:07 Dose: 1 amp Albuterol Sulfate (Ventolin 0.083% Nebulizer Soln -) 1 amp NEB Q4H PRN PRN Reason: SHORT OF BREATH/WHEEZING Amlodipine Besylate (Norvasc -) 5 mg PO DAILY [facility] Last Admin: 02/10/17 10:28 Dose: 5 mg Aspirin (Asa -) 81 mg PO DAILY [facility] Last Admin: 02/10/17 10:29 Dose: 81 mg Atorvastatin Calcium (Lipitor -) 10 mg PO HS [facility] Last Admin: 02/09/17 22:08 Dose: 10 mg Enoxaparin Sodium (Lovenox -) 40 mg SQ DAILY [facility] Last Admin: 02/10/17 10:28 Dose: 40 mg Vancomycin HCl (Vancomycin (Pre-Docked)) 250 mls @ 166.667 mls/hr IVPB DAILY@ 1600 [facility] Meropenem 500 mg/ Dextrose 100 mls @ 100 mls/hr IVPB Q8H-IV [facility] Insulin Aspart (Novolog Vial Sliding Scale -) 1 vial SQ BIDAC [facility] PRN Reason: Protocol Last Admin: 02/10/17 06:28 Dose: 2 units Magnesium Oxide (Mag-Ox -) 400 mg PO BID [facility] Last Admin: 02/10/17 10:28 Dose: 400 mg Metoprolol Succinate (Toprol Xl -) 50 mg PO DAILY [facility] Last Admin: 02/10/17 10:27 Dose: 50 mg Non-Formulary Medication (Ibrutinib [Imbruvica]) 0 mg PO DAILY@0700 [facility] Last Admin: 02/10/17 06:25 Dose: 420 mg Pantoprazole Sodium (Protonix -) 40 mg PO DAILY [facility] Last Admin: 02/10/17 10:27 Dose: 40 mg Prednisone (Deltasone -) 40 mg PO DAILY [facility] Last Admin: 02/10/17 10:27 Dose: 40 mg Quinapril HCl (Accupril -) 40 mg PO DAILY [facility] Last Admin: 02/10/17 10:27 Dose: 40 mg Tamsulosin HCl (Flomax -) 0.4 mg PO DAILY@0830 [facility] Last Admin: 02/10/17 09:13 Dose: 0.4 mg - Objective Vital Signs: Vital Signs Temperature 98.6 F 02/10/17 16:22 Pulse Rate 80 02/10/17 16:22 Respiratory Rate 24 02/10/17 16:22 Blood Pressure 101/61 02/10/17 16:22 O2 Sat by Pulse Oximetry (%) 88 L 02/10/17 11:00 Constitutional: Yes: Well Nourished, No Distress, Calm Cardiovascular: Yes: Regular Rate and Rhythm. No: Gallop, Murmur, Rub Respiratory: Yes: Regular, CTA Bilaterally. No: Rales, Rhonchi, Wheezes Gastrointestinal: Yes: Normal Bowel Sounds, Soft. No: Distention, Tenderness Extremities: Yes: WNL Edema: Yes Edema: LLE: Trace, RLE: Trace Labs: CBC, BMP 02/10/17 06:35 02/10/17 06:40 Problem List - Problems (1) Acute respiratory failure Code(s): J96.00 - ACUTE RESPIRATORY FAILURE, UNSP W HYPOXIA OR HYPERCAPNIA (2) Pneumonia, community acquired Code(s): J18.9 - PNEUMONIA, UNSPECIFIED ORGANISM (3) CKD (chronic kidney disease) Code(s): N18.9 - CHRONIC KIDNEY DISEASE, UNSPECIFIED Qualifiers: Chronic kidney disease stage: stage 2 (mild) Qualified Code(s): N18.2 - Chronic kidney disease, stage 2 (mild) (4) CLL (chronic lymphocytic leukemia) Code(s): C91.10 - CHRONIC LYMPHOCYTIC LEUK OF B-CELL TYPE NOT ACHIEVE REMIS (5) CAD (coronary artery disease) Code(s): I25.10 - ATHSCL HEART DISEASE OF [place] CORONARY ARTERY W/O ANG PCTRS Qualifiers: Coronary Disease-Associated Artery/Lesion type: [place] artery [place] vs. transplanted heart: [place] heart Associated angina: without angina Qualified Code(s): I25.10 - Atherosclerotic heart disease of [place] coronary artery without angina pectoris (6) HLD (hyperlipidemia) Code(s): E78.5 - HYPERLIPIDEMIA, UNSPECIFIED Qualifiers: Hyperlipidemia type: pure hypercholesterolemia Qualified Code(s): E78.00 - Pure hypercholesterolemia, unspecified; E78.0 - Pure hypercholesterolemia (7) HTN (hypertension) Code(s): I10 - ESSENTIAL (PRIMARY) HYPERTENSION Qualifiers: Hypertension type: essential hypertension Qualified Code(s): I10 - Essential (primary) hypertension (8) Hypercalcemia Code(s): E83.52 - HYPERCALCEMIA (9) Hypophosphatemia Code(s): E83.39 - OTHER DISORDERS OF PHOSPHORUS METABOLISM Assessment/Plan (1) Acute respiratory failure -case d/w pulmonary -tapering steroids -continues to need oxygen (2) Pneumonia, community acquired Assessment/Plan: -febrile today -case d/w ID who will see in consultation Code(s): J18.9 - PNEUMONIA, UNSPECIFIED ORGANISM (3) CKD (chronic kidney disease) Assessment/Plan: -at baseline -monitor Code(s): N18.9 - CHRONIC KIDNEY DISEASE, UNSPECIFIED Qualifiers: Chronic kidney disease stage: stage 2 (mild) Qualified Code(s): N18.2 - Chronic kidney disease, stage 2 (mild) (4) CLL (chronic lymphocytic leukemia) Assessment/Plan: -continue home ibrutinib -oncology following Code(s): C91.10 - CHRONIC LYMPHOCYTIC LEUK OF B-CELL TYPE NOT ACHIEVE REMIS (5) CAD (coronary artery disease) Assessment/Plan: -quiescent, no chest pain -continue home regimen Code(s): I25.10 - ATHSCL HEART DISEASE OF [place] CORONARY ARTERY W/O ANG PCTRS (6) HLD (hyperlipidemia) Assessment/Plan: -continue statin Code(s): E78.5 - HYPERLIPIDEMIA, UNSPECIFIED (7) HTN (hypertension) Assessment/Plan: -controlled -continue norvasc, toprol xl, and quinapril Code(s): I10 - ESSENTIAL (PRIMARY) HYPERTENSION (8) Hypercalcemia -improved and stable -off IVF and lasix -monitor (9) Hand weakness -present for over 24 hours -will check head CT -on aspirin and lovenox, but will evaluate for acute CVA -if positive, not a candidate for TPA secondary to time frame
[2017-02-10] MEDS: MEROPENEM 500 MG in DEXTROSE 5%-WATER - 100 ML IVPB SCH ×2 (18:33→20:08)
[2017-02-10] MEDS ORDERED: ONDANSETRON 4 MG/2 ML VIAL IVPB PRN (19:29)
[2017-02-10] MEDS ORDERED: ASPIRIN 81 MG CHEWABLE TABLETS PO ONE (20:00)
[2017-02-10] MEDS: ATORVASTATIN CA 40 MG TABLET (FP) PO SCH (21:45)
[2017-02-11] MEDS: MEROPENEM 500 MG in DEXTROSE 5%-WATER - 100 ML IVPB SCH ×3 (02:14→18:16)
[2017-02-11] MEDS: ALBUTEROL SO4 0.083% IH SOL 2.5 MG/3 ML VIAL.NEB. NEB SCH ×5 (05:43→23:15)
[2017-02-11] MEDS ORDERED: PT OWN MED DRAWER 7, Y5N ONE (06:33)
[2017-02-11] MEDS: IBRUTINIB PO SCH (06:36)
[2017-02-11] MEDS: INSULIN SLIDING SCALE (NOVOLOG) 1 VIAL SQ SCH ×2 (06:36→18:33)
[2017-02-11 08:16] LABS: MCHC 33.5 g/dl (32.0-35.9); MEAN CELL VOLUME 83.5 fl (80-96); MEAN PLT VOLUME 8.8 fl (7.5-11.1); PLATELET COUNT 140 K/MM3 (134-434); RDW 16.6 % (11.9-15.9); WHITE BLOOD COUNT 12.9 K/mm3 (4.0-10.0)
[2017-02-11 08:38] LABS: CHOLESTEROL 106 mg/dL (50-200); LDL CHOLESTEROL (ONLY SJRH) 36 mg/dL (5-100)
[2017-02-11 08:47] LABS: ANION GAP 12 (8-16); CALCIUM 8.6 mg/dL (8.5-10.1); CO2 29 mmol/L (21-32); CREATININE 1.3 mg/dL (0.7-1.3); GLUCOSE,RANDOM 183 mg/dL (74-106); MAGNESIUM 2.1 mg/dL (1.8-2.4); PHOSPHOROUS 1.6 mg/dL (2.5-4.9)
--- NOTE | 2017-02-11 08:50 | CON.NEURO ---
Consult - History of Present Illness History of Present Illness: 76 year old male history of CAD, htn , hyperlipidemia admitted for pnemonia . He was ready to be discharged and he complained of right arm weaknes sand on ct scan found to have left parietofrontal infarct. Patient on aspirin and lipitor 10 mg once a day. He was on fifth floor and was transferred to [facility]. He is able to swallo and his blood pressure today is 127/64. - Past Medical History Cardio/Vascular: Yes: CAD, HTN, Hyperlipdemia Gastrointestinal: Yes: Gastritis, GERD, Inflamatory Bowel Disease, Peptic Ulcer Disease, Other (Duodenal adenoma, Pancreatic cyst, S/P Infectious colitis on ) Renal/: Yes: Renal Inusuff, BPH, Other (hypercalcemia) - Past Surgical History Past Surgical History: Yes: Appendectomy, CABG, Cholecystectomy - Alcohol/Substance Use Hx Alcohol Use: No History of Substance Use: reports: None - Smoking History Smoking history: Never smoked Have you smoked in the past 12 months: No Aproximately how many cigarettes per day: 0 - Social History ADL: Independent History of Recent Travel: No Home Medications - Allergies Allergies/Adverse Reactions: Allergies Allergy/AdvReac Type Severity Reaction Status Date / Time piperacillin sodium AdvReac Intermediate Itching Verified 01/29/17 13:57 [From Zosyn] tazobactam sodium AdvReac Intermediate Itching Verified 01/29/17 13:57 [From Zosyn] - Home Medications Home Medications: Ambulatory Orders Aspirin [ASA -] 81 mg PO DAILY 05/07/13 Pravastatin Sodium [Pravachol -] 20 mg PO HS 05/10/13 Silodosin [Rapaflo] 8 mg PO DAILY 05/10/13 Metoprolol Succinate [Toprol Xl] 50 mg PO DAILY 09/28/15 Amlodipine Besylate [Norvasc -] 5 mg PO DAILY #30 tablet 09/13/16 Magnesium Oxide [Mag-Ox -] 400 mg PO BID 01/29/17 Prednisone [Deltasone] 10 mg PO HS 01/29/17 Quinapril HCl [Accupril] 40 mg PO DAILY 01/29/17 Ibrutinib [Imbruvica] 420 mg PO DAILY 01/30/17 Prednisone 5 mg PO DAILY 01/30/17 Family Disease History - Family Disease History Family Disease History: Heart Disease: Father Physical Exam-Neuro Vital Signs: Vital Signs Temperature 98.8 F 02/11/17 06:00 Pulse Rate 101 H 02/11/17 06:00 Respiratory Rate 16 02/11/17 06:00 Blood Pressure 124/68 02/11/17 06:00 O2 Sat by Pulse Oximetry (%) 95 02/10/17 21:00 Labs: CBC, BMP 02/11/17 05:55 NIH Stroke Scale - Total Score NIH Stroke Scale Score: 0 Imaging - Results Cat Scan: Image Reviewed Assessment/Plan cc right sided arm and leg weakness since february 10 76 year old male history of CAD, htn , hyperlipidemia admitted for pnemonia . He was ready to be discharged and he complained of right arm weaknes sand on ct scan found to have left parietofrontal infarct. Patient on aspirin and lipitor 10 mg once a day. He was on fifth floor and was transferred to [facility]. He is able to swallo and his blood pressure today is 127/64. 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 Plan -- PT , DVT prophylaxis, speech eval - mri of brain , carotid ultrasound - swich aspirin to plavix if ok with primary - start lipitor 40 mg once a day -stroke education thanks for consult bee bartlett Neurologist
--- NOTE | 2017-02-11 09:34 | CONSULT ---
Admitting History and Physical - Past Medical History Cardiovascular: Yes: CAD, HTN, Hyperlipdemia Gastrointestinal: Yes: Gastritis, GERD, Inflamatory Bowel Disease, Peptic Ulcer Disease, Other (Duodenal adenoma, Pancreatic cyst, S/P Infectious colitis on ) Renal/: Yes: Renal Inusuff, BPH, Other (hypercalcemia) Heme/Onc: Yes: Other (Small lymphocytic Lymphoma, CLL, Polycythemia Vera ) - Past Surgical History Past Surgical History: Yes: Appendectomy, CABG, Cholecystectomy - Smoking History Smoking history: Never smoked Have you smoked in the past 12 months: No Aproximately how many cigarettes per day: 0 - Alcohol/Substance Use Hx Alcohol Use: No History of Substance Use: reports: None - Social History ADL: Independent History of Recent Travel: No History - Admission Reason For Visit: COMMUNITY AQUIRED PNEUMONIA - Hearing Hearing: Normal Speech Evaluation - Communication Primary Language: UNKNOWN Secondary Language: [place] Communication: Yes: Simple Responses (able to respond to y / n questions, answers biographical information), Dysarthria Oral Expression Ability: Yes: Mild Impairment - Speech Production Dysarthria: Yes: Flaccid Apraxia: No Able to Make Needs Known: Yes: WNL Intelligibility: Yes: Mildly Impaired - Speech Characteristics Voice Loudness: Moderately Soft/Quiet Voice Pitch: Yes: Mildly Low Voice Phonatory-based Quality: Yes: Breathy, Weak Speech Pattern: Normal Articulation: Yes: Precise Rate of Speech: Too Slow Voice, Other Observations: Yes: Mouth Breathing Voice Comment: Reduced intensity and pitch observed - Language/Auditory Comprehension Follows: Yes: 1 Stage Simple Commands (WFL), 2 Stage Simple Commands (WFL) Observation: Able to respond to yes/no queries: Yes, Yes/No Confusion: No, Comprehends Conversational Speech: Yes, Benefits from Slow Speech: No, Benefits from Repetiton: No (required visual cues), Benefits from Increased Volume of Speech: Yes - Language/Verbal Expression Able to Respond to Simple Queries: Yes: WNL Able to Communicate Wants and Needs: Yes: Mildly Impaired Functional Communication Status: Yes: WNL Aware of Errors: Yes Attempts to Correct Errors: Yes Use of Gestures: Yes Written Expression: Not examined Oral Expression: function for simple responses. Reading Comprehension: Not examined Calculations: Not examined - Memory/Perception intermediate designer Memory: Yes: Mildly Impaired Short Term Memory: Yes: Mildly Impaired - Swallow Evaluation/Bedside Assessment Current Nutritional Intake: Regular, Thin Liquids Oral Secretions: Yes: WFL Tracheostomy Present: No Patient on Ventilator: No Dentition: Yes: Adequate Facial Symmetry at Rest: Facial Droop Right (mild facial droop observed) Facial Symmetry on Retraction: Facial Droop Right Facial Movement: Controlled Sensation: Reduced Right Facial Comment: right side minimal weakness noted but WFL for speech and swallowing purpose Jaw Position: Closed at Rest Against Resistance Opening: Normal Against Resistance Closing: Normal Pucker Lips: Normal Lips, Comment: WFL for speech and swallowing purposes Lingual Movement: Normal Lingual Speed of Movement: Normal Lingual Movement Strgth Against Opposition: Normal Lingual Comment: WFL for speech and swallowing purposes Soft Palate Description: Normal Color Hard Palate Description: Normal Color Gag Reflex: Strong Bite Reflex: Present Velopharyngeal Movement: Normal Laryngeal Elevation: WFL Laryngeal Movement: Able to Palpate Needs Assistance: Yes Rate of Intake: WFL Bolus Size: WFL Sensation: Bite Reflex Labial Seal: WFL Chewing: Impaired (increased mastication time and bolus formation time.) Oral Prep Time: WFL A-P Transit: Impaired (increased time needed for A-P transport) Pocketing: Clears Independently Timing of Swallow: WFL Odynophagia: Oral (secondary to increase time to form bolus) Coughing/Throat Clear: No Change in Voice: No (voicing was weak before swallow, no changes after the swallow) Other Findings/Remarks: 76 year old male seen at bedside for swallow eval to rule out dysphagia. Pt is minimally verbal (possibly language barrier), and can respond to y/n questions, A&Ox2 cooperative. Pt was scheduled for discharged from [facility] after recovering from PNA when he reported feeling weakness in his right arm. Head CT revealed left parietofrontal infarct. He presents with right side weakness of his upper extremity, mild right facial droop noted. PMHX includes CAD, HTN hyperlipidemia. Vocal quality is characterized as reduced intensity, pitch and somewhat weak, breathy. He demonstrates adequate airway protection at this time. Current diet regular with thin liquids. Pt given po trials of pureed, soft and regular solids with total assistance revealed good acceptance, increase mastication, bolus formation and transport time. Pharyngeal swallows appears timely with no cough, changes in voicing or respiration. Thin liquids trials via cup and straw with total assistance were unremarkable for dysphagia at this time. Recommendations - Speech Evaluation, Impression/Plan Impression: 76 yo male presents with oral prep and oral phase dysphagia for all solids. Pt requires increased time to chew and form a bolus. Pharyngeal swallows appears timely. Vocal quality is also reduced characterized as weak and breathy. Comptometer Operator Goals: tolerate the least restrictive diet consistency without s/s of aspiration. Short Term Goals: tolerate dysphagia whole solids and thin liquids without s/s of aspiration. Recommended Frequency for Therapy: Follow Up PRN - Dysphagia Impressions/Plan Swallowing Skills: Impaired Dysphagia Impressions: Mild Impairment, Risk of Aspiration, Suspect Aspiration *Silent aspiration: cannot be R/O at bedside Dysphagia Treatment Plan: Small Bites, Safe Rate, 1/2 tsp. at a time, Elevate HOB during feed, Other Dysphagia Evaluation Summary: offer sips of liquids for every 2-4 bites of solids. Moniter pulmonary status and nutritional intake. Requires total assistance. Liquids can be offered by straw. Recommendations: Modified Barium Swallow (consider to determine aspiration) - Recommendations Diet Consistency: Dysphagia Whole Medication Administration: Whole with water Liquids: Thin Liquids
--- NOTE | 2017-02-11 09:56 | PN ---
Progress Note, Physician History of Present Illness: Events noted Found to have acute L CVA Awake, lethargic Offers no complaints Afebrile Breathing non-labored Tolerated meropenem without adverse rxn Repeat BC pending - Current Medication List Current Medications: Active Medications Acetaminophen (Tylenol -) 650 mg PO Q6H PRN PRN Reason: FEVER OR PAIN Last Admin: 02/10/17 06:20 Dose: 650 mg Albuterol Sulfate (Ventolin 0.083% Nebulizer Soln -) 1 amp NEB QIDR [facility] Last Admin: 02/11/17 05:43 Dose: 1 amp Albuterol Sulfate (Ventolin 0.083% Nebulizer Soln -) 1 amp NEB Q4H PRN PRN Reason: SHORT OF BREATH/WHEEZING Amlodipine Besylate (Norvasc -) 5 mg PO DAILY [facility] Last Admin: 02/10/17 10:28 Dose: 5 mg Atorvastatin Calcium (Lipitor -) 40 mg PO HS [facility] Last Admin: 02/10/17 21:45 Dose: 40 mg Clopidogrel Bisulfate (Plavix -) 75 mg PO DAILY [facility] Enoxaparin Sodium (Lovenox -) 40 mg SQ DAILY [facility] Last Admin: 02/10/17 10:28 Dose: 40 mg Vancomycin HCl (Vancomycin (Pre-Docked)) 250 mls @ 166.667 mls/hr IVPB DAILY@ 1600 [facility] Last Admin: 02/10/17 19:42 Dose: 166.667 mls/hr Meropenem 500 mg/ Dextrose 100 mls @ 100 mls/hr IVPB Q8H-IV [facility] Last Admin: 02/11/17 02:14 Dose: 100 mls/hr Insulin Aspart (Novolog Vial Sliding Scale -) 1 vial SQ BIDAC [facility] PRN Reason: Protocol Last Admin: 02/11/17 06:36 Dose: Not Given Magnesium Oxide (Mag-Ox -) 400 mg PO BID [facility] Last Admin: 02/10/17 21:45 Dose: 400 mg Metoprolol Succinate (Toprol Xl -) 50 mg PO DAILY [facility] Last Admin: 02/10/17 10:27 Dose: 50 mg Non-Formulary Medication (Ibrutinib [Imbruvica]) 0 mg PO DAILY@0700 [facility] Last Admin: 02/11/17 06:36 Dose: 420 mg Ondansetron HCl (Zofran Injection) 4 mg IVPB Q6H PRN PRN Reason: NAUSEA Pantoprazole Sodium (Protonix -) 40 mg PO DAILY [facility] Last Admin: 02/10/17 10:27 Dose: 40 mg Prednisone (Deltasone -) 40 mg PO DAILY [facility] Last Admin: 02/10/17 10:27 Dose: 40 mg Quinapril HCl (Accupril -) 40 mg PO DAILY [facility] Last Admin: 02/10/17 10:27 Dose: 40 mg Tamsulosin HCl (Flomax -) 0.4 mg PO DAILY@0830 [facility] Last Admin: 02/10/17 09:13 Dose: 0.4 mg - Objective Vital Signs: Vital Signs Temperature 98 F 02/11/17 09:02 Pulse Rate 102 H 02/11/17 09:02 Respiratory Rate 20 02/11/17 09:02 Blood Pressure 153/89 02/11/17 09:02 O2 Sat by Pulse Oximetry (%) 94 L 02/11/17 09:00 Constitutional: Yes: No Distress Eyes: Yes: Conjunctiva Clear Cardiovascular: Yes: Regular Rate and Rhythm, S1, S2 Respiratory: Yes: Diminished Gastrointestinal: Yes: Normal Bowel Sounds, Soft. No: Tenderness Edema: No Neurological: Yes: Other (+ R sided weakness) Labs: CBC, BMP 02/11/17 05:55 02/11/17 05:55 Assessment/Plan Acute L CVA Pneumonia Recurrent fever CLL PCN allergy Await repeat blood c/s. Continue empiric meropenem/ vancomycin Aspiration precautions
[2017-02-11] MEDS ORDERED: QUINAPRIL HCL 20 MG TABLET (FP) ONE (10:01)
[2017-02-11] MEDS: amLODIPine BESYLATE 5 MG TABLET (FP) PO SCH (10:08)
[2017-02-11] MEDS: ENOXAPARIN NA (PORCINE) 40 MG/0.4 ML DISP.SYRIN SQ SCH (10:09)
[2017-02-11] MEDS: MAGNESIUM OXIDE 400 MG TABLET (FP) PO SCH ×2 (10:09→22:46)
[2017-02-11] MEDS: QUINAPRIL HCL 40 MG TABLET (FP) PO SCH (10:09)
[2017-02-11] MEDS: METOPROLOL SUCCINATE 50 MG TAB.SR.24H (FP) PO SCH (10:09)
[2017-02-11] MEDS: predniSONE 20 MG TABLET (UD) PO SCH (10:09)
[2017-02-11] MEDS: PANTOPRAZOLE 40 MG TABLET (FP) PO SCH (10:09)
[2017-02-11] MEDS: TAMSULOSIN HCL 0.4 MG CAP.ER.24H (FP) PO SCH (10:09)
[2017-02-11] MEDS: CLOPIDOGREL BISULFATE 75 MG TABLET (FP) PO SCH (10:09)
--- NOTE | 2017-02-11 10:40 | PN ---
Progress Note, Physician Chief Complaint: Events noted, llethargic Patient was seen and examined today Head CT shows frontoparietal cortical infarct History of Present Illness: Patient was seen and examined on telemetry. Awake, but lethargic. Chart was reviewed Denies chest pain or palpitations. Does not complain of SOB or cough this am Note right sided weakness Speech and swallowing eval noted - Current Medication List Current Medications: Active Medications Acetaminophen (Tylenol -) 650 mg PO Q6H PRN PRN Reason: FEVER OR PAIN Last Admin: 02/10/17 06:20 Dose: 650 mg Albuterol Sulfate (Ventolin 0.083% Nebulizer Soln -) 1 amp NEB QIDR [facility] Last Admin: 02/11/17 05:43 Dose: 1 amp Albuterol Sulfate (Ventolin 0.083% Nebulizer Soln -) 1 amp NEB Q4H PRN PRN Reason: SHORT OF BREATH/WHEEZING Amlodipine Besylate (Norvasc -) 5 mg PO DAILY [facility] Last Admin: 02/11/17 10:08 Dose: 5 mg Atorvastatin Calcium (Lipitor -) 40 mg PO HS [facility] Last Admin: 02/10/17 21:45 Dose: 40 mg Clopidogrel Bisulfate (Plavix -) 75 mg PO DAILY [facility] Last Admin: 02/11/17 10:09 Dose: 75 mg Enoxaparin Sodium (Lovenox -) 40 mg SQ DAILY [facility] Last Admin: 02/11/17 10:09 Dose: 40 mg Vancomycin HCl (Vancomycin (Pre-Docked)) 250 mls @ 166.667 mls/hr IVPB DAILY@ 1600 [facility] Last Admin: 02/10/17 19:42 Dose: 166.667 mls/hr Meropenem 500 mg/ Dextrose 100 mls @ 100 mls/hr IVPB Q8H-IV [facility] Last Admin: 02/11/17 10:10 Dose: 100 mls/hr Insulin Aspart (Novolog Vial Sliding Scale -) 1 vial SQ BIDAC [facility] PRN Reason: Protocol Last Admin: 02/11/17 06:36 Dose: Not Given Magnesium Oxide (Mag-Ox -) 400 mg PO BID [facility] Last Admin: 02/11/17 10:09 Dose: 400 mg Metoprolol Succinate (Toprol Xl -) 50 mg PO DAILY [facility] Last Admin: 02/11/17 10:09 Dose: 50 mg Non-Formulary Medication (Ibrutinib [Imbruvica]) 0 mg PO DAILY@0700 [facility] Last Admin: 02/11/17 06:36 Dose: 420 mg Ondansetron HCl (Zofran Injection) 4 mg IVPB Q6H PRN PRN Reason: NAUSEA Pantoprazole Sodium (Protonix -) 40 mg PO DAILY [facility] Last Admin: 02/11/17 10:09 Dose: 40 mg Prednisone (Deltasone -) 40 mg PO DAILY [facility] Last Admin: 02/11/17 10:09 Dose: 40 mg Quinapril HCl (Accupril -) 40 mg PO DAILY [facility] Last Admin: 02/11/17 10:09 Dose: 40 mg Tamsulosin HCl (Flomax -) 0.4 mg PO DAILY@0830 [facility] Last Admin: 02/11/17 10:09 Dose: 0.4 mg - Objective Vital Signs: Vital Signs Temperature 98 F 02/11/17 09:02 Pulse Rate 104 H 02/11/17 09:55 Respiratory Rate 20 02/11/17 09:02 Blood Pressure 153/89 02/11/17 09:02 O2 Sat by Pulse Oximetry (%) 94 L 02/11/17 09:55 Neck: Yes: Supple Cardiovascular: Yes: Regular Rate and Rhythm, Tachycardia, S1, S2 Respiratory: Yes: Diminished Gastrointestinal: Yes: Normal Bowel Sounds, Soft. No: Tenderness Edema: Yes Edema: LLE: Trace, RLE: Trace Additional Findings/Remarks: Review of System HEENT: No headache, photophobia, blurring of vision CARD: No chest pain, palpitations (+) SOB - improved RESP: (+) cough - improved, sputum production, (-) hemoptysis ABD: No nausea, vomiting, diarrhea, abdominal pain, melena, hematemesis MUSC: No joint pains UROL: No urinary symptoms NEURO: No seizure, syncope Labs: CBC, BMP 02/11/17 05:55 02/11/17 05:55 Problem List - Problems (1) CKD (chronic kidney disease) Code(s): N18.9 - CHRONIC KIDNEY DISEASE, UNSPECIFIED Qualifiers: Chronic kidney disease stage: stage 2 (mild) Qualified Code(s): N18.2 - Chronic kidney disease, stage 2 (mild) (2) CLL (chronic lymphocytic leukemia) Code(s): C91.10 - CHRONIC LYMPHOCYTIC LEUK OF B-CELL TYPE NOT ACHIEVE REMIS (3) Pneumonia, community acquired Code(s): J18.9 - PNEUMONIA, UNSPECIFIED ORGANISM (4) CAD (coronary artery disease) Code(s): I25.10 - ATHSCL HEART DISEASE OF [place] CORONARY ARTERY W/O ANG PCTRS Qualifiers: Coronary Disease-Associated Artery/Lesion type: [place] artery [place] vs. transplanted heart: [place] heart Associated angina: without angina Qualified Code(s): I25.10 - Atherosclerotic heart disease of [place] coronary artery without angina pectoris (5) HLD (hyperlipidemia) Code(s): E78.5 - HYPERLIPIDEMIA, UNSPECIFIED Qualifiers: Hyperlipidemia type: pure hypercholesterolemia Qualified Code(s): E78.00 - Pure hypercholesterolemia, unspecified; E78.0 - Pure hypercholesterolemia (6) HTN (hypertension) Code(s): I10 - ESSENTIAL (PRIMARY) HYPERTENSION Qualifiers: Hypertension type: essential hypertension Qualified Code(s): I10 - Essential (primary) hypertension (7) Hypercalcemia Code(s): E83.52 - HYPERCALCEMIA (8) Ascending aortic aneurysm Code(s): I71.2 - THORACIC AORTIC ANEURYSM, WITHOUT RUPTURE (9) Hypokalemia Code(s): E87.6 - HYPOKALEMIA (10) Hx of CABG Code(s): Z95.1 - PRESENCE OF AORTOCORONARY BYPASS GRAFT Assessment/Plan 1. Respiratory distress due to community acquired pneumonia 2. CVA/acute frontoparietal cortical infarct - ? source 3. Coronary artery disease status post CABG, angina pectoris 4. Hypertension 5. Hypercholesterolemia 6. Ascending aortic aneurysm 7. CLL 8. Hypokalemia and hypercalcemia 9. anemia 10. CKD PLAN: 1. Neuro input noted. Await MRI of brain and carotid Doppler. Further work up to follow. Continue to monitor for detection of atrial arrhythmia (PAF) - so far there is no evidence of it. Currently monitor reveals sinus tachycardia. Further plans are to follow including JOSE ANGEL if embolic is the cause of this stroke. 2. Plavix given as per Neurology +/- ASA 3. Continue current pulmonary management with antibiotic coverage, steroids and nebulizer treatment 4. Continue Metoprolol ER, Amlodipine and Accupril 5. Continue Atorvastatin (previously was on Vytorin) 6. Continue treatment for CLL 7. Ascending aortic aneurysm can be followed as outpatient 8. K supplement and monitor electrolytes Guarded Transferred to telemetry for monitoring Garret Estes MD
--- NOTE | 2017-02-11 10:55 | PN ---
Progress Note, Physician History of Present Illness: pulmonary events noted , ct head new left cva. pt less congested. - Current Medication List Current Medications: Active Medications Acetaminophen (Tylenol -) 650 mg PO Q6H PRN PRN Reason: FEVER OR PAIN Last Admin: 02/10/17 06:20 Dose: 650 mg Albuterol Sulfate (Ventolin 0.083% Nebulizer Soln -) 1 amp NEB QIDR [facility] Last Admin: 02/11/17 05:43 Dose: 1 amp Albuterol Sulfate (Ventolin 0.083% Nebulizer Soln -) 1 amp NEB Q4H PRN PRN Reason: SHORT OF BREATH/WHEEZING Amlodipine Besylate (Norvasc -) 5 mg PO DAILY [facility] Last Admin: 02/11/17 10:08 Dose: 5 mg Atorvastatin Calcium (Lipitor -) 40 mg PO HS [facility] Last Admin: 02/10/17 21:45 Dose: 40 mg Clopidogrel Bisulfate (Plavix -) 75 mg PO DAILY [facility] Last Admin: 02/11/17 10:09 Dose: 75 mg Enoxaparin Sodium (Lovenox -) 40 mg SQ DAILY [facility] Last Admin: 02/11/17 10:09 Dose: 40 mg Vancomycin HCl (Vancomycin (Pre-Docked)) 250 mls @ 166.667 mls/hr IVPB DAILY@ 1600 [facility] Last Admin: 02/10/17 19:42 Dose: 166.667 mls/hr Meropenem 500 mg/ Dextrose 100 mls @ 100 mls/hr IVPB Q8H-IV [facility] Last Admin: 02/11/17 10:10 Dose: 100 mls/hr Insulin Aspart (Novolog Vial Sliding Scale -) 1 vial SQ BIDAC [facility] PRN Reason: Protocol Last Admin: 02/11/17 06:36 Dose: Not Given Magnesium Oxide (Mag-Ox -) 400 mg PO BID [facility] Last Admin: 02/11/17 10:09 Dose: 400 mg Metoprolol Succinate (Toprol Xl -) 50 mg PO DAILY [facility] Last Admin: 02/11/17 10:09 Dose: 50 mg Non-Formulary Medication (Ibrutinib [Imbruvica]) 0 mg PO DAILY@0700 [facility] Last Admin: 02/11/17 06:36 Dose: 420 mg Ondansetron HCl (Zofran Injection) 4 mg IVPB Q6H PRN PRN Reason: NAUSEA Pantoprazole Sodium (Protonix -) 40 mg PO DAILY [facility] Last Admin: 02/11/17 10:09 Dose: 40 mg Prednisone (Deltasone -) 40 mg PO DAILY [facility] Last Admin: 02/11/17 10:09 Dose: 40 mg Quinapril HCl (Accupril -) 40 mg PO DAILY [facility] Last Admin: 02/11/17 10:09 Dose: 40 mg Tamsulosin HCl (Flomax -) 0.4 mg PO DAILY@0830 [facility] Last Admin: 02/11/17 10:09 Dose: 0.4 mg - Objective Vital Signs: Vital Signs Temperature 98 F 02/11/17 09:02 Pulse Rate 104 H 02/11/17 09:55 Respiratory Rate 20 02/11/17 09:02 Blood Pressure 153/89 02/11/17 09:02 O2 Sat by Pulse Oximetry (%) 94 L 02/11/17 09:55 Constitutional: Yes: Calm, Thin Eyes: Yes: WNL HENT: Yes: WNL Neck: Yes: WNL Cardiovascular: Yes: Regular Rate and Rhythm, S1, S2 Respiratory: Yes: Rhonchi (few scattered rhonchi) Gastrointestinal: Yes: Normal Bowel Sounds, Soft Extremities: Yes: WNL Edema: No Labs: CBC, BMP 02/11/17 05:55 02/11/17 05:55 - ....Imaging Chest X-ray: Report Reviewed, Image Reviewed Cat Scan: Report Reviewed Assessment/Plan ASSESSMENT AND PLAN: Acute Hypoxic Respiratory Failure Pneumonia clinically improving h/o CLL CAD s/p CABG HTN Hypercholesterolemia CKD Lung Nodule Acute L CVA - prednisone - plavix - lasix as needed - inhaled bronchodilators - antibiotics per ID - DVT prophylaxis - home o2 - will need outpt f/u of chest imaging to ensure resolution of infiltrate and lung nodule Problem List - Problems (1) Pneumonia, community acquired Code(s): J18.9 - PNEUMONIA, UNSPECIFIED ORGANISM (2) CAD (coronary artery disease) Code(s): I25.10 - ATHSCL HEART DISEASE OF [place] CORONARY ARTERY W/O ANG PCTRS Qualifiers: Coronary Disease-Associated Artery/Lesion type: [place] artery [place] vs. transplanted heart: [place] heart Associated angina: without angina Qualified Code(s): I25.10 - Atherosclerotic heart disease of [place] coronary artery without angina pectoris (3) HLD (hyperlipidemia) Code(s): E78.5 - HYPERLIPIDEMIA, UNSPECIFIED Qualifiers: Hyperlipidemia type: pure hypercholesterolemia Qualified Code(s): E78.00 - Pure hypercholesterolemia, unspecified; E78.0 - Pure hypercholesterolemia (4) HTN (hypertension) Code(s): I10 - ESSENTIAL (PRIMARY) HYPERTENSION Qualifiers: Hypertension type: essential hypertension Qualified Code(s): I10 - Essential (primary) hypertension (5) CLL (chronic lymphocytic leukemia) Code(s): C91.10 - CHRONIC LYMPHOCYTIC LEUK OF B-CELL TYPE NOT ACHIEVE REMIS
[2017-02-11] MEDS: KCL 10 MEQ IVPB 100 ML IVPB SCH ×3 (11:49→17:19)
[2017-02-11 12:13] LABS: METAMYELOCYTE 1 % (0-2); PLATELET ESTIMATE ADEQUATE (NORMAL)
--- NOTE | 2017-02-11 13:48 | PN ---
Progress Note, Physician Chief Complaint: Mr Saucedo is not very verbal today. Denies cp, sob, n/v but much less interactive than yesterday. Says still is not able to move right hand. - Current Medication List Current Medications: Active Medications Acetaminophen (Tylenol -) 650 mg PO Q6H PRN PRN Reason: FEVER OR PAIN Last Admin: 02/10/17 06:20 Dose: 650 mg Albuterol Sulfate (Ventolin 0.083% Nebulizer Soln -) 1 amp NEB QIDR [facility] Last Admin: 02/11/17 11:10 Dose: 1 amp Albuterol Sulfate (Ventolin 0.083% Nebulizer Soln -) 1 amp NEB Q4H PRN PRN Reason: SHORT OF BREATH/WHEEZING Amlodipine Besylate (Norvasc -) 5 mg PO DAILY [facility] Last Admin: 02/11/17 10:08 Dose: 5 mg Atorvastatin Calcium (Lipitor -) 40 mg PO HS [facility] Last Admin: 02/10/17 21:45 Dose: 40 mg Clopidogrel Bisulfate (Plavix -) 75 mg PO DAILY [facility] Last Admin: 02/11/17 10:09 Dose: 75 mg Enoxaparin Sodium (Lovenox -) 40 mg SQ DAILY [facility] Last Admin: 02/11/17 10:09 Dose: 40 mg Vancomycin HCl (Vancomycin (Pre-Docked)) 250 mls @ 166.667 mls/hr IVPB DAILY@ 1600 [facility] Last Admin: 02/10/17 19:42 Dose: 166.667 mls/hr Meropenem 500 mg/ Dextrose 100 mls @ 100 mls/hr IVPB Q8H-IV [facility] Last Admin: 02/11/17 10:10 Dose: 100 mls/hr Potassium Chloride (Potassium Chloride 10 Meq Premix Ivpb -) 100 mls @ 100 mls/ hr IVPB Q60M [facility] Stop: 02/11/17 13:59 Last Admin: 02/11/17 13:35 Dose: 100 mls/hr Potassium Phosphate 16 mm/ (Sodium Chloride) 255.3333 mls @ 62.5 mls/hr IVPB ONCE ONE Stop: 02/11/17 18:05 Insulin Aspart (Novolog Vial Sliding Scale -) 1 vial SQ BIDAC [facility] PRN Reason: Protocol Last Admin: 02/11/17 06:36 Dose: Not Given Magnesium Oxide (Mag-Ox -) 400 mg PO BID [facility] Last Admin: 02/11/17 10:09 Dose: 400 mg Metoprolol Succinate (Toprol Xl -) 50 mg PO DAILY [facility] Last Admin: 02/11/17 10:09 Dose: 50 mg Non-Formulary Medication (Ibrutinib [Imbruvica]) 0 mg PO DAILY@0700 [facility] Last Admin: 02/11/17 06:36 Dose: 420 mg Ondansetron HCl (Zofran Injection) 4 mg IVPB Q6H PRN PRN Reason: NAUSEA Pantoprazole Sodium (Protonix -) 40 mg PO DAILY [facility] Last Admin: 02/11/17 10:09 Dose: 40 mg Prednisone (Deltasone -) 40 mg PO DAILY [facility] Last Admin: 02/11/17 10:09 Dose: 40 mg Quinapril HCl (Accupril -) 40 mg PO DAILY [facility] Last Admin: 02/11/17 10:09 Dose: 40 mg Tamsulosin HCl (Flomax -) 0.4 mg PO DAILY@0830 [facility] Last Admin: 02/11/17 10:09 Dose: 0.4 mg - Objective Vital Signs: Vital Signs Temperature 98 F 02/11/17 09:02 Pulse Rate 104 H 02/11/17 09:55 Respiratory Rate 20 02/11/17 09:02 Blood Pressure 153/89 02/11/17 09:02 O2 Sat by Pulse Oximetry (%) 94 L 02/11/17 09:55 Constitutional: Yes: Well Nourished, No Distress, Other (lethargic but awake) Cardiovascular: Yes: Regular Rate and Rhythm. No: Gallop, Murmur, Rub Respiratory: Yes: Regular, On Nasal O2, Rhonchi, Wheezes. No: Rales Gastrointestinal: Yes: Normal Bowel Sounds, Soft. No: Distention, Tenderness Extremities: Yes: WNL Edema: No Labs: CBC, BMP 02/11/17 05:55 02/11/17 05:55 Problem List - Problems (1) CVA (cerebral vascular accident) Code(s): I63.9 - CEREBRAL INFARCTION, UNSPECIFIED Qualifiers: CVA mechanism: embolism Precerebral and cerebral artery: anterior cerebral artery Laterality of affected vessel: left Qualified Code(s) : I63.422 - Cerebral infarction due to embolism of left anterior cerebral artery (2) Acute respiratory failure Code(s): J96.00 - ACUTE RESPIRATORY FAILURE, UNSP W HYPOXIA OR HYPERCAPNIA (3) Pneumonia, community acquired Code(s): J18.9 - PNEUMONIA, UNSPECIFIED ORGANISM (4) CKD (chronic kidney disease) Code(s): N18.9 - CHRONIC KIDNEY DISEASE, UNSPECIFIED Qualifiers: Chronic kidney disease stage: stage 2 (mild) Qualified Code(s): N18.2 - Chronic kidney disease, stage 2 (mild) (5) CLL (chronic lymphocytic leukemia) Code(s): C91.10 - CHRONIC LYMPHOCYTIC LEUK OF B-CELL TYPE NOT ACHIEVE REMIS (6) CAD (coronary artery disease) Code(s): I25.10 - ATHSCL HEART DISEASE OF [place] CORONARY ARTERY W/O ANG PCTRS Qualifiers: Coronary Disease-Associated Artery/Lesion type: [place] artery [place] vs. transplanted heart: [place] heart Associated angina: without angina Qualified Code(s): I25.10 - Atherosclerotic heart disease of [place] coronary artery without angina pectoris (7) HLD (hyperlipidemia) Code(s): E78.5 - HYPERLIPIDEMIA, UNSPECIFIED Qualifiers: Hyperlipidemia type: pure hypercholesterolemia Qualified Code(s): E78.00 - Pure hypercholesterolemia, unspecified; E78.0 - Pure hypercholesterolemia (8) HTN (hypertension) Code(s): I10 - ESSENTIAL (PRIMARY) HYPERTENSION Qualifiers: Hypertension type: essential hypertension Qualified Code(s): I10 - Essential (primary) hypertension (9) Hypercalcemia Code(s): E83.52 - HYPERCALCEMIA (10) Hypophosphatemia Code(s): E83.39 - OTHER DISORDERS OF PHOSPHORUS METABOLISM Assessment/Plan (1) Acute respiratory failure -case d/w pulmonary -taper steroids as tolerated -still requiring oxygen -complicated by acute CVA (2) Pneumonia, community acquired Assessment/Plan: -ID following -placed on merrem and vancomycin Code(s): J18.9 - PNEUMONIA, UNSPECIFIED ORGANISM (3) CKD (chronic kidney disease) Assessment/Plan: -at baseline -monitor Code(s): N18.9 - CHRONIC KIDNEY DISEASE, UNSPECIFIED Qualifiers: Chronic kidney disease stage: stage 2 (mild) Qualified Code(s): N18.2 - Chronic kidney disease, stage 2 (mild) (4) CLL (chronic lymphocytic leukemia) Assessment/Plan: -continue home ibrutinib -oncology following Code(s): C91.10 - CHRONIC LYMPHOCYTIC LEUK OF B-CELL TYPE NOT ACHIEVE REMIS (5) CAD (coronary artery disease) Assessment/Plan: -quiescent, no chest pain -continue home regimen Code(s): I25.10 - ATHSCL HEART DISEASE OF [place] CORONARY ARTERY W/O ANG PCTRS (6) HLD (hyperlipidemia) Assessment/Plan: -lipitor increased to 40mg daily Code(s): E78.5 - HYPERLIPIDEMIA, UNSPECIFIED (7) HTN (hypertension) Assessment/Plan: -controlled -continue norvasc, toprol xl, and quinapril Code(s): I10 - ESSENTIAL (PRIMARY) HYPERTENSION (8) Hypercalcemia -improved and stable -off IVF and lasix -monitor (9) Acute CVA -appreciate neurology assistance -lipid panel checked, LDL over 100 so lipitor increased -aspirin changed to plavix -speech and physical therapy consulted -MRI ordered -obtain ECHO and carotid ultrasound -case d/w daughter
[2017-02-11] MEDS ORDERED: POTASSIUM PHOSPHATE 16 MM in SODIUM CHLORIDE 250 ML IVPB ONE (14:00)
[2017-02-11] MEDS: VANCOMYCIN 1 GRAM (PRE-DOCKED) 250 ML IVPB SCH (19:32)
[2017-02-11] MEDS: ACETAMINOPHEN 325 MG TABLET (FP) PO PRN (20:37)
[2017-02-11] MEDS: ATORVASTATIN CA 40 MG TABLET (FP) PO SCH (22:46)
[2017-02-12] MEDS ORDERED: PT OWN MED DRAWER 7, Y5N ONE ×5 (02:41→22:18)
[2017-02-12] MEDS: MEROPENEM 500 MG in DEXTROSE 5%-WATER - 100 ML IVPB SCH ×3 (02:43→19:49)
[2017-02-12] MEDS: ACETAMINOPHEN 325 MG TABLET (FP) PO PRN (02:57)
[2017-02-12] MEDS: IBRUTINIB PO SCH (06:15)
[2017-02-12] MEDS: ALBUTEROL SO4 0.083% IH SOL 2.5 MG/3 ML VIAL.NEB. NEB SCH ×3 (06:30→19:50)
[2017-02-12] MEDS: INSULIN SLIDING SCALE (NOVOLOG) 1 VIAL SQ SCH ×2 (06:41→18:26)
[2017-02-12 07:23] LABS: MCH 27.6 pg (25.7-33.7); MCHC 33.1 g/dl (32.0-35.9); MEAN CELL VOLUME 83.4 fl (80-96); MEAN PLT VOLUME 9.4 fl (7.5-11.1); PLATELET COUNT 143 K/MM3 (134-434); RDW 16.7 % (11.9-15.9)
[2017-02-12 07:58] LABS: ANION GAP 9 (8-16); CALCIUM 8.5 mg/dL (8.5-10.1); CO2 29 mmol/L (21-32); CREATININE 1.4 mg/dL (0.7-1.3); GLUCOSE,RANDOM 190 mg/dL (74-106); MAGNESIUM 2.2 mg/dL (1.8-2.4); PHOSPHOROUS 2.1 mg/dL (2.5-4.9)
--- NOTE | 2017-02-12 08:26 | CON.NEURO ---
Consult - Past Medical History Cardio/Vascular: Yes: CAD, HTN, Hyperlipdemia Gastrointestinal: Yes: Gastritis, GERD, Inflamatory Bowel Disease, Peptic Ulcer Disease, Other (Duodenal adenoma, Pancreatic cyst, S/P Infectious colitis on ) Renal/: Yes: Renal Inusuff, BPH, Other (hypercalcemia) - Past Surgical History Past Surgical History: Yes: Appendectomy, CABG, Cholecystectomy - Alcohol/Substance Use Hx Alcohol Use: No History of Substance Use: reports: None - Smoking History Smoking history: Never smoked Have you smoked in the past 12 months: No Aproximately how many cigarettes per day: 0 - Social History ADL: Independent History of Recent Travel: No Home Medications - Allergies Allergies/Adverse Reactions: Allergies Allergy/AdvReac Type Severity Reaction Status Date / Time piperacillin sodium AdvReac Intermediate Itching Verified 01/29/17 13:57 [From Zosyn] tazobactam sodium AdvReac Intermediate Itching Verified 01/29/17 13:57 [From Zosyn] - Home Medications Home Medications: Ambulatory Orders Aspirin [ASA -] 81 mg PO DAILY 05/07/13 Pravastatin Sodium [Pravachol -] 20 mg PO HS 05/10/13 Silodosin [Rapaflo] 8 mg PO DAILY 05/10/13 Metoprolol Succinate [Toprol Xl] 50 mg PO DAILY 09/28/15 Amlodipine Besylate [Norvasc -] 5 mg PO DAILY #30 tablet 09/13/16 Magnesium Oxide [Mag-Ox -] 400 mg PO BID 01/29/17 Prednisone [Deltasone] 10 mg PO HS 01/29/17 Quinapril HCl [Accupril] 40 mg PO DAILY 01/29/17 Ibrutinib [Imbruvica] 420 mg PO DAILY 01/30/17 Prednisone 5 mg PO DAILY 01/30/17 Family Disease History - Family Disease History Family Disease History: Heart Disease: Father Physical Exam-Neuro Vital Signs: Vital Signs Temperature 98.5 F 02/12/17 06:00 Pulse Rate 87 02/12/17 06:00 Respiratory Rate 18 02/12/17 06:00 Blood Pressure 135/67 02/12/17 06:00 O2 Sat by Pulse Oximetry (%) 94 L 02/11/17 22:00 Labs: CBC, BMP 02/12/17 05:35 02/12/17 05:35 NIH Stroke Scale - Total Score NIH Stroke Scale Score: 0 Assessment/Plan cc right sided arm and leg weakness since february 10 76 year old male history of CAD, htn , hyperlipidemia admitted for pnemonia .and found to have right sided hemiparesis, mri showed multiple bi hemispheric stroke. Past Medical History as above and CLL, Polycythemia vera , renal insufficiency Neurological Examination he seems to be sleepy , though alert and able to follow command speech is low volume and slurred mild right sided facial paralysis right upper extremity is grade 1 and right lower extremity is grade 4/5 mri of brain showed multiple area of infarct carotid ultrasound is no stenosis Assessment-- Left mca stroke causing right sided hemiparesis ( risk factor cad, htn hlp ) he was on apsirin and statin at home. he was switched to plavix and he is found to have bi hemispheric stroke. echo has not been done during this visit and during tele , atrial fibrillation has not been identified Plan -- continue PT , DVT prophylaxis, -- continue plavix and statin -- echo and possible ella - would discuss case with nail sticker for possible anti coagultion -stroke education thanks for consult bee bartlett Neurologist
[2017-02-12] MEDS: QUINAPRIL HCL 40 MG TABLET (FP) PO SCH (09:45)
[2017-02-12] MEDS: CLOPIDOGREL BISULFATE 75 MG TABLET (FP) PO SCH (09:45)
[2017-02-12] MEDS: amLODIPine BESYLATE 5 MG TABLET (FP) PO SCH (09:45)
[2017-02-12] MEDS: MAGNESIUM OXIDE 400 MG TABLET (FP) PO SCH ×2 (09:45→21:43)
[2017-02-12] MEDS: TAMSULOSIN HCL 0.4 MG CAP.ER.24H (FP) PO SCH (09:45)
[2017-02-12] MEDS: predniSONE 20 MG TABLET (UD) PO SCH (09:45)
[2017-02-12] MEDS: METOPROLOL SUCCINATE 50 MG TAB.SR.24H (FP) PO SCH (09:46)
[2017-02-12] MEDS: ENOXAPARIN NA (PORCINE) 40 MG/0.4 ML DISP.SYRIN SQ SCH (09:46)
[2017-02-12] MEDS: PANTOPRAZOLE 40 MG TABLET (FP) PO SCH (09:46)
[2017-02-12] MEDS: KCL 10 MEQ IVPB 100 ML IVPB SCH ×3 (11:00→14:00)
[2017-02-12 11:31] LABS: ARTERIAL BLD GAS O2 SATURATION 91.1 % (90-98.9); ARTERIAL BLOOD GAS BASE EXCESS 6.1 meq/l (-2-2); ARTERIAL BLOOD GAS HCO3 28.7 meq/L (22-26); ARTERIAL BLOOD GAS PO2 57.6 mmHg (70-100)
[2017-02-12 11:33] LABS: ALLENS TEST POSITIVE; ART PUNCT SITE RIGHT RADIAL; LPM/O2% 4 LPM; PT. ON O2? YES
[2017-02-12 11:34] LABS: ARTERIAL BLOOD GAS pH 7.53 (7.35-7.45); TYPE OF O2 NASAL CANNULA
--- NOTE | 2017-02-12 12:14 | PN ---
Progress Note, Physician History of Present Illness: pulmonary sleepy,+ congestion - Current Medication List Current Medications: Active Medications Acetaminophen (Tylenol -) 650 mg PO Q6H PRN PRN Reason: FEVER OR PAIN Last Admin: 02/12/17 02:57 Dose: 650 mg Albuterol Sulfate (Ventolin 0.083% Nebulizer Soln -) 1 amp NEB QIDR [facility] Last Admin: 02/12/17 11:45 Dose: 1 amp Albuterol Sulfate (Ventolin 0.083% Nebulizer Soln -) 1 amp NEB Q4H PRN PRN Reason: SHORT OF BREATH/WHEEZING Amlodipine Besylate (Norvasc -) 5 mg PO DAILY [facility] Last Admin: 02/12/17 09:45 Dose: Not Given Atorvastatin Calcium (Lipitor -) 40 mg PO HS [facility] Last Admin: 02/11/17 22:46 Dose: 40 mg Clopidogrel Bisulfate (Plavix -) 75 mg PO DAILY [facility] Last Admin: 02/12/17 09:45 Dose: Not Given Enoxaparin Sodium (Lovenox -) 40 mg SQ DAILY [facility] Last Admin: 02/12/17 09:46 Dose: 40 mg Vancomycin HCl (Vancomycin (Pre-Docked)) 250 mls @ 166.667 mls/hr IVPB DAILY@ 1600 [facility] Last Admin: 02/11/17 19:32 Dose: 166.667 mls/hr Meropenem 500 mg/ Dextrose 100 mls @ 100 mls/hr IVPB Q8H-IV [facility] Last Admin: 02/12/17 09:46 Dose: 100 mls/hr Potassium Chloride (Potassium Chloride 10 Meq Premix Ivpb -) 100 mls @ 100 mls/ hr IVPB Q60M [facility] Stop: 02/12/17 13:44 Insulin Aspart (Novolog Vial Sliding Scale -) 1 vial SQ BIDAC [facility] PRN Reason: Protocol Last Admin: 02/12/17 06:41 Dose: 2 units Magnesium Oxide (Mag-Ox -) 400 mg PO BID [facility] Last Admin: 02/12/17 09:45 Dose: Not Given Metoprolol Succinate (Toprol Xl -) 50 mg PO DAILY [facility] Last Admin: 02/12/17 09:46 Dose: Not Given Ondansetron HCl (Zofran Injection) 4 mg IVPB Q6H PRN PRN Reason: NAUSEA Last Admin: 02/11/17 14:36 Dose: 4 mg Pantoprazole Sodium (Protonix -) 40 mg PO DAILY [facility] Last Admin: 02/12/17 09:46 Dose: Not Given Prednisone (Deltasone -) 40 mg PO DAILY [facility] Last Admin: 02/12/17 09:45 Dose: Not Given Quinapril HCl (Accupril -) 40 mg PO DAILY [facility] Last Admin: 02/12/17 09:45 Dose: Not Given Tamsulosin HCl (Flomax -) 0.4 mg PO DAILY@0830 [facility] Last Admin: 02/12/17 09:45 Dose: Not Given - Objective Vital Signs: Vital Signs Temperature 98.5 F 02/12/17 06:00 Pulse Rate 89 02/12/17 11:25 Respiratory Rate 18 02/12/17 06:00 Blood Pressure 135/67 02/12/17 06:00 O2 Sat by Pulse Oximetry (%) 91 L 02/12/17 11:25 Constitutional: Yes: Well Nourished, Other (lethargic) Eyes: Yes: WNL HENT: Yes: WNL Neck: Yes: WNL Cardiovascular: Yes: Regular Rate and Rhythm, S1, S2 Respiratory: Yes: Rhonchi (scattered rhonchi bilaterally) Gastrointestinal: Yes: Normal Bowel Sounds, Soft Extremities: Yes: WNL Edema: No Labs: CBC, BMP 02/12/17 05:35 02/12/17 05:35 Assessment/Plan ASSESSMENT AND PLAN: Acute Hypoxic Respiratory Failure Pneumonia ? Aspiration h/o CLL CAD s/p CABG HTN Hypercholesterolemia CKD Lung Nodule Acute L CVA - prednisone taper - plavix - chest x-ray today - inhaled bronchodilators - antibiotics per ID - DVT prophylaxis - O2 - echo ?ella - anticoagulation DR GARCIA Problem List - Problems (1) Pneumonia, community acquired Code(s): J18.9 - PNEUMONIA, UNSPECIFIED ORGANISM (2) CAD (coronary artery disease) Code(s): I25.10 - ATHSCL HEART DISEASE OF [place] CORONARY ARTERY W/O ANG PCTRS Qualifiers: Coronary Disease-Associated Artery/Lesion type: [place] artery [place] vs. transplanted heart: [place] heart Associated angina: without angina Qualified Code(s): I25.10 - Atherosclerotic heart disease of [place] coronary artery without angina pectoris (3) HLD (hyperlipidemia) Code(s): E78.5 - HYPERLIPIDEMIA, UNSPECIFIED Qualifiers: Hyperlipidemia type: pure hypercholesterolemia Qualified Code(s): E78.00 - Pure hypercholesterolemia, unspecified; E78.0 - Pure hypercholesterolemia (4) HTN (hypertension) Code(s): I10 - ESSENTIAL (PRIMARY) HYPERTENSION Qualifiers: Hypertension type: essential hypertension Qualified Code(s): I10 - Essential (primary) hypertension (5) CLL (chronic lymphocytic leukemia) Code(s): C91.10 - CHRONIC LYMPHOCYTIC LEUK OF B-CELL TYPE NOT ACHIEVE REMIS
[2017-02-12] MEDS ORDERED: METOPROLOL TARTRATE 5 MG/5 ML VIAL IVPUSH ONE (12:30)
--- NOTE | 2017-02-12 12:56 | PN ---
Progress Note, IT SERVICE CONTINUITY SUPERVISOR - Note Progress Note: Deterioration in function and increased lethargy reported today. Not following commands or responding to y/n questions.Occasional ability to follow gesture. Severe dysphonia. Repeated swallows generated for 1/2 tsp trial of applesauce. Risk of aspiration. Selected Entries 02/11/17 02/11/17 02/11/17 02:00 06:00 09:02 Breakfast Lunch Supper Temperature 98.9 F 98.8 F 98 F 02/11/17 02/11/17 02/11/17 12:16 14:24 14:45 Breakfast 75% Lunch 50% Supper Temperature 100.6 F H 102.2 F H 02/11/17 02/11/17 02/11/17 17:00 19:29 21:00 Breakfast Lunch Supper 25% Temperature 98.9 F 100.8 F H 02/12/17 02/12/17 02:00 06:00 Breakfast Lunch Supper Temperature 101.1 F H 98.5 F Laboratory Tests 02/08/17 02/09/17 02/10/17 07:20 07:30 06:35 WBC 13.8 H 14.0 H 13.7 H 02/12/17 05:35 WBC 13.0 H IMP: Aphasia, dysphagia, dysphonia. Multiple infarcts on MRI. REC:NPO , If necessary, meds crushed in applesauce mbs when stronger and medically stable.
[2017-02-12] MEDS ORDERED: HEPARIN NA (PORCINE) 5,000 UNITS/ML 1ML VIAL IVPUSH PRN ×2 (13:05)
--- NOTE | 2017-02-12 13:09 | PN ---
Progress Note, Physician Chief Complaint: Unable to obtain. Awake but not speaking today. - Current Medication List Current Medications: Active Medications Acetaminophen (Tylenol -) 650 mg PO Q6H PRN PRN Reason: FEVER OR PAIN Last Admin: 02/12/17 02:57 Dose: 650 mg Albuterol Sulfate (Ventolin 0.083% Nebulizer Soln -) 1 amp NEB QIDR [facility] Last Admin: 02/12/17 11:45 Dose: 1 amp Albuterol Sulfate (Ventolin 0.083% Nebulizer Soln -) 1 amp NEB Q4H PRN PRN Reason: SHORT OF BREATH/WHEEZING Amlodipine Besylate (Norvasc -) 5 mg PO DAILY [facility] Last Admin: 02/12/17 09:45 Dose: Not Given Atorvastatin Calcium (Lipitor -) 40 mg PO HS [facility] Last Admin: 02/11/17 22:46 Dose: 40 mg Clopidogrel Bisulfate (Plavix -) 75 mg PO DAILY [facility] Last Admin: 02/12/17 09:45 Dose: Not Given Enoxaparin Sodium (Lovenox -) 40 mg SQ DAILY [facility] Last Admin: 02/12/17 09:46 Dose: 40 mg Vancomycin HCl (Vancomycin (Pre-Docked)) 250 mls @ 166.667 mls/hr IVPB DAILY@ 1600 [facility] Last Admin: 02/11/17 19:32 Dose: 166.667 mls/hr Meropenem 500 mg/ Dextrose 100 mls @ 100 mls/hr IVPB Q8H-IV [facility] Last Admin: 02/12/17 09:46 Dose: 100 mls/hr Potassium Chloride (Potassium Chloride 10 Meq Premix Ivpb -) 100 mls @ 100 mls/ hr IVPB Q60M [facility] Stop: 02/12/17 13:44 Last Admin: 02/12/17 12:55 Dose: 100 mls/hr Insulin Aspart (Novolog Vial Sliding Scale -) 1 vial SQ BIDAC [facility] PRN Reason: Protocol Last Admin: 02/12/17 06:41 Dose: 2 units Magnesium Oxide (Mag-Ox -) 400 mg PO BID [facility] Last Admin: 02/12/17 09:45 Dose: Not Given Methylprednisolone Sodium Succinate (Solu-Medrol -) 15 mg IVPB BID [facility] Metoprolol Succinate (Toprol Xl -) 50 mg PO DAILY [facility] Last Admin: 02/12/17 09:46 Dose: Not Given Ondansetron HCl (Zofran Injection) 4 mg IVPB Q6H PRN PRN Reason: NAUSEA Last Admin: 02/11/17 14:36 Dose: 4 mg Pantoprazole Sodium (Protonix -) 40 mg PO DAILY [facility] Last Admin: 02/12/17 09:46 Dose: Not Given Quinapril HCl (Accupril -) 40 mg PO DAILY [facility] Last Admin: 02/12/17 09:45 Dose: Not Given Tamsulosin HCl (Flomax -) 0.4 mg PO DAILY@0830 [facility] Last Admin: 02/12/17 09:45 Dose: Not Given - Objective Vital Signs: Vital Signs Temperature 98.5 F 02/12/17 06:00 Pulse Rate 116 H 02/12/17 12:15 Respiratory Rate 18 02/12/17 06:00 Blood Pressure 135/75 02/12/17 12:15 O2 Sat by Pulse Oximetry (%) 91 L 02/12/17 11:25 Constitutional: Yes: No Distress, Calm Cardiovascular: Yes: Regular Rate and Rhythm. No: Gallop, Murmur, Rub Respiratory: Yes: Regular, CTA Bilaterally. No: Rales, Rhonchi, Wheezes Gastrointestinal: Yes: WNL, Normal Bowel Sounds, Soft. No: Distention, Tenderness Extremities: Yes: WNL Edema: No Labs: CBC, BMP 02/12/17 05:35 02/12/17 05:35 Problem List - Problems (1) CVA (cerebral vascular accident) Code(s): I63.9 - CEREBRAL INFARCTION, UNSPECIFIED Qualifiers: CVA mechanism: embolism Precerebral and cerebral artery: anterior cerebral artery Laterality of affected vessel: left Qualified Code(s) : I63.422 - Cerebral infarction due to embolism of left anterior cerebral artery (2) Acute respiratory failure Code(s): J96.00 - ACUTE RESPIRATORY FAILURE, UNSP W HYPOXIA OR HYPERCAPNIA (3) Pneumonia, community acquired Code(s): J18.9 - PNEUMONIA, UNSPECIFIED ORGANISM (4) CKD (chronic kidney disease) Code(s): N18.9 - CHRONIC KIDNEY DISEASE, UNSPECIFIED Qualifiers: Chronic kidney disease stage: stage 2 (mild) Qualified Code(s): N18.2 - Chronic kidney disease, stage 2 (mild) (5) CLL (chronic lymphocytic leukemia) Code(s): C91.10 - CHRONIC LYMPHOCYTIC LEUK OF B-CELL TYPE NOT ACHIEVE REMIS (6) CAD (coronary artery disease) Code(s): I25.10 - ATHSCL HEART DISEASE OF [place] CORONARY ARTERY W/O ANG PCTRS Qualifiers: Coronary Disease-Associated Artery/Lesion type: [place] artery [place] vs. transplanted heart: [place] heart Associated angina: without angina Qualified Code(s): I25.10 - Atherosclerotic heart disease of [place] coronary artery without angina pectoris (7) HLD (hyperlipidemia) Code(s): E78.5 - HYPERLIPIDEMIA, UNSPECIFIED Qualifiers: Hyperlipidemia type: pure hypercholesterolemia Qualified Code(s): E78.00 - Pure hypercholesterolemia, unspecified; E78.0 - Pure hypercholesterolemia (8) HTN (hypertension) Code(s): I10 - ESSENTIAL (PRIMARY) HYPERTENSION Qualifiers: Hypertension type: essential hypertension Qualified Code(s): I10 - Essential (primary) hypertension (9) Hypercalcemia Code(s): E83.52 - HYPERCALCEMIA (10) Hypophosphatemia Code(s): E83.39 - OTHER DISORDERS OF PHOSPHORUS METABOLISM Assessment/Plan (1) Acute respiratory failure -case d/w pulmonary -wean steroids as tolerated -complicated by acute CVA (2) Pneumonia, community acquired Assessment/Plan: -ID following -placed on merrem and vancomycin -still with fevers Code(s): J18.9 - PNEUMONIA, UNSPECIFIED ORGANISM (3) CKD (chronic kidney disease) Assessment/Plan: -at baseline -monitor Code(s): N18.9 - CHRONIC KIDNEY DISEASE, UNSPECIFIED Qualifiers: Chronic kidney disease stage: stage 2 (mild) Qualified Code(s): N18.2 - Chronic kidney disease, stage 2 (mild) (4) CLL (chronic lymphocytic leukemia) Assessment/Plan: -continue home ibrutinib -oncology following Code(s): C91.10 - CHRONIC LYMPHOCYTIC LEUK OF B-CELL TYPE NOT ACHIEVE REMIS (5) CAD (coronary artery disease) Assessment/Plan: -quiescent, no chest pain -continue home regimen Code(s): I25.10 - ATHSCL HEART DISEASE OF [place] CORONARY ARTERY W/O ANG PCTRS (6) HLD (hyperlipidemia) Assessment/Plan: -lipitor increased to 40mg daily Code(s): E78.5 - HYPERLIPIDEMIA, UNSPECIFIED (7) HTN (hypertension) Assessment/Plan: -controlled -continue norvasc, toprol xl, and quinapril Code(s): I10 - ESSENTIAL (PRIMARY) HYPERTENSION (8) Hypercalcemia -stable (9) Acute CVA -MRI showing multiple strokes -ECHO performed earlier this admission, ? JOSE ANGEL -carotid ultrasound performed -case d/w neurology -? hypercoagulable state -will place on heparin gtt -continue plavix and statin -case d/w daughter
[2017-02-12] MEDS ORDERED: HEPARIN INFUSION - 500 ML IVPB ONE (13:14)
[2017-02-12] MEDS ORDERED: HEPARIN - 25,000 UNIT in SODIUM CHLORIDE 495 ML IV SCH (13:15)
--- NOTE | 2017-02-12 13:16 | PN ---
Progress Note, Physician History of Present Illness: Lethargic post-stroke on 40% VM, aphasic. - Current Medication List Current Medications: Active Medications Acetaminophen (Tylenol -) 650 mg PO Q6H PRN PRN Reason: FEVER OR PAIN Last Admin: 02/12/17 02:57 Dose: 650 mg Albuterol Sulfate (Ventolin 0.083% Nebulizer Soln -) 1 amp NEB QIDR [facility] Last Admin: 02/12/17 11:45 Dose: 1 amp Albuterol Sulfate (Ventolin 0.083% Nebulizer Soln -) 1 amp NEB Q4H PRN PRN Reason: SHORT OF BREATH/WHEEZING Amlodipine Besylate (Norvasc -) 5 mg PO DAILY [facility] Last Admin: 02/12/17 09:45 Dose: Not Given Atorvastatin Calcium (Lipitor -) 40 mg PO HS [facility] Last Admin: 02/11/17 22:46 Dose: 40 mg Clopidogrel Bisulfate (Plavix -) 75 mg PO DAILY [facility] Last Admin: 02/12/17 09:45 Dose: Not Given Heparin Sodium (Porcine) (Heparin -) 1,000 unit IVPUSH PRN PRN PRN Reason: Heparin Heparin Sodium (Porcine) (Heparin -) 5,000 unit IVPUSH PRN PRN PRN Reason: Heparin Vancomycin HCl (Vancomycin (Pre-Docked)) 250 mls @ 166.667 mls/hr IVPB DAILY@ 1600 [facility] Last Admin: 02/11/17 19:32 Dose: 166.667 mls/hr Meropenem 500 mg/ Dextrose 100 mls @ 100 mls/hr IVPB Q8H-IV [facility] Last Admin: 02/12/17 09:46 Dose: 100 mls/hr Potassium Chloride (Potassium Chloride 10 Meq Premix Ivpb -) 100 mls @ 100 mls/ hr IVPB Q60M [facility] Stop: 02/12/17 13:44 Last Admin: 02/12/17 12:55 Dose: 100 mls/hr Heparin Sodium (Porcine) 25, (000 unit/ Sodium Chloride) 500 mls @ 20 mls/hr IV TITR [facility]; 1,000 UNIT/HR PRN Reason: Protocol Insulin Aspart (Novolog Vial Sliding Scale -) 1 vial SQ BIDAC [facility] PRN Reason: Protocol Last Admin: 02/12/17 06:41 Dose: 2 units Magnesium Oxide (Mag-Ox -) 400 mg PO BID [facility] Last Admin: 02/12/17 09:45 Dose: Not Given Methylprednisolone Sodium Succinate (Solu-Medrol -) 15 mg IVPB BID [facility] Metoprolol Succinate (Toprol Xl -) 50 mg PO DAILY [facility] Last Admin: 02/12/17 09:46 Dose: Not Given Ondansetron HCl (Zofran Injection) 4 mg IVPB Q6H PRN PRN Reason: NAUSEA Last Admin: 02/11/17 14:36 Dose: 4 mg Pantoprazole Sodium (Protonix -) 40 mg PO DAILY [facility] Last Admin: 02/12/17 09:46 Dose: Not Given Quinapril HCl (Accupril -) 40 mg PO DAILY [facility] Last Admin: 02/12/17 09:45 Dose: Not Given Tamsulosin HCl (Flomax -) 0.4 mg PO DAILY@0830 [facility] Last Admin: 02/12/17 09:45 Dose: Not Given - Objective Vital Signs: Vital Signs Temperature 98.5 F 02/12/17 06:00 Pulse Rate 116 H 02/12/17 12:15 Respiratory Rate 18 02/12/17 06:00 Blood Pressure 135/75 02/12/17 12:15 O2 Sat by Pulse Oximetry (%) 91 L 02/12/17 11:25 Constitutional: Yes: No Distress, Calm Neck: Yes: Supple Cardiovascular: Yes: Tachycardia Respiratory: Yes: Regular, Diminished, On Venti-Mask Gastrointestinal: Yes: Normal Bowel Sounds, Soft Edema: No Labs: CBC, BMP 02/12/17 05:35 02/12/17 05:35 - ....Imaging EKG: Report Reviewed (Tele: ST) Problem List - Problems (1) Acute respiratory failure Code(s): J96.00 - ACUTE RESPIRATORY FAILURE, UNSP W HYPOXIA OR HYPERCAPNIA (2) Ascending aortic aneurysm Code(s): I71.2 - THORACIC AORTIC ANEURYSM, WITHOUT RUPTURE (3) CKD (chronic kidney disease) Code(s): N18.9 - CHRONIC KIDNEY DISEASE, UNSPECIFIED Qualifiers: Chronic kidney disease stage: stage 2 (mild) Qualified Code(s): N18.2 - Chronic kidney disease, stage 2 (mild) (4) CLL (chronic lymphocytic leukemia) Code(s): C91.10 - CHRONIC LYMPHOCYTIC LEUK OF B-CELL TYPE NOT ACHIEVE REMIS (5) Hx of CABG Code(s): Z95.1 - PRESENCE OF AORTOCORONARY BYPASS GRAFT (6) Pneumonia, community acquired Code(s): J18.9 - PNEUMONIA, UNSPECIFIED ORGANISM (7) CAD (coronary artery disease) Code(s): I25.10 - ATHSCL HEART DISEASE OF [place] CORONARY ARTERY W/O ANG PCTRS Qualifiers: Coronary Disease-Associated Artery/Lesion type: [place] artery [place] vs. transplanted heart: [place] heart Associated angina: without angina Qualified Code(s): I25.10 - Atherosclerotic heart disease of [place] coronary artery without angina pectoris (8) HLD (hyperlipidemia) Code(s): E78.5 - HYPERLIPIDEMIA, UNSPECIFIED Qualifiers: Hyperlipidemia type: pure hypercholesterolemia Qualified Code(s): E78.00 - Pure hypercholesterolemia, unspecified; E78.0 - Pure hypercholesterolemia (9) HTN (hypertension) Code(s): I10 - ESSENTIAL (PRIMARY) HYPERTENSION Qualifiers: Hypertension type: essential hypertension Qualified Code(s): I10 - Essential (primary) hypertension (10) Hypokalemia Code(s): E87.6 - HYPOKALEMIA (11) 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 heart failure Code(s): I51.9 - HEART DISEASE, UNSPECIFIED (12) CVA (cerebral vascular accident) Code(s): I63.9 - CEREBRAL INFARCTION, UNSPECIFIED Qualifiers: CVA mechanism: embolism Precerebral and cerebral artery: anterior cerebral artery Laterality of affected vessel: left Qualified Code(s) : I63.422 - Cerebral infarction due to embolism of left anterior cerebral artery (13) At risk for aspiration Code(s): Z91.89 - OTH PERSONAL RISK FACTORS, NOT ELSEWHERE CLASSIFIED Assessment/Plan 02/03/2017 Normal biventricular size and fxn, mild NEHEMIAH, mild [place] mri of brain showed multiple area of infarct carotid ultrasound is no stenosis 1. Acute bihemispheric stroke - ? source 2. Aphasia, dysphagia, dysphonia at risk of aspiration 3. Community acquired PNA 4. Coronary artery disease status post CABG, angina pectoris 5. Hypertension 6. Hypercholesterolemia 7. Ascending aortic aneurysm 8. CLL 9. Hypokalemia and hypercalcemia 10. anemia 11. CKD PLAN: 1. Continue to monitor for detection of atrial arrhythmia (PAF) - so far there is no evidence of it and will also need half-way arrhythmia monitoring. Plan for JOSE ANGEL given suspicion of embolism 2. Plavix 75 qd given as per Neurology, heparin gtt started 3. Continue Metoprolol ER 50 qd, Amlodipine 5 qd and Accupril 40 qd 4. Continue Atorvastatin 40 qhs (previously was on Vytorin) 5. Continue treatment for CLL 6. Ascending aortic aneurysm can be followed as outpatient 7. NPO, mbs when stronger, K supplement and monitor electrolytes 8. PT, DVT prophylaxis, BD, steroid taper, complete abx course, wean FIO2 as tolerated
[2017-02-12] MEDS: methylPREDNISolone NA SUCC 40 MG/1 ML VIAL IVPB SCH ×2 (13:26→21:42)
[2017-02-12 13:41] LABS: TROPONIN I 0.1 ng/ml (0.00-0.05)
[2017-02-12] MEDS ORDERED: morphine CARPU-JECT 2 MG/1 ML DISP.SYRIN IVPUSH ONE (14:29)
--- NOTE | 2017-02-12 14:51 | EKG ---
Test Reason : Blood Pressure : / mmHG Vent. Rate : 102 BPM Atrial Rate : 102 BPM P-R Int : 192 ms QRS Dur : 112 ms QT Int : 358 ms P-R-T Axes : 054 -43 084 degrees QTc Int : 466 ms SINUS TACHYCARDIA WITH OCCASIONAL PREMATURE VENTRICULAR COMPLEXES POSSIBLE LEFT ATRIAL ENLARGEMENT LEFT AXIS DEVIATION INCOMPLETE RIGHT BUNDLE BRANCH BLOCK LEFT VENTRICULAR HYPERTROPHY WITH REPOLARIZATION ABNORMALITY ABNORMAL ECG WHEN COMPARED WITH ECG OF 02-FEB-2017 08:09, NO SIGNIFICANT CHANGE WAS FOUND Confirmed by ESTHER LUGO MD ([id number]) on 02/12/2017 2:50:55 PM Referred By: SAURAV MCGARRY Confirmed By:ESTHER LUGO MD
[2017-02-12] MEDS ORDERED: ACETAMINOPHEN 1000 MG/100 ML VIAL (NON FORMULARY) IVPB ONE ×2 (15:00→20:21)
[2017-02-12] MEDS: VANCOMYCIN 1 GRAM (PRE-DOCKED) 250 ML IVPB SCH ×2 (18:02→18:26)
[2017-02-12 21:02] LABS: ALBUMIN 1.8 g/dl (3.4-5.0); ANION GAP 11 (8-16); BILIRUBIN,TOTAL 0.3 mg/dL (0.2-1.0); CALCIUM 8.7 mg/dL (8.5-10.1); CO2 28 mmol/L (21-32); CREATININE 1.6 mg/dL (0.7-1.3); GLUCOSE,RANDOM 279 mg/dL (74-106); SGOT/AST 24 U/L (15-37); SGPT/ALT 30 U/L (12-78); TOT PROT 5.1 g/dl (6.4-8.2)
[2017-02-12 21:03] LABS: ALK PHOS 58 U/L (45-117)
[2017-02-12 21:08] LABS: TROPONIN I 0.13 ng/ml (0.00-0.05)
[2017-02-12] MEDS: ATORVASTATIN CA 40 MG TABLET (FP) PO SCH (21:43)
[2017-02-13] MEDS: ALBUTEROL SO4 0.083% IH SOL 2.5 MG/3 ML VIAL.NEB. NEB SCH ×5 (00:05→17:42)
[2017-02-13] MEDS: KCL 10 MEQ IVPB 100 ML IVPB SCH ×3 (00:09→04:00)
[2017-02-13] MEDS: SODIUM CHLORIDE 1,000 ML IV SCH ×2 (01:58→20:47)
[2017-02-13] MEDS: MEROPENEM 500 MG in DEXTROSE 5%-WATER - 100 ML IVPB SCH ×3 (02:02→17:45)
[2017-02-13] MEDS ORDERED: ACETAMINOPHEN 1000 MG/100 ML VIAL (NON FORMULARY) IVPB ONE (03:30)
[2017-02-13] MEDS: dilTIAZem HCL 50 MG/10 ML - 10 ML VIAL IVPUSH PRN ×3 (05:52→16:37)
[2017-02-13 06:38] LABS: ALBUMIN 1.8 g/dl (3.4-5.0); ANION GAP 10 (8-16); BILIRUBIN,TOTAL 0.4 mg/dL (0.2-1.0); CALCIUM 8.3 mg/dL (8.5-10.1); CO2 27 mmol/L (21-32); CREATININE 1.6 mg/dL (0.7-1.3); GLUCOSE,RANDOM 288 mg/dL (74-106); MAGNESIUM 2.3 mg/dL (1.8-2.4); PHOSPHOROUS 2.1 mg/dL (2.5-4.9); SGOT/AST 28 U/L (15-37); SGPT/ALT 32 U/L (12-78); TOT PROT 5.2 g/dl (6.4-8.2)
[2017-02-13 06:39] LABS: ALK PHOS 61 U/L (45-117)
[2017-02-13] MEDS: INSULIN SLIDING SCALE (NOVOLOG) 1 VIAL SQ SCH ×2 (06:44→17:10)
[2017-02-13] MEDS: NYSTATIN 100,000 UNIT/GM TOPICAL CREAM 15 GM TUBE TP SCH ×3 (07:38→22:32)
[2017-02-13] MEDS ORDERED: SODIUM CHLORIDE 1,000 ML with POTASSIUM CHLORIDE 40 MEQ IVPB SCH (07:51)
[2017-02-13] MEDS ORDERED: SODIUM CHLORIDE 0.9%/KCL 1,000 ML IV SCH (08:00)
--- NOTE | 2017-02-13 09:27 | PN ---
Progress Note (short form) - Note Progress Note: cc right sided arm and leg weakness since february 10 76 year old male history of CAD, htn , hyperlipidemia admitted for pnemonia .and found to have right sided hemiparesis, mri showed multiple bi hemispheric stroke. Past Medical History as above and CLL, Polycythemia vera , renal insufficiency yesterday he was sleepy when I saw him and later he become more confused and found to have lung crackles , and was later transferred. he failed swallowing and he is not following command Neurological Examination Patient is drowsy and not following command( he has been like that since yesterday afternoon) he is opening his eye mild right sided facial paralysis and pupils are reactive right upper extremity is grade 1 and right lower extremity is grade 4/5 mri of brain showed multiple area of infarct carotid ultrasound is no stenosis Assessment-- Left mca stroke causing right sided hemiparesis ( risk factor cad, htn hlp ), he has been started on iv heparin as he developed atrial fibrillation. given there is conjugate devaiton of eye toward to left , suspect he may have suffer another stroke. advise to do stat ct head to rule out stroke Plan -- continue PT , DVT prophylaxis, -- stat ct scan if there is large stroke, may need to consider to hold iv heparin. as there is high risk of bleed continue supportive care, statin thanks for consult bee bartlett Neurologist
--- NOTE | 2017-02-13 10:08 | PN ---
Progress Note, Physician History of Present Illness: Lethargic post-stroke on 40% VM, aphasic. Repeat HCT shows acute bilateral frontoparietal strokes with mildly increased swelling. Tele shows PAF 120s overnight, currently in SR. - Current Medication List Current Medications: Active Medications Acetaminophen (Tylenol -) 650 mg PO Q6H PRN PRN Reason: FEVER OR PAIN Last Admin: 02/12/17 02:57 Dose: 650 mg Albuterol Sulfate (Ventolin 0.083% Nebulizer Soln -) 1 amp NEB QIDR [facility] Last Admin: 02/13/17 07:35 Dose: 1 amp Albuterol Sulfate (Ventolin 0.083% Nebulizer Soln -) 1 amp NEB Q4H PRN PRN Reason: SHORT OF BREATH/WHEEZING Amlodipine Besylate (Norvasc -) 5 mg PO DAILY [facility] Last Admin: 02/12/17 09:45 Dose: Not Given Atorvastatin Calcium (Lipitor -) 40 mg PO HS [facility] Last Admin: 02/12/17 21:43 Dose: 40 mg Clopidogrel Bisulfate (Plavix -) 75 mg PO DAILY [facility] Last Admin: 02/12/17 09:45 Dose: Not Given Diltiazem HCl (Cardizem Injection -) 10 mg IVPUSH Q4H PRN PRN Reason: Tachycardia >100 Last Admin: 02/13/17 05:52 Dose: 10 mg Heparin Sodium (Porcine) (Heparin -) 1,000 unit IVPUSH PRN PRN PRN Reason: Heparin Heparin Sodium (Porcine) (Heparin -) 5,000 unit IVPUSH PRN PRN PRN Reason: Heparin Vancomycin HCl (Vancomycin (Pre-Docked)) 250 mls @ 166.667 mls/hr IVPB DAILY@ 1600 [facility] Last Admin: 02/12/17 18:26 Dose: 166.667 mls/hr Meropenem 500 mg/ Dextrose 100 mls @ 100 mls/hr IVPB Q8H-IV [facility] Last Admin: 02/13/17 02:02 Dose: 100 mls/hr Heparin Sodium (Porcine) 25, (000 unit/ Sodium Chloride) 500 mls @ 20 mls/hr IV TITR [facility]; 1,000 UNIT/HR PRN Reason: Protocol Last Titration: 02/12/17 22:39 Dose: 900 unit/hr Potassium Chloride/Sodium Chloride (Ns+20 Meq Kcl -) 1,000 mls @ 100 mls/hr IV [facility] Insulin Aspart (Novolog Vial Sliding Scale -) 1 vial SQ BIDAC [facility] PRN Reason: Protocol Last Admin: 02/13/17 06:44 Dose: 2 units Magnesium Oxide (Mag-Ox -) 400 mg PO BID [facility] Last Admin: 02/12/17 21:43 Dose: 400 mg Methylprednisolone Sodium Succinate (Solu-Medrol -) 15 mg IVPB BID [facility] Last Admin: 02/12/17 21:42 Dose: 15 mg Metoprolol Succinate (Toprol Xl -) 50 mg PO DAILY [facility] Last Admin: 02/12/17 09:46 Dose: Not Given Nystatin (Mycostatin Cream -) 1 applic TP BID [facility] Last Admin: 02/13/17 07:38 Dose: Not Given Ondansetron HCl (Zofran Injection) 4 mg IVPB Q6H PRN PRN Reason: NAUSEA Last Admin: 02/11/17 14:36 Dose: 4 mg Pantoprazole Sodium (Protonix -) 40 mg PO DAILY [facility] Last Admin: 02/12/17 09:46 Dose: Not Given Quinapril HCl (Accupril -) 40 mg PO DAILY [facility] Last Admin: 02/12/17 09:45 Dose: Not Given Tamsulosin HCl (Flomax -) 0.4 mg PO DAILY@0830 [facility] Last Admin: 02/12/17 09:45 Dose: Not Given - Objective Vital Signs: Vital Signs Temperature 99 F 02/13/17 06:00 Pulse Rate 85 02/13/17 06:00 Respiratory Rate 22 02/13/17 06:00 Blood Pressure 101/61 02/13/17 06:00 O2 Sat by Pulse Oximetry (%) 95 02/12/17 21:00 Constitutional: Yes: No Distress, Calm Neck: Yes: Supple Cardiovascular: Yes: Regular Rate and Rhythm Respiratory: Yes: Regular, Diminished, On Venti-Mask Gastrointestinal: Yes: Soft, Hypoactive Bowel Sounds Edema: No Labs: CBC, BMP 02/12/17 05:35 02/13/17 05:05 - ....Imaging EKG: Report Reviewed (Tele: PAF->SR) Problem List - Problems (1) Acute respiratory failure Code(s): J96.00 - ACUTE RESPIRATORY FAILURE, UNSP W HYPOXIA OR HYPERCAPNIA (2) Ascending aortic aneurysm Code(s): I71.2 - THORACIC AORTIC ANEURYSM, WITHOUT RUPTURE (3) CKD (chronic kidney disease) Code(s): N18.9 - CHRONIC KIDNEY DISEASE, UNSPECIFIED Qualifiers: Chronic kidney disease stage: stage 2 (mild) Qualified Code(s): N18.2 - Chronic kidney disease, stage 2 (mild) (4) CLL (chronic lymphocytic leukemia) Code(s): C91.10 - CHRONIC LYMPHOCYTIC LEUK OF B-CELL TYPE NOT ACHIEVE REMIS (5) Hx of CABG Code(s): Z95.1 - PRESENCE OF AORTOCORONARY BYPASS GRAFT (6) Pneumonia, community acquired Code(s): J18.9 - PNEUMONIA, UNSPECIFIED ORGANISM (7) CAD (coronary artery disease) Code(s): I25.10 - ATHSCL HEART DISEASE OF [place] CORONARY ARTERY W/O ANG PCTRS Qualifiers: Coronary Disease-Associated Artery/Lesion type: [place] artery [place] vs. transplanted heart: [place] heart Associated angina: without angina Qualified Code(s): I25.10 - Atherosclerotic heart disease of [place] coronary artery without angina pectoris (8) HLD (hyperlipidemia) Code(s): E78.5 - HYPERLIPIDEMIA, UNSPECIFIED Qualifiers: Hyperlipidemia type: pure hypercholesterolemia Qualified Code(s): E78.00 - Pure hypercholesterolemia, unspecified; E78.0 - Pure hypercholesterolemia (9) HTN (hypertension) Code(s): I10 - ESSENTIAL (PRIMARY) HYPERTENSION Qualifiers: Hypertension type: essential hypertension Qualified Code(s): I10 - Essential (primary) hypertension (10) Hypokalemia Code(s): E87.6 - HYPOKALEMIA (11) 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 heart failure Code(s): I51.9 - HEART DISEASE, UNSPECIFIED (12) CVA (cerebral vascular accident) Code(s): I63.9 - CEREBRAL INFARCTION, UNSPECIFIED Qualifiers: CVA mechanism: embolism Precerebral and cerebral artery: anterior cerebral artery Laterality of affected vessel: left Qualified Code(s) : I63.422 - Cerebral infarction due to embolism of left anterior cerebral artery (13) At risk for aspiration Code(s): Z91.89 - OTH PERSONAL RISK FACTORS, NOT ELSEWHERE CLASSIFIED (14) Paroxysmal atrial fibrillation with rapid ventricular response Code(s): I48.0 - PAROXYSMAL ATRIAL FIBRILLATION Assessment/Plan 02/03/2017 Normal biventricular size and fxn, mild NEHEMIAH, mild [place] mri of brain showed multiple area of infarct carotid ultrasound is no stenosis 02/11/2017 Normal biventricular size and fxn, mild-mod MR, abnl LV compliance 1. Acute bihemispheric stroke in context of newly diagnosed paroxysmal afib now in SR 2. Aphasia, dysphagia, dysphonia at risk of aspiration 3. Community acquired PNA 4. Coronary artery disease status post CABG, angina pectoris 5. Hypertension 6. Hypercholesterolemia 7. Ascending aortic aneurysm 8. CLL 9. Hypokalemia and hypercalcemia 10. anemia 11. CKD PLAN: 1. Consider JOSE ANGEL to r/o AMALIA thrombus once stable 2. D/c Plavix 75 qd, transition heparin gtt -> Eliquis 5 bid 3. Resume Metoprolol and Accupril once NGT in with monitor renal fxn 4. Continue Atorvastatin 40 qhs (previously was on Vytorin) 5. Imbruvica has been d/jose 6. Ascending aortic aneurysm can be followed as outpatient 7. NPO, mbs when stronger, K supplement and monitor electrolytes, NGT for enteral feeds 8. PT, DVT prophylaxis, BD, steroid taper, complete abx course, wean FIO2 as tolerated 9. Plan for transfer to [facility] per family request
[2017-02-13] MEDS: TAMSULOSIN HCL 0.4 MG CAP.ER.24H (FP) PO SCH (10:13)
[2017-02-13] MEDS: MAGNESIUM OXIDE 400 MG TABLET (FP) PO SCH ×2 (10:13→21:33)
[2017-02-13] MEDS: QUINAPRIL HCL 40 MG TABLET (FP) PO SCH (10:13)
[2017-02-13] MEDS: amLODIPine BESYLATE 5 MG TABLET (FP) PO SCH (10:14)
[2017-02-13] MEDS: methylPREDNISolone NA SUCC 40 MG/1 ML VIAL IVPB SCH (10:14)
[2017-02-13] MEDS: METOPROLOL SUCCINATE 50 MG TAB.SR.24H (FP) PO SCH (10:14)
[2017-02-13] MEDS: CLOPIDOGREL BISULFATE 75 MG TABLET (FP) PO SCH (10:14)
[2017-02-13] MEDS: PANTOPRAZOLE 40 MG TABLET (FP) PO SCH (10:14)
--- NOTE | 2017-02-13 11:18 | PN ---
Progress Note, Physician Chief Complaint: Unable to obtain. Awake and looks when addressed, but remains non-verbal - Current Medication List Current Medications: Active Medications Acetaminophen (Tylenol -) 650 mg PO Q6H PRN PRN Reason: FEVER OR PAIN Last Admin: 02/12/17 02:57 Dose: 650 mg Albuterol Sulfate (Ventolin 0.083% Nebulizer Soln -) 1 amp NEB QIDR FREDY Last Admin: 02/13/17 07:35 Dose: 1 amp Albuterol Sulfate (Ventolin 0.083% Nebulizer Soln -) 1 amp NEB Q4H PRN PRN Reason: SHORT OF BREATH/WHEEZING Amlodipine Besylate (Norvasc -) 5 mg PO DAILY [facility] Last Admin: 02/13/17 10:14 Dose: Not Given Apixaban (Eliquis -) 5 mg PO BID [facility] Atorvastatin Calcium (Lipitor -) 40 mg PO HS [facility] Last Admin: 02/12/17 21:43 Dose: 40 mg Diltiazem HCl (Cardizem Injection -) 10 mg IVPUSH Q4H PRN PRN Reason: Tachycardia >100 Last Admin: 02/13/17 05:52 Dose: 10 mg Heparin Sodium (Porcine) (Heparin -) 1,000 unit IVPUSH PRN PRN PRN Reason: Heparin Vancomycin HCl (Vancomycin (Pre-Docked)) 250 mls @ 166.667 mls/hr IVPB DAILY@ 1600 [facility] Last Admin: 02/12/17 18:26 Dose: 166.667 mls/hr Meropenem 500 mg/ Dextrose 100 mls @ 100 mls/hr IVPB Q8H-IV [facility] Last Admin: 02/13/17 02:02 Dose: 100 mls/hr Potassium Chloride/Sodium Chloride (Ns+20 Meq Kcl -) 1,000 mls @ 100 mls/hr IV ASDIR [facility] Last Admin: 02/13/17 10:12 Dose: 100 mls/hr Insulin Aspart (Novolog Vial Sliding Scale -) 1 vial SQ BIDAC [facility] PRN Reason: Protocol Last Admin: 02/13/17 06:44 Dose: 2 units Magnesium Oxide (Mag-Ox -) 400 mg PO BID [facility] Last Admin: 02/13/17 10:13 Dose: Not Given Methylprednisolone Sodium Succinate (Solu-Medrol -) 15 mg IVPB BID [facility] Last Admin: 02/13/17 10:14 Dose: 15 mg Metoprolol Succinate (Toprol Xl -) 50 mg PO DAILY [facility] Last Admin: 02/13/17 10:14 Dose: Not Given Nystatin (Mycostatin Cream -) 1 applic TP BID [facility] Last Admin: 02/13/17 07:38 Dose: Not Given Ondansetron HCl (Zofran Injection) 4 mg IVPB Q6H PRN PRN Reason: NAUSEA Last Admin: 02/11/17 14:36 Dose: 4 mg Pantoprazole Sodium (Protonix -) 40 mg PO DAILY [facility] Last Admin: 02/13/17 10:14 Dose: Not Given Quinapril HCl (Accupril -) 40 mg PO DAILY [facility] Last Admin: 02/13/17 10:13 Dose: Not Given Tamsulosin HCl (Flomax -) 0.4 mg PO DAILY@0830 [facility] Last Admin: 02/13/17 10:13 Dose: Not Given - Objective Vital Signs: Vital Signs Temperature 99 F 02/13/17 06:00 Pulse Rate 85 02/13/17 06:00 Respiratory Rate 22 02/13/17 06:00 Blood Pressure 101/61 02/13/17 06:00 O2 Sat by Pulse Oximetry (%) 95 02/12/17 21:00 Constitutional: Yes: Well Nourished, No Distress, Calm Cardiovascular: Yes: Regular Rate and Rhythm. No: Gallop, Murmur, Rub Respiratory: Yes: Regular, CTA Bilaterally, On Nasal O2. No: Rales, Rhonchi, Wheezes Gastrointestinal: Yes: Normal Bowel Sounds, Soft. No: Distention, Tenderness Extremities: Yes: WNL Edema: No Labs: CBC, BMP 02/12/17 05:35 02/13/17 05:05 Problem List - Problems (1) Paroxysmal atrial fibrillation with rapid ventricular response Code(s): I48.0 - PAROXYSMAL ATRIAL FIBRILLATION (2) CVA (cerebral vascular accident) Code(s): I63.9 - CEREBRAL INFARCTION, UNSPECIFIED Qualifiers: CVA mechanism: embolism Precerebral and cerebral artery: anterior cerebral artery Laterality of affected vessel: left Qualified Code(s) : I63.422 - Cerebral infarction due to embolism of left anterior cerebral artery (3) Acute respiratory failure Code(s): J96.00 - ACUTE RESPIRATORY FAILURE, UNSP W HYPOXIA OR HYPERCAPNIA (4) Pneumonia, community acquired Code(s): J18.9 - PNEUMONIA, UNSPECIFIED ORGANISM (5) CKD (chronic kidney disease) Code(s): N18.9 - CHRONIC KIDNEY DISEASE, UNSPECIFIED Qualifiers: Chronic kidney disease stage: stage 2 (mild) Qualified Code(s): N18.2 - Chronic kidney disease, stage 2 (mild) (6) CLL (chronic lymphocytic leukemia) Code(s): C91.10 - CHRONIC LYMPHOCYTIC LEUK OF B-CELL TYPE NOT ACHIEVE REMIS (7) CAD (coronary artery disease) Code(s): I25.10 - ATHSCL HEART DISEASE OF [place] CORONARY ARTERY W/O ANG PCTRS Qualifiers: Coronary Disease-Associated Artery/Lesion type: [place] artery [place] vs. transplanted heart: [place] heart Associated angina: without angina Qualified Code(s): I25.10 - Atherosclerotic heart disease of [place] coronary artery without angina pectoris (8) HLD (hyperlipidemia) Code(s): E78.5 - HYPERLIPIDEMIA, UNSPECIFIED Qualifiers: Hyperlipidemia type: pure hypercholesterolemia Qualified Code(s): E78.00 - Pure hypercholesterolemia, unspecified; E78.0 - Pure hypercholesterolemia (9) HTN (hypertension) Code(s): I10 - ESSENTIAL (PRIMARY) HYPERTENSION Qualifiers: Hypertension type: essential hypertension Qualified Code(s): I10 - Essential (primary) hypertension (10) Hypercalcemia Code(s): E83.52 - HYPERCALCEMIA (11) Hypophosphatemia Code(s): E83.39 - OTHER DISORDERS OF PHOSPHORUS METABOLISM Assessment/Plan (1) Acute respiratory failure -stable today -still requiring oxygen -pulmonary/critical care managing -continue ICU monitoring (2) Pneumonia, community acquired Assessment/Plan: -ID following -remains febrile -on vancomycin and merropenem -? if having drug fever as all cultures are negative -will await further ID recommendations Code(s): J18.9 - PNEUMONIA, UNSPECIFIED ORGANISM (3) CKD (chronic kidney disease) Assessment/Plan: -at baseline -monitor Code(s): N18.9 - CHRONIC KIDNEY DISEASE, UNSPECIFIED Qualifiers: Chronic kidney disease stage: stage 2 (mild) Qualified Code(s): N18.2 - Chronic kidney disease, stage 2 (mild) (4) CLL (chronic lymphocytic leukemia) Assessment/Plan: -continue home ibrutinib -oncology following Code(s): C91.10 - CHRONIC LYMPHOCYTIC LEUK OF B-CELL TYPE NOT ACHIEVE REMIS (5) CAD (coronary artery disease) Assessment/Plan: -quiescent, no chest pain -continue home regimen Code(s): I25.10 - ATHSCL HEART DISEASE OF [place] CORONARY ARTERY W/O ANG PCTRS (6) HLD (hyperlipidemia) Assessment/Plan: -lipitor increased to 40mg daily -however aphasic secondary to stroke -may need feeding tube in short term for oral medications Code(s): E78.5 - HYPERLIPIDEMIA, UNSPECIFIED (7) HTN (hypertension) Assessment/Plan: -controlled -on diltiazem gtt currently -need feeding tube for oral medications Code(s): I10 - ESSENTIAL (PRIMARY) HYPERTENSION (8) Hypercalcemia -stable (9) Acute CVA -MRI and CT scan showing multiple strokes -secondary to paroxysmal atrial fibrillation -aphasic, speech therapy following -will need feeding tube for oral medications -? PEG tube for custodial if does not improve -continue PT -reviewed neurology note, while concern for hemorrhagic conversion patient may benefit from anticoagulation (10) Paroxysmal atrial fibrillation -found on telemetry -case d/w cardiology -will benefit from anticoagulation, neurology following as well concerning anticoagulation -continue diltiazem gtt 42 minutes in critical care time spent with this patient
--- NOTE | 2017-02-13 11:22 | PN ---
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 Selected Entries 02/11/17 02/11/17 02/11/17 02:00 06:00 09:02 Breakfast Lunch Supper Temperature 98.9 F 98.8 F 98 F 02/11/17 02/11/17 02/11/17 12:16 14:24 14:45 Breakfast 75% Lunch 50% Supper Temperature 100.6 F H 102.2 F H 02/11/17 02/11/17 02/11/17 17:00 19:29 21:00 Breakfast Lunch Supper 25% Temperature 98.9 F 100.8 F H 02/12/17 02/12/17 02/12/17 02:00 06:00 10:00 Breakfast 25% Lunch Supper Temperature 101.1 F H 98.5 F 98.6 F 02/12/17 02/12/17 02/12/17 13:55 15:56 20:56 Breakfast Lunch Supper Temperature 103.3 F H 102.5 F H 101.3 F H 02/13/17 02/13/17 02/13/17 02:00 04:00 06:00 Breakfast Lunch Supper Temperature 100.2 F H 101 F H 99 F Laboratory Tests 02/09/17 02/10/17 02/11/17 07:30 06:35 05:55 WBC 14.0 H 13.7 H 12.9 H 02/12/17 05:35 WBC 13.0 H Now NPO. Repeat CXR pending with NGT insertion. Non verbal/nonvocal. Eyes slightly open. Visually tracking me. Moved hand upon verbal/gestural command.
--- NOTE | 2017-02-13 12:02 | PN ---
Teaching Attending Note Name of Resident: Solo Viera ATTENDING PHYSICIAN STATEMENT I saw and evaluated the patient. I reviewed the resident's note and discussed the case with the resident. I agree with the resident's findings and plan as documented. SUBJECTIVE: Patient seen and examined in the ICU. Eyes are open but he is non-verbal. Not able to answer questions. Tele : NSR / periods of P AFib. Intake & Output 02/10/17 02/11/17 02/12/17 02/13/17 23:59 23:59 23:59 23:59 Intake Total 1410 1040 1050 1354 Output Total 200 Balance 1210 1040 1050 1354 Weight 160 lb 12.8 oz 148 lb 5.938 oz 151 lb Last Vital Signs Temp Pulse Resp BP Pulse Ox 99 F 98 H 22 101/61 99 02/13/17 06:00 02/13/17 11:37 02/13/17 06:00 02/13/17 06:00 02/13/17 11:37 Active Medications Acetaminophen (Tylenol -) 650 mg PO Q6H PRN PRN Reason: FEVER OR PAIN Last Admin: 02/12/17 02:57 Dose: 650 mg Albuterol Sulfate (Ventolin 0.083% Nebulizer Soln -) 1 amp NEB QIDR [facility] Last Admin: 02/13/17 11:37 Dose: 1 amp Albuterol Sulfate (Ventolin 0.083% Nebulizer Soln -) 1 amp NEB Q4H PRN PRN Reason: SHORT OF BREATH/WHEEZING Amlodipine Besylate (Norvasc -) 5 mg PO DAILY [facility] Last Admin: 02/13/17 10:14 Dose: Not Given Apixaban (Eliquis -) 5 mg PO BID [facility] Atorvastatin Calcium (Lipitor -) 40 mg PO HS [facility] Last Admin: 02/12/17 21:43 Dose: 40 mg Diltiazem HCl (Cardizem Injection -) 10 mg IVPUSH Q4H PRN PRN Reason: Tachycardia >100 Last Admin: 02/13/17 05:52 Dose: 10 mg Heparin Sodium (Porcine) (Heparin -) 1,000 unit IVPUSH PRN PRN PRN Reason: Heparin Vancomycin HCl (Vancomycin (Pre-Docked)) 250 mls @ 166.667 mls/hr IVPB DAILY@ 1600 [facility] Last Admin: 02/12/17 18:26 Dose: 166.667 mls/hr Meropenem 500 mg/ Dextrose 100 mls @ 100 mls/hr IVPB Q8H-IV [facility] Last Admin: 02/13/17 02:02 Dose: 100 mls/hr Potassium Chloride/Sodium Chloride (Ns+20 Meq Kcl -) 1,000 mls @ 100 mls/hr IV ASDIR [facility] Last Admin: 02/13/17 10:12 Dose: 100 mls/hr Insulin Aspart (Novolog Vial Sliding Scale -) 1 vial SQ BIDAC [facility] PRN Reason: Protocol Last Admin: 02/13/17 06:44 Dose: 2 units Magnesium Oxide (Mag-Ox -) 400 mg PO BID [facility] Last Admin: 02/13/17 10:13 Dose: Not Given Methylprednisolone Sodium Succinate (Solu-Medrol -) 15 mg IVPB BID [facility] Last Admin: 02/13/17 10:14 Dose: 15 mg Metoprolol Succinate (Toprol Xl -) 50 mg PO DAILY [facility] Last Admin: 02/13/17 10:14 Dose: Not Given Nystatin (Mycostatin Cream -) 1 applic TP BID [facility] Last Admin: 02/13/17 07:38 Dose: Not Given Ondansetron HCl (Zofran Injection) 4 mg IVPB Q6H PRN PRN Reason: NAUSEA Last Admin: 02/11/17 14:36 Dose: 4 mg Pantoprazole Sodium (Protonix -) 40 mg PO DAILY [facility] Last Admin: 02/13/17 10:14 Dose: Not Given Quinapril HCl (Accupril -) 40 mg PO DAILY [facility] Last Admin: 02/13/17 10:13 Dose: Not Given Tamsulosin HCl (Flomax -) 0.4 mg PO DAILY@0830 [facility] Last Admin: 02/13/17 10:13 Dose: Not Given Constitutional: Yes: Awake, non-verbal Neck: Yes: Supple Cardiovascular: Yes: Regular Rate and Rhythm Respiratory: Yes: Basilar rhonchi, 40% VM O2 Gastrointestinal: Yes: Soft, (+) Bowel Sounds Edema: No Labs: Laboratory Results - last 24 hr 02/12/17 02/12/17 02/12/17 12:48 18:00 19:30 PTT (Actin FS) 90.9 H Sodium Potassium Chloride Carbon Dioxide Anion Gap BUN Creatinine Creat Clearance w eGFR POC Glucometer Random Glucose Lactic Acid 1.2 Calcium Phosphorus Magnesium Total Bilirubin AST ALT Alkaline Phosphatase Creatine Kinase 32 L Troponin I 0.10 H D Total Protein Albumin 02/12/17 02/12/17 02/13/17 19:30 19:30 05:05 PTT (Actin FS) Sodium 137 135 L Potassium 3.0 L 3.0 L Chloride 98 98 Carbon Dioxide 28 27 Anion Gap 11 10 BUN 30 H 32 H Creatinine 1.6 H 1.6 H Creat Clearance w eGFR 42.01 42.01 POC Glucometer Random Glucose 279 H D 288 H Lactic Acid Calcium 8.7 8.3 L Phosphorus 2.1 L Magnesium 2.3 Total Bilirubin 0.3 D 0.4 D AST 24 28 ALT 30 D 32 Alkaline Phosphatase 58 61 Creatine Kinase 31 L Troponin I 0.13 H D Total Protein 5.1 L 5.2 L Albumin 1.8 L D 1.8 L 02/13/17 02/13/17 05:05 06:38 PTT (Actin FS) 73.4 H Sodium Potassium Chloride Carbon Dioxide Anion Gap BUN Creatinine Creat Clearance w eGFR POC Glucometer 205.38187 Random Glucose Lactic Acid Calcium Phosphorus Magnesium Total Bilirubin AST ALT Alkaline Phosphatase Creatine Kinase Troponin I Total Protein Albumin Problem List - Problems (1) Acute respiratory failure Code(s): J96.00 - ACUTE RESPIRATORY FAILURE, UNSP W HYPOXIA OR HYPERCAPNIA (2) Ascending aortic aneurysm Code(s): I71.2 - THORACIC AORTIC ANEURYSM, WITHOUT RUPTURE (3) CKD (chronic kidney disease) Code(s): N18.9 - CHRONIC KIDNEY DISEASE, UNSPECIFIED Qualifiers: Chronic kidney disease stage: stage 2 (mild) Qualified Code(s): N18.2 - Chronic kidney disease, stage 2 (mild) (4) CLL (chronic lymphocytic leukemia) Code(s): C91.10 - CHRONIC LYMPHOCYTIC LEUK OF B-CELL TYPE NOT ACHIEVE REMIS (5) Hx of CABG Code(s): Z95.1 - PRESENCE OF AORTOCORONARY BYPASS GRAFT (6) Pneumonia, community acquired Code(s): J18.9 - PNEUMONIA, UNSPECIFIED ORGANISM (7) CAD (coronary artery disease) Code(s): I25.10 - ATHSCL HEART DISEASE OF [place] CORONARY ARTERY W/O ANG PCTRS Qualifiers: Coronary Disease-Associated Artery/Lesion type: [place] artery [place] vs. transplanted heart: [place] heart Associated angina: without angina Qualified Code(s): I25.10 - Atherosclerotic heart disease of [place] coronary artery without angina pectoris (8) HLD (hyperlipidemia) Code(s): E78.5 - HYPERLIPIDEMIA, UNSPECIFIED Qualifiers: Hyperlipidemia type: pure hypercholesterolemia Qualified Code(s): E78.00 - Pure hypercholesterolemia, unspecified; E78.0 - Pure hypercholesterolemia (9) HTN (hypertension) Code(s): I10 - ESSENTIAL (PRIMARY) HYPERTENSION Qualifiers: Hypertension type: essential hypertension Qualified Code(s): I10 - Essential (primary) hypertension (10) Hypokalemia Code(s): E87.6 - HYPOKALEMIA (11) 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 heart failure Code(s): I51.9 - HEART DISEASE, UNSPECIFIED (12) CVA (cerebral vascular accident) Code(s): I63.9 - CEREBRAL INFARCTION, UNSPECIFIED Qualifiers: CVA mechanism: embolism Precerebral and cerebral artery: anterior cerebral artery Laterality of affected vessel: left Qualified Code(s) : I63.422 - Cerebral infarction due to embolism of left anterior cerebral artery (13) At risk for aspiration Code(s): Z91.89 - OTH PERSONAL RISK FACTORS, NOT ELSEWHERE CLASSIFIED (14) Paroxysmal atrial fibrillation with rapid ventricular response Code(s): I48.0 - PAROXYSMAL ATRIAL FIBRILLATION Assessment/Plan 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 AFib -> now NSR Aphasia/dysphagia Community Acquired PNA Coronary artery disease /CABG Angina pectoris Hypertension Hypercholesterolemia Ascending aortic aneurysm CLL Anemia CKD AC -> Will consider change to Eliquis D/C Plavix Metoprolol Accupril Atorvastatin 40 qhs NGT for feeds / meds D/C Seroids ABX has been completed Dr Martinez Critical Care Total Critical Care Time (in minutes): 35 Critical Care Statement: The care of this patient involved high complexity decision making to prevent further life threatening deterioration of the patient 's condition and/or to evalute & treat vital organ system(s) failure or risk of failure.
--- NOTE | 2017-02-13 12:59 | PN ---
Physical Exam: SUBJECTIVE: 76 year old male with a past medical history of hypertension, hyperlipidemia, chronic lymphocytic leukemia/lymphoma, peptic ulcer, and duodenal adenoma was admitted to the hospital on 01/29 for shortness of breath for 2-3 weeks with subjective fevers and weakness. Patient was diagnosed with pneumonia and transferred to the ICU. Once stable, he was moved to the floors. Yesterday, patient developed paroxysmal atrial fibrillation with rapid ventricular response and worsening shortness of breath. An MRI of the patient showed multiple, bihemispheric strokes. Patient was transferred in the ICU for monitoring. Today the patient appears lethargic and does not respond to questions or commands. OBJECTIVE: Vital Signs Period Temp Pulse Resp BP Sys/Bull Pulse Ox Last 24 Hr 99 F-103.3 F 85-107 18-28 101-144/61-81 95-99 GENERAL: The patient is awake, not alert or oriented to person, place, or time. Patient unable to communicate. HEAD: Normal with no signs of trauma. EYES: PERRL,conjugate eye deviation, sclera anicteric, conjunctiva clear. No ptosis. ENT: Ears normal, nares patent, oropharynx clear without exudates, moist mucous membranes. NECK: Trachea midline, full range of motion, supple. LUNGS: Breath sounds equal, diminished at the lung bases, no accessory muscle use. HEART: Regular rate and rhythm, S1, S2 without murmur, rub or gallop. ABDOMEN: Soft, nontender, nondistended, normoactive bowel sounds, no guarding, no rebound, no hepatosplenomegaly, no masses. EXTREMITIES: 2+ pulses, warm, well-perfused, no edema. NEUROLOGICAL: Cranial nerves II through XII unable to be assessed accurately due to mental status. Dysarthria noted. gait not observed. 0/5 muscle strength noted in R upper and lower extremities, 3/5 in L upper and lower extremities. patient flexes toes during babinsky reflex R lower extremity and L lower extremity. SKIN: Warm, dry, normal turgor, no rashes or lesions noted CBC, BMP 02/12/17 05:35 02/13/17 05:05 Active Medications Generic Name Dose Route Start Last Admin Trade Name Freq PRN Reason Stop Dose Admin Acetaminophen 650 mg 02/04/17 12:32 02/12/17 02:57 Tylenol - PO 650 mg Q6H PRN Administration FEVER OR PAIN Albuterol Sulfate 1 amp 02/10/17 06:00 02/13/17 11:37 Ventolin 0.083% Nebulizer Soln - NEB 1 amp QIDR FREDY Administration Albuterol Sulfate 1 amp 02/10/17 14:06 Ventolin 0.083% Nebulizer Soln - NEB Q4H PRN SHORT OF BREATH/WHEEZING Amlodipine Besylate 5 mg 02/05/17 10:00 02/13/17 10:14 Norvasc - PO Not Given DAILY [facility] Apixaban 5 mg 02/13/17 22:00 Eliquis - PO BID [facility] Atorvastatin Calcium 40 mg 02/10/17 22:00 02/12/17 21:43 Lipitor - PO 40 mg HS [facility] Administration Diltiazem HCl 10 mg 02/13/17 05:42 02/13/17 05:52 Cardizem Injection - IVPUSH 10 mg Q4H PRN Administration Tachycardia >100 Heparin Sodium (Porcine) 1,000 unit 02/12/17 13:05 Heparin - IVPUSH PRN PRN Heparin Vancomycin HCl 250 mls @ 166.667 mls/hr 02/10/17 16:00 02/12/17 18:26 Vancomycin (Pre-Docked) IVPB 166.667 mls/hr DAILY@1600 [facility] Administration Meropenem 500 mg/ Dextrose 100 mls @ 100 mls/hr 02/10/17 15:45 02/13/17 12:30 IVPB 100 mls/hr Q8H-IV [facility] Administration Potassium Chloride/Sodium Chloride 1,000 mls @ 100 mls/hr 02/13/17 08:00 10:12 Ns+20 Meq Kcl - IV 100 mls/hr ASDIR [facility] Administration Insulin Aspart 1 vial 02/09/17 16:30 02/13/17 06:44 Novolog Vial Sliding Scale - SQ 2 units BIDAC [facility] Administration Protocol Magnesium Oxide 400 mg 02/04/17 22:00 02/13/17 10:13 Mag-Ox - PO Not Given BID [facility] Methylprednisolone Sodium Succinate 15 mg 02/12/17 13:00 02/13/17 10:14 Solu-Medrol - IVPB 15 mg BID [facility] Administration Metoprolol Succinate 50 mg 02/05/17 10:00 02/13/17 10:14 Toprol Xl - PO Not Given DAILY [facility] Nystatin 1 applic 02/12/17 23:15 02/13/17 07:38 Mycostatin Cream - TP Not Given BID [facility] Ondansetron HCl 4 mg 02/10/17 19:29 02/11/17 14:36 Zofran Injection IVPB 4 mg Q6H PRN Administration NAUSEA Pantoprazole Sodium 40 mg 02/05/17 10:00 02/13/17 10:14 Protonix - PO Not Given DAILY [facility] Quinapril HCl 40 mg 02/05/17 10:00 02/13/17 10:13 Accupril - PO Not Given DAILY [facility] Tamsulosin HCl 0.4 mg 02/05/17 08:30 02/13/17 10:13 Flomax - PO Not Given DAILY@0830 [facility] ASSESSMENT/PLAN: 76 year old male pmh HTN, HLD, CLL, peptic ulcer, duodenal adenoma in the ICU for bihemispheric strokes and paroxysmal atrial fibrillation with rapid ventricular response Neuro: patient with bilateral hemispheric strokes causing R sided weakness, EOM weakness, and dysphagia -discontinue heparin -discontinue plavix -start Eliquis 5mg NGT BID -cont ondansetron Q6H PRN Cardiovascular: new onset atrial fibrillation with rapid ventricular response -start cardizem 10mg IV -hold metroprolol, quinapril, tamsulosin, amlodipine -continue atorvastatin Pulmonary: respiratory distress likely 2/2 pneumonia -continue meropenem -continue vancomycin -continue albuterol FEN: -pt with dysphagia, inserted NGT based on speech/swallow recommendations -NaCl 1000 @ 100ml/hr with KCl 20mEq -give 1 dose KCl 20mEq oral solution through NGT Dispo: -Informed that patient's family plan on transfer to [facility]. [facility] transfer Problem List - Problems (1) Acute respiratory failure Code(s): J96.00 - ACUTE RESPIRATORY FAILURE, UNSP W HYPOXIA OR HYPERCAPNIA (2) CVA (cerebral vascular accident) Code(s): I63.9 - CEREBRAL INFARCTION, UNSPECIFIED Qualifiers: CVA mechanism: embolism Precerebral and cerebral artery: anterior cerebral artery Laterality of affected vessel: left Qualified Code(s) : I63.422 - Cerebral infarction due to embolism of left anterior cerebral artery (3) Paroxysmal atrial fibrillation with rapid ventricular response Code(s): I48.0 - PAROXYSMAL ATRIAL FIBRILLATION (4) Pneumonia, community acquired Code(s): J18.9 - PNEUMONIA, UNSPECIFIED ORGANISM Visit type - Emergency Visit Emergency Visit: No - New Patient This patient is new to me today: Yes Date on this admission: 02/13/17 - Critical Care Critical Care patient: Yes Total Critical Care Time (in minutes): 45 Critical Care Statement: The care of this patient involved high complexity decision making to prevent further life threatening deterioration of the patient 's condition and/or to evalute & treat vital organ system(s) failure or risk of failure.
[2017-02-13] MEDS ORDERED: POTASSIUM CHLORIDE ORAL LIQUID 20 MEQ/15 ML NGT ONE (13:30)
--- NOTE | 2017-02-13 14:09 | PN ---
Progress Note, Physician History of Present Illness: Awake, aphasic Temps noted Slightly tachypneic on mask; no acute respiratory distress Repeat cultures obtained - Current Medication List Current Medications: Active Medications Acetaminophen (Tylenol -) 650 mg PO Q6H PRN PRN Reason: FEVER OR PAIN Last Admin: 02/12/17 02:57 Dose: 650 mg Albuterol Sulfate (Ventolin 0.083% Nebulizer Soln -) 1 amp NEB QIDR [facility]EDY Last Admin: 02/13/17 11:37 Dose: 1 amp Albuterol Sulfate (Ventolin 0.083% Nebulizer Soln -) 1 amp NEB Q4H PRN PRN Reason: SHORT OF BREATH/WHEEZING Amlodipine Besylate (Norvasc -) 5 mg PO DAILY [facility] Last Admin: 02/13/17 10:14 Dose: Not Given Apixaban (Eliquis -) 5 mg PO BID [facility] Atorvastatin Calcium (Lipitor -) 40 mg PO HS [facility] Last Admin: 02/12/17 21:43 Dose: 40 mg Diltiazem HCl (Cardizem Injection -) 10 mg IVPUSH Q4H PRN PRN Reason: Tachycardia >100 Last Admin: 02/13/17 05:52 Dose: 10 mg Heparin Sodium (Porcine) (Heparin -) 1,000 unit IVPUSH PRN PRN PRN Reason: Heparin Vancomycin HCl (Vancomycin (Pre-Docked)) 250 mls @ 166.667 mls/hr IVPB DAILY@ 1600 [facility] Last Admin: 02/12/17 18:26 Dose: 166.667 mls/hr Meropenem 500 mg/ Dextrose 100 mls @ 100 mls/hr IVPB Q8H-IV [facility] Last Admin: 02/13/17 12:30 Dose: 100 mls/hr Potassium Chloride/Sodium Chloride (Ns+20 Meq Kcl -) 1,000 mls @ 100 mls/hr IV ASDIR [facility] Last Admin: 02/13/17 10:12 Dose: 100 mls/hr Insulin Aspart (Novolog Vial Sliding Scale -) 1 vial SQ BIDAC [facility]Y PRN Reason: Protocol Last Admin: 02/13/17 06:44 Dose: 2 units Magnesium Oxide (Mag-Ox -) 400 mg PO BID [facility] Last Admin: 02/13/17 10:13 Dose: Not Given Methylprednisolone Sodium Succinate (Solu-Medrol -) 15 mg IVPB BID [facility] Last Admin: 02/13/17 10:14 Dose: 15 mg Metoprolol Succinate (Toprol Xl -) 50 mg PO DAILY [facility] Last Admin: 02/13/17 10:14 Dose: Not Given Nystatin (Mycostatin Cream -) 1 applic TP BID [facility] Last Admin: 02/13/17 12:40 Dose: 1 applic Ondansetron HCl (Zofran Injection) 4 mg IVPB Q6H PRN PRN Reason: NAUSEA Last Admin: 02/11/17 14:36 Dose: 4 mg Pantoprazole Sodium (Protonix -) 40 mg PO DAILY [facility] Last Admin: 02/13/17 10:14 Dose: Not Given Quinapril HCl (Accupril -) 40 mg PO DAILY [facility] Last Admin: 02/13/17 10:13 Dose: Not Given Tamsulosin HCl (Flomax -) 0.4 mg PO DAILY@0830 [facility] Last Admin: 02/13/17 10:13 Dose: Not Given - Objective Vital Signs: Vital Signs Temperature 99 F 02/13/17 06:00 Pulse Rate 98 H 02/13/17 11:37 Respiratory Rate 22 02/13/17 06:00 Blood Pressure 101/61 02/13/17 06:00 O2 Sat by Pulse Oximetry (%) 99 02/13/17 11:37 Constitutional: Yes: No Distress Eyes: Yes: Conjunctiva Clear Cardiovascular: Yes: Regular Rate and Rhythm, S1, S2 Respiratory: Yes: Diminished Gastrointestinal: Yes: Normal Bowel Sounds, Soft. No: Tenderness Labs: CBC, BMP 02/12/17 05:35 02/13/17 05:05 Assessment/Plan Acute L CVA Pneumonia Recurrent fever CLL PCN allergy Await repeat blood c/s. Continue empiric meropenem/ vancomycin Aspiration precautions
[2017-02-13] MEDS ORDERED: dilTIAZem HCL 125 MG/25 ML - 5 ML VIAL ONE ×2 (16:23→22:36)
--- NOTE | 2017-02-13 16:34 | EKG ---
Test Reason : Blood Pressure : / mmHG Vent. Rate : 115 BPM Atrial Rate : 111 BPM P-R Int : 000 ms QRS Dur : 106 ms QT Int : 316 ms P-R-T Axes : 000 -34 107 degrees QTc Int : 437 ms ATRIAL FIBRILLATION WITH RAPID VENTRICULAR RESPONSE LEFT AXIS DEVIATION VOLTAGE CRITERIA FOR LEFT VENTRICULAR HYPERTROPHY ABNORMAL ECG WHEN COMPARED WITH ECG OF 12-FEB-2017 12:38, ATRIAL FIBRILLATION HAS REPLACED SINUS RHYTHM Confirmed by JOSE CHATMAN, AURORA ([id number]) on 02/13/2017 4:34:10 PM Referred By: SAURAV MCGARRY Confirmed By:AURORA GARCIA MD
[2017-02-13] MEDS: VANCOMYCIN 1 GRAM (PRE-DOCKED) 250 ML IVPB SCH (16:39)
[2017-02-13] MEDS: DILTIAZEM INJECTION 125 MG in DEXTROSE 5%-WATER - 100 ML IVPB SCH (17:15)
[2017-02-13 19:09] LABS: ANION GAP 11 (8-16); CALCIUM 7.6 mg/dL (8.5-10.1); CO2 24 mmol/L (21-32); CREATININE 1.5 mg/dL (0.7-1.3)
[2017-02-13 19:10] LABS: GLUCOSE,RANDOM 296 mg/dL (74-106)
[2017-02-13] MEDS: ACETAMINOPHEN 325 MG TABLET (FP) PO PRN (20:45)
--- NOTE | 2017-02-13 20:53 | PN ---
Progress Note (short form) - Note Progress Note: seen 939 transferred to ICU nurse at bedside notes pt in AF last pm and more lethargic. Had repeat CT now. tele - sinus rhythm now PE sleepy L gaze; R neglect? lungs-ant CTA CVS- tachy S1S2 ext-no edema Imp - neuro sxs noted prior to planned d/c and imaging c/w acute infarcts w/u in progress AF captured last pm appreciate mgt per neuro, cardiol, ICU CT read as of time of this writing shows new infarct areas. 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
[2017-02-13] MEDS: APIXABAN 5 MG TABLET PO SCH (21:33)
[2017-02-13] MEDS: ATORVASTATIN CA 40 MG TABLET (FP) PO SCH (21:33)
[2017-02-13] MEDS: METOPROLOL TARTRATE 25 MG TABLET (FP) NGT SCH (23:31)
[2017-02-14] MEDS: ALBUTEROL SO4 0.083% IH SOL 2.5 MG/3 ML VIAL.NEB. NEB SCH ×4 (00:01→17:15)
[2017-02-14] MEDS: METOPROLOL TARTRATE 25 MG TABLET (FP) NGT SCH ×3 (00:30→21:34)
[2017-02-14] MEDS: MEROPENEM 500 MG in DEXTROSE 5%-WATER - 100 ML IVPB SCH ×3 (01:31→18:56)
[2017-02-14] MEDS: ACETAMINOPHEN 325 MG TABLET (FP) PO PRN (02:34)
[2017-02-14 05:48] LABS: MCH 27.4 pg (25.7-33.7); MCHC 32.5 g/dl (32.0-35.9); MEAN CELL VOLUME 84.3 fl (80-96); MEAN PLT VOLUME 8.7 fl (7.5-11.1); PLATELET COUNT 158 K/MM3 (134-434); RDW 17.2 % (11.9-15.9); WHITE BLOOD COUNT 20.1 K/mm3 (4.0-10.0)
[2017-02-14 06:09] LABS: ANION GAP 10 (8-16); CALCIUM 7.9 mg/dL (8.5-10.1); CO2 26 mmol/L (21-32); CREATININE 1.5 mg/dL (0.7-1.3); GLUCOSE,RANDOM 287 mg/dL (74-106)
--- NOTE | 2017-02-14 07:44 | PN ---
Progress Note, Physician Chief Complaint: ID Empiric therapy Vancomycin and Meropenem as per Dr Steinberg Remains febrile 101.6 tachypneic Poorly responsive - Current Medication List Current Medications: Active Medications Acetaminophen (Tylenol -) 650 mg PO Q6H PRN PRN Reason: FEVER OR PAIN Last Admin: 02/14/17 02:34 Dose: 650 mg Albuterol Sulfate (Ventolin 0.083% Nebulizer Soln -) 1 amp NEB QIDR [facility] Last Admin: 02/14/17 05:47 Dose: 1 amp Albuterol Sulfate (Ventolin 0.083% Nebulizer Soln -) 1 amp NEB Q4H PRN PRN Reason: SHORT OF BREATH/WHEEZING Apixaban (Eliquis -) 5 mg PO BID [facility] Last Admin: 02/13/17 21:33 Dose: 5 mg Atorvastatin Calcium (Lipitor -) 40 mg PO HS [facility] Last Admin: 02/13/17 21:33 Dose: 40 mg Diltiazem HCl (Cardizem Injection -) 10 mg IVPUSH Q4H PRN PRN Reason: Tachycardia >100 Last Admin: 02/13/17 16:37 Dose: 10 mg Heparin Sodium (Porcine) (Heparin -) 1,000 unit IVPUSH PRN PRN PRN Reason: Heparin Vancomycin HCl (Vancomycin (Pre-Docked)) 250 mls @ 166.667 mls/hr IVPB DAILY@ 1600 [facility] Last Admin: 02/13/17 16:39 Dose: 166.667 mls/hr Meropenem 500 mg/ Dextrose 100 mls @ 100 mls/hr IVPB Q8H-IV [facility] Last Admin: 02/14/17 01:31 Dose: 100 mls/hr Diltiazem HCl 125 mg/ Dextrose 125 mls @ 7.5 mls/hr IVPB TITR [facility]Y; 7.5 MG/HR PRN Reason: Protocol Last Titration: 02/13/17 22:28 Dose: 10 mg/hr Insulin Aspart (Novolog Vial Sliding Scale -) 1 vial SQ BIDAC [facility]Y PRN Reason: Protocol Last Admin: 02/13/17 17:10 Dose: 6 units Magnesium Oxide (Mag-Ox -) 400 mg PO BID [facility] Last Admin: 02/13/17 21:33 Dose: 400 mg Metoprolol Tartrate (Lopressor -) 25 mg NGT BID [facility] Last Admin: 02/13/17 23:31 Dose: 25 mg Nystatin (Mycostatin Cream -) 1 applic TP BID [facility] Last Admin: 02/13/17 22:32 Dose: 1 applic Ondansetron HCl (Zofran Injection) 4 mg IVPB Q6H PRN PRN Reason: NAUSEA Last Admin: 02/11/17 14:36 Dose: 4 mg Pantoprazole Sodium (Protonix -) 40 mg PO DAILY [facility] Last Admin: 02/13/17 10:14 Dose: Not Given Quinapril HCl (Accupril -) 40 mg PO DAILY [facility] Last Admin: 02/13/17 10:13 Dose: Not Given Tamsulosin HCl (Flomax -) 0.4 mg PO DAILY@0830 [facility] Last Admin: 02/13/17 10:13 Dose: Not Given - Objective Vital Signs: Vital Signs Temperature 101.6 F H 02/14/17 06:00 Pulse Rate 90 02/14/17 06:00 Respiratory Rate 27 H 02/14/17 06:00 Blood Pressure 124/65 02/14/17 06:00 O2 Sat by Pulse Oximetry (%) 98 02/13/17 21:00 Constitutional: Yes: Moderate Distress, Other (venti mask) Neck: Yes: WNL, Supple Cardiovascular: Yes: Pulse Irregular, S1, S2 Respiratory: Yes: WNL, Regular, CTA Bilaterally, Rales Gastrointestinal: Yes: WNL, Normal Bowel Sounds, Soft. No: Tenderness, Tenderness, Epigastrium, Tenderness, Rebound Extremities: No: Cold, Cool, Cyanosis Edema: No Labs: CBC, BMP 02/14/17 05:10 02/14/17 05:10 Problem List - Problems (1) CLL (chronic lymphocytic leukemia) Code(s): C91.10 - CHRONIC LYMPHOCYTIC LEUK OF B-CELL TYPE NOT ACHIEVE REMIS (2) Pneumonia, community acquired Code(s): J18.9 - PNEUMONIA, UNSPECIFIED ORGANISM (3) CVA (cerebral vascular accident) Code(s): I63.9 - CEREBRAL INFARCTION, UNSPECIFIED Qualifiers: CVA mechanism: embolism Precerebral and cerebral artery: anterior cerebral artery Laterality of affected vessel: left Qualified Code(s) : I63.422 - Cerebral infarction due to embolism of left anterior cerebral artery (4) Chronic leukemia Code(s): C95.10 - CHRONIC LEUKEMIA OF UNSP CELL TYPE NOT ACHIEVE REMISSION (5) Atrial fibrillation Code(s): I48.91 - UNSPECIFIED ATRIAL FIBRILLATION Assessment/Plan Laboratory Tests 02/12/17 02/14/17 02/14/17 05:35 05:10 05:10 WBC 20.1 H D Hgb 10.8 L Hct 33.2 L Plt Count 158 Neutrophils % 92.0 H Lymphocytes % 2.0 L Monocytes % 2.0 L D Band Neutrophils 4.0 D BUN 37 H Creatinine 1.5 H Assessment 1. Respiratory distress on Venti mask 2. Fever & Bilateral pulmonary infiltrates ? aspiration ? central fevers 3. Acute strokes with hemiparesis 4. Chronic lymphocytic leukemia 5. WBC ? leukemia recent steroids sepsis 6. Atrial fibrillation 7. Coronary artery disease Plan Continue Meropenem Stop Vancomycin ( blood cultures negative) LGA Discussed at length house staff Monitoring fevers Critical care time spent today 38 minutes Naomi CHATMAN
[2017-02-14] MEDS: INSULIN SLIDING SCALE (NOVOLOG) 1 VIAL SQ SCH ×2 (07:45→17:18)
[2017-02-14] MEDS ORDERED: POTASSIUM CHLORIDE ORAL LIQUID 20 MEQ/15 ML NGT ONE (08:45)
[2017-02-14] MEDS: ACETAMINOPHEN 1000 MG/100 ML VIAL (NON FORMULARY) IVPB PRN ×2 (09:00→17:17)
[2017-02-14] MEDS: QUINAPRIL HCL 40 MG TABLET (FP) PO SCH (10:00)
--- NOTE | 2017-02-14 10:13 | PN ---
Progress Note, Physician History of Present Illness: Lethargic and unarousable post-stroke on 40% VM, aphasic. Repeat HCT shows bilateral multiple supratentorial and infratentorial strokes. Tele shows rate- controlled persistent afib. Chest CT shows bilateral upper lobe PNA. Febrile, abx coverage adjusted. - Current Medication List Current Medications: Active Medications Acetaminophen (Tylenol -) 650 mg PO Q6H PRN PRN Reason: FEVER OR PAIN Last Admin: 02/14/17 02:34 Dose: 650 mg Acetaminophen (Ofirmev Injection -) 1,000 mg IVPB Q6H PRN PRN Reason: FEVER OR PAIN Stop: 02/15/17 02:38 Albuterol Sulfate (Ventolin 0.083% Nebulizer Soln -) 1 amp NEB QIDR [facility] Last Admin: 02/14/17 05:47 Dose: 1 amp Albuterol Sulfate (Ventolin 0.083% Nebulizer Soln -) 1 amp NEB Q4H PRN PRN Reason: SHORT OF BREATH/WHEEZING Apixaban (Eliquis -) 5 mg PO BID [facility] Last Admin: 02/13/17 21:33 Dose: 5 mg Atorvastatin Calcium (Lipitor -) 40 mg PO HS [facility] Last Admin: 02/13/17 21:33 Dose: 40 mg Diltiazem HCl (Cardizem Injection -) 10 mg IVPUSH Q4H PRN PRN Reason: Tachycardia >100 Last Admin: 02/13/17 16:37 Dose: 10 mg Heparin Sodium (Porcine) (Heparin -) 1,000 unit IVPUSH PRN PRN PRN Reason: Heparin Meropenem 500 mg/ Dextrose 100 mls @ 100 mls/hr IVPB Q8H-IV [facility] Last Admin: 02/14/17 01:31 Dose: 100 mls/hr Diltiazem HCl 125 mg/ Dextrose 125 mls @ 7.5 mls/hr IVPB TITR [facility]; 7.5 MG/HR PRN Reason: Protocol Last Titration: 02/13/17 22:28 Dose: 10 mg/hr Pantoprazole Sodium 40 mg/ (Sodium Chloride) 100 mls @ 200 mls/hr IVPB DAILY [facility] Insulin Aspart (Novolog Vial Sliding Scale -) 1 vial SQ BIDAC [facility] PRN Reason: Protocol Last Admin: 02/14/17 07:45 Dose: 4 units Magnesium Oxide (Mag-Ox -) 400 mg PO BID [facility] Last Admin: 02/13/17 21:33 Dose: 400 mg Metoprolol Tartrate (Lopressor -) 25 mg NGT BID [facility] Last Admin: 02/13/17 23:31 Dose: 25 mg Nystatin (Mycostatin Cream -) 1 applic TP BID [facility] Last Admin: 02/13/17 22:32 Dose: 1 applic Ondansetron HCl (Zofran Injection) 4 mg IVPB Q6H PRN PRN Reason: NAUSEA Last Admin: 02/11/17 14:36 Dose: 4 mg Quinapril HCl (Accupril -) 40 mg PO DAILY [facility] Last Admin: 02/13/17 10:13 Dose: Not Given Tamsulosin HCl (Flomax -) 0.4 mg PO DAILY@0830 [facility] Last Admin: 02/13/17 10:13 Dose: Not Given - Objective Vital Signs: Vital Signs Temperature 101.6 F H 02/14/17 06:00 Pulse Rate 90 02/14/17 06:00 Respiratory Rate 27 H 02/14/17 06:00 Blood Pressure 124/65 02/14/17 06:00 O2 Sat by Pulse Oximetry (%) 98 02/13/17 21:00 Constitutional: Yes: No Distress, Calm Neck: Yes: Supple Cardiovascular: Yes: Pulse Irregular Respiratory: Yes: Regular, On Venti-Mask, Rhonchi Gastrointestinal: Yes: Normal Bowel Sounds, Soft Edema: No Labs: CBC, BMP 02/14/17 05:10 02/14/17 05:10 Problem List - Problems (1) Acute respiratory failure Code(s): J96.00 - ACUTE RESPIRATORY FAILURE, UNSP W HYPOXIA OR HYPERCAPNIA (2) Ascending aortic aneurysm Code(s): I71.2 - THORACIC AORTIC ANEURYSM, WITHOUT RUPTURE (3) CKD (chronic kidney disease) Code(s): N18.9 - CHRONIC KIDNEY DISEASE, UNSPECIFIED Qualifiers: Chronic kidney disease stage: stage 2 (mild) Qualified Code(s): N18.2 - Chronic kidney disease, stage 2 (mild) (4) CLL (chronic lymphocytic leukemia) Code(s): C91.10 - CHRONIC LYMPHOCYTIC LEUK OF B-CELL TYPE NOT ACHIEVE REMIS (5) Hx of CABG Code(s): Z95.1 - PRESENCE OF AORTOCORONARY BYPASS GRAFT (6) Pneumonia, community acquired Code(s): J18.9 - PNEUMONIA, UNSPECIFIED ORGANISM (7) CAD (coronary artery disease) Code(s): I25.10 - ATHSCL HEART DISEASE OF [place] CORONARY ARTERY W/O ANG PCTRS Qualifiers: Coronary Disease-Associated Artery/Lesion type: [place] artery [place] vs. transplanted heart: [place] heart Associated angina: without angina Qualified Code(s): I25.10 - Atherosclerotic heart disease of [place] coronary artery without angina pectoris (8) HLD (hyperlipidemia) Code(s): E78.5 - HYPERLIPIDEMIA, UNSPECIFIED Qualifiers: Hyperlipidemia type: pure hypercholesterolemia Qualified Code(s): E78.00 - Pure hypercholesterolemia, unspecified; E78.0 - Pure hypercholesterolemia (9) HTN (hypertension) Code(s): I10 - ESSENTIAL (PRIMARY) HYPERTENSION Qualifiers: Hypertension type: essential hypertension Qualified Code(s): I10 - Essential (primary) hypertension (10) Hypokalemia Code(s): E87.6 - HYPOKALEMIA (11) 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 heart failure Code(s): I51.9 - HEART DISEASE, UNSPECIFIED (12) CVA (cerebral vascular accident) Code(s): I63.9 - CEREBRAL INFARCTION, UNSPECIFIED Qualifiers: CVA mechanism: embolism Precerebral and cerebral artery: anterior cerebral artery Laterality of affected vessel: left Qualified Code(s) : I63.422 - Cerebral infarction due to embolism of left anterior cerebral artery (13) At risk for aspiration Code(s): Z91.89 - OTH PERSONAL RISK FACTORS, NOT ELSEWHERE CLASSIFIED (14) Paroxysmal atrial fibrillation with rapid ventricular response Code(s): I48.0 - PAROXYSMAL ATRIAL FIBRILLATION Assessment/Plan 02/03/2017 Normal biventricular size and fxn, mild NEHEMIAH, mild CT mri of brain showed multiple area of infarct carotid ultrasound is no stenosis 02/11/2017 Normal biventricular size and fxn, mild-mod MR, abnl LV compliance 1. Acute bihemispheric stroke in context of newly diagnosed persistent atrial fibrillation 2. Aphasia, dysphagia, dysphonia at risk of aspiration 3. Acute hypoxic respiratory failure referable to community acquired PNA vs aspiration 4. Coronary artery disease status post CABG, angina pectoris 5. Hypertension 6. Hypercholesterolemia 7. Ascending aortic aneurysm 8. CLL 9. Hypokalemia and hypercalcemia 10. anemia 11. CKD PLAN: 1. Continue Eliquis 5 bid, Lopressor 25 bid and Cardizem IV as needed as hemodynamics tolerate. If hypotensive, would use amiodarone for rate-control. Pressors to maintain MAP>60 mmHg 2. Imbruvica has been d/jose 3. Ascending aortic aneurysm can be followed as outpatient 4. NGT for enteral feeds, MBS when stronger, replete K 5. PT, GI prophylaxis, BD, complete Meropenem course, wean FIO2 as tolerated 6. Plan for transfer to [facility] per family request, case d/w family
[2017-02-14] MEDS ORDERED: DEXAMETHASONE SOD PHOSPHATE 10 MG/1 ML VIAL IVPUSH ONE (10:18)
[2017-02-14] MEDS: MAGNESIUM OXIDE 400 MG TABLET (FP) PO SCH ×2 (11:01→23:48)
[2017-02-14] MEDS: NYSTATIN 100,000 UNIT/GM TOPICAL CREAM 15 GM TUBE TP SCH ×2 (11:01→23:48)
[2017-02-14] MEDS: TAMSULOSIN HCL 0.4 MG CAP.ER.24H (FP) PO SCH (11:01)
[2017-02-14] MEDS: APIXABAN 5 MG TABLET PO SCH ×2 (11:01→23:48)
--- NOTE | 2017-02-14 11:24 | PN ---
Progress Note, Physician Chief Complaint: Unable to obtain, patient lethargic and unable to arouse. Protecting airway. - Current Medication List Current Medications: Active Medications Acetaminophen (Tylenol -) 650 mg PO Q6H PRN PRN Reason: FEVER OR PAIN Last Admin: 02/14/17 02:34 Dose: 650 mg Acetaminophen (Ofirmev Injection -) 1,000 mg IVPB Q6H PRN PRN Reason: FEVER OR PAIN Stop: 02/15/17 02:38 Albuterol Sulfate (Ventolin 0.083% Nebulizer Soln -) 1 amp NEB QIDR [facility] Last Admin: 02/14/17 05:47 Dose: 1 amp Albuterol Sulfate (Ventolin 0.083% Nebulizer Soln -) 1 amp NEB Q4H PRN PRN Reason: SHORT OF BREATH/WHEEZING Apixaban (Eliquis -) 5 mg PO BID [facility] Last Admin: 02/14/17 11:01 Dose: 5 mg Atorvastatin Calcium (Lipitor -) 40 mg PO HS [facility] Last Admin: 02/13/17 21:33 Dose: 40 mg Dexamethasone Sodium Phosphate (Decadron Injection -) 10 mg IVPUSH Q8H-IV ONE Stop: 02/14/17 10:19 Diltiazem HCl (Cardizem Injection -) 10 mg IVPUSH Q4H PRN PRN Reason: Tachycardia >100 Last Admin: 02/13/17 16:37 Dose: 10 mg Heparin Sodium (Porcine) (Heparin -) 1,000 unit IVPUSH PRN PRN PRN Reason: Heparin Meropenem 500 mg/ Dextrose 100 mls @ 100 mls/hr IVPB Q8H-IV [facility] Last Admin: 02/14/17 11:01 Dose: 100 mls/hr Diltiazem HCl 125 mg/ Dextrose 125 mls @ 7.5 mls/hr IVPB TITR [facility]; 7.5 MG/HR PRN Reason: Protocol Last Titration: 02/13/17 22:28 Dose: 10 mg/hr Pantoprazole Sodium (Protonix 40mg Ivpb (Pre-Docked)) 100 mls @ 200 mls/hr IVPB DAILY [facility] Insulin Aspart (Novolog Vial Sliding Scale -) 1 vial SQ BIDAC [facility] PRN Reason: Protocol Last Admin: 02/14/17 07:45 Dose: 4 units Magnesium Oxide (Mag-Ox -) 400 mg PO BID [facility] Last Admin: 02/14/17 11:01 Dose: 400 mg Metoprolol Tartrate (Lopressor -) 25 mg NGT BID [facility] Last Admin: 02/13/17 23:31 Dose: 25 mg Nystatin (Mycostatin Cream -) 1 applic TP BID [facility] Last Admin: 02/14/17 11:01 Dose: 1 applic Ondansetron HCl (Zofran Injection) 4 mg IVPB Q6H PRN PRN Reason: NAUSEA Last Admin: 02/11/17 14:36 Dose: 4 mg Quinapril HCl (Accupril -) 40 mg PO DAILY [facility] Last Admin: 02/13/17 10:13 Dose: Not Given Tamsulosin HCl (Flomax -) 0.4 mg PO DAILY@0830 [facility] Last Admin: 02/14/17 11:01 Dose: 0.4 mg - Objective Vital Signs: Vital Signs Temperature 101.6 F H 02/14/17 06:00 Pulse Rate 90 02/14/17 06:00 Respiratory Rate 27 H 02/14/17 06:00 Blood Pressure 124/65 02/14/17 06:00 O2 Sat by Pulse Oximetry (%) 98 02/13/17 21:00 Constitutional: Yes: Other (obtunded) Cardiovascular: Yes: Regular Rate and Rhythm. No: Gallop, Murmur, Rub Respiratory: Yes: On Venti-Mask, Rhonchi, Tachypnea. No: Rales, Wheezes Gastrointestinal: Yes: Normal Bowel Sounds, Soft. No: Distention, Tenderness Extremities: Yes: WNL Edema: No Labs: CBC, BMP 02/14/17 05:10 02/14/17 05:10 Problem List - Problems (1) Paroxysmal atrial fibrillation with rapid ventricular response Code(s): I48.0 - PAROXYSMAL ATRIAL FIBRILLATION (2) CVA (cerebral vascular accident) Code(s): I63.9 - CEREBRAL INFARCTION, UNSPECIFIED Qualifiers: CVA mechanism: embolism Precerebral and cerebral artery: anterior cerebral artery Laterality of affected vessel: left Qualified Code(s) : I63.422 - Cerebral infarction due to embolism of left anterior cerebral artery (3) Acute respiratory failure Code(s): J96.00 - ACUTE RESPIRATORY FAILURE, UNSP W HYPOXIA OR HYPERCAPNIA (4) Pneumonia, community acquired Code(s): J18.9 - PNEUMONIA, UNSPECIFIED ORGANISM (5) CKD (chronic kidney disease) Code(s): N18.9 - CHRONIC KIDNEY DISEASE, UNSPECIFIED Qualifiers: Chronic kidney disease stage: stage 2 (mild) Qualified Code(s): N18.2 - Chronic kidney disease, stage 2 (mild) (6) CLL (chronic lymphocytic leukemia) Code(s): C91.10 - CHRONIC LYMPHOCYTIC LEUK OF B-CELL TYPE NOT ACHIEVE REMIS (7) CAD (coronary artery disease) Code(s): I25.10 - ATHSCL HEART DISEASE OF [place] CORONARY ARTERY W/O ANG PCTRS Qualifiers: Coronary Disease-Associated Artery/Lesion type: [place] artery [place] vs. transplanted heart: [place] heart Associated angina: without angina Qualified Code(s): I25.10 - Atherosclerotic heart disease of [place] coronary artery without angina pectoris (8) HLD (hyperlipidemia) Code(s): E78.5 - HYPERLIPIDEMIA, UNSPECIFIED Qualifiers: Hyperlipidemia type: pure hypercholesterolemia Qualified Code(s): E78.00 - Pure hypercholesterolemia, unspecified; E78.0 - Pure hypercholesterolemia (9) HTN (hypertension) Code(s): I10 - ESSENTIAL (PRIMARY) HYPERTENSION Qualifiers: Hypertension type: essential hypertension Qualified Code(s): I10 - Essential (primary) hypertension (10) Hypercalcemia Code(s): E83.52 - HYPERCALCEMIA (11) Hypophosphatemia Code(s): E83.39 - OTHER DISORDERS OF PHOSPHORUS METABOLISM Assessment/Plan (1) Acute respiratory failure -worsening but not requiring intubation -case d/w pulmonary -CT scan read reviewed (2) Pneumonia, community acquired Assessment/Plan: -ID following -CT scan consistent with pneumonia -continue meropenem, vancomycin discontinued Code(s): J18.9 - PNEUMONIA, UNSPECIFIED ORGANISM (3) CKD (chronic kidney disease) Assessment/Plan: -at baseline -monitor Code(s): N18.9 - CHRONIC KIDNEY DISEASE, UNSPECIFIED Qualifiers: Chronic kidney disease stage: stage 2 (mild) Qualified Code(s): N18.2 - Chronic kidney disease, stage 2 (mild) (4) CLL (chronic lymphocytic leukemia) Assessment/Plan: -ibrutinib held -oncology following Code(s): C91.10 - CHRONIC LYMPHOCYTIC LEUK OF B-CELL TYPE NOT ACHIEVE REMIS (5) CAD (coronary artery disease) Assessment/Plan: -quiescent, no chest pain -continue home regimen Code(s): I25.10 - ATHSCL HEART DISEASE OF [place] CORONARY ARTERY W/O ANG PCTRS (6) HLD (hyperlipidemia) Assessment/Plan: -lipitor increased to 40mg daily -however aphasic secondary to stroke -may need feeding tube in short term for oral medications Code(s): E78.5 - HYPERLIPIDEMIA, UNSPECIFIED (7) HTN (hypertension) Assessment/Plan: -controlled -on diltiazem gtt and metoprolol Code(s): I10 - ESSENTIAL (PRIMARY) HYPERTENSION (8) Hypercalcemia -stable (9) Acute CVA with obtundation -CT scan repeated -showing vasogenic edema without hemorrhagic conversion -start decadron (10) Paroxysmal atrial fibrillation -continue metoprolol and diltiazem gtt -on jayleen case d/w daughter, planning for transfer to [facility] 37 minutes in critical care time spent with this patient
--- NOTE | 2017-02-14 12:32 | PN ---
Teaching Attending Note Name of Resident: Solo Viera ATTENDING PHYSICIAN STATEMENT I saw and evaluated the patient. I reviewed the resident's note and discussed the case with the resident. I agree with the resident's findings and plan as documented. SUBJECTIVE: Patient seen and examined in the ICU. Further clinical decline. Noted to be less responsive with increase in tachypnea (did not desaturate). Sent for STAT head/chest CT. Daughter is at the bedside. Update of his condition given. Apparently efforts to transfer to [facility] are still being made. Intake & Output 02/11/17 02/12/17 02/13/17 02/14/17 23:59 23:59 23:59 23:59 Intake Total 1040 1050 2849 Output Total 600 Balance 1040 1050 2849 -600 Weight 160 lb 12.8 oz 148 lb 5.938 oz 151 lb 154 lb Last Vital Signs Temp Pulse Resp BP Pulse Ox 101.6 F H 71 27 H 124/65 99 02/14/17 06:00 02/14/17 10:25 02/14/17 06:00 02/14/17 06:00 02/14/17 10:25 Active Medications Acetaminophen (Tylenol -) 650 mg PO Q6H PRN PRN Reason: FEVER OR PAIN Last Admin: 02/14/17 02:34 Dose: 650 mg Acetaminophen (Ofirmev Injection -) 1,000 mg IVPB Q6H PRN PRN Reason: FEVER OR PAIN Stop: 02/15/17 02:38 Albuterol Sulfate (Ventolin 0.083% Nebulizer Soln -) 1 amp NEB QIDR FREDY Last Admin: 02/14/17 11:05 Dose: 1 amp Albuterol Sulfate (Ventolin 0.083% Nebulizer Soln -) 1 amp NEB Q4H PRN PRN Reason: SHORT OF BREATH/WHEEZING Apixaban (Eliquis -) 5 mg PO BID FREDY Last Admin: 02/14/17 11:01 Dose: 5 mg Atorvastatin Calcium (Lipitor -) 40 mg PO HS [facility] Last Admin: 02/13/17 21:33 Dose: 40 mg Dexamethasone Sodium Phosphate (Decadron Injection -) 10 mg IVPUSH Q8H-IV ONE Stop: 02/14/17 10:19 Diltiazem HCl (Cardizem Injection -) 10 mg IVPUSH Q4H PRN PRN Reason: Tachycardia >100 Last Admin: 02/13/17 16:37 Dose: 10 mg Heparin Sodium (Porcine) (Heparin -) 1,000 unit IVPUSH PRN PRN PRN Reason: Heparin Meropenem 500 mg/ Dextrose 100 mls @ 100 mls/hr IVPB Q8H-IV FREDY Last Admin: 02/14/17 11:01 Dose: 100 mls/hr Diltiazem HCl 125 mg/ Dextrose 125 mls @ 7.5 mls/hr IVPB TITR FREDY; 7.5 MG/HR PRN Reason: Protocol Last Titration: 02/13/17 22:28 Dose: 10 mg/hr Pantoprazole Sodium (Protonix 40mg Ivpb (Pre-Docked)) 100 mls @ 200 mls/hr IVPB DAILY FREDY Insulin Aspart (Novolog Vial Sliding Scale -) 1 vial SQ BIDAC FREDY PRN Reason: Protocol Last Admin: 02/14/17 07:45 Dose: 4 units Magnesium Oxide (Mag-Ox -) 400 mg PO BID [facility] Last Admin: 02/14/17 11:01 Dose: 400 mg Metoprolol Tartrate (Lopressor -) 25 mg NGT BID [facility] Last Admin: 02/13/17 23:31 Dose: 25 mg Nystatin (Mycostatin Cream -) 1 applic TP BID [facility] Last Admin: 02/14/17 11:01 Dose: 1 applic Ondansetron HCl (Zofran Injection) 4 mg IVPB Q6H PRN PRN Reason: NAUSEA Last Admin: 02/11/17 14:36 Dose: 4 mg Quinapril HCl (Accupril -) 40 mg PO DAILY [facility] Last Admin: 02/13/17 10:13 Dose: Not Given Tamsulosin HCl (Flomax -) 0.4 mg PO DAILY@0830 [facility] Last Admin: 02/14/17 11:01 Dose: 0.[address]: no significant change in bilateral ischemic CVAs / NO bleed ? (?) some mild increase in vasogenic edema Chest CT : Bilateral dense consolidations/infiltrates Constitutional: Yes: Lethargic, poorly repsonsive on 50% VM O2, right lateral gaze Neck: Yes: Supple Cardiovascular: Yes: Regular Rate and Rhythm Respiratory: Yes: Bilateral course rhonchi, 40% VM O2 Gastrointestinal: Yes: Soft, (+) Bowel Sounds Edema: No Labs: Laboratory Results - last 24 hr 02/13/17 02/13/17 02/14/17 16:44 18:20 03:14 WBC RBC Hgb Hct MCV MCH MCHC RDW Plt Count MPV PTT (Actin FS) Sodium 139 Potassium 3.3 L Chloride 104 Carbon Dioxide 24 Anion Gap 11 BUN 36 H Creatinine 1.5 H POC Glucometer [phone] Random Glucose 296 H Calcium 7.6 L 02/14/17 02/14/17 02/14/17 05:10 05:10 05:10 WBC 20.1 H D RBC 3.94 L Hgb 10.8 L Hct 33.2 L MCV 84.3 MCH 27.4 MCHC 32.5 RDW 17.2 H Plt Count 158 MPV 8.7 PTT (Actin FS) 34.6 H D Sodium 140 Potassium 3.3 L Chloride 104 Carbon Dioxide 26 Anion Gap 10 BUN 37 H Creatinine 1.5 H POC Glucometer Random Glucose 287 H Calcium 7.9 L 02/14/17 07:01 WBC RBC Hgb Hct MCV MCH MCHC RDW Plt Count MPV PTT (Actin FS) Sodium Potassium Chloride Carbon Dioxide Anion Gap BUN Creatinine POC Glucometer [phone] Random Glucose Calcium Problem List - Problems (1) Acute respiratory failure Code(s): J96.00 - ACUTE RESPIRATORY FAILURE, UNSP W HYPOXIA OR HYPERCAPNIA (2) Ascending aortic aneurysm Code(s): I71.2 - THORACIC AORTIC ANEURYSM, WITHOUT RUPTURE (3) CKD (chronic kidney disease) Code(s): N18.9 - CHRONIC KIDNEY DISEASE, UNSPECIFIED Qualifiers: Chronic kidney disease stage: stage 2 (mild) Qualified Code(s): N18.2 - Chronic kidney disease, stage 2 (mild) (4) CLL (chronic lymphocytic leukemia) Code(s): C91.10 - CHRONIC LYMPHOCYTIC LEUK OF B-CELL TYPE NOT ACHIEVE REMIS (5) Hx of CABG Code(s): Z95.1 - PRESENCE OF AORTOCORONARY BYPASS GRAFT (6) Pneumonia, community acquired Code(s): J18.9 - PNEUMONIA, UNSPECIFIED ORGANISM (7) CAD (coronary artery disease) Code(s): I25.10 - ATHSCL HEART DISEASE OF [place] CORONARY ARTERY W/O ANG PCTRS Qualifiers: Coronary Disease-Associated Artery/Lesion type: [place] artery [place] vs. transplanted heart: [place] heart Associated angina: without angina Qualified Code(s): I25.10 - Atherosclerotic heart disease of [place] coronary artery without angina pectoris (8) HLD (hyperlipidemia) Code(s): E78.5 - HYPERLIPIDEMIA, UNSPECIFIED Qualifiers: Hyperlipidemia type: pure hypercholesterolemia Qualified Code(s): E78.00 - Pure hypercholesterolemia, unspecified; E78.0 - Pure hypercholesterolemia (9) HTN (hypertension) Code(s): I10 - ESSENTIAL (PRIMARY) HYPERTENSION Qualifiers: Hypertension type: essential hypertension Qualified Code(s): I10 - Essential (primary) hypertension (10) Hypokalemia Code(s): E87.6 - HYPOKALEMIA (11) 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 heart failure Code(s): I51.9 - HEART DISEASE, UNSPECIFIED (12) CVA (cerebral vascular accident) Code(s): I63.9 - CEREBRAL INFARCTION, UNSPECIFIED Qualifiers: CVA mechanism: embolism Precerebral and cerebral artery: anterior cerebral artery Laterality of affected vessel: left Qualified Code(s) : I63.422 - Cerebral infarction due to embolism of left anterior cerebral artery (13) At risk for aspiration Code(s): Z91.89 - OTH PERSONAL RISK FACTORS, NOT ELSEWHERE CLASSIFIED (14) Paroxysmal atrial fibrillation with rapid ventricular response Code(s): I48.0 - PAROXYSMAL ATRIAL FIBRILLATION Assessment/Plan 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 AFib -> now NSR Aphasia/dysphagia Community Acquired PNA Coronary artery disease /CABG Angina pectoris Hypertension Hypercholesterolemia Ascending aortic aneurysm CLL Anemia CKD Aspiration Pneumonitis ABX per ID Eliquis Metoprolol for rate control -> If needed can use Amiodarone Hold Accupril Atorvastatin Hold NGT feeds Trial of Decadron Due to relative hypotension and renal insufficiency and electrolyte abnormality -> Will not give him a trial of mannitol Will likely need better access -> will D/W daughter/NOK If the patient is to be moved to [facility], I would suggest intubation prior to transfer due to his declining inability to protect his airway I have mentioned advanced directives with his daughter. For now, the family wants all possible efforts to be made. Unfortunately, due to progressive clinical/neurologic deterioration, I would suggest more conservative measures of care but for now will comply with the family's wishes. Dr Martinez Critical Care Total Critical Care Time (in minutes): 35 Critical Care Statement: The care of this patient involved high complexity decision making to prevent further life threatening deterioration of the patient 's condition and/or to evalute & treat vital organ system(s) failure or risk of failure.
--- NOTE | 2017-02-14 14:05 | PROC ---
Central Line Insertion Indication: CVP Monitoring, Poor Venous Access, Sepsis Risks and Benefits Explained: Yes Consent on Chart: Yes Central Line: Triple Lumen Catheter Anesthesia: 1% Lidocaine Position: Right Internal Jugular Post Insertion: Yes: Bilateral Breath Sounds, Bilateral Chest Expansion, Chest X-Ray Ordered Sterile Dressing Applied: Yes
--- NOTE | 2017-02-14 14:15 | PN ---
Progress Note (short form) - Note Progress Note: PULM/CCM Discussed Mr Lewis's case with the stroke atteding at [facility] (Dr Steiner). In his opinion, there is no benefit for transfer to [facility] for further stroke management. He feels the main issue was to determine AC, which he has already been started on. Also, there is no evidenced based data for use of steroids or mannitol in this scenario. I relayed this information to the patient's daughter and he will continued to be taken care for at [facility] unless there is a change in condition and there is a benefit from tertiary care transfer. Dr Martinez
--- NOTE | 2017-02-14 14:50 | PN ---
Physical Exam: SUBJECTIVE: 76 year old male with a past medical history of hypertension, hyperlipidemia, chronic lymphocytic leukemia/lymphoma, peptic ulcer, and duodenal adenoma with bilateral strokes and worsening neurological/pulmonary status. Today he feels more congested with worsening lateral gaze palsy, L sided paresis, fever, tachypnea, leukocytosis and urinary retention. OBJECTIVE: Vital Signs Period Temp Pulse Resp BP Sys/Bull Pulse Ox Last 24 Hr 99.9 F-101.6 F 71-125 22-31 105-125/59-74 98-99 GENERAL: The patient is awake, not alert or oriented to person, place, or time. Patient unable to communicate. HEAD: Normal with no signs of trauma. EYES: PERRL, R conjugate eye deviation, sclera anicteric, conjunctiva clear. No ptosis. ENT: Ears normal, nares patent, oropharynx clear without exudates, moist mucous membranes. NECK: Trachea midline, full range of motion, supple. LUNGS: Breath sounds equal, diminished at the lung bases, no accessory muscle use. HEART: Regular rate and rhythm, S1, S2 without murmur, rub or gallop. ABDOMEN: Soft, nontender, nondistended, normoactive bowel sounds, no guarding, no rebound, no hepatosplenomegaly, no masses. EXTREMITIES: 2+ pulses, warm, well-perfused, no edema. NEUROLOGICAL: Cranial nerves II through XII unable to be assessed accurately due to mental status. Dysarthria noted. gait not observed. 0/5 muscle strength noted in R upper and lower extremities, 0/5 in L upper and lower extremities. SKIN: Warm, dry, normal turgor, no rashes or lesions noted CBCD WBC 20.1 K/mm3 (4.0-10.0) H D 02/14/17 05:10 RBC 3.94 M/mm3 (4.00-5.60) L 02/14/17 05:10 Hgb 10.8 GM/dL (11.7-16.9) L 02/14/17 05:10 Hct 33.2 % (35.4-49) L 02/14/17 05:10 MCV 84.3 fl (80-96) 02/14/17 05:10 MCHC 32.5 g/dl (32.0-35.9) 02/14/17 05:10 RDW 17.2 % (11.9-15.9) H 02/14/17 05:10 Plt Count 158 K/MM3 (134-434) 02/14/17 05:10 MPV 8.7 fl (7.5-11.1) 02/14/17 05:10 CMP Sodium 140 mmol/L (136-145) 02/14/17 05:10 Potassium 3.3 mmol/L (3.5-5.1) L 02/14/17 05:10 Chloride 104 mmol/L (98-107) 02/14/17 05:10 Carbon Dioxide 26 mmol/L (21-32) 02/14/17 05:10 Anion Gap 10 (8-16) 02/14/17 05:10 BUN 37 mg/dL (7-18) H 02/14/17 05:10 Creatinine 1.5 mg/dL (0.7-1.3) H 02/14/17 05:10 Creat Clearance w eGFR 42.01 (>60) 02/13/17 05:05 Calcium 7.9 mg/dL (8.5-10.1) L 02/14/17 05:10 Total Bilirubin 0.4 mg/dL (0.2-1.0) D 02/13/17 05:05 AST 28 U/L (15-37) 02/13/17 05:05 ALT 32 U/L (12-78) 02/13/17 05:05 Alkaline Phosphatase 61 U/L (45-117) 02/13/17 05:05 Total Protein 5.2 g/dl (6.4-8.2) L 02/13/17 05:05 Albumin 1.8 g/dl (3.4-5.0) L 02/13/17 05:05 Active Medications Generic Name Dose Route Start Last Admin Trade Name Freq PRN Reason Stop Dose Admin Acetaminophen 650 mg 02/04/17 12:32 02/14/17 02:34 Tylenol - PO 650 mg Q6H PRN Administration FEVER OR PAIN Acetaminophen 1,000 mg 02/14/17 08:37 Ofirmev Injection - IVPB 02/15/17 02:38 Q6H PRN FEVER OR PAIN Albuterol Sulfate 1 amp 02/10/17 06:00 02/14/17 11:05 Ventolin 0.083% Nebulizer Soln - NEB 1 amp QIDR FREDY Administration Albuterol Sulfate 1 amp 02/10/17 14:06 Ventolin 0.083% Nebulizer Soln - NEB Q4H PRN SHORT OF BREATH/WHEEZING Apixaban 5 mg 02/13/17 22:00 02/14/17 11:01 Eliquis - PO 5 mg BID FREDY Administration Atorvastatin Calcium 40 mg 02/10/17 22:00 02/13/17 21:33 Lipitor - PO 40 mg HS FREDY Administration Dexamethasone Sodium Phosphate 10 mg 02/14/17 10:18 Decadron Injection - IVPUSH 02/14/17 10:19 Q8H-IV ONE Diltiazem HCl 10 mg 02/13/17 05:42 02/13/17 16:37 Cardizem Injection - IVPUSH 10 mg Q4H PRN Administration Tachycardia >100 Heparin Sodium (Porcine) 1,000 unit 02/12/17 13:05 Heparin - IVPUSH PRN PRN Heparin Meropenem 500 mg/ Dextrose 100 mls @ 100 mls/hr 02/10/17 15:45 02/14/17 11:01 IVPB 100 mls/hr Q8H-IV FREDY Administration Diltiazem HCl 125 mg/ Dextrose 125 mls @ 7.5 mls/hr 02/13/17 16:45 02/13/17 22: 28 IVPB 10 mg/hr TITR FREDY Titration Protocol 7.5 MG/HR Pantoprazole Sodium 100 mls @ 200 mls/hr 02/14/17 10:00 Protonix 40mg Ivpb (Pre-Docked) IVPB DAILY FREDY Insulin Aspart 1 vial 02/09/17 16:30 02/14/17 07:45 Novolog Vial Sliding Scale - SQ 4 units BIDAC FREDY Administration Protocol Magnesium Oxide 400 mg 02/04/17 22:00 02/14/17 11:01 Mag-Ox - PO 400 mg BID FREDY Administration Metoprolol Tartrate 25 mg 02/13/17 22:00 02/14/17 10:00 Lopressor - NGT Not Given BID FREDY Nystatin 1 applic 02/12/17 23:15 02/14/17 11:01 Mycostatin Cream - TP 1 applic BID FREDY Administration Ondansetron HCl 4 mg 02/10/17 19:29 02/11/17 14:36 Zofran Injection IVPB 4 mg Q6H PRN Administration NAUSEA Quinapril HCl 40 mg 02/05/17 10:00 02/14/17 10:00 Accupril - PO Not Given DAILY FREDY Tamsulosin HCl 0.4 mg 02/05/17 08:30 02/14/17 11:01 Flomax - PO 0.4 mg DAILY@0830 FREDY Administration ASSESSMENT/PLAN: 76 year old male pmh HTN, HLD, CLL, peptic ulcer, duodenal adenoma in the ICU for bihemispheric strokes and paroxysmal atrial fibrillation with rapid ventricular response Neuro: patient with bilateral hemispheric strokes causing R sided weakness and L sided weakness, EOM weakness with worsening right lateral gaze palsy, and dysphagia -cont Eliquis 5mg NGT BID -cont ondansetron Q6H PRN Cardiovascular: new onset atrial fibrillation with rapid ventricular response -cont cardizem 10mg IV -hold metroprolol, quinapril, tamsulosin, amlodipine -continue atorvastatin -BP dropped to 90/70 today, give 2 boluses 500 each Pulmonary: respiratory distress likely 2/2 pneumonia -continue meropenem -DC Vanc -continue albuterol FEN: -pt with dysphagia, cont NGT feeds based on speech/swallow recommendations -NaCl 1000 @ 100ml/hr with KCl 20mEq Dispo: -Informed that patient's family plan on transfer to [facility]. Pending possible transfer Problem List - Problems (1) Acute respiratory failure Code(s): J96.00 - ACUTE RESPIRATORY FAILURE, UNSP W HYPOXIA OR HYPERCAPNIA (2) CVA (cerebral vascular accident) Code(s): I63.9 - CEREBRAL INFARCTION, UNSPECIFIED Qualifiers: CVA mechanism: embolism Precerebral and cerebral artery: anterior cerebral artery Laterality of affected vessel: left Qualified Code(s) : I63.422 - Cerebral infarction due to embolism of left anterior cerebral artery (3) Paroxysmal atrial fibrillation with rapid ventricular response Code(s): I48.0 - PAROXYSMAL ATRIAL FIBRILLATION (4) Pneumonia, community acquired Code(s): J18.9 - PNEUMONIA, UNSPECIFIED ORGANISM Visit type - Emergency Visit Emergency Visit: No - New Patient This patient is new to me today: Yes Date on this admission: 02/14/17 - Critical Care Critical Care patient: Yes Total Critical Care Time (in minutes): 45 Critical Care Statement: The care of this patient involved high complexity decision making to prevent further life threatening deterioration of the patient 's condition and/or to evalute & treat vital organ system(s) failure or risk of failure.
[2017-02-14] MEDS: PANTOPRAZOLE SODIUM 100 ML IVPB SCH (15:00)
[2017-02-14] MEDS: DILTIAZEM INJECTION 125 MG in DEXTROSE 5%-WATER - 100 ML IVPB SCH (17:19)
[2017-02-14] MEDS: SODIUM CHLORIDE 0.9%/KCL 1,000 ML IV SCH (17:30)
[2017-02-14] MEDS ORDERED: DEXAMETHASONE SOD PHOSPHATE 10 MG/1 ML VIAL IVPB SCH (18:00)
--- NOTE | 2017-02-14 18:02 | PN ---
Progress Note (short form) - Note Progress Note: cc initial right sided arm and leg weakness x february 10 and detioration of mental status 76 year old male history of CAD, htn , hyperlipidemia admitted for pnemonia .and found to have right sided hemiparesis, mri showed multiple bi hemispheric stroke. Past Medical History as above and CLL, Polycythemia vera , renal insufficiency yesterday he was sleepy when I saw him and later he become more confused and found to have lung crackles , and was later transferred to icu. His mental status has detiorated since yesterday, now he is not tracking objected, and he is obtunded. There is no seizures or fever, his bp has been 120 /61. Patient iv heparin has been discontinue and he is on oral anticoagulation Neurological Examination Patient is obtunded and not following command as gotten worse since yesterda mild right sided facial paralysis and pupils are reactive no neck stiffness, gag reflex is present ,corneal reflex is present mri of brain showed multiple area of infarct carotid ultrasound is no stenosis repeat ct scan showed multiple non hemorrhagic infarct , no acute bleed Assessment and Plan- Left mca stroke causing right sided hemiparesis ( risk factor cad, htn hlp ), his mental status has detiorated as he has bihemispheric stroke, his ct scan showed multiple stroke but there is no bleed. afebril and protecting his airway. primary team has spoken to stroke team at [facility] and he would not benefit from transfer at this time. he has been started on eliquis --continue PT , DVT prophylaxis, -- stat ct scan -- continue same supportive care - overall prognosis was discussed with daughter at bed side and I have also spoken to her yesterday. I would be away , please feel free to reach out to me if you have any question Or contracts analyst team can be contacted Thanks you so much Abilio Granado MD
[2017-02-14] MEDS ORDERED: PT OWN MED DRAWER 7, Y5N ONE (18:46)
[2017-02-14] MEDS ORDERED: SODIUM CHLORIDE 500 ML IV STA (19:04)
[2017-02-14] MEDS: ATORVASTATIN CA 40 MG TABLET (FP) PO SCH (23:48)
[2017-02-15] MEDS: ACETAMINOPHEN 1000 MG/100 ML VIAL (NON FORMULARY) IVPB PRN (01:32)
[2017-02-15] MEDS: MEROPENEM 500 MG in DEXTROSE 5%-WATER - 100 ML IVPB SCH ×3 (01:32→17:28)
[2017-02-15 05:50] LABS: MEAN CELL VOLUME 84.4 fl (80-96); MEAN PLT VOLUME 8.8 fl (7.5-11.1); PLATELET COUNT 116 K/MM3 (134-434); WHITE BLOOD COUNT 14.7 K/mm3 (4.0-10.0)
[2017-02-15] MEDS: ALBUTEROL SO4 0.083% IH SOL 2.5 MG/3 ML VIAL.NEB. NEB SCH ×2 (06:04)
[2017-02-15 06:12] LABS: ANION GAP 9 (8-16); CALCIUM 7.2 mg/dL (8.5-10.1); CO2 23 mmol/L (21-32); CREATININE 1.4 mg/dL (0.7-1.3); GLUCOSE,RANDOM 225 mg/dL (74-106)
[2017-02-15] MEDS: INSULIN SLIDING SCALE (NOVOLOG) 1 VIAL SQ SCH ×2 (07:27→17:31)
--- NOTE | 2017-02-15 07:28 | PN ---
Progress Note, Physician Chief Complaint: ID No major change in overall condition Obtunded on ventim mask Meropenem empiric therapy fever infiltrates day 5 Rx temps ? coming down - Current Medication List Current Medications: Active Medications Acetaminophen (Tylenol -) 650 mg PO Q6H PRN PRN Reason: FEVER OR PAIN Last Admin: 02/14/17 02:34 Dose: 650 mg Albuterol Sulfate (Ventolin 0.083% Nebulizer Soln -) 1 amp NEB Q4H PRN PRN Reason: SHORT OF BREATH/WHEEZING Apixaban (Eliquis -) 5 mg PO BID FREDY Last Admin: 02/14/17 23:48 Dose: 5 mg Atorvastatin Calcium (Lipitor -) 40 mg PO HS FREDY Last Admin: 02/14/17 23:48 Dose: 40 mg Diltiazem HCl (Cardizem Injection -) 10 mg IVPUSH Q4H PRN PRN Reason: Tachycardia >100 Last Admin: 02/13/17 16:37 Dose: 10 mg Heparin Sodium (Porcine) (Heparin -) 1,000 unit IVPUSH PRN PRN PRN Reason: Heparin Meropenem 500 mg/ Dextrose 100 mls @ 100 mls/hr IVPB Q8H-IV FREDY Last Admin: 02/15/17 01:32 Dose: 100 mls/hr Diltiazem HCl 125 mg/ Dextrose 125 mls @ 7.5 mls/hr IVPB TITR FREDY; 7.5 MG/HR PRN Reason: Protocol Last Admin: 02/14/17 17:19 Dose: Not Given Pantoprazole Sodium (Protonix 40mg Ivpb (Pre-Docked)) 100 mls @ 200 mls/hr IVPB DAILY FREDY Last Admin: 02/14/17 15:00 Dose: 200 mls/hr Potassium Chloride/Sodium Chloride (Ns+20 Meq Kcl -) 1,000 mls @ 100 mls/hr IV ASDIR FREDY Last Admin: 02/14/17 17:30 Dose: 100 mls/hr Insulin Aspart (Novolog Vial Sliding Scale -) 1 vial SQ BIDAC FREDY PRN Reason: Protocol Last Admin: 02/14/17 17:18 Dose: 2 units Magnesium Oxide (Mag-Ox -) 400 mg PO BID FREDY Last Admin: 02/14/17 23:48 Dose: 400 mg Metoprolol Tartrate (Lopressor -) 25 mg NGT BID FREDY Last Admin: 02/14/17 21:34 Dose: Not Given Nystatin (Mycostatin Cream -) 1 applic TP BID REPLACED BY [facility] Last Admin: 02/14/17 23:48 Dose: 1 applic Ondansetron HCl (Zofran Injection) 4 mg IVPB Q6H PRN PRN Reason: NAUSEA Last Admin: 02/11/17 14:36 Dose: 4 mg Quinapril HCl (Accupril -) 40 mg PO DAILY REPLACED BY [facility] Last Admin: 02/14/17 10:00 Dose: Not Given Tamsulosin HCl (Flomax -) 0.4 mg PO DAILY@0830 REPLACED BY [facility] Last Admin: 02/14/17 11:01 Dose: 0.4 mg - Objective Vital Signs: Vital Signs Temperature 99.5 F 02/15/17 06:00 Pulse Rate 88 02/15/17 06:00 Respiratory Rate 22 02/15/17 06:00 Blood Pressure 109/57 02/15/17 06:00 O2 Sat by Pulse Oximetry (%) 99 02/14/17 21:00 Constitutional: Yes: No Distress, Other (Venti mask) Neck: Yes: WNL, Supple, Other (Central line) Cardiovascular: Yes: Regular Rate and Rhythm, S1, S2 Respiratory: Yes: Other (Cource rhocnhi bilaterally) Gastrointestinal: Yes: WNL, Normal Bowel Sounds, Soft. No: Tenderness Edema: No Labs: CBC, BMP 02/15/17 05:10 02/15/17 05:10 Problem List - Problems (1) CLL (chronic lymphocytic leukemia) Code(s): C91.10 - CHRONIC LYMPHOCYTIC LEUK OF B-CELL TYPE NOT ACHIEVE REMIS (2) Pneumonia, community acquired Code(s): J18.9 - PNEUMONIA, UNSPECIFIED ORGANISM (3) CVA (cerebral vascular accident) Code(s): I63.9 - CEREBRAL INFARCTION, UNSPECIFIED Qualifiers: CVA mechanism: embolism Precerebral and cerebral artery: anterior cerebral artery Laterality of affected vessel: left Qualified Code(s) : I63.422 - Cerebral infarction due to embolism of left anterior cerebral artery (4) Chronic leukemia Code(s): C95.10 - CHRONIC LEUKEMIA OF UNSP CELL TYPE NOT ACHIEVE REMISSION (5) Atrial fibrillation Code(s): I48.91 - UNSPECIFIED ATRIAL FIBRILLATION Assessment/Plan Microbiology 02/12/17 18:00 Blood - Peripheral Venous Blood Culture - Preliminary NO GROWTH OBTAINED AFTER 48 HOURS, INCUBATION TO CONTINUE FOR 3 DAYS. 02/12/17 18:00 Blood - Peripheral Venous Blood Culture - Preliminary NO GROWTH OBTAINED AFTER 48 HOURS, INCUBATION TO CONTINUE FOR 3 DAYS. 02/11/17 16:30 Urine - Urine - Catheterized Urine Culture - Preliminary Laboratory Tests 02/15/17 02/15/17 05:10 05:10 WBC 14.7 H Hgb 8.4 L D Hct 26.2 L D Plt Count 116 L D BUN 41 H Creatinine 1.4 H Assessment MCA stroke Bilateral consolidations ( Impressive CT scan with adenopathy) CLL Atrial fibrillation Plan Would be to continue antibiotics/ anticoagulation Naomi CHATMAN
[2017-02-15] MEDS ORDERED: PT OWN MED DRAWER 7, Y5N ONE ×3 (09:00→22:33)
[2017-02-15] MEDS: METOPROLOL TARTRATE 25 MG TABLET (FP) NGT SCH ×2 (09:08→22:42)
[2017-02-15] MEDS: TAMSULOSIN HCL 0.4 MG CAP.ER.24H (FP) PO SCH (09:08)
[2017-02-15] MEDS: MAGNESIUM OXIDE 400 MG TABLET (FP) PO SCH ×2 (09:08→22:41)
[2017-02-15] MEDS: PANTOPRAZOLE SODIUM 100 ML IVPB SCH (09:11)
[2017-02-15] MEDS: NYSTATIN 100,000 UNIT/GM TOPICAL CREAM 15 GM TUBE TP SCH ×2 (09:11→22:42)
--- NOTE | 2017-02-15 09:31 | PN ---
Progress Note (short form) - Note Progress Note: Patient seen and examined in the ICU. No improvement in neuro exam. Minimal decerebrate response to noxious stimuli. Still protecting his airway on 50% VM. Required several fluid boluses overnight but did not require pressors. Intake & Output 02/12/17 02/13/17 02/14/17 02/15/17 23:59 23:59 23:59 23:59 Intake Total 1050 2849 6420 Output Total 1100 1025 Balance 1050 2849 5320 -1025 Weight 148 lb 5.938 oz 151 lb 154 lb 156 lb Last Vital Signs Temp Pulse Resp BP Pulse Ox 99.5 F 88 22 109/57 99 02/15/17 06:00 02/15/17 06:00 02/15/17 06:00 02/15/17 06:00 02/14/17 21:00 Active Medications Acetaminophen (Tylenol -) 650 mg PO Q6H PRN PRN Reason: FEVER OR PAIN Last Admin: 02/14/17 02:34 Dose: 650 mg Albuterol Sulfate (Ventolin 0.083% Nebulizer Soln -) 1 amp NEB Q4H PRN PRN Reason: SHORT OF BREATH/WHEEZING Apixaban (Eliquis -) 5 mg PO BID FREDY Last Admin: 02/14/17 23:48 Dose: 5 mg Atorvastatin Calcium (Lipitor -) 40 mg PO HS FREDY Last Admin: 02/14/17 23:48 Dose: 40 mg Diltiazem HCl (Cardizem Injection -) 10 mg IVPUSH Q4H PRN PRN Reason: Tachycardia >100 Last Admin: 02/13/17 16:37 Dose: 10 mg Heparin Sodium (Porcine) (Heparin -) 1,000 unit IVPUSH PRN PRN PRN Reason: Heparin Meropenem 500 mg/ Dextrose 100 mls @ 100 mls/hr IVPB Q8H-IV FREDY Last Admin: 02/15/17 09:09 Dose: 100 mls/hr Diltiazem HCl 125 mg/ Dextrose 125 mls @ 7.5 mls/hr IVPB TITR FREDY; 7.5 MG/HR PRN Reason: Protocol Last Admin: 02/14/17 17:19 Dose: Not Given Pantoprazole Sodium (Protonix 40mg Ivpb (Pre-Docked)) 100 mls @ 200 mls/hr IVPB DAILY FERDY Last Admin: 02/15/17 09:11 Dose: 200 mls/hr Potassium Chloride/Sodium Chloride (Ns+20 Meq Kcl -) 1,000 mls @ 100 mls/hr IV ASDIR [facility] Last Admin: 02/14/17 17:30 Dose: 100 mls/hr Insulin Aspart (Novolog Vial Sliding Scale -) 1 vial SQ BIDAC [facility] PRN Reason: Protocol Last Admin: 02/15/17 07:27 Dose: 4 units Magnesium Oxide (Mag-Ox -) 400 mg PO BID [facility] Last Admin: 02/15/17 09:08 Dose: 400 mg Metoprolol Tartrate (Lopressor -) 25 mg NGT BID [facility] Last Admin: 02/15/17 09:08 Dose: 25 mg Nystatin (Mycostatin Cream -) 1 applic TP BID [facility] Last Admin: 02/15/17 09:11 Dose: 1 applic Ondansetron HCl (Zofran Injection) 4 mg IVPB Q6H PRN PRN Reason: NAUSEA Last Admin: 02/11/17 14:36 Dose: 4 mg Quinapril HCl (Accupril -) 40 mg PO DAILY [facility] Last Admin: 02/14/17 10:00 Dose: Not Given Tamsulosin HCl (Flomax -) 0.4 mg PO DAILY@0830 [facility] Last Admin: 02/15/17 09:08 Dose: 0.4 mg Constitutional: Yes: Lethargic, poorly repsonsive on 50% VM O2, right lateral gaze Neck: Yes: Supple Cardiovascular: Yes: Regular Rate and Rhythm Respiratory: Yes: Bilateral course rhonchi, 50% VM O2 Gastrointestinal: Yes: Soft, (+) Bowel Sounds Edema: No Labs: Laboratory Results - last 24 hr 02/14/17 02/14/17 02/15/17 12:00 16:00 05:10 WBC 14.7 H RBC 3.11 L D Hgb 8.4 L D Hct 26.2 L D MCV 84.4 MCH 27.0 MCHC 32.0 RDW 17.0 H Plt Count 116 L D MPV 8.8 PTT (Actin FS) Sodium Potassium Chloride Carbon Dioxide Anion Gap BUN Creatinine POC Glucometer [phone] Random Glucose Lactic Acid 0.5 Calcium 02/15/17 02/15/17 02/15/17 05:10 05:10 07:24 WBC RBC Hgb Hct MCV MCH MCHC RDW Plt Count MPV PTT (Actin FS) 35.4 H Sodium 145 Potassium 3.1 L Chloride 113 H Carbon Dioxide 23 Anion Gap 9 BUN 41 H Creatinine 1.4 H POC Glucometer [phone] Random Glucose 225 H D Lactic Acid Calcium 7.2 L Problem List - Problems (1) Acute respiratory failure Code(s): J96.00 - ACUTE RESPIRATORY FAILURE, UNSP W HYPOXIA OR HYPERCAPNIA (2) Ascending aortic aneurysm Code(s): I71.2 - THORACIC AORTIC ANEURYSM, WITHOUT RUPTURE (3) CKD (chronic kidney disease) Code(s): N18.9 - CHRONIC KIDNEY DISEASE, UNSPECIFIED Qualifiers: Chronic kidney disease stage: stage 2 (mild) Qualified Code(s): N18.2 - Chronic kidney disease, stage 2 (mild) (4) CLL (chronic lymphocytic leukemia) Code(s): C91.10 - CHRONIC LYMPHOCYTIC LEUK OF B-CELL TYPE NOT ACHIEVE REMIS (5) Hx of CABG Code(s): Z95.1 - PRESENCE OF AORTOCORONARY BYPASS GRAFT (6) Pneumonia, community acquired Code(s): J18.9 - PNEUMONIA, UNSPECIFIED ORGANISM (7) CAD (coronary artery disease) Code(s): I25.10 - ATHSCL HEART DISEASE OF [place] CORONARY ARTERY W/O ANG PCTRS Qualifiers: Coronary Disease-Associated Artery/Lesion type: [place] artery [place] vs. transplanted heart: [place] heart Associated angina: without angina Qualified Code(s): I25.10 - Atherosclerotic heart disease of [place] coronary artery without angina pectoris (8) HLD (hyperlipidemia) Code(s): E78.5 - HYPERLIPIDEMIA, UNSPECIFIED Qualifiers: Hyperlipidemia type: pure hypercholesterolemia Qualified Code(s): E78.00 - Pure hypercholesterolemia, unspecified; E78.0 - Pure hypercholesterolemia (9) HTN (hypertension) Code(s): I10 - ESSENTIAL (PRIMARY) HYPERTENSION Qualifiers: Hypertension type: essential hypertension Qualified Code(s): I10 - Essential (primary) hypertension (10) Hypokalemia Code(s): E87.6 - HYPOKALEMIA (11) 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 heart failure Code(s): I51.9 - HEART DISEASE, UNSPECIFIED (12) CVA (cerebral vascular accident) Code(s): I63.9 - CEREBRAL INFARCTION, UNSPECIFIED Qualifiers: CVA mechanism: embolism Precerebral and cerebral artery: anterior cerebral artery Laterality of affected vessel: left Qualified Code(s) : I63.422 - Cerebral infarction due to embolism of left anterior cerebral artery (13) At risk for aspiration Code(s): Z91.89 - OTH PERSONAL RISK FACTORS, NOT ELSEWHERE CLASSIFIED (14) Paroxysmal atrial fibrillation with rapid ventricular response Code(s): I48.0 - PAROXYSMAL ATRIAL FIBRILLATION Assessment/Plan 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 AFib -> now NSR Aphasia/dysphagia Community Acquired PNA Coronary artery disease /CABG Angina pectoris Hypertension Hypercholesterolemia Ascending aortic aneurysm CLL Anemia CKD Aspiration Pneumonitis ABX per ID Eliquis as ordered Decrease Accupril due to marginal BP Metoprolol for rate control -> If needed can use Amiodarone Atorvastatin Hold NGT feeds Monitor off steroids I previously mentioned advanced directives with his daughter. For now, the family wants all possible efforts to be made. Unfortunately, due to progressive clinical/neurologic deterioration with no indication of improvement , I would suggest more conservative measures of care but for now will comply with the family's wishes. Dr Martinez Critical Care Total Critical Care Time (in minutes): 35 Critical Care Statement: The care of this patient involved high complexity decision making to prevent further life threatening deterioration of the patient 's condition and/or to evalute & treat vital organ system(s) failure or risk of failure.
[2017-02-15] MEDS ORDERED: POTASSIUM CHLORIDE ORAL LIQUID 20 MEQ/15 ML PO ONE (09:33)
[2017-02-15] MEDS ORDERED: POTASSIUM CHLORIDE 20 MEQ PREMIX IVPB 100 ML IVPB ONE (09:33)
[2017-02-15] MEDS ORDERED: QUINAPRIL HCL 5 MG TABLET (FP) PO SCH (10:00)
--- NOTE | 2017-02-15 10:28 | PN ---
Progress Note, Physician Chief Complaint: Unable to obtain, patient not arousable - Current Medication List Current Medications: Active Medications Acetaminophen (Tylenol -) 650 mg PO Q6H PRN PRN Reason: FEVER OR PAIN Last Admin: 02/14/17 02:34 Dose: 650 mg Albuterol Sulfate (Ventolin 0.083% Nebulizer Soln -) 1 amp NEB Q4H PRN PRN Reason: SHORT OF BREATH/WHEEZING Apixaban (Eliquis -) 5 mg PO BID FREDY Last Admin: 02/14/17 23:48 Dose: 5 mg Atorvastatin Calcium (Lipitor -) 40 mg PO HS FREDY Last Admin: 02/14/17 23:48 Dose: 40 mg Diltiazem HCl (Cardizem Injection -) 10 mg IVPUSH Q4H PRN PRN Reason: Tachycardia >100 Last Admin: 02/13/17 16:37 Dose: 10 mg Heparin Sodium (Porcine) (Heparin -) 1,000 unit IVPUSH PRN PRN PRN Reason: Heparin Meropenem 500 mg/ Dextrose 100 mls @ 100 mls/hr IVPB Q8H-IV FREDY Last Admin: 02/15/17 09:09 Dose: 100 mls/hr Diltiazem HCl 125 mg/ Dextrose 125 mls @ 7.5 mls/hr IVPB TITR FREDY; 7.5 MG/HR PRN Reason: Protocol Last Admin: 02/14/17 17:19 Dose: Not Given Pantoprazole Sodium (Protonix 40mg Ivpb (Pre-Docked)) 100 mls @ 200 mls/hr IVPB DAILY FREDY Last Admin: 02/15/17 09:11 Dose: 200 mls/hr Potassium Chloride/Sodium Chloride (Ns+20 Meq Kcl -) 1,000 mls @ 100 mls/hr IV ASDIR [facility] Last Admin: 02/14/17 17:30 Dose: 100 mls/hr Insulin Aspart (Novolog Vial Sliding Scale -) 1 vial SQ BIDAC FREDY PRN Reason: Protocol Last Admin: 02/15/17 07:27 Dose: 4 units Magnesium Oxide (Mag-Ox -) 400 mg PO BID FREDY Last Admin: 02/15/17 09:08 Dose: 400 mg Metoprolol Tartrate (Lopressor -) 25 mg NGT BID FREDY Last Admin: 02/15/17 09:08 Dose: 25 mg Nystatin (Mycostatin Cream -) 1 applic TP BID [facility] Last Admin: 02/15/17 09:11 Dose: 1 applic Ondansetron HCl (Zofran Injection) 4 mg IVPB Q6H PRN PRN Reason: NAUSEA Last Admin: 02/11/17 14:36 Dose: 4 mg Quinapril HCl (Accupril -) 5 mg PO DAILY [facility] Tamsulosin HCl (Flomax -) 0.4 mg PO DAILY@0830 [facility] Last Admin: 02/15/17 09:08 Dose: 0.4 mg - Objective Vital Signs: Vital Signs Temperature 99.5 F 02/15/17 06:00 Pulse Rate 88 02/15/17 06:00 Respiratory Rate 22 02/15/17 06:00 Blood Pressure 109/57 02/15/17 06:00 O2 Sat by Pulse Oximetry (%) 99 02/14/17 21:00 Constitutional: Yes: No Distress, Calm Cardiovascular: Yes: Pulse Irregular. No: Tachycardia, Gallop, Murmur, Rub Respiratory: Yes: Regular, On Venti-Mask, Rhonchi, Wheezes. No: Rales Gastrointestinal: Yes: Normal Bowel Sounds, Soft. No: Distention, Tenderness Extremities: Yes: WNL Edema: No Labs: CBC, BMP 02/15/17 05:10 02/15/17 05:10 Problem List - Problems (1) Paroxysmal atrial fibrillation with rapid ventricular response Code(s): I48.0 - PAROXYSMAL ATRIAL FIBRILLATION (2) CVA (cerebral vascular accident) Code(s): I63.9 - CEREBRAL INFARCTION, UNSPECIFIED Qualifiers: CVA mechanism: embolism Precerebral and cerebral artery: anterior cerebral artery Laterality of affected vessel: left Qualified Code(s) : I63.422 - Cerebral infarction due to embolism of left anterior cerebral artery (3) Acute respiratory failure Code(s): J96.00 - ACUTE RESPIRATORY FAILURE, UNSP W HYPOXIA OR HYPERCAPNIA (4) Pneumonia, community acquired Code(s): J18.9 - PNEUMONIA, UNSPECIFIED ORGANISM (5) CKD (chronic kidney disease) Code(s): N18.9 - CHRONIC KIDNEY DISEASE, UNSPECIFIED Qualifiers: Chronic kidney disease stage: stage 2 (mild) Qualified Code(s): N18.2 - Chronic kidney disease, stage 2 (mild) (6) CLL (chronic lymphocytic leukemia) Code(s): C91.10 - CHRONIC LYMPHOCYTIC LEUK OF B-CELL TYPE NOT ACHIEVE REMIS (7) CAD (coronary artery disease) Code(s): I25.10 - ATHSCL HEART DISEASE OF [place] CORONARY ARTERY W/O ANG PCTRS Qualifiers: Coronary Disease-Associated Artery/Lesion type: [place] artery [place] vs. transplanted heart: [place] heart Associated angina: without angina Qualified Code(s): I25.10 - Atherosclerotic heart disease of [place] coronary artery without angina pectoris (8) HLD (hyperlipidemia) Code(s): E78.5 - HYPERLIPIDEMIA, UNSPECIFIED Qualifiers: Hyperlipidemia type: pure hypercholesterolemia Qualified Code(s): E78.00 - Pure hypercholesterolemia, unspecified; E78.0 - Pure hypercholesterolemia (9) HTN (hypertension) Code(s): I10 - ESSENTIAL (PRIMARY) HYPERTENSION Qualifiers: Hypertension type: essential hypertension Qualified Code(s): I10 - Essential (primary) hypertension (10) Hypercalcemia Code(s): E83.52 - HYPERCALCEMIA (11) Hypophosphatemia Code(s): E83.39 - OTHER DISORDERS OF PHOSPHORUS METABOLISM Assessment/Plan (1) Acute respiratory failure -case d/w pulmonary -worsening -suspect will need intubation in the future (2) Pneumonia, community acquired Assessment/Plan: -continue merrem per ID -vancomycin discontinued Code(s): J18.9 - PNEUMONIA, UNSPECIFIED ORGANISM (3) CKD (chronic kidney disease) Assessment/Plan: -at baseline -monitor Code(s): N18.9 - CHRONIC KIDNEY DISEASE, UNSPECIFIED Qualifiers: Chronic kidney disease stage: stage 2 (mild) Qualified Code(s): N18.2 - Chronic kidney disease, stage 2 (mild) (4) CLL (chronic lymphocytic leukemia) Assessment/Plan: -ibrutinib held -oncology following Code(s): C91.10 - CHRONIC LYMPHOCYTIC LEUK OF B-CELL TYPE NOT ACHIEVE REMIS (5) CAD (coronary artery disease) Assessment/Plan: -quiescent, no chest pain -continue home regimen Code(s): I25.10 - ATHSCL HEART DISEASE OF [place] CORONARY ARTERY W/O ANG PCTRS (6) HLD (hyperlipidemia) Assessment/Plan: -lipitor per feeding tube Code(s): E78.5 - HYPERLIPIDEMIA, UNSPECIFIED (7) HTN (hypertension) Assessment/Plan: -controlled -continue diltiazem and metoprolol Code(s): I10 - ESSENTIAL (PRIMARY) HYPERTENSION (8) Hypercalcemia -stable (9) Acute CVA with obtundation -CT scan repeated -showing vasogenic edema without hemorrhagic conversion -continue decadron (10) Paroxysmal atrial fibrillation -continue metoprolol and diltiazem -on eliquis 32 minutes in critical care time spent with this patient
[2017-02-15] MEDS ORDERED: POTASSIUM CHLORIDE ORAL LIQUID 20 MEQ/15 ML ONE ×2 (12:13→12:30)
[2017-02-15] MEDS: APIXABAN 5 MG TABLET PO SCH ×2 (12:48→22:42)
[2017-02-15] MEDS: DILTIAZEM INJECTION 125 MG in DEXTROSE 5%-WATER - 100 ML IVPB SCH (17:33)
[2017-02-15] MEDS: SODIUM CHLORIDE 0.9%/KCL 1,000 ML IV SCH (17:34)
[2017-02-15 18:45] LABS: ARTERIAL BLD GAS O2 SATURATION 96.3 % (90-98.9); ARTERIAL BLOOD GAS BASE EXCESS -1.7 meq/l (-2-2); ARTERIAL BLOOD GAS PO2 85.6 mmHg (70-100); ARTERIAL BLOOD GAS pH 7.42 (7.35-7.45)
[2017-02-15 18:46] LABS: ALLENS TEST POSITIVE; ART PUNCT SITE LEFT RADIAL; LPM/O2% 50%; PT. ON O2? YES; TYPE OF O2 VENTI MASK
[2017-02-15 18:49] LABS: ARTERIAL BLOOD GAS HCO3 21.4 meq/L (22-26)
[2017-02-15] MEDS ORDERED: RAPID SEQUENCE INTUBATION KIT NR ONE (18:58)
[2017-02-15] MEDS ORDERED: BENZOIN/ALOE VERA/STORAX/TOLU 58 ML BOTTLE ONE (19:32)
[2017-02-15] MEDS: FENTANYL INJECTION 500 MCG in DEXTROSE 5%-WATER - 90 ML IJ SCH (19:45)
--- NOTE | 2017-02-15 20:00 | PROC ---
Intubation - Intubation Reason for Intubation: Airway Protection, Other (Altered mental status) Time of Intubation: 19:30 Intubation Method: orotracheal Blade used: Mac (3) Tube Size (cm): 7.5 Tube position @ lip (cm): 22 Tube position confirmed by: Direct visualization, CO2 detector, Chest x-ray ( pending), Breath sounds Breath Sounds after Intubation: equal Post Intubation Xray: Yes Remarks: Called by ICU nurse to evaluate patient for intubation. Patient with multiple strokes and a basia coma scale of 3 with aspiration earlier in the week. After discussion with Dr. Martinez and extensive discussion with patient's daughter regarding reasons for need of intubation due to his mental status and airway protection. After consideration, daughter agrees that we proceed. Patient breathing spontaneously, all equipment available. NGT sucitoned. Fentanyl 100 mcg, Etomidate 6 mg and Propofol 100 mg (in 20-30 mg aliquots) IV administered. 90 mm oral airway inserted and patient easily bag-mask ventilated. Rocuronium 70 mg IV administered. Direct laryngoscopy performed, oropharynx suctioned and CL grade 1 view obtained. 7.5 endotracheal tube passed easily through vocal cords under direct visualization, cuff inflated to minimally occlusive pressure with 9 ml of air with tube 22 cm at lip. Bilateral chest rise noted, CO2 detector color change to yellow and breath sounds equal bilaterally. ETT secured by respiratory therapist. All vital signs stable throughout. Chest x-ray pending.
[2017-02-15 21:17] LABS: ARTERIAL BLD GAS O2 SATURATION 99.2 % (90-98.9); ARTERIAL BLOOD GAS BASE EXCESS -3.2 meq/l (-2-2); ARTERIAL BLOOD GAS HCO3 22.7 meq/L (22-26)
[2017-02-15 21:18] LABS: ALLENS TEST POSITIVE; ART PUNCT SITE RIGHT RADIAL; LPM/O2% 80%; MECH. VENT. YES; PT. ON O2? YES; TYPE OF O2 MECH VENT; VENT RATE 12; VT/PRESS 500
[2017-02-15] MEDS: ATORVASTATIN CA 40 MG TABLET (FP) PO SCH (22:41)
[2017-02-15] MEDS ORDERED: ACETAMINOPHEN 1000 MG/100 ML VIAL (NON FORMULARY) IVPB ONE (23:06)
[2017-02-16] MEDS: METOPROLOL TARTRATE 25 MG TABLET (FP) NGT SCH ×3 (00:18→22:00)
[2017-02-16] MEDS ORDERED: BENZOIN/ALOE VERA/STORAX/TOLU 58 ML BOTTLE ONE (00:56)
[2017-02-16] MEDS: MEROPENEM 500 MG in DEXTROSE 5%-WATER - 100 ML IVPB SCH ×3 (01:43→17:48)
[2017-02-16 06:02] LABS: MCH 26.8 pg (25.7-33.7); MCHC 31.7 g/dl (32.0-35.9); MEAN CELL VOLUME 84.4 fl (80-96); MEAN PLT VOLUME 9.3 fl (7.5-11.1); PLATELET COUNT 129 K/MM3 (134-434); RDW 17.3 % (11.9-15.9); WHITE BLOOD COUNT 17.1 K/mm3 (4.0-10.0)
[2017-02-16] MEDS: INSULIN SLIDING SCALE (NOVOLOG) 1 VIAL SQ SCH ×2 (07:12→17:39)
[2017-02-16 07:35] LABS: ARTERIAL BLOOD GAS BASE EXCESS -2.5 meq/l (-2-2); ARTERIAL BLOOD GAS HCO3 20.9 meq/L (22-26); ARTERIAL BLOOD GAS pH 7.41 (7.35-7.45)
[2017-02-16 07:38] LABS: ALLENS TEST POSITIVE; ART PUNCT SITE RIGHT RADIAL; LPM/O2% 70%; PT. ON O2? YES; TYPE OF O2 MECH VENT
[2017-02-16 07:39] LABS: MECH. VENT. YES; VENT RATE 14; VT/PRESS 400
[2017-02-16 07:41] LABS: ARTERIAL BLD GAS O2 SATURATION 99.7 % (90-98.9)
--- NOTE | 2017-02-16 08:57 | PN ---
Progress Note, Physician History of Present Illness: Intubated Sedated on ventilator Remains febrile - Current Medication List Current Medications: Active Medications Acetaminophen (Tylenol -) 650 mg PO Q6H PRN PRN Reason: FEVER OR PAIN Last Admin: 02/14/17 02:34 Dose: 650 mg Apixaban (Eliquis -) 5 mg PO BID [facility] Last Admin: 02/15/17 22:42 Dose: 5 mg Atorvastatin Calcium (Lipitor -) 40 mg PO HS [facility] Last Admin: 02/15/17 22:41 Dose: 40 mg Diltiazem HCl (Cardizem Injection -) 10 mg IVPUSH Q4H PRN PRN Reason: Tachycardia >100 Last Admin: 02/13/17 16:37 Dose: 10 mg Heparin Sodium (Porcine) (Heparin -) 1,000 unit IVPUSH PRN PRN PRN Reason: Heparin Meropenem 500 mg/ Dextrose 100 mls @ 100 mls/hr IVPB Q8H-IV [facility]EDY Last Admin: 02/16/17 01:43 Dose: 100 mls/hr Diltiazem HCl 125 mg/ Dextrose 125 mls @ 7.5 mls/hr IVPB TITR FREDY; 7.5 MG/HR PRN Reason: Protocol Last Admin: 02/15/17 17:33 Dose: Not Given Pantoprazole Sodium (Protonix 40mg Ivpb (Pre-Docked)) 100 mls @ 200 mls/hr IVPB DAILY [facility] Last Admin: 02/15/17 09:11 Dose: 200 mls/hr Potassium Chloride/Sodium Chloride (Ns+20 Meq Kcl -) 1,000 mls @ 100 mls/hr IV ASDIR [facility] Last Admin: 02/15/17 17:34 Dose: 100 mls/hr Fentanyl 500 mcg/ Dextrose 100 mls @ 5 mls/hr IJ TITR FREDY PRN Reason: 25 MCG/HR Last Admin: 02/15/17 19:45 Dose: 5 mls/hr Insulin Aspart (Novolog Vial Sliding Scale -) 1 vial SQ BIDAC FREDY PRN Reason: Protocol Last Admin: 02/16/17 07:12 Dose: 4 units Magnesium Oxide (Mag-Ox -) 400 mg PO BID [facility] Last Admin: 02/15/17 22:41 Dose: 400 mg Metoprolol Tartrate (Lopressor -) 25 mg NGT BID [facility] Last Admin: 02/16/17 00:18 Dose: Not Given Nystatin (Mycostatin Cream -) 1 applic TP BID [facility] Last Admin: 02/15/17 22:42 Dose: 1 applic Ondansetron HCl (Zofran Injection) 4 mg IVPB Q6H PRN PRN Reason: NAUSEA Last Admin: 02/11/17 14:36 Dose: 4 mg Tamsulosin HCl (Flomax -) 0.4 mg PO DAILY@0830 [facility] Last Admin: 02/15/17 09:08 Dose: 0.4 mg - Objective Vital Signs: Vital Signs Temperature 100.6 F H 02/16/17 06:44 Pulse Rate 83 02/16/17 06:44 Respiratory Rate 24 02/16/17 07:25 Blood Pressure 109/63 02/16/17 06:44 O2 Sat by Pulse Oximetry (%) 100 02/16/17 06:00 Constitutional: Yes: No Distress Eyes: Yes: Conjunctiva Clear Cardiovascular: Yes: Regular Rate and Rhythm, S1, S2 Respiratory: Yes: Mechanically Ventilated Gastrointestinal: Yes: Normal Bowel Sounds, Soft. No: Tenderness Labs: CBC, BMP 02/16/17 05:30 Assessment/Plan Acute L CVA Bilateral Pneumonia Respiratory failure Recurrent fever CLL PCN allergy Continue empiric meropenem Ventilatory support
--- NOTE | 2017-02-16 09:32 | PN ---
Progress Note (short form) - Note Progress Note: Patient seen and examined in the ICU. Required endotracheal intubation yesterday (GCS 3, concern for his ability to protect his airway). No other acute events overnight. On very low dose Fentanyl to assist in vent synchrony. No pressors. CVP = 8. CXR : ETT in position / no gross change in bilateral parenchymal process. Intake & Output 02/13/17 02/14/17 02/15/17 02/16/17 23:59 23:59 23:59 23:59 Intake Total 2849 6420 1800 1400 Output Total 1100 3075 900 Balance 2849 8800 -1275 500 Weight 151 lb 154 lb 156 lb 152 lb 1.6 oz Last Vital Signs Temp Pulse Resp BP Pulse Ox 100.6 F H 83 24 109/63 100 02/16/17 06:44 02/16/17 06:44 02/16/17 07:25 02/16/17 06:44 02/16/17 09:00 Active Medications Acetaminophen (Tylenol -) 650 mg PO Q6H PRN PRN Reason: FEVER OR PAIN Last Admin: 02/14/17 02:34 Dose: 650 mg Apixaban (Eliquis -) 5 mg PO BID [facility] Last Admin: 02/15/17 22:42 Dose: 5 mg Atorvastatin Calcium (Lipitor -) 40 mg PO HS [facility] Last Admin: 02/15/17 22:41 Dose: 40 mg Diltiazem HCl (Cardizem Injection -) 10 mg IVPUSH Q4H PRN PRN Reason: Tachycardia >100 Last Admin: 02/13/17 16:37 Dose: 10 mg Heparin Sodium (Porcine) (Heparin -) 1,000 unit IVPUSH PRN PRN PRN Reason: Heparin Meropenem 500 mg/ Dextrose 100 mls @ 100 mls/hr IVPB Q8H-IV [facility] Last Admin: 02/16/17 01:43 Dose: 100 mls/hr Diltiazem HCl 125 mg/ Dextrose 125 mls @ 7.5 mls/hr IVPB TITR [facility]; 7.5 MG/HR PRN Reason: Protocol Last Admin: 02/15/17 17:33 Dose: Not Given Pantoprazole Sodium (Protonix 40mg Ivpb (Pre-Docked)) 100 mls @ 200 mls/hr IVPB DAILY [facility] Last Admin: 02/15/17 09:11 Dose: 200 mls/hr Potassium Chloride/Sodium Chloride (Ns+20 Meq Kcl -) 1,000 mls @ 100 mls/hr IV ASDIR [facility] Last Admin: 02/15/17 17:34 Dose: 100 mls/hr Fentanyl 500 mcg/ Dextrose 100 mls @ 5 mls/hr IJ TITR [facility] PRN Reason: 25 MCG/HR Last Admin: 02/15/17 19:45 Dose: 5 mls/hr Insulin Aspart (Novolog Vial Sliding Scale -) 1 vial SQ BIDAC [facility] PRN Reason: Protocol Last Admin: 02/16/17 07:12 Dose: 4 units Magnesium Oxide (Mag-Ox -) 400 mg PO BID [facility] Last Admin: 02/15/17 22:41 Dose: 400 mg Metoprolol Tartrate (Lopressor -) 25 mg NGT BID [facility] Last Admin: 02/16/17 00:18 Dose: Not Given Nystatin (Mycostatin Cream -) 1 applic TP BID [facility] Last Admin: 02/15/17 22:42 Dose: 1 applic Ondansetron HCl (Zofran Injection) 4 mg IVPB Q6H PRN PRN Reason: NAUSEA Last Admin: 02/11/17 14:36 Dose: 4 mg Tamsulosin HCl (Flomax -) 0.4 mg PO DAILY@0830 [facility] Last Admin: 02/15/17 09:08 Dose: 0.4 mg Constitutional: Yes: Intubated, poorly responsive, right lateral gaze Neck: Yes: Supple Cardiovascular: Yes: Regular Rate and Rhythm Respiratory: Yes: Bilateral course rhonchi, 50% VM O2 Gastrointestinal: Yes: Soft, (+) Bowel Sounds Edema: No Neuro: poorly responsive, right lateral/downward gaze Labs: Laboratory Results - last 24 hr 02/15/17 02/15/17 02/16/17 18:40 21:05 05:30 WBC 17.1 H RBC 3.11 L Hgb 8.3 L Hct 26.2 L MCV 84.4 MCH 26.8 MCHC 31.7 L RDW 17.3 H Plt Count 129 L MPV 9.3 PTT (Actin FS) Puncture Site Left radial Right radial ABG pH 7.42 7.30 L ABG pCO2 at Pt Temp 33.8 L 48.0 H D ABG pO2 at Pt Temp 85.6 D 169.0 H* D ABG HCO3 21.4 L 22.7 ABG O2 Sat (Measured) 96.3 99.2 H ABG O2 Content 11.7 L 12.7 L ABG Base Excess -1.7 -3.2 L Prem Test Positive Positive O2 Delivery Device Venti mask Mech vent Oxygen Flow Rate 50% 80% Vent Mode A/c Vent Rate 12 Mechanical Rate Yes PEEP 0.0 5.0 Pressure Support Vent 500 02/16/17 02/16/17 05:30 07:15 WBC RBC Hgb Hct MCV MCH MCHC RDW Plt Count MPV PTT (Actin FS) 35.8 H Puncture Site Right radial ABG pH 7.41 ABG pCO2 at Pt Temp 34.1 L D ABG pO2 at Pt Temp 187.0 H* ABG HCO3 20.9 L ABG O2 Sat (Measured) 99.7 H* ABG O2 Content 11.9 L ABG Base Excess -2.5 L Prem Test Positive O2 Delivery Device Mech vent Oxygen Flow Rate 70% Vent Mode Ac Vent Rate 14 Mechanical Rate Yes PEEP 5.0 Pressure Support Vent 400 Problem List - Problems (1) Acute respiratory failure Code(s): J96.00 - ACUTE RESPIRATORY FAILURE, UNSP W HYPOXIA OR HYPERCAPNIA (2) Ascending aortic aneurysm Code(s): I71.2 - THORACIC AORTIC ANEURYSM, WITHOUT RUPTURE (3) CKD (chronic kidney disease) Code(s): N18.9 - CHRONIC KIDNEY DISEASE, UNSPECIFIED Qualifiers: Chronic kidney disease stage: stage 2 (mild) Qualified Code(s): N18.2 - Chronic kidney disease, stage 2 (mild) (4) CLL (chronic lymphocytic leukemia) Code(s): C91.10 - CHRONIC LYMPHOCYTIC LEUK OF B-CELL TYPE NOT ACHIEVE REMIS (5) Hx of CABG Code(s): Z95.1 - PRESENCE OF AORTOCORONARY BYPASS GRAFT (6) Pneumonia, community acquired Code(s): J18.9 - PNEUMONIA, UNSPECIFIED ORGANISM (7) CAD (coronary artery disease) Code(s): I25.10 - ATHSCL HEART DISEASE OF [place] CORONARY ARTERY W/O ANG PCTRS Qualifiers: Coronary Disease-Associated Artery/Lesion type: [place] artery [place] vs. transplanted heart: [place] heart Associated angina: without angina Qualified Code(s): I25.10 - Atherosclerotic heart disease of [place] coronary artery without angina pectoris (8) HLD (hyperlipidemia) Code(s): E78.5 - HYPERLIPIDEMIA, UNSPECIFIED Qualifiers: Hyperlipidemia type: pure hypercholesterolemia Qualified Code(s): E78.00 - Pure hypercholesterolemia, unspecified; E78.0 - Pure hypercholesterolemia (9) HTN (hypertension) Code(s): I10 - ESSENTIAL (PRIMARY) HYPERTENSION Qualifiers: Hypertension type: essential hypertension Qualified Code(s): I10 - Essential (primary) hypertension (10) Hypokalemia Code(s): E87.6 - HYPOKALEMIA (11) 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 heart failure Code(s): I51.9 - HEART DISEASE, UNSPECIFIED (12) CVA (cerebral vascular accident) Code(s): I63.9 - CEREBRAL INFARCTION, UNSPECIFIED Qualifiers: CVA mechanism: embolism Precerebral and cerebral artery: anterior cerebral artery Laterality of affected vessel: left Qualified Code(s) : I63.422 - Cerebral infarction due to embolism of left anterior cerebral artery (13) At risk for aspiration Code(s): Z91.89 - OTH PERSONAL RISK FACTORS, NOT ELSEWHERE CLASSIFIED (14) Paroxysmal atrial fibrillation with rapid ventricular response Code(s): I48.0 - PAROXYSMAL ATRIAL FIBRILLATION Assessment/Plan 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 AFib -> now NSR Aphasia/dysphagia Community Acquired PNA Coronary artery disease /CABG Angina pectoris Hypertension Hypercholesterolemia Ascending aortic aneurysm CLL Anemia CKD Aspiration Pneumonitis (?) Lung masses versus consolidated PNA -> Given his overall clinical condition -> Workup not appropriate/beneficial at this point ABX per ID Eliquis as ordered Low dose Accupril as BP tolerates Metoprolol for rate control -> If needed can use Amiodarone Atorvastatin Can restart NGT feeds Monitor off steroids Decrease FiO2 I previously discussed advanced directives with his daughter. I also discussed advanced directives with the daughter on the phone last night prior to his intubation. I explained in detail that his neurologic condition has not demonstrated any indication of recovery. For now, the family wants all possible efforts to be made. Unfortunately, due to progressive clinical/neurologic deterioration with no indication of improvement, a more conservative approach to his care would be more appropriate given his overall poor prognosis. Dr Martinez Critical Care Total Critical Care Time (in minutes): 35 Critical Care Statement: The care of this patient involved high complexity decision making to prevent further life threatening deterioration of the patient 's condition and/or to evalute & treat vital organ system(s) failure or risk of failure.
[2017-02-16] MEDS ORDERED: PT OWN MED DRAWER 7, Y5N ONE ×3 (09:55→22:09)
[2017-02-16] MEDS: APIXABAN 5 MG TABLET PO SCH ×2 (10:06→22:11)
[2017-02-16] MEDS: TAMSULOSIN HCL 0.4 MG CAP.ER.24H (FP) PO SCH (10:08)
[2017-02-16] MEDS: PANTOPRAZOLE SODIUM 100 ML IVPB SCH (10:14)
[2017-02-16] MEDS: MAGNESIUM OXIDE 400 MG TABLET (FP) PO SCH ×2 (10:18→22:13)
--- NOTE | 2017-02-16 10:21 | PN ---
Progress Note, Physician Chief Complaint: Unable to obtain, patient intubated yesterday secondary to inability to protect airway - Current Medication List Current Medications: Active Medications Acetaminophen (Tylenol -) 650 mg PO Q6H PRN PRN Reason: FEVER OR PAIN Last Admin: 02/14/17 02:34 Dose: 650 mg Apixaban (Eliquis -) 5 mg PO BID [facility] Last Admin: 02/15/17 22:42 Dose: 5 mg Atorvastatin Calcium (Lipitor -) 40 mg PO HS [facility] Last Admin: 02/15/17 22:41 Dose: 40 mg Diltiazem HCl (Cardizem Injection -) 10 mg IVPUSH Q4H PRN PRN Reason: Tachycardia >100 Last Admin: 02/13/17 16:37 Dose: 10 mg Heparin Sodium (Porcine) (Heparin -) 1,000 unit IVPUSH PRN PRN PRN Reason: Heparin Meropenem 500 mg/ Dextrose 100 mls @ 100 mls/hr IVPB Q8H-IV [facility] Last Admin: 02/16/17 01:43 Dose: 100 mls/hr Diltiazem HCl 125 mg/ Dextrose 125 mls @ 7.5 mls/hr IVPB TITR [facility]; 7.5 MG/HR PRN Reason: Protocol Last Admin: 02/15/17 17:33 Dose: Not Given Pantoprazole Sodium (Protonix 40mg Ivpb (Pre-Docked)) 100 mls @ 200 mls/hr IVPB DAILY [facility] Last Admin: 02/15/17 09:11 Dose: 200 mls/hr Fentanyl 500 mcg/ Dextrose 100 mls @ 5 mls/hr IJ TITR [facility] PRN Reason: 25 MCG/HR Last Admin: 02/15/17 19:45 Dose: 5 mls/hr Potassium Chloride/Sodium Chloride (Ns+20 Meq Kcl -) 1,000 mls @ 75 mls/hr IV ASDIR [facility] Insulin Aspart (Novolog Vial Sliding Scale -) 1 vial SQ BIDAC [facility] PRN Reason: Protocol Last Admin: 02/16/17 07:12 Dose: 4 units Magnesium Oxide (Mag-Ox -) 400 mg PO BID [facility] Last Admin: 02/15/17 22:41 Dose: 400 mg Metoprolol Tartrate (Lopressor -) 25 mg NGT BID [facility] Last Admin: 02/16/17 00:18 Dose: Not Given Nystatin (Mycostatin Cream -) 1 applic TP BID [facility] Last Admin: 02/15/17 22:42 Dose: 1 applic Ondansetron HCl (Zofran Injection) 4 mg IVPB Q6H PRN PRN Reason: NAUSEA Last Admin: 02/11/17 14:36 Dose: 4 mg Tamsulosin HCl (Flomax -) 0.4 mg PO DAILY@0830 [facility] Last Admin: 02/15/17 09:08 Dose: 0.4 mg - Objective Vital Signs: Vital Signs Temperature 100.6 F H 02/16/17 06:44 Pulse Rate 83 02/16/17 06:44 Respiratory Rate 25 H 02/16/17 09:40 Blood Pressure 109/63 02/16/17 06:44 O2 Sat by Pulse Oximetry (%) 100 02/16/17 09:29 Constitutional: Yes: No Distress, Calm Cardiovascular: Yes: Regular Rate and Rhythm. No: Gallop, Murmur, Rub Respiratory: Yes: Regular, Intubated, Mechanically Ventilated. No: Rales, Rhonchi, Wheezes Gastrointestinal: Yes: Normal Bowel Sounds, Soft. No: Distention, Tenderness Extremities: Yes: WNL Edema: No Labs: CBC, BMP 02/16/17 05:30 Problem List - Problems (1) Paroxysmal atrial fibrillation with rapid ventricular response Code(s): I48.0 - PAROXYSMAL ATRIAL FIBRILLATION (2) CVA (cerebral vascular accident) Code(s): I63.9 - CEREBRAL INFARCTION, UNSPECIFIED Qualifiers: CVA mechanism: embolism Precerebral and cerebral artery: anterior cerebral artery Laterality of affected vessel: left Qualified Code(s) : I63.422 - Cerebral infarction due to embolism of left anterior cerebral artery (3) Acute respiratory failure Code(s): J96.00 - ACUTE RESPIRATORY FAILURE, UNSP W HYPOXIA OR HYPERCAPNIA (4) Pneumonia, community acquired Code(s): J18.9 - PNEUMONIA, UNSPECIFIED ORGANISM (5) CKD (chronic kidney disease) Code(s): N18.9 - CHRONIC KIDNEY DISEASE, UNSPECIFIED Qualifiers: Chronic kidney disease stage: stage 2 (mild) Qualified Code(s): N18.2 - Chronic kidney disease, stage 2 (mild) (6) CLL (chronic lymphocytic leukemia) Code(s): C91.10 - CHRONIC LYMPHOCYTIC LEUK OF B-CELL TYPE NOT ACHIEVE REMIS (7) CAD (coronary artery disease) Code(s): I25.10 - ATHSCL HEART DISEASE OF [place] CORONARY ARTERY W/O ANG PCTRS Qualifiers: Coronary Disease-Associated Artery/Lesion type: [place] artery [place] vs. transplanted heart: [place] heart Associated angina: without angina Qualified Code(s): I25.10 - Atherosclerotic heart disease of [place] coronary artery without angina pectoris (8) HLD (hyperlipidemia) Code(s): E78.5 - HYPERLIPIDEMIA, UNSPECIFIED Qualifiers: Hyperlipidemia type: pure hypercholesterolemia Qualified Code(s): E78.00 - Pure hypercholesterolemia, unspecified; E78.0 - Pure hypercholesterolemia (9) HTN (hypertension) Code(s): I10 - ESSENTIAL (PRIMARY) HYPERTENSION Qualifiers: Hypertension type: essential hypertension Qualified Code(s): I10 - Essential (primary) hypertension (10) Hypercalcemia Code(s): E83.52 - HYPERCALCEMIA (11) Hypophosphatemia Code(s): E83.39 - OTHER DISORDERS OF PHOSPHORUS METABOLISM Assessment/Plan (1) Acute respiratory failure -requiring intubation secondary to inability to protect airway -case d/w pulmonary -continue respiratory support, family discussion (2) Pneumonia, community acquired Assessment/Plan: -continue merrem per ID -vancomycin discontinued -ID note reviewed Code(s): J18.9 - PNEUMONIA, UNSPECIFIED ORGANISM (3) CKD (chronic kidney disease) Assessment/Plan: -at baseline -monitor Code(s): N18.9 - CHRONIC KIDNEY DISEASE, UNSPECIFIED Qualifiers: Chronic kidney disease stage: stage 2 (mild) Qualified Code(s): N18.2 - Chronic kidney disease, stage 2 (mild) (4) CLL (chronic lymphocytic leukemia) Assessment/Plan: -ibrutinib held -oncology following Code(s): C91.10 - CHRONIC LYMPHOCYTIC LEUK OF B-CELL TYPE NOT ACHIEVE REMIS (5) CAD (coronary artery disease) Assessment/Plan: -quiescent, no chest pain -continue home regimen Code(s): I25.10 - ATHSCL HEART DISEASE OF [place] CORONARY ARTERY W/O ANG PCTRS (6) HLD (hyperlipidemia) Assessment/Plan: -lipitor per feeding tube Code(s): E78.5 - HYPERLIPIDEMIA, UNSPECIFIED (7) HTN (hypertension) Assessment/Plan: -controlled -continue diltiazem and metoprolol Code(s): I10 - ESSENTIAL (PRIMARY) HYPERTENSION (8) Hypercalcemia -stable (9) Acute CVA with obtundation -status worsening -neurology following (10) Paroxysmal atrial fibrillation -continue metoprolol and diltiazem -on eliquis 33 minutes in critical care time spent with this patient
[2017-02-16] MEDS: NYSTATIN 100,000 UNIT/GM TOPICAL CREAM 15 GM TUBE TP SCH ×2 (10:26→22:00)
[2017-02-16 11:17] LABS: ALBUMIN 1.4 g/dl (3.4-5.0); ALK PHOS 62 U/L (45-117); ANION GAP 7 (8-16); BILIRUBIN,TOTAL 0.2 mg/dL (0.2-1.0); CO2 23 mmol/L (21-32); CREATININE 1.5 mg/dL (0.7-1.3); GLUCOSE,RANDOM 260 mg/dL (74-106); MAGNESIUM 2.6 mg/dL (1.8-2.4); PHOSPHOROUS 1.5 mg/dL (2.5-4.9); SGOT/AST 28 U/L (15-37); SGPT/ALT 36 U/L (12-78); TOT PROT 3.8 g/dl (6.4-8.2)
--- NOTE | 2017-02-16 12:13 | PN ---
Progress Note, Physician History of Present Illness: Intubated for airway protection given progressive deterioration of mental status. Febrile overnight, remains in NSR. - Current Medication List Current Medications: Active Medications Acetaminophen (Tylenol -) 650 mg PO Q6H PRN PRN Reason: FEVER OR PAIN Last Admin: 02/14/17 02:34 Dose: 650 mg Apixaban (Eliquis -) 5 mg PO BID [facility] Last Admin: 02/16/17 10:06 Dose: 5 mg Atorvastatin Calcium (Lipitor -) 40 mg PO HS [facility] Last Admin: 02/15/17 22:41 Dose: 40 mg Diltiazem HCl (Cardizem Injection -) 10 mg IVPUSH Q4H PRN PRN Reason: Tachycardia >100 Last Admin: 02/13/17 16:37 Dose: 10 mg Heparin Sodium (Porcine) (Heparin -) 1,000 unit IVPUSH PRN PRN PRN Reason: Heparin Meropenem 500 mg/ Dextrose 100 mls @ 100 mls/hr IVPB Q8H-IV [facility] Last Admin: 02/16/17 01:43 Dose: 100 mls/hr Diltiazem HCl 125 mg/ Dextrose 125 mls @ 7.5 mls/hr IVPB TITR [facility]; 7.5 MG/HR PRN Reason: Protocol Last Admin: 02/15/17 17:33 Dose: Not Given Pantoprazole Sodium (Protonix 40mg Ivpb (Pre-Docked)) 100 mls @ 200 mls/hr IVPB DAILY [facility] Last Admin: 02/16/17 10:14 Dose: 200 mls/hr Fentanyl 500 mcg/ Dextrose 100 mls @ 5 mls/hr IJ TITR [facility] PRN Reason: 25 MCG/HR Last Admin: 02/15/17 19:45 Dose: 5 mls/hr Potassium Chloride/Sodium Chloride (Ns+20 Meq Kcl -) 1,000 mls @ 75 mls/hr IV ASDIR [facility] Insulin Aspart (Novolog Vial Sliding Scale -) 1 vial SQ BIDAC [facility] PRN Reason: Protocol Last Admin: 02/16/17 07:12 Dose: 4 units Magnesium Oxide (Mag-Ox -) 400 mg PO BID [facility] Last Admin: 02/16/17 10:18 Dose: 400 mg Metoprolol Tartrate (Lopressor -) 25 mg NGT BID [facility] Last Admin: 02/16/17 10:13 Dose: 25 mg Nystatin (Mycostatin Cream -) 1 applic TP BID [facility] Last Admin: 02/16/17 10:26 Dose: 1 applic Ondansetron HCl (Zofran Injection) 4 mg IVPB Q6H PRN PRN Reason: NAUSEA Last Admin: 02/11/17 14:36 Dose: 4 mg Tamsulosin HCl (Flomax -) 0.4 mg PO DAILY@0830 [facility] Last Admin: 02/16/17 10:08 Dose: 0.4 mg - Objective Vital Signs: Vital Signs Temperature 100.3 F H 02/16/17 10:00 Pulse Rate 79 02/16/17 10:00 Respiratory Rate 22 02/16/17 11:40 Blood Pressure 111/64 02/16/17 10:00 O2 Sat by Pulse Oximetry (%) 100 02/16/17 09:29 Constitutional: Yes: No Distress, Calm Neck: Yes: Supple Cardiovascular: Yes: Regular Rate and Rhythm Respiratory: Yes: Intubated, Mechanically Ventilated, Rhonchi Gastrointestinal: Yes: Normal Bowel Sounds, Soft Edema: No Labs: CBC, BMP 02/16/17 05:30 02/16/17 05:30 - ....Imaging Chest X-ray: Report Reviewed (Bilateral infiltrates) Problem List - Problems (1) Acute respiratory failure Code(s): J96.00 - ACUTE RESPIRATORY FAILURE, UNSP W HYPOXIA OR HYPERCAPNIA (2) Ascending aortic aneurysm Code(s): I71.2 - THORACIC AORTIC ANEURYSM, WITHOUT RUPTURE (3) CKD (chronic kidney disease) Code(s): N18.9 - CHRONIC KIDNEY DISEASE, UNSPECIFIED Qualifiers: Chronic kidney disease stage: stage 2 (mild) Qualified Code(s): N18.2 - Chronic kidney disease, stage 2 (mild) (4) CLL (chronic lymphocytic leukemia) Code(s): C91.10 - CHRONIC LYMPHOCYTIC LEUK OF B-CELL TYPE NOT ACHIEVE REMIS (5) Hx of CABG Code(s): Z95.1 - PRESENCE OF AORTOCORONARY BYPASS GRAFT (6) Pneumonia, community acquired Code(s): J18.9 - PNEUMONIA, UNSPECIFIED ORGANISM (7) CAD (coronary artery disease) Code(s): I25.10 - ATHSCL HEART DISEASE OF [place] CORONARY ARTERY W/O ANG PCTRS Qualifiers: Coronary Disease-Associated Artery/Lesion type: [place] artery [place] vs. transplanted heart: [place] heart Associated angina: without angina Qualified Code(s): I25.10 - Atherosclerotic heart disease of [place] coronary artery without angina pectoris (8) HLD (hyperlipidemia) Code(s): E78.5 - HYPERLIPIDEMIA, UNSPECIFIED Qualifiers: Hyperlipidemia type: pure hypercholesterolemia Qualified Code(s): E78.00 - Pure hypercholesterolemia, unspecified; E78.0 - Pure hypercholesterolemia (9) HTN (hypertension) Code(s): I10 - ESSENTIAL (PRIMARY) HYPERTENSION Qualifiers: Hypertension type: essential hypertension Qualified Code(s): I10 - Essential (primary) hypertension (10) 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 heart failure Code(s): I51.9 - HEART DISEASE, UNSPECIFIED (11) CVA (cerebral vascular accident) Code(s): I63.9 - CEREBRAL INFARCTION, UNSPECIFIED Qualifiers: CVA mechanism: embolism Precerebral and cerebral artery: anterior cerebral artery Laterality of affected vessel: left Qualified Code(s) : I63.422 - Cerebral infarction due to embolism of left anterior cerebral artery (12) At risk for aspiration Code(s): Z91.89 - [facility] PERSONAL RISK FACTORS, NOT ELSEWHERE CLASSIFIED (13) Paroxysmal atrial fibrillation with rapid ventricular response Code(s): I48.0 - PAROXYSMAL ATRIAL FIBRILLATION (14) Anemia Code(s): D64.9 - ANEMIA, UNSPECIFIED Qualifiers: Anemia type: unspecified type Qualified Code(s): D64.9 - Anemia, unspecified Assessment/Plan 02/03/2017 Normal biventricular size and fxn, mild NEHEMIAH, mild LA mri of brain showed multiple area of infarct carotid ultrasound is no stenosis 02/11/2017 Normal biventricular size and fxn, mild-mod MR, abnl LV compliance 1. Acute bihemispheric stroke in context of newly diagnosed paroxysmal atrial fibrillation -> NSR 2. Acute hypoxic respiratory failure referable to CAP and aspiration PNA now on ventilator 3. Coronary artery disease status post CABG, angina pectoris 4. Hypertension 5. Hypercholesterolemia 6. Ascending aortic aneurysm 7. CLL 8. Hypernatremia and hypercalcemia 9. anemia 10. CKD PLAN: 1. Continue Eliquis 5 bid, Lopressor 25 bid, Lipitor 40 qhs and Accupril 10 qd as hemodynamics tolerate. 2. Imbruvica has been d/jose 3. Ascending aortic aneurysm can be followed as outpatient 4. Enteral feeds with free water flushes, wean FIO2 as tolerated 5. GI prophylaxis, BD, complete Meropenem course, plan of care d/w daughter
[2017-02-16] MEDS: SODIUM CHLORIDE 0.9%/KCL 1,000 ML IV SCH ×2 (14:38→14:40)
[2017-02-16] MEDS: FENTANYL INJECTION 500 MCG in DEXTROSE 5%-WATER - 90 ML IJ SCH (14:41)
[2017-02-16] MEDS ORDERED: IBUPROFEN 100 MG/5 ML UNIT DOSE CUPS GT ONE (17:00)
[2017-02-16] MEDS: DILTIAZEM INJECTION 125 MG in DEXTROSE 5%-WATER - 100 ML IVPB SCH (17:38)
[2017-02-16] MEDS ORDERED: SODIUM CHLORIDE 250 ML IV SCH (19:59)
[2017-02-16] MEDS: NOREPINEPHRINE BITARTRATE 8,000 MCG in DEXTROSE 5%-WATER - 492 ML IV SCH (20:00)
[2017-02-16] MEDS ORDERED: NOREPINEPHRINE BITARTRATE 4 MG/4 ML ML IV ONE (20:34)
[2017-02-16] MEDS ORDERED: SODIUM CHLORIDE 250 ML IV STA (20:52)
[2017-02-16] MEDS: ATORVASTATIN CA 40 MG TABLET (FP) PO SCH (22:11)
[2017-02-16] MEDS: ACETAMINOPHEN 325 MG TABLET (FP) PO PRN (22:11)
[2017-02-17] MEDS: FENTANYL INJECTION 500 MCG in DEXTROSE 5%-WATER - 90 ML IJ SCH (02:06)
[2017-02-17] MEDS: MEROPENEM 500 MG in DEXTROSE 5%-WATER - 100 ML IVPB SCH ×3 (02:07→17:10)
[2017-02-17 06:22] LABS: MCH 26.9 pg (25.7-33.7); MCHC 31.9 g/dl (32.0-35.9); MEAN CELL VOLUME 84.3 fl (80-96); MEAN PLT VOLUME 9.1 fl (7.5-11.1); PLATELET COUNT 145 K/MM3 (134-434); RDW 17.4 % (11.9-15.9); WHITE BLOOD COUNT 20.8 K/mm3 (4.0-10.0)
[2017-02-17 06:55] LABS: ALBUMIN 1.3 g/dl (3.4-5.0); ANION GAP 7 (8-16); CO2 23 mmol/L (21-32); GLUCOSE,RANDOM 282 mg/dL (74-106); SGOT/AST 34 U/L (15-37); SGPT/ALT 34 U/L (12-78)
[2017-02-17] MEDS: INSULIN SLIDING SCALE (NOVOLOG) 1 VIAL SQ SCH ×2 (06:55→16:58)
[2017-02-17 06:57] LABS: ALK PHOS 74 U/L (45-117); BILIRUBIN,TOTAL 0.3 mg/dL (0.2-1.0); CREATININE 1.7 mg/dL (0.7-1.3); TOT PROT 3.8 g/dl (6.4-8.2)
[2017-02-17 07:11] LABS: CALCIUM 6.9 mg/dL (8.5-10.1)
[2017-02-17 07:20] LABS: ALLENS TEST POSITIVE; ART PUNCT SITE LEFT RADIAL; ARTERIAL BLD GAS O2 SATURATION 98.8 % (90-98.9); ARTERIAL BLOOD GAS BASE EXCESS -3.4 meq/l (-2-2); ARTERIAL BLOOD GAS HCO3 20.4 meq/L (22-26); ARTERIAL BLOOD GAS pH 7.39 (7.35-7.45); PT. ON O2? YES
[2017-02-17 07:21] LABS: LPM/O2% 70%; MECH. VENT. Y; TYPE OF O2 VENT; VENT RATE 14; VT/PRESS 400
[2017-02-17 08:03] LABS: METAMYELOCYTE 2 % (0-2)
--- NOTE | 2017-02-17 08:20 | PN ---
Progress Note, Physician Chief Complaint: ID Meropenem day 7 Rx Got intubated over the weekend - Current Medication List Current Medications: Active Medications Acetaminophen (Tylenol -) 650 mg PO Q6H PRN PRN Reason: FEVER OR PAIN Last Admin: 02/16/17 22:11 Dose: 650 mg Apixaban (Eliquis -) 5 mg PO BID [facility] Last Admin: 02/16/17 22:11 Dose: 5 mg Atorvastatin Calcium (Lipitor -) 40 mg PO HS [facility] Last Admin: 02/16/17 22:11 Dose: 40 mg Diltiazem HCl (Cardizem Injection -) 10 mg IVPUSH Q4H PRN PRN Reason: Tachycardia >100 Last Admin: 02/13/17 16:37 Dose: 10 mg Heparin Sodium (Porcine) (Heparin -) 1,000 unit IVPUSH PRN PRN PRN Reason: Heparin Meropenem 500 mg/ Dextrose 100 mls @ 100 mls/hr IVPB Q8H-IV [facility] Last Admin: 02/17/17 02:07 Dose: 100 mls/hr Diltiazem HCl 125 mg/ Dextrose 125 mls @ 7.5 mls/hr IVPB TITR [facility]; 7.5 MG/HR PRN Reason: Protocol Last Admin: 02/16/17 17:38 Dose: Not Given Pantoprazole Sodium (Protonix 40mg Ivpb (Pre-Docked)) 100 mls @ 200 mls/hr IVPB DAILY [facility] Last Admin: 02/16/17 10:14 Dose: 200 mls/hr Norepinephrine Bitartrate 8, (000 mcg/ Dextrose) 500 mls @ 7.76 mls/hr IV ASDIR [facility]; 0.03 MCG/KG/MIN PRN Reason: Protocol Last Titration: 02/17/17 05:00 Dose: 0.02 mcg/kg/min Insulin Aspart (Novolog Vial Sliding Scale -) 1 vial SQ BIDAC [facility] PRN Reason: Protocol Last Admin: 02/17/17 06:55 Dose: 6 units Magnesium Oxide (Mag-Ox -) 400 mg PO BID [facility] Last Admin: 02/16/17 22:13 Dose: 400 mg Metoprolol Tartrate (Lopressor -) 25 mg NGT BID [facility] Last Admin: 02/16/17 22:00 Dose: Not Given Nystatin (Mycostatin Cream -) 1 applic TP BID [facility] Last Admin: 02/16/17 22:00 Dose: 1 applic Ondansetron HCl (Zofran Injection) 4 mg IVPB Q6H PRN PRN Reason: NAUSEA Last Admin: 02/11/17 14:36 Dose: 4 mg Tamsulosin HCl (Flomax -) 0.4 mg PO DAILY@0830 [facility] Last Admin: 02/16/17 10:08 Dose: 0.4 mg - Objective Vital Signs: Vital Signs Temperature 98.3 F 02/17/17 06:00 Pulse Rate 98 H 02/17/17 06:00 Respiratory Rate 22 02/17/17 06:28 Blood Pressure 129/80 02/17/17 06:00 O2 Sat by Pulse Oximetry (%) 100 02/16/17 22:00 Cardiovascular: Yes: S1, S2 Respiratory: Yes: WNL, Regular, CTA Bilaterally Gastrointestinal: Yes: WNL, Normal Bowel Sounds. No: Tenderness Edema: No Labs: CBC, BMP 02/17/17 05:45 02/17/17 05:45 Problem List - Problems (1) CLL (chronic lymphocytic leukemia) Code(s): C91.10 - CHRONIC LYMPHOCYTIC LEUK OF B-CELL TYPE NOT ACHIEVE REMIS (2) Pneumonia, community acquired Code(s): J18.9 - PNEUMONIA, UNSPECIFIED ORGANISM (3) CVA (cerebral vascular accident) Code(s): I63.9 - CEREBRAL INFARCTION, UNSPECIFIED Qualifiers: CVA mechanism: embolism Precerebral and cerebral artery: anterior cerebral artery Laterality of affected vessel: left Qualified Code(s) : I63.422 - Cerebral infarction due to embolism of left anterior cerebral artery (4) Chronic leukemia Code(s): C95.10 - CHRONIC LEUKEMIA OF UNSP CELL TYPE NOT ACHIEVE REMISSION (5) Atrial fibrillation Code(s): I48.91 - UNSPECIFIED ATRIAL FIBRILLATION Assessment/Plan Laboratory Tests 02/17/17 05:45 WBC 20.8 H Hgb 8.8 L Hct 27.5 L Plt Count 145 Microbiology 02/12/17 18:00 Blood - Peripheral Venous Blood Culture - Preliminary NO GROWTH OBTAINED AFTER 96 HOURS, INCUBATION TO CONTINUE FOR 1 DAYS. 02/12/17 18:00 Blood - Peripheral Venous Blood Culture - Preliminary NO GROWTH OBTAINED AFTER 96 HOURS, INCUBATION TO CONTINUE FOR 1 DAYS. Assessment Respiratory failure Bilateral pulmonary infiltrates etiology thus far unspecified CLL Atrial fibrillation Bilateral strokes Plan Plan to complete current antibiotic by tomorrow Sputum c/s pending ??? Josselyn Prognosis poor Critical care time spent YES 38 minutes today Naomi CHATMAN
[2017-02-17] MEDS ORDERED: PT OWN MED DRAWER 7, Y5N ONE ×3 (09:07→20:07)
[2017-02-17] MEDS: METOPROLOL TARTRATE 25 MG TABLET (FP) NGT SCH ×2 (09:13→22:11)
[2017-02-17] MEDS: MAGNESIUM OXIDE 400 MG TABLET (FP) PO SCH ×2 (09:13→22:11)
[2017-02-17] MEDS: TAMSULOSIN HCL 0.4 MG CAP.ER.24H (FP) PO SCH (09:13)
[2017-02-17] MEDS: APIXABAN 5 MG TABLET PO SCH ×2 (09:13→22:11)
[2017-02-17] MEDS: PANTOPRAZOLE SODIUM 100 ML IVPB SCH (09:14)
[2017-02-17] MEDS: NYSTATIN 100,000 UNIT/GM TOPICAL CREAM 15 GM TUBE TP SCH ×2 (09:15→22:13)
--- NOTE | 2017-02-17 10:52 | PN ---
Progress Note, Physician Chief Complaint: Unable to obtain, patient intubated - Current Medication List Current Medications: Active Medications Acetaminophen (Tylenol -) 650 mg PO Q6H PRN PRN Reason: FEVER OR PAIN Last Admin: 02/16/17 22:11 Dose: 650 mg Apixaban (Eliquis -) 5 mg PO BID [facility] Last Admin: 02/17/17 09:13 Dose: 5 mg Atorvastatin Calcium (Lipitor -) 40 mg PO HS FREDY Last Admin: 02/16/17 22:11 Dose: 40 mg Diltiazem HCl (Cardizem Injection -) 10 mg IVPUSH Q4H PRN PRN Reason: Tachycardia >100 Last Admin: 02/13/17 16:37 Dose: 10 mg Heparin Sodium (Porcine) (Heparin -) 1,000 unit IVPUSH PRN PRN PRN Reason: Heparin Meropenem 500 mg/ Dextrose 100 mls @ 100 mls/hr IVPB Q8H-IV [facility]EDY Last Admin: 02/17/17 09:13 Dose: 100 mls/hr Diltiazem HCl 125 mg/ Dextrose 125 mls @ 7.5 mls/hr IVPB TITR FREDY; 7.5 MG/HR PRN Reason: Protocol Last Admin: 02/16/17 17:38 Dose: Not Given Pantoprazole Sodium (Protonix 40mg Ivpb (Pre-Docked)) 100 mls @ 200 mls/hr IVPB DAILY [facility] Last Admin: 02/17/17 09:14 Dose: 200 mls/hr Norepinephrine Bitartrate 8, (000 mcg/ Dextrose) 500 mls @ 7.76 mls/hr IV ASDIR FREDY; 0.03 MCG/KG/MIN PRN Reason: Protocol Last Titration: 02/17/17 05:00 Dose: 0.02 mcg/kg/min Insulin Aspart (Novolog Vial Sliding Scale -) 1 vial SQ BIDAC FREDY PRN Reason: Protocol Last Admin: 02/17/17 06:55 Dose: 6 units Magnesium Oxide (Mag-Ox -) 400 mg PO BID [facility] Last Admin: 02/17/17 09:13 Dose: 400 mg Metoprolol Tartrate (Lopressor -) 25 mg NGT BID [facility] Last Admin: 02/17/17 09:13 Dose: 25 mg Nystatin (Mycostatin Cream -) 1 applic TP BID [facility] Last Admin: 02/17/17 09:15 Dose: 1 applic Ondansetron HCl (Zofran Injection) 4 mg IVPB Q6H PRN PRN Reason: NAUSEA Last Admin: 02/11/17 14:36 Dose: 4 mg Tamsulosin HCl (Flomax -) 0.4 mg PO DAILY@0830 [facility] Last Admin: 02/17/17 09:13 Dose: 0.4 mg - Objective Vital Signs: Vital Signs Temperature 98.7 F 02/17/17 09:47 Pulse Rate 81 02/17/17 09:50 Respiratory Rate 29 H 02/17/17 09:50 Blood Pressure 122/71 02/17/17 09:47 O2 Sat by Pulse Oximetry (%) 93 L 02/17/17 10:12 Constitutional: Yes: No Distress, Calm, Other (sedated) Cardiovascular: Yes: Tachycardia. No: Pulse Irregular, Gallop, Murmur, Rub Respiratory: Yes: Intubated, Mechanically Ventilated, Rhonchi, Tachypnea Gastrointestinal: Yes: Normal Bowel Sounds, Soft. No: Distention, Tenderness Extremities: Yes: WNL Edema: No Labs: CBC, BMP 02/17/17 05:45 02/17/17 05:45 Problem List - Problems (1) Paroxysmal atrial fibrillation with rapid ventricular response Code(s): I48.0 - PAROXYSMAL ATRIAL FIBRILLATION (2) CVA (cerebral vascular accident) Code(s): I63.9 - CEREBRAL INFARCTION, UNSPECIFIED Qualifiers: CVA mechanism: embolism Precerebral and cerebral artery: anterior cerebral artery Laterality of affected vessel: left Qualified Code(s) : I63.422 - Cerebral infarction due to embolism of left anterior cerebral artery (3) Acute respiratory failure Code(s): J96.00 - ACUTE RESPIRATORY FAILURE, UNSP W HYPOXIA OR HYPERCAPNIA (4) Pneumonia, community acquired Code(s): J18.9 - PNEUMONIA, UNSPECIFIED ORGANISM (5) CKD (chronic kidney disease) Code(s): N18.9 - CHRONIC KIDNEY DISEASE, UNSPECIFIED Qualifiers: Chronic kidney disease stage: stage 2 (mild) Qualified Code(s): N18.2 - Chronic kidney disease, stage 2 (mild) (6) CLL (chronic lymphocytic leukemia) Code(s): C91.10 - CHRONIC LYMPHOCYTIC LEUK OF B-CELL TYPE NOT ACHIEVE REMIS (7) CAD (coronary artery disease) Code(s): I25.10 - ATHSCL HEART DISEASE OF [place] CORONARY ARTERY W/O ANG PCTRS Qualifiers: Coronary Disease-Associated Artery/Lesion type: [place] artery [place] vs. transplanted heart: [place] heart Associated angina: without angina Qualified Code(s): I25.10 - Atherosclerotic heart disease of [place] coronary artery without angina pectoris (8) HLD (hyperlipidemia) Code(s): E78.5 - HYPERLIPIDEMIA, UNSPECIFIED Qualifiers: Hyperlipidemia type: pure hypercholesterolemia Qualified Code(s): E78.00 - Pure hypercholesterolemia, unspecified; E78.0 - Pure hypercholesterolemia (9) HTN (hypertension) Code(s): I10 - ESSENTIAL (PRIMARY) HYPERTENSION Qualifiers: Hypertension type: essential hypertension Qualified Code(s): I10 - Essential (primary) hypertension (10) Hypercalcemia Code(s): E83.52 - HYPERCALCEMIA (11) Hypophosphatemia Code(s): E83.39 - OTHER DISORDERS OF PHOSPHORUS METABOLISM Assessment/Plan (1) Acute respiratory failure -continue ventilator support -pulmonary following (2) Pneumonia, community acquired Assessment/Plan: -continue merrem per ID -vancomycin discontinued -ID note reviewed Code(s): J18.9 - PNEUMONIA, UNSPECIFIED ORGANISM (3) CKD (chronic kidney disease) Assessment/Plan: -at baseline -monitor Code(s): N18.9 - CHRONIC KIDNEY DISEASE, UNSPECIFIED Qualifiers: Chronic kidney disease stage: stage 2 (mild) Qualified Code(s): N18.2 - Chronic kidney disease, stage 2 (mild) (4) CLL (chronic lymphocytic leukemia) Assessment/Plan: -ibrutinib held -oncology following Code(s): C91.10 - CHRONIC LYMPHOCYTIC LEUK OF B-CELL TYPE NOT ACHIEVE REMIS (5) CAD (coronary artery disease) Assessment/Plan: -quiescent, no chest pain -continue home regimen Code(s): I25.10 - ATHSCL HEART DISEASE OF [place] CORONARY ARTERY W/O ANG PCTRS (6) HLD (hyperlipidemia) Assessment/Plan: -lipitor per feeding tube Code(s): E78.5 - HYPERLIPIDEMIA, UNSPECIFIED (7) HTN (hypertension) Assessment/Plan: -controlled -continue diltiazem and metoprolol Code(s): I10 - ESSENTIAL (PRIMARY) HYPERTENSION (8) Hypercalcemia -stable (9) Acute CVA with obtundation -status worsening -neurology following (10) Paroxysmal atrial fibrillation -continue metoprolol and prn diltiazem -on eliquis (11) Septic shock -concern for septic shock, requiring pressors and leukocytosis -however could be neurogenic shock as can see fevers and hypotension there as well -check sputum culture for yeast -ID following -continue pulmonary and blood pressure support 40 minutes spent in critical care time with this patient
--- NOTE | 2017-02-17 11:40 | PN ---
Progress Note, Physician History of Present Illness: Remains intubated for airway protection. Defervesced, remains in NSR. - Current Medication List Current Medications: Active Medications Acetaminophen (Tylenol -) 650 mg PO Q6H PRN PRN Reason: FEVER OR PAIN Last Admin: 02/16/17 22:11 Dose: 650 mg Apixaban (Eliquis -) 5 mg PO BID [facility] Last Admin: 02/17/17 09:13 Dose: 5 mg Atorvastatin Calcium (Lipitor -) 40 mg PO HS [facility] Last Admin: 02/16/17 22:11 Dose: 40 mg Diltiazem HCl (Cardizem Injection -) 10 mg IVPUSH Q4H PRN PRN Reason: Tachycardia >100 Last Admin: 02/13/17 16:37 Dose: 10 mg Heparin Sodium (Porcine) (Heparin -) 1,000 unit IVPUSH PRN PRN PRN Reason: Heparin Meropenem 500 mg/ Dextrose 100 mls @ 100 mls/hr IVPB Q8H-IV [facility] Last Admin: 02/17/17 09:13 Dose: 100 mls/hr Diltiazem HCl 125 mg/ Dextrose 125 mls @ 7.5 mls/hr IVPB TITR [facility]Y; 7.5 MG/HR PRN Reason: Protocol Last Admin: 02/16/17 17:38 Dose: Not Given Pantoprazole Sodium (Protonix 40mg Ivpb (Pre-Docked)) 100 mls @ 200 mls/hr IVPB DAILY [facility] Last Admin: 02/17/17 09:14 Dose: 200 mls/hr Norepinephrine Bitartrate 8, (000 mcg/ Dextrose) 500 mls @ 7.76 mls/hr IV ASDIR FREDY; 0.03 MCG/KG/MIN PRN Reason: Protocol Last Titration: 02/17/17 05:00 Dose: 0.02 mcg/kg/min Insulin Aspart (Novolog Vial Sliding Scale -) 1 vial SQ BIDAC FREDY PRN Reason: Protocol Last Admin: 02/17/17 06:55 Dose: 6 units Magnesium Oxide (Mag-Ox -) 400 mg PO BID [facility] Last Admin: 02/17/17 09:13 Dose: 400 mg Metoprolol Tartrate (Lopressor -) 25 mg NGT BID [facility] Last Admin: 02/17/17 09:13 Dose: 25 mg Nystatin (Mycostatin Cream -) 1 applic TP BID [facility] Last Admin: 02/17/17 09:15 Dose: 1 applic Ondansetron HCl (Zofran Injection) 4 mg IVPB Q6H PRN PRN Reason: NAUSEA Last Admin: 02/11/17 14:36 Dose: 4 mg Tamsulosin HCl (Flomax -) 0.4 mg PO DAILY@0830 [facility] Last Admin: 02/17/17 09:13 Dose: 0.4 mg - Objective Vital Signs: Vital Signs Temperature 98.7 F 02/17/17 09:47 Pulse Rate 81 02/17/17 09:50 Respiratory Rate 29 H 02/17/17 09:50 Blood Pressure 122/71 02/17/17 09:47 O2 Sat by Pulse Oximetry (%) 93 L 02/17/17 10:12 Cardiovascular: Yes: Regular Rate and Rhythm Respiratory: Yes: Intubated, Mechanically Ventilated, Rhonchi Gastrointestinal: Yes: Normal Bowel Sounds, Soft Edema: No Labs: CBC, BMP 02/17/17 05:45 02/17/17 05:45 - ....Imaging Chest X-ray: Report Reviewed (Bilateral consolidations with right progressing) Problem List - Problems (1) Acute respiratory failure Code(s): J96.00 - ACUTE RESPIRATORY FAILURE, UNSP W HYPOXIA OR HYPERCAPNIA (2) Ascending aortic aneurysm Code(s): I71.2 - THORACIC AORTIC ANEURYSM, WITHOUT RUPTURE (3) CKD (chronic kidney disease) Code(s): N18.9 - CHRONIC KIDNEY DISEASE, UNSPECIFIED Qualifiers: Chronic kidney disease stage: stage 2 (mild) Qualified Code(s): N18.2 - Chronic kidney disease, stage 2 (mild) (4) CLL (chronic lymphocytic leukemia) Code(s): C91.10 - CHRONIC LYMPHOCYTIC LEUK OF B-CELL TYPE NOT ACHIEVE REMIS (5) Hx of CABG Code(s): Z95.1 - PRESENCE OF AORTOCORONARY BYPASS GRAFT (6) Pneumonia, community acquired Code(s): J18.9 - PNEUMONIA, UNSPECIFIED ORGANISM (7) CAD (coronary artery disease) Code(s): I25.10 - ATHSCL HEART DISEASE OF [place] CORONARY ARTERY W/O ANG PCTRS Qualifiers: Coronary Disease-Associated Artery/Lesion type: [place] artery [place] vs. transplanted heart: [place] heart Associated angina: without angina Qualified Code(s): I25.10 - Atherosclerotic heart disease of [place] coronary artery without angina pectoris (8) HLD (hyperlipidemia) Code(s): E78.5 - HYPERLIPIDEMIA, UNSPECIFIED Qualifiers: Hyperlipidemia type: pure hypercholesterolemia Qualified Code(s): E78.00 - Pure hypercholesterolemia, unspecified; E78.0 - Pure hypercholesterolemia (9) HTN (hypertension) Code(s): I10 - ESSENTIAL (PRIMARY) HYPERTENSION Qualifiers: Hypertension type: essential hypertension Qualified Code(s): I10 - Essential (primary) hypertension (10) 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 heart failure Code(s): I51.9 - HEART DISEASE, UNSPECIFIED (11) CVA (cerebral vascular accident) Code(s): I63.9 - CEREBRAL INFARCTION, UNSPECIFIED Qualifiers: CVA mechanism: embolism Precerebral and cerebral artery: anterior cerebral artery Laterality of affected vessel: left Qualified Code(s) : I63.422 - Cerebral infarction due to embolism of left anterior cerebral artery (12) At risk for aspiration Code(s): Z91.89 - [facility] PERSONAL RISK FACTORS, NOT ELSEWHERE CLASSIFIED (13) Paroxysmal atrial fibrillation with rapid ventricular response Code(s): I48.0 - PAROXYSMAL ATRIAL FIBRILLATION (14) Anemia Code(s): D64.9 - ANEMIA, UNSPECIFIED Qualifiers: Anemia type: unspecified type Qualified Code(s): D64.9 - Anemia, unspecified Assessment/Plan 02/03/2017 Normal biventricular size and fxn, mild NEHEMIAH, mild LA mri of brain showed multiple area of infarct carotid ultrasound is no stenosis 02/11/2017 Normal biventricular size and fxn, mild-mod MR, abnl LV compliance 1. Acute bihemispheric stroke in context of newly diagnosed paroxysmal atrial fibrillation -> NSR 2. Acute hypoxic respiratory failure referable to CAP and aspiration PNA now on ventilator 3. Coronary artery disease status post CABG, angina pectoris 4. Hypertension 5. Hypercholesterolemia 6. Ascending aortic aneurysm 7. CLL 8. Hypernatremia and hypercalcemia 9. anemia 10. CKD PLAN: 1. Continue Eliquis 5 bid, Lopressor 25 bid, Lipitor 40 qhs and Accupril 10 qd as hemodynamics tolerate. Cardizem IV as needed for rate-control. 2. Imbruvica has been d/jose 3. Ascending aortic aneurysm can be followed as outpatient 4. Enteral feeds with free water flushes, wean FIO2 as tolerated 5. GI prophylaxis, BD, complete Meropenem course, plan of care d/w daughter
--- NOTE | 2017-02-17 12:36 | PN ---
Progress Note (short form) - Note Progress Note: cc initial right sided arm and leg weakness x february 10 and detioration of mental status 76 year old male history of CAD, htn , hyperlipidemia admitted for pnemonia .and found to have right sided hemiparesis, mri showed multiple bi hemispheric stroke. Past Medical History as above and CLL, Polycythemia vera , renal insufficiency he is on oral anticoagulation and over the weekend , he was intubated. he is not getting sedation and not waking up. he is triggering vent at this time Neurological Examination Patient is obtunded and not responding to pain or verabal stimulti a no neck stiffness pupils is small and reactive, corneal reflex is present mri of brain showed multiple area of infarct carotid ultrasound is no stenosis repeat ct scan showed multiple non hemorrhagic infarct , no acute bleed ( friday , january) Assessment and Plan-Multiple bihemispheric stroke,etiology atrial fibrillation intubated and not on sedation and not waking up primary team has spoken to stroke team at [facility] and he would not benefit from transfer at this time. he has been started on po eliquis --continue PT , DVT prophylaxis, -- suggest to repeat a ct of head continue abx and supportive care thanks you so much Abilio Granado MD
[2017-02-17] MEDS ORDERED: POTASSIUM CHLORIDE ORAL LIQUID 20 MEQ/15 ML PO ONE (12:58)
--- NOTE | 2017-02-17 13:09 | PN ---
Teaching Attending Note Name of Resident: Kevon Sky ATTENDING PHYSICIAN STATEMENT I saw and evaluated the patient. I reviewed the resident's note and discussed the case with the resident. I agree with the resident's findings and plan as documented. SUBJECTIVE: Pt seen and examined in the ICU. Remains intubated, poorly responsive off sedation. On low dose levophed gtt. Fever curve trending down. OBJECTIVE: Last Vital Signs Temp Pulse Resp BP Pulse Ox 99.8 F H 84 26 H 102/59 93 L 02/17/17 11:56 02/17/17 11:56 02/17/17 11:56 02/17/17 11:56 02/17/17 10:12 Intake & Output 02/14/17 02/15/17 02/16/17 02/17/17 23:59 23:59 23:59 23:59 Intake Total 6420 1800 2700 1600 Output Total 1100 3075 2150 900 Balance 5320 -1275 550 700 Weight 154 lb 156 lb 152 lb 1.6 oz 150 lb Gen: intubated, poorly responsive Heart: RRR Lung: bilateral rhonchi Abd: soft, nontender Ext: no edema CBC, BMP 02/17/17 05:45 02/17/17 05:45 Active Medications Acetaminophen (Tylenol -) 650 mg PO Q6H PRN PRN Reason: FEVER OR PAIN Last Admin: 02/16/17 22:11 Dose: 650 mg Apixaban (Eliquis -) 5 mg PO BID [facility] Last Admin: 02/17/17 09:13 Dose: 5 mg Atorvastatin Calcium (Lipitor -) 40 mg PO HS [facility] Last Admin: 02/16/17 22:11 Dose: 40 mg Diltiazem HCl (Cardizem Injection -) 10 mg IVPUSH Q4H PRN PRN Reason: Tachycardia >100 Last Admin: 02/13/17 16:37 Dose: 10 mg Meropenem 500 mg/ Dextrose 100 mls @ 100 mls/hr IVPB Q8H-IV [facility] Last Admin: 02/17/17 09:13 Dose: 100 mls/hr Pantoprazole Sodium (Protonix 40mg Ivpb (Pre-Docked)) 100 mls @ 200 mls/hr IVPB DAILY [facility] Last Admin: 02/17/17 09:14 Dose: 200 mls/hr Norepinephrine Bitartrate 8, (000 mcg/ Dextrose) 500 mls @ 7.76 mls/hr IV ASDIR FREDY; 0.03 MCG/KG/MIN PRN Reason: Protocol Last Titration: 02/17/17 05:00 Dose: 0.02 mcg/kg/min Insulin Aspart (Novolog Vial Sliding Scale -) 1 vial SQ BIDAC FR[facility]Y PRN Reason: Protocol Last Admin: 02/17/17 06:55 Dose: 6 units Magnesium Oxide (Mag-Ox -) 400 mg PO BID [facility] Last Admin: 02/17/17 09:13 Dose: 400 mg Metoprolol Tartrate (Lopressor -) 25 mg NGT BID [facility] Last Admin: 02/17/17 09:13 Dose: 25 mg Nystatin (Mycostatin Cream -) 1 applic TP BID [facility] Last Admin: 02/17/17 09:15 Dose: 1 applic Ondansetron HCl (Zofran Injection) 4 mg IVPB Q6H PRN PRN Reason: NAUSEA Last Admin: 02/11/17 14:36 Dose: 4 mg Potassium Chloride (Potassium Chloride Oral Liquid) 40 meq PO ONCE ONE Stop: 02/17/17 12:59 Tamsulosin HCl (Flomax -) 0.4 mg PO DAILY@0830 [facility] Last Admin: 02/17/17 09:13 Dose: 0.4 mg ASSESSMENT AND PLAN: Acute Hypoxic Respiratory Failure Acute Bihemispheric Stroke Paroxysmal Atrial Fibrillation Altered Mental Status Pneumonia Septic Shock CAD s/p CABG CLL HTN Hypercholesterolemia CKD - continue antibiotics - f/u cultures - taper off levophed gtt, maintain MAP >65 - rate controlled - continue anticoagulation - minimize sedation to assess mental status - neurology f/u - replete lytes - enteral feeds - spontaneous breathing trials as tolerated but poor candidate for weaning due to poor mental status - DVT/GI prophylaxis - continue ICU monitoring - discussed case with daughter at bedside, answered all questions critical care time spent in reviewing chart, evaluating patient and formulating plan 38 min Problem List - Problems (1) Pneumonia, community acquired Code(s): J18.9 - PNEUMONIA, UNSPECIFIED ORGANISM (2) CAD (coronary artery disease) Code(s): I25.10 - ATHSCL HEART DISEASE OF [place] CORONARY ARTERY W/O ANG PCTRS Qualifiers: Coronary Disease-Associated Artery/Lesion type: [place] artery [place] vs. transplanted heart: [place] heart Associated angina: without angina Qualified Code(s): I25.10 - Atherosclerotic heart disease of [place] coronary artery without angina pectoris (3) HLD (hyperlipidemia) Code(s): E78.5 - HYPERLIPIDEMIA, UNSPECIFIED Qualifiers: Hyperlipidemia type: pure hypercholesterolemia Qualified Code(s): E78.00 - Pure hypercholesterolemia, unspecified; E78.0 - Pure hypercholesterolemia (4) HTN (hypertension) Code(s): I10 - ESSENTIAL (PRIMARY) HYPERTENSION Qualifiers: Hypertension type: essential hypertension Qualified Code(s): I10 - Essential (primary) hypertension (5) CLL (chronic lymphocytic leukemia) Code(s): C91.10 - CHRONIC LYMPHOCYTIC LEUK OF B-CELL TYPE NOT ACHIEVE REMIS
--- NOTE | 2017-02-17 13:42 | PN ---
Progress Note, Physician History of Present Illness: Pt seen and examined at bedside. Called to see him as creatinine is rising. Pt had a CVA. He is now in the ICU. Pt is intubated. - Current Medication List Current Medications: Active Medications Acetaminophen (Tylenol -) 650 mg PO Q6H PRN PRN Reason: FEVER OR PAIN Last Admin: 02/16/17 22:11 Dose: 650 mg Apixaban (Eliquis -) 5 mg PO BID [facility] Last Admin: 02/17/17 09:13 Dose: 5 mg Atorvastatin Calcium (Lipitor -) 40 mg PO HS [facility] Last Admin: 02/16/17 22:11 Dose: 40 mg Diltiazem HCl (Cardizem Injection -) 10 mg IVPUSH Q4H PRN PRN Reason: Tachycardia >100 Last Admin: 02/13/17 16:37 Dose: 10 mg Meropenem 500 mg/ Dextrose 100 mls @ 100 mls/hr IVPB Q8H-IV [facility] Last Admin: 02/17/17 09:13 Dose: 100 mls/hr Pantoprazole Sodium (Protonix 40mg Ivpb (Pre-Docked)) 100 mls @ 200 mls/hr IVPB DAILY [facility] Last Admin: 02/17/17 09:14 Dose: 200 mls/hr Norepinephrine Bitartrate 8, (000 mcg/ Dextrose) 500 mls @ 7.76 mls/hr IV ASDIR FREDY; 0.03 MCG/KG/MIN PRN Reason: Protocol Last Titration: 02/17/17 05:00 Dose: 0.02 mcg/kg/min Insulin Aspart (Novolog Vial Sliding Scale -) 1 vial SQ BIDAC FREDY PRN Reason: Protocol Last Admin: 02/17/17 06:55 Dose: 6 units Magnesium Oxide (Mag-Ox -) 400 mg PO BID [facility] Last Admin: 02/17/17 09:13 Dose: 400 mg Metoprolol Tartrate (Lopressor -) 25 mg NGT BID [facility] Last Admin: 02/17/17 09:13 Dose: 25 mg Nystatin (Mycostatin Cream -) 1 applic TP BID [facility] Last Admin: 02/17/17 09:15 Dose: 1 applic Ondansetron HCl (Zofran Injection) 4 mg IVPB Q6H PRN PRN Reason: NAUSEA Last Admin: 02/11/17 14:36 Dose: 4 mg Tamsulosin HCl (Flomax -) 0.4 mg PO DAILY@0830 [facility] Last Admin: 02/17/17 09:13 Dose: 0.4 mg - Objective Vital Signs: Vital Signs Temperature 99.8 F H 02/17/17 12:00 Pulse Rate 84 02/17/17 12:00 Respiratory Rate 26 H 02/17/17 12:00 Blood Pressure 102/59 02/17/17 12:00 O2 Sat by Pulse Oximetry (%) 93 L 02/17/17 10:12 Constitutional: Yes: Calm Eyes: Yes: Conjunctiva Clear HENT: Yes: Atraumatic Cardiovascular: Yes: S1, S2 Respiratory: Yes: Mechanically Ventilated Gastrointestinal: Yes: Soft Genitourinary: Yes: [place] Present Edema: No Neurological: Yes: Lethargy Labs: CBC, BMP 02/17/17 05:45 02/17/17 05:45 - ....Imaging Chest X-ray: Report Reviewed Problem List - Problems (1) CLL (chronic lymphocytic leukemia) Code(s): C91.10 - CHRONIC LYMPHOCYTIC LEUK OF B-CELL TYPE NOT ACHIEVE REMIS (2) Hypercalcemia Code(s): E83.52 - HYPERCALCEMIA Assessment/Plan Current Medications Generic Name Dose Route Start Last Admin Trade Name Freq PRN Reason Stop Dose Admin Acetaminophen 650 mg 02/04/17 12:32 02/16/17 22:11 Tylenol - PO 650 mg Q6H PRN Administration FEVER OR PAIN Apixaban 5 mg 02/13/17 22:00 02/17/17 09:13 Eliquis - PO 5 mg BID [facility]Y Administration Atorvastatin Calcium 40 mg 02/10/17 22:00 02/16/17 22:11 Lipitor - PO 40 mg HS FREDY Administration Diltiazem HCl 10 mg 02/13/17 05:42 02/13/17 16:37 Cardizem Injection - IVPUSH 10 mg Q4H PRN Administration Tachycardia >100 Meropenem 500 mg/ Dextrose 100 mls @ 100 mls/hr 02/10/17 15:45 02/17/17 09:13 IVPB 100 mls/hr Q8H-IV FREDY Administration Pantoprazole Sodium 100 mls @ 200 mls/hr 02/14/17 10:00 02/17/17 09:14 Protonix 40mg Ivpb (Pre-Docked) IVPB 200 mls/hr DAILY [facility] Administration Norepinephrine Bitartrate 8, 500 mls @ 7.76 mls/hr 02/16/17 20:45 02/17/17 05: 00 000 mcg/ Dextrose IV 0.02 mcg/kg/min ASDIR FREDY Titration Protocol 0.03 MCG/KG/MIN Insulin Aspart 1 vial 02/09/17 16:30 02/17/17 06:55 Novolog Vial Sliding Scale - SQ 6 units BIDAC FREDY Administration Protocol Magnesium Oxide 400 mg 02/04/17 22:00 02/17/17 09:13 Mag-Ox - PO 400 mg BID [facility] Administration Metoprolol Tartrate 25 mg 02/16/17 19:56 02/17/17 09:13 Lopressor - NGT 25 mg BID [facility]Y Administration Nystatin 1 applic 02/12/17 23:15 02/17/17 09:15 Mycostatin Cream - TP 1 applic BID [facility] Administration Ondansetron HCl 4 mg 02/10/17 19:29 02/11/17 14:36 Zofran Injection IVPB 4 mg Q6H PRN Administration NAUSEA Tamsulosin HCl 0.4 mg 02/05/17 08:30 02/17/17 09:13 Flomax - PO 0.4 mg DAILY@0830 [facility] Administration Impression 1. Hypercalcemia 2. CAD 3. HTN 4. Chol 5. hx leukemia 6. non hodgkins lymphoma 7. CKD 8. hypokalemia 9. CVA 10. JEROMY Plan - renal function is worsening - send urine lytes and creatinine to calculate FENa - repeat labs in am - monitor urine output - will follow pt - replace potassium - cont tube feeds - discussed care with pts family - discussed with ICU team - consider starting gently hydration with 1/2ns - pressors as needed for MAP of 65 Dr Hopper
[2017-02-17] MEDS ORDERED: SODIUM CHLORIDE 0.45% 1,000 ML IV SCH (13:45)
--- NOTE | 2017-02-17 15:08 | PN ---
Progress Note, Physician History of Present Illness: Remains intubated for airway protection, obtunded. Defervesced, remains in NSR. - Current Medication List Current Medications: Active Medications Acetaminophen (Tylenol -) 650 mg PO Q6H PRN PRN Reason: FEVER OR PAIN Last Admin: 02/16/17 22:11 Dose: 650 mg Apixaban (Eliquis -) 5 mg PO BID FREDY Last Admin: 02/17/17 09:13 Dose: 5 mg Atorvastatin Calcium (Lipitor -) 40 mg PO HS FREDY Last Admin: 02/16/17 22:11 Dose: 40 mg Diltiazem HCl (Cardizem Injection -) 10 mg IVPUSH Q4H PRN PRN Reason: Tachycardia >100 Last Admin: 02/13/17 16:37 Dose: 10 mg Meropenem 500 mg/ Dextrose 100 mls @ 100 mls/hr IVPB Q8H-IV FREDY Last Admin: 02/17/17 09:13 Dose: 100 mls/hr Pantoprazole Sodium (Protonix 40mg Ivpb (Pre-Docked)) 100 mls @ 200 mls/hr IVPB DAILY FREDY Last Admin: 02/17/17 09:14 Dose: 200 mls/hr Norepinephrine Bitartrate 8, (000 mcg/ Dextrose) 500 mls @ 7.76 mls/hr IV ASDIR FREDY; 0.03 MCG/KG/MIN PRN Reason: Protocol Last Titration: 02/17/17 05:00 Dose: 0.02 mcg/kg/min Sodium Chloride (1/2 Normal Saline) 1,000 mls @ 42 mls/hr IV ASDIR FREDY Last Admin: 02/17/17 14:47 Dose: 42 mls/hr Insulin Aspart (Novolog Vial Sliding Scale -) 1 vial SQ BIDAC FREDY PRN Reason: Protocol Last Admin: 02/17/17 06:55 Dose: 6 units Magnesium Oxide (Mag-Ox -) 400 mg PO BID FREDY Last Admin: 02/17/17 09:13 Dose: 400 mg Metoprolol Tartrate (Lopressor -) 25 mg NGT BID FREDY Last Admin: 02/17/17 09:13 Dose: 25 mg Nystatin (Mycostatin Cream -) 1 applic TP BID FREDY Last Admin: 02/17/17 09:15 Dose: 1 applic Ondansetron HCl (Zofran Injection) 4 mg IVPB Q6H PRN PRN Reason: NAUSEA Last Admin: 02/11/17 14:36 Dose: 4 mg Tamsulosin HCl (Flomax -) 0.4 mg PO DAILY@0830 FREDY Last Admin: 02/17/17 09:13 Dose: 0.4 mg - Objective Vital Signs: Vital Signs Temperature 100.4 F H 02/17/17 14:00 Pulse Rate 84 02/17/17 14:00 Respiratory Rate 26 H 02/17/17 14:00 Blood Pressure 94/57 02/17/17 14:00 O2 Sat by Pulse Oximetry (%) 93 L 02/17/17 10:12 Constitutional: Yes: No Distress, Calm Neck: Yes: Supple Cardiovascular: Yes: Regular Rate and Rhythm Respiratory: Yes: Intubated, Mechanically Ventilated, Rhonchi Gastrointestinal: Yes: Normal Bowel Sounds, Soft Edema: No Labs: CBC, BMP 02/17/17 05:45 02/17/17 05:45 Problem List - Problems (1) Acute respiratory failure Code(s): J96.00 - ACUTE RESPIRATORY FAILURE, UNSP W HYPOXIA OR HYPERCAPNIA (2) Ascending aortic aneurysm Code(s): I71.2 - THORACIC AORTIC ANEURYSM, WITHOUT RUPTURE (3) CKD (chronic kidney disease) Code(s): N18.9 - CHRONIC KIDNEY DISEASE, UNSPECIFIED Qualifiers: Chronic kidney disease stage: stage 2 (mild) Qualified Code(s): N18.2 - Chronic kidney disease, stage 2 (mild) (4) CLL (chronic lymphocytic leukemia) Code(s): C91.10 - CHRONIC LYMPHOCYTIC LEUK OF B-CELL TYPE NOT ACHIEVE REMIS (5) Hx of CABG Code(s): Z95.1 - PRESENCE OF AORTOCORONARY BYPASS GRAFT (6) Pneumonia, community acquired Code(s): J18.9 - PNEUMONIA, UNSPECIFIED ORGANISM (7) CAD (coronary artery disease) Code(s): I25.10 - ATHSCL HEART DISEASE OF [place] CORONARY ARTERY W/O ANG PCTRS Qualifiers: Coronary Disease-Associated Artery/Lesion type: [place] artery [place] vs. transplanted heart: [place] heart Associated angina: without angina Qualified Code(s): I25.10 - Atherosclerotic heart disease of [place] coronary artery without angina pectoris (8) HLD (hyperlipidemia) Code(s): E78.5 - HYPERLIPIDEMIA, UNSPECIFIED Qualifiers: Hyperlipidemia type: pure hypercholesterolemia Qualified Code(s): E78.00 - Pure hypercholesterolemia, unspecified; E78.0 - Pure hypercholesterolemia (9) HTN (hypertension) Code(s): I10 - ESSENTIAL (PRIMARY) HYPERTENSION Qualifiers: Hypertension type: essential hypertension Qualified Code(s): I10 - Essential (primary) hypertension (10) 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 heart failure Code(s): I51.9 - HEART DISEASE, UNSPECIFIED (11) CVA (cerebral vascular accident) Code(s): I63.9 - CEREBRAL INFARCTION, UNSPECIFIED Qualifiers: CVA mechanism: embolism Precerebral and cerebral artery: anterior cerebral artery Laterality of affected vessel: left Qualified Code(s) : I63.422 - Cerebral infarction due to embolism of left anterior cerebral artery (12) At risk for aspiration Code(s): Z91.89 - [facility] PERSONAL RISK FACTORS, NOT ELSEWHERE CLASSIFIED (13) Paroxysmal atrial fibrillation with rapid ventricular response Code(s): I48.0 - PAROXYSMAL ATRIAL FIBRILLATION (14) Anemia Code(s): D64.9 - ANEMIA, UNSPECIFIED Qualifiers: Anemia type: unspecified type Qualified Code(s): D64.9 - Anemia, unspecified Assessment/Plan 02/03/2017 Normal biventricular size and fxn, mild NEHEMIAH, mild CO mri of brain showed multiple area of infarct carotid ultrasound is no stenosis 02/11/2017 Normal biventricular size and fxn, mild-mod MR, abnl LV compliance 1. Acute bihemispheric stroke in context of newly diagnosed paroxysmal atrial fibrillation -> NSR 2. Acute hypoxic respiratory failure referable to CAP and aspiration PNA now on ventilator 3. Coronary artery disease status post CABG, angina pectoris 4. Hypertension 5. Hypercholesterolemia 6. Ascending aortic aneurysm 7. CLL 8. Hypernatremia and hypercalcemia 9. anemia 10. Acute on CKD PLAN: 1. Weaning off Levophed gtt continue Eliquis 5 bid, Lopressor 25 bid, and Lipitor 40 qhs as hemodynamics tolerate. Cardizem IV as needed for rate-control. 2. Imbruvica has been d/jose 3. Ascending aortic aneurysm can be followed as outpatient 4. Enteral feeds with free water flushes, wean FIO2 as tolerated 5. GI prophylaxis, BD, complete Meropenem course, relete K, hydrate with monitor renal recovery, resume Accupril once renal fxn stabilizes
--- NOTE | 2017-02-17 15:18 | PN ---
Physical Exam: SUBJECTIVE: Patient seen and examined. Patient was intubated over the weekend and is minimally reactive to stimuli. OBJECTIVE: Vital Signs Temperature 100.4 F H 02/17/17 14:00 Pulse Rate 84 02/17/17 14:00 Respiratory Rate 26 H 02/17/17 14:00 Blood Pressure 94/57 02/17/17 14:00 O2 Sat by Pulse Oximetry (%) 93 L 02/17/17 10:12 GENERAL: Patient is intubated and minimally reactive to stimuli HEAD: Normal with no signs of trauma. EYES: Pupils equal, constricted and sluggishly reactive to light. NECK: Trachea midline. LUNGS: Breath sounds equal, coarse ronchi bilaterally in all lung [place]. HEART: Regular rate and rhythm, S1, S2 without murmur, rub or gallop. ABDOMEN: Soft, nontender, nondistended, normoactive bowel sounds, no guarding. NEUROLOGICAL: exam was limited due to clinical condition Laboratory Results - last 24 hr 02/16/17 02/16/17 02/17/17 06:33 16:18 05:32 WBC RBC Hgb Hct MCV MCH MCHC RDW Plt Count MPV Neutrophils % Lymphocytes % Monocytes % Metamyelocytes PTT (Actin FS) Puncture Site ABG pH ABG pCO2 at Pt Temp ABG pO2 at Pt Temp ABG HCO3 ABG O2 Sat (Measured) ABG O2 Content ABG Base Excess Prem Test O2 Delivery Device Oxygen Flow Rate Vent Mode Vent Rate Mechanical Rate PEEP Pressure Support Vent Sodium Potassium Chloride Carbon Dioxide Anion Gap BUN Creatinine Creat Clearance w eGFR POC Glucometer [phone] Random Glucose Calcium Phosphorus Total Bilirubin AST ALT Alkaline Phosphatase Total Protein Albumin 02/17/17 02/17/17 02/17/17 05:45 05:45 05:45 WBC 20.8 H RBC 3.26 L Hgb 8.8 L Hct 27.5 L MCV 84.3 MCH 26.9 MCHC 31.9 L RDW 17.4 H Plt Count 145 MPV 9.1 Neutrophils % 84.0 H Lymphocytes % 6.0 L D Monocytes % 8.0 D Metamyelocytes 2 D PTT (Actin FS) 37.8 H Puncture Site ABG pH ABG pCO2 at Pt Temp ABG pO2 at Pt Temp ABG HCO3 ABG O2 Sat (Measured) ABG O2 Content ABG Base Excess Prem Test O2 Delivery Device Oxygen Flow Rate Vent Mode Vent Rate Mechanical Rate PEEP Pressure Support Vent Sodium 149 H Potassium 3.2 L Chloride 119 H Carbon Dioxide 23 Anion Gap 7 L BUN 62 H D Creatinine 1.7 H Creat Clearance w eGFR 39.18 POC Glucometer Random Glucose 282 H Calcium 6.9 L* Phosphorus 2.0 L D Total Bilirubin 0.3 D AST 34 D ALT 34 Alkaline Phosphatase 74 Total Protein 3.8 L Albumin 1.3 L 02/17/17 07:10 WBC RBC Hgb Hct MCV MCH MCHC RDW Plt Count MPV Neutrophils % Lymphocytes % Monocytes % Metamyelocytes PTT (Actin FS) Puncture Site Left radial ABG pH 7.39 ABG pCO2 at Pt Temp 34.7 L ABG pO2 at Pt Temp 136.0 H D ABG HCO3 20.4 L ABG O2 Sat (Measured) 98.8 ABG O2 Content 21.2 ABG Base Excess -3.4 L Prem Test Positive O2 Delivery Device Vent Oxygen Flow Rate 70% Vent Mode A/c Vent Rate 14 Mechanical Rate Y PEEP 5.0 Pressure Support Vent 400 Sodium Potassium Chloride Carbon Dioxide Anion Gap BUN Creatinine Creat Clearance w eGFR POC Glucometer Random Glucose Calcium Phosphorus Total Bilirubin AST ALT Alkaline Phosphatase Total Protein Albumin Active Medications Generic Name Dose Route Start Last Admin Trade Name Freq PRN Reason Stop Dose Admin Acetaminophen 650 mg 02/04/17 12:32 02/16/17 22:11 Tylenol - PO 650 mg Q6H PRN Administration FEVER OR PAIN Apixaban 5 mg 02/13/17 22:00 02/17/17 09:13 Eliquis - PO 5 mg BID FREDY Administration Atorvastatin Calcium 40 mg 02/10/17 22:00 02/16/17 22:11 Lipitor - PO 40 mg HS FREDY Administration Diltiazem HCl 10 mg 02/13/17 05:42 02/13/17 16:37 Cardizem Injection - IVPUSH 10 mg Q4H PRN Administration Tachycardia >100 Meropenem 500 mg/ Dextrose 100 mls @ 100 mls/hr 02/10/17 15:45 02/17/17 09:13 IVPB 100 mls/hr Q8H-IV FREDY Administration Pantoprazole Sodium 100 mls @ 200 mls/hr 02/14/17 10:00 02/17/17 09:14 Protonix 40mg Ivpb (Pre-Docked) IVPB 200 mls/hr DAILY FREDY Administration Norepinephrine Bitartrate 8, 500 mls @ 7.76 mls/hr 02/16/17 20:45 02/17/17 05: 00 000 mcg/ Dextrose IV 0.02 mcg/kg/min ASDIR FREDY Titration Protocol 0.03 MCG/KG/MIN Sodium Chloride 1,000 mls @ 42 mls/hr 02/17/17 13:45 02/17/17 14:47 1/2 Normal Saline IV 42 mls/hr ASDIR FREDY Administration Insulin Aspart 1 vial 02/09/17 16:30 02/17/17 06:55 Novolog Vial Sliding Scale - SQ 6 units BIDAC FREDY Administration Protocol Magnesium Oxide 400 mg 02/04/17 22:00 02/17/17 09:13 Mag-Ox - PO 400 mg BID FREDY Administration Metoprolol Tartrate 25 mg 02/16/17 19:56 02/17/17 09:13 Lopressor - NGT 25 mg BID FREDY Administration Nystatin 1 applic 02/12/17 23:15 02/17/17 09:15 Mycostatin Cream - TP 1 applic BID FREDY Administration Ondansetron HCl 4 mg 02/10/17 19:29 02/11/17 14:36 Zofran Injection IVPB 4 mg Q6H PRN Administration NAUSEA Tamsulosin HCl 0.4 mg 02/05/17 08:30 02/17/17 09:13 Flomax - PO 0.4 mg DAILY@0830 FREDY Administration ASSESSMENT/PLAN: 76 year old male pmh HTN, HLD, CLL, peptic ulcer, 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 Neuro -patient minimally responsive to external stimuli off sedation -pupils constricted, reactive to light Pulmonary -Patient intubated to protect airway 2/2 to deteriorating mental status -weaning trial today failed -saturating 97 on a/c vent, rate of 14 -FIO2 titrated from 70% to 40% -will continue to monitor Cardio -new onset afib w/ RVR -patient remains in NSR, off cardizem drip -will monitor -hypotension -patient had hypotension following fentanyl administration -fentanyl is D/Cd -was on levofed drip; had been titrated off -monitor blood pressure FEN -NS w/ 20 meq KCL @ 100 -patient remains hypokalemic -gave 40 meq KCL liquid through NG tube -will continue to monitor lytes -tube feeds at 50; increased free water to 50 Problem List - Problems (1) CLL (chronic lymphocytic leukemia) Code(s): C91.10 - CHRONIC LYMPHOCYTIC LEUK OF B-CELL TYPE NOT ACHIEVE REMIS (2) Pneumonia, community acquired Code(s): J18.9 - PNEUMONIA, UNSPECIFIED ORGANISM (3) CAD (coronary artery disease) Code(s): I25.10 - ATHSCL HEART DISEASE OF [place] CORONARY ARTERY W/O ANG PCTRS Qualifiers: Coronary Disease-Associated Artery/Lesion type: [place] artery [place] vs. transplanted heart: [place] heart Associated angina: without angina Qualified Code(s): I25.10 - Atherosclerotic heart disease of [place] coronary artery without angina pectoris Visit type - Emergency Visit Emergency Visit: Yes ED Registration Date: 01/29/17 Care time: The patient presented to the Emergency Department on the above date and was hospitalized for further evaluation of their emergent condition. - New Patient This patient is new to me today: No - Critical Care Critical Care patient: Yes Total Critical Care Time (in minutes): 45 Critical Care Statement: The care of this patient involved high complexity decision making to prevent further life threatening deterioration of the patient 's condition and/or to evalute & treat vital organ system(s) failure or risk of failure.
--- NOTE | 2017-02-17 19:44 | PN ---
Progress Note (short form) - Note Progress Note: noon up to date w events over w/e. Intub for airway protection and MS not improved Requiring pressor support now PE intub breathing over vent lungs - ant coarse vented bs cvs-reg S1S2 ext-no edema MS- unresponsive Imp: mult CVAs c/w embolic event; AF captured. 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 Appreciate ICU mgmt Will cont to follow w you
[2017-02-17] MEDS: ATORVASTATIN CA 40 MG TABLET (FP) PO SCH (22:11)
[2017-02-17] MEDS ORDERED: NOREPINEPHRINE BITARTRATE 4 MG/4 ML ML IV ONE (22:24)
[2017-02-17] MEDS: NOREPINEPHRINE BITARTRATE 8,000 MCG in DEXTROSE 5%-WATER - 492 ML IV SCH (22:32)
[2017-02-18] MEDS: MEROPENEM 500 MG in DEXTROSE 5%-WATER - 100 ML IVPB SCH (01:11)
[2017-02-18] MEDS: dilTIAZem HCL 50 MG/10 ML - 10 ML VIAL IVPUSH PRN (03:57)
[2017-02-18 06:07] LABS: MCH 27.1 pg (25.7-33.7); MCHC 31.6 g/dl (32.0-35.9); MEAN CELL VOLUME 85.6 fl (80-96); MEAN PLT VOLUME 9.6 fl (7.5-11.1); PLATELET COUNT 135 K/MM3 (134-434); RDW 18.2 % (11.9-15.9); WHITE BLOOD COUNT 20.6 K/mm3 (4.0-10.0)
[2017-02-18] MEDS: INSULIN SLIDING SCALE (NOVOLOG) 1 VIAL SQ SCH (06:41)
[2017-02-18 06:48] LABS: ANION GAP 7 (8-16); CO2 24 mmol/L (21-32); CREATININE 2.4 mg/dL (0.7-1.3); MAGNESIUM 3.1 mg/dL (1.8-2.4)
[2017-02-18 07:04] LABS: CALCIUM 6.7 mg/dL (8.5-10.1); GLUCOSE,RANDOM 308 mg/dL (74-106)
[2017-02-18 08:51] LABS: METAMYELOCYTE 4 % (0-2); PLATELET ESTIMATE ADEQUATE (NORMAL)
--- NOTE | 2017-02-18 09:23 | PN ---
Progress Note (short form) - Note Progress Note: I was called to evaluate again as he suddenly detiorated and pupils are dilated and fixed . Patient is off sedation and not repsonding to pain or verbal stimuli and now not breathing above vent. Initial stroke event was on february 10 and detioration of mental status. He has history of CAD, htn , hyperlipidemia admitted for pnemonia .and found to have right sided hemiparesis, mri showed multiple bi hemispheric stroke. Past Medical History as above and CLL, Polycythemia vera , renal insufficiency he is on oral anticoagulation and over the weekend he was intubated. Patient is off sedation at this time Neurological Examination bp is 85/51 Patient is comatose and not responding to pain or verabal stimulti no neck stiffness pupils is large and unreactive, corneal reflex is absent. gag reflex is absent ct scan done today february 18, showed there is diffuse cerebral edema and all the sulci are effaced. there is no bleed Assessment and Plan- diffuse cerebral edema , Patient is off sedation and no response to pain or verbal stimuli and pupils are unreactive, no corneal and gag reflex . There is no bleed. Either he has more cerebral embolic episodes or there is diffuse anoxic/hypoxic event to cause this diffuse cerebral edema. overall prognosis is poor, spoken to Dr To , ICU attending. Spoke to daughter ( tarah) , she may be coming with her and brother. We can have conference to discuss prognosis. -- continue supportive care thanks you so much Abilio Granado MD
[2017-02-18 09:48] LABS: URINE CREATININE 27.6 mg/dL (20-370)
[2017-02-18] MEDS ORDERED: DEXAMETHASONE SOD PHOSPHATE 10 MG/1 ML VIAL ONE (10:57)
[2017-02-18] MEDS ORDERED: PT OWN MED DRAWER 7, Y5N ONE (10:58)
[2017-02-18] MEDS: APIXABAN 5 MG TABLET PO SCH (11:17)
[2017-02-18] MEDS: MAGNESIUM OXIDE 400 MG TABLET (FP) PO SCH (11:18)
[2017-02-18] MEDS: TAMSULOSIN HCL 0.4 MG CAP.ER.24H (FP) PO SCH (11:18)
[2017-02-18] MEDS: METOPROLOL TARTRATE 25 MG TABLET (FP) NGT SCH (11:18)
[2017-02-18] MEDS: NYSTATIN 100,000 UNIT/GM TOPICAL CREAM 15 GM TUBE TP SCH (11:18)
[2017-02-18] MEDS: PANTOPRAZOLE SODIUM 100 ML IVPB SCH (11:18)
--- NOTE | 2017-02-18 11:29 | PN ---
Progress Note, Physician Chief Complaint: Unable to obtain, patient intubated - Current Medication List Current Medications: Active Medications Acetaminophen (Tylenol -) 650 mg PO Q6H PRN PRN Reason: FEVER OR PAIN Last Admin: 02/16/17 22:11 Dose: 650 mg Apixaban (Eliquis -) 5 mg PO BID [facility] Last Admin: 02/18/17 11:17 Dose: 5 mg Atorvastatin Calcium (Lipitor -) 40 mg PO HS [facility] Last Admin: 02/17/17 22:11 Dose: 40 mg Diltiazem HCl (Cardizem Injection -) 10 mg IVPUSH Q4H PRN PRN Reason: Tachycardia >100 Last Admin: 02/18/17 03:57 Dose: 10 mg Pantoprazole Sodium (Protonix 40mg Ivpb (Pre-Docked)) 100 mls @ 200 mls/hr IVPB DAILY [facility] Last Admin: 02/18/17 11:18 Dose: 200 mls/hr Norepinephrine Bitartrate 8, (000 mcg/ Dextrose) 500 mls @ 7.76 mls/hr IV ASDIR FREDY; 0.03 MCG/KG/MIN PRN Reason: Protocol Last Titration: 02/18/17 06:50 Dose: 0.14 mcg/kg/min Sodium Chloride (1/2 Normal Saline) 1,000 mls @ 42 mls/hr IV ASDIR FREDY Last Admin: 02/17/17 14:47 Dose: 42 mls/hr Insulin Aspart (Novolog Vial Sliding Scale -) 1 vial SQ BIDAC FREDY PRN Reason: Protocol Last Admin: 02/18/17 06:41 Dose: 6 units Magnesium Oxide (Mag-Ox -) 400 mg PO BID [facility] Last Admin: 02/18/17 11:18 Dose: 400 mg Metoprolol Tartrate (Lopressor -) 25 mg NGT BID [facility] Last Admin: 02/18/17 11:18 Dose: Not Given Nystatin (Mycostatin Cream -) 1 applic TP BID [facility] Last Admin: 02/18/17 11:18 Dose: 1 applic Ondansetron HCl (Zofran Injection) 4 mg IVPB Q6H PRN PRN Reason: NAUSEA Last Admin: 02/11/17 14:36 Dose: 4 mg Tamsulosin HCl (Flomax -) 0.4 mg PO DAILY@0830 [facility] Last Admin: 02/18/17 11:18 Dose: 0.4 mg - Objective Vital Signs: Vital Signs Temperature 98.3 F 02/18/17 06:00 Pulse Rate 88 02/18/17 07:23 Respiratory Rate 14 02/18/17 10:00 Blood Pressure 102/64 02/18/17 07:23 O2 Sat by Pulse Oximetry (%) 94 L 02/17/17 22:00 Constitutional: Yes: Other (obtunded) Eyes: Yes: Other (pupils fixed and dilated) Cardiovascular: Yes: Pulse Irregular. No: Gallop, Murmur, Rub Respiratory: Yes: Intubated, Mechanically Ventilated, Rhonchi Gastrointestinal: Yes: Normal Bowel Sounds, Soft. No: Distention, Tenderness Extremities: Yes: WNL Edema: No Labs: CBC, BMP 02/18/17 05:30 02/18/17 05:30 Problem List - Problems (1) Paroxysmal atrial fibrillation with rapid ventricular response Code(s): I48.0 - PAROXYSMAL ATRIAL FIBRILLATION (2) CVA (cerebral vascular accident) Code(s): I63.9 - CEREBRAL INFARCTION, UNSPECIFIED Qualifiers: CVA mechanism: embolism Precerebral and cerebral artery: anterior cerebral artery Laterality of affected vessel: left Qualified Code(s) : I63.422 - Cerebral infarction due to embolism of left anterior cerebral artery (3) Acute respiratory failure Code(s): J96.00 - ACUTE RESPIRATORY FAILURE, UNSP W HYPOXIA OR HYPERCAPNIA (4) Pneumonia, community acquired Code(s): J18.9 - PNEUMONIA, UNSPECIFIED ORGANISM (5) CKD (chronic kidney disease) Code(s): N18.9 - CHRONIC KIDNEY DISEASE, UNSPECIFIED Qualifiers: Chronic kidney disease stage: stage 2 (mild) Qualified Code(s): N18.2 - Chronic kidney disease, stage 2 (mild) (6) CLL (chronic lymphocytic leukemia) Code(s): C91.10 - CHRONIC LYMPHOCYTIC LEUK OF B-CELL TYPE NOT ACHIEVE REMIS (7) CAD (coronary artery disease) Code(s): I25.10 - ATHSCL HEART DISEASE OF [place] CORONARY ARTERY W/O ANG PCTRS Qualifiers: Coronary Disease-Associated Artery/Lesion type: [place] artery [place] vs. transplanted heart: [place] heart Associated angina: without angina Qualified Code(s): I25.10 - Atherosclerotic heart disease of [place] coronary artery without angina pectoris (8) HLD (hyperlipidemia) Code(s): E78.5 - HYPERLIPIDEMIA, UNSPECIFIED Qualifiers: Hyperlipidemia type: pure hypercholesterolemia Qualified Code(s): E78.00 - Pure hypercholesterolemia, unspecified; E78.0 - Pure hypercholesterolemia (9) HTN (hypertension) Code(s): I10 - ESSENTIAL (PRIMARY) HYPERTENSION Qualifiers: Hypertension type: essential hypertension Qualified Code(s): I10 - Essential (primary) hypertension (10) Hypercalcemia Code(s): E83.52 - HYPERCALCEMIA (11) Hypophosphatemia Code(s): E83.39 - OTHER DISORDERS OF PHOSPHORUS METABOLISM Assessment/Plan (1) Acute respiratory failure (2) Pneumonia, community acquired Code(s): J18.9 - PNEUMONIA, UNSPECIFIED ORGANISM (3) CKD (chronic kidney disease) Code(s): N18.9 - CHRONIC KIDNEY DISEASE, UNSPECIFIED Qualifiers: Chronic kidney disease stage: stage 2 (mild) Qualified Code(s): N18.2 - Chronic kidney disease, stage 2 (mild) (4) CLL (chronic lymphocytic leukemia) Code(s): C91.10 - CHRONIC LYMPHOCYTIC LEUK OF B-CELL TYPE NOT ACHIEVE REMIS (5) CAD (coronary artery disease) Code(s): I25.10 - ATHSCL HEART DISEASE OF [place] CORONARY ARTERY W/O ANG PCTRS (6) HLD (hyperlipidemia) Code(s): E78.5 - HYPERLIPIDEMIA, UNSPECIFIED (7) HTN (hypertension) Code(s): I10 - ESSENTIAL (PRIMARY) HYPERTENSION (8) Hypercalcemia (9) Acute CVA with obtundation (10) Paroxysmal atrial fibrillation (11) Septic shock (12) Herniation Plan -CT scan performed secondary to acute worsening of status -showing herniation secondary to vasogenic edema -d/w family -plan for palliative care
[2017-02-18] MEDS ORDERED: NOREPINEPHRINE BITARTRATE 4 MG/4 ML ML IV ONE (11:40)
[2017-02-18] MEDS ORDERED: DEXAMETHASONE SOD PHOSPHATE 10 MG/1 ML VIAL IVPUSH ONE (12:00)
[2017-02-18] MEDS: NOREPINEPHRINE BITARTRATE 8,000 MCG in DEXTROSE 5%-WATER - 492 ML IV SCH (12:00)
--- NOTE | 2017-02-18 12:15 | PN ---
Teaching Attending Note Name of Resident: Kevon Sky ATTENDING PHYSICIAN STATEMENT I saw and evaluated the patient. I reviewed the resident's note and discussed the case with the resident. I agree with the resident's findings and plan as documented. SUBJECTIVE: Pt seen and examined in the ICU. Remains intubated, unresponsive off sedation. Less tachypneic, initiates breaths. No cough, gag, pupillary, oculocephalic, cold calorics on exam. Remains on levophed gtt. CT head this AM showing left parafalcine and transtentorial herniation. OBJECTIVE: Last Vital Signs Temp Pulse Resp BP Pulse Ox 98.3 F 88 14 102/64 94 L 02/18/17 06:00 02/18/17 07:23 02/18/17 10:00 02/18/17 07:23 02/17/17 22:00 Intake & Output 02/15/17 02/16/17 02/17/17 02/18/17 23:59 23:59 23:59 23:59 Intake Total 1800 2700 3497 1948 Output Total 3075 2150 2300 300 Balance -9858 319 0333 1648 Weight 156 lb 152 lb 1.6 oz 150 lb 150 lb 1 oz Gen: intubated, unresponsive Heart: RRR Lung: scattered rhonchi Abd: soft, nontender Ext: + edema CBC, BMP 02/18/17 05:30 02/18/17 05:30 Active Medications Acetaminophen (Tylenol -) 650 mg PO Q6H PRN PRN Reason: FEVER OR PAIN Last Admin: 02/16/17 22:11 Dose: 650 mg Apixaban (Eliquis -) 5 mg PO BID FREDY Last Admin: 02/18/17 11:17 Dose: 5 mg Atorvastatin Calcium (Lipitor -) 40 mg PO HS FREDY Last Admin: 02/17/17 22:11 Dose: 40 mg Diltiazem HCl (Cardizem Injection -) 10 mg IVPUSH Q4H PRN PRN Reason: Tachycardia >100 Last Admin: 02/18/17 03:57 Dose: 10 mg Pantoprazole Sodium (Protonix 40mg Ivpb (Pre-Docked)) 100 mls @ 200 mls/hr IVPB DAILY FREDY Last Admin: 02/18/17 11:18 Dose: 200 mls/hr Norepinephrine Bitartrate 8, (000 mcg/ Dextrose) 500 mls @ 7.76 mls/hr IV ASDIR FREDY; 0.03 MCG/KG/MIN PRN Reason: Protocol Last Titration: 02/18/17 06:50 Dose: 0.14 mcg/kg/min Sodium Chloride (1/2 Normal Saline) 1,000 mls @ 42 mls/hr IV ASDIR FREDY Last Admin: 02/17/17 14:47 Dose: 42 mls/hr Insulin Aspart (Novolog Vial Sliding Scale -) 1 vial SQ BIDAC [facility] PRN Reason: Protocol Last Admin: 02/18/17 06:41 Dose: 6 units Magnesium Oxide (Mag-Ox -) 400 mg PO BID [facility] Last Admin: 02/18/17 11:18 Dose: 400 mg Metoprolol Tartrate (Lopressor -) 25 mg NGT BID [facility] Last Admin: 02/18/17 11:18 Dose: Not Given Nystatin (Mycostatin Cream -) 1 applic TP BID [facility] Last Admin: 02/18/17 11:18 Dose: 1 applic Ondansetron HCl (Zofran Injection) 4 mg IVPB Q6H PRN PRN Reason: NAUSEA Last Admin: 02/11/17 14:36 Dose: 4 mg Tamsulosin HCl (Flomax -) 0.4 mg PO DAILY@0830 [facility] Last Admin: 02/18/17 11:18 Dose: 0.4 mg ASSESSMENT AND PLAN: Acute Hypoxic Respiratory Failure Acute Bihemispheric Strokes Cerebral Edema/Herniation Paroxysmal Atrial Fibrillation Pneumonia Septic Shock CAD s/p CABG CLL HTN Hypercholesterolemia Acute on CKD - continue antibiotics - titrate levophed gtt, maintain MAP >65 - rate controlled - continue anticoagulation - minimize sedation to assess mental status - neurology f/u - replete lytes - enteral feeds - DVT/GI prophylaxis - continue ICU monitoring - pt approaching clincal brain , only preserved brainstem reflex is his spontaneous breaths, prognosis extremely poor for meaningful recovery critical care time spent in reviewing chart, evaluating patient and formulating plan 38 min Problem List - Problems (1) Pneumonia, community acquired Code(s): J18.9 - PNEUMONIA, UNSPECIFIED ORGANISM (2) CAD (coronary artery disease) Code(s): I25.10 - ATHSCL HEART DISEASE OF [place] CORONARY ARTERY W/O ANG PCTRS Qualifiers: Coronary Disease-Associated Artery/Lesion type: [place] artery [place] vs. transplanted heart: [place] heart Associated angina: without angina Qualified Code(s): I25.10 - Atherosclerotic heart disease of [place] coronary artery without angina pectoris (3) HLD (hyperlipidemia) Code(s): E78.5 - HYPERLIPIDEMIA, UNSPECIFIED Qualifiers: Hyperlipidemia type: pure hypercholesterolemia Qualified Code(s): E78.00 - Pure hypercholesterolemia, unspecified; E78.0 - Pure hypercholesterolemia (4) HTN (hypertension) Code(s): I10 - ESSENTIAL (PRIMARY) HYPERTENSION Qualifiers: Hypertension type: essential hypertension Qualified Code(s): I10 - Essential (primary) hypertension (5) CLL (chronic lymphocytic leukemia) Code(s): C91.10 - CHRONIC LYMPHOCYTIC LEUK OF B-CELL TYPE NOT ACHIEVE REMIS
--- NOTE | 2017-02-18 13:05 | PN ---
Progress Note, Physician Chief Complaint: Events noted Currently intubated for terminal wean History of Present Illness: Patient was seen and examined in ICU. On mechanical ventilator. Chart was reviewed Spoke with family by bedside - currently in the process of terminal wean. Hypotensive on Levophed - Current Medication List Current Medications: Active Medications Acetaminophen (Tylenol -) 650 mg PO Q6H PRN PRN Reason: FEVER OR PAIN Last Admin: 02/16/17 22:11 Dose: 650 mg Apixaban (Eliquis -) 5 mg PO BID FREDY Last Admin: 02/18/17 11:17 Dose: 5 mg Atorvastatin Calcium (Lipitor -) 40 mg PO HS FREDY Last Admin: 02/17/17 22:11 Dose: 40 mg Diltiazem HCl (Cardizem Injection -) 10 mg IVPUSH Q4H PRN PRN Reason: Tachycardia >100 Last Admin: 02/18/17 03:57 Dose: 10 mg Pantoprazole Sodium (Protonix 40mg Ivpb (Pre-Docked)) 100 mls @ 200 mls/hr IVPB DAILY [facility] Last Admin: 02/18/17 11:18 Dose: 200 mls/hr Norepinephrine Bitartrate 8, (000 mcg/ Dextrose) 500 mls @ 7.76 mls/hr IV ASDIR FREDY; 0.03 MCG/KG/MIN PRN Reason: Protocol Last Titration: 02/18/17 06:50 Dose: 0.14 mcg/kg/min Sodium Chloride (1/2 Normal Saline) 1,000 mls @ 42 mls/hr IV ASDIR FREDY Last Admin: 02/17/17 14:47 Dose: 42 mls/hr Insulin Aspart (Novolog Vial Sliding Scale -) 1 vial SQ BIDAC FREDY PRN Reason: Protocol Last Admin: 02/18/17 06:41 Dose: 6 units Magnesium Oxide (Mag-Ox -) 400 mg PO BID FREDY Last Admin: 02/18/17 11:18 Dose: 400 mg Metoprolol Tartrate (Lopressor -) 25 mg NGT BID [facility] Last Admin: 02/18/17 11:18 Dose: Not Given Nystatin (Mycostatin Cream -) 1 applic TP BID FREDY Last Admin: 02/18/17 11:18 Dose: 1 applic Ondansetron HCl (Zofran Injection) 4 mg IVPB Q6H PRN PRN Reason: NAUSEA Last Admin: 02/11/17 14:36 Dose: 4 mg Tamsulosin HCl (Flomax -) 0.4 mg PO DAILY@0830 [facility] Last Admin: 02/18/17 11:18 Dose: 0.4 mg - Objective Vital Signs: Vital Signs Temperature 98.3 F 02/18/17 06:00 Pulse Rate 88 02/18/17 07:23 Respiratory Rate 14 02/18/17 10:00 Blood Pressure 102/64 02/18/17 07:23 O2 Sat by Pulse Oximetry (%) 94 L 02/17/17 22:00 Cardiovascular: Yes: Tachycardia, Pulse Irregular, S1, S2 Respiratory: Yes: Mechanically Ventilated, Rhonchi Gastrointestinal: Yes: Soft Edema: No Labs: CBC, BMP 02/18/17 05:30 02/18/17 05:30 Problem List - Problems (1) CKD (chronic kidney disease) Code(s): N18.9 - CHRONIC KIDNEY DISEASE, UNSPECIFIED Qualifiers: Chronic kidney disease stage: stage 2 (mild) Qualified Code(s): N18.2 - Chronic kidney disease, stage 2 (mild) (2) CLL (chronic lymphocytic leukemia) Code(s): C91.10 - CHRONIC LYMPHOCYTIC LEUK OF B-CELL TYPE NOT ACHIEVE REMIS (3) Pneumonia, community acquired Code(s): J18.9 - PNEUMONIA, UNSPECIFIED ORGANISM (4) CAD (coronary artery disease) Code(s): I25.10 - ATHSCL HEART DISEASE OF [place] CORONARY ARTERY W/O ANG PCTRS Qualifiers: Coronary Disease-Associated Artery/Lesion type: [place] artery [place] vs. transplanted heart: [place] heart Associated angina: without angina Qualified Code(s): I25.10 - Atherosclerotic heart disease of [place] coronary artery without angina pectoris (5) HLD (hyperlipidemia) Code(s): E78.5 - HYPERLIPIDEMIA, UNSPECIFIED Qualifiers: Hyperlipidemia type: pure hypercholesterolemia Qualified Code(s): E78.00 - Pure hypercholesterolemia, unspecified; E78.0 - Pure hypercholesterolemia (6) HTN (hypertension) Code(s): I10 - ESSENTIAL (PRIMARY) HYPERTENSION Qualifiers: Hypertension type: essential hypertension Qualified Code(s): I10 - Essential (primary) hypertension (7) Hypercalcemia Code(s): E83.52 - HYPERCALCEMIA (8) Ascending aortic aneurysm Code(s): I71.2 - THORACIC AORTIC ANEURYSM, WITHOUT RUPTURE (9) Hypokalemia Code(s): E87.6 - HYPOKALEMIA (10) Hx of CABG Code(s): Z95.1 - PRESENCE OF AORTOCORONARY BYPASS GRAFT Assessment/Plan 1. Post community acquired pneumonia now with respiratory failure on mechanical ventilator 2. CVA/acute frontoparietal cortical infarct 3. Persistent atrial fibrillation with variable ventricular response 4. Coronary artery disease status post CABG, angina pectoris 5. History of hypertension currently hypotensive on pressor support 6. Hypercholesterolemia 7. Ascending aortic aneurysm 8. CLL 9. Hypokalemia and hypercalcemia 10. anemia 11. CKD PLAN: 1. Terminal wean 2. Continue supportive care Prognosis: poor Garret Estes MD
[2017-02-18] MEDS ORDERED: morphine CARPU-JECT 4 MG/1 ML DISP.SYRIN IVPUSH ONE (13:27)
[2017-02-18] MEDS ORDERED: MORPHINE 100 MG in SODIUM CHLORIDE 98 ML IVPB SCH (13:30)
--- NOTE | 2017-02-18 13:31 | PN ---
Progress Note (short form) - Note Progress Note: CCM Had family meeting with daughter, neurologist. Updated them on patient's condition and very poor prognosis given herniation on CT head and clinical exam. They have decided to compassionately extubate and initiate comfort measures. Pt now DNR/DNI. Santos To MD Problem List - Problems (1) Pneumonia, community acquired Code(s): J18.9 - PNEUMONIA, UNSPECIFIED ORGANISM (2) CAD (coronary artery disease) Code(s): I25.10 - ATHSCL HEART DISEASE OF [place] CORONARY ARTERY W/O ANG PCTRS Qualifiers: Coronary Disease-Associated Artery/Lesion type: [place] artery [place] vs. transplanted heart: [place] heart Associated angina: without angina Qualified Code(s): I25.10 - Atherosclerotic heart disease of [place] coronary artery without angina pectoris (3) HLD (hyperlipidemia) Code(s): E78.5 - HYPERLIPIDEMIA, UNSPECIFIED Qualifiers: Hyperlipidemia type: pure hypercholesterolemia Qualified Code(s): E78.00 - Pure hypercholesterolemia, unspecified; E78.0 - Pure hypercholesterolemia (4) HTN (hypertension) Code(s): I10 - ESSENTIAL (PRIMARY) HYPERTENSION Qualifiers: Hypertension type: essential hypertension Qualified Code(s): I10 - Essential (primary) hypertension (5) CLL (chronic lymphocytic leukemia) Code(s): C91.10 - CHRONIC LYMPHOCYTIC LEUK OF B-CELL TYPE NOT ACHIEVE REMIS
--- NOTE | 2017-02-18 13:37 | PN ---
Progress Note, Physician History of Present Illness: Pt seen and examined at bedside. He remains in the ICU. Pt remains intubated and on vent. - Current Medication List Current Medications: Active Medications Acetaminophen (Tylenol -) 650 mg PO Q6H PRN PRN Reason: FEVER OR PAIN Last Admin: 02/16/17 22:11 Dose: 650 mg Apixaban (Eliquis -) 5 mg PO BID FREDY Last Admin: 02/18/17 11:17 Dose: 5 mg Atorvastatin Calcium (Lipitor -) 40 mg PO HS FREDY Last Admin: 02/17/17 22:11 Dose: 40 mg Diltiazem HCl (Cardizem Injection -) 10 mg IVPUSH Q4H PRN PRN Reason: Tachycardia >100 Last Admin: 02/18/17 03:57 Dose: 10 mg Pantoprazole Sodium (Protonix 40mg Ivpb (Pre-Docked)) 100 mls @ 200 mls/hr IVPB DAILY [facility] Last Admin: 02/18/17 11:18 Dose: 200 mls/hr Norepinephrine Bitartrate 8, (000 mcg/ Dextrose) 500 mls @ 7.76 mls/hr IV ASDIR FREDY; 0.03 MCG/KG/MIN PRN Reason: Protocol Last Titration: 02/18/17 06:50 Dose: 0.14 mcg/kg/min Sodium Chloride (1/2 Normal Saline) 1,000 mls @ 42 mls/hr IV ASDIR FREDY Last Admin: 02/17/17 14:47 Dose: 42 mls/hr Morphine Sulfate 100 mg/ (Sodium Chloride) 100 mls @ 4 mls/hr IVPB TITR FREDY; 4 MG/HR PRN Reason: Protocol Stop: 02/19/17 13:29 Insulin Aspart (Novolog Vial Sliding Scale -) 1 vial SQ BIDAC [facility]EDY PRN Reason: Protocol Last Admin: 02/18/17 06:41 Dose: 6 units Magnesium Oxide (Mag-Ox -) 400 mg PO BID [facility]EDY Last Admin: 02/18/17 11:18 Dose: 400 mg Metoprolol Tartrate (Lopressor -) 25 mg NGT BID [facility] Last Admin: 02/18/17 11:18 Dose: Not Given Morphine Sulfate (Morphine Injection -) 4 mg IVPUSH ONCE ONE Stop: 02/18/17 13:28 Nystatin (Mycostatin Cream -) 1 applic TP BID [facility] Last Admin: 02/18/17 11:18 Dose: 1 applic Ondansetron HCl (Zofran Injection) 4 mg IVPB Q6H PRN PRN Reason: NAUSEA Last Admin: 02/11/17 14:36 Dose: 4 mg Tamsulosin HCl (Flomax -) 0.4 mg PO DAILY@0830 [facility]Y Last Admin: 02/18/17 11:18 Dose: 0.4 mg - Objective Vital Signs: Vital Signs Temperature 98.3 F 02/18/17 06:00 Pulse Rate 88 02/18/17 07:23 Respiratory Rate 14 02/18/17 10:00 Blood Pressure 102/64 02/18/17 07:23 O2 Sat by Pulse Oximetry (%) 94 L 02/17/17 22:00 Constitutional: Yes: Calm Neck: Yes: Supple Cardiovascular: Yes: Tachycardia, S1, S2 Respiratory: Yes: Mechanically Ventilated Genitourinary: Yes: [place] Present Musculoskeletal: Yes: Muscle Weakness Edema: No Neurological: Yes: Lethargy Labs: CBC, BMP 02/18/17 05:30 02/18/17 05:30 Problem List - Problems (1) CLL (chronic lymphocytic leukemia) Code(s): C91.10 - CHRONIC LYMPHOCYTIC LEUK OF B-CELL TYPE NOT ACHIEVE REMIS (2) Hypercalcemia Code(s): E83.52 - HYPERCALCEMIA Assessment/Plan Current Medications Generic Name Dose Route Start Last Admin Trade Name Freq PRN Reason Stop Dose Admin Acetaminophen 650 mg 02/04/17 12:32 02/16/17 22:11 Tylenol - PO 650 mg Q6H PRN Administration FEVER OR PAIN Apixaban 5 mg 02/13/17 22:00 02/18/17 11:17 Eliquis - PO 5 mg BID FREDY Administration Atorvastatin Calcium 40 mg 02/10/17 22:00 02/17/17 22:11 Lipitor - PO 40 mg HS FREDY Administration Diltiazem HCl 10 mg 02/13/17 05:42 02/18/17 03:57 Cardizem Injection - IVPUSH 10 mg Q4H PRN Administration Tachycardia >100 Pantoprazole Sodium 100 mls @ 200 mls/hr 02/14/17 10:00 02/18/17 11:18 Protonix 40mg Ivpb (Pre-Docked) IVPB 200 mls/hr DAILY [facility]EDY Administration Norepinephrine Bitartrate 8, 500 mls @ 7.76 mls/hr 02/16/17 20:45 02/18/17 06: 50 000 mcg/ Dextrose IV 0.14 mcg/kg/min ASDIR FREDY Titration Protocol 0.03 MCG/KG/MIN Sodium Chloride 1,000 mls @ 42 mls/hr 02/17/17 13:45 02/17/17 14:47 1/2 Normal Saline IV 42 mls/hr ASDIR FREDY Administration Morphine Sulfate 100 mg/ 100 mls @ 4 mls/hr 02/18/17 13:30 Sodium Chloride IVPB 02/19/17 13:29 TITR FREDY Protocol 4 MG/HR Insulin Aspart 1 vial 02/09/17 16:30 02/18/17 06:41 Novolog Vial Sliding Scale - SQ 6 units BIDAC FREDY Administration Protocol Magnesium Oxide 400 mg 02/04/17 22:00 02/18/17 11:18 Mag-Ox - PO 400 mg BID FREDY Administration Metoprolol Tartrate 25 mg 02/16/17 19:56 02/18/17 11:18 Lopressor - NGT Not Given BID FREDY Morphine Sulfate 4 mg 02/18/17 13:27 Morphine Injection - IVPUSH 02/18/17 13:28 ONCE ONE Nystatin 1 applic 02/12/17 23:15 02/18/17 11:18 Mycostatin Cream - TP 1 applic BID FREDY Administration Ondansetron HCl 4 mg 02/10/17 19:29 02/11/17 14:36 Zofran Injection IVPB 4 mg Q6H PRN Administration NAUSEA Tamsulosin HCl 0.4 mg 02/05/17 08:30 02/18/17 11:18 Flomax - PO 0.4 mg DAILY@0830 FREDY Administration Impression 1. Hypercalcemia 2. CAD 3. HTN 4. Chol 5. hx leukemia 6. non hodgkins lymphoma 7. CKD 8. hypokalemia 9. CVA 10. JEROMY Plan - renal function is worsening today - reviewed urines studies from yesterday and he had a FENa of 1.7. - ua however is still pending - he is likely developing ATN - family had meeting with the ICU team and pt will be comfort care - cont current care - neurology follow up - will follow Dr Hopper
--- NOTE | 2017-02-18 14:20 | PN ---
Progress Note (short form) - Note Progress Note: -Patient's monitor showed aystole -Patient unresponsive to verbal and noxious stimuli. -There were no lung or heart sounds upon auscultation -Peripheral pulses were absent. -The pupils were fixed and dilated. -The patient was pronounced at 14:00. -Daughter and family were notified by me of patient's -Nurse to notify primary care physician Problem List - Problems (1) CLL (chronic lymphocytic leukemia) Code(s): C91.10 - CHRONIC LYMPHOCYTIC LEUK OF B-CELL TYPE NOT ACHIEVE REMIS (2) Pneumonia, community acquired Code(s): J18.9 - PNEUMONIA, UNSPECIFIED ORGANISM (3) CAD (coronary artery disease) Code(s): I25.10 - ATHSCL HEART DISEASE OF [place] CORONARY ARTERY W/O ANG PCTRS Qualifiers: Coronary Disease-Associated Artery/Lesion type: [place] artery [place] vs. transplanted heart: [place] heart Associated angina: without angina Qualified Code(s): I25.10 - Atherosclerotic heart disease of [place] coronary artery without angina pectoris
--- NOTE | 2017-02-18 14:28 | PN ---
Physical Exam: SUBJECTIVE: Patient seen and examined. Patient was found to no longer be over- breathing the ventilator. Patient's agonal breathing pattern has ceased. OBJECTIVE: Vital Signs Temperature 98.3 F 02/18/17 06:00 Pulse Rate 131 H 02/18/17 12:00 Respiratory Rate 14 02/18/17 10:00 Blood Pressure 88/51 02/18/17 12:00 O2 Sat by Pulse Oximetry (%) 94 L 02/17/17 22:00 GENERAL: The patient is not reactive to verbal or noxious stimuli. HEAD: Normal with no signs of trauma. EYES: Pupils fixed and dilated. There are no extraocular movements. LUNGS: Breath sounds equal, clear to auscultation bilaterally, no wheezes, no crackles, no accessory muscle use. HEART: Regular rate and rhythm, S1, S2 without murmur, rub or gallop. NEUROLOGICAL: Vestibulo-ocular reflex is absent. No reaction to cold calorimetry observed. Corneal reflexes absent. Laboratory Results - last 24 hr 02/17/17 02/17/17 02/17/17 08:00 08:00 08:00 WBC RBC Hgb Hct MCV MCH MCHC RDW Plt Count MPV Neutrophils % Lymphocytes % Band Neutrophils Metamyelocytes Differential Comment Platelet Estimate PTT (Actin FS) Sodium Potassium Chloride Carbon Dioxide Anion Gap BUN Creatinine POC Glucometer Random Glucose Calcium Phosphorus Magnesium Urine Color Cancelled Urine Appearance Cancelled Urine pH Cancelled Ur Specific [place] Cancelled Urine Protein Cancelled Urine Glucose (UA) Cancelled Urine Clinitest Cancelled Urine Ketones Cancelled Urine Blood Cancelled Urine Nitrite Cancelled Urine Bilirubin Cancelled Urine Ictotest Cancelled Prot Sulfosalicylic Acd Cancelled Urine Urobilinogen Cancelled Ur Leukocyte Esterase Cancelled Ur Random Sodium 42 Ur Random Potassium 43.9 Ur Random Chloride 76 Urine Creatinine 27.6 Cancelled 02/17/17 02/18/17 02/18/17 16:51 05:30 05:30 WBC 20.6 H RBC 3.03 L Hgb 8.2 L Hct 25.9 L MCV 85.6 MCH 27.1 MCHC 31.6 L RDW 18.2 H Plt Count 135 MPV 9.6 Neutrophils % 89.0 H Lymphocytes % 1.0 L D Band Neutrophils 6.0 D Metamyelocytes 4 H D Differential Comment Manual diff done Platelet Estimate Adequate PTT (Actin FS) 40.7 H Sodium Potassium Chloride Carbon Dioxide Anion Gap BUN Creatinine POC Glucometer [phone] Random Glucose Calcium Phosphorus Magnesium Urine Color Urine Appearance Urine pH Ur Specific [place] Urine Protein Urine Glucose (UA) Urine Clinitest Urine Ketones Urine Blood Urine Nitrite Urine Bilirubin Urine Ictotest Prot Sulfosalicylic Acd Urine Urobilinogen Ur Leukocyte Esterase Ur Random Sodium Ur Random Potassium Ur Random Chloride Urine Creatinine 02/18/17 02/18/17 05:30 05:37 WBC RBC Hgb Hct MCV MCH MCHC RDW Plt Count MPV Neutrophils % Lymphocytes % Band Neutrophils Metamyelocytes Differential Comment Platelet Estimate PTT (Actin FS) Sodium 149 H Potassium 4.4 D Chloride 118 H Carbon Dioxide 24 Anion Gap 7 L BUN 79 H D Creatinine 2.4 H D POC Glucometer [phone] Random Glucose 308 H* Calcium 6.7 L* Phosphorus 3.0 D Magnesium 3.1 H Urine Color Urine Appearance Urine pH Ur Specific [place] Urine Protein Urine Glucose (UA) Urine Clinitest Urine Ketones Urine Blood Urine Nitrite Urine Bilirubin Urine Ictotest Prot Sulfosalicylic Acd Urine Urobilinogen Ur Leukocyte Esterase Ur Random Sodium Ur Random Potassium Ur Random Chloride Urine Creatinine Active Medications Generic Name Dose Route Start Last Admin Trade Name Freq PRN Reason Stop Dose Admin Acetaminophen 650 mg 02/04/17 12:32 02/16/17 22:11 Tylenol - PO 650 mg Q6H PRN Administration FEVER OR PAIN Apixaban 5 mg 02/13/17 22:00 02/18/17 11:17 Eliquis - PO 5 mg BID FREDY Administration Atorvastatin Calcium 40 mg 02/10/17 22:00 02/17/17 22:11 Lipitor - PO 40 mg HS FREDY Administration Diltiazem HCl 10 mg 02/13/17 05:42 02/18/17 03:57 Cardizem Injection - IVPUSH 10 mg Q4H PRN Administration Tachycardia >100 Pantoprazole Sodium 100 mls @ 200 mls/hr 02/14/17 10:00 02/18/17 11:18 Protonix 40mg Ivpb (Pre-Docked) IVPB 200 mls/hr DAILY FREDY Administration Norepinephrine Bitartrate 8, 500 mls @ 7.76 mls/hr 02/16/17 20:45 02/18/17 12: 00 000 mcg/ Dextrose IV 25 mls/hr ASDIR FREDY Administration Protocol 0.03 MCG/KG/MIN Sodium Chloride 1,000 mls @ 42 mls/hr 02/17/17 13:45 02/17/17 14:47 1/2 Normal Saline IV 42 mls/hr ASDIR FREDY Administration Morphine Sulfate 100 mg/ 100 mls @ 4 mls/hr 02/18/17 13:30 02/18/17 13:47 Sodium Chloride IVPB 02/19/17 13:29 4 mls/hr TITR FREDY Administration Protocol 4 MG/HR Insulin Aspart 1 vial 02/09/17 16:30 02/18/17 06:41 Novolog Vial Sliding Scale - SQ 6 units BIDAC FREDY Administration Protocol Magnesium Oxide 400 mg 02/04/17 22:00 02/18/17 11:18 Mag-Ox - PO 400 mg BID FREDY Administration Metoprolol Tartrate 25 mg 02/16/17 19:56 02/18/17 11:18 Lopressor - NGT Not Given BID FREDY Nystatin 1 applic 02/12/17 23:15 02/18/17 11:18 Mycostatin Cream - TP 1 applic BID FREDY Administration Ondansetron HCl 4 mg 02/10/17 19:29 02/11/17 14:36 Zofran Injection IVPB 4 mg Q6H PRN Administration NAUSEA Tamsulosin HCl 0.4 mg 02/05/17 08:30 02/18/17 11:18 Flomax - PO 0.4 mg DAILY@0830 FREDY Administration ASSESSMENT/PLAN: 76 year old male pmh HTN, HLD, CLL, peptic ulcer, 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 Neuro -patient not responsive to external stimuli off sedation -pupils fixed and dilated Pulmonary -Patient intubated to protect airway 2/2 to deteriorating mental status -saturating 97 on a/c vent, rate of 14 -FIO2 40% -will continue to monitor Cardio -new onset afib w/ RVR -brief run of RVR overnight; patient now in NSR -will monitor -hypotension -patient -monitor blood pressure FEN -NS w/ 20 meq KCL @ 100 -patient remains hypokalemic -gave 40 meq KCL liquid through NG tube -will continue to monitor lytes -tube feeds at 50; increased free water to 50 Problem List - Problems (1) CLL (chronic lymphocytic leukemia) Code(s): C91.10 - CHRONIC LYMPHOCYTIC LEUK OF B-CELL TYPE NOT ACHIEVE REMIS (2) Pneumonia, community acquired Code(s): J18.9 - PNEUMONIA, UNSPECIFIED ORGANISM (3) CAD (coronary artery disease) Code(s): I25.10 - ATHSCL HEART DISEASE OF [place] CORONARY ARTERY W/O ANG PCTRS Qualifiers: Coronary Disease-Associated Artery/Lesion type: [place] artery [place] vs. transplanted heart: [place] heart Associated angina: without angina Qualified Code(s): I25.10 - Atherosclerotic heart disease of [place] coronary artery without angina pectoris
[2017-02-18 15:26] VITALS: BP 94/53; PULSE 127; TEMP 98.4
--- NOTE | 2017-02-18 17:30 | DS ---
Physical Examination Vital Signs: Vital Signs Temperature 98.4 F 02/18/17 13:00 Pulse Rate 127 H 02/18/17 13:00 Respiratory Rate 14 02/18/17 13:00 Blood Pressure 94/53 02/18/17 13:00 O2 Sat by Pulse Oximetry (%) 96 02/18/17 09:00 Labs: CBC, BMP 02/18/17 05:30 02/18/17 05:30 Discharge Summary Reason For Visit: COMMUNITY AQUIRED PNEUMONIA Current Active Problems Acute respiratory failure (Acute) Anemia (Acute) Ascending aortic aneurysm (Acute) At risk for aspiration (Acute) Atrial fibrillation (Acute) CKD (chronic kidney disease) (Acute) CLL (chronic lymphocytic leukemia) (Acute) CVA (cerebral vascular accident) (Acute) Chronic leukemia (Acute) 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 heart failure (Acute) Hx of CABG (Acute) Hypokalemia (Acute) Hypophosphatemia (Acute) Paroxysmal atrial fibrillation with rapid ventricular response (Acute) Pneumonia, community acquired (Acute) Condition: Stable - Instructions Referrals: Jamel Love MD [Primary Care Provider] - - Home Medications Comprehensive Discharge Medication List: Ambulatory Orders Aspirin [ASA -] 81 mg PO DAILY 05/07/13 Pravastatin Sodium [Pravachol -] 20 mg PO HS 05/10/13 Silodosin [Rapaflo] 8 mg PO DAILY 05/10/13 Metoprolol Succinate [Toprol Xl] 50 mg PO DAILY 09/28/15 Amlodipine Besylate [Norvasc -] 5 mg PO DAILY #30 tablet 09/13/16 Magnesium Oxide [Mag-Ox -] 400 mg PO BID 01/29/17 Prednisone [Deltasone] 10 mg PO HS 01/29/17 Quinapril HCl [Accupril] 40 mg PO DAILY 01/29/17 Ibrutinib [Imbruvica] 420 mg PO DAILY 01/30/17 Prednisone 5 mg PO DAILY 01/30/17
--- NOTE | 2017-02-18 18:56 | CONSULT ---
Consult - text type - Consultation Consultation Note: NEUROLOGY SECOND OPINION is greatly appreciated: Patient attended at 9:30 AM. Events reviewed and discussed with ICU staff. Multiple neuroimages reviewed. Briefly, this 76 yo man with h/o CLL/Lymphoma, HTN, ASHD s/p stents was on chronic low-dose prednisone therapy. Admitted after 2 weeks of progressive fatigue, weakness and SOB with temps to 102. Persistent, moderate, leukocytosis, in spite of multiple antibiotic Rx. Serial chest X-Rays seemed to show a pattern of interstitial infiltrates coalescing into nodules and then "masses." Beginning around 02/10 patient began to display evidence of left-sided weakness followed by speech arrest. CT and MRI at that time already showed a pattern of multiple infarcts, many cortical, involving both hemispheres, cerebellum and brainstem. Serial CT scans followed showing relentless accumulation of ischemic damage, inspite of anticoagulation, culminating in today's CT showing massive left cerebral edema, severe effacement of the left ventricular system, massive left to right shift and uncal, cingulate and tonsillar herniation. Patient was given decadron 10 mg bolus on Friday when he became unresponsive, without significant response, according to RN. EDE: Intubated. NEURO: Unresponsive to pain. No spontaneous respirations Pupils fixed and dilated No EOM's to Doll's head No corneal reflexes. Flaccid, areflexic. IMP: No evidence of cerebral or brainstem function (Brain ) due to massive SEAM FINISHER edema and herniation. The underlying etiology would appear to be ischemic and/or infectious ( cerebritis). Considerations might include multiple emboli, possible septic, from SBE although there are no obvious systemic signs of this which one would expect. Instead, I would consider processes predominantly involving the SEAM FINISHER and lungs such as a vasculitis, possibly Varicella in an immunocompromised host. Suggest: Try bolus decadron, 10 mg now. ? 1 bolus of mannitol? Complete Brain protocol. Thank you very much, Ron Vogt MD
== END 2017-02-18 15:00 | disposition expired | DRG 208 ==
LOC: JER 13:47 → JERBED 17:18 → J8W 19:40 → JICU 02-02 10:50 → J5S 02-04 20:28 → J4W 02-10 21:24 → JICU 02-12 15:28
PROVIDERS: ADMIT Internal Medicine; ATTEND Internal Medicine
PROC: 05HM33Z Insertion of Infusion Device into Right Internal Jugular Vein, Percutaneous Approach (ICD-10-PCS; principal; 2017-02-14)
PROC: 5A1945Z Respiratory Ventilation, 24-96 Consecutive Hours (ICD-10-PCS; 2017-02-15)
PROC: 0CHY7BZ Insertion of Airway into Mouth and Throat, Via Natural or Artificial Opening (ICD-10-PCS; 2017-02-15)
DX: J18.9 Pneumonia, unspecified organism (principal); J96.01 Acute respiratory failure with hypoxia; I63.8 Other cerebral infarction; G93.6 Cerebral edema; A41.89 Other specified sepsis; R65.21 Severe sepsis with septic shock; G93.5 Compression of brain; C91.10 Chronic lymphocytic leukemia of B-cell type not having achieved remission; N17.9 Acute kidney failure, unspecified; C85.80 Other specified types of non-Hodgkin lymphoma, unspecified site; K86.2 Cyst of pancreas; G81.91 Hemiplegia, unspecified affecting right dominant side; R47.01 Aphasia; E87.0 Hyperosmolality and hypernatremia; E78.00 Pure hypercholesterolemia, unspecified; I25.10 Atherosclerotic heart disease of native coronary artery without angina pectoris; Z95.1 Presence of aortocoronary bypass graft; D13.2 Benign neoplasm of duodenum; K27.9 Peptic ulcer, site unspecified, unspecified as acute or chronic, without hemorrhage or perforation; N36.2 Urethral caruncle; K52.89 Other specified noninfective gastroenteritis and colitis; K21.9 Gastro-esophageal reflux disease without esophagitis; K29.60 Other gastritis without bleeding; N40.0 Benign prostatic hyperplasia without lower urinary tract symptoms; I12.9 Hypertensive chronic kidney disease with stage 1 through stage 4 chronic kidney disease, or unspecified chronic kidney disease; N18.2 Chronic kidney disease, stage 2 (mild); E83.52 Hypercalcemia; D45 Polycythemia vera; Z88.0 Allergy status to penicillin; E87.6 Hypokalemia; E83.39 Other disorders of phosphorus metabolism; R50.9 Fever, unspecified; I71.2 Thoracic aortic aneurysm, without rupture; R91.1 Solitary pulmonary nodule; D64.9 Anemia, unspecified; M25.511 Pain in right shoulder; Z91.89 Other specified personal risk factors, not elsewhere classified; I48.0 Paroxysmal atrial fibrillation; R49.0 Dysphonia; R40.2434 Glasgow coma scale score 3-8, 24 hours or more after hospital admission; J69.0 Pneumonitis due to inhalation of food and vomit; I95.89 Other hypotension
CPT/HCPCS: 31500; 36415; 36600; 70450-TC; 70551-TC; 71010-TC; 71020-TC; 71250-TC; 73030-TC-RT; 80048; 80053; 80061; 81003; 82310; 82436; 82550; 82570; 82803; 82947; 83605; 83721; 83735; 83880; 83970; 84100; 84133; 84300; 84484; 85025; 85027; 85651; 85730; 86140; 87040; 87070; 87086; 87107; 87205; 87899; 93005; 93010; 93306-TC; 93880-TC; 94002; 94010; 94640; 94761; 97116-GP; 97161-GP; 99284-25; J1644